=== PATIENT | male | born 1960 | race Caucasian/White ===

== ENCOUNTER 2017-02-27 08:25 | Emergency (ER) | payer BC ==
[2017-02-27 08:41] VITALS: BP 151/66
[2017-02-27] MEDS ORDERED: Sodium Chloride 0.9% 1,000 ML IV ONE (08:42)
--- NOTE | 2017-02-27 08:42 | EDM.PDOC ---
ED HPI GENERAL MEDICAL PROBLEM - General Chief Complaint: Neuro Symptoms/Deficits Stated Complaint: altered mental status Time Seen by Provider: 02/27/17 08:30 Source of Information: Reports: EMS, Family History Limitations: Reports: Altered Mental Status - History of Present Illness INITIAL COMMENTS - FREE TEXT/NARRATIVE: 56 yo wm PMH of IDDM who presents to ER by private car due to blood sugar of 60. Pt was able to assist from wheelchair to bed but currently refuses to respond to commands. Pt does verbalize to friends at bedside but appears altered. Pt blood sugar in ER was 80. Pt is currently hemodynamically stable and apparently has history of anxiety attacks but unclear if this behavior has occurred in the past. Onset: Sudden Duration: Hour(s): (1) Improves with: Reports: None Worsens with: Reports: None Associated Symptoms: Reports: No Other Symptoms. Denies: Confusion, Fever/ Chills, Seizure - Related Data Allergies Allergy/AdvReac Type Severity Reaction Status Date / Time No Known Drug Allergies Allergy Cannot Verified 02/27/17 08:58 Remember Home Meds: Home Meds Acetaminophen [Tylenol] 650 mg PO TID 02/27/17 [History] Aspirin [Ecotrin] 1 tab PO DAILY 02/27/17 [History] Calcium Carbonate/Vitamin D3 [Calcium 600 + Vit D 400 Softgl] 1 tab PO BIDMEALS 02/27/17 [History] Hydrochlorothiazide 1 tab PO DAILY 02/27/17 [History] Insulin Aspart [NovoLOG] 30 units SQ ACDINNER 02/27/17 [History] Insulin Aspart [NovoLOG] 35 units SQ ASDIRECTED 02/27/17 [History] Insulin Glarg,Human.Rec.Analog [Lantus] 30 units SQ ACBREAKFAST 02/27/17 [ History] Insulin Glarg,Human.Rec.Analog [Lantus] 45 units SQ BEDTIME 02/27/17 [History] Omeprazole 1 cap PO DAILY 02/27/17 [History] Polyethylene Glycol 3350 [MiraLAX] 1 pkt PO DAILY PRN 02/27/17 [History] Rosuvastatin [Crestor] 2.5 mg PO DAILY 02/27/17 [History] ED ROS GENERAL - Review of Systems Review Of Systems: See Below Constitutional: Reports: No Symptoms HEENT: Reports: No Symptoms Respiratory: Reports: No Symptoms Cardiovascular: Reports: No Symptoms Endocrine: Reports: No Symptoms GI/Abdominal: Reports: No Symptoms : Reports: No Symptoms Musculoskeletal: Reports: No Symptoms Skin: Reports: No Symptoms Neurological: Reports: No Symptoms Psychiatric: Reports: Anxiety Hematologic/Lymphatic: Reports: No Symptoms Immunologic: Reports: No Symptoms ED EXAM, GENERAL - Physical Exam Exam: See Below Exam Limited By: Altered Mental Status General Appearance: Alert, Anxious Eye Exam: Bilateral Eye: EOMI, PERRL Nose: Normal Inspection, Normal Mucosa, No Blood Throat/Mouth: Normal Inspection, Normal Lips, Normal Teeth, Normal Gums, Normal Oropharynx, Normal Voice, No Airway Compromise Head: Atraumatic, Normocephalic Neck: Normal Inspection, Supple, Non-Tender, Full Range of Motion Respiratory/Chest: No Respiratory Distress, Lungs Clear, Normal Breath Sounds, No Accessory Muscle Use, Chest Non-Tender Cardiovascular: Normal Peripheral Pulses, Regular Rate, Rhythm, No Edema, No Gallop, No JVD, No Murmur, No Rub GI/Abdominal: Normal Bowel Sounds, Soft, Non-Tender, No Organomegaly, No Distention, No Abnormal Bruit, No Mass Back Exam: Normal Inspection, Full Range of Motion, NT Extremities: Normal Inspection, Normal Range of Motion, Non-Tender, Normal Capillary Refill, No Pedal Edema Neurological: CN II-XII Intact, Slow to Respond. No: Unresponsive, Abnormal Reflexes, Sensory/Motor Deficit Psychiatric: Anxious, Depressed Mood Skin Exam: Warm, Dry, Intact, Normal Color, No Rash Lymphatic: No Adenopathy EKG INTERPRETATION EKG Date: 02/27/17 Time: 09:02 Rhythm: NSR Rate (beats/min): 85 [place]: normal P-wave: present QRS: normal ST-T: normal QT: normal Comparison: NA - no prior EKG Course - Vital Signs Last Recorded V/S: Last Vital Signs Temp 37.4 C 02/27/17 08:35 Pulse 88 02/27/17 08:35 Resp 20 02/27/17 08:35 BP 151/66 H 02/27/17 08:35 Pulse Ox 94 L 02/27/17 08:35 - Orders/Labs/Meds Orders: Active Orders 24 hr Category Date Time Status EKG Documentation Completion [RC] ASDIRECTED Care 02/27/17 08:43 Active Chest 1V Frontal [CR] Stat Exams 02/27/17 08:42 Taken Head wo Cont [CT] Stat Exams 02/27/17 08:42 Taken EKG 12 Lead [EK] Routine Ther 02/27/17 08:42 Ordered Labs: Laboratory Tests 02/27/17 02/27/17 Range/Units 08:59 08:59 WBC 11.1 H (5.0-10.0) 10^3/uL RBC 4.10 L (4.50-6.00) 10^6/uL Hgb 12.6 L (13.0-17.0) g/dL Hct 38.0 L (40.0-52.0) % MCV 92.7 H (82.0-92.0) fL MCH 30.8 (27.0-31.0) pg MCHC 33.2 (32.0-36.0) g/dL RDW 12.2 (11.5-14.5) % Plt Count 449 H (150-300) 10^3/uL MPV 8.4 (7.4-10.4) fL Neut % (Auto) 75.8 H (50.0-70.0) % Lymph % (Auto) 16.7 L (20.0-40.0) % [place] % (Auto) 5.5 (2.0-8.0) % Eos % (Auto) 2.0 (1.0-3.0) % Baso % (Auto) 0.0 (0.0-1.0) % Neut # (Auto) 8.4 H (2.5-7.0) 10^3/uL Lymph # (Auto) 1.9 (1.0-4.0) 10^3/uL [place] # (Auto) 0.6 (0.1-0.8) 10^3/uL Eos # (Auto) 0.2 (0.1-0.3) 10^3/uL Baso # (Auto) 0.0 (0.0-0.1) 10^3/uL Sodium 140 (136-145) mmol/L Potassium 3.9 (3.3-5.3) mmol/L Chloride 101 (98-115) mmol/L Carbon Dioxide 31.3 (21.0-32.0) mmol/L BUN 20 (6-25) mg/dL Creatinine 0.71 (0.51-1.17) mg/dL Est Cr Clr Drug Dosing 135.07 mL/min Estimated GFR (MDRD) > 60 mL/min Glucose 108 (70-110) mg/dL Calcium 8.9 (8.7-10.3) mg/dL Total Bilirubin 0.8 (0.2-1.0) mg/dL AST 34 (15-37) U/L ALT 27 (12-78) U/L Alkaline Phosphatase 97 (46-116) IU/L Creatine Kinase 234 (26-276) U/L CK-MB (CK-2) 4.40 H* (0.00-4.30) ng/mL Troponin I < 0.04 (0.00-0.070) ng/mL Total Protein 8.4 H (6.4-8.2) g/dL Albumin 3.46 (3.00-4.80) g/dL Meds: Medications Discontinued Medications Generic Name Dose Route Start Last Admin Trade Name Freq PRN Reason Stop Dose Admin Sodium Chloride 1,000 mls @ 999 mls/hr 02/27/17 08:42 02/27/17 09:25 Normal Saline IV 02/27/17 09:42 999 mls/hr .BOLUS ONE Administration - Radiology Interpretation Free Text/Narrative:: CT Brain- NAD CXR- NAD Departure - Departure Time of Disposition: 09:44 Disposition: Refer to Observation Condition: fair Clinical Impression: Anxiety and depression, Conversion disorder Altered mental state Qualifiers: Altered mental status type: unspecified Qualified Code(s): R41.82 - Altered mental status, unspecified - Discharge Information Referrals: PCP,Unobtain [Primary Care Provider] - Forms: ED Department Discharge - My Orders Last 24 Hours: My Active Orders 02/27/17 08:42 Chest 1V Frontal [CR] Stat Head wo Cont [CT] Stat EKG 12 Lead [EK] Routine 02/27/17 08:43 EKG Documentation Completion [RC] ASDIRECTED - Assessment/Plan Last 24 Hours: My Active Orders 02/27/17 08:42 Chest 1V Frontal [CR] Stat Head wo Cont [CT] Stat EKG 12 Lead [EK] Routine 02/27/17 08:43 EKG Documentation Completion [RC] ASDIRECTED Assessment:: 1. Altered mental Status 2. Anxiety disorder Plan: 1. [facility] to [facility] for [facility] and further management
[2017-02-27 09:33] LABS: CHLORIDE,CL 101 mmol/L (98-115); SODIUM,NA 140 mmol/L (136-145)
--- NOTE | 2017-02-27 14:02 | EDM.PDOC ---
ED HPI GENERAL MEDICAL PROBLEM - General Chief Complaint: Neuro Symptoms/Deficits Stated Complaint: UNRESPONSIVE Time Seen by Provider: 02/27/17 13:30 Source of Information: Reports: EMS, Family History Limitations: Reports: Altered Mental Status - History of Present Illness INITIAL COMMENTS - FREE TEXT/NARRATIVE: 56 yo wm PMH of IDDM who presents to ER by private car due to blood sugar of 60. Pt was able to assist from wheelchair to bed but currently refuses to respond to commands. Pt does verbalize to friends at bedside but appears altered. Pt blood sugar in ER was 80. Pt is currently hemodynamically stable and apparently has history of anxiety attacks but unclear if this behavior has occurred in the past. Onset: Sudden Duration: Hour(s): (1) Improves with: Reports: None Worsens with: Reports: None Associated Symptoms: Reports: No Other Symptoms. Denies: Confusion, Fever/ Chills, Seizure - Related Data Allergies Allergy/AdvReac Type Severity Reaction Status Date / Time No Known Drug Allergies Allergy Cannot Verified 02/27/17 08:58 Remember Home Meds: Home Meds Acetaminophen [Tylenol] 650 mg PO TID 02/27/17 [History] Aspirin [Ecotrin] 1 tab PO DAILY 02/27/17 [History] Calcium Carbonate/Vitamin D3 [Calcium 600 + Vit D 400 Softgl] 1 tab PO BIDMEALS 02/27/17 [History] Hydrochlorothiazide 1 tab PO DAILY 02/27/17 [History] Insulin Aspart [NovoLOG] 30 units SQ ACDINNER 02/27/17 [History] Insulin Aspart [NovoLOG] 35 units SQ ASDIRECTED 02/27/17 [History] Insulin Glarg,Human.Rec.Analog [Lantus] 30 units SQ ACBREAKFAST 02/27/17 [ History] Insulin Glarg,Human.Rec.Analog [Lantus] 45 units SQ BEDTIME 02/27/17 [History] Omeprazole 1 cap PO DAILY 02/27/17 [History] Polyethylene Glycol 3350 [MiraLAX] 1 pkt PO DAILY PRN 02/27/17 [History] Rosuvastatin [Crestor] 2.5 mg PO DAILY 02/27/17 [History] Past Medical History Cardiovascular History: Reports: High Cholesterol, Hypertension Gastrointestinal History: Reports: GERD Genitourinary History: Reports: Chronic Renal Insuffiency Musculoskeletal History: Reports: Neck Pain, Chronic Neurological History: Reports: Neuropathy, Diabetic Endocrine/Metabolic History: Reports: Diabetes, Type II, IDDM, Obesity/BMI 30+ - Infectious Disease History Infectious Disease History: Reports: MRSA - Past Surgical History GI Surgical History: Reports: Appendectomy, Cholecystectomy Musculoskeletal Surgical History: Reports: Arthroscopic Knee Social & Family History - Tobacco Use Smoking Status *Q: Never Smoker Second Hand Smoke Exposure: No - Caffeine Use Caffeine Use: Reports: None - Recreational Drug Use Recreational Drug Use: No ED ROS GENERAL - Review of Systems Review Of Systems: See Below Constitutional: Denies: Fever HEENT: Denies: Throat Pain, Vision Change Respiratory: Denies: Shortness of Breath Cardiovascular: Denies: Chest Pain GI/Abdominal: Denies: Abdominal Pain, Vomiting : Reports: No Symptoms Musculoskeletal: Reports: No Symptoms Skin: Reports: No Symptoms Neurological: Denies: Headache, Trouble Speaking Psychiatric: Reports: Anxiety ED EXAM, NEURO - Physical Exam Exam: See Below Exam Limited By: No Limitations General Appearance: Alert, WD/WN, Anxious Eye Exam: Bilateral Eye: EOMI, Normal Inspection, PERRL Ears: Normal External Exam, Hearing Grossly Normal Nose: Normal Inspection, No Blood. No: Nasal Drainage Throat/Mouth: Normal Lips, Normal Voice, No Airway Compromise Head Exam: Atraumatic, Normocephalic Neck: Normal Inspection, Supple, Non-Tender, Full Range of Motion Respiratory/Chest: No Respiratory Distress, Lungs Clear, Normal Breath Sounds, No Accessory Muscle Use Cardiovascular: Regular Rate, Rhythm, No Murmur GI/Abdominal: Soft, Non-Tender Neurological: Alert, CN II-XII Intact, No Motor/Sensory Deficits, Oriented x 3 Psychiatric: Anxious, Tearful, Other (Patient tells me he is getting overwhelmed with the responsibilities at work since a co-worker is out on maternity leave; and also that he is stressed about transportation to and from work since he can't drive.) Skin Exam: Warm, Dry, Intact, Normal Color, No Rash Course - Vital Signs Last Recorded V/S: Last Vital Signs Temp 99.3 F 02/27/17 08:35 Pulse 88 02/27/17 08:35 Resp 20 02/27/17 08:35 BP 151/66 H 02/27/17 08:35 Pulse Ox 94 L 02/27/17 08:35 - Orders/Labs/Meds Orders: Active Orders 24 hr Category Date Time Status EKG Documentation Completion [RC] ASDIRECTED Care 02/27/17 08:43 Active Chest 1V Frontal [CR] Stat Exams 02/27/17 08:42 Taken Head wo Cont [CT] Stat Exams 02/27/17 08:42 Taken EKG 12 Lead [EK] Routine Ther 02/27/17 08:42 Ordered Labs: Laboratory Tests 02/27/17 02/27/17 02/27/17 Range/Units 08:59 08:59 11:18 WBC 11.1 H (5.0-10.0) 10^3/uL RBC 4.10 L (4.50-6.00) 10^6/uL Hgb 12.6 L (13.0-17.0) g/dL Hct 38.0 L (40.0-52.0) % MCV 92.7 H (82.0-92.0) fL MCH 30.8 (27.0-31.0) pg MCHC 33.2 (32.0-36.0) g/dL RDW 12.2 (11.5-14.5) % Plt Count 449 H (150-300) 10^3/uL MPV 8.4 (7.4-10.4) fL Neut % (Auto) 75.8 H (50.0-70.0) % Lymph % (Auto) 16.7 L (20.0-40.0) % [place] % (Auto) 5.5 (2.0-8.0) % Eos % (Auto) 2.0 (1.0-3.0) % Baso % (Auto) 0.0 (0.0-1.0) % Neut # (Auto) 8.4 H (2.5-7.0) 10^3/uL Lymph # (Auto) 1.9 (1.0-4.0) 10^3/uL [place] # (Auto) 0.6 (0.1-0.8) 10^3/uL Eos # (Auto) 0.2 (0.1-0.3) 10^3/uL Baso # (Auto) 0.0 (0.0-0.1) 10^3/uL Sodium 140 (136-145) mmol/L Potassium 3.9 (3.3-5.3) mmol/L Chloride 101 (98-115) mmol/L Carbon Dioxide 31.3 (21.0-32.0) mmol/L BUN 20 (6-25) mg/dL Creatinine 0.71 (0.51-1.17) mg/dL Est Cr Clr Drug Dosing 135.07 mL/min Estimated GFR (MDRD) > 60 mL/min Glucose 108 (70-110) mg/dL POC Glucose 81 (74-106) mg/dl Calcium 8.9 (8.7-10.3) mg/dL Total Bilirubin 0.8 (0.2-1.0) mg/dL AST 34 (15-37) U/L ALT 27 (12-78) U/L Alkaline Phosphatase 97 (46-116) IU/L Creatine Kinase 234 (26-276) U/L CK-MB (CK-2) 4.40 H* (0.00-4.30) ng/mL Troponin I < 0.04 (0.00-0.070) ng/mL Total Protein 8.4 H (6.4-8.2) g/dL Albumin 3.46 (3.00-4.80) g/dL Urine Opiates Screen (NEGATIVE) Ur Oxycodone Screen (NEGATIVE) Urine Methadone Screen (NEGATIVE) Ur Propoxyphene Screen (NEGATIVE) Ur Barbiturates Screen (NEGATIVE) Ur Tricyclics Screen (NEGATIVE) Ur Phencyclidine Scrn (NEGATIVE) Ur Amphetamine Screen (NEGATIVE) U Methamphetamines Scrn (NEGATIVE) U Benzodiazepines Scrn (NEGATIVE) U Cocaine Metab Screen (NEGATIVE) U Marijuana (THC) Screen (NEGATIVE) 02/27/17 Range/Units 12:52 WBC (5.0-10.0) 10^3/uL RBC (4.50-6.00) 10^6/uL Hgb (13.0-17.0) g/dL Hct (40.0-52.0) % MCV (82.0-92.0) fL MCH (27.0-31.0) pg MCHC (32.0-36.0) g/dL RDW (11.5-14.5) % Plt Count (150-300) 10^3/uL MPV (7.4-10.4) fL Neut % (Auto) (50.0-70.0) % Lymph % (Auto) (20.0-40.0) % [place] % (Auto) (2.0-8.0) % Eos % (Auto) (1.0-3.0) % Baso % (Auto) (0.0-1.0) % Neut # (Auto) (2.5-7.0) 10^3/uL Lymph # (Auto) (1.0-4.0) 10^3/uL [place] # (Auto) (0.1-0.8) 10^3/uL Eos # (Auto) (0.1-0.3) 10^3/uL Baso # (Auto) (0.0-0.1) 10^3/uL Sodium (136-145) mmol/L Potassium (3.3-5.3) mmol/L Chloride (98-115) mmol/L Carbon Dioxide (21.0-32.0) mmol/L BUN (6-25) mg/dL Creatinine (0.51-1.17) mg/dL Est Cr Clr Drug Dosing mL/min Estimated GFR (MDRD) mL/min Glucose (70-110) mg/dL POC Glucose (74-106) mg/dl Calcium (8.7-10.3) mg/dL Total Bilirubin (0.2-1.0) mg/dL AST (15-37) U/L ALT (12-78) U/L Alkaline Phosphatase (46-116) IU/L Creatine Kinase (26-276) U/L CK-MB (CK-2) (0.00-4.30) ng/mL Troponin I (0.00-0.070) ng/mL Total Protein (6.4-8.2) g/dL Albumin (3.00-4.80) g/dL Urine Opiates Screen Negative (NEGATIVE) Ur Oxycodone Screen Negative (NEGATIVE) Urine Methadone Screen Negative (NEGATIVE) Ur Propoxyphene Screen Negative (NEGATIVE) Ur Barbiturates Screen Negative (NEGATIVE) Ur Tricyclics Screen Negative (NEGATIVE) Ur Phencyclidine Scrn Negative (NEGATIVE) Ur Amphetamine Screen Negative (NEGATIVE) U Methamphetamines Scrn Negative (NEGATIVE) U Benzodiazepines Scrn Negative (NEGATIVE) U Cocaine Metab Screen Negative (NEGATIVE) U Marijuana (THC) Screen Negative (NEGATIVE) Meds: Medications Discontinued Medications Generic Name Dose Route Start Last Admin Trade Name Pablo PRN Reason Stop Dose Admin Sodium Chloride 1,000 mls @ 999 mls/hr 02/27/17 08:42 02/27/17 09:25 Normal Saline IV 02/27/17 09:42 999 mls/hr .BOLUS ONE Administration - Re-Assessments/Exams Free Text/Narrative Re-Assessment/Exam: 02/27/17 14:07 Took over this patient who has been in observation for a few hours. Labs are okay and UDS is negative. When I walked into the room and addressed him and introduced myself he opened his eyes briefly and then rubbed his face and eyes and began conversing with me. He says he is stressed about his [id number] having to drive him the six miles from home to and from work everyday and that he is having difficulty with the workload also since his co-worker has been on maternity leave. He works in [employer] at [employer] and has worked there for 37 years. He feels like he is a burden to everybody. I asked if he has any help from psych social worker and he denies. I asked if moving to town where he could walk to work would be an option but he doesn't know. He lives with his 91 year old mother [place] farm. He feels okay right now and feels like he could go home. Jose Alfredo Chatman, psych social worker, was notified and will follow up with him. Patient discharged in stable condition. Departure - Departure Time of Disposition: 14:09 Disposition: Home, Self-Care 01 Condition: fair Clinical Impression: Anxiety and depression, Conversion disorder Altered mental state Qualifiers: Altered mental status type: unspecified Qualified Code(s): R41.82 - Altered mental status, unspecified - Discharge Information Referrals: PCP,Unobtain [Primary Care Provider] - Forms: ED Department Discharge Additional Instructions: 1. No work for two days. 2. financial services auditor will be in contact with you to see if they can help with any of the transportation and work challenges. 3. Follow up with your primary doctor in 1-3 days for recheck.
== END 2017-02-27 14:35 | disposition home or self-care (01) ==
LOC: KA.ED 08:25
DX: R41.82 Altered mental status, unspecified (principal); F41.9 Anxiety disorder, unspecified; F32.9 Major depressive disorder, single episode, unspecified; F44.9 Dissociative and conversion disorder, unspecified; I12.9 Hypertensive chronic kidney disease with stage 1 through stage 4 chronic kidney disease, or unspecified chronic kidney disease; E11.22 Type 2 diabetes mellitus with diabetic chronic kidney disease; N18.9 Chronic kidney disease, unspecified; E11.40 Type 2 diabetes mellitus with diabetic neuropathy, unspecified; E66.9 Obesity, unspecified; E78.00 Pure hypercholesterolemia, unspecified; Z68.30 Body mass index [BMI] 30.0-30.9, adult; Z90.49 Acquired absence of other specified parts of digestive tract; Z79.82 Long term (current) use of aspirin; Z79.4 Long term (current) use of insulin; Z79.899 Other long term (current) drug therapy; Z96.659 Presence of unspecified artificial knee joint
CPT/HCPCS: 70450; 71010; 80053; 80305; 82550; 82553; 82962; 84484; 85025; 93005; 96360; 96361; 99284; J7030

== ENCOUNTER 2017-03-14 11:00 | Emergency (ER) | payer BC ==
[2017-03-14 11:24] VITALS: BP 137/65
--- NOTE | 2017-03-14 11:45 | EDM.PDOC ---
ED HPI GENERAL MEDICAL PROBLEM - General Chief Complaint: Behavioral/Psych Stated Complaint: anxiety Time Seen by Provider: 03/14/17 11:27 Source of Information: Reports: Patient History Limitations: Reports: No Limitations - History of Present Illness INITIAL COMMENTS - FREE TEXT/NARRATIVE: PT STATES WHILE HE WAS WORKING THIS AM, HE DEVELOPED WEAKNESS. SAID TO HAVE POSSIBLE PANIC ATTACK BY STAFF AT FACILITY. QUESTIONABLE ACTIONS PER EMS TO WHETHER HE IS HAVING PANIC ATTACK AND IF LOSES CONSCIOUSNESS OR NOT. GENERAL SUPERINTENDENT, JAZLYN ELENA HAS INTERVENED PREVIOUSLY ON THE PT'S BEHALF AND IS AWARE OF THE DYNAMICS INVOLVED WITH CONDITION. PT DENIES CP, SOB, JEAN, ANY FALL OR TRAUMA , SUICIDAL OR HOMICIDAL IDEATION. 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 Onset: Today Onset Date: 03/14/17 Onset Time: 10:00 Severity: Mild Improves with: Reports: None Worsens with: Reports: None Associated Symptoms: Reports: Weakness - Related Data Allergies Allergy/AdvReac Type Severity Reaction Status Date / Time No Known Drug Allergies Allergy Cannot Verified 03/14/17 11:21 Remember Home Meds: Home Meds Acetaminophen [Tylenol] 650 mg PO TID 02/27/17 [History] Aspirin [Ecotrin] 1 tab PO DAILY 02/27/17 [History] Calcium Carbonate/Vitamin D3 [Calcium 600 + Vit D 400 Softgl] 1 tab PO BIDMEALS 02/27/17 [History] Hydrochlorothiazide 1 tab PO DAILY 02/27/17 [History] Insulin Aspart [NovoLOG] 30 units SQ ACDINNER 02/27/17 [History] Insulin Aspart [NovoLOG] 35 units SQ ASDIRECTED 02/27/17 [History] Insulin Glarg,Human.Rec.Analog [Lantus] 30 units SQ ACBREAKFAST 02/27/17 [ History] Insulin Glarg,Human.Rec.Analog [Lantus] 45 units SQ BEDTIME 02/27/17 [History] Omeprazole 1 cap PO DAILY 02/27/17 [History] Polyethylene Glycol 3350 [MiraLAX] 1 pkt PO DAILY PRN 02/27/17 [History] Rosuvastatin [Crestor] 2.5 mg PO DAILY 02/27/17 [History] Escitalopram [Lexapro] 10 mg PO DAILY 03/14/17 [History] Liraglutide [Victoza] 1.8 mg SUBCUT DAILY 03/14/17 [History] Sulfamethoxazole/Trimethoprim [Bactrim Ds Tablet] 1 each PO BID 03/14/17 [ History] metFORMIN [Glucophage] 1,000 mg PO BIDMEALS 03/14/17 [History] Past Medical History Cardiovascular History: Reports: High Cholesterol, Hypertension Gastrointestinal History: Reports: GERD Genitourinary History: Reports: Chronic Renal Insuffiency Musculoskeletal History: Reports: Neck Pain, Chronic Neurological History: Reports: Neuropathy, Diabetic Endocrine/Metabolic History: Reports: Diabetes, Type II, IDDM, Obesity/BMI 30+ - Infectious Disease History Infectious Disease History: Reports: MRSA - Past Surgical History GI Surgical History: Reports: Appendectomy, Cholecystectomy Musculoskeletal Surgical History: Reports: Arthroscopic Knee Social & Family History - Tobacco Use Smoking Status *Q: Never Smoker Second Hand Smoke Exposure: No - Caffeine Use Caffeine Use: Reports: None - Recreational Drug Use Recreational Drug Use: No ED ROS GENERAL - Review of Systems Review Of Systems: ROS reveals no pertinent complaints other than HPI. Constitutional: Reports: Weakness HEENT: Reports: No Symptoms Respiratory: Reports: No Symptoms Cardiovascular: Reports: No Symptoms Endocrine: Reports: No Symptoms GI/Abdominal: Reports: No Symptoms : Reports: No Symptoms Musculoskeletal: Reports: No Symptoms Skin: Reports: No Symptoms Neurological: Reports: Dizziness Psychiatric: Reports: Anxiety. Denies: Homicidal Ideation, Suicidal Ideation Hematologic/Lymphatic: Reports: No Symptoms Immunologic: Reports: No Symptoms ED EXAM, BEHAVIORAL HEALTH - Physical Exam Exam: See Below Exam Limited By: No Limitations General Appearance: Alert, WD/WN, No Apparent Distress Eye Exam: Bilateral Eye: Normal Inspection Nose: Normal Inspection, Normal Mucosa, No Blood Throat/Mouth: Normal Inspection, Normal Oropharynx, No Airway Compromise Head: Atraumatic, Normocephalic Neck: Normal Inspection, Supple, Non-Tender Respiratory/Chest: No Respiratory Distress, Lungs Clear, Normal Breath Sounds, No Accessory Muscle Use, Chest Non-Tender Cardiovascular: Regular Rate, Rhythm, No Murmur, No Rub GI/Abdominal: Normal Bowel Sounds, Soft, Non-Tender, No Organomegaly, No Distention, No Abnormal Bruit, No Mass Back Exam: Normal Inspection. No: CVA Tenderness (L), CVA Tenderness (R) Extremities: Normal Inspection, Normal Range of Motion, Non-Tender, No Pedal Edema Neurological: Alert, CN II-XII Intact, Normal Cognition, No Motor/Sensory Deficits Psychiatric: Alert, Normal Cognition, Oriented, Flat Affect Skin Exam: Warm, Dry, Intact, Normal color, No rash EKG INTERPRETATION EKG Date: 03/14/17 Time: 11:45 Rhythm: NSR Rate (beats/min): 72 [place]: normal P-wave: present QRS: normal ST-T: normal QT: normal Comparison: NA - no prior EKG COURSE, BEHAVIORAL HEALTH COMP - Course Vital Signs: Last Vital Signs Temp 98.8 F 03/14/17 11:17 Pulse 72 03/14/17 11:17 Resp 20 03/14/17 11:17 BP 137/65 03/14/17 11: Pulse Ox 96 03/14/17 11:17 Orders, Labs, Meds: Active Orders 24 hr Category Date Time Status EKG Documentation Completion [RC] ASDIRECTED Care 03/14/17 11:28 Ordered CBC WITH AUTO DIFF [HEME] Stat Lab 03/14/17 11:27 Ordered COMPREHENSIVE METABOLIC PN,CMP [CHEM] Stat Lab 03/14/17 11:27 Ordered UA W/MICROSCOPIC [URIN] Stat Lab 03/14/17 11:27 Uncollected EKG 12 Lead [EK] Routine Ther 03/14/17 11:28 Ordered Re-Assessment/Re-Exam: PT AFEBRILE, NONTOXIC APPEARING, VSS, ACTING APPROPRIATE. DENIES CP, SOB, JEAN, SUICIDAL IDEATION. SISTER IN LAW PICKING UP PT. Departure - Departure Time of Disposition: 12:49 Disposition: Home, Self-Care 01 Condition: good Clinical Impression: Anxiety, Anxiety and depression - Discharge Information Instructions: Panic Attacks, [id number] Forms: ED Department Discharge Additional Instructions: FOLLOW UP WITH PCP IN NEXT 2 DAYS. RETURN TO ER SOONER IF SYMPTOMS CONTINUE. TAKE MEDICATION DIRECTED - My Orders Last 24 Hours: My Active Orders 03/14/17 11:27 CBC WITH AUTO DIFF [HEME] Stat COMPREHENSIVE METABOLIC PN,CMP [CHEM] Stat UA W/MICROSCOPIC [URIN] Stat 03/14/17 11:28 EKG Documentation Completion [RC] ASDIRECTED EKG 12 Lead [EK] Routine - Assessment/Plan Last 24 Hours: My Active Orders 03/14/17 11:27 CBC WITH AUTO DIFF [HEME] Stat COMPREHENSIVE METABOLIC PN,CMP [CHEM] Stat UA W/MICROSCOPIC [URIN] Stat 03/14/17 11:28 EKG Documentation Completion [RC] ASDIRECTED EKG 12 Lead [EK] Routine Assessment:: ANXIETY Plan: F/U WITH PCP AND SOURCING CONSULTANT
[2017-03-14] MEDS ORDERED: Sodium Chloride 0.9% 1,000 ML IV ONE (12:19)
== END 2017-03-14 13:30 | disposition home or self-care (01) ==
LOC: KA.ED 11:00
DX: F32.9 Major depressive disorder, single episode, unspecified (principal); F41.9 Anxiety disorder, unspecified; E78.00 Pure hypercholesterolemia, unspecified; K21.9 Gastro-esophageal reflux disease without esophagitis; E11.40 Type 2 diabetes mellitus with diabetic neuropathy, unspecified; E66.9 Obesity, unspecified; Z79.82 Long term (current) use of aspirin; Z79.4 Long term (current) use of insulin; Z79.84 Long term (current) use of oral hypoglycemic drugs; Z90.49 Acquired absence of other specified parts of digestive tract; Z98.890 Other specified postprocedural states; Z68.37 Body mass index [BMI] 37.0-37.9, adult
CPT/HCPCS: 80053; 81001; 85025; 96360; 99284; J7030; 93005

== ENCOUNTER 2017-05-11 08:39 | Inpatient (IN) | payer BC ==
[2017-05-11] MEDS ORDERED: cefTRIAXone 2 GM Vial IV SCH (16:00)
[2017-05-11] MEDS ORDERED: Polyethylene Glycol 3350 Powder 17 GM Packet PO PRN (16:09)
[2017-05-11] MEDS: Insulin Regular, Human 100 Units/ML 10 ML Vial SUBCUT SCH ×2 (17:40→21:33)
[2017-05-11] MEDS: Calcium Citrate/Vitamin D3 315 MG-250 Unit Tab PO SCH (17:44)
[2017-05-11] MEDS: metFORMIN 500 MG Tab PO SCH (17:45)
[2017-05-11] MEDS: Losartan 50 MG Tab PO SCH (21:09)
[2017-05-11] MEDS: Insulin Detemir 100 Units/ML 3 ML Pen SUBCUT SCH (21:10)
[2017-05-11] MEDS: Potassium Chloride 10 MEQ Tab.ER PO SCH (21:10)
[2017-05-11] MEDS: metroNIDAZOLE 500 MG Tab PO SCH (21:10)
[2017-05-11] MEDS: Acetaminophen 325 MG Tab PO SCH (21:37)
[2017-05-12] MEDS: Insulin Regular, Human 100 Units/ML 10 ML Vial SUBCUT SCH ×4 (07:15→21:24)
[2017-05-12] MEDS: Calcium Citrate/Vitamin D3 315 MG-250 Unit Tab PO SCH ×2 (09:03→17:19)
[2017-05-12] MEDS: metFORMIN 500 MG Tab PO SCH ×2 (09:03→17:19)
[2017-05-12] MEDS: Aspirin 325 MG Tab.EC PO SCH (09:04)
[2017-05-12] MEDS: Omeprazole 20 MG Cap.CR PO SCH (09:04)
[2017-05-12] MEDS: Potassium Chloride 10 MEQ Tab.ER PO SCH ×2 (09:05→21:21)
[2017-05-12] MEDS: metroNIDAZOLE 500 MG Tab PO SCH ×3 (09:05→21:21)
[2017-05-12] MEDS: Hydrochlorothiazide 25 MG Tab PO SCH (09:05)
[2017-05-12] MEDS: Rosuvastatin 10 MG Tab PO SCH (09:06)
[2017-05-12] MEDS: Acetaminophen 325 MG Tab PO SCH ×3 (09:07→21:21)
[2017-05-12] MEDS: Escitalopram 10 MG Tab PO SCH (09:07)
[2017-05-12] MEDS: Losartan 50 MG Tab PO SCH ×2 (09:08→21:21)
[2017-05-12] MEDS: Insulin Detemir 100 Units/ML 3 ML Pen SUBCUT SCH ×2 (09:08→21:22)
[2017-05-12] MEDS: Liraglutide (rDNA Origin) 0.6 MG/0.1 ML 3 ML Pen SUBCUT SCH (09:09)
--- NOTE | 2017-05-12 09:53 | PCM.HP ---
H&P History of Present Illness - General Date of Service: 05/12/17 Source of Information: Patient, Old Records, RN History Limitations: Reports: No Limitations - History of Present Illness Initial Comments - Free Text/Narative: This 56-year-old gentleman with long-standing diabetes mellitus is in swing bed status for wound VAC therapy due to a left diabetic foot ulcer. Patient underwent left foot irrigation and debridement with excision of nonviable soft tissue and bone with wound VAC placement by Dr. Barrow in [facility]. He currently has a PICC line in. He is to continue with Rocephin for 6 weeks along with oral Flagyl for anaerobic coverage per ID recommendations. Culture demonstrated strep. Patient had Zosyn and vancomycin previously. Patient has had history of MRSA, however current cultures did not grow MRSA. Patient had normal AB index. He had previously been placed in offloading boot however wound continued to increase in size and depth. He had a negative MRI for osteomyelitis - Related Data Allergies/Adverse Reactions: Allergies Allergy/AdvReac Type Severity Reaction Status Date / Time No Known Drug Allergies Allergy Cannot Verified 05/11/17 16:15 Remember Home Medications: Home Meds Acetaminophen [Tylenol] 650 mg PO TID 02/27/17 [History] Aspirin [Ecotrin] 1 tab PO DAILY 02/27/17 [History] Calcium Carbonate/Vitamin D3 [Calcium 600 + Vit D 400 Softgl] 1 tab PO BIDMEALS 02/27/17 [History] Hydrochlorothiazide 1 tab PO DAILY 02/27/17 [History] Insulin Aspart [NovoLOG] 3 - 11 units SQ ASDIRECTED 02/27/17 [History] Insulin Aspart [NovoLOG] 25 units SQ TID 02/27/17 [History] Insulin Glarg,Human.Rec.Analog [Lantus] 33 units SQ BID 02/27/17 [History] Omeprazole 1 cap PO DAILY 02/27/17 [History] Polyethylene Glycol 3350 [MiraLAX] 1 pkt PO DAILY PRN 02/27/17 [History] Rosuvastatin [Crestor] 5 mg PO DAILY 02/27/17 [History] Liraglutide [Victoza] 1.8 mg SUBCUT DAILY 03/14/17 [History] metFORMIN [Glucophage] 1,000 mg PO BIDMEALS 03/14/17 [History] Acetaminophen with Codeine [Tylenol with Codeine #3 Tablet] 1 - 2 tab PO Q4H PRN 05/11/17 [History] Escitalopram [Lexapro] 10 mg PO DAILY 05/11/17 [History] Losartan [Cozaar] 50 mg PO BID 05/11/17 [History] Potassium Chloride 10 meq PO BID 05/11/17 [History] cefTRIAXone [Rocephin] 2 g IV Q24H 05/11/17 [History] metroNIDAZOLE [Flagyl] 500 mg PO TID 05/11/17 [History] Past Medical History HEENT History: Reports: Impaired Vision Cardiovascular History: Reports: High Cholesterol, Hypertension Gastrointestinal History: Reports: GERD Genitourinary History: Reports: Chronic Renal Insuffiency Musculoskeletal History: Reports: Neck Pain, Chronic Neurological History: Reports: Neuropathy, Diabetic Endocrine/Metabolic History: Reports: Diabetes, Type II, IDDM, Obesity/BMI 30+ - Infectious Disease History Infectious Disease History: Reports: MRSA - Past Surgical History HEENT Surgical History: Reports: None GI Surgical History: Reports: Appendectomy, Cholecystectomy Musculoskeletal Surgical History: Reports: Arthroscopic Knee Social & Family History - Family History HEENT: Reports: None Cardiac: Reports: None Respiratory: Reports: None GI: Reports: None : Reports: None OBGYN: Reports: None Musculoskeletal: Reports: None Neurological: Reports: None Psychiatric: Reports: None Endocrine/Metabolic: Reports: Diabetes, type II (Brother Low diabetes) Hematologic: Reports: None Immunologic: Reports: None Dermatologic: Reports: None Oncologic: Reports: Prostate (Father prostate cancer--) - Tobacco Use Smoking Status *Q: Never Smoker Second Hand Smoke Exposure: No - Caffeine Use Caffeine Use: Reports: Soda - Recreational Drug Use Recreational Drug Use: No H&P Review of Systems - Review of Systems: Review Of Systems: See Below General: Reports: No Symptoms HEENT: Reports: No Symptoms Pulmonary: Reports: No Symptoms Cardiovascular: Reports: No Symptoms Gastrointestinal: Reports: Diarrhea. Denies: Abdominal Pain, Black Stool, Bloody Stool, Decreased Appetite, Distension, Mucous in Stool, Nausea Genitourinary: Reports: No Symptoms Musculoskeletal: Reports: No Symptoms Skin: Reports: Wound (Diabetic foot ulcer-- left foot) Psychiatric: Reports: No Symptoms Neurological: Reports: No Symptoms Hematologic/Lymphatic: Reports: No Symptoms Immunologic: Reports: No Symptoms Exam - Exam Exam: See Below - Vital Signs Vital Signs: Last Vital Signs Temp 97.0 F 05/12/17 06:36 Pulse 68 05/12/17 06:36 Resp 18 05/12/17 06:36 BP 105/58 L 05/12/17 09:08 Pulse Ox 97 05/12/17 06:36 Weight: 286 lb 1.6 oz - Exam Quality Assessment: No: Supplemental Oxygen, Urinary Catheter, DVT Prophylaxis ( Will need to be placed on DVT prophylaxis) General: Alert, Oriented, Cooperative HEENT: Conjunctiva Clear, Hearing Intact, Mucosa Moist & [place], TMs Clear Neck: Supple, Trachea Midline, 2 Lungs: Clear to Auscultation, Normal Respiratory Effort Cardiovascular: Regular Rate, Regular Rhythm, Normal S1, Normal S2, Other ( Slight muffled heart tones) GI/Abdominal Exam: Normal Bowel Sounds, Soft, Non-Tender, No Organomegaly, No Distention, No Abnormal Bruit, Other (Large body habitus). No: Distended (Male) Exam: Deferred Rectal (Males) Exam: Deferred Back Exam: Normal Inspection Extremities: No Pedal Edema. No: Pedal Edema, Leg Pain, Redness Peripheral Pulses: 1+: Radial (R), 2+: Radial (L) Skin: Wound, Other (Diabetic foot ulcer-- left foot. Plantar wound VAC some drainage good distal pulses) Neurological: Cranial Nerves Intact, Reflexes Equal Bilateral Neuro Extensive - Mental Status: Alert, Oriented x3, Normal Mood/Affect, Normal Cognition Neuro Extensive - Motor, Sensory, Reflexes: CN II-XII Intact, Normal Gait, Normal Reflexes Psychiatric: Alert, Normal Affect, Normal Mood - Patient Data Lab Results Last 24 hrs: Laboratory Results - last 24 hr 05/11/17 05/11/17 05/12/17 Range/Units 17:36 21:00 06:51 POC Glucose 398 H 263 H 108 H (74-106) mg/dl *Q Meaningful Use (ADM) - VTE *Q VTE Criteria *Q: - Stroke *Q Stroke Criteria *Q: - AMI *Q AMI Criteria *Q: Problem List Initiated/Reviewed/Updated: Yes Orders Last 24hrs: Active Orders 24 hr Category Date Time Status Blood Glucose Check, Bedside [RC] QIDACANDBED Care 05/11/17 15:25 Active Communication Order [RC] DAILY Care 05/11/17 12:29 Active Communication Order [RC] DAILY Care 05/11/17 15:28 Active Communication Order [RC] WEEKLY Care 05/11/17 15:27 Active Wound Care [RC] Q3D Care 05/11/17 12:26 Active PT Evaluation and Treatment [CONS] Routine Cons 05/11/17 12:00 Active ADA Diabetic [[place] [employer] Diet] [DIET Diet 05/11/17 Dinner Active ] CRP [C-REACTIVE PROTEIN] [CHEM] Routine Lab 05/24/17 06:00 Ordered SEDIMENTATION RATE MANUAL [HEME] Routine Lab 05/24/17 06:00 Ordered Acetaminophen [Tylenol] Med 05/11/17 21:00 Active 650 mg PO TID Aspirin [Ecotrin] Med 05/12/17 09:00 Active 325 mg PO DAILY Calcium Citrate/Vitamin D3 [Calcium Citrate + D] Med 05/11/17 18:00 Active 2 tab PO BIDMEALS Escitalopram [Lexapro] Med 05/12/17 09:00 Active 10 mg PO DAILY Hydrochlorothiazide Med 05/12/17 09:00 Active 25 mg PO DAILY Insulin Detemir [Levemir] Med 05/11/17 21:00 Active 0 unit SUBCUT BID Insulin Regular, Human [NovoLIN R] Med 05/11/17 17:00 Active See Protocol SUBCUT QIDACANDBED Liraglutide [Victoza] Med 05/12/17 09:00 Active 0 mg SUBCUT DAILY Losartan [Cozaar] Med 05/11/17 21:00 Active 50 mg PO BID Omeprazole Med 05/12/17 09:00 Active 20 mg PO DAILY Polyethylene Glycol 3350 [MiraLAX] Med 05/11/17 16:09 Active 17 gm PO DAILY PRN Potassium Chloride [Klor-Con 10] Med 05/11/17 21:00 Active 10 meq PO BID Rosuvastatin [Crestor] Med 05/12/17 09:00 Active 5 mg PO DAILY Sodium Chloride 0.9% [Saline Flush] Med 05/12/17 11:00 Active 10 ml FLUSH DAILY cefTRIAXone [Rocephin] Med 05/12/17 11:00 Active 2 gm IV Q24H metFORMIN [Glucophage] Med 05/11/17 18:00 Active 1,000 mg PO BIDMEALS metroNIDAZOLE [Flagyl] Med 05/11/17 21:00 Active 500 mg PO TID Resuscitation Status Routine Resus Stat 05/11/17 17:26 Ordered Medication Orders Acetaminophen (Tylenol) 650 mg PO TID [facility] Last Admin: 05/12/17 09:07 Dose: 650 mg Admin: 05/11/17 21:37 Dose: 650 mg Aspirin (Ecotrin) 325 mg PO DAILY [facility] Last Admin: 05/12/17 09:04 Dose: 325 mg Calcium Citrate (Calcium Citrate + D) 2 tab PO BIDMEALS [facility] Last Admin: 05/12/17 09:03 Dose: 2 tab Admin: 05/11/17 17:44 Dose: 2 tab Ceftriaxone Sodium (Rocephin) 2 gm IV Q24H [facility] Escitalopram Oxalate (Lexapro) 10 mg PO DAILY [facility] Last Admin: 05/12/17 09:07 Dose: 10 mg Hydrochlorothiazide (Hydrochlorothiazide) 25 mg PO DAILY [facility] Last Admin: 05/12/17 09:05 Dose: 25 mg Insulin Detemir (Levemir) 0 unit SUBCUT BID [facility] Last Admin: 05/12/17 09:08 Dose: 33 units Admin: 05/11/17 21:10 Dose: 33 units Insulin Human Regular (Novolin R) 0 unit SUBCUT QIDACANDBED [facility] PRN Reason: Protocol Last Admin: 05/12/17 07:15 Dose: Admin: 05/11/17 21:33 Dose: 9 unit Admin: 05/11/17 17:40 Dose: 15 unit Liraglutide (Victoza) 0 mg SUBCUT DAILY [facility] Last Admin: 05/12/17 09:09 Dose: 1.8 mg Losartan Potassium (Cozaar) 50 mg PO BID [facility] Last Admin: 05/12/17 09:08 Dose: 50 mg Admin: 05/11/17 21:09 Dose: 50 mg Metformin HCl (Glucophage) 1,000 mg PO BIDMEALS [facility] Last Admin: 05/12/17 09:03 Dose: 1,000 mg Admin: 05/11/17 17:45 Dose: 1,000 mg Metronidazole (Flagyl) 500 mg PO TID [facility] Last Admin: 05/12/17 09:05 Dose: 500 mg Admin: 05/11/17 21:10 Dose: 500 mg Omeprazole (Omeprazole) 20 mg PO DAILY [facility] Last Admin: 05/12/17 09:04 Dose: 20 mg Polyethylene Glycol (Miralax) 17 gm PO DAILY PRN PRN Reason: Constipation Potassium Chloride (Klor-Con 10) 10 meq PO BID [facility] Last Admin: 05/12/17 09:05 Dose: 10 meq Admin: 05/11/17 21:10 Dose: 10 meq Rosuvastatin Calcium (Crestor) 5 mg PO DAILY [facility] Last Admin: 05/12/17 09:06 Dose: 5 mg Sodium Chloride (Saline Flush) 10 ml FLUSH DAILY [facility] Assessment/Plan Comment:: HISTORY OF PRESENT ILLNESS This 56-year-old gentleman with long-standing diabetes mellitus is in swing bed status for wound VAC therapy due to a left diabetic foot ulcer. Patient underwent left foot irrigation and debridement with excision of nonviable soft tissue and bone with wound VAC placement by Dr. Barrow in [facility]. He currently has a PICC line in. He is to continue with Rocephin for 6 weeks along with oral Flagyl for anaerobic coverage per ID recommendations. Culture demonstrated strep. Patient had Zosyn and vancomycin previously. Patient has had history of MRSA, however current cultures did not grow MRSA. Patient had normal AB index. He had previously been placed in offloading boot however wound continued to increase in size and depth. He had a negative MRI for osteomyelitis CODE STATUS, full code PRIMARY DIAGNOSIS S/P irrigation and debridement, left infected diabetic foot ulcer; wound vac change every M//--too run on continuous 125 mmHg daily. Continue with PICC line IV antibiotics. Reinforced to patient NWB to left limb--will need continual reinforcement by all staff daily. Patient likely will need wound closure in future date. Will monitor inflammatory markers Diarrhea, noninfectious, Imodium when necessary. Probiotics Anemia, normocytic, normochromic, no anisocytosis, likely ACD (with chronic foot infection/inflammatory state--CRP 156) with concomittent renal erythropoietin synthesis reduction due to hx of renal disease. Seems to be improving. We'll monitor. No need for workup at this time DVT prophylaxis; although on aspirin--Moderate to High risk; Place on Fondaparinux 2.5mg SC daily, SECONDARY DIAGNOSIS --Diabetes mellitus, type 2--Lantus recently increased to 35 units twice a day along with sliding scale insulin. Important for tighter coverage for hospital healing. On GLP1-A, maximal metformin, --Hypertension, primary, on ARB--creatinine good, also on thiazide diuretic with potassium supplementation. Monitor for gout --History of MRSA, current cultures negative. No need to cover for MRSA at this time --Esophageal reflux, PPI. --Dyslipidemia, on low-dose statin --Depression, controlled on Lexapro. Recent psychotic episode --Obesity, morbid. Although has had some recent weight loss he is still approximately 100 pounds over IBW--approximately 350,000 excessive kilocalories. 500 less kilocalories intake per day would take patient approximate 700 days to reach IDBW. Will place patient on reduce caloric intake.
[2017-05-12] MEDS ORDERED: Sodium Chloride 0.9% 50 ML SDV FLUSH SCH (11:00)
[2017-05-12] MEDS ORDERED: Sodium Chloride 0.9% 10 ML Syringe FLUSH SCH (11:00)
[2017-05-12] MEDS: Enoxaparin 40 MG/0.4 ML Syringe SUBCUT SCH (11:09)
[2017-05-12] MEDS: B.Bifidum/B.Longum/L.Acidophilus/L.Rhamnosus (Probiotic) Cap PO SCH (11:10)
[2017-05-12] MEDS: cefTRIAXone 2 GM Vial IV SCH (11:11)
[2017-05-12] MEDS: Sodium Chloride 0.9% 50 ML SDV FLUSH SCH ×2 (19:06→21:31)
[2017-05-13] MEDS: Sodium Chloride 0.9% 50 ML SDV FLUSH SCH (06:34)
[2017-05-13] MEDS: Insulin Regular, Human 100 Units/ML 10 ML Vial SUBCUT SCH ×4 (07:40→21:29)
[2017-05-13] MEDS: metFORMIN 500 MG Tab PO SCH ×2 (07:44→17:28)
[2017-05-13] MEDS: Calcium Citrate/Vitamin D3 315 MG-250 Unit Tab PO SCH ×2 (07:44→17:28)
[2017-05-13] MEDS: Losartan 50 MG Tab PO SCH ×2 (08:22→21:27)
[2017-05-13] MEDS: Aspirin 325 MG Tab.EC PO SCH (08:23)
[2017-05-13] MEDS: Rosuvastatin 10 MG Tab PO SCH (08:23)
[2017-05-13] MEDS: metroNIDAZOLE 500 MG Tab PO SCH ×3 (08:24→21:27)
[2017-05-13] MEDS: Hydrochlorothiazide 25 MG Tab PO SCH (08:24)
[2017-05-13] MEDS: Potassium Chloride 10 MEQ Tab.ER PO SCH ×2 (08:24→21:28)
[2017-05-13] MEDS: Escitalopram 10 MG Tab PO SCH (08:25)
[2017-05-13] MEDS: Omeprazole 20 MG Cap.CR PO SCH (08:25)
[2017-05-13] MEDS: Acetaminophen 325 MG Tab PO SCH ×3 (08:32→21:29)
[2017-05-13] MEDS: B.Bifidum/B.Longum/L.Acidophilus/L.Rhamnosus (Probiotic) Cap PO SCH (08:32)
[2017-05-13] MEDS: Insulin Detemir 100 Units/ML 3 ML Pen SUBCUT SCH ×2 (08:33→21:28)
[2017-05-13] MEDS: Liraglutide (rDNA Origin) 0.6 MG/0.1 ML 3 ML Pen SUBCUT SCH (08:34)
[2017-05-13] MEDS: cefTRIAXone 2 GM Vial IV SCH (10:40)
[2017-05-13] MEDS: Enoxaparin 40 MG/0.4 ML Syringe SUBCUT SCH (10:40)
[2017-05-13] MEDS: Sodium Chloride 0.9% 10 ML Syringe FLUSH SCH (10:41)
[2017-05-14] MEDS: Insulin Regular, Human 100 Units/ML 10 ML Vial SUBCUT SCH ×4 (08:24→20:34)
[2017-05-14] MEDS: metFORMIN 500 MG Tab PO SCH ×2 (08:25→18:08)
[2017-05-14] MEDS: Calcium Citrate/Vitamin D3 315 MG-250 Unit Tab PO SCH ×2 (08:25→18:08)
[2017-05-14] MEDS: Losartan 50 MG Tab PO SCH ×2 (08:25→20:31)
[2017-05-14] MEDS: Potassium Chloride 10 MEQ Tab.ER PO SCH ×2 (08:26→20:32)
[2017-05-14] MEDS: Aspirin 325 MG Tab.EC PO SCH (08:26)
[2017-05-14] MEDS: Rosuvastatin 10 MG Tab PO SCH (08:26)
[2017-05-14] MEDS: metroNIDAZOLE 500 MG Tab PO SCH ×3 (08:26→20:32)
[2017-05-14] MEDS: Hydrochlorothiazide 25 MG Tab PO SCH (08:26)
[2017-05-14] MEDS: Insulin Detemir 100 Units/ML 3 ML Pen SUBCUT SCH ×2 (08:27→20:32)
[2017-05-14] MEDS: Omeprazole 20 MG Cap.CR PO SCH (08:27)
[2017-05-14] MEDS: Escitalopram 10 MG Tab PO SCH (08:27)
[2017-05-14] MEDS: Liraglutide (rDNA Origin) 0.6 MG/0.1 ML 3 ML Pen SUBCUT SCH (08:28)
[2017-05-14] MEDS: B.Bifidum/B.Longum/L.Acidophilus/L.Rhamnosus (Probiotic) Cap PO SCH (08:30)
[2017-05-14] MEDS: Acetaminophen 325 MG Tab PO SCH ×3 (08:30→20:32)
[2017-05-14] MEDS: Sodium Chloride 0.9% 10 ML Syringe FLUSH SCH (09:00)
[2017-05-14] MEDS: Multivitamins with Minerals/Iron/Folic Acid/Lycopene Tab PO SCH (11:18)
[2017-05-14] MEDS: Zinc (Zinc Gluconate) 50 MG Tab PO SCH (11:18)
[2017-05-14] MEDS: cefTRIAXone 2 GM Vial IV SCH (11:18)
[2017-05-14] MEDS: Enoxaparin 40 MG/0.4 ML Syringe SUBCUT SCH (11:18)
[2017-05-15] MEDS: Insulin Regular, Human 100 Units/ML 10 ML Vial SUBCUT SCH ×4 (07:13→20:50)
[2017-05-15] MEDS: Acetaminophen 325 MG Tab PO SCH ×3 (08:01→20:56)
[2017-05-15] MEDS: B.Bifidum/B.Longum/L.Acidophilus/L.Rhamnosus (Probiotic) Cap PO SCH (08:02)
[2017-05-15] MEDS: Zinc (Zinc Gluconate) 50 MG Tab PO SCH (08:02)
[2017-05-15] MEDS: metFORMIN 500 MG Tab PO SCH ×2 (08:02→17:51)
[2017-05-15] MEDS: Calcium Citrate/Vitamin D3 315 MG-250 Unit Tab PO SCH ×2 (08:03→17:51)
[2017-05-15] MEDS: Escitalopram 10 MG Tab PO SCH (08:03)
[2017-05-15] MEDS: Potassium Chloride 10 MEQ Tab.ER PO SCH ×2 (08:03→20:53)
[2017-05-15] MEDS: Multivitamins with Minerals/Iron/Folic Acid/Lycopene Tab PO SCH (08:03)
[2017-05-15] MEDS: Rosuvastatin 10 MG Tab PO SCH (08:03)
[2017-05-15] MEDS: Aspirin 325 MG Tab.EC PO SCH (08:03)
[2017-05-15] MEDS: Omeprazole 20 MG Cap.CR PO SCH (08:03)
[2017-05-15] MEDS: metroNIDAZOLE 500 MG Tab PO SCH ×3 (08:06→20:54)
[2017-05-15] MEDS: Losartan 50 MG Tab PO SCH ×2 (08:06→20:53)
[2017-05-15] MEDS: Hydrochlorothiazide 25 MG Tab PO SCH (08:06)
[2017-05-15] MEDS: Insulin Detemir 100 Units/ML 3 ML Pen SUBCUT SCH ×2 (08:07→20:54)
[2017-05-15] MEDS: Liraglutide (rDNA Origin) 0.6 MG/0.1 ML 3 ML Pen SUBCUT SCH (08:09)
[2017-05-15] MEDS ORDERED: Sodium Chloride 0.9% 10 ML Syringe FLUSH SCH (11:00)
[2017-05-15] MEDS: Enoxaparin 40 MG/0.4 ML Syringe SUBCUT SCH (11:24)
[2017-05-15] MEDS: Sodium Chloride 0.9% 10 ML Syringe FLUSH SCH ×3 (12:16→23:21)
[2017-05-15] MEDS: Vancomycin 2 GM in Sodium Chloride 0.9% 500 ML IV SCH ×2 (12:17→23:21)
[2017-05-15] MEDS: Sodium Chloride 0.9% 250 ML IV SCH (12:21)
[2017-05-15] MEDS: cefTRIAXone 2 GM Vial IV SCH (13:29)
[2017-05-16] MEDS: Sodium Chloride 0.9% 10 ML Syringe FLUSH SCH ×3 (02:52→17:48)
[2017-05-16] MEDS: Insulin Regular, Human 100 Units/ML 10 ML Vial SUBCUT SCH ×4 (07:09→21:50)
[2017-05-16] MEDS: Calcium Citrate/Vitamin D3 315 MG-250 Unit Tab PO SCH ×2 (08:08→17:51)
[2017-05-16] MEDS: metFORMIN 500 MG Tab PO SCH ×2 (08:08→17:50)
[2017-05-16] MEDS: metroNIDAZOLE 500 MG Tab PO SCH ×3 (08:09→21:40)
[2017-05-16] MEDS: Multivitamins with Minerals/Iron/Folic Acid/Lycopene Tab PO SCH (08:09)
[2017-05-16] MEDS: Rosuvastatin 10 MG Tab PO SCH (08:09)
[2017-05-16] MEDS: Aspirin 325 MG Tab.EC PO SCH (08:09)
[2017-05-16] MEDS: B.Bifidum/B.Longum/L.Acidophilus/L.Rhamnosus (Probiotic) Cap PO SCH (08:10)
[2017-05-16] MEDS: Potassium Chloride 10 MEQ Tab.ER PO SCH ×2 (08:10→21:40)
[2017-05-16] MEDS: Acetaminophen 325 MG Tab PO SCH ×3 (08:10→21:40)
[2017-05-16] MEDS: Omeprazole 20 MG Cap.CR PO SCH (08:10)
[2017-05-16] MEDS: Hydrochlorothiazide 25 MG Tab PO SCH (08:11)
[2017-05-16] MEDS: Escitalopram 10 MG Tab PO SCH (08:11)
[2017-05-16] MEDS: Zinc (Zinc Gluconate) 50 MG Tab PO SCH (08:11)
[2017-05-16] MEDS: Losartan 50 MG Tab PO SCH ×2 (08:11→21:39)
[2017-05-16] MEDS: Insulin Detemir 100 Units/ML 3 ML Pen SUBCUT SCH ×2 (08:12→21:41)
[2017-05-16] MEDS: Liraglutide (rDNA Origin) 0.6 MG/0.1 ML 3 ML Pen SUBCUT SCH (08:13)
--- NOTE | 2017-05-16 09:11 | PCM.PN ---
- General Info Date of Service: 05/16/17 Functional Status: Reports: Pain Controlled, Tolerating Diet. Denies: Ambulating (Non-weightbearing to the affected limb) - Review of Systems General: Denies: Fever, Weakness, Fatigue HEENT: Reports: No Symptoms Pulmonary: Reports: No Symptoms Cardiovascular: Reports: No Symptoms Gastrointestinal: Reports: No Symptoms Genitourinary: Reports: No Symptoms Musculoskeletal: Reports: No Symptoms Skin: Reports: Other Neurological: Reports: Pre-Existing Deficit Psychiatric: Reports: No Symptoms - Patient Data Vitals - Most Recent: Last Vital Signs Temp 96.3 F 05/16/17 06:40 Pulse 93 05/16/17 06:40 Resp 18 05/16/17 06:40 BP 122/78 05/16/17 08:11 Pulse Ox 94 L 05/16/17 06:40 Weight - Most Recent: 285 lb 8 oz I&O - Last 24 Hours: Intake & Output 05/15/17 05/16/17 05/16/17 22:59 06:59 14:59 Intake Total 600 1330 Output Total 525 1850 Balance 75 -520 Lab Results Last 24 Hours: Laboratory Results - last 24 hr 05/15/17 05/15/17 05/15/17 Range/Units 11:22 17:26 20:49 POC Glucose 167 H 134 H 133 H (74-106) mg/dl [facility] Results Last 24 Hours: Microbiology 05/14/17 09:35 Wound Culture - Final Foot, Left NO GROWTH AFTER 2 DAYS Med Orders - Current: Current Medications Acetaminophen (Tylenol) 650 mg PO TID [facility] Last Admin: 05/16/17 08:10 Dose: 650 mg Aspirin (Ecotrin) 325 mg PO DAILY [facility] Last Admin: 05/16/17 08:09 Dose: 325 mg Calcium Citrate (Calcium Citrate + D) 2 tab PO BIDMEALS [facility] Last Admin: 05/16/17 08:08 Dose: 2 tab Enoxaparin Sodium (Lovenox) 40 mg SUBCUT 1100 [facility] Last Admin: 05/15/17 11:24 Dose: 40 mg Escitalopram Oxalate (Lexapro) 10 mg PO DAILY [facility] Last Admin: 05/16/17 08:11 Dose: 10 mg Hydrochlorothiazide (Hydrochlorothiazide) 25 mg PO DAILY [facility] Last Admin: 05/16/17 08:11 Dose: 25 mg Vancomycin HCl 2 gm/ Sodium (Chloride) 540 mls @ 170 mls/hr IV Q12H [facility] Last Admin: 05/15/17 23:21 Dose: 170 mls/hr Sodium Chloride (Normal Saline) 250 mls @ 20 mls/hr IV DAILY@1200 [facility] Last Admin: 05/15/17 12:21 Dose: 20 mls/hr Insulin Detemir (Levemir) 0 unit SUBCUT BID [facility] Last Admin: 05/16/17 08:12 Dose: 33 units Insulin Human Regular (Novolin R) 0 unit SUBCUT 0730,1200,1800,2100 [facility] PRN Reason: Protocol Last Admin: 05/16/17 07:09 Dose: Not Given Lactobacillus Acidophilus/Rhamnosus (Multi-Lina Plus) 1 cap PO DAILY [facility] Last Admin: 05/16/17 08:10 Dose: 1 cap Liraglutide (Victoza) 0 mg SUBCUT DAILY [facility] Last Admin: 05/16/17 08:13 Dose: 1.8 mg Loperamide HCl (Imodium) 2 mg PO Q6H PRN PRN Reason: Diarrhea Losartan Potassium (Cozaar) 50 mg PO BID [facility] Last Admin: 05/16/17 08:11 Dose: 50 mg Metformin HCl (Glucophage) 1,000 mg PO BIDMEALS [facility] Last Admin: 05/16/17 08:08 Dose: 1,000 mg Metronidazole (Flagyl) 500 mg PO TID [facility] Last Admin: 05/16/17 08:09 Dose: 500 mg Multivitamins/Minerals (Centrum) 1 tab PO DAILY [facility] Last Admin: 05/16/17 08:09 Dose: 1 tab Omeprazole (Omeprazole) 20 mg PO DAILY [facility] Last Admin: 05/16/17 08:10 Dose: 20 mg Polyethylene Glycol (Miralax) 17 gm PO DAILY PRN PRN Reason: Constipation Potassium Chloride (Klor-Con 10) 10 meq PO BID [facility] Last Admin: 05/16/17 08:10 Dose: 10 meq Rosuvastatin Calcium (Crestor) 5 mg PO DAILY [facility] Last Admin: 05/16/17 08:09 Dose: 5 mg Sodium Chloride (Saline Flush) 10 ml FLUSH 0000,0200,1200,1400 [facility] Last Admin: 05/16/17 02:52 Dose: 10 ml Vancomycin HCl (Pharmacy To Dose - Vancomycin) 1 dose .XX ASDIRECTED [facility] Zinc Gluconate (Zinc) 50 mg PO DAILY [facility] Last Admin: 05/16/17 08:11 Dose: 50 mg Discontinued Medications Ceftriaxone Sodium (Rocephin) 2 gm IV Q24H [facility] Last Admin: 05/11/17 16:59 Dose: Not Given Ceftriaxone Sodium (Rocephin) 2 gm IV Q24H [facility] Last Admin: 05/15/17 13:29 Dose: Not Given Enoxaparin Sodium (Lovenox) 40 mg SUBCUT Q24H [facility] Last Admin: 05/14/17 11:18 Dose: 40 mg Fondaparinux (Arixtra) 2.5 mg SUBCUT Q24H [facility] Last Admin: 05/12/17 10:53 Dose: Not Given Insulin Human Regular (Novolin R) 0 unit SUBCUT QIDACANDBED [facility] PRN Reason: Protocol Last Admin: 05/14/17 17:26 Dose: Not Given Sodium Chloride (Saline Flush) 10 ml FLUSH DAILY [facility] Last Admin: 05/12/17 11:23 Dose: 10 ml Sodium Chloride (Normal Saline) 10 ml FLUSH Q24H [facility] Last Admin: 05/12/17 11:10 Dose: 10 ml Sodium Chloride (Normal Saline) 10 ml FLUSH Q8HR [facility] Last Admin: 05/13/17 06:34 Dose: 10 ml Sodium Chloride (Saline Flush) 10 ml FLUSH DAILY [facility] Last Admin: 05/14/17 09:00 Dose: 10 ml Sodium Chloride (Saline Flush) 10 ml FLUSH 1100 [facility] Last Admin: 05/15/17 13:29 Dose: Not Given - Exam Quality Assessment: No: Supplemental Oxygen General: Alert, Oriented Neck: Supple Lungs: Clear to Auscultation, Normal Respiratory Effort Cardiovascular: Regular Rate, Regular Rhythm GI/Abdominal Exam: Normal Bowel Sounds, Soft, Non-Tender, No Organomegaly, No Distention, No Abnormal Bruit, No Mass, Pelvis Stable Back Exam: No: CVA Tenderness (L), CVA Tenderness (R) Extremities: No: No Pedal Edema, Leg Pain, Increased Warmth Skin: Other (Wound VAC--draining well--good seal--left foot-- plantar) Wound/Incisions: Drainage (Drainage through wound VAC). No: Erythema Psy/Mental Status: Alert, Normal Affect, Normal Mood - Problem List Review Problem List Initiated/Reviewed/Updated: Yes - My Orders Last 24 Hours: My Active Orders 05/15/17 11:15 Vancomycin Pharmacy to Dose [Pharmacy to Dose - Vancomycin] 1 dose .XX ASDIRECTED 05/15/17 11:59 Vancomycin 2 gm Sodium Chloride 0.9% [Normal Saline] 500 ml IV Q12H 05/15/17 13:42 Communication Order [RC] DAILY 05/15/17 14:13 Communication Order [RC] DAILY 05/18/17 06:00 ALANINE AMINOTRANSFERASE,ALT [CHEM] WEEKLY CBC WITH AUTO DIFF [HEME] WEEKLY 05/24/17 06:00 CRP [C-REACTIVE PROTEIN] [CHEM] Routine SEDIMENTATION RATE MANUAL [HEME] Routine 05/25/17 06:00 ALANINE AMINOTRANSFERASE,ALT [CHEM] WEEKLY CBC WITH AUTO DIFF [HEME] WEEKLY CREATININE W/GFR [CHEM] WEEKLY 06/01/17 06:00 ALANINE AMINOTRANSFERASE,ALT [CHEM] WEEKLY CBC WITH AUTO DIFF [HEME] WEEKLY CREATININE W/GFR [CHEM] WEEKLY 06/07/17 06:00 CRP [C-REACTIVE PROTEIN] [CHEM] Routine SEDIMENTATION RATE MANUAL [HEME] Routine 06/08/17 06:00 ALANINE AMINOTRANSFERASE,ALT [CHEM] WEEKLY CBC WITH AUTO DIFF [HEME] WEEKLY CREATININE W/GFR [CHEM] WEEKLY - Plan Plan:: HISTORY OF PRESENT ILLNESS This 56-year-old gentleman with long-standing diabetes mellitus is in swing bed status for wound VAC therapy due to a left diabetic foot ulcer. Patient underwent left foot irrigation and debridement with excision of nonviable soft tissue and bone with wound VAC placement by Dr. Barrow in [facility]. He currently has a PICC line in. He is to continue with Rocephin for 6 weeks along with oral Flagyl for anaerobic coverage per ID recommendations. Culture demonstrated strep. Patient had Zosyn and vancomycin previously. Patient has had history of MRSA, however current cultures did not grow MRSA. Patient had normal AB index. He had previously been placed in offloading boot however wound continued to increase in size and depth. He had a negative MRI for osteomyelitis CODE STATUS, full code update: Antibiotics changed to vancomycin. PRIMARY DIAGNOSIS S/P irrigation and debridement, left infected diabetic foot ulcer; wound vac change every M/W/--too run on continuous 125 mmHg daily. Continue with PICC line IV antibiotics. Reinforced to patient NWB to left limb--will need continual reinforcement by all staff daily. Patient likely will need wound closure in future date. Will monitor inflammatory markers. Add multivitamin and zinc Diarrhea, noninfectious, Imodium when necessary. Probiotics Anemia, normocytic, normochromic, no anisocytosis, likely ACD (with chronic foot infection/inflammatory state--CRP 156) with concomittent renal erythropoietin synthesis reduction due to hx of renal disease. Seems to be improving. We'll monitor. No need for workup at this time DVT prophylaxis; although on aspirin--Moderate to High risk; placed on LMWH SECONDARY DIAGNOSIS --Diabetes mellitus, type 2--Lantus recently increased to 35 units twice a day along with sliding scale insulin. Important for tighter coverage for hospital healing. On GLP1-A, maximal metformin, --Hypertension, primary, on ARB--creatinine good, also on thiazide diuretic with potassium supplementation. Monitor for gout --History of MRSA, current cultures negative. No need to cover for MRSA at this time --Esophageal reflux, PPI. --Dyslipidemia, on low-dose statin --Depression, controlled on Lexapro. Recent psychotic episode--stable --Obesity, morbid. Although has had some recent weight loss he is still approximately 100 pounds over IBW--approximately 350,000 excessive kilocalories. 500 less kilocalories intake per day would take patient approximate 700 days to reach IDBW. Will place patient on reduce caloric intake. Add multivitamin and zinc
[2017-05-16] MEDS: Enoxaparin 40 MG/0.4 ML Syringe SUBCUT SCH (11:51)
[2017-05-16] MEDS: Sodium Chloride 0.9% 250 ML IV SCH (11:52)
[2017-05-16] MEDS: Vancomycin 2 GM in Sodium Chloride 0.9% 500 ML IV SCH (11:52)
[2017-05-16] MEDS: Loperamide 2 MG Cap PO PRN (19:29)
[2017-05-17] MEDS: Sodium Chloride 0.9% 10 ML Syringe FLUSH SCH ×5 (00:30→23:13)
[2017-05-17] MEDS: Vancomycin 2 GM in Sodium Chloride 0.9% 500 ML IV SCH ×2 (01:21→12:53)
[2017-05-17] MEDS: Loperamide 2 MG Cap PO PRN (06:33)
[2017-05-17] MEDS: Insulin Regular, Human 100 Units/ML 10 ML Vial SUBCUT SCH ×4 (07:04→20:34)
[2017-05-17] MEDS: Calcium Citrate/Vitamin D3 315 MG-250 Unit Tab PO SCH ×2 (08:11→17:42)
[2017-05-17] MEDS: metFORMIN 500 MG Tab PO SCH ×2 (08:12→17:41)
[2017-05-17] MEDS: Multivitamins with Minerals/Iron/Folic Acid/Lycopene Tab PO SCH (08:12)
[2017-05-17] MEDS: Rosuvastatin 10 MG Tab PO SCH (08:12)
[2017-05-17] MEDS: Losartan 50 MG Tab PO SCH ×2 (08:12→20:39)
[2017-05-17] MEDS: B.Bifidum/B.Longum/L.Acidophilus/L.Rhamnosus (Probiotic) Cap PO SCH (08:13)
[2017-05-17] MEDS: Potassium Chloride 10 MEQ Tab.ER PO SCH ×2 (08:13→20:40)
[2017-05-17] MEDS: Hydrochlorothiazide 25 MG Tab PO SCH (08:13)
[2017-05-17] MEDS: Escitalopram 10 MG Tab PO SCH (08:13)
[2017-05-17] MEDS: Aspirin 325 MG Tab.EC PO SCH (08:13)
[2017-05-17] MEDS: metroNIDAZOLE 500 MG Tab PO SCH ×3 (08:13→20:39)
[2017-05-17] MEDS: Zinc (Zinc Gluconate) 50 MG Tab PO SCH (08:14)
[2017-05-17] MEDS: Omeprazole 20 MG Cap.CR PO SCH (08:14)
[2017-05-17] MEDS: Acetaminophen 325 MG Tab PO SCH ×3 (08:14→20:42)
[2017-05-17] MEDS: Insulin Detemir 100 Units/ML 3 ML Pen SUBCUT SCH ×2 (08:18→20:40)
[2017-05-17] MEDS: Liraglutide (rDNA Origin) 0.6 MG/0.1 ML 3 ML Pen SUBCUT SCH (08:23)
[2017-05-17] MEDS: Nystatin Topical Powder 15 GM Bottle TOP SCH ×2 (10:27→20:41)
[2017-05-17] MEDS: Enoxaparin 40 MG/0.4 ML Syringe SUBCUT SCH (10:28)
[2017-05-17] MEDS: Sodium Chloride 0.9% 250 ML IV SCH ×2 (12:54→18:33)
[2017-05-18] MEDS: Loperamide 2 MG Cap PO PRN (06:13)
[2017-05-18] MEDS: Sodium Chloride 0.9% 10 ML Syringe FLUSH SCH ×4 (06:14→21:43)
[2017-05-18] MEDS: Calcium Citrate/Vitamin D3 315 MG-250 Unit Tab PO SCH ×2 (08:21→18:21)
[2017-05-18] MEDS: metFORMIN 500 MG Tab PO SCH ×2 (08:21→18:21)
[2017-05-18] MEDS: Rosuvastatin 10 MG Tab PO SCH (08:22)
[2017-05-18] MEDS: Aspirin 325 MG Tab.EC PO SCH (08:22)
[2017-05-18] MEDS: Losartan 50 MG Tab PO SCH ×2 (08:22→20:41)
[2017-05-18] MEDS: metroNIDAZOLE 500 MG Tab PO SCH ×3 (08:22→20:41)
[2017-05-18] MEDS: Multivitamins with Minerals/Iron/Folic Acid/Lycopene Tab PO SCH (08:22)
[2017-05-18] MEDS: Escitalopram 10 MG Tab PO SCH (08:23)
[2017-05-18] MEDS: Omeprazole 20 MG Cap.CR PO SCH (08:23)
[2017-05-18] MEDS: B.Bifidum/B.Longum/L.Acidophilus/L.Rhamnosus (Probiotic) Cap PO SCH (08:23)
[2017-05-18] MEDS: Potassium Chloride 10 MEQ Tab.ER PO SCH ×2 (08:23→20:41)
[2017-05-18] MEDS: Zinc (Zinc Gluconate) 50 MG Tab PO SCH (08:23)
[2017-05-18] MEDS: Hydrochlorothiazide 25 MG Tab PO SCH (08:23)
[2017-05-18] MEDS: Acetaminophen 325 MG Tab PO SCH ×3 (08:25→20:44)
[2017-05-18] MEDS: Nystatin Topical Powder 15 GM Bottle TOP SCH ×2 (08:25→20:41)
[2017-05-18] MEDS: Liraglutide (rDNA Origin) 0.6 MG/0.1 ML 3 ML Pen SUBCUT SCH (08:25)
[2017-05-18] MEDS: Insulin Regular, Human 100 Units/ML 10 ML Vial SUBCUT SCH ×4 (08:25→20:43)
[2017-05-18] MEDS: Insulin Detemir 100 Units/ML 3 ML Pen SUBCUT SCH ×2 (08:26→20:42)
[2017-05-18] MEDS: Enoxaparin 40 MG/0.4 ML Syringe SUBCUT SCH (10:53)
[2017-05-18] MEDS: Sodium Chloride 0.9% 250 ML IV SCH (18:29)
[2017-05-19] MEDS: Insulin Regular, Human 100 Units/ML 10 ML Vial SUBCUT SCH ×4 (08:16→20:51)
[2017-05-19] MEDS: Sodium Chloride 0.9% 10 ML Syringe FLUSH SCH ×2 (08:16→09:38)
[2017-05-19] MEDS: Multivitamins with Minerals/Iron/Folic Acid/Lycopene Tab PO SCH (08:17)
[2017-05-19] MEDS: metFORMIN 500 MG Tab PO SCH ×2 (08:17→17:35)
[2017-05-19] MEDS: Calcium Citrate/Vitamin D3 315 MG-250 Unit Tab PO SCH ×2 (08:17→17:34)
[2017-05-19] MEDS: Losartan 50 MG Tab PO SCH ×2 (08:17→20:50)
[2017-05-19] MEDS: metroNIDAZOLE 500 MG Tab PO SCH ×3 (08:18→20:50)
[2017-05-19] MEDS: Rosuvastatin 10 MG Tab PO SCH (08:18)
[2017-05-19] MEDS: Hydrochlorothiazide 25 MG Tab PO SCH (08:18)
[2017-05-19] MEDS: Aspirin 325 MG Tab.EC PO SCH (08:18)
[2017-05-19] MEDS: Nystatin Topical Powder 15 GM Bottle TOP SCH ×2 (08:19→20:51)
[2017-05-19] MEDS: B.Bifidum/B.Longum/L.Acidophilus/L.Rhamnosus (Probiotic) Cap PO SCH (08:19)
[2017-05-19] MEDS: Escitalopram 10 MG Tab PO SCH (08:19)
[2017-05-19] MEDS: Insulin Detemir 100 Units/ML 3 ML Pen SUBCUT SCH ×2 (08:19→20:49)
[2017-05-19] MEDS: Potassium Chloride 10 MEQ Tab.ER PO SCH ×2 (08:19→20:50)
[2017-05-19] MEDS: Zinc (Zinc Gluconate) 50 MG Tab PO SCH (08:20)
[2017-05-19] MEDS: Omeprazole 20 MG Cap.CR PO SCH (08:20)
[2017-05-19] MEDS: Acetaminophen 325 MG Tab PO SCH ×3 (08:20→20:49)
[2017-05-19] MEDS: Liraglutide (rDNA Origin) 0.6 MG/0.1 ML 3 ML Pen SUBCUT SCH (08:20)
[2017-05-19] MEDS ORDERED: Famotidine 20 MG Tab PO ONE (08:58)
[2017-05-19] MEDS ORDERED: diphenhydrAMINE 25 MG Cap PO ONE ×2 (08:58→21:08)
--- NOTE | 2017-05-19 09:03 | PCM.SN ---
- Free Text/Narrative Note: S: Nursing staff reports patient has a rash to his torso and back that developed yesterday, but worsened today. Patient reports the rash is itchy, but he denies shortness of breath. Patient did have vancomycin added in the last couple days, however trough was high this morning so dose is being held. O: Diffuse macular rash noted to torso, back and buttocks. Respirations within normal limits. No respiratory distress noted. A: Rash, question drug-induced. P: Vancomycin on hold due to elevated trough. Will give pepcid 20 mg po and benadryl 25 mg po x 1 now. Will trial vancomycin again when due and see if rash reappears.
[2017-05-19] MEDS: Enoxaparin 40 MG/0.4 ML Syringe SUBCUT SCH ×2 (09:39→15:24)
[2017-05-19] MEDS ORDERED: Sodium Chloride 0.9% 250 ML IV SCH (18:15)
[2017-05-19] MEDS ORDERED: diphenhydrAMINE 12.5 MG/5 ML Liquid 120 ML Bottle PO ONE (21:02)
[2017-05-19] MEDS ORDERED: Sodium Chloride 0.9% 500 ML IV SCH (21:15)
[2017-05-20] MEDS: Insulin Regular, Human 100 Units/ML 10 ML Vial SUBCUT SCH ×4 (07:48→21:00)
[2017-05-20] MEDS: metFORMIN 500 MG Tab PO SCH ×2 (08:10→17:52)
[2017-05-20] MEDS: Losartan 50 MG Tab PO SCH ×2 (08:10→20:55)
[2017-05-20] MEDS: Multivitamins with Minerals/Iron/Folic Acid/Lycopene Tab PO SCH (08:10)
[2017-05-20] MEDS: Calcium Citrate/Vitamin D3 315 MG-250 Unit Tab PO SCH ×2 (08:10→17:51)
[2017-05-20] MEDS: metroNIDAZOLE 500 MG Tab PO SCH ×3 (08:11→20:55)
[2017-05-20] MEDS: Hydrochlorothiazide 25 MG Tab PO SCH (08:11)
[2017-05-20] MEDS: Rosuvastatin 10 MG Tab PO SCH (08:11)
[2017-05-20] MEDS: Aspirin 325 MG Tab.EC PO SCH (08:11)
[2017-05-20] MEDS: Potassium Chloride 10 MEQ Tab.ER PO SCH ×2 (08:11→20:55)
[2017-05-20] MEDS: Acetaminophen 325 MG Tab PO SCH ×3 (08:12→21:01)
[2017-05-20] MEDS: Insulin Detemir 100 Units/ML 3 ML Pen SUBCUT SCH ×2 (08:12→20:56)
[2017-05-20] MEDS: Escitalopram 10 MG Tab PO SCH (08:12)
[2017-05-20] MEDS: Nystatin Topical Powder 15 GM Bottle TOP SCH ×2 (08:12→21:01)
[2017-05-20] MEDS: Omeprazole 20 MG Cap.CR PO SCH (08:12)
[2017-05-20] MEDS: B.Bifidum/B.Longum/L.Acidophilus/L.Rhamnosus (Probiotic) Cap PO SCH (08:12)
[2017-05-20] MEDS: Zinc (Zinc Gluconate) 50 MG Tab PO SCH (08:12)
[2017-05-20] MEDS: Liraglutide (rDNA Origin) 0.6 MG/0.1 ML 3 ML Pen SUBCUT SCH (08:13)
[2017-05-20] MEDS ORDERED: predniSONE 20 MG Tab PO ONE (09:16)
--- NOTE | 2017-05-20 09:42 | PCM.PN ---
- General Info Date of Service: 05/20/17 Functional Status: Reports: Pain Controlled, Tolerating Diet, Ambulating, Urinating - Review of Systems General: Denies: Fever, Chills HEENT: Denies: Headaches, Sore Throat Pulmonary: Denies: Shortness of Breath Cardiovascular: Denies: Chest Pain Gastrointestinal: Denies: Difficulty Swallowing Skin: Reports: Rash (itchy) Systems Review Comment:: Nursing reports that the rash has worsened overnight. The patient's vancomycin was held yesterday due to an elevated trough. The rash is at the neck, back, buttocks, torso, groin, and axilla. There was no reported improvement with the pepcid, saline bolus, and benadryl given yesterday. Nursing reports the only other new agent besides the vancomycin is that he started wearing his own clothes a couple days ago which were washed in house instead of by [employer]. - Patient Data Vitals - Most Recent: Last Vital Signs Temp 98.1 F 05/20/17 05:05 Pulse 90 05/20/17 05:05 Resp 18 05/20/17 05:05 BP 112/71 05/20/17 08:10 Pulse Ox 93 L 05/20/17 05:05 Weight - Most Recent: 286 lb 9.6 oz I&O - Last 24 Hours: Intake & Output 05/19/17 05/20/17 05/20/17 22:59 06:59 14:59 Intake Total 980 150 Output Total 700 200 Balance 280 -50 Lab Results Last 24 Hours: Laboratory Results - last 24 hr 05/19/17 05/19/17 05/19/17 Range/Units 11:48 17:31 20:46 POC Glucose 168 H 109 H 163 H (74-106) mg/dl Vancomycin Trough (10-20) ug/mL 05/20/17 05/20/17 Range/Units 06:10 06:15 POC Glucose 78 (74-106) mg/dl Vancomycin Trough 10.0 (10-20) ug/mL Med Orders - Current: Current Medications Acetaminophen (Tylenol) 650 mg PO TID [facility] Last Admin: 05/20/17 08:12 Dose: 650 mg Aspirin (Ecotrin) 325 mg PO DAILY [facility] Last Admin: 05/20/17 08:11 Dose: 325 mg Calcium Citrate (Calcium Citrate + D) 2 tab PO BIDMEALS [facility] Last Admin: 05/20/17 08:10 Dose: 2 tab Cetirizine HCl (Zyrtec) 10 mg PO DAILY [facility] Enoxaparin Sodium (Lovenox) 40 mg SUBCUT 1100 [facility] Last Admin: 05/19/17 15:24 Dose: Not Given Escitalopram Oxalate (Lexapro) 10 mg PO DAILY [facility] Last Admin: 05/20/17 08:12 Dose: 10 mg Famotidine (Pepcid) 20 mg PO BID [facility] Hydrochlorothiazide (Hydrochlorothiazide) 25 mg PO DAILY [facility] Last Admin: 05/20/17 08:11 Dose: 25 mg Vancomycin HCl 1.75 gm/ Sodium (Chloride) 250 mls @ 100 mls/hr IV Q24H [facility] Sodium Chloride (Normal Saline) 250 mls @ 50 mls/hr IV 0700 [facility] Sodium Chloride (Normal Saline) 500 mls @ 999 mls/hr IV .BOLUS [facility] Last Admin: 05/19/17 21:21 Dose: 999 mls/hr Insulin Detemir (Levemir) 0 unit SUBCUT BID [facility] Last Admin: 05/20/17 08:12 Dose: 33 units Insulin Human Regular (Novolin R) 0 unit SUBCUT 0730,1200,1800,2100 [facility] PRN Reason: Protocol Last Admin: 05/20/17 07:48 Dose: Not Given Lactobacillus Acidophilus/Rhamnosus (Multi-Lina Plus) 1 cap PO DAILY [facility] Last Admin: 05/20/17 08:12 Dose: 1 cap Liraglutide (Victoza) 0 mg SUBCUT DAILY [facility] Last Admin: 05/20/17 08:13 Dose: 1.8 mg Loperamide HCl (Imodium) 2 mg PO Q6H PRN PRN Reason: Diarrhea Last Admin: 05/18/17 06:13 Dose: 2 mg Losartan Potassium (Cozaar) 50 mg PO BID [facility] Last Admin: 05/20/17 08:10 Dose: 50 mg Metformin HCl (Glucophage) 1,000 mg PO BIDMEALS [facility] Last Admin: 05/20/17 08:10 Dose: 1,000 mg Metronidazole (Flagyl) 500 mg PO TID [facility] Last Admin: 05/20/17 08:11 Dose: 500 mg Multivitamins/Minerals (Centrum) 1 tab PO DAILY [facility] Last Admin: 05/20/17 08:10 Dose: 1 tab Nystatin (Nystop) 0 gm TOP BID [facility] Last Admin: 05/20/17 08:12 Dose: 1 applic Omeprazole (Omeprazole) 20 mg PO DAILY [facility] Last Admin: 05/20/17 08:12 Dose: 20 mg Polyethylene Glycol (Miralax) 17 gm PO DAILY PRN PRN Reason: Constipation Potassium Chloride (Klor-Con 10) 10 meq PO BID [facility] Last Admin: 05/20/17 08:11 Dose: 10 meq Rosuvastatin Calcium (Crestor) 5 mg PO DAILY [facility] Last Admin: 05/20/17 08:11 Dose: 5 mg Sodium Chloride (Normal Saline) 10 ml FLUSH 0700,1000 [facility] Vancomycin HCl (Pharmacy To Dose - Vancomycin) 1 dose .XX ASDIRECTED [facility] Zinc Gluconate (Zinc) 50 mg PO DAILY [facility] Last Admin: 05/20/17 08:12 Dose: 50 mg Discontinued Medications Ceftriaxone Sodium (Rocephin) 2 gm IV Q24H [facility] Last Admin: 05/11/17 16:59 Dose: Not Given Ceftriaxone Sodium (Rocephin) 2 gm IV Q24H [facility] Last Admin: 05/15/17 13:29 Dose: Not Given Diphenhydramine HCl (Benadryl) 25 mg PO ONETIME ONE Stop: 05/19/17 08:59 Last Admin: 05/19/17 09:39 Dose: 25 mg Diphenhydramine HCl (Benadryl) 50 mg PO ONETIME ONE Stop: 05/19/17 21:09 Last Admin: 05/19/17 21:21 Dose: 50 mg Enoxaparin Sodium (Lovenox) 40 mg SUBCUT Q24H [facility] Last Admin: 05/14/17 11:18 Dose: 40 mg Famotidine (Pepcid) 20 mg PO ONETIME ONE Stop: 05/19/17 08:59 Last Admin: 05/19/17 09:38 Dose: 20 mg Fondaparinux (Arixtra) 2.5 mg SUBCUT Q24H [facility] Last Admin: 05/12/17 10:53 Dose: Not Given Vancomycin HCl 2 gm/ Sodium (Chloride) 540 mls @ 170 mls/hr IV Q12H [facility] Last Admin: 05/17/17 12:53 Dose: Not Given Sodium Chloride (Normal Saline) 250 mls @ 20 mls/hr IV DAILY@1200 [facility] Last Admin: 05/17/17 12:54 Dose: Not Given Vancomycin HCl 1.75 gm/ Sodium (Chloride) 285 mls @ 103 mls/hr IV Q12H [facility] Last Admin: 05/19/17 07:45 Dose: Not Given Sodium Chloride (Normal Saline) 250 mls @ 20 mls/hr IV DAILY@1900 [facility] Last Admin: 05/18/17 18:29 Dose: 20 mls/hr Insulin Human Regular (Novolin R) 0 unit SUBCUT QIDACANDBED [facility] PRN Reason: Protocol Last Admin: 05/14/17 17:26 Dose: Not Given Prednisone (Prednisone) 40 mg PO ONETIME ONE Stop: 05/20/17 09:17 Sodium Chloride (Saline Flush) 10 ml FLUSH DAILY [facility] Last Admin: 05/12/17 11:23 Dose: 10 ml Sodium Chloride (Normal Saline) 10 ml FLUSH Q24H [facility] Last Admin: 05/12/17 11:10 Dose: 10 ml Sodium Chloride (Normal Saline) 10 ml FLUSH Q8HR [facility] Last Admin: 05/13/17 06:34 Dose: 10 ml Sodium Chloride (Saline Flush) 10 ml FLUSH DAILY [facility] Last Admin: 05/14/17 09:00 Dose: 10 ml Sodium Chloride (Saline Flush) 10 ml FLUSH 1100 [facility] Last Admin: 05/15/17 13:29 Dose: Not Given Sodium Chloride (Saline Flush) 10 ml FLUSH 0000,0200,1200,1400 [facility] Last Admin: 05/17/17 12:55 Dose: Not Given Sodium Chloride (Saline Flush) 10 ml FLUSH 0700,1000,1900,2200 [facility] Last Admin: 05/19/17 09:38 Dose: Not Given - Exam Quality Assessment: DVT Prophylaxis (Lovenox). No: Supplemental Oxygen General: Alert, Oriented, Cooperative, No Acute Distress HEENT: Mucous Membr. Moist/[place] (no lesions) Lungs: Clear to Auscultation, Normal Respiratory Effort Cardiovascular: Regular Rhythm, Tachycardia (90s) Skin: Warm, Dry, Rash (diffuse macular rash noted to the nape of neck down to the buttocks, the torso, axilla folds, and groin; no blisters or open wounds; no sloughing with pressure) Neurological: Normal Speech Psy/Mental Status: Alert, Normal Affect, Normal Mood. No: Anxious - Problem List Review Problem List Initiated/Reviewed/Updated: Yes - My Orders Last 24 Hours: My Active Orders 05/19/17 21:15 Sodium Chloride 0.9% [Normal Saline] 500 ml IV .BOLUS 05/20/17 09:15 Cetirizine [ZyrTEC] 10 mg PO DAILY 05/20/17 09:30 Famotidine [Pepcid] 20 mg PO BID - Plan Plan:: PRIMARY ASSESSMENT/PLAN Rash, question drug-induced versus detergent. This does not appear to be a type 1 hypersensitivity. Will give patient dose of vancomycin and monitor closely. Start on zyrtec 10 mg daily, prednisone 40 mg x 1 now, and pepcid 20 mg po BID. He is to receive a cool shower/bath to get rid of irritants. Copy of [place] culture obtained and reviewed, which do show a couple other options for MRSA coverage if he is unable to tolerate the vanco. S/P irrigation and debridement, left infected diabetic foot ulcer. Continue wound vac change every //--running on continuos 125 mmHg daily. Continue with PICC line for IV antibiotics. Continue po flagyl. See plan above regarding vancomycin. Patient needs frequent reinforcement of NWB to left limb. Continue physical therapy. Continue multivitamin and zinc. Diarrhea, noninfectious. Imodium PRN. Probiotics daily. Anemia, normocytic, normochromic, no anisocytosis. Most likely ACD. Will continue to monitor. SECONDARY ASSESSMENT/PLAN Diabetes mellitus, type 2. Glucose 78 this AM. Continue lantus BID and sliding scale. Continue metformin and victoza. Patient needs tighter control to promote healing. Hypertension, stable. Continue losartan and HCTZ. He is on potassium supplementation. History of MRSA. In house cultures negative, however [place] cultures reveal rare staphylococcus aureus (MRSA). Esophageal reflux. Continue omeprazole. Depression. Continue lexapro. No current psychotic features. Obesity, morbid. Continue with reduced caloric intake. Continue multivitamin and zinc. DVT prophylaxis. Continue lovenox and full strength aspirin. Overall plan: Monitor rash and for signs of anaphylaxis today. Continue with wound vac. Continue with physical therapy.
[2017-05-20] MEDS: Cetirizine 10 MG Tab PO SCH (10:08)
[2017-05-20] MEDS: Famotidine 20 MG Tab PO SCH ×2 (10:08→21:02)
[2017-05-20] MEDS: Sodium Chloride 0.9% 50 ML SDV FLUSH SCH ×3 (10:11→11:31)
[2017-05-20] MEDS: Sodium Chloride 0.9% 250 ML IV SCH (10:12)
[2017-05-20] MEDS: Enoxaparin 40 MG/0.4 ML Syringe SUBCUT SCH (11:28)
[2017-05-20] MEDS ORDERED: hydrOXYzine HCl 25 MG Tab PO ONE (20:30)
[2017-05-21] MEDS: Sodium Chloride 0.9% 250 ML IV SCH (06:23)
[2017-05-21] MEDS: Sodium Chloride 0.9% 50 ML SDV FLUSH SCH ×3 (06:23→17:44)
[2017-05-21] MEDS: Insulin Regular, Human 100 Units/ML 10 ML Vial SUBCUT SCH ×4 (07:09→21:09)
[2017-05-21] MEDS: Calcium Citrate/Vitamin D3 315 MG-250 Unit Tab PO SCH ×2 (08:22→18:01)
[2017-05-21] MEDS: metFORMIN 500 MG Tab PO SCH ×2 (08:22→18:01)
[2017-05-21] MEDS: Losartan 50 MG Tab PO SCH ×2 (08:23→21:00)
[2017-05-21] MEDS: Rosuvastatin 10 MG Tab PO SCH (08:23)
[2017-05-21] MEDS: Multivitamins with Minerals/Iron/Folic Acid/Lycopene Tab PO SCH (08:23)
[2017-05-21] MEDS: metroNIDAZOLE 500 MG Tab PO SCH ×3 (08:24→21:00)
[2017-05-21] MEDS: Aspirin 325 MG Tab.EC PO SCH (08:24)
[2017-05-21] MEDS: Potassium Chloride 10 MEQ Tab.ER PO SCH ×2 (08:24→21:00)
[2017-05-21] MEDS: Hydrochlorothiazide 25 MG Tab PO SCH (08:24)
[2017-05-21] MEDS: Escitalopram 10 MG Tab PO SCH (08:25)
[2017-05-21] MEDS: Insulin Detemir 100 Units/ML 3 ML Pen SUBCUT SCH ×2 (08:25→21:02)
[2017-05-21] MEDS: B.Bifidum/B.Longum/L.Acidophilus/L.Rhamnosus (Probiotic) Cap PO SCH (08:26)
[2017-05-21] MEDS: Nystatin Topical Powder 15 GM Bottle TOP SCH ×2 (08:26→21:01)
[2017-05-21] MEDS: Omeprazole 20 MG Cap.CR PO SCH (08:26)
[2017-05-21] MEDS: Acetaminophen 325 MG Tab PO SCH ×3 (08:27→21:00)
[2017-05-21] MEDS: Zinc (Zinc Gluconate) 50 MG Tab PO SCH (08:28)
[2017-05-21] MEDS: Liraglutide (rDNA Origin) 0.6 MG/0.1 ML 3 ML Pen SUBCUT SCH (08:28)
[2017-05-21] MEDS: Famotidine 20 MG Tab PO SCH ×2 (08:29→21:00)
[2017-05-21] MEDS: Cetirizine 10 MG Tab PO SCH (08:31)
[2017-05-21] MEDS: Enoxaparin 40 MG/0.4 ML Syringe SUBCUT SCH (11:24)
[2017-05-21] MEDS ORDERED: hydrOXYzine HCl 25 MG Tab PO ONE (18:00)
[2017-05-21] MEDS ORDERED: predniSONE 10 MG Tab PO ONE (18:00)
[2017-05-22] MEDS: Sodium Chloride 0.9% 50 ML SDV FLUSH SCH (06:13)
[2017-05-22] MEDS: Omeprazole 20 MG Cap.CR PO SCH (06:14)
[2017-05-22] MEDS: Sodium Chloride 0.9% 250 ML IV SCH (06:14)
[2017-05-22] MEDS: Insulin Regular, Human 100 Units/ML 10 ML Vial SUBCUT SCH ×4 (07:44→20:21)
[2017-05-22] MEDS: Calcium Citrate/Vitamin D3 315 MG-250 Unit Tab PO SCH ×2 (08:54→17:44)
[2017-05-22] MEDS: Multivitamins with Minerals/Iron/Folic Acid/Lycopene Tab PO SCH (08:55)
[2017-05-22] MEDS: Losartan 50 MG Tab PO SCH ×2 (08:55→20:18)
[2017-05-22] MEDS: metFORMIN 500 MG Tab PO SCH ×2 (08:55→17:44)
[2017-05-22] MEDS: Rosuvastatin 10 MG Tab PO SCH (08:56)
[2017-05-22] MEDS: Aspirin 325 MG Tab.EC PO SCH (08:56)
[2017-05-22] MEDS: metroNIDAZOLE 500 MG Tab PO SCH ×3 (08:56→20:18)
[2017-05-22] MEDS: Insulin Detemir 100 Units/ML 3 ML Pen SUBCUT SCH ×2 (08:57→20:19)
[2017-05-22] MEDS: Hydrochlorothiazide 25 MG Tab PO SCH (08:57)
[2017-05-22] MEDS: Potassium Chloride 10 MEQ Tab.ER PO SCH ×2 (08:57→20:18)
[2017-05-22] MEDS: Famotidine 20 MG Tab PO SCH ×2 (08:58→20:19)
[2017-05-22] MEDS: B.Bifidum/B.Longum/L.Acidophilus/L.Rhamnosus (Probiotic) Cap PO SCH (08:58)
[2017-05-22] MEDS: Escitalopram 10 MG Tab PO SCH (08:58)
[2017-05-22] MEDS: Nystatin Topical Powder 15 GM Bottle TOP SCH ×2 (08:58→20:19)
[2017-05-22] MEDS: Acetaminophen 325 MG Tab PO SCH ×3 (09:00→20:19)
[2017-05-22] MEDS: Liraglutide (rDNA Origin) 0.6 MG/0.1 ML 3 ML Pen SUBCUT SCH (09:00)
[2017-05-22] MEDS: Cetirizine 10 MG Tab PO SCH (09:01)
[2017-05-22] MEDS: Zinc (Zinc Gluconate) 50 MG Tab PO SCH (09:01)
[2017-05-22] MEDS ORDERED: Sodium Chloride 0.9% 10 ML Syringe FLUSH SCH (10:00)
[2017-05-22] MEDS ORDERED: Sodium Chloride 0.9% 250 ML IV SCH (11:00)
[2017-05-22] MEDS: Enoxaparin 40 MG/0.4 ML Syringe SUBCUT SCH (11:34)
[2017-05-22] MEDS: DAPTOmycin 500 MG in Sodium Chloride 0.9% 50 ML IV SCH (11:34)
[2017-05-22] MEDS: Sodium Chloride 0.9% 10 ML Syringe FLUSH SCH ×2 (11:34→12:28)
[2017-05-22] MEDS ORDERED: predniSONE 10 MG Tab PO ONE (18:00)
[2017-05-23] MEDS: Omeprazole 20 MG Cap.CR PO SCH (06:13)
[2017-05-23] MEDS: Insulin Regular, Human 100 Units/ML 10 ML Vial SUBCUT SCH ×4 (07:14→20:38)
[2017-05-23] MEDS: Losartan 50 MG Tab PO SCH ×2 (09:34→20:39)
[2017-05-23] MEDS: Multivitamins with Minerals/Iron/Folic Acid/Lycopene Tab PO SCH (09:34)
[2017-05-23] MEDS: metFORMIN 500 MG Tab PO SCH ×2 (09:34→17:46)
[2017-05-23] MEDS: Calcium Citrate/Vitamin D3 315 MG-250 Unit Tab PO SCH ×2 (09:34→17:47)
[2017-05-23] MEDS: Aspirin 325 MG Tab.EC PO SCH (09:35)
[2017-05-23] MEDS: Hydrochlorothiazide 25 MG Tab PO SCH (09:35)
[2017-05-23] MEDS: metroNIDAZOLE 500 MG Tab PO SCH (09:35)
[2017-05-23] MEDS: Potassium Chloride 10 MEQ Tab.ER PO SCH ×2 (09:35→20:38)
[2017-05-23] MEDS: Insulin Detemir 100 Units/ML 3 ML Pen SUBCUT SCH ×2 (09:35→20:39)
[2017-05-23] MEDS: Liraglutide (rDNA Origin) 0.6 MG/0.1 ML 3 ML Pen SUBCUT SCH (09:36)
[2017-05-23] MEDS: Escitalopram 10 MG Tab PO SCH (09:36)
[2017-05-23] MEDS: Nystatin Topical Powder 15 GM Bottle TOP SCH ×2 (09:36→20:38)
[2017-05-23] MEDS: B.Bifidum/B.Longum/L.Acidophilus/L.Rhamnosus (Probiotic) Cap PO SCH (09:36)
[2017-05-23] MEDS: Acetaminophen 325 MG Tab PO SCH ×3 (09:36→20:38)
[2017-05-23] MEDS: Famotidine 20 MG Tab PO SCH ×2 (09:36→20:39)
[2017-05-23] MEDS: Cetirizine 10 MG Tab PO SCH (09:37)
[2017-05-23] MEDS: Zinc (Zinc Gluconate) 50 MG Tab PO SCH (09:37)
[2017-05-23] MEDS: Sodium Chloride 0.9% 100 ML IV SCH (11:35)
[2017-05-23] MEDS: Sodium Chloride 0.9% 10 ML Syringe FLUSH SCH ×2 (11:35→12:25)
[2017-05-23] MEDS: DAPTOmycin 500 MG in Sodium Chloride 0.9% 50 ML IV SCH (11:35)
[2017-05-23] MEDS: Enoxaparin 40 MG/0.4 ML Syringe SUBCUT SCH (11:44)
--- NOTE | 2017-05-23 13:07 | PCM.PN ---
- General Info Date of Service: 05/23/17 Functional Status: Reports: Pain Controlled, New Symptoms (rash generalized. ) - Review of Systems General: Denies: Fever, Fatigue, Malaise, Chills Pulmonary: Reports: No Symptoms Cardiovascular: Reports: No Symptoms Gastrointestinal: Reports: No Symptoms Neurological: Reports: No Symptoms - Patient Data Vitals - Most Recent: Last Vital Signs Temp 98.2 F 05/23/17 06:37 Pulse 87 05/23/17 06:37 Resp 16 05/23/17 06:37 BP 109/67 05/23/17 09:34 Pulse Ox 98 05/23/17 06:37 Weight - Most Recent: 286 lb 9.6 oz I&O - Last 24 Hours: Intake & Output 05/22/17 05/23/17 05/23/17 22:59 06:59 14:59 Intake Total 460 250 90 Balance 460 250 90 Lab Results Last 24 Hours: Laboratory Results - last 24 hr 05/22/17 05/22/17 05/23/17 Range/Units 17:32 20:14 06:11 POC Glucose 202 H 179 H 70 L (74-106) mg/dl 05/23/17 Range/Units 11:34 POC Glucose 176 H (74-106) mg/dl Med Orders - Current: Current Medications Acetaminophen (Tylenol) 650 mg PO TID [facility] Last Admin: 05/23/17 09:36 Dose: 650 mg Aspirin (Ecotrin) 325 mg PO DAILY [facility] Last Admin: 05/23/17 09:35 Dose: 325 mg Calcium Citrate (Calcium Citrate + D) 2 tab PO BIDMEALS [facility] Last Admin: 05/23/17 09:34 Dose: 2 tab Cetirizine HCl (Zyrtec) 10 mg PO DAILY [facility] Last Admin: 05/23/17 09:37 Dose: 10 mg Enoxaparin Sodium (Lovenox) 40 mg SUBCUT 1100 [facility] Last Admin: 05/23/17 11:44 Dose: 40 mg Escitalopram Oxalate (Lexapro) 10 mg PO DAILY [facility] Last Admin: 05/23/17 09:36 Dose: 10 mg Famotidine (Pepcid) 20 mg PO BID [facility] Last Admin: 05/23/17 09:36 Dose: 20 mg Hydrochlorothiazide (Hydrochlorothiazide) 25 mg PO DAILY [facility] Last Admin: 05/23/17 09:35 Dose: 25 mg Daptomycin 500 mg/ Sodium (Chloride) 50 mls @ 100 mls/hr IV Q24H [facility] Stop: 06/04/17 11:31 Last Admin: 05/23/17 11:35 Dose: 100 mls/hr Sodium Chloride (Normal Saline) 100 mls @ 50 mls/hr IV 1100 [facility] Last Admin: 05/23/17 11:35 Dose: 50 mls/hr Insulin Detemir (Levemir) 0 unit SUBCUT BID [facility] Last Admin: 05/23/17 09:35 Dose: 33 units Insulin Human Regular (Novolin R) 0 unit SUBCUT 0730,1200,1800,2100 [facility] PRN Reason: Protocol Last Admin: 05/23/17 11:45 Dose: 3 unit Lactobacillus Acidophilus/Rhamnosus (Multi-Lina Plus) 1 cap PO DAILY [facility] Last Admin: 05/23/17 09:36 Dose: 1 cap Liraglutide (Victoza) 0 mg SUBCUT DAILY [facility] Last Admin: 05/23/17 09:36 Dose: 1.8 mg Loperamide HCl (Imodium) 2 mg PO Q6H PRN PRN Reason: Diarrhea Last Admin: 05/18/17 06:13 Dose: 2 mg Losartan Potassium (Cozaar) 50 mg PO BID [facility] Last Admin: 05/23/17 09:34 Dose: 50 mg Metformin HCl (Glucophage) 1,000 mg PO BIDMEALS [facility] Last Admin: 05/23/17 09:34 Dose: 1,000 mg Metronidazole (Flagyl) 500 mg PO TID [facility] Last Admin: 05/23/17 09:35 Dose: 500 mg Multivitamins/Minerals (Centrum) 1 tab PO DAILY [facility] Last Admin: 05/23/17 09:34 Dose: 1 tab Nystatin (Nystop) 0 gm TOP BID [facility] Last Admin: 05/23/17 09:36 Dose: 1 applic Omeprazole (Omeprazole) 20 mg PO ACBREAKFAST [facility] Last Admin: 05/23/17 06:13 Dose: 20 mg Polyethylene Glycol (Miralax) 17 gm PO DAILY PRN PRN Reason: Constipation Potassium Chloride (Klor-Con 10) 10 meq PO BID [facility] Last Admin: 05/23/17 09:35 Dose: 10 meq Rosuvastatin Calcium (Crestor) 5 mg PO DAILY [facility] Last Admin: 05/22/17 08:56 Dose: 5 mg Sodium Chloride (Saline Flush) 10 ml FLUSH 1100,1200 [facility] Last Admin: 05/23/17 12:25 Dose: 10 ml Zinc Gluconate (Zinc) 50 mg PO DAILY [facility] Last Admin: 05/23/17 09:37 Dose: 50 mg Discontinued Medications Ceftriaxone Sodium (Rocephin) 2 gm IV Q24H [facility] Last Admin: 05/11/17 16:59 Dose: Not Given Ceftriaxone Sodium (Rocephin) 2 gm IV Q24H [facility] Last Admin: 05/15/17 13:29 Dose: Not Given Diphenhydramine HCl (Benadryl) 25 mg PO ONETIME ONE Stop: 05/19/17 08:59 Last Admin: 05/19/17 09:39 Dose: 25 mg Diphenhydramine HCl (Benadryl) 50 mg PO ONETIME ONE Stop: 05/19/17 21:09 Last Admin: 05/19/17 21:21 Dose: 50 mg Enoxaparin Sodium (Lovenox) 40 mg SUBCUT Q24H [facility] Last Admin: 05/14/17 11:18 Dose: 40 mg Famotidine (Pepcid) 20 mg PO ONETIME ONE Stop: 05/19/17 08:59 Last Admin: 05/19/17 09:38 Dose: 20 mg Fondaparinux (Arixtra) 2.5 mg SUBCUT Q24H [facility] Last Admin: 05/12/17 10:53 Dose: Not Given Hydroxyzine HCl (Atarax) 25 mg PO ONETIME ONE Stop: 05/20/17 20:31 Last Admin: 05/20/17 20:55 Dose: 25 mg Hydroxyzine HCl (Atarax) 25 mg PO ONETIME ONE Stop: 05/21/17 18:01 Last Admin: 05/21/17 18:01 Dose: 25 mg Vancomycin HCl 2 gm/ Sodium (Chloride) 540 mls @ 170 mls/hr IV Q12H [facility] Last Admin: 05/17/17 12:53 Dose: Not Given Sodium Chloride (Normal Saline) 250 mls @ 20 mls/hr IV DAILY@1200 [facility] Last Admin: 05/17/17 12:54 Dose: Not Given Vancomycin HCl 1.75 gm/ Sodium (Chloride) 285 mls @ 103 mls/hr IV Q12H [facility] Last Admin: 05/19/17 07:45 Dose: Not Given Sodium Chloride (Normal Saline) 250 mls @ 20 mls/hr IV DAILY@1900 [facility] Last Admin: 05/18/17 18:29 Dose: 20 mls/hr Vancomycin HCl 1.75 gm/ Sodium (Chloride) 250 mls @ 100 mls/hr IV Q24H [facility] Last Admin: 05/20/17 10:12 Dose: 100 mls/hr Sodium Chloride (Normal Saline) 250 mls @ 50 mls/hr IV 0700 [facility] Last Admin: 05/22/17 06:14 Dose: Not Given Sodium Chloride (Normal Saline) 500 mls @ 999 mls/hr IV .BOLUS [facility] Last Admin: 05/19/17 21:21 Dose: 999 mls/hr Vancomycin HCl 1.75 gm/ Sodium (Chloride) 250 mls @ 100 mls/hr IV Q18H [facility] Last Admin: 05/21/17 00:36 Dose: 100 mls/hr Sodium Chloride (Normal Saline) 250 mls @ 50 mls/hr IV 1100 [facility] Last Admin: 05/22/17 11:47 Dose: Not Given Insulin Human Regular (Novolin R) 0 unit SUBCUT QIDACANDBED [facility] PRN Reason: Protocol Last Admin: 05/14/17 17:26 Dose: Not Given Omeprazole (Omeprazole) 20 mg PO DAILY [facility] Last Admin: 05/21/17 08:26 Dose: 20 mg Prednisone (Prednisone) 40 mg PO ONETIME ONE Stop: 05/20/17 09:17 Last Admin: 05/20/17 10:08 Dose: 40 mg Prednisone (Prednisone) 40 mg PO ONETIME ONE Stop: 05/22/17 18:01 Prednisone (Prednisone) 40 mg PO ONETIME ONE Stop: 05/21/17 18:01 Last Admin: 05/21/17 18:02 Dose: 40 mg Sodium Chloride (Saline Flush) 10 ml FLUSH DAILY [facility] Last Admin: 05/12/17 11:23 Dose: 10 ml Sodium Chloride (Normal Saline) 10 ml FLUSH Q24H [facility] Last Admin: 05/12/17 11:10 Dose: 10 ml Sodium Chloride (Normal Saline) 10 ml FLUSH Q8HR [facility] Last Admin: 05/13/17 06:34 Dose: 10 ml Sodium Chloride (Saline Flush) 10 ml FLUSH DAILY [facility] Last Admin: 05/14/17 09:00 Dose: 10 ml Sodium Chloride (Saline Flush) 10 ml FLUSH 1100 [facility] Last Admin: 05/15/17 13:29 Dose: Not Given Sodium Chloride (Saline Flush) 10 ml FLUSH 0000,0200,1200,1400 [facility] Last Admin: 05/17/17 12:55 Dose: Not Given Sodium Chloride (Saline Flush) 10 ml FLUSH 0700,1000,1900,2200 [facility] Last Admin: 05/19/17 09:38 Dose: Not Given Sodium Chloride (Normal Saline) 10 ml FLUSH 0700,1000 [facility] Last Admin: 05/22/17 06:13 Dose: Not Given Sodium Chloride (Saline Flush) 10 ml FLUSH 0700,1000 [facility] Last Admin: 05/22/17 11:47 Dose: Not Given Vancomycin HCl (Pharmacy To Dose - Vancomycin) 1 dose .XX ASDIRECTED [facility] - Exam Quality Assessment: No: Supplemental Oxygen General: Alert, Oriented, Cooperative, No Acute Distress Lungs: Clear to Auscultation, Normal Respiratory Effort Cardiovascular: Regular Rate, Regular Rhythm Extremities: No Pedal Edema Skin: Rash, Other (Numerous erythematous macules and papules generalized now in dependent areas. ) - Problem List Review Problem List Initiated/Reviewed/Updated: Yes - My Orders Last 24 Hours: My Active Orders 05/24/17 06:00 CRP [C-REACTIVE PROTEIN] [CHEM] Routine SEDIMENTATION RATE MANUAL [HEME] Routine 05/25/17 06:00 ALANINE AMINOTRANSFERASE,ALT [CHEM] WEEKLY CBC WITH AUTO DIFF [HEME] WEEKLY CREATININE W/GFR [CHEM] WEEKLY 06/01/17 06:00 ALANINE AMINOTRANSFERASE,ALT [CHEM] WEEKLY CBC WITH AUTO DIFF [HEME] WEEKLY CREATININE W/GFR [CHEM] WEEKLY 06/07/17 06:00 CRP [C-REACTIVE PROTEIN] [CHEM] Routine SEDIMENTATION RATE MANUAL [HEME] Routine 06/08/17 06:00 ALANINE AMINOTRANSFERASE,ALT [CHEM] WEEKLY CBC WITH AUTO DIFF [HEME] WEEKLY CREATININE W/GFR [CHEM] WEEKLY - Plan Plan:: PRIMARY ASSESSMENT/PLAN Rash, Drug-induced exanthem with numerous erythematous macules and papules generalized now in dependent areas appears biliform in nature. No angioedema or Anaphylaxis much less pruritic. Stopped Vancomycin yesterday and started Daptomycin. Currently on zyrtec 10 mg daily, prednisone 40 mg x 1 now, and pepcid 20 mg po BID. He is to receive a cool shower/bath to get rid of irritants. Will remove Flaglyl. Will also discontine LMWH for now however less likely. Benadryl will add. S/P irrigation and debridement, left infected diabetic foot ulcer. Continue wound vac change every M//--running on continuos 125 mmHg daily. Continue with PICC line for IV antibiotics. Continue po flagyl. Patient needs frequent reinforcement of NWB to left limb. Continue physical therapy. Continue multivitamin and zinc. Anemia, normocytic, normochromic, no anisocytosis. Most likely ACD. Will continue to monitor. SECONDARY ASSESSMENT/PLAN Diabetes mellitus, type 2. continue lantus BID and sliding scale. Continue metformin and victoza. Patient needs tighter control to promote healing. Hypertension, stable. Continue losartan and HCTZ. He is on potassium supplementation. History of MRSA. In-house cultures negative, however [place] cultures reveal rare staphylococcus aureus (MRSA). Esophageal reflux. Continue omeprazole. Depression. Continue lexapro. No current psychotic features. Obesity, morbid. Continue with reduced caloric intake. Continue multivitamin and zinc. DVT prophylaxis. Continue lovenox and full strength aspirin. Overall plan: Monitor rash and for signs of anaphylaxis today. Continue with wound vac. Continue with physical therapy.
[2017-05-23] MEDS ORDERED: predniSONE 20 MG Tab PO ONE (13:20)
[2017-05-23] MEDS: diphenhydrAMINE 25 MG Cap PO SCH ×2 (14:08→20:38)
[2017-05-24] MEDS: diphenhydrAMINE 25 MG Cap PO SCH ×2 (05:57→14:18)
[2017-05-24] MEDS: Omeprazole 20 MG Cap.CR PO SCH ×2 (05:58→06:10)
[2017-05-24] MEDS: Insulin Regular, Human 100 Units/ML 10 ML Vial SUBCUT SCH ×4 (07:53→21:33)
[2017-05-24] MEDS: metFORMIN 500 MG Tab PO SCH ×2 (07:54→18:40)
[2017-05-24] MEDS: Calcium Citrate/Vitamin D3 315 MG-250 Unit Tab PO SCH ×2 (07:54→18:40)
[2017-05-24] MEDS: Aspirin 325 MG Tab.EC PO SCH (09:09)
[2017-05-24] MEDS: Famotidine 20 MG Tab PO SCH ×2 (09:09→21:34)
[2017-05-24] MEDS: Escitalopram 10 MG Tab PO SCH (09:09)
[2017-05-24] MEDS: Potassium Chloride 10 MEQ Tab.ER PO SCH ×2 (09:09→21:29)
[2017-05-24] MEDS: Acetaminophen 325 MG Tab PO SCH ×3 (09:09→21:36)
[2017-05-24] MEDS: B.Bifidum/B.Longum/L.Acidophilus/L.Rhamnosus (Probiotic) Cap PO SCH (09:09)
[2017-05-24] MEDS: Zinc (Zinc Gluconate) 50 MG Tab PO SCH (09:09)
[2017-05-24] MEDS: Losartan 50 MG Tab PO SCH ×2 (09:09→21:26)
[2017-05-24] MEDS: Multivitamins with Minerals/Iron/Folic Acid/Lycopene Tab PO SCH (09:09)
[2017-05-24] MEDS: Hydrochlorothiazide 25 MG Tab PO SCH (09:09)
[2017-05-24] MEDS: Nystatin Topical Powder 15 GM Bottle TOP SCH ×2 (09:12→21:34)
[2017-05-24] MEDS: Insulin Detemir 100 Units/ML 3 ML Pen SUBCUT SCH ×2 (09:13→21:30)
[2017-05-24] MEDS: Liraglutide (rDNA Origin) 0.6 MG/0.1 ML 3 ML Pen SUBCUT SCH (09:14)
[2017-05-24] MEDS: DAPTOmycin 500 MG in Sodium Chloride 0.9% 50 ML IV SCH (11:45)
[2017-05-24] MEDS: Sodium Chloride 0.9% 100 ML IV SCH (11:46)
[2017-05-24] MEDS: Sodium Chloride 0.9% 10 ML Syringe FLUSH SCH ×2 (11:50→14:17)
[2017-05-24] MEDS ORDERED: diphenhydrAMINE 25 MG Cap PO PRN (14:44)
[2017-05-24] MEDS ORDERED: Sodium Chloride 0.9% 10 ML Syringe FLUSH SCH (23:59)
[2017-05-25] MEDS: Omeprazole 20 MG Cap.CR PO SCH (06:34)
[2017-05-25] MEDS: Insulin Regular, Human 100 Units/ML 10 ML Vial SUBCUT SCH ×4 (08:21→20:36)
[2017-05-25] MEDS: Liraglutide (rDNA Origin) 0.6 MG/0.1 ML 3 ML Pen SUBCUT SCH (08:22)
[2017-05-25] MEDS: Insulin Detemir 100 Units/ML 3 ML Pen SUBCUT SCH ×2 (08:23→20:35)
[2017-05-25] MEDS: Acetaminophen 325 MG Tab PO SCH ×3 (08:24→20:34)
[2017-05-25] MEDS: Nystatin Topical Powder 15 GM Bottle TOP SCH ×2 (08:24→20:33)
[2017-05-25] MEDS: Hydrochlorothiazide 25 MG Tab PO SCH (08:25)
[2017-05-25] MEDS: metFORMIN 500 MG Tab PO SCH ×2 (08:25→17:40)
[2017-05-25] MEDS: Multivitamins with Minerals/Iron/Folic Acid/Lycopene Tab PO SCH (08:25)
[2017-05-25] MEDS: Calcium Citrate/Vitamin D3 315 MG-250 Unit Tab PO SCH ×2 (08:25→17:40)
[2017-05-25] MEDS: Escitalopram 10 MG Tab PO SCH (08:25)
[2017-05-25] MEDS: Losartan 50 MG Tab PO SCH ×2 (08:26→20:33)
[2017-05-25] MEDS: Famotidine 20 MG Tab PO SCH ×2 (08:26→20:34)
[2017-05-25] MEDS: Potassium Chloride 10 MEQ Tab.ER PO SCH ×2 (08:26→20:33)
[2017-05-25] MEDS: Zinc (Zinc Gluconate) 50 MG Tab PO SCH (08:27)
[2017-05-25] MEDS: Aspirin 325 MG Tab.EC PO SCH (08:30)
[2017-05-25] MEDS: DAPTOmycin 500 MG in Sodium Chloride 0.9% 50 ML IV SCH (11:50)
[2017-05-25] MEDS: Sodium Chloride 0.9% 100 ML IV SCH (11:51)
[2017-05-25] MEDS: Sodium Chloride 0.9% 10 ML Syringe FLUSH SCH ×2 (11:52→13:00)
[2017-05-25] MEDS: B.Bifidum/B.Longum/L.Acidophilus/L.Rhamnosus (Probiotic) Cap PO SCH (17:40)
[2017-05-26] MEDS: Omeprazole 20 MG Cap.CR PO SCH (06:37)
[2017-05-26] MEDS: Insulin Regular, Human 100 Units/ML 10 ML Vial SUBCUT SCH ×4 (08:01→20:13)
[2017-05-26] MEDS: Escitalopram 10 MG Tab PO SCH (08:57)
[2017-05-26] MEDS: Famotidine 20 MG Tab PO SCH ×2 (08:57→20:14)
[2017-05-26] MEDS: Calcium Citrate/Vitamin D3 315 MG-250 Unit Tab PO SCH ×2 (08:57→17:59)
[2017-05-26] MEDS: Acetaminophen 325 MG Tab PO SCH ×3 (08:57→20:14)
[2017-05-26] MEDS: Potassium Chloride 10 MEQ Tab.ER PO SCH ×2 (08:57→20:13)
[2017-05-26] MEDS: Zinc (Zinc Gluconate) 50 MG Tab PO SCH (08:57)
[2017-05-26] MEDS: Aspirin 325 MG Tab.EC PO SCH (08:57)
[2017-05-26] MEDS: Multivitamins with Minerals/Iron/Folic Acid/Lycopene Tab PO SCH (08:57)
[2017-05-26] MEDS: Losartan 50 MG Tab PO SCH ×2 (08:58→20:13)
[2017-05-26] MEDS: Hydrochlorothiazide 25 MG Tab PO SCH (09:00)
[2017-05-26] MEDS: metFORMIN 500 MG Tab PO SCH ×2 (09:00→17:59)
[2017-05-26] MEDS: Liraglutide (rDNA Origin) 0.6 MG/0.1 ML 3 ML Pen SUBCUT SCH (09:06)
[2017-05-26] MEDS: Insulin Detemir 100 Units/ML 3 ML Pen SUBCUT SCH ×2 (09:06→20:14)
[2017-05-26] MEDS: Nystatin Topical Powder 15 GM Bottle TOP SCH ×2 (09:06→20:13)
[2017-05-26] MEDS: Sodium Chloride 0.9% 100 ML IV SCH (10:52)
[2017-05-26] MEDS: DAPTOmycin 500 MG in Sodium Chloride 0.9% 50 ML IV SCH (10:52)
[2017-05-26] MEDS: Sodium Chloride 0.9% 10 ML Syringe FLUSH SCH ×2 (10:54→12:11)
[2017-05-26] MEDS: Enoxaparin 40 MG/0.4 ML Syringe SUBCUT SCH (10:59)
[2017-05-26] MEDS: Hydrocortisone 1% Crm 30 GM Tube TOP PRN (16:19)
[2017-05-26] MEDS: B.Bifidum/B.Longum/L.Acidophilus/L.Rhamnosus (Probiotic) Cap PO SCH (17:59)
[2017-05-27] MEDS: Omeprazole 20 MG Cap.CR PO SCH (06:39)
[2017-05-27] MEDS: Insulin Regular, Human 100 Units/ML 10 ML Vial SUBCUT SCH ×4 (08:13→20:18)
[2017-05-27] MEDS: Acetaminophen 325 MG Tab PO SCH ×3 (08:20→20:17)
[2017-05-27] MEDS: Famotidine 20 MG Tab PO SCH ×2 (08:21→20:17)
[2017-05-27] MEDS: Potassium Chloride 10 MEQ Tab.ER PO SCH ×2 (08:21→20:17)
[2017-05-27] MEDS: Hydrochlorothiazide 25 MG Tab PO SCH (08:21)
[2017-05-27] MEDS: Zinc (Zinc Gluconate) 50 MG Tab PO SCH (08:21)
[2017-05-27] MEDS: Escitalopram 10 MG Tab PO SCH (08:33)
[2017-05-27] MEDS: metFORMIN 500 MG Tab PO SCH ×2 (08:33→17:50)
[2017-05-27] MEDS: Calcium Citrate/Vitamin D3 315 MG-250 Unit Tab PO SCH ×2 (08:33→17:50)
[2017-05-27] MEDS: Aspirin 325 MG Tab.EC PO SCH (08:33)
[2017-05-27] MEDS: Multivitamins with Minerals/Iron/Folic Acid/Lycopene Tab PO SCH (08:33)
[2017-05-27] MEDS: Losartan 50 MG Tab PO SCH ×2 (08:34→20:17)
[2017-05-27] MEDS: Insulin Detemir 100 Units/ML 3 ML Pen SUBCUT SCH ×2 (08:37→20:20)
[2017-05-27] MEDS: Nystatin Topical Powder 15 GM Bottle TOP SCH ×2 (08:37→20:17)
[2017-05-27] MEDS: Liraglutide (rDNA Origin) 0.6 MG/0.1 ML 3 ML Pen SUBCUT SCH (08:39)
[2017-05-27] MEDS: DAPTOmycin 500 MG in Sodium Chloride 0.9% 50 ML IV SCH (11:36)
[2017-05-27] MEDS: Sodium Chloride 0.9% 10 ML Syringe FLUSH SCH ×2 (11:40→13:14)
[2017-05-27] MEDS: Enoxaparin 40 MG/0.4 ML Syringe SUBCUT SCH (11:41)
[2017-05-27] MEDS: Sodium Chloride 0.9% 100 ML IV SCH (11:41)
[2017-05-27] MEDS ORDERED: hydrOXYzine Pamoate 25 MG Cap PO SCH (12:00)
[2017-05-27] MEDS: hydrOXYzine Pamoate 25 MG Cap PO SCH ×2 (16:17→22:06)
[2017-05-27] MEDS: B.Bifidum/B.Longum/L.Acidophilus/L.Rhamnosus (Probiotic) Cap PO SCH (17:50)
[2017-05-28] MEDS: hydrOXYzine Pamoate 25 MG Cap PO SCH ×4 (05:54→22:09)
[2017-05-28] MEDS: Omeprazole 20 MG Cap.CR PO SCH (06:02)
[2017-05-28] MEDS: Calcium Citrate/Vitamin D3 315 MG-250 Unit Tab PO SCH ×3 (06:03→18:17)
[2017-05-28] MEDS: Multivitamins with Minerals/Iron/Folic Acid/Lycopene Tab PO SCH ×2 (06:04→18:12)
[2017-05-28] MEDS: metFORMIN 500 MG Tab PO SCH ×3 (06:04→18:19)
[2017-05-28] MEDS: Losartan 50 MG Tab PO SCH ×3 (06:05→20:48)
[2017-05-28] MEDS: Aspirin 325 MG Tab.EC PO SCH ×2 (06:05→18:12)
[2017-05-28] MEDS: Hydrochlorothiazide 25 MG Tab PO SCH ×2 (06:06→18:12)
[2017-05-28] MEDS: Potassium Chloride 10 MEQ Tab.ER PO SCH ×3 (06:06→20:48)
[2017-05-28] MEDS: Escitalopram 10 MG Tab PO SCH ×2 (06:06→18:13)
[2017-05-28] MEDS: Famotidine 20 MG Tab PO SCH ×3 (06:07→20:49)
[2017-05-28] MEDS: Nystatin Topical Powder 15 GM Bottle TOP SCH ×3 (06:07→20:49)
[2017-05-28] MEDS: Acetaminophen 325 MG Tab PO SCH ×4 (06:07→20:50)
[2017-05-28] MEDS: Zinc (Zinc Gluconate) 50 MG Tab PO SCH ×2 (06:07→18:14)
[2017-05-28] MEDS: Insulin Detemir 100 Units/ML 3 ML Pen SUBCUT SCH ×3 (06:08→20:50)
[2017-05-28] MEDS: Liraglutide (rDNA Origin) 0.6 MG/0.1 ML 3 ML Pen SUBCUT SCH ×2 (06:09→18:14)
[2017-05-28] MEDS: Insulin Regular, Human 100 Units/ML 10 ML Vial SUBCUT SCH ×4 (06:30→20:53)
[2017-05-28] MEDS ORDERED: DAPTOmycin 800 MG in Sodium Chloride 0.9% 50 ML IV SCH (14:00)
[2017-05-28] MEDS: Enoxaparin 40 MG/0.4 ML Syringe SUBCUT SCH (18:14)
[2017-05-28] MEDS: Sodium Chloride 0.9% 10 ML Syringe FLUSH SCH ×2 (18:15)
[2017-05-28] MEDS: Sodium Chloride 0.9% 100 ML IV SCH (18:15)
[2017-05-28] MEDS: Hydrocortisone 1% Crm 30 GM Tube TOP PRN (18:20)
[2017-05-28] MEDS: DAPTOmycin 800 MG in Sodium Chloride 0.9% 50 ML IV SCH (18:26)
[2017-05-28] MEDS: DAPTOmycin 500 MG in Sodium Chloride 0.9% 50 ML IV SCH (18:44)
[2017-05-28] MEDS: metroNIDAZOLE 500 MG Tab PO SCH (22:08)
[2017-05-29] MEDS: hydrOXYzine Pamoate 25 MG Cap PO SCH ×4 (05:50→22:06)
[2017-05-29] MEDS: Omeprazole 20 MG Cap.CR PO SCH (06:37)
[2017-05-29] MEDS: metroNIDAZOLE 500 MG Tab PO SCH ×3 (06:37→21:49)
[2017-05-29] MEDS: Insulin Regular, Human 100 Units/ML 10 ML Vial SUBCUT SCH ×4 (07:32→20:52)
[2017-05-29] MEDS: metFORMIN 500 MG Tab PO SCH ×2 (08:44→17:32)
[2017-05-29] MEDS: Calcium Citrate/Vitamin D3 315 MG-250 Unit Tab PO SCH ×2 (08:44→17:32)
[2017-05-29] MEDS: Multivitamins with Minerals/Iron/Folic Acid/Lycopene Tab PO SCH (08:45)
[2017-05-29] MEDS: Aspirin 325 MG Tab.EC PO SCH (08:45)
[2017-05-29] MEDS: Losartan 50 MG Tab PO SCH ×2 (08:45→20:45)
[2017-05-29] MEDS: Hydrochlorothiazide 25 MG Tab PO SCH (08:46)
[2017-05-29] MEDS: Potassium Chloride 10 MEQ Tab.ER PO SCH ×2 (08:46→20:45)
[2017-05-29] MEDS: Insulin Detemir 100 Units/ML 3 ML Pen SUBCUT SCH ×2 (08:46→20:51)
[2017-05-29] MEDS: Famotidine 20 MG Tab PO SCH ×2 (08:47→20:45)
[2017-05-29] MEDS: Nystatin Topical Powder 15 GM Bottle TOP SCH ×2 (08:47→20:44)
[2017-05-29] MEDS: B.Bifidum/B.Longum/L.Acidophilus/L.Rhamnosus (Probiotic) Cap PO SCH (08:47)
[2017-05-29] MEDS: Escitalopram 10 MG Tab PO SCH (08:47)
[2017-05-29] MEDS: Acetaminophen 325 MG Tab PO SCH ×3 (08:48→20:46)
[2017-05-29] MEDS: Zinc (Zinc Gluconate) 50 MG Tab PO SCH (08:48)
[2017-05-29] MEDS: Liraglutide (rDNA Origin) 0.6 MG/0.1 ML 3 ML Pen SUBCUT SCH (08:48)
[2017-05-29] MEDS: Sodium Chloride 0.9% 10 ML Syringe FLUSH SCH ×3 (11:12→18:21)
[2017-05-29] MEDS: Enoxaparin 40 MG/0.4 ML Syringe SUBCUT SCH (12:05)
[2017-05-29] MEDS: DAPTOmycin 800 MG in Sodium Chloride 0.9% 50 ML IV SCH (17:32)
[2017-05-29] MEDS: Sodium Chloride 0.9% 100 ML IV SCH (17:32)
[2017-05-30] MEDS: hydrOXYzine Pamoate 25 MG Cap PO SCH ×4 (06:11→22:03)
[2017-05-30] MEDS: metroNIDAZOLE 500 MG Tab PO SCH ×3 (06:12→22:03)
[2017-05-30] MEDS: Omeprazole 20 MG Cap.CR PO SCH (06:12)
[2017-05-30] MEDS: Insulin Regular, Human 100 Units/ML 10 ML Vial SUBCUT SCH ×4 (07:11→20:26)
[2017-05-30] MEDS: metFORMIN 500 MG Tab PO SCH ×2 (08:15→17:38)
[2017-05-30] MEDS: Calcium Citrate/Vitamin D3 315 MG-250 Unit Tab PO SCH ×2 (08:15→17:37)
[2017-05-30] MEDS: Escitalopram 10 MG Tab PO SCH (08:16)
[2017-05-30] MEDS: Multivitamins with Minerals/Iron/Folic Acid/Lycopene Tab PO SCH (08:16)
[2017-05-30] MEDS: Potassium Chloride 10 MEQ Tab.ER PO SCH ×2 (08:16→20:24)
[2017-05-30] MEDS: B.Bifidum/B.Longum/L.Acidophilus/L.Rhamnosus (Probiotic) Cap PO SCH (08:16)
[2017-05-30] MEDS: Aspirin 325 MG Tab.EC PO SCH (08:16)
[2017-05-30] MEDS: Hydrochlorothiazide 25 MG Tab PO SCH (08:16)
[2017-05-30] MEDS: Famotidine 20 MG Tab PO SCH ×2 (08:17→20:24)
[2017-05-30] MEDS: Zinc (Zinc Gluconate) 50 MG Tab PO SCH (08:17)
[2017-05-30] MEDS: Acetaminophen 325 MG Tab PO SCH ×3 (08:17→20:24)
[2017-05-30] MEDS: Insulin Detemir 100 Units/ML 3 ML Pen SUBCUT SCH ×2 (08:19→20:24)
[2017-05-30] MEDS: Liraglutide (rDNA Origin) 0.6 MG/0.1 ML 3 ML Pen SUBCUT SCH (08:20)
[2017-05-30] MEDS: Nystatin Topical Powder 15 GM Bottle TOP SCH ×2 (08:22→20:24)
[2017-05-30] MEDS: Losartan 50 MG Tab PO SCH ×2 (08:22→20:24)
[2017-05-30] MEDS: Enoxaparin 40 MG/0.4 ML Syringe SUBCUT SCH (11:59)
[2017-05-30] MEDS: Sodium Chloride 0.9% 100 ML IV SCH ×2 (13:25→17:38)
[2017-05-30] MEDS: Sodium Chloride 0.9% 10 ML Syringe FLUSH SCH ×2 (17:38→18:46)
[2017-05-30] MEDS: DAPTOmycin 800 MG in Sodium Chloride 0.9% 50 ML IV SCH (17:38)
[2017-05-31] MEDS: Omeprazole 20 MG Cap.CR PO SCH (06:04)
[2017-05-31] MEDS: metroNIDAZOLE 500 MG Tab PO SCH ×3 (06:04→21:26)
[2017-05-31] MEDS: hydrOXYzine Pamoate 25 MG Cap PO SCH ×2 (06:04→11:27)
[2017-05-31] MEDS: Insulin Regular, Human 100 Units/ML 10 ML Vial SUBCUT SCH ×4 (07:36→20:38)
[2017-05-31] MEDS: Multivitamins with Minerals/Iron/Folic Acid/Lycopene Tab PO SCH (08:07)
[2017-05-31] MEDS: metFORMIN 500 MG Tab PO SCH ×2 (08:07→18:11)
[2017-05-31] MEDS: Calcium Citrate/Vitamin D3 315 MG-250 Unit Tab PO SCH ×2 (08:07→18:10)
[2017-05-31] MEDS: Aspirin 325 MG Tab.EC PO SCH (08:08)
[2017-05-31] MEDS: B.Bifidum/B.Longum/L.Acidophilus/L.Rhamnosus (Probiotic) Cap PO SCH (08:09)
[2017-05-31] MEDS: Escitalopram 10 MG Tab PO SCH (08:09)
[2017-05-31] MEDS: Potassium Chloride 10 MEQ Tab.ER PO SCH ×2 (08:09→21:24)
[2017-05-31] MEDS: Hydrochlorothiazide 25 MG Tab PO SCH (08:09)
[2017-05-31] MEDS: Losartan 50 MG Tab PO SCH ×2 (08:10→21:23)
[2017-05-31] MEDS: Famotidine 20 MG Tab PO SCH ×2 (08:11→21:24)
[2017-05-31] MEDS: Acetaminophen 325 MG Tab PO SCH ×3 (08:12→21:23)
[2017-05-31] MEDS: Zinc (Zinc Gluconate) 50 MG Tab PO SCH (08:13)
[2017-05-31] MEDS: Liraglutide (rDNA Origin) 0.6 MG/0.1 ML 3 ML Pen SUBCUT SCH (08:14)
[2017-05-31] MEDS: Insulin Detemir 100 Units/ML 3 ML Pen SUBCUT SCH ×2 (08:14→21:19)
[2017-05-31] MEDS: Nystatin Topical Powder 15 GM Bottle TOP SCH ×2 (09:48→21:18)
--- NOTE | 2017-05-31 11:15 | PCM.PN ---
- General Info Date of Service: 05/31/17 Subjective Update: Mr. Huertas is doing well without complaints. He saw podiatry on Sunday and wound vac continues. Daptomycin was increased in dose and Flagyl restarted. Rash thought to be due to vancomycin has nearly resolved. No other concerns. Functional Status: Reports: Tolerating Diet, Ambulating (with boot on LLE), Urinating. Denies: New Symptoms - Review of Systems General: Denies: Fever, Fatigue Pulmonary: Denies: Shortness of Breath, Cough Cardiovascular: Denies: Chest Pain Gastrointestinal: Denies: Abdominal Pain, Decreased Appetite Genitourinary: Denies: Dysuria - Patient Data Vitals - Most Recent: Last Vital Signs Temp 35.6 C 05/31/17 06:46 Pulse 88 05/31/17 06:46 Resp 18 05/31/17 06:46 BP 113/65 05/31/17 08:10 Pulse Ox 96 05/31/17 06:46 Weight - Most Recent: 126.734 kg I&O - Last 24 Hours: Intake & Output 05/30/17 05/31/17 05/31/17 22:59 06:59 14:59 Intake Total 446 100 Output Total 750 Balance 446 -650 Lab Results Last 24 Hours: Laboratory Results - last 24 hr 05/30/17 05/30/17 05/30/17 Range/Units 11:58 17:32 20:20 POC Glucose 132 H 178 H 270 H (74-106) mg/dl 05/31/17 Range/Units 06:40 POC Glucose 143 H (74-106) mg/dl Med Orders - Current: Current Medications Acetaminophen (Tylenol) 650 mg PO TID [facility] Last Admin: 05/31/17 08:12 Dose: 650 mg Aspirin (Ecotrin) 325 mg PO DAILY [facility] Last Admin: 05/31/17 08:08 Dose: 325 mg Calcium Citrate (Calcium Citrate + D) 2 tab PO BIDMEALS [facility] Last Admin: 05/31/17 08:07 Dose: 2 tab Enoxaparin Sodium (Lovenox) 40 mg SUBCUT 1100 [facility] Last Admin: 05/30/17 11:59 Dose: 40 mg Escitalopram Oxalate (Lexapro) 10 mg PO DAILY [facility] Last Admin: 05/31/17 08:09 Dose: 10 mg Famotidine (Pepcid) 20 mg PO BID [facility] Last Admin: 05/31/17 08:11 Dose: 20 mg Hydrochlorothiazide (Hydrochlorothiazide) 25 mg PO DAILY [facility] Last Admin: 05/31/17 08:09 Dose: 25 mg Daptomycin 800 mg/ Sodium (Chloride) 66 mls @ 132 mls/hr IV Q24H [facility] Last Admin: 05/30/17 17:38 Dose: 132 mls/hr Sodium Chloride (Normal Saline) 100 mls @ 50 mls/hr IV 1800 [facility] Last Admin: 05/30/17 17:38 Dose: 50 mls/hr Insulin Detemir (Levemir) 0 unit SUBCUT BID [facility] Last Admin: 05/31/17 08:14 Dose: 33 units Insulin Human Regular (Novolin R) 0 unit SUBCUT 0730,1200,1800,2100 [facility] PRN Reason: Protocol Last Admin: 05/31/17 07:36 Dose: Not Given Lactobacillus Acidophilus/Rhamnosus (Multi-Lina Plus) 1 cap PO DAILY [facility] Last Admin: 05/31/17 08:09 Dose: 1 cap Liraglutide (Victoza) 0 mg SUBCUT DAILY [facility] Last Admin: 05/31/17 08:14 Dose: 1.8 mg Loperamide HCl (Imodium) 2 mg PO Q6H PRN PRN Reason: Diarrhea Last Admin: 05/18/17 06:13 Dose: 2 mg Losartan Potassium (Cozaar) 50 mg PO BID [facility] Last Admin: 05/31/17 08:10 Dose: 50 mg Metformin HCl (Glucophage) 1,000 mg PO BIDMEALS [facility] Last Admin: 05/31/17 08:07 Dose: 1,000 mg Metronidazole (Flagyl) 500 mg PO Q8HR [facility] Last Admin: 05/31/17 06:04 Dose: 500 mg Multivitamins/Minerals (Centrum) 1 tab PO DAILY [facility] Last Admin: 05/31/17 08:07 Dose: 1 tab Nystatin (Nystop) 0 gm TOP BID [facility] Last Admin: 05/31/17 09:48 Dose: 1 applic Omeprazole (Omeprazole) 20 mg PO ACBREAKFAST [facility] Last Admin: 05/31/17 06:04 Dose: 20 mg Polyethylene Glycol (Miralax) 17 gm PO DAILY PRN PRN Reason: Constipation Potassium Chloride (Klor-Con 10) 10 meq PO BID [facility] Last Admin: 05/31/17 08:09 Dose: 10 meq Rosuvastatin Calcium (Crestor) 5 mg PO DAILY [facility] Last Admin: 05/22/17 08:56 Dose: 5 mg Sodium Chloride (Saline Flush) 10 ml FLUSH 1800,1900 [facility] Last Admin: 05/30/17 18:46 Dose: 10 ml Zinc Gluconate (Zinc) 50 mg PO DAILY [facility] Last Admin: 05/31/17 08:13 Dose: 50 mg Discontinued Medications Ceftriaxone Sodium (Rocephin) 2 gm IV Q24H [facility] Last Admin: 05/11/17 16:59 Dose: Not Given Ceftriaxone Sodium (Rocephin) 2 gm IV Q24H [facility] Last Admin: 05/15/17 13:29 Dose: Not Given Cetirizine HCl (Zyrtec) 10 mg PO DAILY [facility] Last Admin: 05/23/17 09:37 Dose: 10 mg Diphenhydramine HCl (Benadryl) 25 mg PO ONETIME ONE Stop: 05/19/17 08:59 Last Admin: 05/19/17 09:39 Dose: 25 mg Diphenhydramine HCl (Benadryl) 50 mg PO ONETIME ONE Stop: 05/19/17 21:09 Last Admin: 05/19/17 21:21 Dose: 50 mg Diphenhydramine HCl (Benadryl) 25 mg PO Q8H [facility] Last Admin: 05/24/17 14:18 Dose: Not Given Diphenhydramine HCl (Benadryl) 25 mg PO Q8H PRN PRN Reason: itching and rash Last Admin: 05/27/17 08:34 Dose: 25 mg Enoxaparin Sodium (Lovenox) 40 mg SUBCUT Q24H [facility] Last Admin: 05/14/17 11:18 Dose: 40 mg Famotidine (Pepcid) 20 mg PO ONETIME ONE Stop: 05/19/17 08:59 Last Admin: 05/19/17 09:38 Dose: 20 mg Fondaparinux (Arixtra) 2.5 mg SUBCUT Q24H [facility] Last Admin: 05/12/17 10:53 Dose: Not Given Hydrocortisone (Hydrocortisone 1% Crm) 0 gm TOP BID PRN PRN Reason: itch Last Admin: 05/28/17 18:20 Dose: 1 applic Hydroxyzine HCl (Atarax) 25 mg PO ONETIME ONE Stop: 05/20/17 20:31 Last Admin: 05/20/17 20:55 Dose: 25 mg Hydroxyzine HCl (Atarax) 25 mg PO ONETIME ONE Stop: 05/21/17 18:01 Last Admin: 05/21/17 18:01 Dose: 25 mg Hydroxyzine Pamoate (Vistaril) 25 mg PO Q6H [facility] Last Admin: 05/27/17 19:32 Dose: Not Given Hydroxyzine Pamoate (Vistaril) 25 mg PO Q6H [facility] Last Admin: 05/31/17 06:04 Dose: 25 mg Vancomycin HCl 2 gm/ Sodium (Chloride) 540 mls @ 170 mls/hr IV Q12H [facility] Last Admin: 05/17/17 12:53 Dose: Not Given Sodium Chloride (Normal Saline) 250 mls @ 20 mls/hr IV DAILY@1200 [facility] Last Admin: 05/17/17 12:54 Dose: Not Given Vancomycin HCl 1.75 gm/ Sodium (Chloride) 285 mls @ 103 mls/hr IV Q12H [facility] Last Admin: 05/19/17 07:45 Dose: Not Given Sodium Chloride (Normal Saline) 250 mls @ 20 mls/hr IV DAILY@1900 [facility] Last Admin: 05/18/17 18:29 Dose: 20 mls/hr Vancomycin HCl 1.75 gm/ Sodium (Chloride) 250 mls @ 100 mls/hr IV Q24H [facility] Last Admin: 05/20/17 10:12 Dose: 100 mls/hr Sodium Chloride (Normal Saline) 250 mls @ 50 mls/hr IV 0700 [facility] Last Admin: 05/22/17 06:14 Dose: Not Given Sodium Chloride (Normal Saline) 500 mls @ 999 mls/hr IV .BOLUS [facility] Last Admin: 05/19/17 21:21 Dose: 999 mls/hr Vancomycin HCl 1.75 gm/ Sodium (Chloride) 250 mls @ 100 mls/hr IV Q18H [facility] Last Admin: 05/21/17 00:36 Dose: 100 mls/hr Daptomycin 500 mg/ Sodium (Chloride) 50 mls @ 100 mls/hr IV Q24H [facility] Stop: 06/04/17 11:31 Last Admin: 05/28/17 18:44 Dose: Not Given Sodium Chloride (Normal Saline) 250 mls @ 50 mls/hr IV 1100 [facility] Last Admin: 05/22/17 11:47 Dose: Not Given Sodium Chloride (Normal Saline) 100 mls @ 50 mls/hr IV 1100 [facility] Last Admin: 05/28/17 18:15 Dose: 50 mls/hr Daptomycin 800 mg/ Sodium (Chloride) 66 mls @ 132 mls/hr IV Q24H [facility] Last Admin: 05/28/17 18:44 Dose: Not Given Sodium Chloride (Normal Saline) 100 mls @ 50 mls/hr IV 1100 [facility] Last Admin: 05/30/17 13:25 Dose: Not Given Insulin Human Regular (Novolin R) 0 unit SUBCUT QIDACANDBED [facility] PRN Reason: Protocol Last Admin: 05/14/17 17:26 Dose: Not Given Lactobacillus Acidophilus/Rhamnosus (Multi-Lina Plus) 1 cap PO DAILY [facility] Last Admin: 05/24/17 09:09 Dose: 1 cap Lactobacillus Acidophilus/Rhamnosus (Multi-Lina Plus) 1 cap PO DAILY@1800 [facility] Last Admin: 05/27/17 17:50 Dose: 1 cap Metronidazole (Flagyl) 500 mg PO TID [facility] Last Admin: 05/23/17 09:35 Dose: 500 mg Omeprazole (Omeprazole) 20 mg PO DAILY [facility] Last Admin: 05/21/17 08:26 Dose: 20 mg Prednisone (Prednisone) 40 mg PO ONETIME ONE Stop: 05/20/17 09:17 Last Admin: 05/20/17 10:08 Dose: 40 mg Prednisone (Prednisone) 40 mg PO ONETIME ONE Stop: 05/22/17 18:01 Prednisone (Prednisone) 40 mg PO ONETIME ONE Stop: 05/21/17 18:01 Last Admin: 05/21/17 18:02 Dose: 40 mg Prednisone (Prednisone) 40 mg PO ONETIME ONE Stop: 05/23/17 13:21 Last Admin: 05/23/17 14:08 Dose: 40 mg Sodium Chloride (Saline Flush) 10 ml FLUSH DAILY [facility] Last Admin: 05/12/17 11:23 Dose: 10 ml Sodium Chloride (Normal Saline) 10 ml FLUSH Q24H [facility] Last Admin: 05/12/17 11:10 Dose: 10 ml Sodium Chloride (Normal Saline) 10 ml FLUSH Q8HR [facility] Last Admin: 05/13/17 06:34 Dose: 10 ml Sodium Chloride (Saline Flush) 10 ml FLUSH DAILY [facility] Last Admin: 05/14/17 09:00 Dose: 10 ml Sodium Chloride (Saline Flush) 10 ml FLUSH 1100 [facility] Last Admin: 05/15/17 13:29 Dose: Not Given Sodium Chloride (Saline Flush) 10 ml FLUSH 0000,0200,1200,1400 [facility] Last Admin: 05/17/17 12:55 Dose: Not Given Sodium Chloride (Saline Flush) 10 ml FLUSH 0700,1000,1900,2200 [facility] Last Admin: 05/19/17 09:38 Dose: Not Given Sodium Chloride (Normal Saline) 10 ml FLUSH 0700,1000 [facility] Last Admin: 05/22/17 06:13 Dose: Not Given Sodium Chloride (Saline Flush) 10 ml FLUSH 0700,1000 [facility] Last Admin: 05/22/17 11:47 Dose: Not Given Sodium Chloride (Saline Flush) 10 ml FLUSH 1100,1200 [facility] Last Admin: 05/29/17 11:12 Dose: Not Given Sodium Chloride (Saline Flush) 10 ml FLUSH DAILY@2359 [facility] Last Admin: 05/25/17 06:16 Dose: Not Given Vancomycin HCl (Pharmacy To Dose - Vancomycin) 1 dose .XX ASDIRECTED [facility] - Exam General: Alert, Oriented, Cooperative HEENT: Mucous Membr. Moist/[place] Lungs: Clear to Auscultation, Normal Respiratory Effort Cardiovascular: Regular Rate, Regular Rhythm, No Murmurs GI/Abdominal Exam: Normal Bowel Sounds, Soft, Non-Tender Extremities: Other (LLE with wound vac and overlying dressing in place) Peripheral Pulses: 2+: Posterior Tibial (L), Posterior Tibial (R), Dorsalis Pedis (L), Dorsalis Pedis (R) Skin: Warm, Dry, Intact, Rash (near resolution) Psy/Mental Status: Alert, Normal Affect, Normal Mood - Problem List Review Problem List Initiated/Reviewed/Updated: Yes - My Orders Last 24 Hours: My Active Orders 06/08/17 06:00 A1C [GLYCOSYLATED HEMOGLOBIN,HGBA1C] [CHEM] Routine - Plan Plan:: Mr. Huertas is a 56yoM admitted to swing bed status on 05/12/17 due to wound care of left infected diabetic foot ulcer. # Left diabetic foot ulcer: S/p irrigation and debridement. Continue wound vac change every M/W/F--running on continuous 125 mmHg daily. Continue with PICC line for IV antibiotics with daptomycin and Flagyl. Also continue lactobacillius due to skilled nursing antibiotic use. Pain controlled with Tylenol TID. Weekly CRP, ESR, CBC, and CMP due next on 06/08. # Limited mobility: Now improved with boot allowing partial weight bearing. Continue physical therapy. # Drug-induced exanthem: Likely secondary to vancomycin, which was changed to daptomycin. Near complete resolution. Continue monitoring. Chronic medical conditions: # HTN: Stable. Continue losartan and HCTZ in addition to KCl supplementation. # HLD: Stable. Continue rosuvastatin and ASA. # GERD: Stable. Continue omeprazole. # DMT2: Stable. Continue metformin, Victoza, Lantus BID and sliding scale with QID BG checks. A1c due and will be obtained with next labs on 06/08. # Obesity, morbid: Continue reduced caloric diet and activity per physical therapy. # Anemia of chronic disease: Stable. Recheck CBC with next labs on 06/08. # Depression: Stable. Continue Lexapro. # FEN: No IVF; IV antibiotics through PICC line, as above. Electrolytes normal last week; continue KCl supplementation, as above. Diabetic diet. # PPX: Enoxaparin and ambulation as tolerated for DVT ppx. # CODE: Full code. # Disposition: Continue on swing bed.
[2017-05-31] MEDS: Enoxaparin 40 MG/0.4 ML Syringe SUBCUT SCH (12:03)
[2017-05-31] MEDS: DAPTOmycin 800 MG in Sodium Chloride 0.9% 50 ML IV SCH (18:22)
[2017-05-31] MEDS: Sodium Chloride 0.9% 100 ML IV SCH (18:25)
[2017-05-31] MEDS: Sodium Chloride 0.9% 10 ML Syringe FLUSH SCH ×2 (18:34→18:35)
[2017-06-01] MEDS: metroNIDAZOLE 500 MG Tab PO SCH ×3 (05:46→21:42)
[2017-06-01] MEDS: Omeprazole 20 MG Cap.CR PO SCH (06:12)
[2017-06-01] MEDS: Insulin Regular, Human 100 Units/ML 10 ML Vial SUBCUT SCH ×4 (07:48→21:49)
[2017-06-01] MEDS: Calcium Citrate/Vitamin D3 315 MG-250 Unit Tab PO SCH ×2 (08:07→17:55)
[2017-06-01] MEDS: Potassium Chloride 10 MEQ Tab.ER PO SCH ×2 (08:08→21:42)
[2017-06-01] MEDS: Aspirin 325 MG Tab.EC PO SCH (08:08)
[2017-06-01] MEDS: Escitalopram 10 MG Tab PO SCH (08:08)
[2017-06-01] MEDS: B.Bifidum/B.Longum/L.Acidophilus/L.Rhamnosus (Probiotic) Cap PO SCH (08:08)
[2017-06-01] MEDS: metFORMIN 500 MG Tab PO SCH ×2 (08:09→17:55)
[2017-06-01] MEDS: Zinc (Zinc Gluconate) 50 MG Tab PO SCH (08:10)
[2017-06-01] MEDS: Famotidine 20 MG Tab PO SCH ×2 (08:10→21:42)
[2017-06-01] MEDS: Multivitamins with Minerals/Iron/Folic Acid/Lycopene Tab PO SCH (08:10)
[2017-06-01] MEDS: Losartan 50 MG Tab PO SCH ×2 (08:10→21:42)
[2017-06-01] MEDS: Nystatin Topical Powder 15 GM Bottle TOP SCH ×2 (08:11→21:42)
[2017-06-01] MEDS: Hydrochlorothiazide 25 MG Tab PO SCH (08:11)
[2017-06-01] MEDS: Acetaminophen 325 MG Tab PO SCH ×3 (08:12→21:45)
[2017-06-01] MEDS: Insulin Detemir 100 Units/ML 3 ML Pen SUBCUT SCH ×2 (08:13→21:50)
[2017-06-01] MEDS: Liraglutide (rDNA Origin) 0.6 MG/0.1 ML 3 ML Pen SUBCUT SCH (08:14)
[2017-06-01] MEDS: Enoxaparin 40 MG/0.4 ML Syringe SUBCUT SCH (12:00)
[2017-06-01] MEDS: Sodium Chloride 0.9% 10 ML Syringe FLUSH SCH ×2 (17:08→17:56)
[2017-06-01] MEDS: DAPTOmycin 800 MG in Sodium Chloride 0.9% 50 ML IV SCH (17:08)
[2017-06-01] MEDS: Sodium Chloride 0.9% 100 ML IV SCH (17:09)
[2017-06-02] MEDS: metroNIDAZOLE 500 MG Tab PO SCH ×3 (06:23→21:25)
[2017-06-02] MEDS: Omeprazole 20 MG Cap.CR PO SCH (06:23)
[2017-06-02] MEDS: Insulin Regular, Human 100 Units/ML 10 ML Vial SUBCUT SCH ×4 (07:43→21:30)
[2017-06-02] MEDS: Zinc (Zinc Gluconate) 50 MG Tab PO SCH (08:42)
[2017-06-02] MEDS: Liraglutide (rDNA Origin) 0.6 MG/0.1 ML 3 ML Pen SUBCUT SCH (08:42)
[2017-06-02] MEDS: Famotidine 20 MG Tab PO SCH ×2 (08:43→21:26)
[2017-06-02] MEDS: Nystatin Topical Powder 15 GM Bottle TOP SCH ×2 (08:44→21:26)
[2017-06-02] MEDS: Acetaminophen 325 MG Tab PO SCH ×3 (08:44→21:25)
[2017-06-02] MEDS: Insulin Detemir 100 Units/ML 3 ML Pen SUBCUT SCH ×2 (08:45→21:27)
[2017-06-02] MEDS: B.Bifidum/B.Longum/L.Acidophilus/L.Rhamnosus (Probiotic) Cap PO SCH (08:45)
[2017-06-02] MEDS: Escitalopram 10 MG Tab PO SCH (08:45)
[2017-06-02] MEDS: Potassium Chloride 10 MEQ Tab.ER PO SCH ×2 (08:46→21:27)
[2017-06-02] MEDS: Hydrochlorothiazide 25 MG Tab PO SCH (08:46)
[2017-06-02] MEDS: Aspirin 325 MG Tab.EC PO SCH (08:48)
[2017-06-02] MEDS: Multivitamins with Minerals/Iron/Folic Acid/Lycopene Tab PO SCH (08:48)
[2017-06-02] MEDS: Losartan 50 MG Tab PO SCH ×2 (08:48→21:26)
[2017-06-02] MEDS: metFORMIN 500 MG Tab PO SCH ×2 (08:49→18:10)
[2017-06-02] MEDS: Calcium Citrate/Vitamin D3 315 MG-250 Unit Tab PO SCH ×2 (08:49→18:10)
[2017-06-02] MEDS: Enoxaparin 40 MG/0.4 ML Syringe SUBCUT SCH (11:31)
[2017-06-02] MEDS: DAPTOmycin 800 MG in Sodium Chloride 0.9% 50 ML IV SCH (17:32)
[2017-06-02] MEDS: Sodium Chloride 0.9% 100 ML IV SCH (17:33)
[2017-06-02] MEDS: Sodium Chloride 0.9% 10 ML Syringe FLUSH SCH ×2 (17:33→18:11)
[2017-06-03] MEDS: metroNIDAZOLE 500 MG Tab PO SCH ×3 (06:35→21:38)
[2017-06-03] MEDS: Omeprazole 20 MG Cap.CR PO SCH (06:35)
[2017-06-03] MEDS: Insulin Regular, Human 100 Units/ML 10 ML Vial SUBCUT SCH ×4 (07:30→21:37)
[2017-06-03] MEDS: Zinc (Zinc Gluconate) 50 MG Tab PO SCH (08:47)
[2017-06-03] MEDS: Liraglutide (rDNA Origin) 0.6 MG/0.1 ML 3 ML Pen SUBCUT SCH (08:47)
[2017-06-03] MEDS: Famotidine 20 MG Tab PO SCH ×2 (08:48→21:37)
[2017-06-03] MEDS: Acetaminophen 325 MG Tab PO SCH ×3 (08:48→21:38)
[2017-06-03] MEDS: Insulin Detemir 100 Units/ML 3 ML Pen SUBCUT SCH ×2 (08:50→21:35)
[2017-06-03] MEDS: Nystatin Topical Powder 15 GM Bottle TOP SCH ×2 (08:50→21:45)
[2017-06-03] MEDS: Escitalopram 10 MG Tab PO SCH (08:50)
[2017-06-03] MEDS: B.Bifidum/B.Longum/L.Acidophilus/L.Rhamnosus (Probiotic) Cap PO SCH (08:50)
[2017-06-03] MEDS: Potassium Chloride 10 MEQ Tab.ER PO SCH ×2 (08:51→21:34)
[2017-06-03] MEDS: Hydrochlorothiazide 25 MG Tab PO SCH (08:51)
[2017-06-03] MEDS: Calcium Citrate/Vitamin D3 315 MG-250 Unit Tab PO SCH ×2 (08:52→17:27)
[2017-06-03] MEDS: metFORMIN 500 MG Tab PO SCH ×2 (08:52→17:27)
[2017-06-03] MEDS: Aspirin 325 MG Tab.EC PO SCH (08:52)
[2017-06-03] MEDS: Multivitamins with Minerals/Iron/Folic Acid/Lycopene Tab PO SCH (08:55)
[2017-06-03] MEDS: Losartan 50 MG Tab PO SCH ×2 (08:55→21:34)
[2017-06-03] MEDS: Enoxaparin 40 MG/0.4 ML Syringe SUBCUT SCH (12:02)
[2017-06-03] MEDS: DAPTOmycin 800 MG in Sodium Chloride 0.9% 50 ML IV SCH (16:39)
[2017-06-03] MEDS: Sodium Chloride 0.9% 100 ML IV SCH (16:39)
[2017-06-03] MEDS: Sodium Chloride 0.9% 10 ML Syringe FLUSH SCH ×2 (16:42→17:28)
[2017-06-04] MEDS: Omeprazole 20 MG Cap.CR PO SCH (06:13)
[2017-06-04] MEDS: metroNIDAZOLE 500 MG Tab PO SCH ×3 (06:13→21:09)
[2017-06-04] MEDS: Insulin Regular, Human 100 Units/ML 10 ML Vial SUBCUT SCH ×4 (07:38→21:10)
[2017-06-04] MEDS: Losartan 50 MG Tab PO SCH ×2 (08:11→21:08)
[2017-06-04] MEDS: Calcium Citrate/Vitamin D3 315 MG-250 Unit Tab PO SCH ×2 (08:11→17:31)
[2017-06-04] MEDS: metFORMIN 500 MG Tab PO SCH ×2 (08:11→17:31)
[2017-06-04] MEDS: Multivitamins with Minerals/Iron/Folic Acid/Lycopene Tab PO SCH (08:11)
[2017-06-04] MEDS: Aspirin 325 MG Tab.EC PO SCH (08:12)
[2017-06-04] MEDS: Potassium Chloride 10 MEQ Tab.ER PO SCH ×2 (08:12→21:08)
[2017-06-04] MEDS: Insulin Detemir 100 Units/ML 3 ML Pen SUBCUT SCH ×2 (08:12→21:09)
[2017-06-04] MEDS: Hydrochlorothiazide 25 MG Tab PO SCH (08:12)
[2017-06-04] MEDS: Famotidine 20 MG Tab PO SCH ×2 (08:13→21:09)
[2017-06-04] MEDS: Escitalopram 10 MG Tab PO SCH (08:13)
[2017-06-04] MEDS: Nystatin Topical Powder 15 GM Bottle TOP SCH ×2 (08:13→21:12)
[2017-06-04] MEDS: B.Bifidum/B.Longum/L.Acidophilus/L.Rhamnosus (Probiotic) Cap PO SCH (08:13)
[2017-06-04] MEDS: Zinc (Zinc Gluconate) 50 MG Tab PO SCH (08:14)
[2017-06-04] MEDS: Liraglutide (rDNA Origin) 0.6 MG/0.1 ML 3 ML Pen SUBCUT SCH (08:14)
[2017-06-04] MEDS: Acetaminophen 325 MG Tab PO SCH ×3 (08:16→21:09)
[2017-06-04] MEDS: Enoxaparin 40 MG/0.4 ML Syringe SUBCUT SCH (12:01)
[2017-06-04] MEDS: Sodium Chloride 0.9% 10 ML Syringe FLUSH SCH ×2 (17:30→18:20)
[2017-06-04] MEDS: DAPTOmycin 800 MG in Sodium Chloride 0.9% 50 ML IV SCH (17:30)
[2017-06-04] MEDS: Sodium Chloride 0.9% 100 ML IV SCH (17:30)
[2017-06-05] MEDS: Omeprazole 20 MG Cap.CR PO SCH (06:10)
[2017-06-05] MEDS: metroNIDAZOLE 500 MG Tab PO SCH ×3 (06:10→21:00)
[2017-06-05] MEDS: Insulin Regular, Human 100 Units/ML 10 ML Vial SUBCUT SCH ×4 (07:57→20:51)
[2017-06-05] MEDS: Liraglutide (rDNA Origin) 0.6 MG/0.1 ML 3 ML Pen SUBCUT SCH (08:22)
[2017-06-05] MEDS: Zinc (Zinc Gluconate) 50 MG Tab PO SCH (08:22)
[2017-06-05] MEDS: Acetaminophen 325 MG Tab PO SCH ×2 (08:23→14:49)
[2017-06-05] MEDS: Famotidine 20 MG Tab PO SCH ×2 (08:23→20:55)
[2017-06-05] MEDS: Insulin Detemir 100 Units/ML 3 ML Pen SUBCUT SCH ×2 (08:24→20:56)
[2017-06-05] MEDS: Escitalopram 10 MG Tab PO SCH (08:24)
[2017-06-05] MEDS: Nystatin Topical Powder 15 GM Bottle TOP SCH (08:24)
[2017-06-05] MEDS: Hydrochlorothiazide 25 MG Tab PO SCH (08:25)
[2017-06-05] MEDS: Aspirin 325 MG Tab.EC PO SCH (08:25)
[2017-06-05] MEDS: Multivitamins with Minerals/Iron/Folic Acid/Lycopene Tab PO SCH (08:25)
[2017-06-05] MEDS: Potassium Chloride 10 MEQ Tab.ER PO SCH ×2 (08:25→20:55)
[2017-06-05] MEDS: metFORMIN 500 MG Tab PO SCH ×2 (08:26→18:00)
[2017-06-05] MEDS: Calcium Citrate/Vitamin D3 315 MG-250 Unit Tab PO SCH ×2 (08:26→18:00)
[2017-06-05] MEDS: B.Bifidum/B.Longum/L.Acidophilus/L.Rhamnosus (Probiotic) Cap PO SCH (08:27)
[2017-06-05] MEDS: Losartan 50 MG Tab PO SCH ×2 (08:27→20:54)
[2017-06-05] MEDS: DAPTOmycin 800 MG in Sodium Chloride 0.9% 50 ML IV SCH (16:26)
[2017-06-05] MEDS: Sodium Chloride 0.9% 10 ML Syringe FLUSH SCH ×2 (16:27→18:30)
[2017-06-05] MEDS: Sodium Chloride 0.9% 100 ML IV SCH (16:34)
[2017-06-06] MEDS: Omeprazole 20 MG Cap.CR PO SCH (06:26)
[2017-06-06] MEDS: metroNIDAZOLE 500 MG Tab PO SCH ×3 (06:26→21:01)
[2017-06-06] MEDS: Insulin Regular, Human 100 Units/ML 10 ML Vial SUBCUT SCH ×4 (07:35→21:07)
[2017-06-06] MEDS: Multivitamins with Minerals/Iron/Folic Acid/Lycopene Tab PO SCH (08:02)
[2017-06-06] MEDS: Calcium Citrate/Vitamin D3 315 MG-250 Unit Tab PO SCH ×2 (08:02→17:27)
[2017-06-06] MEDS: Potassium Chloride 10 MEQ Tab.ER PO SCH ×2 (08:03→21:01)
[2017-06-06] MEDS: Escitalopram 10 MG Tab PO SCH (08:03)
[2017-06-06] MEDS: B.Bifidum/B.Longum/L.Acidophilus/L.Rhamnosus (Probiotic) Cap PO SCH (08:03)
[2017-06-06] MEDS: Famotidine 20 MG Tab PO SCH ×2 (08:03→21:01)
[2017-06-06] MEDS: metFORMIN 500 MG Tab PO SCH ×2 (08:03→17:27)
[2017-06-06] MEDS: Aspirin 325 MG Tab.EC PO SCH (08:04)
[2017-06-06] MEDS: Zinc (Zinc Gluconate) 50 MG Tab PO SCH (08:04)
[2017-06-06] MEDS: Rosuvastatin 10 MG Tab PO SCH (08:04)
[2017-06-06] MEDS: Hydrochlorothiazide 25 MG Tab PO SCH (08:06)
[2017-06-06] MEDS: Losartan 50 MG Tab PO SCH ×2 (08:07→21:01)
[2017-06-06] MEDS: Liraglutide (rDNA Origin) 0.6 MG/0.1 ML 3 ML Pen SUBCUT SCH (08:07)
[2017-06-06] MEDS: Insulin Detemir 100 Units/ML 3 ML Pen SUBCUT SCH ×2 (08:11→21:05)
[2017-06-06] MEDS: Sodium Chloride 0.9% 10 ML Syringe FLUSH SCH ×2 (16:56→17:44)
[2017-06-06] MEDS: DAPTOmycin 800 MG in Sodium Chloride 0.9% 50 ML IV SCH (16:56)
[2017-06-06] MEDS: Sodium Chloride 0.9% 100 ML IV SCH (16:56)
[2017-06-07] MEDS: metroNIDAZOLE 500 MG Tab PO SCH ×3 (06:00→21:27)
[2017-06-07] MEDS: Omeprazole 20 MG Cap.CR PO SCH (07:00)
[2017-06-07] MEDS: Insulin Regular, Human 100 Units/ML 10 ML Vial SUBCUT SCH ×4 (07:30→21:31)
[2017-06-07] MEDS: Aspirin 325 MG Tab.EC PO SCH (08:05)
[2017-06-07] MEDS: Multivitamins with Minerals/Iron/Folic Acid/Lycopene Tab PO SCH (08:05)
[2017-06-07] MEDS: Liraglutide (rDNA Origin) 0.6 MG/0.1 ML 3 ML Pen SUBCUT SCH (08:05)
[2017-06-07] MEDS: Rosuvastatin 10 MG Tab PO SCH (08:05)
[2017-06-07] MEDS: Zinc (Zinc Gluconate) 50 MG Tab PO SCH (08:05)
[2017-06-07] MEDS: Losartan 50 MG Tab PO SCH ×2 (08:05→21:23)
[2017-06-07] MEDS: Hydrochlorothiazide 25 MG Tab PO SCH (08:05)
[2017-06-07] MEDS: Calcium Citrate/Vitamin D3 315 MG-250 Unit Tab PO SCH ×2 (08:05→17:32)
[2017-06-07] MEDS: Potassium Chloride 10 MEQ Tab.ER PO SCH ×2 (08:05→21:27)
[2017-06-07] MEDS: B.Bifidum/B.Longum/L.Acidophilus/L.Rhamnosus (Probiotic) Cap PO SCH (08:05)
[2017-06-07] MEDS: Insulin Detemir 100 Units/ML 3 ML Pen SUBCUT SCH ×2 (08:05→21:29)
[2017-06-07] MEDS: Escitalopram 10 MG Tab PO SCH (08:05)
[2017-06-07] MEDS: Famotidine 20 MG Tab PO SCH ×2 (08:05→21:27)
[2017-06-07] MEDS: metFORMIN 500 MG Tab PO SCH ×2 (08:05→17:32)
--- NOTE | 2017-06-07 09:43 | PCM.PN ---
- General Info Date of Service: 06/07/17 Functional Status: Reports: Pain Controlled, Tolerating Diet (Patient was placed on reduce caloric intake upon admission has lost weight, reports early saity ) - Review of Systems General: Denies: Fever, Weakness, Fatigue, Appetite (early ite ) HEENT: Reports: No Symptoms Pulmonary: Reports: No Symptoms Cardiovascular: Reports: No Symptoms Gastrointestinal: Reports: No Symptoms Genitourinary: Reports: No Symptoms Musculoskeletal: Reports: No Symptoms Skin: Reports: Other (Peeling skin). Denies: Pruritis, Rash Neurological: Reports: No Symptoms Psychiatric: Reports: No Symptoms - Patient Data Vitals - Most Recent: Last Vital Signs Temp 96.7 F 06/07/17 07:00 Pulse 78 06/07/17 07:00 Resp 18 06/07/17 07:00 BP 104/63 06/07/17 08:05 Pulse Ox 96 06/07/17 07:00 Weight - Most Recent: 275 lb 12.8 oz I&O - Last 24 Hours: Intake & Output 06/06/17 06/07/17 06/07/17 22:59 06:59 14:59 Intake Total 981 50 Output Total 700 Balance 981 -650 Lab Results Last 24 Hours: Laboratory Results - last 24 hr 06/06/17 06/06/17 06/06/17 Range/Units 11:32 17:23 21:00 POC Glucose 183 H 158 H 163 H (74-106) mg/dl 06/07/17 Range/Units 06:49 POC Glucose 130 H (74-106) mg/dl Med Orders - Current: Current Medications Acetaminophen (Tylenol) 650 mg PO TID PRN PRN Reason: Pain Aspirin (Ecotrin) 325 mg PO DAILY [facility] Last Admin: 06/07/17 08:05 Dose: 325 mg Calcium Citrate (Calcium Citrate + D) 2 tab PO BIDMEALS [facility] Last Admin: 06/07/17 08:05 Dose: 2 tab Escitalopram Oxalate (Lexapro) 10 mg PO DAILY [facility] Last Admin: 06/07/17 08:05 Dose: 10 mg Famotidine (Pepcid) 20 mg PO BID [facility] Last Admin: 06/07/17 08:05 Dose: 20 mg Hydrochlorothiazide (Hydrochlorothiazide) 25 mg PO DAILY [facility] Last Admin: 06/07/17 08:05 Dose: 25 mg Daptomycin 800 mg/ Sodium (Chloride) 66 mls @ 132 mls/hr IV Q24H [facility] Last Admin: 06/06/17 16:56 Dose: 132 mls/hr Sodium Chloride (Normal Saline) 100 mls @ 50 mls/hr IV 1700 [facility] Last Admin: 06/06/17 16:56 Dose: 50 mls/hr Insulin Detemir (Levemir) 0 unit SUBCUT BID [facility] Last Admin: 06/07/17 08:05 Dose: 33 units Insulin Human Regular (Novolin R) 0 unit SUBCUT 0730,1130,1730,2100 [facility] PRN Reason: Protocol Last Admin: 06/07/17 07:30 Dose: Not Given Lactobacillus Acidophilus/Rhamnosus (Multi-Lina Plus) 1 cap PO DAILY [facility] Last Admin: 06/07/17 08:05 Dose: 1 cap Liraglutide (Victoza) 0 mg SUBCUT DAILY [facility] Last Admin: 06/07/17 08:05 Dose: 1.8 mg Loperamide HCl (Imodium) 2 mg PO Q6H PRN PRN Reason: Diarrhea Last Admin: 05/18/17 06:13 Dose: 2 mg Losartan Potassium (Cozaar) 50 mg PO BID [facility] Last Admin: 06/07/17 08:05 Dose: 50 mg Metformin HCl (Glucophage) 1,000 mg PO BIDMEALS [facility] Last Admin: 06/07/17 08:05 Dose: 1,000 mg Metronidazole (Flagyl) 500 mg PO Q8HR [facility] Last Admin: 06/07/17 06:00 Dose: 500 mg Multivitamins/Minerals (Centrum) 1 tab PO DAILY [facility] Last Admin: 06/07/17 08:05 Dose: 1 tab Omeprazole (Omeprazole) 20 mg PO ACBREAKFAST [facility] Last Admin: 06/07/17 07:00 Dose: 20 mg Potassium Chloride (Klor-Con 10) 10 meq PO BID [facility] Last Admin: 06/07/17 08:05 Dose: 10 meq Rosuvastatin Calcium (Crestor) 5 mg PO DAILY [facility] Last Admin: 06/07/17 08:05 Dose: 5 mg Sodium Chloride (Saline Flush) 10 ml FLUSH 1700,1800 [facility] Last Admin: 06/06/17 17:44 Dose: 10 ml Zinc Gluconate (Zinc) 50 mg PO DAILY [facility] Last Admin: 06/07/17 08:05 Dose: 50 mg Discontinued Medications Acetaminophen (Tylenol) 650 mg PO TID [facility] Last Admin: 06/05/17 14:49 Dose: 650 mg Ceftriaxone Sodium (Rocephin) 2 gm IV Q24H [facility] Last Admin: 05/11/17 16:59 Dose: Not Given Ceftriaxone Sodium (Rocephin) 2 gm IV Q24H [facility] Last Admin: 05/15/17 13:29 Dose: Not Given Cetirizine HCl (Zyrtec) 10 mg PO DAILY [facility] Last Admin: 05/23/17 09:37 Dose: 10 mg Diphenhydramine HCl (Benadryl) 25 mg PO ONETIME ONE Stop: 05/19/17 08:59 Last Admin: 05/19/17 09:39 Dose: 25 mg Diphenhydramine HCl (Benadryl) 50 mg PO ONETIME ONE Stop: 05/19/17 21:09 Last Admin: 05/19/17 21:21 Dose: 50 mg Diphenhydramine HCl (Benadryl) 25 mg PO Q8H [facility] Last Admin: 05/24/17 14:18 Dose: Not Given Diphenhydramine HCl (Benadryl) 25 mg PO Q8H PRN PRN Reason: itching and rash Last Admin: 05/27/17 08:34 Dose: 25 mg Enoxaparin Sodium (Lovenox) 40 mg SUBCUT Q24H [facility] Last Admin: 05/14/17 11:18 Dose: 40 mg Enoxaparin Sodium (Lovenox) 40 mg SUBCUT 1100 [facility] Last Admin: 06/04/17 12:01 Dose: 40 mg Famotidine (Pepcid) 20 mg PO ONETIME ONE Stop: 05/19/17 08:59 Last Admin: 05/19/17 09:38 Dose: 20 mg Fondaparinux (Arixtra) 2.5 mg SUBCUT Q24H [facility] Last Admin: 05/12/17 10:53 Dose: Not Given Hydrocortisone (Hydrocortisone 1% Crm) 0 gm TOP BID PRN PRN Reason: itch Last Admin: 05/28/17 18:20 Dose: 1 applic Hydroxyzine HCl (Atarax) 25 mg PO ONETIME ONE Stop: 05/20/17 20:31 Last Admin: 05/20/17 20:55 Dose: 25 mg Hydroxyzine HCl (Atarax) 25 mg PO ONETIME ONE Stop: 05/21/17 18:01 Last Admin: 05/21/17 18:01 Dose: 25 mg Hydroxyzine Pamoate (Vistaril) 25 mg PO Q6H [facility] Last Admin: 05/27/17 19:32 Dose: Not Given Hydroxyzine Pamoate (Vistaril) 25 mg PO Q6H [facility] Last Admin: 05/31/17 11:27 Dose: Not Given Vancomycin HCl 2 gm/ Sodium (Chloride) 540 mls @ 170 mls/hr IV Q12H [facility] Last Admin: 05/17/17 12:53 Dose: Not Given Sodium Chloride (Normal Saline) 250 mls @ 20 mls/hr IV DAILY@1200 [facility] Last Admin: 05/17/17 12:54 Dose: Not Given Vancomycin HCl 1.75 gm/ Sodium (Chloride) 285 mls @ 103 mls/hr IV Q12H [facility] Last Admin: 05/19/17 07:45 Dose: Not Given Sodium Chloride (Normal Saline) 250 mls @ 20 mls/hr IV DAILY@1900 [facility] Last Admin: 05/18/17 18:29 Dose: 20 mls/hr Vancomycin HCl 1.75 gm/ Sodium (Chloride) 250 mls @ 100 mls/hr IV Q24H [facility] Last Admin: 05/20/17 10:12 Dose: 100 mls/hr Sodium Chloride (Normal Saline) 250 mls @ 50 mls/hr IV 0700 [facility] Last Admin: 05/22/17 06:14 Dose: Not Given Sodium Chloride (Normal Saline) 500 mls @ 999 mls/hr IV .BOLUS [facility] Last Admin: 05/19/17 21:21 Dose: 999 mls/hr Vancomycin HCl 1.75 gm/ Sodium (Chloride) 250 mls @ 100 mls/hr IV Q18H [facility] Last Admin: 05/21/17 00:36 Dose: 100 mls/hr Daptomycin 500 mg/ Sodium (Chloride) 50 mls @ 100 mls/hr IV Q24H [facility] Stop: 06/04/17 11:31 Last Admin: 05/28/17 18:44 Dose: Not Given Sodium Chloride (Normal Saline) 250 mls @ 50 mls/hr IV 1100 [facility] Last Admin: 05/22/17 11:47 Dose: Not Given Sodium Chloride (Normal Saline) 100 mls @ 50 mls/hr IV 1100 [facility] Last Admin: 05/28/17 18:15 Dose: 50 mls/hr Daptomycin 800 mg/ Sodium (Chloride) 66 mls @ 132 mls/hr IV Q24H [facility] Last Admin: 05/28/17 18:44 Dose: Not Given Daptomycin 800 mg/ Sodium (Chloride) 66 mls @ 132 mls/hr IV Q24H [facility] Last Admin: 05/31/17 18:22 Dose: 132 mls/hr Sodium Chloride (Normal Saline) 100 mls @ 50 mls/hr IV 1100 [facility] Last Admin: 05/30/17 13:25 Dose: Not Given Sodium Chloride (Normal Saline) 100 mls @ 50 mls/hr IV 1800 [facility] Last Admin: 05/31/17 18:25 Dose: 50 mls/hr Insulin Human Regular (Novolin R) 0 unit SUBCUT QIDACANDBED [facility] PRN Reason: Protocol Last Admin: 05/14/17 17:26 Dose: Not Given Insulin Human Regular (Novolin R) 0 unit SUBCUT 0730,1200,1800,2100 [facility] PRN Reason: Protocol Last Admin: 06/05/17 07:57 Dose: 3 unit Lactobacillus Acidophilus/Rhamnosus (Multi-Lina Plus) 1 cap PO DAILY [facility] Last Admin: 05/24/17 09:09 Dose: 1 cap Lactobacillus Acidophilus/Rhamnosus (Multi-Lina Plus) 1 cap PO DAILY@1800 [facility] Last Admin: 05/27/17 17:50 Dose: 1 cap Metronidazole (Flagyl) 500 mg PO TID [facility] Last Admin: 05/23/17 09:35 Dose: 500 mg Nystatin (Nystop) 0 gm TOP BID [facility] Last Admin: 06/05/17 08:24 Dose: 1 applic Omeprazole (Omeprazole) 20 mg PO DAILY [facility] Last Admin: 05/21/17 08:26 Dose: 20 mg Polyethylene Glycol (Miralax) 17 gm PO DAILY PRN PRN Reason: Constipation Prednisone (Prednisone) 40 mg PO ONETIME ONE Stop: 05/20/17 09:17 Last Admin: 05/20/17 10:08 Dose: 40 mg Prednisone (Prednisone) 40 mg PO ONETIME ONE Stop: 05/22/17 18:01 Prednisone (Prednisone) 40 mg PO ONETIME ONE Stop: 05/21/17 18:01 Last Admin: 05/21/17 18:02 Dose: 40 mg Prednisone (Prednisone) 40 mg PO ONETIME ONE Stop: 05/23/17 13:21 Last Admin: 05/23/17 14:08 Dose: 40 mg Sodium Chloride (Saline Flush) 10 ml FLUSH DAILY [facility] Last Admin: 05/12/17 11:23 Dose: 10 ml Sodium Chloride (Normal Saline) 10 ml FLUSH Q24H [facility] Last Admin: 05/12/17 11:10 Dose: 10 ml Sodium Chloride (Normal Saline) 10 ml FLUSH Q8HR [facility] Last Admin: 05/13/17 06:34 Dose: 10 ml Sodium Chloride (Saline Flush) 10 ml FLUSH DAILY [facility] Last Admin: 05/14/17 09:00 Dose: 10 ml Sodium Chloride (Saline Flush) 10 ml FLUSH 1100 [facility] Last Admin: 05/15/17 13:29 Dose: Not Given Sodium Chloride (Saline Flush) 10 ml FLUSH 0000,0200,1200,1400 [facility] Last Admin: 05/17/17 12:55 Dose: Not Given Sodium Chloride (Saline Flush) 10 ml FLUSH 0700,1000,1900,2200 [facility] Last Admin: 05/19/17 09:38 Dose: Not Given Sodium Chloride (Normal Saline) 10 ml FLUSH 0700,1000 [facility] Last Admin: 05/22/17 06:13 Dose: Not Given Sodium Chloride (Saline Flush) 10 ml FLUSH 0700,1000 [facility] Last Admin: 05/22/17 11:47 Dose: Not Given Sodium Chloride (Saline Flush) 10 ml FLUSH 1100,1200 [facility] Last Admin: 05/29/17 11:12 Dose: Not Given Sodium Chloride (Saline Flush) 10 ml FLUSH DAILY@2359 [facility] Last Admin: 05/25/17 06:16 Dose: Not Given Sodium Chloride (Saline Flush) 10 ml FLUSH 1800,1900 [facility] Last Admin: 05/31/17 18:35 Dose: 10 ml Vancomycin HCl (Pharmacy To Dose - Vancomycin) 1 dose .XX ASDIRECTED [facility] - Exam Quality Assessment: No: Supplemental Oxygen General: Alert, Oriented, Cooperative Neck: Supple Lungs: Clear to Auscultation, Normal Respiratory Effort Cardiovascular: Regular Rate, Regular Rhythm GI/Abdominal Exam: Normal Bowel Sounds, Soft, Non-Tender, No Organomegaly, No Distention, No Abnormal Bruit, No Mass, Pelvis Stable Extremities: No Pedal Edema, Other Skin: Other (No rash, peeling skin, wound VAC left foot) Wound/Incisions: Other (Wound VAC left foot, reports healing well,) Neurological: No New Focal Deficit Psy/Mental Status: Alert, Normal Affect, Normal Mood - Problem List Review Problem List Initiated/Reviewed/Updated: Yes - My Orders Last 24 Hours: My Active Orders 06/08/17 06:00 ALANINE AMINOTRANSFERASE,ALT [CHEM] WEEKLY CBC WITH AUTO DIFF [HEME] WEEKLY CREATININE W/GFR [CHEM] WEEKLY CRP [C-REACTIVE PROTEIN] [CHEM] Routine SEDIMENTATION RATE MANUAL [HEME] Routine - Plan Plan:: BRIEF HISTORY 56-year-old gentleman with long-standing diabetes mellitus continues in swing bed status for wound VAC therapy due to a left diabetic foot ulcer. Patient underwent left foot irrigation and debridement with excision of nonviable soft tissue and bone with wound VAC placement by Dr. Barrow in [facility]. He is currently receiving IV Daptomycin antibiotics via PICC line due to MRSA. He had a negative MRI for osteomyelitis. Appears that patient had a significant multibiliform allergic reaction to vancomycin and I had switched him to daptomycin. He was subsequently seen in [place] and evaluated by livestock broker Dr. Dr. Barrow since and the Daptomycin dosage was increased. He remains on oral Flagyl. He continues with wound VAC therapy and is now back in his offloading [place] shoe. Full CODE STATUS Impression/plan S/P irrigation and debridement, left infected diabetic foot ulcer. Continue wound vac change every M//--running on continuous 125 mmHg daily. Likely will be sent home early next week for outpatient wound VAC dressing changes. Continue with PICC line for Daptomycin IV antibiotics--dosage recently increased. Continue PO flagyl. Must wear offloading [place] shoe to left foot/ limb. Continue physical therapy. Continue multivitamin and zinc. Surveillance labs ordered. Anemia, normocytic, normochromic, no anisocytosis. Most likely ACD. Will continue to monitor. SECONDARY ASSESSMENT/PLAN Diabetes mellitus, T2. continue lantus BID and SS. Continue metformin and victoza. Due for A1c, has had improved glycemic control. Hypertension, stable. Continue losartan and HCTZ. History of MRSA. In-house cultures negative, however [place] cultures reveal rare staphylococcus aureus (MRSA). Esophageal reflux. Appears on both H2 and PPI. We'll attempt to reduce a PPI on discharge. Hyperlipidemia, mixed, on statin therapy. No myalgias Depression. Stable, Continue lexapro. No current psychotic features--although this summer did have numerous breakdown Obesity, morbid. Continue with reduced caloric intake--has had some weight loss. Continue multivitamin and zinc. DVT prophylaxis. now more ambulatory, discontinued Lovenox. On aspirin therapy. Disposition, continue with physical therapy, wound VAC, appointment [facility] Sunday, surveillance labs pending, likely may be discharged early next week with plan on outpatient wound VAC therapy and PT. Ambulatory only with offloading [place]
[2017-06-07] MEDS: Sodium Chloride 0.9% 100 ML IV SCH (17:31)
[2017-06-07] MEDS: DAPTOmycin 800 MG in Sodium Chloride 0.9% 50 ML IV SCH (17:31)
[2017-06-07] MEDS: Sodium Chloride 0.9% 10 ML Syringe FLUSH SCH ×2 (17:31→18:19)
[2017-06-08] MEDS: metroNIDAZOLE 500 MG Tab PO SCH ×3 (06:11→21:21)
[2017-06-08] MEDS: Omeprazole 20 MG Cap.CR PO SCH (06:11)
[2017-06-08] MEDS: Insulin Regular, Human 100 Units/ML 10 ML Vial SUBCUT SCH ×4 (07:56→21:27)
[2017-06-08] MEDS: metFORMIN 500 MG Tab PO SCH ×2 (07:59→17:37)
[2017-06-08] MEDS: Calcium Citrate/Vitamin D3 315 MG-250 Unit Tab PO SCH ×2 (08:00→17:37)
[2017-06-08] MEDS: Multivitamins with Minerals/Iron/Folic Acid/Lycopene Tab PO SCH (08:18)
[2017-06-08] MEDS: Losartan 50 MG Tab PO SCH ×2 (08:18→21:21)
[2017-06-08] MEDS: Rosuvastatin 10 MG Tab PO SCH (08:19)
[2017-06-08] MEDS: Hydrochlorothiazide 25 MG Tab PO SCH (08:20)
[2017-06-08] MEDS: Aspirin 325 MG Tab.EC PO SCH (08:20)
[2017-06-08] MEDS: Potassium Chloride 10 MEQ Tab.ER PO SCH ×2 (08:20→21:20)
[2017-06-08] MEDS: Famotidine 20 MG Tab PO SCH ×2 (08:21→21:32)
[2017-06-08] MEDS: Zinc (Zinc Gluconate) 50 MG Tab PO SCH (08:21)
[2017-06-08] MEDS: Escitalopram 10 MG Tab PO SCH (08:21)
[2017-06-08] MEDS: B.Bifidum/B.Longum/L.Acidophilus/L.Rhamnosus (Probiotic) Cap PO SCH (08:21)
[2017-06-08] MEDS: Liraglutide (rDNA Origin) 0.6 MG/0.1 ML 3 ML Pen SUBCUT SCH (08:22)
[2017-06-08] MEDS: Insulin Detemir 100 Units/ML 3 ML Pen SUBCUT SCH ×2 (08:23→21:27)
[2017-06-08] MEDS: DAPTOmycin 800 MG in Sodium Chloride 0.9% 50 ML IV SCH (17:19)
[2017-06-08] MEDS: Sodium Chloride 0.9% 10 ML Syringe FLUSH SCH ×2 (17:20→18:10)
[2017-06-08] MEDS: Sodium Chloride 0.9% 100 ML IV SCH (17:25)
[2017-06-09] MEDS: metroNIDAZOLE 500 MG Tab PO SCH ×3 (06:12→21:10)
[2017-06-09] MEDS: Omeprazole 20 MG Cap.CR PO SCH (06:12)
[2017-06-09] MEDS: Insulin Regular, Human 100 Units/ML 10 ML Vial SUBCUT SCH ×4 (06:31→21:08)
[2017-06-09] MEDS: Calcium Citrate/Vitamin D3 315 MG-250 Unit Tab PO SCH ×2 (08:09→19:22)
[2017-06-09] MEDS: metFORMIN 500 MG Tab PO SCH ×2 (08:10→19:22)
[2017-06-09] MEDS: Rosuvastatin 10 MG Tab PO SCH (08:11)
[2017-06-09] MEDS: Losartan 50 MG Tab PO SCH ×2 (08:11→21:08)
[2017-06-09] MEDS: Multivitamins with Minerals/Iron/Folic Acid/Lycopene Tab PO SCH (08:11)
[2017-06-09] MEDS: Insulin Detemir 100 Units/ML 3 ML Pen SUBCUT SCH ×2 (08:12→21:33)
[2017-06-09] MEDS: Potassium Chloride 10 MEQ Tab.ER PO SCH ×2 (08:12→21:08)
[2017-06-09] MEDS: Aspirin 325 MG Tab.EC PO SCH (08:12)
[2017-06-09] MEDS: Hydrochlorothiazide 25 MG Tab PO SCH (08:12)
[2017-06-09] MEDS: Escitalopram 10 MG Tab PO SCH (08:13)
[2017-06-09] MEDS: Famotidine 20 MG Tab PO SCH ×2 (08:13→21:08)
[2017-06-09] MEDS: B.Bifidum/B.Longum/L.Acidophilus/L.Rhamnosus (Probiotic) Cap PO SCH (08:13)
[2017-06-09] MEDS: Liraglutide (rDNA Origin) 0.6 MG/0.1 ML 3 ML Pen SUBCUT SCH (08:14)
[2017-06-09] MEDS: Zinc (Zinc Gluconate) 50 MG Tab PO SCH (08:14)
[2017-06-09] MEDS: Acetaminophen 325 MG Tab PO PRN (17:00)
[2017-06-09] MEDS: DAPTOmycin 800 MG in Sodium Chloride 0.9% 50 ML IV SCH (17:01)
[2017-06-09] MEDS: Sodium Chloride 0.9% 10 ML Syringe FLUSH SCH ×2 (18:35→19:22)
[2017-06-09] MEDS: Sodium Chloride 0.9% 100 ML IV SCH (18:36)
[2017-06-09] MEDS ORDERED: Ondansetron 4 MG/2 ML SDV IVPUSH SCH (21:15)
[2017-06-09] MEDS: Ondansetron 4 MG/2 ML SDV IVPUSH PRN (21:30)
[2017-06-10] MEDS: Ondansetron 4 MG/2 ML SDV IVPUSH PRN (06:13)
[2017-06-10] MEDS: Acetaminophen 325 MG Tab PO PRN ×3 (06:17→18:39)
[2017-06-10] MEDS: Omeprazole 20 MG Cap.CR PO SCH (06:17)
[2017-06-10] MEDS: metroNIDAZOLE 500 MG Tab PO SCH ×3 (06:18→21:16)
[2017-06-10] MEDS: metFORMIN 500 MG Tab PO SCH ×2 (08:53→18:32)
[2017-06-10] MEDS ORDERED: Promethazine 25 MG/ML SDV IM PRN (10:41)
[2017-06-10] MEDS ORDERED: Sodium Chloride 0.9% 1,000 ML IV SCH (10:45)
--- NOTE | 2017-06-10 10:45 | PCM.PN ---
- General Info Date of Service: 06/10/17 Subjective Update: Last evening, Mr. Huertas developed some generalized abdominal pain associated with nausea and vomiting after eating dinner. Zofran was given with improvement , but he was fairly restless and uncomfortable during the night. 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 This morning, he did have about 3/4 of his breakfast, but continues to feel mildly ill. He had a formed stool this morning. No other concerns, including any fever, chills , cough, shortness of breath, localized abdominal pain, dysuria, or rash. - Patient Data Vitals - Most Recent: Last Vital Signs Temp 37.8 C 06/10/17 06:25 Pulse 110 H 06/10/17 06:25 Resp 20 06/10/17 06:25 BP 130/75 06/10/17 06:25 Pulse Ox 96 06/10/17 06:25 Weight - Most Recent: 125.101 kg I&O - Last 24 Hours: Intake & Output 06/09/17 06/10/17 06/10/17 22:59 06:59 14:59 Intake Total 186 300 Output Total 1000 400 Balance -814 -100 Lab Results Last 24 Hours: Laboratory Results - last 24 hr 06/09/17 06/09/17 06/09/17 Range/Units 11:49 17:52 21:28 POC Glucose 167 H 153 H 153 H (74-106) mg/dl 06/10/17 06/10/17 Range/Units 06:21 10:17 POC Glucose 172 H 309 H (74-106) mg/dl Med Orders - Current: Current Medications Acetaminophen (Tylenol) 650 mg PO TID PRN PRN Reason: Pain Last Admin: 06/10/17 06:17 Dose: 650 mg Aspirin (Ecotrin) 325 mg PO DAILY [facility] Last Admin: 06/09/17 08:12 Dose: 325 mg Calcium Citrate (Calcium Citrate + D) 2 tab PO BIDMEALS [facility] Last Admin: 06/09/17 19:22 Dose: 2 tab Escitalopram Oxalate (Lexapro) 10 mg PO DAILY [facility] Last Admin: 06/09/17 08:13 Dose: 10 mg Famotidine (Pepcid) 20 mg PO BID [facility] Last Admin: 06/09/17 21:08 Dose: Not Given Hydrochlorothiazide (Hydrochlorothiazide) 25 mg PO DAILY [facility] Last Admin: 06/09/17 08:12 Dose: 25 mg Daptomycin 800 mg/ Sodium (Chloride) 66 mls @ 132 mls/hr IV Q24H [facility] Last Admin: 06/09/17 17:01 Dose: 132 mls/hr Sodium Chloride (Normal Saline) 100 mls @ 50 mls/hr IV 1700 [facility] Last Admin: 06/09/17 18:36 Dose: 50 mls/hr Sodium Chloride (Normal Saline) 1,000 mls @ 250 mls/hr IV ASDIRECTED [facility] Insulin Detemir (Levemir) 0 unit SUBCUT BID [facility] Last Admin: 06/09/17 21:33 Dose: Not Given Insulin Human Regular (Novolin R) 0 unit SUBCUT 0730,1130,1730,2100 [facility] PRN Reason: Protocol Last Admin: 06/09/17 21:08 Dose: Not Given Lactobacillus Acidophilus/Rhamnosus (Multi-Lina Plus) 1 cap PO DAILY [facility] Last Admin: 06/09/17 08:13 Dose: 1 cap Liraglutide (Victoza) 0 mg SUBCUT DAILY [facility] Last Admin: 06/09/17 08:14 Dose: 1.8 mg Loperamide HCl (Imodium) 2 mg PO Q6H PRN PRN Reason: Diarrhea Last Admin: 05/18/17 06:13 Dose: 2 mg Losartan Potassium (Cozaar) 50 mg PO BID [facility] Last Admin: 06/09/17 21:08 Dose: Not Given Metformin HCl (Glucophage) 1,000 mg PO BIDMEALS [facility] Last Admin: 06/10/17 08:53 Dose: 1,000 mg Metronidazole (Flagyl) 500 mg PO Q8HR [facility] Last Admin: 06/10/17 06:18 Dose: Not Given Multivitamins/Minerals (Centrum) 1 tab PO DAILY [facility] Last Admin: 06/09/17 08:11 Dose: 1 tab Omeprazole (Omeprazole) 20 mg PO ACBREAKFAST [facility] Last Admin: 06/10/17 06:17 Dose: 20 mg Ondansetron HCl (Zofran) 4 mg IVPUSH Q8H PRN PRN Reason: Nausea/Vomiting Last Admin: 06/10/17 06:13 Dose: 4 mg Potassium Chloride (Klor-Con 10) 10 meq PO BID [facility] Last Admin: 06/09/17 21:08 Dose: Not Given Rosuvastatin Calcium (Crestor) 5 mg PO DAILY [facility] Last Admin: 06/09/17 08:11 Dose: 5 mg Sodium Chloride (Saline Flush) 10 ml FLUSH 1700,1800 [facility] Last Admin: 06/09/17 19:22 Dose: 10 ml Zinc Gluconate (Zinc) 50 mg PO DAILY [facility] Last Admin: 06/09/17 08:14 Dose: 50 mg Discontinued Medications Acetaminophen (Tylenol) 650 mg PO TID [facility] Last Admin: 06/05/17 14:49 Dose: 650 mg Ceftriaxone Sodium (Rocephin) 2 gm IV Q24H [facility] Last Admin: 05/11/17 16:59 Dose: Not Given Ceftriaxone Sodium (Rocephin) 2 gm IV Q24H [facility] Last Admin: 05/15/17 13:29 Dose: Not Given Cetirizine HCl (Zyrtec) 10 mg PO DAILY [facility] Last Admin: 05/23/17 09:37 Dose: 10 mg Diphenhydramine HCl (Benadryl) 25 mg PO ONETIME ONE Stop: 05/19/17 08:59 Last Admin: 05/19/17 09:39 Dose: 25 mg Diphenhydramine HCl (Benadryl) 50 mg PO ONETIME ONE Stop: 05/19/17 21:09 Last Admin: 05/19/17 21:21 Dose: 50 mg Diphenhydramine HCl (Benadryl) 25 mg PO Q8H [facility] Last Admin: 05/24/17 14:18 Dose: Not Given Diphenhydramine HCl (Benadryl) 25 mg PO Q8H PRN PRN Reason: itching and rash Last Admin: 05/27/17 08:34 Dose: 25 mg Enoxaparin Sodium (Lovenox) 40 mg SUBCUT Q24H [facility] Last Admin: 05/14/17 11:18 Dose: 40 mg Enoxaparin Sodium (Lovenox) 40 mg SUBCUT 1100 [facility] Last Admin: 06/04/17 12:01 Dose: 40 mg Famotidine (Pepcid) 20 mg PO ONETIME ONE Stop: 05/19/17 08:59 Last Admin: 05/19/17 09:38 Dose: 20 mg Fondaparinux (Arixtra) 2.5 mg SUBCUT Q24H [facility] Last Admin: 05/12/17 10:53 Dose: Not Given Hydrocortisone (Hydrocortisone 1% Crm) 0 gm TOP BID PRN PRN Reason: itch Last Admin: 05/28/17 18:20 Dose: 1 applic Hydroxyzine HCl (Atarax) 25 mg PO ONETIME ONE Stop: 05/20/17 20:31 Last Admin: 05/20/17 20:55 Dose: 25 mg Hydroxyzine HCl (Atarax) 25 mg PO ONETIME ONE Stop: 05/21/17 18:01 Last Admin: 05/21/17 18:01 Dose: 25 mg Hydroxyzine Pamoate (Vistaril) 25 mg PO Q6H [facility] Last Admin: 05/27/17 19:32 Dose: Not Given Hydroxyzine Pamoate (Vistaril) 25 mg PO Q6H [facility] Last Admin: 05/31/17 11:27 Dose: Not Given Vancomycin HCl 2 gm/ Sodium (Chloride) 540 mls @ 170 mls/hr IV Q12H [facility] Last Admin: 05/17/17 12:53 Dose: Not Given Sodium Chloride (Normal Saline) 250 mls @ 20 mls/hr IV DAILY@1200 [facility] Last Admin: 05/17/17 12:54 Dose: Not Given Vancomycin HCl 1.75 gm/ Sodium (Chloride) 285 mls @ 103 mls/hr IV Q12H [facility] Last Admin: 05/19/17 07:45 Dose: Not Given Sodium Chloride (Normal Saline) 250 mls @ 20 mls/hr IV DAILY@1900 [facility] Last Admin: 05/18/17 18:29 Dose: 20 mls/hr Vancomycin HCl 1.75 gm/ Sodium (Chloride) 250 mls @ 100 mls/hr IV Q24H [facility] Last Admin: 05/20/17 10:12 Dose: 100 mls/hr Sodium Chloride (Normal Saline) 250 mls @ 50 mls/hr IV 0700 [facility] Last Admin: 05/22/17 06:14 Dose: Not Given Sodium Chloride (Normal Saline) 500 mls @ 999 mls/hr IV .BOLUS [facility] Last Admin: 05/19/17 21:21 Dose: 999 mls/hr Vancomycin HCl 1.75 gm/ Sodium (Chloride) 250 mls @ 100 mls/hr IV Q18H [facility] Last Admin: 05/21/17 00:36 Dose: 100 mls/hr Daptomycin 500 mg/ Sodium (Chloride) 50 mls @ 100 mls/hr IV Q24H [facility] Stop: 06/04/17 11:31 Last Admin: 05/28/17 18:44 Dose: Not Given Sodium Chloride (Normal Saline) 250 mls @ 50 mls/hr IV 1100 [facility] Last Admin: 05/22/17 11:47 Dose: Not Given Sodium Chloride (Normal Saline) 100 mls @ 50 mls/hr IV 1100 [facility] Last Admin: 05/28/17 18:15 Dose: 50 mls/hr Daptomycin 800 mg/ Sodium (Chloride) 66 mls @ 132 mls/hr IV Q24H [facility] Last Admin: 05/28/17 18:44 Dose: Not Given Daptomycin 800 mg/ Sodium (Chloride) 66 mls @ 132 mls/hr IV Q24H [facility] Last Admin: 05/31/17 18:22 Dose: 132 mls/hr Sodium Chloride (Normal Saline) 100 mls @ 50 mls/hr IV 1100 [facility] Last Admin: 05/30/17 13:25 Dose: Not Given Sodium Chloride (Normal Saline) 100 mls @ 50 mls/hr IV 1800 [facility] Last Admin: 05/31/17 18:25 Dose: 50 mls/hr Insulin Human Regular (Novolin R) 0 unit SUBCUT QIDACANDBED [facility] PRN Reason: Protocol Last Admin: 05/14/17 17:26 Dose: Not Given Insulin Human Regular (Novolin R) 0 unit SUBCUT 0730,1200,1800,2100 [facility] PRN Reason: Protocol Last Admin: 06/05/17 07:57 Dose: 3 unit Lactobacillus Acidophilus/Rhamnosus (Multi-Lina Plus) 1 cap PO DAILY [facility] Last Admin: 05/24/17 09:09 Dose: 1 cap Lactobacillus Acidophilus/Rhamnosus (Multi-Lina Plus) 1 cap PO DAILY@1800 [facility] Last Admin: 05/27/17 17:50 Dose: 1 cap Metronidazole (Flagyl) 500 mg PO TID [facility] Last Admin: 05/23/17 09:35 Dose: 500 mg Nystatin (Nystop) 0 gm TOP BID [facility] Last Admin: 06/05/17 08:24 Dose: 1 applic Omeprazole (Omeprazole) 20 mg PO DAILY [facility] Last Admin: 05/21/17 08:26 Dose: 20 mg Ondansetron HCl (Zofran) 4 mg IVPUSH Q8H [facility] Polyethylene Glycol (Miralax) 17 gm PO DAILY PRN PRN Reason: Constipation Prednisone (Prednisone) 40 mg PO ONETIME ONE Stop: 05/20/17 09:17 Last Admin: 05/20/17 10:08 Dose: 40 mg Prednisone (Prednisone) 40 mg PO ONETIME ONE Stop: 05/22/17 18:01 Prednisone (Prednisone) 40 mg PO ONETIME ONE Stop: 05/21/17 18:01 Last Admin: 05/21/17 18:02 Dose: 40 mg Prednisone (Prednisone) 40 mg PO ONETIME ONE Stop: 05/23/17 13:21 Last Admin: 05/23/17 14:08 Dose: 40 mg Sodium Chloride (Saline Flush) 10 ml FLUSH DAILY [facility] Last Admin: 05/12/17 11:23 Dose: 10 ml Sodium Chloride (Normal Saline) 10 ml FLUSH Q24H [facility] Last Admin: 05/12/17 11:10 Dose: 10 ml Sodium Chloride (Normal Saline) 10 ml FLUSH Q8HR [facility] Last Admin: 05/13/17 06:34 Dose: 10 ml Sodium Chloride (Saline Flush) 10 ml FLUSH DAILY [facility] Last Admin: 05/14/17 09:00 Dose: 10 ml Sodium Chloride (Saline Flush) 10 ml FLUSH 1100 [facility] Last Admin: 05/15/17 13:29 Dose: Not Given Sodium Chloride (Saline Flush) 10 ml FLUSH 0000,0200,1200,1400 [facility] Last Admin: 05/17/17 12:55 Dose: Not Given Sodium Chloride (Saline Flush) 10 ml FLUSH 0700,1000,1900,2200 [facility] Last Admin: 05/19/17 09:38 Dose: Not Given Sodium Chloride (Normal Saline) 10 ml FLUSH 0700,1000 [facility] Last Admin: 05/22/17 06:13 Dose: Not Given Sodium Chloride (Saline Flush) 10 ml FLUSH 0700,1000 [facility] Last Admin: 05/22/17 11:47 Dose: Not Given Sodium Chloride (Saline Flush) 10 ml FLUSH 1100,1200 [facility] Last Admin: 05/29/17 11:12 Dose: Not Given Sodium Chloride (Saline Flush) 10 ml FLUSH DAILY@2359 [facility] Last Admin: 05/25/17 06:16 Dose: Not Given Sodium Chloride (Saline Flush) 10 ml FLUSH 1800,1900 [facility] Last Admin: 05/31/17 18:35 Dose: 10 ml Vancomycin HCl (Pharmacy To Dose - Vancomycin) 1 dose .XX ASDIRECTED [facility] - Exam General: Alert, Oriented, Cooperative, Other (mildly uncomfortable appearing) HEENT: Other (mucous membranes mildly dry) Neck: Supple Lungs: Clear to Auscultation, Normal Respiratory Effort Cardiovascular: Regular Rate, Regular Rhythm GI/Abdominal Exam: Normal Bowel Sounds, Soft, Non-Tender, Other (central obesity ) Skin: Warm, Dry Psy/Mental Status: Alert, Normal Affect, Normal Mood - Problem List Review Problem List Initiated/Reviewed/Updated: Yes - My Orders Last 24 Hours: My Active Orders 06/09/17 21:12 Ondansetron [Zofran] 4 mg IVPUSH Q8H PRN 06/10/17 10:41 Promethazine [Phenergan] 12.5 mg IM Q4H PRN 06/10/17 10:45 Sodium Chloride 0.9% [Normal Saline] 1,000 ml IV ASDIRECTED - Assessment Assessment:: Mr. Huertas is a 56yoM with history significant for DMT2 admitted to swing bed status on 05/12/17 due to wound care of left infected diabetic foot ulcer for which he had I&D performed and wound vac placed by Dr. Barrow on 05/07/17 and now continues on IV daptomycin via PICC line due to MRSA following reaction to vancomycin. # Left diabetic foot ulcer: S/p irrigation and debridement on 05/07/[address] Barrow, podiatry, in [place], with next appointment on . Continue wound vac change every //--running on continuous 125 mmHg daily. Continue with IV daptomycin and oral Flagyl. Also continue lactobacillius due to mcfp antibiotic use. Pain controlled with Tylenol TID. Weekly CRP, ESR, CBC, and CMP due next on 06/15/17. Possible discharge to home in the coming days with outpatient antibiotic therapy, wound vac dressing changes, and physical therapy. # Limited mobility: Ongoing improvement with Daco allowing partial weight bearing and physical therapy. # Nausea, emesis and generalized abdominal pain: Onset approximately 12 hours ago with interval improvement, though with mild dehydration on exam. No concerning abdominal findings. No diarrhea to suggest C. dificile, though he is certainly at risk given termination clerk antibiotic use. Will give 1L NS and provide antiemetics as needed in addition to following closely. Consider repeat labs tomorrow morning if not improved. If diarrhea develops, will obtain stool testing for C. difficile and culture. Chronic medical conditions related to hospital management: # HTN: Stable. Continue losartan and HCTZ in addition to KCl supplementation. # HLD: Stable. Continue rosuvastatin and ASA. # GERD: Stable. Continue omeprazole. # DMT2: Stable with improved A1c of 6.6%. Given likely upcoming change in environment with discharge to home and no hypoglycemic episodes, will continue current regimen with metformin, Victoza, Lantus BID and sliding scale with QID BG checks. # Obesity, morbid: Continue reduced caloric diet and activity per physical therapy. # Anemia of chronic disease: Stable. # Depression: Stable. Continue Lexapro. Hospitalization details: # FEN: 1L NS today at 250cc/hr. IV daptomycin through PICC line, as above. Electrolytes normal last week; continue KCl supplementation, as above. Diabetic diet. # PPX: Ambulation for DVT ppx. # CODE: FULL CODE. # Disposition: Continue on swing bed. Anticipate possible discharge as early as 06/12/17 for outpatient antibiotic therapy, wound vac dressing changes, and physical therapy following podiatry appointment on 06/11/17.
[2017-06-10] MEDS: Insulin Regular, Human 100 Units/ML 10 ML Vial SUBCUT SCH ×4 (10:52→21:16)
[2017-06-10] MEDS: Losartan 50 MG Tab PO SCH ×2 (10:56→21:15)
[2017-06-10] MEDS: Calcium Citrate/Vitamin D3 315 MG-250 Unit Tab PO SCH ×2 (10:56→18:11)
[2017-06-10] MEDS: Multivitamins with Minerals/Iron/Folic Acid/Lycopene Tab PO SCH (10:56)
[2017-06-10] MEDS: Rosuvastatin 10 MG Tab PO SCH (10:57)
[2017-06-10] MEDS: Aspirin 325 MG Tab.EC PO SCH (10:57)
[2017-06-10] MEDS: Hydrochlorothiazide 25 MG Tab PO SCH (10:57)
[2017-06-10] MEDS: B.Bifidum/B.Longum/L.Acidophilus/L.Rhamnosus (Probiotic) Cap PO SCH (10:57)
[2017-06-10] MEDS: Escitalopram 10 MG Tab PO SCH (10:57)
[2017-06-10] MEDS: Insulin Detemir 100 Units/ML 3 ML Pen SUBCUT SCH ×3 (10:57→21:16)
[2017-06-10] MEDS: Potassium Chloride 10 MEQ Tab.ER PO SCH ×2 (10:57→21:15)
[2017-06-10] MEDS: Liraglutide (rDNA Origin) 0.6 MG/0.1 ML 3 ML Pen SUBCUT SCH ×2 (10:58→11:00)
[2017-06-10] MEDS: Zinc (Zinc Gluconate) 50 MG Tab PO SCH (10:58)
[2017-06-10] MEDS: Famotidine 20 MG Tab PO SCH ×2 (10:58→21:16)
[2017-06-10] MEDS: DAPTOmycin 800 MG in Sodium Chloride 0.9% 50 ML IV SCH (16:25)
[2017-06-10] MEDS: Sodium Chloride 0.9% 10 ML Syringe FLUSH SCH ×2 (17:00→19:07)
[2017-06-10] MEDS: Sodium Chloride 0.9% 100 ML IV SCH (17:00)
[2017-06-11] MEDS: Acetaminophen 325 MG Tab PO PRN (03:33)
[2017-06-11] MEDS: metroNIDAZOLE 500 MG Tab PO SCH ×3 (05:24→21:23)
[2017-06-11] MEDS: Omeprazole 20 MG Cap.CR PO SCH ×3 (05:24→07:30)
[2017-06-11] MEDS: Calcium Citrate/Vitamin D3 315 MG-250 Unit Tab PO SCH ×3 (06:13→18:23)
[2017-06-11] MEDS: Multivitamins with Minerals/Iron/Folic Acid/Lycopene Tab PO SCH ×2 (06:14→11:20)
[2017-06-11] MEDS: metFORMIN 500 MG Tab PO SCH ×3 (06:14→18:23)
[2017-06-11] MEDS: Rosuvastatin 10 MG Tab PO SCH ×2 (06:16→11:23)
[2017-06-11] MEDS: Escitalopram 10 MG Tab PO SCH ×2 (06:17→11:22)
[2017-06-11] MEDS: Losartan 50 MG Tab PO SCH ×3 (06:17→21:23)
[2017-06-11] MEDS: Zinc (Zinc Gluconate) 50 MG Tab PO SCH ×2 (06:18→11:21)
[2017-06-11] MEDS: B.Bifidum/B.Longum/L.Acidophilus/L.Rhamnosus (Probiotic) Cap PO SCH ×2 (06:18→11:22)
[2017-06-11] MEDS: Famotidine 20 MG Tab PO SCH ×3 (06:18→21:23)
[2017-06-11] MEDS: Aspirin 325 MG Tab.EC PO SCH ×2 (06:19→11:23)
[2017-06-11] MEDS: Hydrochlorothiazide 25 MG Tab PO SCH ×2 (06:19→11:23)
[2017-06-11] MEDS: Potassium Chloride 10 MEQ Tab.ER PO SCH ×3 (06:20→21:23)
[2017-06-11] MEDS: Insulin Regular, Human 100 Units/ML 10 ML Vial SUBCUT SCH ×4 (11:19→21:25)
[2017-06-11] MEDS: Liraglutide (rDNA Origin) 0.6 MG/0.1 ML 3 ML Pen SUBCUT SCH (11:21)
[2017-06-11] MEDS: Insulin Detemir 100 Units/ML 3 ML Pen SUBCUT SCH ×2 (11:22→21:33)
[2017-06-11] MEDS: DAPTOmycin 800 MG in Sodium Chloride 0.9% 50 ML IV SCH (18:22)
[2017-06-11] MEDS: Sodium Chloride 0.9% 100 ML IV SCH (18:22)
[2017-06-11] MEDS: Sodium Chloride 0.9% 10 ML Syringe FLUSH SCH ×2 (18:23→19:19)
[2017-06-12 05:49] VITALS: BP 116/72
[2017-06-12] MEDS: metroNIDAZOLE 500 MG Tab PO SCH (05:58)
[2017-06-12] MEDS: Omeprazole 20 MG Cap.CR PO SCH ×5 (06:00→07:17)
[2017-06-12] MEDS: Insulin Regular, Human 100 Units/ML 10 ML Vial SUBCUT SCH ×3 (07:08→11:38)
[2017-06-12] MEDS: Hydrochlorothiazide 25 MG Tab PO SCH (08:04)
[2017-06-12] MEDS: Famotidine 20 MG Tab PO SCH (08:04)
[2017-06-12] MEDS: Escitalopram 10 MG Tab PO SCH (08:04)
[2017-06-12] MEDS: Rosuvastatin 10 MG Tab PO SCH (08:04)
[2017-06-12] MEDS: Calcium Citrate/Vitamin D3 315 MG-250 Unit Tab PO SCH (08:04)
[2017-06-12] MEDS: B.Bifidum/B.Longum/L.Acidophilus/L.Rhamnosus (Probiotic) Cap PO SCH (08:04)
[2017-06-12] MEDS: Zinc (Zinc Gluconate) 50 MG Tab PO SCH (08:05)
[2017-06-12] MEDS: Potassium Chloride 10 MEQ Tab.ER PO SCH (08:05)
[2017-06-12] MEDS: Aspirin 325 MG Tab.EC PO SCH (08:05)
[2017-06-12] MEDS: metFORMIN 500 MG Tab PO SCH (08:05)
[2017-06-12] MEDS: Multivitamins with Minerals/Iron/Folic Acid/Lycopene Tab PO SCH (08:05)
[2017-06-12] MEDS: Losartan 50 MG Tab PO SCH (08:07)
[2017-06-12] MEDS: Insulin Detemir 100 Units/ML 3 ML Pen SUBCUT SCH (08:08)
[2017-06-12] MEDS: Liraglutide (rDNA Origin) 0.6 MG/0.1 ML 3 ML Pen SUBCUT SCH (08:16)
[2017-06-12] MEDS: DAPTOmycin 800 MG in Sodium Chloride 0.9% 50 ML IV SCH (12:14)
--- NOTE | 2017-06-13 11:20 | DISCH ---
He was admitted into swing bed on 05/11/2017, discharged from swing bed today, 06/12/2017. FINAL DIAGNOSES: 1. Left foot infected ulcer. Cultures positive for Streptococcus G group along with Streptococcus viridans group, Prevotella along with methicillin- resistant Staphylococcus aureus. 2. Rash from vancomycin. 3. Poorly controlled diabetes mellitus. 4. History of methicillin-resistant Staphylococcus aureus. 5. Obesity, morbid. He is on reduced-calorie. 6. Anemia of chronic disease, which is stable. 7. Depression, stable. 8. Hypertension, stable. 9. Hyperlipidemia, stable on statin therapy and aspirin. 10.Diabetes mellitus, type 2. HISTORY: This gentleman who is 56, has been in [facility] for infected toe. He has been receiving wound VAC therapy. He underwent a left foot I and D with excision of all nonviable soft tissue and bone on 06/07/2017 and 06/10/2017, by Dr. Juarez, [facility] [place], along with wound VAC placement on 05/10/2017. He has completed about four weeks of antimicrobial for MRSA. Vancomycin was switched to daptomycin due to skin rash. He has been tolerating daptomycin with no GI side effects. He does have an ongoing PICC line. He has been followed closely by flume worker along with Infectious Disease and receiving physical therapy. He has ongoing significant improvement in his debridement of his toe. He is in a Darco boot, offloading device, and using a walker. Wound VAC has been at continuous 125 mmHg with drainage, healing well wound. Again, he has been followed by Dr. Juarez, which was last appointment was 06/11/2017, with instructions to continue with oral metronidazole, continue with IV daptomycin, might change to clindamycin orally in a couple of weeks. He will see ID in two weeks for his left diabetic foot ulcer, he has ongoing wound VAC therapy. He has been receiving CRP, ESR, CBCs, and comprehensive metabolic profile on a surveillance schedule. His next due on 06/15/2017. He does have limited mobility. He is to wear his Darco boot. He did have some nausea, emesis, and generalized abdominal pain this weekend, thought it was a mild GI as other patients in the hospital had some GI disturbance. He was given fluids 1 L saline along with antiemetics, this did improve. He did have some diarrhea early on in his swing bed stay that did improve. His blood pressure was stable. We continued losartan, hydrochlorothiazide along with potassium supplementation. He does have hyperlipidemia, however, it was controlled on statin and aspirin. Diabetes mellitus, he did have some high blood sugar at that time, however, his overall A1c did improve to 6.6, this is good. He had no hypoglycemic episodes, so he will continue with metformin, Victoza, Lantus b.i.d. He does have morbid obesity, however, he did lose some weight while in hospital. I did place him on a restricted reduced-calorie. His weight on discharge was 275 pounds, this is down from 292 pounds. At one point, he did have a significant rash, appeared maculopapular, multi-biliform, doubtful Uday-Danial syndrome. He was discontinued off many medications that was suspected likely it was due to vancomycin that was discontinued. He was placed on daptomycin. He was given H2 blockers along with steroids and antihistamines, this did slowly improve to where he did not have a rash on discharge. He is also given antipruritic medicine. VITAL SIGNS ON DISCHARGE: Heart rate 103, blood pressure 116/72, weight is 275. Temperature 97.2, O2 sats 94%, respiratory rate 18. OTHER SPECIAL INSTRUCTIONS: The patient will continue with outpatient physical therapy, outpatient wound VAC changes Mondays, Wednesdays, and Fridays. He is to continue with wound VAC at 125 mmHg with a white foam based. This will be rechecked in two weeks by Podiatry, nonweightbearing, other than Darco shoe off- loading. Continue with chloride restriction. He can return to work. He will continue to receive outpatient daptomycin once a day. He has followup appointments with Infectious Disease and Podiatry. Labs will be assessed on 06/15/2017. MEDICATIONS ADJUSTMENTS: He will continue with metronidazole 500 mg p.o. q.8 hours. Continue with daptomycin. He can continue on all his other home medications. DISPOSITION: The patient will be discharged from the hospital. He has followup appointment in two weeks with Dr. Barrow. Receive outpatient therapy. Wound VAC therapy Sunday, Sunday, and Sunday. I will follow up with him in about 10 days at the [facility]. He is to report any increase in pain, rash, any complications with wound VAC. MEDICAL DECISION MAKIN minutes was spent on discharge planning and process, care coordinations, pharmacy consultation, and social media analyst consultation. /[id number]/MODL MTDD
== END 2017-06-12 13:30 | disposition home or self-care (01) | DRG 420 ==
LOC: KA.MS 14:02
PROVIDERS: ADMIT Family Medicine; ATTEND Family Medicine
DX: E11.621 Type 2 diabetes mellitus with foot ulcer (principal); L03.116 Cellulitis of left lower limb; B95.4 Other streptococcus as the cause of diseases classified elsewhere; B95.62 Methicillin resistant Staphylococcus aureus infection as the cause of diseases classified elsewhere; K21.9 Gastro-esophageal reflux disease without esophagitis; I12.9 Hypertensive chronic kidney disease with stage 1 through stage 4 chronic kidney disease, or unspecified chronic kidney disease; E11.22 Type 2 diabetes mellitus with diabetic chronic kidney disease; N18.9 Chronic kidney disease, unspecified; E11.40 Type 2 diabetes mellitus with diabetic neuropathy, unspecified; E11.65 Type 2 diabetes mellitus with hyperglycemia; R19.7 Diarrhea, unspecified; D63.1 Anemia in chronic kidney disease; E78.5 Hyperlipidemia, unspecified; F32.9 Major depressive disorder, single episode, unspecified; E66.01 Morbid (severe) obesity due to excess calories; R10.9 Unspecified abdominal pain; R11.2 Nausea with vomiting, unspecified; E86.0 Dehydration; L27.1 Localized skin eruption due to drugs and medicaments taken internally; T36.8X5A Adverse effect of other systemic antibiotics, initial encounter; Y92.230 Patient room in hospital as the place of occurrence of the external cause; Z68.32 Body mass index [BMI] 32.0-32.9, adult; Z79.4 Long term (current) use of insulin; Z79.899 Other long term (current) drug therapy
CPT/HCPCS: 36415; 80202; 82565; 82962; 83036; 84460; 85025; 85651; 86140; 87070; 97110-GP; 97116-GP; 97162-GP; 97530-GP; 97597-GP; 97605; A9270-GY; J0696; J0878; J1650; J1815-GY; J1817-GY; J2405; J2550; J3370; J3490; J7030; J7040; J7050; Q0177

== ENCOUNTER 2017-08-29 09:55 | Inpatient (IN) | payer BC ==
[2017-08-29] MEDS ORDERED: Sodium Chloride 0.9% 5 ML Syringe FLUSH PRN ×2 (10:15→11:51)
[2017-08-29] MEDS ORDERED: Ondansetron 4 MG/2 ML SDV IVPUSH ONE (10:25)
[2017-08-29] MEDS ORDERED: Sodium Chloride 0.9% 1,000 ML IV ONE (10:25)
[2017-08-29] MEDS ORDERED: Meclizine 25 MG Tab PO ONE (10:25)
--- NOTE | 2017-08-29 10:25 | EDM.PDOC ---
ED HPI GENERAL MEDICAL PROBLEM - General Chief Complaint: General Stated Complaint: dizziness Time Seen by Provider: 08/29/17 10:15 Source of Information: Reports: Patient History Limitations: Reports: No Limitations - History of Present Illness INITIAL COMMENTS - FREE TEXT/NARRATIVE: 56 YO WM presents to ER complaining of sudden onset dizziness which started approx 1 hour ago. Pt reports he was taking a break at work when he felt dizzy "like to room was spinning". Pt reports associated nausea and mild ataxia. Pt reports he has had similar symptoms in the past but has not had a diagnosis or treatment. Pt states he continued to feel dizzy after sitting down. Pt reports he started augmentin 3 days ago for left lower extremity cellulitis on an chronicly infected left foot. Pt denies fever/chills. Pt reports 1 episode of vomiting yesterday without dizziness. Pt denies chest pain, shortness of breath , recent illness. Onset: Sudden Duration: Hour(s): (1) Location: Reports: Head Severity: Mild Improves with: Reports: None Worsens with: Reports: Movement Associated Symptoms: Reports: Nausea/Vomiting, Weakness. Denies: Confusion, Chest Pain, Cough, cough w sputum, Diaphoresis, Fever/Chills, Headaches, Loss of Appetite, Malaise, Rash, Seizure, Shortness of Breath, Syncope - Related Data Allergies Allergy/AdvReac Type Severity Reaction Status Date / Time vancomycin Allergy Intermediate Rash Verified 08/29/17 10:07 Home Meds: Home Meds Acetaminophen [Tylenol] 650 mg PO TID 02/27/17 [History] Aspirin [Ecotrin] 325 mg PO DAILY 02/27/17 [History] Calcium Carbonate/Vitamin D3 [Calcium 600 + Vit D 400 Softgl] 1 tab PO BIDMEALS 02/27/17 [History] Hydrochlorothiazide 25 mg PO DAILY 02/27/17 [History] Insulin Aspart [NovoLOG] 3 - 11 units SQ ASDIRECTED 02/27/17 [History] Insulin Aspart [NovoLOG] 25 units SQ TID 02/27/17 [History] Insulin Glarg,Human.Rec.Analog [Lantus] 33 units SQ BID 02/27/17 [History] Omeprazole 20 mg PO DAILY 02/27/17 [History] Polyethylene Glycol 3350 [MiraLAX] 17 gm PO DAILY PRN 02/27/17 [History] Rosuvastatin [Crestor] 5 mg PO DAILY 02/27/17 [History] Liraglutide [Victoza] 1.8 mg SUBCUT DAILY 03/14/17 [History] metFORMIN [Glucophage] 1,000 mg PO BIDMEALS 03/14/17 [History] Escitalopram [Lexapro] 10 mg PO DAILY 05/11/17 [History] Losartan [Cozaar] 50 mg PO BID 05/11/17 [History] Potassium Chloride 10 meq PO BID 05/11/17 [History] Amoxicillin/Potassium Clav [Amox-Clav 875-125 mg Tablet] 1 tab PO BID 08/29/17 [ History] Past Medical History HEENT History: Reports: Impaired Vision Cardiovascular History: Reports: High Cholesterol, Hypertension Gastrointestinal History: Reports: GERD Genitourinary History: Reports: Chronic Renal Insuffiency Musculoskeletal History: Reports: Neck Pain, Chronic Neurological History: Reports: Neuropathy, Diabetic Endocrine/Metabolic History: Reports: Diabetes, Type II, IDDM, Obesity/BMI 30+ - Infectious Disease History Infectious Disease History: Reports: MRSA - Past Surgical History HEENT Surgical History: Reports: None GI Surgical History: Reports: Appendectomy, Cholecystectomy Musculoskeletal Surgical History: Reports: Arthroscopic Knee Social & Family History - Family History Family Medical History: Noncontributory HEENT: Reports: None Cardiac: Reports: None Respiratory: Reports: None GI: Reports: None : Reports: None OBGYN: Reports: None Musculoskeletal: Reports: None Neurological: Reports: None Psychiatric: Reports: None Endocrine/Metabolic: Reports: Diabetes, type II Hematologic: Reports: None Immunologic: Reports: None Dermatologic: Reports: None Oncologic: Reports: Prostate - Tobacco Use Smoking Status *Q: Never Smoker Second Hand Smoke Exposure: No - Caffeine Use Caffeine Use: Reports: Soda - Recreational Drug Use Recreational Drug Use: No ED ROS GENERAL - Review of Systems Review Of Systems: See Below Constitutional: Reports: No Symptoms HEENT: Reports: No Symptoms Respiratory: Reports: No Symptoms Cardiovascular: Reports: No Symptoms Endocrine: Reports: Fatigue GI/Abdominal: Reports: Nausea : Reports: No Symptoms Musculoskeletal: Reports: No Symptoms Skin: Reports: No Symptoms Neurological: Reports: Dizziness Psychiatric: Reports: No Symptoms Hematologic/Lymphatic: Reports: No Symptoms Immunologic: Reports: No Symptoms ED EXAM, GENERAL - Physical Exam Exam: See Below Exam Limited By: No Limitations General Appearance: Alert, WD/WN, No Apparent Distress Eye Exam: Bilateral Eye: EOMI, PERRL Ears: Normal External Exam, Normal Canal, Hearing Grossly Normal, Normal TMs Nose: Normal Inspection, Normal Mucosa, No Blood Throat/Mouth: Normal Inspection, Normal Lips, Normal Teeth, Normal Gums, Normal Oropharynx, Normal Voice, No Airway Compromise Head: Atraumatic, Normocephalic Neck: Normal Inspection, Supple, Non-Tender, Full Range of Motion Respiratory/Chest: No Respiratory Distress, Lungs Clear, Normal Breath Sounds, No Accessory Muscle Use, Chest Non-Tender Cardiovascular: Normal Peripheral Pulses, Regular Rate, Rhythm, No Edema, No Gallop, No JVD, No Murmur, No Rub, Tachycardia GI/Abdominal: Normal Bowel Sounds, Soft, Non-Tender, No Organomegaly, No Distention, No Abnormal Bruit, No Mass Back Exam: Normal Inspection, Full Range of Motion, NT Extremities: Normal Inspection, Normal Range of Motion, No Pedal Edema, Normal Capillary Refill, Increased Warmth, Redness Neurological: Alert, Oriented, CN II-XII Intact, Normal Cognition, Normal Gait, Normal Reflexes, No Motor/Sensory Deficits Psychiatric: Normal Affect, Normal Mood Skin Exam: Wound/Incision Lymphatic: No Adenopathy EKG INTERPRETATION EKG Date: 08/29/17 Time: 11:24 Rhythm: NSR Rate (Beats/Min): 107 [place]: Normal P-Wave: Present QRS: Normal ST-T: Normal QT: Normal Comparison: NA - No Prior EKG Course - Vital Signs Last Recorded V/S: Last Vital Signs Temp 36.9 C 08/29/17 10:08 Pulse 106 H 08/29/17 10:08 Resp 14 08/29/17 10:08 BP 126/63 08/29/17 10:08 Pulse Ox 100 08/29/17 10:08 - Orders/Labs/Meds Orders: Active Orders 24 hr Category Date Time Status EKG Documentation Completion [RC] ASDIRECTED Care 08/29/17 10:13 Active Chest 2V [CR] Stat Exams 08/29/17 10:14 Ordered Foot Comp Min 3V Lt [CR] Stat Exams 08/29/17 10:31 Ordered Head wo Cont [CT] Stat Exams 08/29/17 10:13 Taken UA W/MICROSCOPIC [URIN] Stat Lab 08/29/17 10:18 Uncollected Sodium Chloride 0.9% [Syrex Flush] Med 08/29/17 10:15 Active 5 ml FLUSH Q8HR PRN Saline Lock Insert [OM.PC] Routine Oth 08/29/17 10:15 Ordered EKG 12 Lead [EK] Routine Ther 08/29/17 10:13 Ordered Medication Orders Sodium Chloride (Syrex Flush) 5 ml FLUSH Q8HR PRN PRN Reason: Keep Vein Open Labs: Laboratory Tests 08/29/17 08/29/17 Range/Units 10:30 10:30 WBC 11.2 H (5.0-10.0) 10^3/uL RBC 3.58 L (4.50-6.00) 10^6/uL Hgb 10.8 L (13.0-17.0) g/dL Hct 32.6 L (40.0-52.0) % MCV 91.1 (82.0-92.0) fL MCH 30.0 (27.0-31.0) pg MCHC 33.0 (32.0-36.0) g/dL RDW 12.9 (11.5-14.5) % Plt Count 430 H (150-300) 10^3/uL MPV 8.2 (7.4-10.4) fL Neut % (Auto) 80.1 H (50.0-70.0) % Lymph % (Auto) 12.4 L (20.0-40.0) % [place] % (Auto) 6.0 (2.0-8.0) % Eos % (Auto) 0.9 L (1.0-3.0) % Baso % (Auto) 0.6 (0.0-1.0) % Neut # (Auto) 8.9 H (2.5-7.0) 10^3/uL Lymph # (Auto) 1.4 (1.0-4.0) 10^3/uL [place] # (Auto) 0.7 (0.1-0.8) 10^3/uL Eos # (Auto) 0.1 (0.1-0.3) 10^3/uL Baso # (Auto) 0.1 (0.0-0.1) 10^3/uL Sodium 135 L (136-145) mmol/L Potassium 3.9 (3.3-5.3) mmol/L Chloride 97 L (98-115) mmol/L Carbon Dioxide 25.7 (21.0-32.0) mmol/L BUN 25 (6-25) mg/dL Creatinine 1.04 (0.51-1.17) mg/dL Est Cr Clr Drug Dosing 87.05 mL/min Estimated GFR (MDRD) > 60 mL/min Glucose 379 H (70-110) mg/dL Calcium 9.4 (8.7-10.3) mg/dL Total Bilirubin 0.8 (0.2-1.0) mg/dL AST 15 (15-37) U/L ALT 15 (12-78) U/L Alkaline Phosphatase 93 (46-116) IU/L Creatine Kinase 73 (26-276) U/L CK-MB (CK-2) 1.20 (0.00-4.30) ng/mL Troponin I 0.05 (0.00-0.070) ng/mL Total Protein 9.1 H (6.4-8.2) g/dL Albumin 3.03 (3.00-4.80) g/dL Meds: Medications Generic Name Dose Route Start Last Admin Trade Name Freq PRN Reason Stop Dose Admin Sodium Chloride 5 ml 08/29/17 10:15 Syrex Flush FLUSH Q8HR PRN Keep Vein Open Discontinued Medications Generic Name Dose Route Start Last Admin Trade Name Freq PRN Reason Stop Dose Admin Sodium Chloride 1,000 mls @ 999 mls/hr 08/29/17 10:25 Normal Saline IV 08/29/17 11:25 .BOLUS ONE Meclizine HCl 50 mg 08/29/17 10:25 08/29/17 10:43 Antivert PO 08/29/17 10:26 50 mg ONETIME ONE Administration Ondansetron HCl 4 mg 08/29/17 10:25 Zofran IVPUSH 08/29/17 10:26 ONETIME ONE - Radiology Interpretation Free Text/Narrative:: foot- NAD chest- NAD CT head- NAD Departure - Departure Time of Disposition: 11:46 Disposition: Admitted As Inpatient 66 Condition: Fair Clinical Impression: Hyperosmolality due to uncontrolled type 1 diabetes mellitus, Hyperglycemia due to type 1 diabetes mellitus, Orthostatic dizziness Cellulitis Qualifiers: Site of cellulitis: extremity Site of cellulitis of extremity: lower extremity Laterality: left Qualified Code(s): L03.116 - Cellulitis of left lower limb - Discharge Information Referrals: Mady Johns MD [Primary Care Provider] - Forms: ED Department Discharge - My Orders Last 24 Hours: My Active Orders 08/29/17 10:13 EKG Documentation Completion [RC] ASDIRECTED Head wo Cont [CT] Stat EKG 12 Lead [EK] Routine 08/29/17 10:14 Chest 2V [CR] Stat 08/29/17 10:15 Sodium Chloride 0.9% [Syrex Flush] 5 ml FLUSH Q8HR PRN Saline Lock Insert [OM.PC] Routine 08/29/17 10:18 UA W/MICROSCOPIC [URIN] Stat 08/29/17 10:31 Foot Comp Min 3V Lt [CR] Stat - Assessment/Plan Last 24 Hours: My Active Orders 08/29/17 10:13 EKG Documentation Completion [RC] ASDIRECTED Head wo Cont [CT] Stat EKG 12 Lead [EK] Routine 08/29/17 10:14 Chest 2V [CR] Stat 08/29/17 10:15 Sodium Chloride 0.9% [Syrex Flush] 5 ml FLUSH Q8HR PRN Saline Lock Insert [OM.PC] Routine 08/29/17 10:18 UA W/MICROSCOPIC [URIN] Stat 08/29/17 10:31 Foot Comp Min 3V Lt [CR] Stat Assessment:: 1. left foot cellulitis 2. orthostatic hypotension 3. hyperosmolar hyperglycemia 4, possible vertigo Plan: 1. admit to medicine- [facility] 2. IVF hydration 3. insulin sliding scale 4. zosyn 3.375g IV Q6 for left foot cellulitis 5. supportive care
[2017-08-29 11:17] LABS: CHLORIDE,CL 97 mmol/L (98-115); SODIUM,NA 135 mmol/L (136-145)
[2017-08-29] MEDS ORDERED: Ondansetron 4 MG/2 ML SDV IV PRN (11:51)
[2017-08-29] MEDS ORDERED: Piperacillin/Tazobactam/Dext 3.375 GM in Premix Bag 1 BAG IV SCH (12:00)
[2017-08-29] MEDS ORDERED: Lidocaine 2% 100 MG/5 ML Syringe IVPUSH PRN (13:45)
[2017-08-29] MEDS ORDERED: EPINEPHrine 1:10,000 1 MG/10 ML Syringe IVPUSH PRN (13:45)
[2017-08-29] MEDS ORDERED: Atropine 0.1 MG/ML 10 ML Syringe IVPUSH PRN (13:45)
[2017-08-29] MEDS ORDERED: Nitroglycerin 0.4 MG Tab.SL SL PRN (13:45)
[2017-08-29] MEDS: Piperacillin/Tazobactam/Dext 3.375 GM in Premix Bag 1 BAG IV SCH ×2 (14:15→20:10)
[2017-08-29] MEDS: Sodium Chloride 0.9% 1,000 ML IV SCH ×2 (14:15→23:22)
[2017-08-29] MEDS: Insulin Aspart 100 Units/ML 3 ML Pen SUBCUT SCH ×2 (18:08→18:09)
[2017-08-29] MEDS: Potassium Chloride 10 MEQ Tab.ER PO SCH (20:15)
[2017-08-29] MEDS: Acetaminophen 325 MG Tab PO SCH (20:15)
[2017-08-29] MEDS ORDERED: Insulin Detemir 100 Units/ML 3 ML Pen SUBCUT SCH (21:00)
[2017-08-30] MEDS: Piperacillin/Tazobactam/Dext 3.375 GM in Premix Bag 1 BAG IV SCH ×4 (02:16→19:50)
[2017-08-30] MEDS: Acetaminophen 325 MG Tab PO SCH ×4 (05:14→20:49)
[2017-08-30] MEDS: Insulin Aspart 100 Units/ML 3 ML Pen SUBCUT SCH ×6 (07:18→17:25)
[2017-08-30] MEDS: Omeprazole 20 MG Cap.CR PO SCH (07:52)
[2017-08-30] MEDS: Sodium Chloride 0.9% 1,000 ML IV SCH ×2 (07:54→17:05)
[2017-08-30] MEDS: Potassium Chloride 10 MEQ Tab.ER PO SCH ×2 (08:30→20:49)
[2017-08-30] MEDS: Aspirin 325 MG Tab.EC PO SCH (08:30)
[2017-08-30] MEDS: Liraglutide (rDNA Origin) 0.6 MG/0.1 ML 3 ML Pen SUBCUT SCH (08:31)
[2017-08-30] MEDS: Escitalopram 10 MG Tab PO SCH (08:31)
--- NOTE | 2017-08-30 08:43 | PCM.HP ---
H&P History of Present Illness - General Date of Service: 08/30/17 Source of Information: Patient, Old Records, Provider, RN History Limitations: Reports: No Limitations Left Feet Pain Score (Numeric/FACES): 2 - Related Data Allergies/Adverse Reactions: Allergies Allergy/AdvReac Type Severity Reaction Status Date / Time vancomycin Allergy Intermediate Rash Verified 08/29/17 10:07 Home Medications: Home Meds Acetaminophen [Tylenol] 650 mg PO TID 02/27/17 [History] Aspirin [Ecotrin] 325 mg PO DAILY 02/27/17 [History] Calcium Carbonate/Vitamin D3 [Calcium 600 + Vit D 400 Softgl] 1 tab PO BID 02/27 [History] Insulin Aspart [NovoLOG] 3 - 11 units SQ TIDMEALS 02/27/17 [History] Insulin Aspart [NovoLOG] 25 units SQ TIDMEALS 02/27/17 [History] Insulin Glarg,Human.Rec.Analog [Lantus] 30 units SQ DAILY 02/27/17 [History] Omeprazole 20 mg PO DAILY 02/27/17 [History] Polyethylene Glycol 3350 [MiraLAX] 17 gm PO DAILY PRN 02/27/17 [History] Rosuvastatin [Crestor] 5 mg PO DAILY 02/27/17 [History] Liraglutide [Victoza] 1.8 mg SUBCUT DAILY 03/14/17 [History] metFORMIN [Glucophage] 1,000 mg PO BIDMEALS 03/14/17 [History] Escitalopram [Lexapro] 10 mg PO DAILY 05/11/17 [History] Potassium Chloride 10 meq PO BID 05/11/17 [History] Acetaminophen/Codeine [Tylenol with Codeine No.3 300MG/30MG] 1 - 2 tab PO Q4H PRN 08/29/17 [History] Amoxicillin/Potassium Clav [Amox-Clav 875-125 mg Tablet] 1 tab PO BID 08/29/17 [ History] Hydrochlorothiazide [Hydrochlorothiazide] 25 mg PO DAILY 08/29/17 [History] Idosorb* 1 applic TOP DAILY PRN 08/29/17 [History] Insulin Glarg,Human.Rec.Analog [LantUS Solostar] 40 units SQ BEDTIME 08/29/17 [ History] Losartan Potassium 25 mg PO DAILY 08/29/17 [History] Polyethylene Glycol 3350 [MiraLAX] 17 gm PO DAILY PRN 08/29/17 [History] Silver Sulfadiazine [Silvadene 1% Cream 20 GM] 1 applic TOP BID 08/29/17 [ History] Past Medical History HEENT History: Reports: Impaired Vision Cardiovascular History: Reports: High Cholesterol, Hypertension Respiratory History: Reports: None Gastrointestinal History: Reports: GERD Genitourinary History: Reports: Chronic Renal Insuffiency Musculoskeletal History: Reports: None Neurological History: Reports: Neuropathy, Diabetic Psychiatric History: Reports: Anxiety, Depression, Panic Attack Endocrine/Metabolic History: Reports: Diabetes, Type II, IDDM, Obesity/BMI 30+ Dermatologic History: Reports: Cellulitis - Infectious Disease History Infectious Disease History: Reports: Chicken Pox, Measles, MRSA - Past Surgical History HEENT Surgical History: Reports: None Cardiovascular Surgical History: Reports: None Respiratory Surgical History: Reports: None GI Surgical History: Reports: Appendectomy, Cholecystectomy, Colonoscopy Male Surgical History: Reports: None Endocrine Surgical History: Reports: None Neurological Surgical History: Reports: None Musculoskeletal Surgical History: Reports: Arthroscopic Knee Dermatological Surgical History: Reports: None Social & Family History - Family History Family Medical History: Noncontributory HEENT: Reports: None Cardiac: Reports: None Respiratory: Reports: None GI: Reports: None : Reports: None OBGYN: Reports: None Musculoskeletal: Reports: None Neurological: Reports: None Psychiatric: Reports: None Endocrine/Metabolic: Reports: Diabetes, type II Hematologic: Reports: None Immunologic: Reports: None Dermatologic: Reports: None Oncologic: Reports: Prostate - Tobacco Use Smoking Status *Q: Never Smoker Second Hand Smoke Exposure: No - Caffeine Use Caffeine Use: Reports: Soda - Recreational Drug Use Recreational Drug Use: No H&P Review of Systems - Review of Systems: Review Of Systems: See Below General: Reports: Weight Loss. Denies: Fever, Chills, Night Sweats, Decreased Appetite Pulmonary: Reports: No Symptoms Cardiovascular: Reports: Lightheadedness (mild on standing) Gastrointestinal: Denies: Abdominal Pain, Anorexia, Constipation, Diarrhea, Decreased Appetite, Difficulty Swallowing, Melena Genitourinary: Reports: No Symptoms Skin: Reports: Rash, Wound, Change in Color Psychiatric: Reports: No Symptoms Hematologic/Lymphatic: Reports: No Symptoms Immunologic: Reports: No Symptoms Exam - Exam Exam: See Below - Vital Signs Vital Signs: Last Vital Signs Temp 98.4 F 08/30/17 07:00 Pulse 75 08/30/17 07:00 Resp 20 08/30/17 07:00 BP 141/76 H 08/30/17 07:00 Pulse Ox 98 08/30/17 07:32 Weight: 257 lb 11.2 oz - Exam Quality Assessment: No: Supplemental Oxygen General: Alert, Oriented, 4 HEENT: PERRLA, Hearing Intact, Mucosa Moist & [place], Nares Patent, Normal Nasal Septum, Posterior Pharynx Clear, Conjunctiva Clear, EOMI, EACs Clear, TMs Clear Neck: Supple, Trachea Midline, 2 Lungs: Clear to Auscultation, Normal Respiratory Effort Cardiovascular: Regular Rate, Regular Rhythm GI/Abdominal Exam: Normal Bowel Sounds, Soft, Non-Tender, No Organomegaly, No Distention, No Abnormal Bruit, No Mass, Pelvis Stable (Male) Exam: Deferred Rectal (Males) Exam: Deferred Back Exam: No: CVA Tenderness (L), CVA Tenderness (R) Skin: Wound, Other (Redness receding, sanguinous fluid drainage foot, no odor, tenderness first metatarsal with 1-2+ edema and mild redness) Neurological: Cranial Nerves Intact, Reflexes Equal Bilateral Neuro Extensive - Mental Status: Alert, Oriented x3, Normal Mood/Affect, Normal Cognition Neuro Extensive - Motor, Sensory, Reflexes: CN II-XII Intact, Normal Gait, Normal Reflexes Psychiatric: Alert, Normal Affect, Normal Mood - Patient Data Lab Results Last 24 hrs: Laboratory Results - last 24 hr 08/29/17 08/29/17 08/29/17 Range/Units 13:40 16:11 17:20 WBC (5.0-10.0) 10^3/uL RBC (4.50-6.00) 10^6/uL Hgb (13.0-17.0) g/dL Hct (40.0-52.0) % MCV (82.0-92.0) fL MCH (27.0-31.0) pg MCHC (32.0-36.0) g/dL RDW (11.5-14.5) % Plt Count (150-300) 10^3/uL MPV (7.4-10.4) fL Neut % (Auto) (50.0-70.0) % Lymph % (Auto) (20.0-40.0) % [place] % (Auto) (2.0-8.0) % Eos % (Auto) (1.0-3.0) % Baso % (Auto) (0.0-1.0) % Neut # (Auto) (2.5-7.0) 10^3/uL Lymph # (Auto) (1.0-4.0) 10^3/uL [place] # (Auto) (0.1-0.8) 10^3/uL Eos # (Auto) (0.1-0.3) 10^3/uL Baso # (Auto) (0.0-0.1) 10^3/uL POC Glucose 293 H 263 H (74-106) mg/dl Specimen Type Urinvoid Urine Color Yellow (YELLOW) Urine Appearance Clear (CLEAR) Urine pH 5.5 (5.0-9.0) Ur Specific [place] 1.010 (1.005-1.030) Urine Protein Trace H (NEGATIVE) mg/dL Urine Glucose (UA) 500 H (NEGATIVE) mg/dL Urine Ketones Negative (NEGATIVE) mg/dL Urine Occult Blood Negative (NEGATIVE) Urine Nitrite Negative (NEGATIVE) Urine Bilirubin Negative (NEGATIVE) Urine Urobilinogen 0.2 (0.2-1.0) E.U./dL Ur Leukocyte Esterase Negative (NEGATIVE) Urine RBC 0-5 /HPF Urine WBC 0-5 /HPF Ur Epithelial Cells Few /LPF Urine Bacteria Few (NONE TO FEW) /HPF Hyaline Casts Few H (NEGATIVE) /LPF 08/30/17 08/30/17 Range/Units 07:05 07:30 WBC 7.3 (5.0-10.0) 10^3/uL RBC 3.14 L (4.50-6.00) 10^6/uL Hgb 9.5 L (13.0-17.0) g/dL Hct 29.2 L (40.0-52.0) % MCV 93.0 H (82.0-92.0) fL MCH 30.1 (27.0-31.0) pg MCHC 32.4 (32.0-36.0) g/dL RDW 12.9 (11.5-14.5) % Plt Count 420 H (150-300) 10^3/uL MPV 7.7 (7.4-10.4) fL Neut % (Auto) 63.3 (50.0-70.0) % Lymph % (Auto) 25.6 (20.0-40.0) % [place] % (Auto) 6.6 (2.0-8.0) % Eos % (Auto) 3.9 H (1.0-3.0) % Baso % (Auto) 0.6 (0.0-1.0) % Neut # (Auto) 4.6 (2.5-7.0) 10^3/uL Lymph # (Auto) 1.9 (1.0-4.0) 10^3/uL [place] # (Auto) 0.5 (0.1-0.8) 10^3/uL Eos # (Auto) 0.3 (0.1-0.3) 10^3/uL Baso # (Auto) 0.0 (0.0-0.1) 10^3/uL POC Glucose 142 H (74-106) mg/dl Specimen Type Urine Color (YELLOW) Urine Appearance (CLEAR) Urine pH (5.0-9.0) Ur Specific [place] (1.005-1.030) Urine Protein (NEGATIVE) mg/dL Urine Glucose (UA) (NEGATIVE) mg/dL Urine Ketones (NEGATIVE) mg/dL Urine Occult Blood (NEGATIVE) Urine Nitrite (NEGATIVE) Urine Bilirubin (NEGATIVE) Urine Urobilinogen (0.2-1.0) E.U./dL Ur Leukocyte Esterase (NEGATIVE) Urine RBC /HPF Urine WBC /HPF Ur Epithelial Cells /LPF Urine Bacteria (NONE TO FEW) /HPF Hyaline Casts (NEGATIVE) /LPF Result Diagrams: 08/30/17 07:30 08/30/17 07:30 *Q Meaningful Use (ADM) - VTE *Q VTE Criteria *Q: - Stroke *Q Stroke Criteria *Q: - AMI *Q AMI Criteria *Q: Problem List Initiated/Reviewed/Updated: Yes Orders Last 24hrs: Active Orders 24 hr Category Date Time Status CULTURE WOUND [RM] Routine Lab 08/29/17 14:30 Received ESR [SEDIMENTATION RATE MANUAL] [HEME] AM Lab 08/30/17 07:30 Results Acetaminophen [Tylenol] Med 08/29/17 21:00 Active 650 mg PO TID Aspirin [Ecotrin] Med 08/30/17 09:00 Active 325 mg PO DAILY Atropine [Atropine 0.1 MG/ML] Med 08/29/17 13:45 Active 0 mg IVPUSH ASDIRECTED PRN EPINEPHrine [EPINEPHrine 1:10,000] Med 08/29/17 13:45 Active 1 mg IVPUSH ASDIRECTED PRN Escitalopram [Lexapro] Med 08/30/17 09:00 Active 10 mg PO DAILY Insulin Aspart [NovoLOG] Med 08/29/17 18:00 Active 25 unit SUBCUT TIDMEALS Insulin Aspart [NovoLOG] Med 08/29/17 18:00 Active See Protocol SUBCUT TIDMEALS Insulin Detemir [Levemir] Med 08/30/17 09:00 Active 30 unit SUBCUT DAILY Insulin Detemir [Levemir] Med 08/29/17 21:00 Active 40 unit SUBCUT BEDTIME Lidocaine 2% [Xylocaine 2%] Med 08/29/17 13:45 Active 0 mg IVPUSH ASDIRECTED PRN Liraglutide [Victoza] Med 08/30/17 09:00 Active 1.8 mg SUBCUT DAILY Nitroglycerin [Nitrostat] Med 08/29/17 13:45 Active 0.4 mg SL ASDIRECTED PRN Omeprazole Med 08/30/17 07:30 Active 20 mg PO ACBREAKFAST Piperacillin/Tazobactam/Dext [Zosyn in Dextrose Iso- Med 08/29/17 14:00 Active Osmotic 3.375 GM] 3.375 gm Premix Bag 1 bag IV Q6H Potassium Chloride [Klor-Con 10] Med 08/29/17 21:00 Active 10 meq PO BID Rosuvastatin [Crestor] Med 08/30/17 09:00 Active 5 mg PO DAILY Medication Orders Acetaminophen (Tylenol) 650 mg PO TID [facility] Last Admin: 08/30/17 08:34 Dose: Not Given Admin: 08/30/17 05:14 Dose: 650 mg Admin: 08/29/17 20:15 Dose: 650 mg Aspirin (Ecotrin) 325 mg PO DAILY [facility] Last Admin: 08/30/17 08:30 Dose: 325 mg Atropine Sulfate (Atropine 0.1 Mg/Ml) 0 mg IVPUSH ASDIRECTED PRN PRN Reason: Heart Epinephrine HCl (Epinephrine 1:10,000) 1 mg IVPUSH ASDIRECTED PRN PRN Reason: Heart Escitalopram Oxalate (Lexapro) 10 mg PO DAILY [facility] Last Admin: 08/30/17 08:31 Dose: 10 mg Sodium Chloride (Normal Saline) 1,000 mls @ 125 mls/hr IV ASDIRECTED [facility] Last Admin: 08/30/17 07:54 Dose: 125 mls/hr Infusion: 08/30/17 07:22 Dose: 125 mls/hr Admin: 08/29/17 23:22 Dose: 125 mls/hr Infusion: 08/29/17 22:15 Dose: 125 mls/hr Admin: 08/29/17 14:15 Dose: 125 mls/hr Piperacillin/Tazobactam/ (Dextrose 3.375 gm/ Premix) 50 mls @ 100 mls/hr IV Q6H [facility] Last Admin: 08/30/17 08:30 Dose: 100 mls/hr Infusion: 08/30/17 02:46 Dose: 100 mls/hr Admin: 08/30/17 02:16 Dose: 100 mls/hr Infusion: 08/29/17 20:40 Dose: 100 mls/hr Admin: 08/29/17 20:10 Dose: 100 mls/hr Infusion: 08/29/17 14:45 Dose: 100 mls/hr Admin: 08/29/17 14:15 Dose: 100 mls/hr Insulin Aspart (Novolog) 25 unit SUBCUT TIDMEALS [facility] Last Admin: 08/30/17 07:53 Dose: 25 unit Admin: 08/29/17 18:08 Dose: 25 unit Insulin Aspart (Novolog) 0 unit SUBCUT TIDMEALS [facility] PRN Reason: Protocol Last Admin: 08/30/17 07:18 Dose: Admin: 08/29/17 18:09 Dose: 9 unit Insulin Detemir (Levemir) 40 unit SUBCUT BEDTIME [facility] Last Admin: 08/29/17 20:18 Dose: 40 units Insulin Detemir (Levemir) 30 unit SUBCUT DAILY [facility] Last Admin: 08/30/17 08:30 Dose: 30 units Lidocaine HCl (Xylocaine 2%) 0 mg IVPUSH ASDIRECTED PRN PRN Reason: Heart Liraglutide (Victoza) 1.8 mg SUBCUT DAILY [facility] Last Admin: 08/30/17 08:31 Dose: 1.8 mg Nitroglycerin (Nitrostat) 0.4 mg SL ASDIRECTED PRN PRN Reason: Heart Omeprazole (Omeprazole) 20 mg PO ACBREAKFAST [facility] Last Admin: 08/30/17 07:52 Dose: 20 mg Ondansetron HCl (Zofran) 4 mg IV Q6H PRN PRN Reason: Nausea/Vomiting Potassium Chloride (Klor-Con 10) 10 meq PO BID [facility] Last Admin: 08/30/17 08:30 Dose: 10 meq Admin: 08/29/17 20:15 Dose: 10 meq Rosuvastatin Calcium (Crestor) 5 mg PO DAILY [facility] Sodium Chloride (Syrex Flush) 5 ml FLUSH Q8HR PRN PRN Reason: Keep Vein Open Assessment/Plan Comment:: This 56-year-old patient with long-standing diabetes was admitted through the emergency department due to weakness and dizziness. The patient was brought into the [facility] yesterday however he was not able to be physically brought in so he was sent to the ED he was admitted due to elevated blood sugars and weakness and dizziness and dehydration along with worsening cellulitis left lower extremity. He stated he had 2 episodes of vomiting the day prior otherwise felt good. He woke up assessed his blood sugar and said it was 123 got ready to go to work after eating breakfast soon started experiencing some lightheadedness and weakness and dizziness. Approximately 3 days prior he was placed on Augmentin due to left lower extremity cellulitis in which he does have a chronic wound in which he recently had removal of wound VAC to his left foot. He has been being followed closely by podiatry Dr. Barrow in [place] in due to increased drainage from his wound he was switched to Iodosorb gel, next appointment next week. 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 Significant ED workup Positive orthostatics, fluids given Head CT, no acute process EKG, sinus tachycardia Left foot x-ray, no osseous destruction, soft tissue swelling Broad spectrum Antibiotics started Elevated white count/neutrophilia Primary impression Cellulitis, left lower extremity/foot, continue with IV Zosyn, elevation, shower with Hibiclens, clinically improving, very limited weightbearing Diabetic ulceration, left foot, full-thickness diabetic ulceration. Increase serous drainage, granular base measuring 2.3 x 1.2 cm. No malodor. Mild pain to the first metatarsal. We'll forego x-rays at this time, follow ESR and CBC. May need amputation in future as this appears chronic. Bart will need offloading cast Hyperosmolar hyperglycemia, improving, becoming more euvolemic, continue IV fluids however we will decrease tonight, insulin regimen GPL1, basal with SS adjustments. Much improved, reinforced sick day regimen. T2DM; see above, holding metformin Leukocytosis, now resolved, continue broad-spectrum IV Thrombocytosis, reactive Orthostatic hypotension, improving, reduce IV fluids tonight now that he is taking good orals, orthostatics tonight and in a.m. repeat Other chronic problems HLD; Crestor HTN; ARB, creatinine normal Obesity, discussion regarding weight management, he has lost weight. NAME ALERT Overall plan, adjust insulin, continue with fluids however decrease tonight, limited weightbearing, elevation left lower extremity, Hibiclens scrub, IV antibiotics, adjust insulin sliding scale education on sick day regimen, discontinue telemetry. Monitor ESR and CBC, MRI today.
[2017-08-30 08:48] LABS: CHLORIDE,CL 104 mmol/L (98-115); SODIUM,NA 139 mmol/L (136-145)
[2017-08-30] MEDS ORDERED: Insulin Detemir 100 Units/ML 3 ML Pen SUBCUT SCH (09:00)
[2017-08-30] MEDS ORDERED: Rosuvastatin 10 MG Tab PO SCH (09:00)
[2017-08-30] MEDS: Rosuvastatin 10 MG Tab PO SCH (10:22)
[2017-08-30] MEDS ORDERED: Sodium Chloride 0.9% 1,000 ML IV SCH (20:00)
[2017-08-31] MEDS: Piperacillin/Tazobactam/Dext 3.375 GM in Premix Bag 1 BAG IV SCH ×4 (01:45→20:14)
[2017-08-31] MEDS: Omeprazole 20 MG Cap.CR PO SCH (08:00)
[2017-08-31] MEDS: Rosuvastatin 10 MG Tab PO SCH (08:01)
[2017-08-31] MEDS: Potassium Chloride 10 MEQ Tab.ER PO SCH ×2 (08:02→20:15)
[2017-08-31] MEDS: Aspirin 325 MG Tab.EC PO SCH (08:02)
[2017-08-31] MEDS: Escitalopram 10 MG Tab PO SCH (08:03)
[2017-08-31] MEDS: Acetaminophen 325 MG Tab PO SCH ×3 (08:05→20:15)
[2017-08-31] MEDS: Insulin Aspart 100 Units/ML 3 ML Pen SUBCUT SCH ×5 (08:08→18:20)
[2017-08-31] MEDS: Insulin Detemir 100 Units/ML 3 ML Pen SUBCUT SCH (08:12)
[2017-08-31] MEDS: Liraglutide (rDNA Origin) 0.6 MG/0.1 ML 3 ML Pen SUBCUT SCH (08:17)
--- NOTE | 2017-08-31 11:27 | PCM.PN ---
- General Info Date of Service: 08/31/17 Functional Status: Reports: Pain Controlled, Tolerating Diet, Ambulating ( Weightbearing only in room--), New Symptoms (Hypoglycemic episode 29 blood sugar , Lantus adjusted and sliding-scale reduced), Incentive Spirometry - Review of Systems General: Denies: Fever HEENT: Reports: No Symptoms Pulmonary: Reports: No Symptoms Cardiovascular: Reports: No Symptoms Neurological: Denies: Confusion, Dizziness, Numbness, Seizure, Syncope Psychiatric: Reports: No Symptoms - Patient Data Vitals - Most Recent: Last Vital Signs Temp 98.3 F 08/31/17 07:00 Pulse 77 08/31/17 07:00 Resp 16 08/31/17 07:00 BP 143/83 H 08/31/17 07:00 Pulse Ox 96 08/31/17 08:04 Orthostatic Blood Pressure [ 100/58 Standing] Orthostatic Blood Pressure [ 124/69 Sitting] Orthostatic Blood Pressure [ 126/73 Supine] Weight - Most Recent: 257 lb 11.2 oz I&O - Last 24 Hours: Intake & Output 08/30/17 08/31/17 08/31/17 22:59 06:59 14:59 Intake Total 1535 678 Output Total 1200 1000 Balance 335 -322 Lab Results Last 24 Hours: Laboratory Results - last 24 hr 08/30/17 08/30/17 08/30/17 Range/Units 11:53 17:09 17:39 ESR (0-15) mm/hr POC Glucose 144 H 29 L* 74 (74-106) mg/dl 08/30/17 08/31/17 08/31/17 Range/Units 20:47 06:51 07:50 ESR 129 H (0-15) mm/hr POC Glucose 208 H 163 H (74-106) mg/dl [facility] Results Last 24 Hours: Microbiology 08/29/17 14:30 Wound Culture - Preliminary Foot, Left NO GROWTH AFTER 1 DAY Med Orders - Current: Current Medications Acetaminophen (Tylenol) 650 mg PO TID [facility] Last Admin: 08/31/17 08:05 Dose: 650 mg Aspirin (Ecotrin) 325 mg PO DAILY [facility] Last Admin: 08/31/17 08:02 Dose: 325 mg Atropine Sulfate (Atropine 0.1 Mg/Ml) 0 mg IVPUSH ASDIRECTED PRN PRN Reason: Heart Epinephrine HCl (Epinephrine 1:10,000) 1 mg IVPUSH ASDIRECTED PRN PRN Reason: Heart Escitalopram Oxalate (Lexapro) 10 mg PO DAILY [facility] Last Admin: 08/31/17 08:03 Dose: 10 mg Piperacillin/Tazobactam/ (Dextrose 3.375 gm/ Premix) 50 mls @ 100 mls/hr IV Q6H [facility] Last Admin: 08/31/17 08:21 Dose: 100 mls/hr Sodium Chloride (Normal Saline) 1,000 mls @ 90 mls/hr IV ASDIRECTED [facility] Last Admin: 08/31/17 04:25 Dose: 90 mls/hr Insulin Aspart (Novolog) 25 unit SUBCUT TIDMEALS [facility] Last Admin: 08/31/17 08:08 Dose: 25 unit Insulin Aspart (Novolog) 0 unit SUBCUT TIDMEALS [facility] PRN Reason: Protocol Last Admin: 08/31/17 08:11 Dose: 1 unit Insulin Detemir (Levemir) 50 unit SUBCUT DAILY [facility] Last Admin: 08/31/17 08:12 Dose: 50 units Lidocaine HCl (Xylocaine 2%) 0 mg IVPUSH ASDIRECTED PRN PRN Reason: Heart Liraglutide (Victoza) 1.8 mg SUBCUT DAILY [facility] Last Admin: 08/31/17 08:17 Dose: 1.8 mg Nitroglycerin (Nitrostat) 0.4 mg SL ASDIRECTED PRN PRN Reason: Heart Omeprazole (Omeprazole) 20 mg PO ACBREAKFAST [facility] Last Admin: 08/31/17 08:00 Dose: 20 mg Ondansetron HCl (Zofran) 4 mg IV Q6H PRN PRN Reason: Nausea/Vomiting Potassium Chloride (Klor-Con 10) 10 meq PO BID [facility] Last Admin: 08/31/17 08:02 Dose: 10 meq Rosuvastatin Calcium (Crestor) 2.5 mg PO DAILY [facility] Last Admin: 08/31/17 08:01 Dose: 2.5 mg Sodium Chloride (Syrex Flush) 5 ml FLUSH Q8HR PRN PRN Reason: Keep Vein Open Discontinued Medications Sodium Chloride (Normal Saline) 1,000 mls @ 999 mls/hr IV .BOLUS ONE Stop: 08/29/17 11:25 Last Admin: 08/29/17 12:20 Dose: 999 mls/hr Piperacillin/Tazobactam/ (Dextrose 3.375 gm/ Premix) 50 mls @ 100 mls/hr IV Q6H [facility] Last Admin: 08/29/17 14:17 Dose: Not Given Sodium Chloride (Normal Saline) 1,000 mls @ 125 mls/hr IV ASDIRECTED [facility] Stop: 08/30/17 20:00 Last Admin: 08/30/17 17:05 Dose: 125 mls/hr Insulin Detemir (Levemir) 40 unit SUBCUT BEDTIME [facility] Last Admin: 08/29/17 20:18 Dose: 40 units Insulin Detemir (Levemir) 30 unit SUBCUT DAILY [facility] Last Admin: 08/30/17 08:30 Dose: 30 units Meclizine HCl (Antivert) 50 mg PO ONETIME ONE Stop: 08/29/17 10:26 Last Admin: 08/29/17 10:43 Dose: 50 mg Ondansetron HCl (Zofran) 4 mg IVPUSH ONETIME ONE Stop: 08/29/17 10:26 Last Admin: 08/29/17 12:20 Dose: 4 mg Rosuvastatin Calcium (Crestor) 5 mg PO DAILY [facility] Last Admin: 08/30/17 10:04 Dose: Not Given Sodium Chloride (Syrex Flush) 5 ml FLUSH Q8HR PRN PRN Reason: Keep Vein Open - Exam Quality Assessment: No: Supplemental Oxygen General: Alert, Oriented Lungs: Clear to Auscultation Cardiovascular: Regular Rate, Regular Rhythm Extremities: No Pedal Edema Skin: Other (Improving erythremia left foot, see separate note for sharp debridement) Wound/Incisions: Drainage (Serosanguineous drainage significant), Erythema. No : Dressing Dry and Intact Psy/Mental Status: Alert, Normal Affect, Normal Mood - Problem List Review Problem List Initiated/Reviewed/Updated: Yes - My Orders Last 24 Hours: My Active Orders 08/30/17 10:37 Orthostatic Vital Signs [RC] 2000,0800 08/30/17 20:00 Sodium Chloride 0.9% [Normal Saline] 1,000 ml IV ASDIRECTED 08/31/17 09:00 Insulin Detemir [Levemir] 50 unit SUBCUT DAILY - Plan Plan:: This 56-year-old patient with long-standing diabetes was admitted through the emergency department due to weakness and dizziness. The patient was brought into the [facility] yesterday however he was not able to be physically brought in so he was sent to the ED he was admitted due to elevated blood sugars and weakness and dizziness and dehydration along with worsening cellulitis left lower extremity. He stated he had 2 episodes of vomiting the day prior otherwise felt good. He woke up assessed his blood sugar and said it was 123 got ready to go to work after eating breakfast soon started experiencing some lightheadedness and weakness and dizziness. Approximately 3 days prior he was placed on Augmentin due to left lower extremity cellulitis in which he does have a chronic wound in which he recently had removal of wound VAC to his left foot. He has been being followed closely by podiatry Dr. Barrow in [place] in due to increased drainage from his wound he was switched to Iodosorb gel, next appointment next week. 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 Significant ED workup Positive orthostatics, fluids given Head CT, no acute process EKG, sinus tachycardia Left foot x-ray, no osseous destruction, soft tissue swelling Broad spectrum Antibiotics started Elevated white count/neutrophilia Primary impression NAME ALERT Cellulitis, with risk of osteomyelitis, concerning elevated laboratory marker ESR, however improving in his erythremia, continue with IV Zosyn, elevation, shower with Hibiclens, very limited weightbearing, high risk for amputation, sharp debridement this morning see separate note, must keep elevation, offloading device stressed to patient. Diabetic ulceration, left foot, full-thickness diabetic ulceration, sharp debridement this morning. Culture surveillance negative, Increase serous drainage, granular base noted after debridement measuring 2.1 x 1.2 cm. No malodor. Mild pain to the first metatarsal. X-rays demonstrate soft tissue swelling however no osseous destruction, MRI availability at [facility] was not available and broke down, not available until next week. Concerning despite x- rays, (he can get this in [place] next week early) surveillance ESR/CRP and CBC. May need amputation in future as this appears chronic. Must use Darco but likely will need offloading cast. Hyperosmolar hyperglycemia, much improved however with episode of hypoglycemia, change Lantus to daily and reduced to 50 units. insulin regimen GPL1, basal with SS adjustments. Much improved, reinforced sick day regimen. T2DM; see above, no metformin in acute status. Leukocytosis, now resolved, continue broad-spectrum IV Thrombocytosis, reactive Orthostatic hypotension, improved, will decrease IV status. taking good orals, Other chronic problems HLD; Crestor HTN; ARB, creatinine normal Obesity, discussion regarding weight management, he has lost weight. NAME ALERT Overall plan, induced Lantus to daily and reduced dosage. Debrided this morning , see separate note, his IV fluids, twice a day dressing changed, was elevate further, must offloading device Darco limited weightbearing, Hibiclens scrub, IV antibiotics, Monitor CRP and CBC, MRI likely next week. Dr. Barrow appointment next week. Continue educating patient regarding status and offloading is important.
[2017-08-31] MEDS ORDERED: Insulin Aspart 100 Units/ML 3 ML Pen SUBCUT SCH (12:00)
[2017-08-31] MEDS ORDERED: Sodium Chloride 0.9% 1,000 ML IV SCH (12:00)
--- NOTE | 2017-08-31 12:03 | PCM.PRNOTE ---
- Free Text/Narrative Note: Debrided left foot diabetic ulcer done under sterile technique today. 1 mL lidocaine with epinephrine (non-digital) used. 15 blade was used was sharp debrided, removed all slough--beefy red granulating bed appearing now, good bleeding, no exposed tendon, patient tolerated procedure well. Dressing applied. Timeout provided. Consent signed.
[2017-09-01] MEDS: Piperacillin/Tazobactam/Dext 3.375 GM in Premix Bag 1 BAG IV SCH ×4 (02:03→20:48)
[2017-09-01 08:12] LABS: CHLORIDE,CL 103 mmol/L (98-115); SODIUM,NA 140 mmol/L (136-145)
[2017-09-01] MEDS: Rosuvastatin 10 MG Tab PO SCH (09:08)
[2017-09-01] MEDS: Escitalopram 10 MG Tab PO SCH (09:09)
[2017-09-01] MEDS: Aspirin 325 MG Tab.EC PO SCH (09:09)
[2017-09-01] MEDS: Potassium Chloride 10 MEQ Tab.ER PO SCH ×2 (09:09→20:49)
[2017-09-01] MEDS: Omeprazole 20 MG Cap.CR PO SCH (09:09)
[2017-09-01] MEDS: Insulin Aspart 100 Units/ML 3 ML Pen SUBCUT SCH ×6 (09:11→18:08)
[2017-09-01] MEDS: Liraglutide (rDNA Origin) 0.6 MG/0.1 ML 3 ML Pen SUBCUT SCH (09:15)
[2017-09-01] MEDS: Acetaminophen 325 MG Tab PO SCH ×4 (09:17→20:49)
[2017-09-01] MEDS: Insulin Detemir 100 Units/ML 3 ML Pen SUBCUT SCH (09:18)
--- NOTE | 2017-09-01 10:59 | PCM.PN ---
- General Info Date of Service: 09/01/17 Functional Status: Denies: Pain Controlled, Tolerating Diet, Ambulating, Other ( experienced hypoglycemia. Insulin adjusted last evening.) - Review of Systems General: Denies: Fever HEENT: Denies: No Symptoms Pulmonary: Denies: No Symptoms Cardiovascular: Denies: No Symptoms Gastrointestinal: Denies: No Symptoms Musculoskeletal: Reports: Other (left foot ulcer) Skin: Reports: Other (ulceration of the left foot) Neurological: Denies: Dizziness, Headache, Numbness, Tingling - Patient Data Vitals - Most Recent: Last Vital Signs Temp 97.9 F 09/01/17 06:33 Pulse 82 09/01/17 06:33 Resp 18 09/01/17 06:33 BP 142/86 H 09/01/17 06:33 Pulse Ox 98 09/01/17 06:33 Orthostatic Blood Pressure [ 100/58 Standing] Orthostatic Blood Pressure [ 124/69 Sitting] Orthostatic Blood Pressure [ 126/73 Supine] Weight - Most Recent: 257 lb 11.2 oz I&O - Last 24 Hours: Intake & Output 08/31/17 09/01/17 09/01/17 22:59 06:59 14:59 Intake Total 1738 820 Output Total 2600 300 Balance -862 520 Lab Results Last 24 Hours: Laboratory Results - last 24 hr 08/31/17 08/31/17 08/31/17 Range/Units 11:57 15:35 16:11 WBC (5.0-10.0) 10^3/uL RBC (4.50-6.00) 10^6/uL Hgb (13.0-17.0) g/dL Hct (40.0-52.0) % MCV (82.0-92.0) fL MCH (27.0-31.0) pg MCHC (32.0-36.0) g/dL RDW (11.5-14.5) % Plt Count (150-300) 10^3/uL MPV (7.4-10.4) fL Neut % (Auto) (50.0-70.0) % Lymph % (Auto) (20.0-40.0) % Bethel % (Auto) (2.0-8.0) % Eos % (Auto) (1.0-3.0) % Baso % (Auto) (0.0-1.0) % Neut # (Auto) (2.5-7.0) 10^3/uL Lymph # (Auto) (1.0-4.0) 10^3/uL Bethel # (Auto) (0.1-0.8) 10^3/uL Eos # (Auto) (0.1-0.3) 10^3/uL Baso # (Auto) (0.0-0.1) 10^3/uL Sodium (136-145) mmol/L Potassium (3.3-5.3) mmol/L Chloride (98-115) mmol/L Carbon Dioxide (21.0-32.0) mmol/L BUN (6-25) mg/dL Creatinine (0.51-1.17) mg/dL Est Cr Clr Drug Dosing mL/min Estimated GFR (MDRD) mL/min Glucose (70-110) mg/dL POC Glucose 190 H 66 L 83 (74-106) mg/dl Calcium (8.7-10.3) mg/dL C-Reactive Protein (0.0-0.9) mg/dL 08/31/17 08/31/17 09/01/17 Range/Units 17:56 20:17 07:35 WBC (5.0-10.0) 10^3/uL RBC (4.50-6.00) 10^6/uL Hgb (13.0-17.0) g/dL Hct (40.0-52.0) % MCV (82.0-92.0) fL MCH (27.0-31.0) pg MCHC (32.0-36.0) g/dL RDW (11.5-14.5) % Plt Count (150-300) 10^3/uL MPV (7.4-10.4) fL Neut % (Auto) (50.0-70.0) % Lymph % (Auto) (20.0-40.0) % Bethel % (Auto) (2.0-8.0) % Eos % (Auto) (1.0-3.0) % Baso % (Auto) (0.0-1.0) % Neut # (Auto) (2.5-7.0) 10^3/uL Lymph # (Auto) (1.0-4.0) 10^3/uL Bethel # (Auto) (0.1-0.8) 10^3/uL Eos # (Auto) (0.1-0.3) 10^3/uL Baso # (Auto) (0.0-0.1) 10^3/uL Sodium 140 (136-145) mmol/L Potassium 4.9 (3.3-5.3) mmol/L Chloride 103 (98-115) mmol/L Carbon Dioxide 28.8 (21.0-32.0) mmol/L BUN 10 (6-25) mg/dL Creatinine 0.81 (0.51-1.17) mg/dL Est Cr Clr Drug Dosing 115.08 mL/min Estimated GFR (MDRD) > 60 mL/min Glucose 160 H (70-110) mg/dL POC Glucose 70 L 142 H (74-106) mg/dl Calcium 9.0 (8.7-10.3) mg/dL C-Reactive Protein 3.5 H (0.0-0.9) mg/dL 11/18/17 Range/Units 07:35 WBC 8.5 (5.0-10.0) 10^3/uL RBC 3.55 L (4.50-6.00) 10^6/uL Hgb 10.4 L (13.0-17.0) g/dL Hct 33.4 L (40.0-52.0) % MCV 94.1 H (82.0-92.0) fL MCH 29.2 (27.0-31.0) pg MCHC 31.0 L (32.0-36.0) g/dL RDW 13.2 (11.5-14.5) % Plt Count 503 H (150-300) 10^3/uL MPV 7.8 (7.4-10.4) fL Neut % (Auto) 67.5 (50.0-70.0) % Lymph % (Auto) 23.3 (20.0-40.0) % Bethel % (Auto) 4.7 (2.0-8.0) % Eos % (Auto) 3.8 H (1.0-3.0) % Baso % (Auto) 0.7 (0.0-1.0) % Neut # (Auto) 5.7 (2.5-7.0) 10^3/uL Lymph # (Auto) 2.0 (1.0-4.0) 10^3/uL Bethel # (Auto) 0.4 (0.1-0.8) 10^3/uL Eos # (Auto) 0.3 (0.1-0.3) 10^3/uL Baso # (Auto) 0.1 (0.0-0.1) 10^3/uL Sodium (136-145) mmol/L Potassium (3.3-5.3) mmol/L Chloride (98-115) mmol/L Carbon Dioxide (21.0-32.0) mmol/L BUN (6-25) mg/dL Creatinine (0.51-1.17) mg/dL Est Cr Clr Drug Dosing mL/min Estimated GFR (MDRD) mL/min Glucose (70-110) mg/dL POC Glucose (74-106) mg/dl Calcium (8.7-10.3) mg/dL C-Reactive Protein (0.0-0.9) mg/dL Farzad Results Last 24 Hours: Microbiology 08/29/17 14:30 Wound Culture - Final Foot, Left Staphylococcus Coagulase Neg Med Orders - Current: Current Medications Acetaminophen (Tylenol) 650 mg PO TID [facility] Last Admin: 09/01/17 09:17 Dose: 650 mg Aspirin (Ecotrin) 325 mg PO DAILY [facility] Last Admin: 09/01/17 09:09 Dose: 325 mg Atropine Sulfate (Atropine 0.1 Mg/Ml) 0 mg IVPUSH ASDIRECTED PRN PRN Reason: Heart Epinephrine HCl (Epinephrine 1:10,000) 1 mg IVPUSH ASDIRECTED PRN PRN Reason: Heart Escitalopram Oxalate (Lexapro) 10 mg PO DAILY [facility] Last Admin: 09/01/17 09:09 Dose: 10 mg Piperacillin/Tazobactam/ (Dextrose 3.375 gm/ Premix) 50 mls @ 100 mls/hr IV Q6H [facility] Last Admin: 09/01/17 09:22 Dose: 100 mls/hr Sodium Chloride (Normal Saline) 1,000 mls @ 75 mls/hr IV ASDIRECTED [facility] Last Admin: 08/31/17 17:09 Dose: 75 mls/hr Insulin Aspart (Novolog) 0 unit SUBCUT TIDMEALS [facility] PRN Reason: Protocol Last Admin: 09/01/17 09:11 Dose: Not Given Insulin Aspart (Novolog) 15 unit SUBCUT TIDMEALS [facility] Last Admin: 09/01/17 09:12 Dose: 15 units Insulin Detemir (Levemir) 50 unit SUBCUT DAILY [facility] Last Admin: 09/01/17 09:18 Dose: 50 units Lidocaine HCl (Xylocaine 2%) 0 mg IVPUSH ASDIRECTED PRN PRN Reason: Heart Liraglutide (Victoza) 1.8 mg SUBCUT DAILY [facility] Last Admin: 09/01/17 09:15 Dose: 1.8 mg Nitroglycerin (Nitrostat) 0.4 mg SL ASDIRECTED PRN PRN Reason: Heart Omeprazole (Omeprazole) 20 mg PO ACBREAKFAST [facility] Last Admin: 09/01/17 09:09 Dose: 20 mg Ondansetron HCl (Zofran) 4 mg IV Q6H PRN PRN Reason: Nausea/Vomiting Potassium Chloride (Klor-Con 10) 10 meq PO BID [facility] Last Admin: 09/01/17 09:09 Dose: 10 meq Rosuvastatin Calcium (Crestor) 2.5 mg PO DAILY [facility] Last Admin: 09/01/17 09:08 Dose: 2.5 mg Sodium Chloride (Syrex Flush) 5 ml FLUSH Q8HR PRN PRN Reason: Keep Vein Open Discontinued Medications Sodium Chloride (Normal Saline) 1,000 mls @ 999 mls/hr IV .BOLUS ONE Stop: 08/29/17 11:25 Last Admin: 08/29/17 12:20 Dose: 999 mls/hr Piperacillin/Tazobactam/ (Dextrose 3.375 gm/ Premix) 50 mls @ 100 mls/hr IV Q6H [facility] Last Admin: 08/29/17 14:17 Dose: Not Given Sodium Chloride (Normal Saline) 1,000 mls @ 125 mls/hr IV ASDIRECTED [facility] Stop: 08/30/17 20:00 Last Admin: 08/30/17 17:05 Dose: 125 mls/hr Sodium Chloride (Normal Saline) 1,000 mls @ 90 mls/hr IV ASDIRECTED [facility] Last Admin: 08/31/17 04:25 Dose: 90 mls/hr Insulin Aspart (Novolog) 25 unit SUBCUT TIDMEALS [facility] Last Admin: 08/31/17 08:08 Dose: 25 unit Insulin Aspart (Novolog) 20 unit SUBCUT TIDMEALS [facility] Last Admin: 08/31/17 12:32 Dose: 20 units Insulin Detemir (Levemir) 40 unit SUBCUT BEDTIME [facility] Last Admin: 08/29/17 20:18 Dose: 40 units Insulin Detemir (Levemir) 30 unit SUBCUT DAILY [facility] Last Admin: 08/30/17 08:30 Dose: 30 units Meclizine HCl (Antivert) 50 mg PO ONETIME ONE Stop: 08/29/17 10:26 Last Admin: 08/29/17 10:43 Dose: 50 mg Ondansetron HCl (Zofran) 4 mg IVPUSH ONETIME ONE Stop: 08/29/17 10:26 Last Admin: 08/29/17 12:20 Dose: 4 mg Rosuvastatin Calcium (Crestor) 5 mg PO DAILY [facility] Last Admin: 08/30/17 10:04 Dose: Not Given Sodium Chloride (Syrex Flush) 5 ml FLUSH Q8HR PRN PRN Reason: Keep Vein Open - Exam General: No: Alert, Oriented, Cooperative, No Acute Distress Lungs: No: Clear to Auscultation, Normal Respiratory Effort Cardiovascular: No: Regular Rate, Regular Rhythm GI/Abdominal Exam: No: Normal Bowel Sounds, Soft, Non-Tender Extremities: No: No Pedal Edema Skin: No: Warm, Dry Wound/Incisions: Other (ulceration observed on the volar surface of the left foot, annular, tissue pink in coloration, moderate serosanguineeous drainage, dressing removed for assessement, reapplied per nursing.) Psy/Mental Status: No: Alert, Normal Affect, Normal Mood - Problem List Review Problem List Initiated/Reviewed/Updated: Yes - Plan Plan:: This 56-year-old patient with long-standing diabetes was admitted through the emergency department due to weakness and dizziness. The patient was brought into the [facility] yesterday however he was not able to be physically brought in so he was sent to the ED he was admitted due to elevated blood sugars and weakness and dizziness and dehydration along with worsening cellulitis left lower extremity. He stated he had 2 episodes of vomiting the day prior otherwise felt good. He woke up assessed his blood sugar and said it was 123 got ready to go to work after eating breakfast soon started experiencing some lightheadedness and weakness and dizziness. Approximately 3 days prior he was placed on Augmentin due to left lower extremity cellulitis in which he does have a chronic wound in which he recently had removal of wound VAC to his left foot. He has been being followed closely by podiatry Dr. Barrow in [place] in due to increased drainage from his wound he was switched to Iodosorb gel, next appointment next week. 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 Significant ED workup Positive orthostatics, fluids given Head CT, no acute process EKG, sinus tachycardia Left foot x-ray, no osseous destruction, soft tissue swelling Broad spectrum Antibiotics started Elevated white count/neutrophilia Primary impression Cellulitis, left lower extremity/foot, continue with IV Zosyn, elevation, shower with Hibiclens, clinically improving, very limited weightbearing Diabetic ulceration, left foot, full-thickness diabetic ulceration. serous drainage, granular base measuring 2.3 x 1.2 cm. No malodor. Mild pain to the first metatarsal. We'll forego x-rays at this time, follow CRP and CBC on Sunday. Hyperosmolar hyperglycemia, improving, IV fluids DC'd. insulin regimen GPL1, basal with SS adjustments. Much improved, reinforced sick day regimen. T2DM; see above, holding metformin Leukocytosis, now resolved, continue broad-spectrum IV Thrombocytosis, reactive Orthostatic hypotension, improving, he is taking good orals, Other chronic problems HLD; Crestor HTN; ARB, creatinine normal Obesity, discussion regarding weight management, he has lost weight. NAME ALERT Overall plan, insulin has been adjusted last evening. limited weightbearing, elevation left lower extremity, Hibiclens scrub, IV antibiotics, adjust insulin sliding scale education on sick day regimen, Monitor CRP and CBC, Discussed case with Dr. Toth.
[2017-09-02] MEDS: Piperacillin/Tazobactam/Dext 3.375 GM in Premix Bag 1 BAG IV SCH ×4 (01:57→20:12)
[2017-09-02] MEDS: Insulin Aspart 100 Units/ML 3 ML Pen SUBCUT SCH ×6 (08:03→17:44)
[2017-09-02] MEDS: Omeprazole 20 MG Cap.CR PO SCH (08:06)
[2017-09-02] MEDS: Rosuvastatin 10 MG Tab PO SCH (08:06)
[2017-09-02] MEDS: Acetaminophen 325 MG Tab PO SCH ×3 (08:06→20:14)
[2017-09-02] MEDS: Aspirin 325 MG Tab.EC PO SCH (08:07)
[2017-09-02] MEDS: Potassium Chloride 10 MEQ Tab.ER PO SCH ×2 (08:07→20:13)
[2017-09-02] MEDS: Escitalopram 10 MG Tab PO SCH (08:07)
[2017-09-02] MEDS: Insulin Detemir 100 Units/ML 3 ML Pen SUBCUT SCH (08:08)
[2017-09-02] MEDS: Liraglutide (rDNA Origin) 0.6 MG/0.1 ML 3 ML Pen SUBCUT SCH (08:09)
--- NOTE | 2017-09-02 11:29 | PCM.PN ---
- General Info Date of Service: 09/02/17 Functional Status: Reports: Other (recent insulin adjustment. Blood sugar 128mg %.). Denies: Pain Controlled, Tolerating Diet, Ambulating - Review of Systems General: Denies: Fever HEENT: Denies: No Symptoms Pulmonary: Denies: No Symptoms Cardiovascular: Denies: Chest Pain, Palpitations Gastrointestinal: Denies: Abdominal Pain, Constipation Musculoskeletal: Denies: Other (left foot ulcer/cellulitis) Skin: Reports: Other (improving cellulitis) Psychiatric: Denies: Confusion, Anxiety - Patient Data Vitals - Most Recent: Last Vital Signs Temp 98.0 F 09/02/17 06:23 Pulse 82 09/02/17 06:23 Resp 18 09/02/17 06:23 BP 122/75 09/02/17 06:23 Pulse Ox 98 09/02/17 06:23 Orthostatic Blood Pressure [ 100/58 Standing] Orthostatic Blood Pressure [ 124/69 Sitting] Orthostatic Blood Pressure [ 126/73 Supine] Weight - Most Recent: 257 lb 11.2 oz I&O - Last 24 Hours: Intake & Output 09/01/17 09/02/17 09/02/17 22:59 06:59 14:59 Intake Total 490 410 65 Output Total 900 1000 Balance -410 -590 65 Lab Results Last 24 Hours: Laboratory Results - last 24 hr 09/01/17 09/01/17 09/01/17 Range/Units 11:41 18:05 20:43 POC Glucose 203 H 119 H 79 (74-106) mg/dl 09/02/17 Range/Units 06:38 POC Glucose 128 H (74-106) mg/dl Farzad Results Last 24 Hours: Microbiology 08/29/17 14:30 Wound Culture - Final Foot, Left Staphylococcus Coagulase Neg Med Orders - Current: Current Medications Acetaminophen (Tylenol) 650 mg PO TID [facility] Last Admin: 09/02/17 08:06 Dose: 650 mg Aspirin (Ecotrin) 325 mg PO DAILY [facility] Last Admin: 09/02/17 08:07 Dose: 325 mg Atropine Sulfate (Atropine 0.1 Mg/Ml) 0 mg IVPUSH ASDIRECTED PRN PRN Reason: Heart Epinephrine HCl (Epinephrine 1:10,000) 1 mg IVPUSH ASDIRECTED PRN PRN Reason: Heart Escitalopram Oxalate (Lexapro) 10 mg PO DAILY [facility] Last Admin: 09/02/17 08:07 Dose: 10 mg Piperacillin/Tazobactam/ (Dextrose 3.375 gm/ Premix) 50 mls @ 100 mls/hr IV Q6H [facility] Last Admin: 09/02/17 07:56 Dose: 100 mls/hr Insulin Aspart (Novolog) 0 unit SUBCUT TIDMEALS [facility] PRN Reason: Protocol Last Admin: 09/02/17 08:05 Dose: Not Given Insulin Aspart (Novolog) 15 unit SUBCUT TIDMEALS [facility] Last Admin: 09/02/17 08:03 Dose: 15 units Insulin Detemir (Levemir) 50 unit SUBCUT DAILY [facility] Last Admin: 09/02/17 08:08 Dose: 50 units Lidocaine HCl (Xylocaine 2%) 0 mg IVPUSH ASDIRECTED PRN PRN Reason: Heart Liraglutide (Victoza) 1.8 mg SUBCUT DAILY [facility] Last Admin: 09/02/17 08:09 Dose: 1.8 mg Nitroglycerin (Nitrostat) 0.4 mg SL ASDIRECTED PRN PRN Reason: Heart Omeprazole (Omeprazole) 20 mg PO ACBREAKFAST [facility] Last Admin: 09/02/17 08:06 Dose: 20 mg Ondansetron HCl (Zofran) 4 mg IV Q6H PRN PRN Reason: Nausea/Vomiting Potassium Chloride (Klor-Con 10) 10 meq PO BID [facility] Last Admin: 09/02/17 08:07 Dose: 10 meq Rosuvastatin Calcium (Crestor) 2.5 mg PO DAILY [facility] Last Admin: 09/02/17 08:06 Dose: 2.5 mg Sodium Chloride (Syrex Flush) 5 ml FLUSH Q8HR PRN PRN Reason: Keep Vein Open Discontinued Medications Sodium Chloride (Normal Saline) 1,000 mls @ 999 mls/hr IV .BOLUS ONE Stop: 08/29/17 11:25 Last Admin: 08/29/17 12:20 Dose: 999 mls/hr Piperacillin/Tazobactam/ (Dextrose 3.375 gm/ Premix) 50 mls @ 100 mls/hr IV Q6H [facility] Last Admin: 08/29/17 14:17 Dose: Not Given Sodium Chloride (Normal Saline) 1,000 mls @ 125 mls/hr IV ASDIRECTED [facility] Stop: 08/30/17 20:00 Last Admin: 08/30/17 17:05 Dose: 125 mls/hr Sodium Chloride (Normal Saline) 1,000 mls @ 90 mls/hr IV ASDIRECTED [facility] Last Admin: 08/31/17 04:25 Dose: 90 mls/hr Sodium Chloride (Normal Saline) 1,000 mls @ 75 mls/hr IV ASDIRECTED [facility] Last Admin: 08/31/17 17:09 Dose: 75 mls/hr Insulin Aspart (Novolog) 25 unit SUBCUT TIDMEALS [facility] Last Admin: 08/31/17 08:08 Dose: 25 unit Insulin Aspart (Novolog) 20 unit SUBCUT TIDMEALS [facility] Last Admin: 08/31/17 12:32 Dose: 20 units Insulin Detemir (Levemir) 40 unit SUBCUT BEDTIME [facility] Last Admin: 08/29/17 20:18 Dose: 40 units Insulin Detemir (Levemir) 30 unit SUBCUT DAILY [facility] Last Admin: 08/30/17 08:30 Dose: 30 units Meclizine HCl (Antivert) 50 mg PO ONETIME ONE Stop: 08/29/17 10:26 Last Admin: 08/29/17 10:43 Dose: 50 mg Ondansetron HCl (Zofran) 4 mg IVPUSH ONETIME ONE Stop: 08/29/17 10:26 Last Admin: 08/29/17 12:20 Dose: 4 mg Rosuvastatin Calcium (Crestor) 5 mg PO DAILY [facility] Last Admin: 08/30/17 10:04 Dose: Not Given Sodium Chloride (Syrex Flush) 5 ml FLUSH Q8HR PRN PRN Reason: Keep Vein Open - Exam General: No: Alert, Oriented, Cooperative, No Acute Distress Neck: No: Supple Lungs: No: Clear to Auscultation, Normal Respiratory Effort Cardiovascular: No: Regular Rate, Regular Rhythm GI/Abdominal Exam: No: Normal Bowel Sounds, Soft, Non-Tender Extremities: No: No Pedal Edema Skin: No: Warm, Dry Wound/Incisions: Other (ulceration of the volar surface of the left foot at the base of the great toe. measurement 1.5 x 2.0 cm. tissue pink. redness extends from surrounding tissue to the great toe area. site is tender to touch/ light palpation.). No: Erythema Improving Psy/Mental Status: No: Alert, Normal Affect, Normal Mood - Problem List Review Problem List Initiated/Reviewed/Updated: Yes - My Orders Last 24 Hours: My Active Orders 09/03/17 05:11 CBC WITH AUTO DIFF [HEME] Routine CRP [C-REACTIVE PROTEIN] [CHEM] Routine - Plan Plan:: This 56-year-old patient with long-standing diabetes was admitted through the emergency department due to weakness and dizziness. The patient was brought into the [facility] yesterday however he was not able to be physically brought in so he was sent to the ED he was admitted due to elevated blood sugars and weakness and dizziness and dehydration along with worsening cellulitis left lower extremity. He stated he had 2 episodes of vomiting the day prior otherwise felt good. He woke up assessed his blood sugar and said it was 123 got ready to go to work after eating breakfast soon started experiencing some lightheadedness and weakness and dizziness. Approximately 3 days prior he was placed on Augmentin due to left lower extremity cellulitis in which he does have a chronic wound in which he recently had removal of wound VAC to his left foot. He has been being followed closely by podiatry Dr. Barrow in [place] in due to increased drainage from his wound he was switched to Iodosorb gel, next appointment next week. 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 Significant ED workup Positive orthostatics, fluids given Head CT, no acute process EKG, sinus tachycardia Left foot x-ray, no osseous destruction, soft tissue swelling Broad spectrum Antibiotics started Elevated white count/neutrophilia Primary impression Cellulitis, left lower extremity/foot, continue with IV Zosyn, elevation, shower with Hibiclens, clinically improving, very limited weightbearing Diabetic ulceration, left foot, full-thickness diabetic ulceration. serous drainage, granular base measuring 1.5 x 2.0 cm. No malodor. Mild pain to the first metatarsal. We'll forego x-rays at this time, follow CRP and CBC on Sunday. Patient does have a follow up appointment scheduled with Dr. Juarez, podiatry on Sunday. Hyperosmolar hyperglycemia, improving, IV fluids DC'd yesterday. Patient taking oral fluids well. insulin regimen GPL1, basal with SS adjustments. Much improved. T2DM; see above, holding metformin Leukocytosis, now resolved, continue broad-spectrum IV Thrombocytosis, reactive Orthostatic hypotension, improving, he is taking good orals, Other chronic problems HLD; Crestor HTN; ARB, creatinine normal Obesity, discussion regarding weight management, he has lost weight. NAME ALERT Overall plan, insulin has been adjusted. Blood sugar 128mg %. limited weightbearing, elevation left lower extremity, Hibiclens scrub, IV antibiotics, adjust insulin sliding scale education on sick day regimen, Monitor CRP and CBC , Discussed case with Dr. Toth.
[2017-09-03] MEDS: Piperacillin/Tazobactam/Dext 3.375 GM in Premix Bag 1 BAG IV SCH ×2 (02:00→08:29)
[2017-09-03 06:35] VITALS: BP 117/79
[2017-09-03] MEDS: Rosuvastatin 10 MG Tab PO SCH (08:05)
[2017-09-03] MEDS: Omeprazole 20 MG Cap.CR PO SCH (08:05)
[2017-09-03] MEDS: Aspirin 325 MG Tab.EC PO SCH (08:05)
[2017-09-03] MEDS: Potassium Chloride 10 MEQ Tab.ER PO SCH (08:05)
[2017-09-03] MEDS: Liraglutide (rDNA Origin) 0.6 MG/0.1 ML 3 ML Pen SUBCUT SCH (08:06)
[2017-09-03] MEDS: Acetaminophen 325 MG Tab PO SCH (08:06)
[2017-09-03] MEDS: Escitalopram 10 MG Tab PO SCH (08:06)
[2017-09-03] MEDS: Insulin Aspart 100 Units/ML 3 ML Pen SUBCUT SCH ×2 (08:07)
[2017-09-03] MEDS: Insulin Detemir 100 Units/ML 3 ML Pen SUBCUT SCH (08:08)
--- NOTE | 2017-09-04 09:50 | DISCH ---
Bernardo Huertas came in the hospital inpatient on 08/29/2017, discharged from inpatient on 09/03/2017. FINAL DIAGNOSES: 1. Cellulitis, left lower extremity, left foot, resolved. 2. Diabetic ulceration, full-thickness diabetic ulceration, serous drainage, much improved after debridement. 3. Hyperosmolar hyperglycemia, improved. 4. Hypoglycemia episodes, insulin recently reduced. 5. Diabetes type 2. 6. Leukocytosis, now resolved. 7. Thrombocytosis, reactive. 8. Orthostatic hypotension, resolved. 9. Hyperlipidemia, on Crestor. 10.Hypertension, on ARB. 11.Obesity. HISTORY: This 56-year-old gentleman with longstanding diabetes, was admitted through the emergency department due to weakness and dizziness. It was difficult for him to be getting out of the vehicle. He was definitively dehydrated. He did have a high blood glucose at almost 400. He was admitted for worsening cellulitis and hypotension and weakness. HOSPITAL COURSE: Hospital course went fairly well. He did have some positive orthostatics on admission. Fluids were given. They were slowly titrated down and discontinued on discharge. He did have increased oral intake. Head CT on admission showed no acute process. EKG on admission shows sinus tachycardia, likely due to dehydration. X-rays of left foot were taken, it showed no osseous destruction, however, did show soft tissue edema. He was started on broad- spectrum antibiotics. He had elevated white count and neutrophilia on admission, those were normal on discharge. For his left lower extremity, we did elevate the foot. I did perform a sharp debridement, three days prior to him being discharged, this did show some improvement. Cultures were taken of his foot showed Staphylococcus coagulase negative, however, he did not have any central lines, so we felt this was not infectious worth noting, however, we did continue him on broad-spectrum antibiotics. He is allergic to vancomycin. We continued on his Crestor for hyperlipidemia. He did have some mild complications regarding hypoglycemic episodes, one time it was as low as 29, carbohydrates were given, held his metformin on admission. I adjusted his Lantus, reduced it to 50 units a day, plus made daily, this was a change from 30 and 40, also decreased his mealtime insulin from 25 units at mealtime to 15 units at mealtime, also had him on a sliding scale, which I adjusted that. He had significant improvement. PHYSICAL EXAMINATION: GENERAL: On discharge, the patient alert and oriented. LUNGS: Clear to auscultation. CV: Regular rate and rhythm. He had no edema. EXTREMITIES: Left foot shows some clear serous drainage. No malodor. Dressing was slightly moist, did show some signs of healing. No erythema to the top of his foot. LABORATORY DATA: White count on discharge 9.7, 11.6 hemoglobin, 34.5 hematocrit. C-reactive protein 1.4, glucose on discharge 164. MEDICATIONS: The patient to continue on outpatient Augmentin, mealtime insulin aspart to 15 units mealtime (reduced from 25), Lantus 50 units daily reduced from 70. DISPOSITION: The patient will be discharged from the hospital. He does have a podiatry appointment tomorrow at [facility]. He is to monitor for any fevers, increased pain, or swelling, any more redness, any nausea or vomiting, or any dizziness. Stay well hydrated. Check his blood sugars more frequently. He can adjust his insulin up or down by 2 units per meal depending on the blood glucose level. He is to notify me if it below 90, he may need further adjustments. However, I do anticipate his diet will consist of higher glycemic index foods, so he most likely will need increased insulin. /[id number]
== END 2017-09-03 11:30 | disposition home or self-care (01) | DRG 380 ==
LOC: KA.ED 09:55 → KA.MS 12:30 → UNDODISIN 09-03 11:30
PROVIDERS: ADMIT Physician Assistant Medical; ATTEND Family Medicine
PROC: 0JBR0ZZ Excision of Left Foot Subcutaneous Tissue and Fascia, Open Approach (ICD-10-PCS; principal; 2017-08-31)
DX: E11.628 Type 2 diabetes mellitus with other skin complications (principal); L03.116 Cellulitis of left lower limb; B95.7 Other staphylococcus as the cause of diseases classified elsewhere; E11.65 Type 2 diabetes mellitus with hyperglycemia; E11.621 Type 2 diabetes mellitus with foot ulcer; E11.649 Type 2 diabetes mellitus with hypoglycemia without coma; L97.529 Non-pressure chronic ulcer of other part of left foot with unspecified severity; E86.0 Dehydration; D72.829 Elevated white blood cell count, unspecified; D47.3 Essential (hemorrhagic) thrombocythemia; I95.1 Orthostatic hypotension; E78.5 Hyperlipidemia, unspecified; I10 Essential (primary) hypertension; E66.9 Obesity, unspecified; Z79.4 Long term (current) use of insulin; Z79.899 Other long term (current) drug therapy
CPT/HCPCS: 36415; 70450; 71020; 73630-LT; 80048; 80053; 81001; 82550; 82553; 82962; 84484; 85025; 85651; 86140; 87070; 87077; 93005; 99285; A9270-GY; J1815-GY; J2405; J2543; J3490; J7030

== ENCOUNTER 2017-09-10 14:21 | Inpatient (IN) | payer BC ==
[2017-09-10] MEDS ORDERED: Polyethylene Glycol 3350 Powder 17 GM Packet PO PRN (20:58)
[2017-09-10] MEDS ORDERED: [UNRECOGNIZED DRUG - OTHER] TOP PRN (20:58)
[2017-09-10] MEDS: Insulin Aspart 100 Units/ML 3 ML Pen SUBCUT SCH ×2 (21:51→21:52)
[2017-09-10] MEDS: Rosuvastatin 10 MG Tab PO SCH (21:52)
[2017-09-10] MEDS: Potassium Chloride 10 MEQ Tab.ER PO SCH (21:52)
[2017-09-10] MEDS: Acetaminophen 325 MG Tab PO SCH (21:53)
[2017-09-10] MEDS ORDERED: Sodium Chloride 0.9% 10 ML Syringe FLUSH PRN (22:34)
[2017-09-11] MEDS: diphenhydrAMINE 25 MG Cap PO SCH (06:56)
[2017-09-11] MEDS: Omeprazole 20 MG Cap.CR PO SCH (07:29)
[2017-09-11] MEDS ORDERED: SOD CHLORIDE IV SCH (07:30)
[2017-09-11] MEDS ORDERED: VANCOMYCIN IV SCH (07:30)
[2017-09-11] MEDS ORDERED: [UNRECOGNIZED DRUG - OTHER] IV SCH (07:30)
[2017-09-11] MEDS: Aspirin 325 MG Tab.EC PO SCH (08:00)
[2017-09-11] MEDS: Losartan 25 MG Tab PO SCH (08:00)
[2017-09-11] MEDS ORDERED: Calcium Citrate/Vitamin D3 315 MG-250 Unit Tab PO SCH (08:00)
[2017-09-11] MEDS: metFORMIN 500 MG Tab PO SCH ×2 (08:00→18:02)
[2017-09-11] MEDS: Acetaminophen 325 MG Tab PO SCH ×3 (08:00→20:31)
[2017-09-11] MEDS: Potassium Chloride 10 MEQ Tab.ER PO SCH ×2 (08:01→20:31)
[2017-09-11] MEDS: Insulin Aspart 100 Units/ML 3 ML Pen SUBCUT SCH ×7 (08:01→21:14)
[2017-09-11] MEDS: Insulin Detemir 100 Units/ML 3 ML Pen SUBCUT SCH (08:01)
[2017-09-11] MEDS: Escitalopram 10 MG Tab PO SCH (08:01)
[2017-09-11] MEDS: Liraglutide (rDNA Origin) 0.6 MG/0.1 ML 3 ML Pen SUBCUT SCH (09:00)
--- NOTE | 2017-09-11 09:50 | PCM.HP ---
H&P History of Present Illness - General Date of Service: 09/11/17 Admit Problem/Dx: Admission Diagnosis/Problem Admission Diagnosis/Problem Osteomyelitis of toe of left foot - History of Present Illness Initial Comments - Free Text/Narative: 56-year-old T2 DM patient was transferred up here from [facility] after undergoing amputation left great toe due to chronic osteomyelitis with draining sinuses. Patient was admitted here at [facility] acutely for cellulitis and concern for osteomyelitis although initial x-rays were negative for also myelitis. MRI was scheduled however MRI truck broke down so patient was eventually discharged to follow-up with podiatry [facility] where he was exquisitely underwent first ray amputation of his left great toe. He was placed in swing bed with IV antibiotics vancomycin via PICC line long with rehabilitation and physical therapy for at least 1 week. - Related Data Allergies/Adverse Reactions: Allergies Allergy/AdvReac Type Severity Reaction Status Date / Time vancomycin Allergy Intermediate Rash Verified 09/10/17 16:24 Sulfa (Sulfonamide Allergy Shortness Verified 09/10/17 17:56 Antibiotics) of Breath Home Medications: Home Meds Acetaminophen [Tylenol] 650 mg PO TID 02/27/17 [History] Aspirin [Ecotrin] 325 mg PO DAILY 02/27/17 [History] Calcium Carbonate/Vitamin D3 [Calcium 600 + Vit D 400 Softgl] 1 tab PO BIDMEALS 02/27/17 [History] Insulin Aspart [NovoLOG] 4 - 15 units SQ WITHMEALSANDBED 02/27/17 [History] Omeprazole 20 mg PO ACBREAKFAST 02/27/17 [History] Polyethylene Glycol 3350 [MiraLAX] 17 gm PO DAILY PRN 02/27/17 [History] Rosuvastatin [Crestor] 5 mg PO BEDTIME 02/27/17 [History] Liraglutide [Victoza] 1.8 mg SUBCUT DAILY 03/14/17 [History] metFORMIN [Glucophage] 1,000 mg PO BIDMEALS 03/14/17 [History] Escitalopram [Lexapro] 10 mg PO DAILY 05/11/17 [History] Potassium Chloride 10 meq PO BID 05/11/17 [History] Idosorb* 1 applic TOP DAILY PRN 08/29/17 [History] Losartan Potassium 25 mg PO DAILY 08/29/17 [History] Insulin Aspart [NovoLOG] 15 units SQ TIDMEALS 09/10/17 [History] Insulin Glarg,Human.Rec.Analog [LantUS Solostar] 30 units SQ DAILY 09/10/17 [ History] Vancomycin/0.9 % Sod Chloride [Vanco 1.5 gm/250 ml-0.9% NaCl] 1.5 gm IV Q18H [History] diphenhydrAMINE [Benadryl] 25 mg PO Q18H 09/10/17 [History] Past Medical History HEENT History: Reports: Impaired Vision Cardiovascular History: Reports: High Cholesterol, Hypertension Respiratory History: Reports: None Gastrointestinal History: Reports: GERD Genitourinary History: Reports: Chronic Renal Insuffiency Musculoskeletal History: Reports: Amputation Other Musculoskeletal History: L great toe amputation 09/06/17 Neurological History: Reports: Neuropathy, Diabetic Psychiatric History: Reports: Anxiety, Depression, Panic Attack Endocrine/Metabolic History: Reports: Diabetes, Type II, IDDM, Obesity/BMI 30+ Dermatologic History: Reports: Cellulitis - Infectious Disease History Infectious Disease History: Reports: MRSA - Past Surgical History HEENT Surgical History: Reports: None Cardiovascular Surgical History: Reports: None Respiratory Surgical History: Reports: None GI Surgical History: Reports: Appendectomy, Cholecystectomy, Colonoscopy Male Surgical History: Reports: None Endocrine Surgical History: Reports: None Neurological Surgical History: Reports: None Musculoskeletal Surgical History: Reports: Amputation, Arthroscopic Knee Dermatological Surgical History: Reports: None Social & Family History - Family History Family Medical History: Noncontributory HEENT: Reports: None Cardiac: Reports: None Respiratory: Reports: None GI: Reports: None : Reports: None OBGYN: Reports: None Musculoskeletal: Reports: None Neurological: Reports: None Psychiatric: Reports: None Endocrine/Metabolic: Reports: Diabetes, type II Hematologic: Reports: None Immunologic: Reports: None Dermatologic: Reports: None Oncologic: Reports: Prostate - Tobacco Use Smoking Status *Q: Never Smoker Second Hand Smoke Exposure: No - Caffeine Use Caffeine Use: Reports: Soda - Recreational Drug Use Recreational Drug Use: No H&P Review of Systems - Review of Systems: Review Of Systems: See Below General: Reports: No Symptoms HEENT: Reports: No Symptoms Pulmonary: Reports: No Symptoms Cardiovascular: Reports: No Symptoms Gastrointestinal: Reports: No Symptoms Genitourinary: Reports: No Symptoms Musculoskeletal: Denies: Foot Pain Skin: Reports: Bruising, Wound (Left great toe sutures intact, no wound dehiscence,, right great toe present on admission drainage, skin avulsion ). Denies: Dryness, Pruritis, Rash Psychiatric: Reports: No Symptoms Neurological: Reports: Gait Disturbance. Denies: Paresthesia, Weakness Hematologic/Lymphatic: Reports: No Symptoms Immunologic: Reports: No Symptoms Exam - Exam Exam: See Below - Vital Signs Vital Signs: Last Vital Signs Temp 97.4 F 09/11/17 07:00 Pulse 77 09/11/17 07:00 Resp 16 09/11/17 07:00 BP 111/78 09/11/17 08:00 Pulse Ox 96 09/11/17 07:00 Weight: 262 lb 9.6 oz - Exam Quality Assessment: No: Supplemental Oxygen General: Alert, Oriented, 4 HEENT: PERRLA, Hearing Intact, Mucosa Moist & [place] De [place], Nares Patent, Normal Nasal Septum, Posterior Pharynx Clear, Conjunctiva Clear, EOMI, EACs Clear, TMs Clear Neck: Supple, Trachea Midline, 2 Lungs: Clear to Auscultation, Normal Respiratory Effort Cardiovascular: Regular Rate, Regular Rhythm GI/Abdominal Exam: Normal Bowel Sounds, Soft, Non-Tender, No Organomegaly, No Distention, No Abnormal Bruit, No Mass, Pelvis Stable Rectal (Males) Exam: Deferred Back Exam: No: CVA Tenderness (L), CVA Tenderness (R) Extremities: No Pedal Edema Peripheral Pulses: 1+: Popliteal (L), Popliteal (R), 2+: Radial (L), Radial (R) Skin: Wound, Incision (Stubbed right great toe, skin evulsion, draining, left great toe,'s will monitor for any further dehisced area, no erythema, no signs of infection) - Patient Data Lab Results Last 24 hrs: Laboratory Results - last 24 hr 09/10/17 09/11/17 Range/Units 21:51 06:53 POC Glucose 118 H 108 H (74-106) mg/dl *Q Meaningful Use (ADM) - VTE *Q VTE Criteria *Q: - Stroke *Q Stroke Criteria *Q: - AMI *Q AMI Criteria *Q: Problem List Initiated/Reviewed/Updated: Yes Orders Last 24hrs: Active Orders 24 hr Category Date Time Status Admission Status [Patient Status] [ADT] Routine ADT 09/10/17 20:00 Ordered Blood Glucose Check, Bedside [RC] QIDACANDBED Care 09/10/17 16:26 Active Communication Order [RC] DAILY Care 09/10/17 16:20 Active Communication Order [RC] DAILY Care 09/10/17 16:22 Active Communication Order [RC] DAILY Care 09/10/17 17:32 Active Communication Order [RC] DAILY Care 09/11/17 10:00 Active Communication Order [RC] WEEKLY Care 09/11/17 10:00 Active RT Incentive Spirometry [RC] QID Care 09/11/17 00:04 Active Consult to Physical Therapy [PT Evaluation and Cons 09/10/17 17:24 Active Treatment] [CONS] Routine ADA Diabetic [[place] [employer] Diet] [DIET Diet 09/11/17 Breakfast Active ] BLOOD UREA NITROGEN,BUN [CHEM] Lab 10/17/17 06:00 Uncollected BLOOD UREA NITROGEN,BUN [CHEM] Lab 09/12/17 06:00 Uncollected BLOOD UREA NITROGEN,BUN [CHEM] Lab 09/19/17 06:00 Uncollected BLOOD UREA NITROGEN,BUN [CHEM] Lab 09/26/17 06:00 Uncollected BLOOD UREA NITROGEN,BUN [CHEM] Lab 10/03/17 06:00 Uncollected BLOOD UREA NITROGEN,BUN [CHEM] Lab 10/10/17 06:00 Uncollected C-REACTIVE PROTEIN [CHEM] Routine Lab 09/19/17 06:00 Ordered CBC WITH AUTO DIFF [HEME] Lab 10/17/17 18:23 Uncollected CBC WITH AUTO DIFF [HEME] Lab 09/12/17 18:23 Uncollected CBC WITH AUTO DIFF [HEME] Lab 09/19/17 18:23 Uncollected CBC WITH AUTO DIFF [HEME] Lab 09/26/17 18:23 Uncollected CBC WITH AUTO DIFF [HEME] Lab 10/03/17 18:23 Uncollected CBC WITH AUTO DIFF [HEME] Lab 10/10/17 18:23 Uncollected CREATININE W/GFR [CHEM] WEEKLY Lab 10/17/17 06:00 Ordered CREATININE W/GFR [CHEM] WEEKLY Lab 09/12/17 06:00 Ordered CREATININE W/GFR [CHEM] WEEKLY Lab 09/19/17 06:00 Ordered CREATININE W/GFR [CHEM] WEEKLY Lab 09/26/17 06:00 Ordered CREATININE W/GFR [CHEM] WEEKLY Lab 10/03/17 06:00 Ordered CREATININE W/GFR [CHEM] WEEKLY Lab 10/10/17 06:00 Ordered SEDIMENTATION RATE MANUAL [HEME] Routine Lab 09/19/17 06:00 Ordered VANCOMYCIN TROUGH [CHEM] Routine Lab 09/12/17 19:00 Ordered Acetaminophen [Tylenol] Med 09/10/17 21:00 Active 650 mg PO TID Aspirin [Ecotrin] Med 09/11/17 09:00 Active 325 mg PO DAILY Bacitracin/Neomycin/Polymyxin [Triple Antibiotic Oint] Med 09/11/17 09:45 Active 0 gm TOP DAILY Calcium Citrate/Vitamin D3 [Calcium Citrate + D] Med 09/11/17 08:00 Active 1 tab PO BIDMEALS Escitalopram [Lexapro] Med 09/11/17 09:00 Active 10 mg PO DAILY Idosorb* Med 09/10/17 20:58 Pending 1 applic TOP DAILY PRN Insulin Aspart [NovoLOG] Med 09/11/17 08:00 Active 15 unit SUBCUT TIDMEALS Insulin Aspart [NovoLOG] Med 09/10/17 21:00 Active See Protocol SUBCUT WITHMEALSANDBED Insulin Detemir [Levemir] Med 09/11/17 09:00 Active 30 unit SUBCUT DAILY Liraglutide [Victoza] Med 09/11/17 09:00 Active 1.8 mg SUBCUT DAILY Losartan [Cozaar] Med 09/11/17 09:00 Active 25 mg PO DAILY Omeprazole Med 09/11/17 07:30 Active 20 mg PO ACBREAKFAST Polyethylene Glycol 3350 [MiraLAX] Med 09/10/17 20:58 Active 17 gm PO DAILY PRN Potassium Chloride [Klor-Con 10] Med 09/10/17 21:00 Active 10 meq PO BID Rosuvastatin [Crestor] Med 09/10/17 21:00 Active 5 mg PO BEDTIME Sodium Chloride 0.9% [Saline Flush] Med 09/10/17 22:34 Active 10 ml FLUSH Q8H PRN Vancomycin 1.5 gm Med 09/11/17 07:30 Active Sodium Chloride 0.9% [Normal Saline] 250 ml IV Q18H diphenhydrAMINE [Benadryl] Med 09/11/17 07:00 Active 25 mg PO Q18H metFORMIN [Glucophage] Med 09/11/17 08:00 Active 1,000 mg PO BIDMEALS Resuscitation Status Routine Resus Stat 09/10/17 16:26 Ordered Medication Orders Acetaminophen (Tylenol) 650 mg PO TID [facility] Last Admin: 09/11/17 08:00 Dose: 650 mg Admin: 09/10/17 21:53 Dose: 650 mg Aspirin (Ecotrin) 325 mg PO DAILY [facility] Last Admin: 09/11/17 08:00 Dose: 325 mg Calcium Citrate (Calcium Citrate + D) 1 tab PO BIDMEALS [facility] Last Admin: 09/11/17 08:00 Dose: 1 tab Diphenhydramine HCl (Benadryl) 25 mg PO Q18H [facility] Last Admin: 09/11/17 06:56 Dose: 25 mg Escitalopram Oxalate (Lexapro) 10 mg PO DAILY [facility] Last Admin: 09/11/17 08:01 Dose: 10 mg Vancomycin HCl 1.5 gm/ Sodium (Chloride) 250 mls @ 166.667 mls/hr IV Q18H [facility] Last Admin: 09/11/17 07:29 Dose: 166.667 mls/hr Insulin Aspart (Novolog) 15 unit SUBCUT TIDMEALS [facility] Last Admin: 09/11/17 08:01 Dose: 15 units Insulin Aspart (Novolog) 0 unit SUBCUT WITHMEALSANDBED [facility] PRN Reason: Protocol Last Admin: 09/11/17 08:02 Dose: Admin: 09/10/17 21:52 Dose: Not Given Admin: 09/10/17 21:51 Dose: Not Given Insulin Detemir (Levemir) 30 unit SUBCUT DAILY [facility] Last Admin: 09/11/17 08:01 Dose: 30 units Liraglutide (Victoza) 1.8 mg SUBCUT DAILY [facility] Last Admin: 09/11/17 09:00 Dose: 1.8 mg Losartan Potassium (Cozaar) 25 mg PO DAILY [facility] Last Admin: 09/11/17 08:00 Dose: 25 mg Metformin HCl (Glucophage) 1,000 mg PO BIDMEALS [facility] Last Admin: 09/11/17 08:00 Dose: 1,000 mg Neomycin/Polymyxin/Bacitracin (Triple Antibiotic Oint) 0 gm TOP DAILY [facility] Idosorb* 1 Applic 1 applic TOP DAILY PRN PRN Reason: affected areas Omeprazole (Omeprazole) 20 mg PO ACBREAKFAST [facility] Last Admin: 09/11/17 07:29 Dose: 20 mg Polyethylene Glycol (Miralax) 17 gm PO DAILY PRN PRN Reason: Constipation Potassium Chloride (Klor-Con 10) 10 meq PO BID [facility] Last Admin: 09/11/17 08:01 Dose: 10 meq Admin: 09/10/17 21:52 Dose: 10 meq Rosuvastatin Calcium (Crestor) 5 mg PO BEDTIME [facility] Last Admin: 09/10/17 21:52 Dose: 5 mg Sodium Chloride (Saline Flush) 10 ml FLUSH Q8H PRN PRN Reason: IV Use Assessment/Plan Comment:: HISTORY OF PRESENT ILLNESS 56-year-old T2 DM patient was transferred up here from [facility] after undergoing amputation left great toe due to chronic osteomyelitis with draining sinuses. Patient was admitted here at [facility] acutely for cellulitis and concern for osteomyelitis although initial x-rays were negative for also myelitis. MRI was scheduled however MRI truck broke down so patient was eventually discharged to follow-up with podiatry [facility] where he was exquisitely underwent first ray amputation of his left great toe. He was placed in swing bed with IV antibiotics vancomycin via PICC line long with rehabilitation and physical therapy for at least 1 week. Hospital course [facility] Patient was taken to OR on HD#2 and underwent 1st ray amputation with removal of all nonviable tissue. Patient was returned to floor for continued IV antibiotics and dressing changes. Patient was seen by HSB throughout and had no events. Patient was seen by ID via [facility] and discharge to [facility] for physical therapy and rehabilitation and dressing change and IV antibiotics. Principal Problem: Status post 1st ray amputation left great toe, vancomycin PICC line, pharmacy trough, Wound care, Continue daily by nursing staff q24 hours. Betadine soaked gauze, kerlix, coban dressing, strict NWB left LE. Use a wheelchair for exercise Active Problems: Esophageal reflux Diabetic polyneuropathy associated with diabetes mellitus due to underlying condition HLD; Crestor HTN; ARB, creatinine normal T2DM, previously reduced Lantus/mealtime insulin coverage. We'll monitor for ongoing adjustment needs. Obesity with body mass index of 30.0-39.9. 1800 ADA calorie reduction MRSA (methicillin resistant Staphylococcus aureus) infection Activity Strict NWB left LE. Use a wheelchair for exercise Full CODE STATUS Future appointments/Consultations Scheduled for Telemedicine at [facility] on SundaySeptember 26 at 1145am.
[2017-09-11] MEDS: Bacitracin/Neomycin/Polymyxin B Oint 28.4 GM Tube TOP SCH (10:17)
[2017-09-11] MEDS: Calcium Citrate/Vitamin D3 315 MG-250 Unit Tab PO SCH (18:03)
[2017-09-11] MEDS: Rosuvastatin 10 MG Tab PO SCH (20:30)
[2017-09-11] MEDS: Enoxaparin 40 MG/0.4 ML Syringe SUBCUT SCH (20:31)
[2017-09-12] MEDS: diphenhydrAMINE 25 MG Cap PO SCH ×2 (01:06→19:58)
[2017-09-12] MEDS: Omeprazole 20 MG Cap.CR PO SCH (07:36)
[2017-09-12] MEDS: Insulin Aspart 100 Units/ML 3 ML Pen SUBCUT SCH ×6 (07:41→22:56)
[2017-09-12] MEDS: metFORMIN 500 MG Tab PO SCH ×2 (08:00→18:01)
[2017-09-12] MEDS: Escitalopram 10 MG Tab PO SCH (08:00)
[2017-09-12] MEDS: Losartan 25 MG Tab PO SCH (08:00)
[2017-09-12] MEDS: Potassium Chloride 10 MEQ Tab.ER PO SCH ×2 (08:00→20:49)
[2017-09-12] MEDS ORDERED: Insulin Aspart 100 Units/ML 3 ML Pen SUBCUT SCH ×2 (08:00→09:30)
[2017-09-12] MEDS: Aspirin 325 MG Tab.EC PO SCH (08:00)
[2017-09-12] MEDS: Calcium Citrate/Vitamin D3 315 MG-250 Unit Tab PO SCH ×2 (08:00→18:01)
[2017-09-12] MEDS: Acetaminophen 325 MG Tab PO SCH ×3 (08:01→20:49)
[2017-09-12] MEDS: Liraglutide (rDNA Origin) 0.6 MG/0.1 ML 3 ML Pen SUBCUT SCH (09:46)
[2017-09-12] MEDS: Insulin Detemir 100 Units/ML 3 ML Pen SUBCUT SCH (09:47)
[2017-09-12] MEDS: Bacitracin/Neomycin/Polymyxin B Oint 28.4 GM Tube TOP SCH (09:47)
[2017-09-12] MEDS: Sodium Chloride 0.9% 10 ML Syringe FLUSH PRN (20:40)
[2017-09-12] MEDS: Rosuvastatin 10 MG Tab PO SCH (20:49)
[2017-09-12] MEDS: Enoxaparin 40 MG/0.4 ML Syringe SUBCUT SCH (20:50)
[2017-09-13] MEDS: Omeprazole 20 MG Cap.CR PO SCH (08:01)
[2017-09-13] MEDS: metFORMIN 500 MG Tab PO SCH ×2 (08:02→17:59)
[2017-09-13] MEDS: Insulin Aspart 100 Units/ML 3 ML Pen SUBCUT SCH ×7 (08:02→21:04)
[2017-09-13] MEDS: Calcium Citrate/Vitamin D3 315 MG-250 Unit Tab PO SCH ×2 (08:02→17:59)
[2017-09-13] MEDS: Losartan 25 MG Tab PO SCH (08:03)
[2017-09-13] MEDS: Aspirin 325 MG Tab.EC PO SCH (08:04)
[2017-09-13] MEDS: Potassium Chloride 10 MEQ Tab.ER PO SCH ×2 (08:04→20:26)
[2017-09-13] MEDS: Escitalopram 10 MG Tab PO SCH (08:05)
[2017-09-13] MEDS: Acetaminophen 325 MG Tab PO SCH ×3 (08:05→20:26)
[2017-09-13] MEDS: Insulin Detemir 100 Units/ML 3 ML Pen SUBCUT SCH (08:05)
[2017-09-13] MEDS: Liraglutide (rDNA Origin) 0.6 MG/0.1 ML 3 ML Pen SUBCUT SCH (08:06)
[2017-09-13] MEDS: Bacitracin/Neomycin/Polymyxin B Oint 28.4 GM Tube TOP SCH (09:00)
--- NOTE | 2017-09-13 09:52 | PCM.PN ---
- General Info Date of Service: 09/13/17 Functional Status: Reports: Pain Controlled, Tolerating Diet, Ambulating ( Ambulating however no weightbearing LLE--uses special walker), New Symptoms ( Continues to have low to borderline low blood sugars, continue adjusting and reducing insulin) - Review of Systems General: Denies: Fever, Weakness, Fatigue, Malaise, Chills, Night Sweats HEENT: Reports: No Symptoms Pulmonary: Reports: No Symptoms Cardiovascular: Reports: No Symptoms Gastrointestinal: Reports: No Symptoms Genitourinary: Reports: No Symptoms Musculoskeletal: Denies: Back Pain, Leg Pain, Foot Pain Skin: Reports: Other (Healing wound left lower great toe) Neurological: Reports: Difficulty Walking, Gait Disturbance (NWB; LLE). Denies : Confusion Psychiatric: Reports: No Symptoms - Patient Data Vitals - Most Recent: Last Vital Signs Temp 98.2 F 09/13/17 06:18 Pulse 76 09/13/17 08:30 Resp 16 09/13/17 06:18 BP 123/69 09/13/17 08:03 Pulse Ox 96 09/13/17 06:18 Weight - Most Recent: 262 lb 9.6 oz I&O - Last 24 Hours: Intake & Output 09/12/17 09/13/17 09/13/17 22:59 06:59 14:59 Intake Total 900 300 Output Total 775 550 Balance 125 -250 Lab Results Last 24 Hours: Laboratory Results - last 24 hr 09/12/17 09/12/17 09/12/17 Range/Units 11:40 15:37 17:32 POC Glucose 135 H 93 94 (74-106) mg/dl Vancomycin Trough (10-20) ug/mL 09/12/17 09/12/17 09/13/17 Range/Units 19:15 20:48 06:52 POC Glucose 87 123 H (74-106) mg/dl Vancomycin Trough 16.8 (10-20) ug/mL [facility] Results Last 24 Hours: Microbiology 09/11/17 09:50 Gram Stain - Final Toe, Right - Right Big Wound Culture - Final 09/11/17 09:50 Gram Stain - Final Foot, Left Wound Culture - Final Med Orders - Current: Current Medications Acetaminophen (Tylenol) 650 mg PO TID [facility] Last Admin: 09/13/17 08:05 Dose: 650 mg Aspirin (Ecotrin) 325 mg PO DAILY [facility] Last Admin: 09/13/17 08:04 Dose: 325 mg Calcium Citrate (Calcium Citrate + D) 2 tab PO BIDMEALS [facility] Last Admin: 09/13/17 08:02 Dose: 2 tab Diphenhydramine HCl (Benadryl) 25 mg PO Q18H [facility] Last Admin: 09/12/17 19:58 Dose: 25 mg Enoxaparin Sodium (Lovenox) 40 mg SUBCUT BEDTIME [facility] Last Admin: 09/12/17 20:50 Dose: 40 mg Escitalopram Oxalate (Lexapro) 10 mg PO DAILY [facility] Last Admin: 09/13/17 08:05 Dose: 10 mg Vancomycin HCl 1.5 gm/ Sodium (Chloride) 250 mls @ 166.667 mls/hr IV Q18H [facility] Last Admin: 09/12/17 20:42 Dose: 166.667 mls/hr Insulin Aspart (Novolog) 0 unit SUBCUT WITHMEALSANDBED [facility] PRN Reason: Protocol Last Admin: 09/13/17 08:03 Dose: Not Given Insulin Aspart (Novolog) 8 unit SUBCUT 0800,1800 [facility] Last Admin: 09/13/17 08:02 Dose: 8 units Insulin Aspart (Novolog) 5 unit SUBCUT 1200 [facility] Last Admin: 09/12/17 12:02 Dose: 5 units Insulin Detemir (Levemir) 30 unit SUBCUT DAILY [facility] Last Admin: 09/13/17 08:05 Dose: 30 units Liraglutide (Victoza) 1.8 mg SUBCUT DAILY [facility] Last Admin: 09/13/17 08:06 Dose: 1.8 mg Losartan Potassium (Cozaar) 25 mg PO DAILY [facility] Last Admin: 09/13/17 08:03 Dose: 25 mg Metformin HCl (Glucophage) 1,000 mg PO BIDMEALS [facility] Last Admin: 09/13/17 08:02 Dose: 1,000 mg Neomycin/Polymyxin/Bacitracin (Triple Antibiotic Oint) 0 gm TOP DAILY [facility] Last Admin: 09/12/17 09:47 Dose: 1 applic Omeprazole (Omeprazole) 20 mg PO ACBREAKFAST [facility] Last Admin: 09/13/17 08:01 Dose: 20 mg Polyethylene Glycol (Miralax) 17 gm PO DAILY PRN PRN Reason: Constipation Potassium Chloride (Klor-Con 10) 10 meq PO BID [facility] Last Admin: 09/13/17 08:04 Dose: 10 meq Rosuvastatin Calcium (Crestor) 5 mg PO BEDTIME [facility] Last Admin: 09/12/17 20:49 Dose: 5 mg Sodium Chloride (Saline Flush) 10 ml FLUSH ASDIRECTED PRN PRN Reason: IV Use Last Admin: 09/12/17 20:40 Dose: 10 ml Vancomycin HCl (Pharmacy To Dose - Vancomycin) 0 dose .XX ASDIRECTED [facility] Discontinued Medications Calcium Citrate (Calcium Citrate + D) 1 tab PO BIDMEALS [facility] Last Admin: 09/11/17 08:00 Dose: 1 tab Insulin Aspart (Novolog) 15 unit SUBCUT TIDMEALS [facility] Last Admin: 09/11/17 12:01 Dose: 15 units Insulin Aspart (Novolog) 12 unit SUBCUT TIDMEALS [facility] Last Admin: 09/12/17 09:50 Dose: Not Given Insulin Aspart (Novolog) 8 unit SUBCUT BID [facility] Last Admin: 09/12/17 09:47 Dose: 8 units Insulin Aspart (Novolog) 5 unit SUBCUT DAILY [facility] Non-Formulary Medication (Vancomycin/0.9 % Sod Chloride [Vanco 1.5 Gm/250 Ml-0.9 % Nacl]) 1.5 gm IV Q18H [facility] Sodium Chloride (Saline Flush) 10 ml FLUSH Q8H PRN PRN Reason: IV Use - Exam Quality Assessment: Central Line/PICC (No signs of infection, dual-lumen), DVT Prophylaxis. No: Supplemental Oxygen, Skin Breakdown General: Alert, Oriented Neck: Supple Lungs: Clear to Auscultation, Normal Respiratory Effort Cardiovascular: Regular Rate, Regular Rhythm GI/Abdominal Exam: Normal Bowel Sounds, Soft, Non-Tender, No Organomegaly, No Distention, No Abnormal Bruit, No Mass, Pelvis Stable (Male) Exam: Deferred Back Exam: No: CVA Tenderness (L), CVA Tenderness (R) Extremities: No Pedal Edema Wound/Incisions: Healing Well, No Drainage, Other (Wound assessment left foot, no dehiscent, sutures intact, no pain, no signs of infection) Neurological: Other (Decrease sensation bilateral lower extremities present on admission diabetic neuropathy) Psy/Mental Status: Alert, Normal Affect, Normal Mood - Problem List Review Problem List Initiated/Reviewed/Updated: Yes - My Orders Last 24 Hours: My Active Orders 09/12/17 12:00 Insulin Aspart [NovoLOG] 5 unit SUBCUT 1200 09/12/17 18:00 Insulin Aspart [NovoLOG] 8 unit SUBCUT 0800,1800 - Plan Plan:: HISTORY OF PRESENT ILLNESS 56-year-old T2 DM patient was transferred up here from [facility] after undergoing amputation left great toe due to chronic osteomyelitis with draining sinuses. Patient was admitted here at [facility] acutely for cellulitis and concern for osteomyelitis although initial x-rays were negative for also myelitis. MRI was scheduled however MRI truck broke down so patient was eventually discharged to follow-up with podiatry [facility] where he was exquisitely underwent first ray amputation of his left great toe. He was placed in swing bed with IV antibiotics vancomycin via PICC line long with rehabilitation and physical therapy for at least 1 week. Hospital course [facility] Patient was taken to OR on HD#2 and underwent 1st ray amputation with removal of all nonviable tissue. Patient was returned to floor for continued IV antibiotics and dressing changes. Patient was seen by HSB throughout and had no events. Patient was seen by ID via [facility] and discharge to [facility] for physical therapy and rehabilitation and dressing change and IV antibiotics. Update today, continues to require exogenous insulin reduction due to hypoglycemia. This was also the case while admitted to [facility]. Likely different glycemic index foods and patient noncompliance with diet at home. Principal Problem: Status post 1st ray amputation left great toe, vancomycin PICC line, pharmacy trough, suture removal proximally 18 September Wound care, Continue daily by nursing staff q24 hours. Betadine soaked gauze, kerlix, coban dressing, strict NWB left LE. Use a wheelchair for exercise Active Problems: Esophageal reflux Diabetic polyneuropathy associated with diabetes mellitus due to underlying condition HLD; Crestor HTN; ARB, creatinine normal T2DM, previously reduced Lantus/mealtime insulin coverage. Further reduction mealtime insulin at noon. Continue with GPL1 and metformin. Obesity with body mass index of 30.0-39.9. 1800 ADA calorie reduction MRSA (methicillin resistant Staphylococcus aureus) infection--definitive therapy with sensitive vancomycin Activity Strict NWB left LE. Use a wheelchair for exercise--its was stressed to him again today. Full CODE STATUS Future appointments/Consultations Scheduled for Telemedicine at [facility] on SundaySeptember 26 at 1145am.
[2017-09-13] MEDS ORDERED: Insulin Aspart 100 Units/ML 3 ML Pen SUBCUT SCH (12:00)
[2017-09-13] MEDS: diphenhydrAMINE 25 MG Cap PO SCH (13:05)
[2017-09-13] MEDS: Sodium Chloride 0.9% 10 ML Syringe FLUSH PRN ×2 (13:39→16:44)
[2017-09-13] MEDS: Enoxaparin 40 MG/0.4 ML Syringe SUBCUT SCH (20:26)
[2017-09-13] MEDS: Rosuvastatin 10 MG Tab PO SCH (20:26)
[2017-09-14] MEDS: diphenhydrAMINE 25 MG Cap PO SCH (06:48)
[2017-09-14] MEDS: Omeprazole 20 MG Cap.CR PO SCH (07:40)
[2017-09-14] MEDS: Liraglutide (rDNA Origin) 0.6 MG/0.1 ML 3 ML Pen SUBCUT SCH (08:05)
[2017-09-14] MEDS: Acetaminophen 325 MG Tab PO SCH ×3 (08:06→21:09)
[2017-09-14] MEDS: Bacitracin/Neomycin/Polymyxin B Oint 28.4 GM Tube TOP SCH (08:07)
[2017-09-14] MEDS: Escitalopram 10 MG Tab PO SCH (08:08)
[2017-09-14] MEDS: Insulin Detemir 100 Units/ML 3 ML Pen SUBCUT SCH (08:09)
[2017-09-14] MEDS: Potassium Chloride 10 MEQ Tab.ER PO SCH ×2 (08:11→21:10)
[2017-09-14] MEDS: Aspirin 325 MG Tab.EC PO SCH (08:12)
[2017-09-14] MEDS: Losartan 25 MG Tab PO SCH (08:14)
[2017-09-14] MEDS: Insulin Aspart 100 Units/ML 3 ML Pen SUBCUT SCH ×7 (08:15→21:11)
[2017-09-14] MEDS: metFORMIN 500 MG Tab PO SCH ×2 (08:17→18:03)
[2017-09-14] MEDS: Calcium Citrate/Vitamin D3 315 MG-250 Unit Tab PO SCH ×2 (08:18→18:03)
[2017-09-14] MEDS: Rosuvastatin 10 MG Tab PO SCH (21:10)
[2017-09-14] MEDS: Enoxaparin 40 MG/0.4 ML Syringe SUBCUT SCH (21:11)
[2017-09-15] MEDS: diphenhydrAMINE 25 MG Cap PO SCH ×2 (01:06→19:06)
[2017-09-15] MEDS: Sodium Chloride 0.9% 100 ML IV SCH ×2 (01:32→19:55)
[2017-09-15] MEDS: Sodium Chloride 0.9% 10 ML Syringe FLUSH PRN ×4 (01:35→23:03)
[2017-09-15] MEDS: Acetaminophen 325 MG Tab PO PRN (01:41)
[2017-09-15] MEDS: Omeprazole 20 MG Cap.CR PO SCH (07:47)
[2017-09-15] MEDS: Acetaminophen 325 MG Tab PO SCH ×3 (08:12→21:15)
[2017-09-15] MEDS: Insulin Detemir 100 Units/ML 3 ML Pen SUBCUT SCH (08:14)
[2017-09-15] MEDS: Escitalopram 10 MG Tab PO SCH (08:14)
[2017-09-15] MEDS: Liraglutide (rDNA Origin) 0.6 MG/0.1 ML 3 ML Pen SUBCUT SCH (08:16)
[2017-09-15] MEDS: Potassium Chloride 10 MEQ Tab.ER PO SCH ×2 (08:17→21:15)
[2017-09-15] MEDS: Bacitracin/Neomycin/Polymyxin B Oint 28.4 GM Tube TOP SCH (08:17)
[2017-09-15] MEDS: Aspirin 325 MG Tab.EC PO SCH (08:17)
[2017-09-15] MEDS: Losartan 25 MG Tab PO SCH (08:18)
[2017-09-15] MEDS: Insulin Aspart 100 Units/ML 3 ML Pen SUBCUT SCH ×7 (08:18→21:17)
[2017-09-15] MEDS: Calcium Citrate/Vitamin D3 315 MG-250 Unit Tab PO SCH ×2 (08:20→18:20)
[2017-09-15] MEDS: metFORMIN 500 MG Tab PO SCH ×2 (08:20→18:20)
[2017-09-15] MEDS: Rosuvastatin 10 MG Tab PO SCH (21:14)
[2017-09-15] MEDS: Enoxaparin 40 MG/0.4 ML Syringe SUBCUT SCH (21:16)
[2017-09-16] MEDS: Omeprazole 20 MG Cap.CR PO SCH (07:45)
[2017-09-16] MEDS: Insulin Aspart 100 Units/ML 3 ML Pen SUBCUT SCH ×7 (07:46→21:57)
[2017-09-16] MEDS: Escitalopram 10 MG Tab PO SCH (08:22)
[2017-09-16] MEDS: metFORMIN 500 MG Tab PO SCH ×2 (08:22→17:58)
[2017-09-16] MEDS: Potassium Chloride 10 MEQ Tab.ER PO SCH ×2 (08:22→21:54)
[2017-09-16] MEDS: Aspirin 325 MG Tab.EC PO SCH (08:23)
[2017-09-16] MEDS: Losartan 25 MG Tab PO SCH (08:23)
[2017-09-16] MEDS: Acetaminophen 325 MG Tab PO SCH ×3 (08:23→21:55)
[2017-09-16] MEDS: Calcium Citrate/Vitamin D3 315 MG-250 Unit Tab PO SCH ×2 (08:23→17:59)
[2017-09-16] MEDS: Insulin Detemir 100 Units/ML 3 ML Pen SUBCUT SCH (08:25)
[2017-09-16] MEDS: Liraglutide (rDNA Origin) 0.6 MG/0.1 ML 3 ML Pen SUBCUT SCH (08:26)
[2017-09-16] MEDS: Bacitracin/Neomycin/Polymyxin B Oint 28.4 GM Tube TOP SCH (10:00)
[2017-09-16] MEDS: diphenhydrAMINE 25 MG Cap PO SCH (13:40)
[2017-09-16] MEDS: Sodium Chloride 0.9% 100 ML IV SCH (13:40)
[2017-09-16] MEDS: Rosuvastatin 10 MG Tab PO SCH (21:54)
[2017-09-16] MEDS: Enoxaparin 40 MG/0.4 ML Syringe SUBCUT SCH (21:55)
[2017-09-17] MEDS: Acetaminophen 325 MG Tab PO PRN (02:25)
[2017-09-17] MEDS: diphenhydrAMINE 25 MG Cap PO SCH (06:54)
[2017-09-17] MEDS: Sodium Chloride 0.9% 100 ML IV SCH (07:35)
[2017-09-17] MEDS: Sodium Chloride 0.9% 10 ML Syringe FLUSH PRN (07:37)
[2017-09-17] MEDS: metFORMIN 500 MG Tab PO SCH ×2 (07:41→18:24)
[2017-09-17] MEDS: Omeprazole 20 MG Cap.CR PO SCH (07:41)
[2017-09-17] MEDS: Calcium Citrate/Vitamin D3 315 MG-250 Unit Tab PO SCH ×2 (07:41→18:24)
[2017-09-17] MEDS: Insulin Aspart 100 Units/ML 3 ML Pen SUBCUT SCH ×7 (07:46→21:29)
[2017-09-17] MEDS: Losartan 25 MG Tab PO SCH (08:41)
[2017-09-17] MEDS: Aspirin 325 MG Tab.EC PO SCH (08:41)
[2017-09-17] MEDS: Potassium Chloride 10 MEQ Tab.ER PO SCH ×2 (08:41→20:37)
[2017-09-17] MEDS: Escitalopram 10 MG Tab PO SCH (08:42)
[2017-09-17] MEDS: Bacitracin/Neomycin/Polymyxin B Oint 28.4 GM Tube TOP SCH (08:42)
[2017-09-17] MEDS: Acetaminophen 325 MG Tab PO SCH ×3 (08:42→20:37)
[2017-09-17] MEDS: Liraglutide (rDNA Origin) 0.6 MG/0.1 ML 3 ML Pen SUBCUT SCH (08:42)
[2017-09-17] MEDS: Insulin Detemir 100 Units/ML 3 ML Pen SUBCUT SCH (08:45)
[2017-09-17] MEDS: Rosuvastatin 10 MG Tab PO SCH (20:37)
[2017-09-17] MEDS: Enoxaparin 40 MG/0.4 ML Syringe SUBCUT SCH (20:37)
[2017-09-18] MEDS: diphenhydrAMINE 25 MG Cap PO SCH ×2 (01:02→19:36)
[2017-09-18] MEDS: Sodium Chloride 0.9% 100 ML IV SCH ×2 (01:05→19:53)
[2017-09-18] MEDS: Calcium Citrate/Vitamin D3 315 MG-250 Unit Tab PO SCH ×2 (08:20→17:57)
[2017-09-18] MEDS: Losartan 25 MG Tab PO SCH (08:20)
[2017-09-18] MEDS: metFORMIN 500 MG Tab PO SCH ×2 (08:20→17:57)
[2017-09-18] MEDS: Omeprazole 20 MG Cap.CR PO SCH (08:20)
[2017-09-18] MEDS: Aspirin 325 MG Tab.EC PO SCH (08:20)
[2017-09-18] MEDS: Potassium Chloride 10 MEQ Tab.ER PO SCH ×2 (08:21→20:00)
[2017-09-18] MEDS: Acetaminophen 325 MG Tab PO SCH ×3 (08:21→20:00)
[2017-09-18] MEDS: Bacitracin/Neomycin/Polymyxin B Oint 28.4 GM Tube TOP SCH (08:21)
[2017-09-18] MEDS: Escitalopram 10 MG Tab PO SCH (08:21)
[2017-09-18] MEDS: Insulin Aspart 100 Units/ML 3 ML Pen SUBCUT SCH ×7 (08:22→21:12)
[2017-09-18] MEDS: Insulin Detemir 100 Units/ML 3 ML Pen SUBCUT SCH (08:22)
[2017-09-18] MEDS: Liraglutide (rDNA Origin) 0.6 MG/0.1 ML 3 ML Pen SUBCUT SCH (08:23)
[2017-09-18] MEDS: Rosuvastatin 10 MG Tab PO SCH (20:00)
[2017-09-18] MEDS: Enoxaparin 40 MG/0.4 ML Syringe SUBCUT SCH (20:00)
[2017-09-19] MEDS: Omeprazole 20 MG Cap.CR PO SCH (08:21)
[2017-09-19] MEDS: Potassium Chloride 10 MEQ Tab.ER PO SCH ×2 (08:22→21:01)
[2017-09-19] MEDS: metFORMIN 500 MG Tab PO SCH ×2 (08:22→17:53)
[2017-09-19] MEDS: Calcium Citrate/Vitamin D3 315 MG-250 Unit Tab PO SCH ×2 (08:22→17:54)
[2017-09-19] MEDS: Losartan 25 MG Tab PO SCH (08:23)
[2017-09-19] MEDS: Insulin Aspart 100 Units/ML 3 ML Pen SUBCUT SCH ×7 (08:23→21:11)
[2017-09-19] MEDS: Aspirin 325 MG Tab.EC PO SCH (08:24)
[2017-09-19] MEDS: Escitalopram 10 MG Tab PO SCH (08:24)
[2017-09-19] MEDS: Bacitracin/Neomycin/Polymyxin B Oint 28.4 GM Tube TOP SCH (08:24)
[2017-09-19] MEDS: Insulin Detemir 100 Units/ML 3 ML Pen SUBCUT SCH (08:26)
[2017-09-19] MEDS: Liraglutide (rDNA Origin) 0.6 MG/0.1 ML 3 ML Pen SUBCUT SCH (08:29)
[2017-09-19] MEDS: Acetaminophen 325 MG Tab PO SCH ×3 (08:32→21:00)
--- NOTE | 2017-09-19 09:52 | PCM.PN ---
- General Info Date of Service: 09/19/17 Functional Status: Reports: Pain Controlled, Tolerating Diet. Denies: Ambulating (Continues with nonweightbearing left foot) - Review of Systems General: Denies: Fever, Weakness, Fatigue, Malaise, Chills HEENT: Reports: No Symptoms Pulmonary: Reports: No Symptoms Cardiovascular: Reports: No Symptoms Gastrointestinal: Reports: No Symptoms Genitourinary: Reports: No Symptoms Musculoskeletal: Reports: No Symptoms Skin: Reports: Bruising, Other (Present on admission right great toe trauma skin erosion after he stubbed it) Neurological: Reports: Pre-Existing Deficit, Difficulty Walking. Denies: Numbness, Syncope, Tingling Psychiatric: Reports: No Symptoms - Patient Data Vitals - Most Recent: Last Vital Signs Temp 99.9 F 09/19/17 06:26 Pulse 72 09/19/17 09:06 Resp 20 09/19/17 06:26 BP 110/50 L 09/19/17 08:23 Pulse Ox 96 09/19/17 06:26 Weight - Most Recent: 258 lb I&O - Last 24 Hours: Intake & Output 09/18/17 09/19/17 09/19/17 22:59 06:59 14:59 Intake Total 855 50 Output Total 400 1000 Balance 455 -950 Lab Results Last 24 Hours: Laboratory Results - last 24 hr 09/18/17 09/18/17 09/18/17 Range/Units 11:24 17:51 19:00 WBC (5.0-10.0) 10^3/uL RBC (4.50-6.00) 10^6/uL Hgb (13.0-17.0) g/dL Hct (40.0-52.0) % MCV (82.0-92.0) fL MCH (27.0-31.0) pg MCHC (32.0-36.0) g/dL RDW (11.5-14.5) % Plt Count (150-300) 10^3/uL MPV (7.4-10.4) fL Neut % (Auto) (50.0-70.0) % Lymph % (Auto) (20.0-40.0) % [place] % (Auto) (2.0-8.0) % Eos % (Auto) (1.0-3.0) % Baso % (Auto) (0.0-1.0) % Neut # (Auto) (2.5-7.0) 10^3/uL Lymph # (Auto) (1.0-4.0) 10^3/uL [place] # (Auto) (0.1-0.8) 10^3/uL Eos # (Auto) (0.1-0.3) 10^3/uL Baso # (Auto) (0.0-0.1) 10^3/uL ESR (0-15) mm/hr BUN (6-25) mg/dL Creatinine (0.51-1.17) mg/dL Est Cr Clr Drug Dosing mL/min Estimated GFR (MDRD) mL/min POC Glucose 135 H 98 (74-106) mg/dl C-Reactive Protein (0.0-0.9) mg/dL Vancomycin Trough 16.0 (10-20) ug/mL 09/18/17 09/19/17 09/19/17 Range/Units 21:09 06:39 07:15 WBC (5.0-10.0) 10^3/uL RBC (4.50-6.00) 10^6/uL Hgb (13.0-17.0) g/dL Hct (40.0-52.0) % MCV (82.0-92.0) fL MCH (27.0-31.0) pg MCHC (32.0-36.0) g/dL RDW (11.5-14.5) % Plt Count (150-300) 10^3/uL MPV (7.4-10.4) fL Neut % (Auto) (50.0-70.0) % Lymph % (Auto) (20.0-40.0) % [place] % (Auto) (2.0-8.0) % Eos % (Auto) (1.0-3.0) % Baso % (Auto) (0.0-1.0) % Neut # (Auto) (2.5-7.0) 10^3/uL Lymph # (Auto) (1.0-4.0) 10^3/uL [place] # (Auto) (0.1-0.8) 10^3/uL Eos # (Auto) (0.1-0.3) 10^3/uL Baso # (Auto) (0.0-0.1) 10^3/uL ESR (0-15) mm/hr BUN (6-25) mg/dL Creatinine 0.93 (0.51-1.17) mg/dL Est Cr Clr Drug Dosing 100.23 mL/min Estimated GFR (MDRD) > 60 mL/min POC Glucose 157 H 113 H (74-106) mg/dl C-Reactive Protein 0.9 (0.0-0.9) mg/dL Vancomycin Trough (10-20) ug/mL 09/19/17 09/19/17 09/19/17 Range/Units 07:15 07:15 07:15 WBC 8.6 (5.0-10.0) 10^3/uL RBC 3.55 L (4.50-6.00) 10^6/uL Hgb 10.6 L (13.0-17.0) g/dL Hct 33.4 L (40.0-52.0) % MCV 94.2 H (82.0-92.0) fL MCH 29.9 (27.0-31.0) pg MCHC 31.7 L (32.0-36.0) g/dL RDW 12.8 (11.5-14.5) % Plt Count 436 H (150-300) 10^3/uL MPV 7.8 (7.4-10.4) fL Neut % (Auto) 64.9 (50.0-70.0) % Lymph % (Auto) 23.0 (20.0-40.0) % [place] % (Auto) 6.6 (2.0-8.0) % Eos % (Auto) 4.2 H (1.0-3.0) % Baso % (Auto) 1.3 H (0.0-1.0) % Neut # (Auto) 5.5 (2.5-7.0) 10^3/uL Lymph # (Auto) 2.0 (1.0-4.0) 10^3/uL [place] # (Auto) 0.6 (0.1-0.8) 10^3/uL Eos # (Auto) 0.4 H (0.1-0.3) 10^3/uL Baso # (Auto) 0.1 (0.0-0.1) 10^3/uL ESR 91 H (0-15) mm/hr BUN 19 (6-25) mg/dL Creatinine (0.51-1.17) mg/dL Est Cr Clr Drug Dosing mL/min Estimated GFR (MDRD) mL/min POC Glucose (74-106) mg/dl C-Reactive Protein (0.0-0.9) mg/dL Vancomycin Trough (10-20) ug/mL Med Orders - Current: Current Medications Acetaminophen (Tylenol) 650 mg PO TID [facility] Last Admin: 09/19/17 08:32 Dose: 650 mg Acetaminophen (Tylenol) 650 mg PO Q4H PRN PRN Reason: Pain Last Admin: 09/17/17 02:25 Dose: 650 mg Aspirin (Ecotrin) 325 mg PO DAILY [facility] Last Admin: 09/19/17 08:24 Dose: 325 mg Calcium Citrate (Calcium Citrate + D) 2 tab PO BIDMEALS [facility] Last Admin: 09/19/17 08:22 Dose: 2 tab Diphenhydramine HCl (Benadryl) 25 mg PO Q18H [facility] Last Admin: 09/18/17 19:36 Dose: 25 mg Enoxaparin Sodium (Lovenox) 40 mg SUBCUT BEDTIME [facility] Last Admin: 09/18/17 20:00 Dose: 40 mg Escitalopram Oxalate (Lexapro) 10 mg PO DAILY [facility] Last Admin: 09/19/17 08:24 Dose: 10 mg Vancomycin HCl 1.5 gm/ Sodium (Chloride) 280 mls @ 112 mls/hr IV Q18H [facility] Last Admin: 09/18/17 19:53 Dose: 112 mls/hr Sodium Chloride (Normal Saline) 100 mls @ 20 mls/hr IV Q18H [facility] Last Admin: 09/18/17 19:53 Dose: 20 mls/hr Insulin Aspart (Novolog) 0 unit SUBCUT WITHMEALSANDBED [facility] PRN Reason: Protocol Last Admin: 09/19/17 08:23 Dose: Not Given Insulin Aspart (Novolog) 8 unit SUBCUT 0800,1800 [facility] Last Admin: 09/19/17 08:27 Dose: 8 units Insulin Aspart (Novolog) 5 unit SUBCUT 1200 [facility] Last Admin: 09/18/17 11:58 Dose: 5 units Insulin Detemir (Levemir) 30 unit SUBCUT DAILY [facility] Last Admin: 09/19/17 08:26 Dose: 30 units Liraglutide (Victoza) 1.8 mg SUBCUT DAILY [facility] Last Admin: 09/19/17 08:29 Dose: 1.8 mg Losartan Potassium (Cozaar) 25 mg PO DAILY [facility] Last Admin: 09/19/17 08:23 Dose: 25 mg Metformin HCl (Glucophage) 1,000 mg PO BIDMEALS [facility] Last Admin: 09/19/17 08:22 Dose: 1,000 mg Neomycin/Polymyxin/Bacitracin (Triple Antibiotic Oint) 0 gm TOP DAILY [facility] Last Admin: 09/19/17 08:24 Dose: 1 applic Omeprazole (Omeprazole) 20 mg PO ACBREAKFAST [facility] Last Admin: 09/19/17 08:21 Dose: 20 mg Polyethylene Glycol (Miralax) 17 gm PO DAILY PRN PRN Reason: Constipation Potassium Chloride (Klor-Con 10) 10 meq PO BID [facility] Last Admin: 09/19/17 08:22 Dose: 10 meq Rosuvastatin Calcium (Crestor) 5 mg PO BEDTIME [facility] Last Admin: 09/18/17 20:00 Dose: 5 mg Sodium Chloride (Saline Flush) 10 ml FLUSH ASDIRECTED PRN PRN Reason: IV Use Last Admin: 09/17/17 07:37 Dose: 10 ml Vancomycin HCl (Pharmacy To Dose - Vancomycin) 0 dose .XX ASDIRECTED [facility] Discontinued Medications Calcium Citrate (Calcium Citrate + D) 1 tab PO BIDMEALS [facility] Last Admin: 09/11/17 08:00 Dose: 1 tab Vancomycin HCl 1.5 gm/ Sodium (Chloride) 250 mls @ 166.667 mls/hr IV Q18H [facility] Last Admin: 09/12/17 20:42 Dose: 166.667 mls/hr Insulin Aspart (Novolog) 15 unit SUBCUT TIDMEALS [facility] Last Admin: 09/11/17 12:01 Dose: 15 units Insulin Aspart (Novolog) 12 unit SUBCUT TIDMEALS [facility] Last Admin: 09/12/17 09:50 Dose: Not Given Insulin Aspart (Novolog) 8 unit SUBCUT BID [facility] Last Admin: 09/12/17 09:47 Dose: 8 units Insulin Aspart (Novolog) 5 unit SUBCUT DAILY [facility] Non-Formulary Medication (Vancomycin/0.9 % Sod Chloride [Vanco 1.5 Gm/250 Ml-0.9 % Nacl]) 1.5 gm IV Q18H [facility] Sodium Chloride (Saline Flush) 10 ml FLUSH Q8H PRN PRN Reason: IV Use - Exam Quality Assessment: No: Supplemental Oxygen General: Alert, Oriented Neck: Supple Lungs: Clear to Auscultation, Normal Respiratory Effort Cardiovascular: Regular Rate, Regular Rhythm GI/Abdominal Exam: No Distention (Male) Exam: No: Rash Extremities: No Pedal Edema. No: Leg Pain, Increased Warmth Skin: Other (Left foot, sutures intact, no dehiscent, no signs of infection, no drainage. Right great toe healing from previous stubbed prior to admission, no signs of infection, although cultures demonstrate MRSA, on vancomycin sensitivity) Neurological: No New Focal Deficit Psy/Mental Status: Alert, Normal Affect, Normal Mood - Problem List Review Problem List Initiated/Reviewed/Updated: Yes - Plan Plan:: HISTORY OF PRESENT ILLNESS 56-year-old T2 DM patient was transferred up here from [facility] after undergoing amputation left great toe due to chronic osteomyelitis with draining sinuses. Patient was admitted here at acutely for cellulitis and concern for osteomyelitis although initial x-rays were negative for also myelitis. MRI was scheduled however MRI truck broke down so patient was eventually discharged to follow-up with podiatry [facility] where he was exquisitely underwent first ray amputation of his left great toe. He was placed in swing bed with IV antibiotics vancomycin via PICC line long with rehabilitation and physical therapy for at least 1 week. Hospital course [facility] Patient was taken to OR on HD#2 and underwent 1st ray amputation with removal of all nonviable tissue. Patient was returned to floor for continued IV antibiotics and dressing changes. Patient was seen by HSB throughout and had no events. Patient was seen by ID via [facility] and discharge to for physical therapy and rehabilitation and dressing change and IV antibiotics. Update today, blood sugars much more improved, continues nonweightbearing left leg, MRSA demonstrated on both right great toe and drainage from left foot from last week, on definitive therapy vancomycin. No wound dehiscent. Principal Problem: Status post 1st ray amputation left great toe, vancomycin PICC line, pharmacy trough, suture removal by Dr. Barrow tomorrow Wound care, Continue daily by nursing staff q24 hours. Betadine soaked gauze, kerlix, coban dressing, strict NWB left LE. Use a wheelchair for exercise Reactive thrombocytosis Active Problems: Esophageal reflux Diabetic polyneuropathy associated with diabetes mellitus due to underlying condition HLD; Crestor HTN; ARB, creatinine normal T2DM, previously reduced Lantus/mealtime insulin coverage. Last week I Further reduction mealtime insulin at noon. Reduce long-acting insulin by 2 units--consider switching to Tresiba. Continue with GPL1 and metformin. Obesity with body mass index of 30.0-39.9. 1800 ADA calorie reduction MRSA (methicillin resistant Staphylococcus aureus) infection--definitive therapy with sensitive vancomycin Activity Strict NWB left LE. Use a wheelchair for exercise--its was stressed to him again today. Nonweightbearing with special walker Full CODE STATUS Future appointments/Consultations Likely will continue vancomycin, via PICC. He will be sent for follow-[facility] appointment [facility] Scheduled for Tele[facility]icine at [facility] on SundaySeptember 26 at 1145am.
[2017-09-19] MEDS: diphenhydrAMINE 25 MG Cap PO SCH (13:01)
[2017-09-19] MEDS: Sodium Chloride 0.9% 100 ML IV SCH (13:53)
[2017-09-19] MEDS: Sodium Chloride 0.9% 10 ML Syringe FLUSH PRN ×2 (13:55→16:38)
[2017-09-19] MEDS: Enoxaparin 40 MG/0.4 ML Syringe SUBCUT SCH (21:00)
[2017-09-19] MEDS: Rosuvastatin 10 MG Tab PO SCH (21:01)
[2017-09-20] MEDS: diphenhydrAMINE 25 MG Cap PO SCH ×2 (05:06→06:14)
[2017-09-20] MEDS: Sodium Chloride 0.9% 100 ML IV SCH ×2 (05:38→06:31)
[2017-09-20] MEDS: Omeprazole 20 MG Cap.CR PO SCH (07:55)
[2017-09-20] MEDS: metFORMIN 500 MG Tab PO SCH ×2 (07:55→17:54)
[2017-09-20] MEDS: Calcium Citrate/Vitamin D3 315 MG-250 Unit Tab PO SCH ×2 (07:55→17:53)
[2017-09-20] MEDS: Insulin Aspart 100 Units/ML 3 ML Pen SUBCUT SCH ×7 (07:56→21:42)
[2017-09-20] MEDS: Aspirin 325 MG Tab.EC PO SCH (08:00)
[2017-09-20] MEDS: Potassium Chloride 10 MEQ Tab.ER PO SCH ×2 (08:00→21:42)
[2017-09-20] MEDS: Losartan 25 MG Tab PO SCH (08:00)
[2017-09-20] MEDS: Insulin Detemir 100 Units/ML 3 ML Pen SUBCUT SCH (08:01)
[2017-09-20] MEDS: Escitalopram 10 MG Tab PO SCH (08:01)
[2017-09-20] MEDS: Bacitracin/Neomycin/Polymyxin B Oint 28.4 GM Tube TOP SCH (08:01)
[2017-09-20] MEDS: Acetaminophen 325 MG Tab PO SCH ×3 (08:01→21:42)
[2017-09-20] MEDS: Liraglutide (rDNA Origin) 0.6 MG/0.1 ML 3 ML Pen SUBCUT SCH (08:02)
[2017-09-20] MEDS: Rosuvastatin 10 MG Tab PO SCH (21:41)
[2017-09-20] MEDS: Enoxaparin 40 MG/0.4 ML Syringe SUBCUT SCH (21:42)
[2017-09-21] MEDS: diphenhydrAMINE 25 MG Cap PO SCH ×2 (01:05→19:34)
[2017-09-21] MEDS: Sodium Chloride 0.9% 10 ML Syringe FLUSH PRN ×2 (01:32→04:34)
[2017-09-21] MEDS: Sodium Chloride 0.9% 100 ML IV SCH ×2 (01:34→20:16)
[2017-09-21] MEDS: Omeprazole 20 MG Cap.CR PO SCH (07:30)
[2017-09-21] MEDS: Calcium Citrate/Vitamin D3 315 MG-250 Unit Tab PO SCH ×2 (08:11→17:32)
[2017-09-21] MEDS: metFORMIN 500 MG Tab PO SCH ×2 (08:12→17:32)
[2017-09-21] MEDS: Insulin Aspart 100 Units/ML 3 ML Pen SUBCUT SCH ×7 (08:13→21:35)
[2017-09-21] MEDS: Losartan 25 MG Tab PO SCH (08:17)
[2017-09-21] MEDS: Aspirin 325 MG Tab.EC PO SCH (08:17)
[2017-09-21] MEDS: Potassium Chloride 10 MEQ Tab.ER PO SCH ×2 (08:17→20:26)
[2017-09-21] MEDS: Escitalopram 10 MG Tab PO SCH (08:18)
[2017-09-21] MEDS: Acetaminophen 325 MG Tab PO SCH ×3 (08:19→20:27)
[2017-09-21] MEDS: Liraglutide (rDNA Origin) 0.6 MG/0.1 ML 3 ML Pen SUBCUT SCH (08:35)
[2017-09-21] MEDS: Bacitracin/Neomycin/Polymyxin B Oint 28.4 GM Tube TOP SCH (09:10)
--- NOTE | 2017-09-21 10:26 | PCM.PN ---
- General Info Date of Service: 09/21/17 Functional Status: Reports: Pain Controlled, Ambulating (ambulating with special walker, adhering to strict nonweightbearing left lower extremity/foot). Denies: New Symptoms - Review of Systems General: Denies: Fever, Weakness, Fatigue, Malaise, Chills HEENT: Reports: No Symptoms Pulmonary: Reports: No Symptoms Cardiovascular: Reports: No Symptoms Gastrointestinal: Reports: No Symptoms Genitourinary: Reports: No Symptoms Musculoskeletal: Reports: No Symptoms Skin: Denies: Rash Neurological: Reports: No Symptoms, Gait Disturbance Psychiatric: Reports: No Symptoms - Patient Data Vitals - Most Recent: Last Vital Signs Temp 98.1 F 09/21/17 07:00 Pulse 76 09/21/17 07:45 Resp 16 09/21/17 07:00 BP 110/73 09/21/17 07:00 Pulse Ox 100 09/21/17 07:45 Weight - Most Recent: 258 lb I&O - Last 24 Hours: Intake & Output 09/20/17 09/21/17 09/21/17 22:59 06:59 14:59 Intake Total 1095 620 Output Total 425 Balance 1095 195 Lab Results Last 24 Hours: Laboratory Results - last 24 hr 09/20/17 09/20/17 09/21/17 Range/Units 17:30 21:40 06:52 POC Glucose 155 H 115 H 119 H (74-106) mg/dl Med Orders - Current: Current Medications Acetaminophen (Tylenol) 650 mg PO TID [facility] Last Admin: 09/21/17 08:19 Dose: 650 mg Acetaminophen (Tylenol) 650 mg PO Q4H PRN PRN Reason: Pain Last Admin: 09/17/17 02:25 Dose: 650 mg Aspirin (Ecotrin) 325 mg PO DAILY [facility] Last Admin: 09/21/17 08:17 Dose: 325 mg Calcium Citrate (Calcium Citrate + D) 2 tab PO BIDMEALS [facility] Last Admin: 09/21/17 08:11 Dose: 2 tab Diphenhydramine HCl (Benadryl) 25 mg PO Q18H [facility] Last Admin: 09/21/17 01:05 Dose: 25 mg Enoxaparin Sodium (Lovenox) 40 mg SUBCUT BEDTIME [facility] Last Admin: 09/20/17 21:42 Dose: 40 mg Escitalopram Oxalate (Lexapro) 10 mg PO DAILY [facility] Last Admin: 09/21/17 08:18 Dose: 10 mg Vancomycin HCl 1.5 gm/ Sodium (Chloride) 280 mls @ 112 mls/hr IV Q18H [facility] Last Admin: 09/21/17 01:32 Dose: 112 mls/hr Sodium Chloride (Normal Saline) 100 mls @ 20 mls/hr IV Q18H [facility] Last Admin: 09/21/17 01:34 Dose: 20 mls/hr Insulin Aspart (Novolog) 0 unit SUBCUT WITHMEALSANDBED [facility] PRN Reason: Protocol Last Admin: 09/20/17 21:42 Dose: Not Given Insulin Aspart (Novolog) 8 unit SUBCUT 0800,1800 [facility] Last Admin: 09/21/17 08:13 Dose: 8 units Insulin Aspart (Novolog) 5 unit SUBCUT 1200 [facility] Last Admin: 09/20/17 12:16 Dose: Not Given Insulin Detemir (Levemir) 28 unit SUBCUT DAILY [facility] Last Admin: 09/20/17 08:01 Dose: 28 unit Liraglutide (Victoza) 1.8 mg SUBCUT DAILY [facility] Last Admin: 09/21/17 08:35 Dose: 1.8 mg Losartan Potassium (Cozaar) 25 mg PO DAILY [facility] Last Admin: 09/21/17 08:17 Dose: 25 mg Metformin HCl (Glucophage) 1,000 mg PO BIDMEALS [facility] Last Admin: 09/21/17 08:12 Dose: 1,000 mg Neomycin/Polymyxin/Bacitracin (Triple Antibiotic Oint) 0 gm TOP DAILY [facility] Last Admin: 09/21/17 09:10 Dose: 1 applic Omeprazole (Omeprazole) 20 mg PO ACBREAKFAST [facility] Last Admin: 09/21/17 07:30 Dose: 20 mg Polyethylene Glycol (Miralax) 17 gm PO DAILY PRN PRN Reason: Constipation Potassium Chloride (Klor-Con 10) 10 meq PO BID [facility] Last Admin: 09/21/17 08:17 Dose: 10 meq Rosuvastatin Calcium (Crestor) 5 mg PO BEDTIME [facility] Last Admin: 09/20/17 21:41 Dose: 5 mg Sodium Chloride (Saline Flush) 10 ml FLUSH ASDIRECTED PRN PRN Reason: IV Use Last Admin: 09/21/17 04:34 Dose: 10 ml Vancomycin HCl (Pharmacy To Dose - Vancomycin) 0 dose .XX ASDIRECTED [facility] Discontinued Medications Calcium Citrate (Calcium Citrate + D) 1 tab PO BIDMEALS [facility] Last Admin: 09/11/17 08:00 Dose: 1 tab Vancomycin HCl 1.5 gm/ Sodium (Chloride) 250 mls @ 166.667 mls/hr IV Q18H [facility] Last Admin: 09/12/17 20:42 Dose: 166.667 mls/hr Insulin Aspart (Novolog) 15 unit SUBCUT TIDMEALS [facility] Last Admin: 09/11/17 12:01 Dose: 15 units Insulin Aspart (Novolog) 12 unit SUBCUT TIDMEALS [facility] Last Admin: 09/12/17 09:50 Dose: Not Given Insulin Aspart (Novolog) 8 unit SUBCUT BID [facility] Last Admin: 09/12/17 09:47 Dose: 8 units Insulin Aspart (Novolog) 5 unit SUBCUT DAILY [facility] Insulin Detemir (Levemir) 30 unit SUBCUT DAILY [facility] Last Admin: 09/19/17 08:26 Dose: 30 units Non-Formulary Medication (Vancomycin/0.9 % Sod Chloride [Vanco 1.5 Gm/250 Ml-0.9 % Nacl]) 1.5 gm IV Q18H [facility] Sodium Chloride (Saline Flush) 10 ml FLUSH Q8H PRN PRN Reason: IV Use - Exam Quality Assessment: No: Supplemental Oxygen, DVT Prophylaxis, Skin Breakdown Neck: Supple Lungs: Clear to Auscultation, Normal Respiratory Effort Cardiovascular: Regular Rate, Regular Rhythm GI/Abdominal Exam: Normal Bowel Sounds, Soft, No Distention Back Exam: No: CVA Tenderness (L), CVA Tenderness (R) Extremities: No: Amber's Sign, Leg Pain, Increased Warmth Peripheral Pulses: 1+: Dorsalis Pedis (L), Dorsalis Pedis (R) Skin: Warm, Dry, Intact, Other Wound/Incisions: Healing Well, No Drainage Psy/Mental Status: Alert, Normal Affect, Normal Mood - Problem List Review Problem List Initiated/Reviewed/Updated: Yes - Plan Plan:: HISTORY OF PRESENT ILLNESS 56-year-old T2 DM patient was transferred up here from [facility] after undergoing amputation left great toe due to chronic osteomyelitis with draining sinuses. Patient was admitted here at [facility] acutely for cellulitis and concern for osteomyelitis although initial x-rays were negative for also myelitis. MRI was scheduled however MRI truck broke down so patient was eventually discharged to follow-up with podiatry [facility] where he was exquisitely underwent first ray amputation of his left great toe. He was placed in swing bed with IV antibiotics vancomycin via PICC line long with rehabilitation and physical therapy for at least 1 week. Hospital course [facility] Patient was taken to OR on HD#2 and underwent 1st ray amputation with removal of all nonviable tissue. Patient was returned to floor for continued IV antibiotics and dressing changes. Patient was seen by HSB throughout and had no events. Patient was seen by ID via [facility] and discharge to [facility] for physical therapy and rehabilitation and dressing change and IV antibiotics. Update today, patient was evaluated with her diet is Dr. Barrow [facility] September 19. for surgical follow-up.currently 2/6 weeks of IV vancomycin per ID. Patient has been heel NWBAT in post operative dressing. Most sutures removed on September 19. every-other remain, steri-strips applied. Dressing applied. To be continued daily. Principal Problem: Status post Amputation great toe of left foot, vancomycin PICC line every 12 hours. pharmacy trough. Wound care, Continue daily by nursing staff q24 hours. Betadine soaked gauze, kerlix, coban dressing, strict NWB left LE. Use a wheelchair for exercise Reactive thrombocytosis Active Problems: Esophageal reflux Diabetic polyneuropathy associated with diabetes mellitus due to underlying condition HLD; Crestor HTN; ARB, creatinine normal T2DM, previously reduced Lantus/mealtime insulin coverage. must prevent hypoglycemia, slightly reduction in prandial to 6 units breakfast/supper. Considering changing to Tresiba. Continue with GPL1-a and metformin. Obesity with body mass index of 30.0-39.9. 1800 ADA calorie reduction, continues to lose modest weight MRSA (methicillin resistant Staphylococcus aureus) infection--definitive therapy with sensitive vancomycin Activity was advanced to heel WBAT LE, in accommodative shoe gear. Full CODE STATUS Overall plan advanced toheel WBAT in accommodative shoe gear. Continue IV antibiotics Vancomycin q 12 hours for 6 weeks per ID. Follow up with Dr. Danial Alegria next week (will TeleMed ID at that time Discharge planning in my opinion patient would greatly benefit from ongoing swing bed therapy due to patient high risk for re-hospitalization related to history of poor self- management at home, ongoing dressing changes and wound assessment, reduce cognitive ability to manage/assess ongoing wound care and assessment, and PICC line management. Patient continual needing of close monitoring with ongoing insulin adjustments.
[2017-09-21] MEDS: Insulin Detemir 100 Units/ML 3 ML Pen SUBCUT SCH (12:03)
[2017-09-21] MEDS: Rosuvastatin 10 MG Tab PO SCH (20:26)
[2017-09-21] MEDS: Enoxaparin 40 MG/0.4 ML Syringe SUBCUT SCH (20:28)
[2017-09-22] MEDS: Insulin Aspart 100 Units/ML 3 ML Pen SUBCUT SCH ×7 (07:52→21:08)
[2017-09-22] MEDS: metFORMIN 500 MG Tab PO SCH ×2 (07:55→18:32)
[2017-09-22] MEDS: Calcium Citrate/Vitamin D3 315 MG-250 Unit Tab PO SCH ×2 (07:55→18:32)
[2017-09-22] MEDS: Omeprazole 20 MG Cap.CR PO SCH (07:55)
[2017-09-22] MEDS: Aspirin 325 MG Tab.EC PO SCH (08:07)
[2017-09-22] MEDS: Potassium Chloride 10 MEQ Tab.ER PO SCH ×2 (08:07→21:04)
[2017-09-22] MEDS: Escitalopram 10 MG Tab PO SCH (08:08)
[2017-09-22] MEDS: Insulin Detemir 100 Units/ML 3 ML Pen SUBCUT SCH (08:09)
[2017-09-22] MEDS: Acetaminophen 325 MG Tab PO SCH ×3 (08:09→21:04)
[2017-09-22] MEDS: Liraglutide (rDNA Origin) 0.6 MG/0.1 ML 3 ML Pen SUBCUT SCH (08:11)
[2017-09-22] MEDS: Bacitracin/Neomycin/Polymyxin B Oint 28.4 GM Tube TOP SCH (09:18)
[2017-09-22] MEDS: Losartan 25 MG Tab PO SCH (09:27)
[2017-09-22] MEDS: diphenhydrAMINE 25 MG Cap PO SCH (14:07)
[2017-09-22] MEDS: Sodium Chloride 0.9% 100 ML IV SCH (14:34)
[2017-09-22] MEDS: Rosuvastatin 10 MG Tab PO SCH (21:05)
[2017-09-22] MEDS: Enoxaparin 40 MG/0.4 ML Syringe SUBCUT SCH (21:06)
[2017-09-23] MEDS: diphenhydrAMINE 25 MG Cap PO SCH (06:54)
[2017-09-23] MEDS: Sodium Chloride 0.9% 100 ML IV SCH (07:43)
[2017-09-23] MEDS: Insulin Aspart 100 Units/ML 3 ML Pen SUBCUT SCH ×7 (07:58→22:12)
[2017-09-23] MEDS: Insulin Detemir 100 Units/ML 3 ML Pen SUBCUT SCH (07:59)
[2017-09-23] MEDS: Liraglutide (rDNA Origin) 0.6 MG/0.1 ML 3 ML Pen SUBCUT SCH (08:00)
[2017-09-23] MEDS: metFORMIN 500 MG Tab PO SCH ×2 (08:04→17:28)
[2017-09-23] MEDS: Acetaminophen 325 MG Tab PO SCH ×3 (08:04→20:05)
[2017-09-23] MEDS: Escitalopram 10 MG Tab PO SCH (08:05)
[2017-09-23] MEDS: Potassium Chloride 10 MEQ Tab.ER PO SCH ×2 (08:05→20:04)
[2017-09-23] MEDS: Calcium Citrate/Vitamin D3 315 MG-250 Unit Tab PO SCH ×2 (08:05→17:28)
[2017-09-23] MEDS: Losartan 25 MG Tab PO SCH (08:05)
[2017-09-23] MEDS: Omeprazole 20 MG Cap.CR PO SCH (08:05)
[2017-09-23] MEDS: Aspirin 325 MG Tab.EC PO SCH (08:05)
[2017-09-23] MEDS: Bacitracin/Neomycin/Polymyxin B Oint 28.4 GM Tube TOP SCH (09:23)
[2017-09-23] MEDS: Rosuvastatin 10 MG Tab PO SCH (20:04)
[2017-09-23] MEDS: Enoxaparin 40 MG/0.4 ML Syringe SUBCUT SCH (20:05)
[2017-09-24] MEDS: diphenhydrAMINE 25 MG Cap PO SCH ×2 (01:01→18:06)
[2017-09-24] MEDS: Sodium Chloride 0.9% 100 ML IV SCH ×2 (01:02→18:49)
[2017-09-24] MEDS: Calcium Citrate/Vitamin D3 315 MG-250 Unit Tab PO SCH ×2 (08:16→18:05)
[2017-09-24] MEDS: Omeprazole 20 MG Cap.CR PO SCH (08:16)
[2017-09-24] MEDS: metFORMIN 500 MG Tab PO SCH ×2 (08:17→18:05)
[2017-09-24] MEDS: Losartan 25 MG Tab PO SCH (08:18)
[2017-09-24] MEDS: Insulin Aspart 100 Units/ML 3 ML Pen SUBCUT SCH ×7 (08:18→21:21)
[2017-09-24] MEDS: Potassium Chloride 10 MEQ Tab.ER PO SCH ×2 (08:19→20:21)
[2017-09-24] MEDS: Aspirin 325 MG Tab.EC PO SCH (08:19)
[2017-09-24] MEDS: Escitalopram 10 MG Tab PO SCH (08:19)
[2017-09-24] MEDS: Insulin Detemir 100 Units/ML 3 ML Pen SUBCUT SCH (08:21)
[2017-09-24] MEDS: Liraglutide (rDNA Origin) 0.6 MG/0.1 ML 3 ML Pen SUBCUT SCH (08:22)
[2017-09-24] MEDS: Acetaminophen 325 MG Tab PO SCH ×3 (08:54→20:21)
[2017-09-24] MEDS: Bacitracin/Neomycin/Polymyxin B Oint 28.4 GM Tube TOP SCH (08:55)
[2017-09-24] MEDS: Nystatin Topical Powder 15 GM Bottle TOP PRN (13:40)
[2017-09-24] MEDS: Sodium Chloride 0.9% 10 ML Syringe FLUSH PRN (18:49)
[2017-09-24] MEDS: Rosuvastatin 10 MG Tab PO SCH (20:21)
[2017-09-24] MEDS: Enoxaparin 40 MG/0.4 ML Syringe SUBCUT SCH (20:22)
[2017-09-25] MEDS: Omeprazole 20 MG Cap.CR PO SCH (06:48)
[2017-09-25] MEDS: Insulin Aspart 100 Units/ML 3 ML Pen SUBCUT SCH ×7 (07:46→21:20)
[2017-09-25] MEDS: Calcium Citrate/Vitamin D3 315 MG-250 Unit Tab PO SCH ×2 (08:10→18:02)
[2017-09-25] MEDS: Escitalopram 10 MG Tab PO SCH (08:11)
[2017-09-25] MEDS: Potassium Chloride 10 MEQ Tab.ER PO SCH ×2 (08:11→20:20)
[2017-09-25] MEDS: Aspirin 325 MG Tab.EC PO SCH (08:11)
[2017-09-25] MEDS: metFORMIN 500 MG Tab PO SCH ×2 (08:11→18:03)
[2017-09-25] MEDS: Acetaminophen 325 MG Tab PO SCH ×3 (08:12→20:20)
[2017-09-25] MEDS: Losartan 25 MG Tab PO SCH (08:12)
[2017-09-25] MEDS: Insulin Detemir 100 Units/ML 3 ML Pen SUBCUT SCH (08:14)
[2017-09-25] MEDS: Liraglutide (rDNA Origin) 0.6 MG/0.1 ML 3 ML Pen SUBCUT SCH (08:16)
[2017-09-25] MEDS: Bacitracin/Neomycin/Polymyxin B Oint 28.4 GM Tube TOP SCH (08:17)
[2017-09-25] MEDS: diphenhydrAMINE 25 MG Cap PO SCH (13:50)
[2017-09-25] MEDS: Sodium Chloride 0.9% 10 ML Syringe FLUSH PRN ×2 (14:15→17:17)
[2017-09-25] MEDS: Sodium Chloride 0.9% 100 ML IV SCH (14:15)
[2017-09-25] MEDS: Enoxaparin 40 MG/0.4 ML Syringe SUBCUT SCH (20:20)
[2017-09-25] MEDS: Rosuvastatin 10 MG Tab PO SCH (20:20)
[2017-09-26] MEDS: Omeprazole 20 MG Cap.CR PO SCH (06:34)
[2017-09-26] MEDS: diphenhydrAMINE 25 MG Cap PO SCH (06:34)
[2017-09-26] MEDS: Sodium Chloride 0.9% 100 ML IV SCH (06:38)
[2017-09-26] MEDS: Insulin Detemir 100 Units/ML 3 ML Pen SUBCUT SCH (08:05)
[2017-09-26] MEDS: Liraglutide (rDNA Origin) 0.6 MG/0.1 ML 3 ML Pen SUBCUT SCH (08:06)
[2017-09-26] MEDS: Insulin Aspart 100 Units/ML 3 ML Pen SUBCUT SCH ×7 (08:07→21:00)
[2017-09-26] MEDS: Bacitracin/Neomycin/Polymyxin B Oint 28.4 GM Tube TOP SCH (08:10)
[2017-09-26] MEDS: Acetaminophen 325 MG Tab PO SCH ×3 (08:10→20:59)
[2017-09-26] MEDS: Calcium Citrate/Vitamin D3 315 MG-250 Unit Tab PO SCH ×2 (08:11→18:08)
[2017-09-26] MEDS: metFORMIN 500 MG Tab PO SCH ×2 (08:11→18:08)
[2017-09-26] MEDS: Escitalopram 10 MG Tab PO SCH (08:12)
[2017-09-26] MEDS: Aspirin 325 MG Tab.EC PO SCH (08:12)
[2017-09-26] MEDS: Potassium Chloride 10 MEQ Tab.ER PO SCH ×2 (08:12→20:59)
[2017-09-26] MEDS: Losartan 25 MG Tab PO SCH (08:13)
[2017-09-26] MEDS: Sodium Chloride 0.9% 10 ML Syringe FLUSH PRN (09:56)
[2017-09-26] MEDS: Nystatin Topical Powder 15 GM Bottle TOP PRN (10:59)
[2017-09-26] MEDS: Rosuvastatin 10 MG Tab PO SCH (20:58)
[2017-09-26] MEDS: Enoxaparin 40 MG/0.4 ML Syringe SUBCUT SCH (20:59)
[2017-09-27] MEDS: diphenhydrAMINE 25 MG Cap PO SCH ×2 (01:04→18:31)
[2017-09-27] MEDS: Sodium Chloride 0.9% 100 ML IV SCH ×2 (01:04→20:15)
[2017-09-27] MEDS: Omeprazole 20 MG Cap.CR PO SCH ×2 (05:44→06:44)
[2017-09-27] MEDS: metFORMIN 500 MG Tab PO SCH ×3 (06:06→18:00)
[2017-09-27] MEDS: Calcium Citrate/Vitamin D3 315 MG-250 Unit Tab PO SCH ×3 (06:06→18:00)
[2017-09-27] MEDS: Insulin Aspart 100 Units/ML 3 ML Pen SUBCUT SCH ×8 (06:07→21:05)
[2017-09-27] MEDS: Losartan 25 MG Tab PO SCH ×2 (06:08→08:06)
[2017-09-27] MEDS: Potassium Chloride 10 MEQ Tab.ER PO SCH ×3 (06:09→21:02)
[2017-09-27] MEDS: Aspirin 325 MG Tab.EC PO SCH ×2 (06:09→08:06)
[2017-09-27] MEDS: Insulin Detemir 100 Units/ML 3 ML Pen SUBCUT SCH ×2 (06:10→08:06)
[2017-09-27] MEDS: Escitalopram 10 MG Tab PO SCH ×2 (06:11→08:06)
[2017-09-27] MEDS: Acetaminophen 325 MG Tab PO SCH ×4 (06:12→21:02)
[2017-09-27] MEDS: Liraglutide (rDNA Origin) 0.6 MG/0.1 ML 3 ML Pen SUBCUT SCH ×2 (06:12→08:07)
[2017-09-27] MEDS: Bacitracin/Neomycin/Polymyxin B Oint 28.4 GM Tube TOP SCH (08:07)
[2017-09-27] MEDS: Rosuvastatin 10 MG Tab PO SCH (21:01)
[2017-09-27] MEDS: Enoxaparin 40 MG/0.4 ML Syringe SUBCUT SCH (21:02)
[2017-09-28] MEDS: metFORMIN 500 MG Tab PO SCH ×2 (08:16→17:52)
[2017-09-28] MEDS: Losartan 25 MG Tab PO SCH (08:16)
[2017-09-28] MEDS: Aspirin 325 MG Tab.EC PO SCH (08:16)
[2017-09-28] MEDS: Calcium Citrate/Vitamin D3 315 MG-250 Unit Tab PO SCH ×2 (08:16→17:51)
[2017-09-28] MEDS: Omeprazole 20 MG Cap.CR PO SCH (08:16)
[2017-09-28] MEDS: Potassium Chloride 10 MEQ Tab.ER PO SCH ×2 (08:16→21:35)
[2017-09-28] MEDS: Acetaminophen 325 MG Tab PO SCH ×3 (08:17→21:35)
[2017-09-28] MEDS: Escitalopram 10 MG Tab PO SCH (08:17)
[2017-09-28] MEDS: Liraglutide (rDNA Origin) 0.6 MG/0.1 ML 3 ML Pen SUBCUT SCH (08:18)
[2017-09-28] MEDS: Insulin Detemir 100 Units/ML 3 ML Pen SUBCUT SCH (08:19)
[2017-09-28] MEDS: Insulin Aspart 100 Units/ML 3 ML Pen SUBCUT SCH ×4 (08:19→17:52)
[2017-09-28] MEDS: Bacitracin/Neomycin/Polymyxin B Oint 28.4 GM Tube TOP SCH (09:12)
[2017-09-28] MEDS: Nystatin Topical Powder 15 GM Bottle TOP PRN (09:13)
--- NOTE | 2017-09-28 10:03 | PCM.PN ---
- General Info Date of Service: 09/28/17 Admission Dx/Problem (Free Text): Admission Diagnosis/Problem Admission Diagnosis/Problem Osteomyelitis of toe of left foot Subjective Update: Mr. Huertas reports feeling well this morning. Had appointments with podiatry and infectious disease yesterday in [place] in which the remaining sutures from his left foot were removed and he was placed in a walking boot and an ingrown toenail of the right foot was removed. He is planning to discharge home on 10/02 with subsequent daily outpatient antibiotics and outpatient physical therapy. He has no concerns this morning. Nursing reports no concerns. Functional Status: Reports: Pain Controlled, Tolerating Diet, Ambulating - Patient Data Vitals - Most Recent: Last Vital Signs Temp 35.9 C 09/28/17 06:09 Pulse 83 09/28/17 06:09 Resp 18 09/28/17 06:09 BP 100/66 09/28/17 08:16 Pulse Ox 96 09/28/17 06:09 Weight - Most Recent: 115.212 kg I&O - Last 24 Hours: Intake & Output 09/27/17 09/28/17 09/28/17 22:59 06:59 14:59 Intake Total 1455 150 Output Total 650 950 Balance 805 -800 Lab Results Last 24 Hours: Laboratory Results - last 24 hr 09/27/17 09/27/17 09/28/17 Range/Units 17:47 20:59 05:58 POC Glucose 225 H 179 H 120 H (74-106) mg/dl Med Orders - Current: Current Medications Acetaminophen (Tylenol) 650 mg PO TID [facility] Last Admin: 09/28/17 08:17 Dose: 650 mg Acetaminophen (Tylenol) 650 mg PO Q4H PRN PRN Reason: Pain Last Admin: 09/17/17 02:25 Dose: 650 mg Aspirin (Ecotrin) 325 mg PO DAILY [facility] Last Admin: 09/28/17 08:16 Dose: 325 mg Calcium Citrate (Calcium Citrate + D) 2 tab PO BIDMEALS [facility] Last Admin: 09/28/17 08:16 Dose: 2 tab Diphenhydramine HCl (Benadryl) 25 mg PO Q18H [facility] Last Admin: 09/27/17 18:31 Dose: 25 mg Enoxaparin Sodium (Lovenox) 40 mg SUBCUT BEDTIME [facility] Last Admin: 09/27/17 21:02 Dose: 40 mg Escitalopram Oxalate (Lexapro) 10 mg PO DAILY [facility] Last Admin: 09/28/17 08:17 Dose: 10 mg Vancomycin HCl 1.5 gm/ Sodium (Chloride) 280 mls @ 112 mls/hr IV Q18H [facility] Last Admin: 09/27/17 20:15 Dose: 112 mls/hr Sodium Chloride (Normal Saline) 100 mls @ 20 mls/hr IV Q18H [facility] Last Admin: 09/27/17 20:15 Dose: 20 mls/hr Insulin Aspart (Novolog) 6 unit SUBCUT 0800,1800 [facility] Last Admin: 09/28/17 08:19 Dose: 6 units Insulin Aspart (Novolog) 6 unit SUBCUT 1200 [facility] Insulin Detemir (Levemir) 28 unit SUBCUT DAILY [facility] Last Admin: 09/28/17 08:19 Dose: 28 unit Liraglutide (Victoza) 1.8 mg SUBCUT DAILY [facility] Last Admin: 09/28/17 08:18 Dose: 1.8 mg Losartan Potassium (Cozaar) 25 mg PO DAILY [facility] Last Admin: 09/28/17 08:16 Dose: 25 mg Metformin HCl (Glucophage) 1,000 mg PO BIDMEALS [facility] Last Admin: 09/28/17 08:16 Dose: 1,000 mg Neomycin/Polymyxin/Bacitracin (Triple Antibiotic Oint) 0 gm TOP DAILY [facility] Last Admin: 09/28/17 09:12 Dose: 1 applic Nystatin (Nystop) 0 gm TOP QID PRN PRN Reason: Skin irritation Last Admin: 09/28/17 09:13 Dose: 1 applic Omeprazole (Omeprazole) 20 mg PO ACBREAKFAST [facility] Last Admin: 09/28/17 08:16 Dose: 20 mg Polyethylene Glycol (Miralax) 17 gm PO DAILY PRN PRN Reason: Constipation Potassium Chloride (Klor-Con 10) 10 meq PO BID [facility] Last Admin: 09/28/17 08:16 Dose: 10 meq Rosuvastatin Calcium (Crestor) 5 mg PO BEDTIME [facility] Last Admin: 09/27/17 21:01 Dose: 5 mg Sodium Chloride (Saline Flush) 10 ml FLUSH ASDIRECTED PRN PRN Reason: IV Use Last Admin: 09/26/17 09:56 Dose: 10 ml Vancomycin HCl (Pharmacy To Dose - Vancomycin) 0 dose .XX ASDIRECTED [facility] Discontinued Medications Calcium Citrate (Calcium Citrate + D) 1 tab PO BIDMEALS [facility] Last Admin: 09/11/17 08:00 Dose: 1 tab Vancomycin HCl 1.5 gm/ Sodium (Chloride) 250 mls @ 166.667 mls/hr IV Q18H [facility] Last Admin: 09/12/17 20:42 Dose: 166.667 mls/hr Insulin Aspart (Novolog) 15 unit SUBCUT TIDMEALS [facility] Last Admin: 09/11/17 12:01 Dose: 15 units Insulin Aspart (Novolog) 0 unit SUBCUT WITHMEALSANDBED [facility] PRN Reason: Protocol Last Admin: 09/28/17 08:20 Dose: Not Given Insulin Aspart (Novolog) 12 unit SUBCUT TIDMEALS [facility] Last Admin: 09/12/17 09:50 Dose: Not Given Insulin Aspart (Novolog) 8 unit SUBCUT BID [facility] Last Admin: 09/12/17 09:47 Dose: 8 units Insulin Aspart (Novolog) 5 unit SUBCUT DAILY [facility] Insulin Aspart (Novolog) 8 unit SUBCUT 0800,1800 [facility] Last Admin: 09/21/17 08:13 Dose: 8 units Insulin Aspart (Novolog) 5 unit SUBCUT 1200 [facility] Last Admin: 09/27/17 11:13 Dose: Not Given Insulin Detemir (Levemir) 30 unit SUBCUT DAILY [facility] Last Admin: 09/19/17 08:26 Dose: 30 units Non-Formulary Medication (Vancomycin/0.9 % Sod Chloride [Vanco 1.5 Gm/250 Ml-0.9 % Nacl]) 1.5 gm IV Q18H [facility] Sodium Chloride (Saline Flush) 10 ml FLUSH Q8H PRN PRN Reason: IV Use - Exam General: Alert, Cooperative, No Acute Distress HEENT: Mucous Membr. Moist/Blaine Lungs: Normal Respiratory Effort Cardiovascular: Regular Rate GI/Abdominal Exam: Soft, Non-Tender Extremities: Other (Walking boot in place on L foot.) Skin: Warm, Dry Psy/Mental Status: Alert - Problem List Review Problem List Initiated/Reviewed/Updated: Yes - My Orders Last 24 Hours: My Active Orders 10/17/17 05:11 CBC WITH AUTO DIFF [HEME] Q7D 10/17/17 06:00 CREATININE W/GFR [CHEM] WEEKLY 09/28/17 12:00 Insulin Aspart [NovoLOG] 6 unit SUBCUT 1200 09/29/17 07:00 VANCOMYCIN TROUGH [CHEM] Routine 10/03/17 05:11 CBC WITH AUTO DIFF [HEME] Q7D 10/03/17 06:00 CREATININE W/GFR [CHEM] WEEKLY 10/03/17 06:23 BLOOD UREA NITROGEN,BUN [CHEM] WEEKLY 10/10/17 05:11 CBC WITH AUTO DIFF [HEME] Q7D 10/10/17 06:00 CREATININE W/GFR [CHEM] WEEKLY 10/10/17 06:23 BLOOD UREA NITROGEN,BUN [CHEM] WEEKLY - Plan Plan:: OVERVIEW HISTORY 56yoM with history of DMT2 admitted to [facility] in swing bed status for rehabilitation, physical therapy, IV antibiotics, and dressing changes on transferred from [facility] after undergoing amputation left great toe due to chronic osteomyelitis with draining sinuses. Patient was admitted to [facility] prior to this for cellulitis and concern for osteomyelitis although initial x-rays were negative. MRI was scheduled however MRI truck broke down so patient was eventually discharged to follow-up with podiatry [facility] where he was admitted and underwent first ray amputation of his left great toe and was started on IV antibiotics per ID. INTERVAL HISTORY Improving course. He was seen by podiatry and ID on 09/27/17 with the remaining sutures from his left foot were removed and he was placed in a walking boot and an ingrown toenail of the right foot was removed. He is planned to continue vancomycin (with diphenhydramine pretreatment), now day #24/42 of antimicrobial therapy and will be switched to once daily daptomycin starting 10/03/17. Next follow-up appointments with podiatry and ID are on 10/09/17. 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 Continue IV antibiotic plan per ID with vancomycin every 18hrs via PICC line with plan to transition to daptomycin daily via PICC line on 10/03/17 to complete 6 week course. Continue with daily dressing changes and wound monitoring. Continue Tylenol scheduled. Secondary Problems: # HTN: Controlled. Continue losartan. # Esophageal reflux: Stable. Continue omeprazole. # DMT2 with polyneuropathy: Initially with significant hypoglycemia early in hospitalization, but now controlled. 3 units sliding scale insulin used in the last week. Continue metformin 1000mg daily, Victoza 1.8mg daily, and Levemir 28 units daily. Will simplify NovoLog regimen to 6 units TID with meals and no sliding scale. # HLD: Stable. Continue rosuvastatin and ASA. # Obesity with body mass index of 30.0-39.9. 1800 ADA calorie reduction, continues to lose modest weight # Reactive thrombocytosis: Improving. # Depression: Stable. Continue escitalopram. Hospitalization details: # FEN: No IVF. Electrolytes normal; continue KCl. Diabetic diet. # PPX: Enoxaparin for DVT ppx. # Code status: FULL. # Emergency contact: Mother. # Disposition: Continue on swing bed status for above management. Plan for discharge to home on 10/03/17 with planned daily outpatient antibiotics and outpatient physical therapy. He continues to be at high risk of readmission due to history of poor self-management of acute and chronic medical conditions at home, ongoing need for dressing changes and wound monitoring, and PICC line management.
[2017-09-28] MEDS: diphenhydrAMINE 25 MG Cap PO SCH (13:42)
[2017-09-28] MEDS: Sodium Chloride 0.9% 10 ML Syringe FLUSH PRN ×2 (13:59→17:00)
[2017-09-28] MEDS: Sodium Chloride 0.9% 100 ML IV SCH (13:59)
[2017-09-28] MEDS: Rosuvastatin 10 MG Tab PO SCH (21:35)
[2017-09-28] MEDS: Enoxaparin 40 MG/0.4 ML Syringe SUBCUT SCH (21:36)
[2017-09-29] MEDS: diphenhydrAMINE 25 MG Cap PO SCH (08:30)
[2017-09-29] MEDS: Insulin Detemir 100 Units/ML 3 ML Pen SUBCUT SCH (08:37)
[2017-09-29] MEDS: Liraglutide (rDNA Origin) 0.6 MG/0.1 ML 3 ML Pen SUBCUT SCH (08:38)
[2017-09-29] MEDS: Insulin Aspart 100 Units/ML 3 ML Pen SUBCUT SCH ×3 (08:38→18:05)
[2017-09-29] MEDS: Omeprazole 20 MG Cap.CR PO SCH (08:41)
[2017-09-29] MEDS: Calcium Citrate/Vitamin D3 315 MG-250 Unit Tab PO SCH ×2 (08:41→18:06)
[2017-09-29] MEDS: metFORMIN 500 MG Tab PO SCH ×2 (08:41→18:06)
[2017-09-29] MEDS: Losartan 25 MG Tab PO SCH (08:41)
[2017-09-29] MEDS: Potassium Chloride 10 MEQ Tab.ER PO SCH ×2 (08:42→20:44)
[2017-09-29] MEDS: Aspirin 325 MG Tab.EC PO SCH (08:42)
[2017-09-29] MEDS: Acetaminophen 325 MG Tab PO SCH ×3 (08:42→20:44)
[2017-09-29] MEDS: Escitalopram 10 MG Tab PO SCH (08:42)
[2017-09-29] MEDS: Bacitracin/Neomycin/Polymyxin B Oint 28.4 GM Tube TOP SCH (08:43)
[2017-09-29] MEDS: Sodium Chloride 0.9% 10 ML Syringe FLUSH PRN (08:45)
[2017-09-29] MEDS: Sodium Chloride 0.9% 100 ML IV SCH (08:45)
[2017-09-29] MEDS: Rosuvastatin 10 MG Tab PO SCH (20:45)
[2017-09-29] MEDS: Enoxaparin 40 MG/0.4 ML Syringe SUBCUT SCH (20:46)
[2017-09-29] MEDS ORDERED: Ondansetron 4 MG Tab.DIS PO PRN (21:59)
[2017-09-30] MEDS: diphenhydrAMINE 25 MG Cap PO SCH ×2 (01:02→18:59)
[2017-09-30] MEDS: Sodium Chloride 0.9% 10 ML Syringe FLUSH PRN ×2 (01:33→04:45)
[2017-09-30] MEDS: Sodium Chloride 0.9% 100 ML IV SCH ×2 (01:38→19:40)
[2017-09-30] MEDS: Insulin Aspart 100 Units/ML 3 ML Pen SUBCUT SCH ×3 (08:10→17:45)
[2017-09-30] MEDS: Liraglutide (rDNA Origin) 0.6 MG/0.1 ML 3 ML Pen SUBCUT SCH (08:11)
[2017-09-30] MEDS: Insulin Detemir 100 Units/ML 3 ML Pen SUBCUT SCH (08:11)
[2017-09-30] MEDS: Omeprazole 20 MG Cap.CR PO SCH (08:12)
[2017-09-30] MEDS: metFORMIN 500 MG Tab PO SCH ×2 (08:12→17:43)
[2017-09-30] MEDS: Calcium Citrate/Vitamin D3 315 MG-250 Unit Tab PO SCH ×2 (08:12→17:43)
[2017-09-30] MEDS: Losartan 25 MG Tab PO SCH (08:13)
[2017-09-30] MEDS: Bacitracin/Neomycin/Polymyxin B Oint 28.4 GM Tube TOP SCH (08:13)
[2017-09-30] MEDS: Aspirin 325 MG Tab.EC PO SCH (08:13)
[2017-09-30] MEDS: Escitalopram 10 MG Tab PO SCH (08:13)
[2017-09-30] MEDS: Potassium Chloride 10 MEQ Tab.ER PO SCH ×2 (08:13→20:45)
[2017-09-30] MEDS: Acetaminophen 325 MG Tab PO SCH ×3 (08:14→20:45)
--- NOTE | 2017-09-30 10:30 | PCM.PN ---
- General Info Date of Service: 09/30/17 Functional Status: Reports: Pain Controlled, Tolerating Diet, Ambulating - Review of Systems General: Reports: Other (had some nausea last night--Zofran resolved. ). Denies : Fever, Weakness, Fatigue, Malaise, Chills HEENT: Reports: No Symptoms Pulmonary: Reports: No Symptoms Cardiovascular: Reports: No Symptoms Gastrointestinal: Reports: No Symptoms Genitourinary: Reports: No Symptoms Musculoskeletal: Reports: No Symptoms Skin: Reports: Bruising Neurological: Reports: No Symptoms Psychiatric: Reports: No Symptoms - Patient Data Vitals - Most Recent: Last Vital Signs Temp 98.8 F 09/30/17 06:54 Pulse 88 09/30/17 06:54 Resp 20 09/30/17 06:54 BP 115/74 09/30/17 08:13 Pulse Ox 94 L 09/30/17 06:54 Weight - Most Recent: 254 lb I&O - Last 24 Hours: Intake & Output 09/29/17 09/30/17 09/30/17 22:59 06:59 14:59 Intake Total 200 560 Output Total 600 450 Balance -400 110 Lab Results Last 24 Hours: Laboratory Results - last 24 hr 09/29/17 09/29/17 09/29/17 Range/Units 11:51 18:03 20:41 POC Glucose 159 H 99 126 H (74-106) mg/dl 09/30/17 Range/Units 06:47 POC Glucose 94 (74-106) mg/dl Med Orders - Current: Current Medications Acetaminophen (Tylenol) 650 mg PO TID [facility] Last Admin: 09/30/17 08:14 Dose: 650 mg Acetaminophen (Tylenol) 650 mg PO Q4H PRN PRN Reason: Pain Last Admin: 09/17/17 02:25 Dose: 650 mg Aspirin (Ecotrin) 325 mg PO DAILY [facility] Last Admin: 09/30/17 08:13 Dose: 325 mg Calcium Citrate (Calcium Citrate + D) 2 tab PO BIDMEALS [facility] Last Admin: 09/30/17 08:12 Dose: 2 tab Diphenhydramine HCl (Benadryl) 25 mg PO Q18H [facility] Last Admin: 09/30/17 01:02 Dose: 25 mg Enoxaparin Sodium (Lovenox) 40 mg SUBCUT BEDTIME [facility] Last Admin: 09/29/17 20:46 Dose: 40 mg Escitalopram Oxalate (Lexapro) 10 mg PO DAILY [facility] Last Admin: 09/30/17 08:13 Dose: 10 mg Vancomycin HCl 1.5 gm/ Sodium (Chloride) 280 mls @ 112 mls/hr IV Q18H [facility] Last Admin: 09/30/17 01:35 Dose: 112 mls/hr Sodium Chloride (Normal Saline) 100 mls @ 20 mls/hr IV Q18H [facility] Last Admin: 09/30/17 01:38 Dose: 20 mls/hr Insulin Aspart (Novolog) 6 unit SUBCUT 0800,1800 [facility] Last Admin: 09/30/17 08:10 Dose: 6 units Insulin Aspart (Novolog) 6 unit SUBCUT DAILY@1200 [facility] Last Admin: 09/29/17 11:54 Dose: 6 unit Insulin Detemir (Levemir) 28 unit SUBCUT DAILY [facility] Last Admin: 09/30/17 08:11 Dose: 28 unit Liraglutide (Victoza) 1.8 mg SUBCUT DAILY [facility] Last Admin: 09/30/17 08:11 Dose: 1.8 mg Losartan Potassium (Cozaar) 25 mg PO DAILY [facility] Last Admin: 09/30/17 08:13 Dose: 25 mg Metformin HCl (Glucophage) 1,000 mg PO BIDMEALS [facility] Last Admin: 09/30/17 08:12 Dose: 1,000 mg Neomycin/Polymyxin/Bacitracin (Triple Antibiotic Oint) 0 gm TOP DAILY [facility] Last Admin: 09/30/17 08:13 Dose: 1 applic Nystatin (Nystop) 0 gm TOP QID PRN PRN Reason: Skin irritation Last Admin: 09/28/17 09:13 Dose: 1 applic Omeprazole (Omeprazole) 20 mg PO ACBREAKFAST [facility] Last Admin: 09/30/17 08:12 Dose: 20 mg Ondansetron HCl (Zofran Odt) 4 mg PO Q4H PRN PRN Reason: Nausea/Vomiting Last Admin: 09/29/17 22:12 Dose: 4 mg Polyethylene Glycol (Miralax) 17 gm PO DAILY PRN PRN Reason: Constipation Potassium Chloride (Klor-Con 10) 10 meq PO BID [facility] Last Admin: 09/30/17 08:13 Dose: 10 meq Rosuvastatin Calcium (Crestor) 5 mg PO BEDTIME [facility] Last Admin: 09/29/17 20:45 Dose: 5 mg Sodium Chloride (Saline Flush) 10 ml FLUSH ASDIRECTED PRN PRN Reason: IV Use Last Admin: 09/30/17 04:45 Dose: 10 ml Vancomycin HCl (Pharmacy To Dose - Vancomycin) 0 dose .XX ASDIRECTED [facility] Discontinued Medications Calcium Citrate (Calcium Citrate + D) 1 tab PO BIDMEALS [facility] Last Admin: 09/11/17 08:00 Dose: 1 tab Vancomycin HCl 1.5 gm/ Sodium (Chloride) 250 mls @ 166.667 mls/hr IV Q18H [facility] Last Admin: 09/12/17 20:42 Dose: 166.667 mls/hr Insulin Aspart (Novolog) 15 unit SUBCUT TIDMEALS [facility] Last Admin: 09/11/17 12:01 Dose: 15 units Insulin Aspart (Novolog) 0 unit SUBCUT WITHMEALSANDBED [facility] PRN Reason: Protocol Last Admin: 09/28/17 08:20 Dose: Not Given Insulin Aspart (Novolog) 12 unit SUBCUT TIDMEALS [facility] Last Admin: 09/12/17 09:50 Dose: Not Given Insulin Aspart (Novolog) 8 unit SUBCUT BID [facility] Last Admin: 09/12/17 09:47 Dose: 8 units Insulin Aspart (Novolog) 5 unit SUBCUT DAILY [facility] Insulin Aspart (Novolog) 8 unit SUBCUT 0800,1800 [facility] Last Admin: 09/21/17 08:13 Dose: 8 units Insulin Aspart (Novolog) 5 unit SUBCUT 1200 [facility] Last Admin: 09/27/17 11:13 Dose: Not Given Insulin Detemir (Levemir) 30 unit SUBCUT DAILY [facility] Last Admin: 09/19/17 08:26 Dose: 30 units Non-Formulary Medication (Vancomycin/0.9 % Sod Chloride [Vanco 1.5 Gm/250 Ml-0.9 % Nacl]) 1.5 gm IV Q18H [facility] Sodium Chloride (Saline Flush) 10 ml FLUSH Q8H PRN PRN Reason: IV Use - Exam Quality Assessment: No: Supplemental Oxygen General: Alert, Oriented Neck: Supple Lungs: Clear to Auscultation, Normal Respiratory Effort Cardiovascular: Regular Rate, Regular Rhythm GI/Abdominal Exam: Normal Bowel Sounds Back Exam: No: CVA Tenderness (L), CVA Tenderness (R) Extremities: No Pedal Edema Skin: Other (Left great toe, Steri-Strips, surgical wound intact) Wound/Incisions: Dressing Dry and Intact, No Drainage Psy/Mental Status: Alert, Normal Affect, Normal Mood - Problem List Review Problem List Initiated/Reviewed/Updated: Yes - My Orders Last 24 Hours: My Active Orders 09/29/17 21:59 Ondansetron [Zofran ODT] 4 mg PO Q4H PRN - Plan Plan:: OVERVIEW HISTORY 56yoM with history of DMT2 admitted to in swing bed status for rehabilitation, physical therapy, IV antibiotics, and dressing changes on transferred from [facility] after undergoing amputation left great toe due to chronic osteomyelitis with draining sinuses. Patient was admitted to prior to this for cellulitis and concern for osteomyelitis although initial x-rays were negative. MRI was scheduled however MRI truck broke down so patient was eventually discharged to follow-up with podiatry [facility] where he was admitted and underwent first ray amputation of his left great toe and was started on IV antibiotics per ID. INTERVAL HISTORY Improving course. He was seen by podiatry and ID on 09/27/17 with the remaining sutures from his left foot were removed and he was placed in a walking boot and an ingrown toenail of the right foot was removed. He is planned to continue vancomycin (with diphenhydramine pretreatment), will be switched to once daily daptomycin starting 10/03/17. Next follow-up appointments with podiatry and ID are on 10/09/17. 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 Continue IV antibiotic plan per ID with vancomycin every 18hrs via PICC line with plan to transition to daptomycin daily via PICC line on 10/03/17 to complete 6 week course. Continue with daily dressing changes and wound monitoring. Continue Tylenol scheduled. PPX: Enoxaparin for DVT ppx. Secondary Problems: HTN: Controlled. Continue losartan. Esophageal reflux: Stable. Continue omeprazole. DMT2 with polyneuropathy: Initially with significant hypoglycemia early in hospitalization, but now controlled. 3 units sliding scale insulin used in the last week. Continue metformin 1000mg daily, Victoza 1.8mg daily, and Levemir 28 units daily. Will simplify NovoLog regimen to 6 units TID with meals and no sliding scale. HLD: Stable. Continue rosuvastatin and ASA. Obesity with body mass index of 30.0-39.9. 1800 ADA calorie reduction, continues to lose modest weight Reactive thrombocytosis: Improving. Depression: Stable. Continue escitalopram. Disposition: Continue on swing bed status for above management. Plan for discharge to home on 10/03/17 with planned daily outpatient antibiotics and outpatient physical therapy. He continues to be at high risk of readmission due to history of poor self-management of acute and chronic medical conditions at home, ongoing need for dressing changes and wound monitoring, and PICC line management. Overall plan and disposition, continue vancomycin changed to once daily daptomycin starting 10/03/17 upon discharge with outpatient antibiotics and PT. Follow-up with podiatry and ID on 10/09/17.
[2017-09-30] MEDS: Rosuvastatin 10 MG Tab PO SCH (20:45)
[2017-09-30] MEDS: Enoxaparin 40 MG/0.4 ML Syringe SUBCUT SCH (20:45)
[2017-10-01] MEDS: Omeprazole 20 MG Cap.CR PO SCH (08:04)
[2017-10-01] MEDS: Calcium Citrate/Vitamin D3 315 MG-250 Unit Tab PO SCH ×2 (08:05→17:59)
[2017-10-01] MEDS: Insulin Aspart 100 Units/ML 3 ML Pen SUBCUT SCH ×3 (08:05→17:59)
[2017-10-01] MEDS: metFORMIN 500 MG Tab PO SCH ×2 (08:05→18:00)
[2017-10-01] MEDS: Potassium Chloride 10 MEQ Tab.ER PO SCH ×2 (08:07→20:25)
[2017-10-01] MEDS: Aspirin 325 MG Tab.EC PO SCH (08:07)
[2017-10-01] MEDS: Losartan 25 MG Tab PO SCH (08:07)
[2017-10-01] MEDS: Liraglutide (rDNA Origin) 0.6 MG/0.1 ML 3 ML Pen SUBCUT SCH (08:08)
[2017-10-01] MEDS: Escitalopram 10 MG Tab PO SCH (08:08)
[2017-10-01] MEDS: Acetaminophen 325 MG Tab PO SCH ×3 (08:08→20:25)
[2017-10-01] MEDS: Insulin Detemir 100 Units/ML 3 ML Pen SUBCUT SCH (08:10)
[2017-10-01] MEDS: Bacitracin/Neomycin/Polymyxin B Oint 28.4 GM Tube TOP SCH (09:28)
[2017-10-01] MEDS: diphenhydrAMINE 25 MG Cap PO SCH (13:09)
[2017-10-01] MEDS: Sodium Chloride 0.9% 100 ML IV SCH (14:08)
[2017-10-01] MEDS: Sodium Chloride 0.9% 10 ML Syringe FLUSH PRN (14:11)
[2017-10-01] MEDS: Enoxaparin 40 MG/0.4 ML Syringe SUBCUT SCH (20:25)
[2017-10-01] MEDS: Rosuvastatin 10 MG Tab PO SCH (20:25)
[2017-10-02] MEDS: Potassium Chloride 10 MEQ Tab.ER PO SCH (08:00)
[2017-10-02] MEDS: Insulin Detemir 100 Units/ML 3 ML Pen SUBCUT SCH (08:00)
[2017-10-02] MEDS: Sodium Chloride 0.9% 100 ML IV SCH (08:00)
[2017-10-02] MEDS: metFORMIN 500 MG Tab PO SCH (08:00)
[2017-10-02] MEDS: diphenhydrAMINE 25 MG Cap PO SCH (08:00)
[2017-10-02] MEDS: Calcium Citrate/Vitamin D3 315 MG-250 Unit Tab PO SCH (08:00)
[2017-10-02] MEDS: Liraglutide (rDNA Origin) 0.6 MG/0.1 ML 3 ML Pen SUBCUT SCH (08:00)
[2017-10-02] MEDS: Losartan 25 MG Tab PO SCH (08:00)
[2017-10-02] MEDS: Escitalopram 10 MG Tab PO SCH (08:00)
[2017-10-02] MEDS: Acetaminophen 325 MG Tab PO SCH (08:00)
[2017-10-02] MEDS: Bacitracin/Neomycin/Polymyxin B Oint 28.4 GM Tube TOP SCH (08:00)
[2017-10-02] MEDS: Aspirin 325 MG Tab.EC PO SCH (08:00)
[2017-10-02] MEDS: Omeprazole 20 MG Cap.CR PO SCH (08:00)
[2017-10-02] MEDS: Insulin Aspart 100 Units/ML 3 ML Pen SUBCUT SCH ×2 (08:00→12:00)
[2017-10-02 13:01] VITALS: BP 110/60
--- NOTE | 2017-10-04 10:19 | PCM.DCSUM1 ---
Discharge Summary - Hospital Course HPI Initial Comments: 56-year-old T2 DM patient was transferred up here from [facility] after undergoing amputation left great toe due to chronic osteomyelitis with draining sinuses. Patient was admitted here at [facility] acutely for cellulitis and concern for osteomyelitis although initial x-rays were negative for also myelitis. MRI was scheduled however MRI truck broke down so patient was eventually discharged to follow-up with podiatry [facility] where he was subsequently underwent first ray amputation of his left great toe. He was placed in swing bed with IV antibiotics vancomycin via PICC line long with rehabilitation and physical therapy for at least 1 week. - Discharge Data Discharge Date: 10/02/17 Discharge Disposition: Home, Self-Care 01 Condition: Good - Patient Summary/Data Complications: Patient did not have much complications other than some mild hypoglycemia which required insulin adjustments and decrease in his doses. Consults: Consultations 09/10/17 17:24 Consult to Physical Therapy [PT Evaluation and Treatment] [CONS] Routine Hospital Course: Patient's hospital course went well, he did follow-up with podiatry and infectious disease in [place] and had his remaining sutures removed of his left foot and patient was placed in a walking boot. He did have ingrown toenail of his right foot which was removed. He continue with IV vancomycin through a PICC line. His pain was well-controlled, he was tolerating his diet, and he was ambulating accordingly. At one point he did become nauseated without any concern however Zofran was given and it resolved. He did have some decrease in his insulin requirements and was taken off prandial coverage. Pharmacy was monitoring vancomycin levels. He had no complications with receiving vancomycin. - Discharge Plan Home Medications: Home Meds Acetaminophen [Tylenol] 650 mg PO TID 02/27/17 [History] Aspirin [Ecotrin] 325 mg PO DAILY 02/27/17 [History] Calcium Carbonate/Vitamin D3 [Calcium 600 + Vit D 400 Softgl] 1 tab PO BIDMEALS 02/27/17 [History] Insulin Aspart [NovoLOG] 4 - 15 units SQ WITHMEALSANDBED 02/27/17 [History] Omeprazole 20 mg PO ACBREAKFAST 02/27/17 [History] Polyethylene Glycol 3350 [MiraLAX] 17 gm PO DAILY PRN 02/27/17 [History] Rosuvastatin [Crestor] 5 mg PO BEDTIME 02/27/17 [History] Liraglutide [Victoza] 1.8 mg SUBCUT DAILY 03/14/17 [History] metFORMIN [Glucophage] 1,000 mg PO BIDMEALS 03/14/17 [History] Escitalopram [Lexapro] 10 mg PO DAILY 05/11/17 [History] Potassium Chloride 10 meq PO BID 05/11/17 [History] Idosorb* 1 applic TOP DAILY PRN 08/29/17 [History] Losartan Potassium 25 mg PO DAILY 08/29/17 [History] Insulin Glarg,Human.Rec.Analog [LantUS Solostar] 30 units SQ DAILY 09/10/17 [ History] Vancomycin/0.9 % Sod Chloride [Vanco 1.5 gm/250 ml-0.9% NaCl] 1.5 gm IV Q18H [History] diphenhydrAMINE [Benadryl] 25 mg PO Q18H 09/10/17 [History] - Discharge Summary/Plan Comment DC Time >30 min.: Yes Discharge Summary/Plan Comment: Patient was discharged to home status with outpatient physical therapy and outpatient PICC line antibiotics. Final diagnosis Debilitation, much improved Status post amputation of great toe of left foot Hypertension Diabetes mellitus Hyperlipidemia Obesity - Patient Data Vitals - Most Recent: Last Vital Signs Temp 97.3 F 10/02/17 07:00 Pulse 77 10/02/17 07:00 Resp 18 10/02/17 07:00 BP 110/60 10/02/17 07:00 Pulse Ox 96 10/02/17 07:00 Weight - Most Recent: 255 lb Med Orders - Current: Current Medications Discontinued Medications Acetaminophen (Tylenol) 650 mg PO TID [facility] Last Admin: 10/02/17 08:00 Dose: 650 mg Acetaminophen (Tylenol) 650 mg PO Q4H PRN PRN Reason: Pain Last Admin: 09/17/17 02:25 Dose: 650 mg Aspirin (Ecotrin) 325 mg PO DAILY [facility] Last Admin: 10/02/17 08:00 Dose: 325 mg Calcium Citrate (Calcium Citrate + D) 1 tab PO BIDMEALS [facility] Last Admin: 09/11/17 08:00 Dose: 1 tab Calcium Citrate (Calcium Citrate + D) 2 tab PO BIDMEALS [facility] Last Admin: 10/02/17 08:00 Dose: 2 tab Diphenhydramine HCl (Benadryl) 25 mg PO Q18H [facility] Last Admin: 10/02/17 08:00 Dose: 25 mg Enoxaparin Sodium (Lovenox) 40 mg SUBCUT BEDTIME [facility] Last Admin: 10/01/17 20:25 Dose: 40 mg Escitalopram Oxalate (Lexapro) 10 mg PO DAILY [facility] Last Admin: 10/02/17 08:00 Dose: 10 mg Vancomycin HCl 1.5 gm/ Sodium (Chloride) 250 mls @ 166.667 mls/hr IV Q18H [facility] Last Admin: 09/12/17 20:42 Dose: 166.667 mls/hr Vancomycin HCl 1.5 gm/ Sodium (Chloride) 280 mls @ 112 mls/hr IV Q18H [facility] Last Admin: 10/02/17 10:30 Dose: 112 mls/hr Sodium Chloride (Normal Saline) 100 mls @ 20 mls/hr IV Q18H [facility] Last Admin: 10/02/17 08:00 Dose: 20 mls/hr Insulin Aspart (Novolog) 15 unit SUBCUT TIDMEALS [facility] Last Admin: 09/11/17 12:01 Dose: 15 units Insulin Aspart (Novolog) 0 unit SUBCUT WITHMEALSANDBED [facility] PRN Reason: Protocol Last Admin: 09/28/17 08:20 Dose: Not Given Insulin Aspart (Novolog) 12 unit SUBCUT TIDMEALS [facility] Last Admin: 09/12/17 09:50 Dose: Not Given Insulin Aspart (Novolog) 8 unit SUBCUT BID [facility] Last Admin: 09/12/17 09:47 Dose: 8 units Insulin Aspart (Novolog) 5 unit SUBCUT DAILY [facility] Insulin Aspart (Novolog) 8 unit SUBCUT 0800,1800 [facility] Last Admin: 09/21/17 08:13 Dose: 8 units Insulin Aspart (Novolog) 5 unit SUBCUT 1200 [facility] Last Admin: 09/27/17 11:13 Dose: Not Given Insulin Aspart (Novolog) 6 unit SUBCUT 0800,1800 [facility] Last Admin: 10/02/17 08:00 Dose: 6 units Insulin Aspart (Novolog) 6 unit SUBCUT DAILY@1200 [facility] Last Admin: 10/02/17 12:00 Dose: 6 unit Insulin Detemir (Levemir) 30 unit SUBCUT DAILY [facility] Last Admin: 09/19/17 08:26 Dose: 30 units Insulin Detemir (Levemir) 28 unit SUBCUT DAILY [facility] Last Admin: 10/02/17 08:00 Dose: 28 unit Liraglutide (Victoza) 1.8 mg SUBCUT DAILY [facility] Last Admin: 10/02/17 08:00 Dose: 1.8 mg Losartan Potassium (Cozaar) 25 mg PO DAILY [facility] Last Admin: 10/02/17 08:00 Dose: 25 mg Metformin HCl (Glucophage) 1,000 mg PO BIDMEALS [facility] Last Admin: 10/02/17 08:00 Dose: 1,000 mg Neomycin/Polymyxin/Bacitracin (Triple Antibiotic Oint) 0 gm TOP DAILY [facility] Last Admin: 10/02/17 08:00 Dose: 1 applic Non-Formulary Medication (Vancomycin/0.9 % Sod Chloride [Vanco 1.5 Gm/250 Ml-0.9 % Nacl]) 1.5 gm IV Q18H [facility] Nystatin (Nystop) 0 gm TOP QID PRN PRN Reason: Skin irritation Last Admin: 09/28/17 09:13 Dose: 1 applic Omeprazole (Omeprazole) 20 mg PO ACBREAKFAST [facility] Last Admin: 10/02/17 08:00 Dose: 20 mg Ondansetron HCl (Zofran Odt) 4 mg PO Q4H PRN PRN Reason: Nausea/Vomiting Last Admin: 09/29/17 22:12 Dose: 4 mg Polyethylene Glycol (Miralax) 17 gm PO DAILY PRN PRN Reason: Constipation Potassium Chloride (Klor-Con 10) 10 meq PO BID [facility] Last Admin: 10/02/17 08:00 Dose: 10 meq Rosuvastatin Calcium (Crestor) 5 mg PO BEDTIME [facility] Last Admin: 10/01/17 20:25 Dose: 5 mg Sodium Chloride (Saline Flush) 10 ml FLUSH Q8H PRN PRN Reason: IV Use Sodium Chloride (Saline Flush) 10 ml FLUSH ASDIRECTED PRN PRN Reason: IV Use Last Admin: 10/01/17 14:11 Dose: 10 ml Vancomycin HCl (Pharmacy To Dose - Vancomycin) 0 dose .XX ASDIRECTED [facility] *Q Meaningful Use (DIS) - VTE *Q VTE Criteria *Q: - Stroke *Q Stroke Criteria *Q: - AMI *Q AMI Criteria *Q:
== END 2017-10-02 13:55 | disposition home or self-care (01) | DRG 862 ==
LOC: KA.MS 20:00
PROVIDERS: ADMIT Family Medicine; ATTEND Family Medicine
DX: Z47.81 Encounter for orthopedic aftercare following surgical amputation (principal); K21.9 Gastro-esophageal reflux disease without esophagitis; E11.42 Type 2 diabetes mellitus with diabetic polyneuropathy; E78.5 Hyperlipidemia, unspecified; I10 Essential (primary) hypertension; E66.9 Obesity, unspecified; F41.8 Other specified anxiety disorders; D47.3 Essential (hemorrhagic) thrombocythemia; Z79.899 Other long term (current) drug therapy; Z68.32 Body mass index [BMI] 32.0-32.9, adult; Z88.8 Allergy status to other drugs, medicaments and biological substances; Z79.4 Long term (current) use of insulin
CPT/HCPCS: 36415; 80202; 82565; 82962; 84520; 85025; 85651; 86140; 87070; 87077; 87186; 87205; 97110-GP; 97116-GP; 97161-GP; A9270-GY; J1650; J1815-GY; J3370; J3490; J7050

== ENCOUNTER 2018-01-22 12:17 | Inpatient (IN) | payer BC, MEDICAID ==
[2018-01-22] MEDS ORDERED: Polyethylene Glycol 3350 Powder 17 GM Packet PO PRN (16:04)
[2018-01-22] MEDS ORDERED: Magnesium Hydroxide 400 MG/5 ML Susp 30 ML Cup PO PRN (16:04)
[2018-01-22] MEDS ORDERED: SOD CHLORIDE IV SCH (16:15)
[2018-01-22] MEDS ORDERED: VANCOMYCIN IV SCH (16:15)
[2018-01-22] MEDS ORDERED: Insulin Aspart 100 Units/ML 3 ML Pen SUBCUT SCH (16:15)
[2018-01-22] MEDS ORDERED: [UNRECOGNIZED DRUG - OTHER] IV SCH (16:15)
[2018-01-22] MEDS: Calcium Citrate/Vitamin D3 315 MG-250 Unit Tab PO SCH (18:07)
[2018-01-22] MEDS: diphenhydrAMINE 25 MG Cap PO SCH (18:08)
[2018-01-22] MEDS: metFORMIN 500 MG Tab PO SCH (18:08)
[2018-01-22] MEDS: Insulin Aspart 100 Units/ML 3 ML Pen SUBCUT SCH (18:12)
[2018-01-22] MEDS ORDERED: Sodium Chloride 0.9% 100 ML ONE (19:25)
[2018-01-22] MEDS: Vancomycin 2 GM in Sodium Chloride 0.9% 500 ML IV SCH (19:54)
[2018-01-22] MEDS: Sodium Chloride 0.9% 10 ML Syringe FLUSH SCH (19:58)
[2018-01-22] MEDS: Potassium Chloride 10 MEQ Tab.ER PO SCH (21:21)
[2018-01-22] MEDS: Acetaminophen 325 MG Tab PO SCH (21:23)
[2018-01-23] MEDS ORDERED: Insulin Aspart 100 Units/ML 3 ML Pen SUBCUT SCH (08:00)
[2018-01-23] MEDS: Omeprazole 20 MG Cap.CR PO SCH (09:09)
[2018-01-23] MEDS: Calcium Citrate/Vitamin D3 315 MG-250 Unit Tab PO SCH ×2 (09:10→17:45)
[2018-01-23] MEDS: metFORMIN 500 MG Tab PO SCH ×2 (09:10→17:45)
[2018-01-23] MEDS: Insulin Aspart 100 Units/ML 3 ML Pen SUBCUT SCH ×3 (09:11→17:43)
[2018-01-23] MEDS: Multivitamins with Minerals/Iron/Folic Acid/Lycopene Tab PO SCH (09:12)
[2018-01-23] MEDS: Rosuvastatin 10 MG Tab PO SCH (09:13)
[2018-01-23] MEDS: Aspirin 325 MG Tab.EC PO SCH (09:15)
[2018-01-23] MEDS: Hydrochlorothiazide 25 MG Tab PO SCH (09:15)
[2018-01-23] MEDS: Losartan 25 MG Tab PO SCH (09:15)
[2018-01-23] MEDS: Liraglutide (rDNA Origin) 0.6 MG/0.1 ML 3 ML Pen SUBCUT SCH (09:16)
[2018-01-23] MEDS: Potassium Chloride 10 MEQ Tab.ER PO SCH ×2 (09:16→20:18)
[2018-01-23] MEDS: Escitalopram 10 MG Tab PO SCH (09:19)
[2018-01-23] MEDS: Acetaminophen 325 MG Tab PO SCH ×3 (09:19→20:18)
[2018-01-23] MEDS: Insulin Detemir 100 Units/ML 3 ML Pen SUBCUT SCH (09:22)
--- NOTE | 2018-01-23 10:15 | PCM.HP ---
H&P History of Present Illness - General Date of Service: 01/23/18 Admit Problem/Dx: Admission Diagnosis/Problem Admission Diagnosis/Problem Amputation of toe Source of Information: Patient, Old Records, RN History Limitations: Reports: No Limitations - History of Present Illness Initial Comments - Free Text/Narative: 57-year-old gentleman with long-standing diabetes mellitus was admitted into prison care here at [facility] after status post left foot infection from diabetic ulcer with osteomyelitis. He will receive PT/OT, continued antibiotics and wound care. Had great toe amputation last fall. Bernardo has a 20 year history of diabetes mellitus with previous left great toe amputation fall 2016. In the past he had been treated extensively with daptomycin for MRSA osteomyelitis with subsequently complete healing of his left foot wound. However the top of the left foot became red and he developed new drainage on the bottom of the foot from a "pus pocket". His sister opened the plantar lesion was evaluated at the podiatry clinic on January [address] Juarez noted full thickness ulceration with purulent drainage. Culture grew MRSA. He was admitted and started on vancomycin and beta-lactam antibiotics. He underwent left foot TMA on 01/18/18. He arrived in [facility] swing bed with a PICC placed. Left Foot Pain Score (Numeric/FACES): 2 - Related Data Allergies/Adverse Reactions: Allergies Allergy/AdvReac Type Severity Reaction Status Date / Time vancomycin Allergy Intermediate Rash Verified 01/22/18 20:46 Sulfa (Sulfonamide Allergy Shortness Verified 01/22/18 20:46 Antibiotics) of Breath Home Medications: Home Meds Acetaminophen [Tylenol] 650 mg PO TID 02/27/17 [History] Aspirin [Ecotrin] 325 mg PO DAILY 02/27/17 [History] Calcium Carbonate/Vitamin D3 [Calcium 600 + Vit D 400 Softgl] 1 tab PO BIDMEALS 02/27/17 [History] Omeprazole 20 mg PO ACBREAKFAST 02/27/17 [History] Polyethylene Glycol 3350 [MiraLAX] 17 gm PO DAILY PRN 02/27/17 [History] Liraglutide [Victoza] 1.8 mg SUBCUT DAILY 03/14/17 [History] metFORMIN [Glucophage] 1,000 mg PO BIDMEALS 03/14/17 [History] Escitalopram [Lexapro] 10 mg PO DAILY 05/11/17 [History] Losartan Potassium 25 mg PO DAILY 08/29/17 [History] Insulin Glarg,Human.Rec.Analog [LantUS Solostar] 22 units SQ DAILY 09/10/17 [ History] diphenhydrAMINE [Benadryl] 25 mg PO Q12H 09/10/17 [History] Hydrochlorothiazide 25 mg PO DAILY 01/22/18 [History] Insulin Aspart [NovoLOG] 7 unit SQ TIDMEALS 01/22/18 [History] Magnesium Hydroxide [Milk of Magnesia] 30 ml PO DAILY PRN 01/22/18 [History] Multivitamin with Minerals [Multivitamins with Minerals] 1 each PO DAILY [History] Potassium Chloride 10 meq PO BID 01/22/18 [History] Rosuvastatin [Crestor] 2.5 mg PO DAILY 01/22/18 [History] Vancomycin/0.9 % Sod Chloride [Vanco 2 Gram/500 ml-0.9% NaCl] 2 gm IV Q12H 01/22 [History] traMADol [Ultram] 50 - 100 mg PO Q6H PRN 01/22/18 [History] Past Medical History HEENT History: Reports: Impaired Vision Cardiovascular History: Reports: High Cholesterol, Hypertension Respiratory History: Reports: None Gastrointestinal History: Reports: GERD Genitourinary History: Reports: Chronic Renal Insuffiency Musculoskeletal History: Reports: Amputation Other Musculoskeletal History: 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 Neurological History: Reports: Neuropathy, Diabetic Psychiatric History: Reports: Anxiety, Depression, Panic Attack Endocrine/Metabolic History: Reports: Diabetes, Type II, IDDM, Obesity/BMI 30+ Dermatologic History: Reports: Cellulitis - Infectious Disease History Infectious Disease History: Reports: MRSA - Past Surgical History HEENT Surgical History: Reports: None Cardiovascular Surgical History: Reports: None Respiratory Surgical History: Reports: None GI Surgical History: Reports: Appendectomy, Cholecystectomy, Colonoscopy Male Surgical History: Reports: None Endocrine Surgical History: Reports: None Neurological Surgical History: Reports: None Musculoskeletal Surgical History: Reports: Amputation, Arthroscopic Knee Dermatological Surgical History: Reports: None Social & Family History - Family History HEENT: Reports: None Cardiac: Reports: None Respiratory: Reports: None GI: Reports: None : Reports: None OBGYN: Reports: None Musculoskeletal: Reports: None Neurological: Reports: None Psychiatric: Reports: None Endocrine/Metabolic: Reports: Diabetes, type II Hematologic: Reports: None Immunologic: Reports: None Dermatologic: Reports: None Oncologic: Reports: Prostate - Tobacco Use Smoking Status *Q: Never Smoker Second Hand Smoke Exposure: No - Caffeine Use Caffeine Use: Reports: Soda - Recreational Drug Use Recreational Drug Use: No H&P Review of Systems - Review of Systems: Review Of Systems: See Below General: Reports: No Symptoms. Denies: Fever HEENT: Reports: No Symptoms Pulmonary: Reports: No Symptoms Cardiovascular: Reports: No Symptoms Gastrointestinal: Reports: Other (Slightly loose stools) Genitourinary: Reports: No Symptoms Musculoskeletal: Reports: Foot Pain (5/10 left foot pain) Skin: Reports: Wound (Coccyx breakdown present on admission) Psychiatric: Reports: No Symptoms Neurological: Reports: Pre-Existing Deficit, Difficulty Walking Hematologic/Lymphatic: Reports: No Symptoms Immunologic: Reports: No Symptoms Exam - Exam Exam: See Below - Vital Signs Vital Signs: Last Vital Signs Temp 98.2 F 01/23/18 07:00 Pulse 76 01/23/18 07:45 Resp 16 01/23/18 07:00 BP 122/70 01/23/18 09:15 Pulse Ox 97 01/23/18 07:45 Weight: 273 lb 6.4 oz - Exam Quality Assessment: No: Supplemental Oxygen General: Alert, Oriented, 4 HEENT: Conjunctiva Clear Neck: Supple, Trachea Midline, 2 Lungs: Clear to Auscultation, Normal Respiratory Effort Cardiovascular: Regular Rate, Regular Rhythm GI/Abdominal Exam: Soft. No: Distended Back Exam: No: CVA Tenderness (L), CVA Tenderness (R) Extremities: No Pedal Edema Skin: Warm, Dry, Intact, Wound, Incision (Bulky dressing left foot, no drainage) Neurological: Cranial Nerves Intact Neuro Extensive - Mental Status: Alert, Oriented x3, Normal Mood/Affect, Normal Cognition Neuro Extensive - Motor, Sensory, Reflexes: CN II-XII Intact, Normal Gait, Normal Reflexes Psychiatric: Alert, Normal Affect, Normal Mood - Patient Data Lab Results Last 24 hrs: Laboratory Results - last 24 hr 01/22/18 01/22/18 01/23/18 Range/Units 18:04 21:20 06:30 Creatinine 0.82 (0.51-1.17) mg/dL Est Cr Clr Drug Dosing 112.33 mL/min Estimated GFR (MDRD) > 60 mL/min POC Glucose 312 H 230 H (74-106) mg/dl Vancomycin Trough 24.5 H* (10-20) ug/mL 01/23/18 Range/Units 09:07 Creatinine (0.51-1.17) mg/dL Est Cr Clr Drug Dosing mL/min Estimated GFR (MDRD) mL/min POC Glucose 245 H (74-106) mg/dl Vancomycin Trough (10-20) ug/mL Result Diagrams: 01/23/18 06:30 Problem List Initiated/Reviewed/Updated: Yes Orders Last 24hrs: Active Orders 24 hr Category Date Time Status Patient Status [ADT] Routine ADT 01/22/18 14:20 Ordered Blood Glucose Check, Bedside [RC] QIDACANDBED Care 01/22/18 14:20 Active Communication Order [RC] DAILY Care 01/22/18 14:46 Active Communication Order [RC] DAILY Care 01/22/18 14:50 Active Communication Order [RC] PER UNIT ROUTINE Care 01/22/18 15:07 Active Communication Order [RC] WEEKLY Care 01/22/18 15:04 Active Dressing Change [Wound Care] [RC] DAILY Care 01/22/18 15:09 Active Intake and Output [RC] 1400,2200,0600 Care 01/22/18 14:20 Active Up With Assistance [RC] ASDIRECTED Care 01/22/18 14:20 Active VTE/DVT Education [RC] PER UNIT ROUTINE Care 01/22/18 14:20 Active Vital Signs [RC] 0700,1700 Care 01/22/18 14:20 Active Consult to Clean Out Driller [CONS] Routine Cons 01/22/18 14:20 Active Consult to Organic Chemistry Teacher [CONS] Routine Cons 01/22/18 14:20 Active PT Evaluation and Treatment [CONS] Routine Cons 01/22/18 14:20 Active [employer] Diet [DIET] Diet 01/22/18 Dinner Active CBC WITH AUTO DIFF [HEME] Routine Lab 01/29/18 06:00 Ordered CBC WITH AUTO DIFF [HEME] Routine Lab 02/05/18 06:00 Ordered CULTURE WOUND [RM] Routine Lab 01/23/18 10:00 Ordered VANCOMYCIN TROUGH [CHEM] Routine Lab 01/25/18 07:30 Ordered Acetaminophen [Tylenol] Med 01/22/18 21:00 Active 650 mg PO TID Aspirin [Ecotrin] Med 01/23/18 09:00 Active 325 mg PO DAILY Calcium Citrate/Vitamin D3 [Calcium Citrate + D] Med 01/22/18 18:00 Active 2 tab PO BIDMEALS Escitalopram [Lexapro] Med 01/23/18 09:00 Active 10 mg PO DAILY FA/Lycopene/Lut/MV,Ca,Iron,Min [Centrum] Med 01/23/18 09:00 Active 1 tab PO DAILY Hydrochlorothiazide Med 01/23/18 09:00 Active 25 mg PO DAILY Insulin Aspart [NovoLOG] Med 01/22/18 18:00 Active 7 unit SUBCUT TIDMEALS Insulin Detemir [Levemir] Med 01/23/18 09:00 Active 13 unit SUBCUT DAILY Liraglutide [Victoza] Med 01/23/18 09:00 Active 1.8 mg SUBCUT DAILY Losartan [Cozaar] Med 01/23/18 09:00 Active 25 mg PO DAILY Magnesium Hydroxide [Milk of Magnesia] Med 01/22/18 16:04 Active 30 ml PO DAILY PRN Omeprazole Med 01/23/18 07:30 Active 20 mg PO ACBREAKFAST Polyethylene Glycol 3350 [MiraLAX] Med 01/22/18 16:04 Active 17 gm PO DAILY PRN Potassium Chloride [Klor-Con 10] Med 01/22/18 21:00 Active 10 meq PO BID Rosuvastatin [Crestor] Med 01/23/18 09:00 Active 2.5 mg PO DAILY Sodium Chloride 0.9% [Saline Flush] Med 01/22/18 18:30 Active 10 ml FLUSH BID@0630,1830 Vancomycin 1.5 gm Med 01/23/18 20:00 Active Sodium Chloride 0.9% [Normal Saline] 250 ml IV Q12H Vancomycin Pharmacy to Dose [Pharmacy to Dose - Med 01/22/18 16:45 Pending Vancomycin] 0 dose .XX ASDIRECTED diphenhydrAMINE [Benadryl] Med 01/22/18 18:00 Active 25 mg PO Q12H metFORMIN [Glucophage] Med 01/22/18 18:00 Active 1,000 mg PO BIDMEALS traMADol [Ultram] Med 04/10/18 16:04 Active 50 - 100 mg PO Q6H PRN Central Line PICC Insertion [Central Venous Line Oth 01/22/18 14:37 Ordered Insertion] [OM.PC] Routine Resuscitation Status Routine Resus Stat 01/22/18 14:20 Ordered Medication Orders Acetaminophen (Tylenol) 650 mg PO TID [facility] Last Admin: 01/23/18 09:19 Dose: 650 mg Admin: 01/22/18 21:23 Dose: 650 mg Aspirin (Ecotrin) 325 mg PO DAILY [facility] Last Admin: 01/23/18 09:15 Dose: 325 mg Calcium Citrate (Calcium Citrate + D) 2 tab PO BIDMEALS [facility] Last Admin: 01/23/18 09:10 Dose: 2 tab Admin: 01/22/18 18:07 Dose: 2 tab Diphenhydramine HCl (Benadryl) 25 mg PO Q12H [facility] Last Admin: 01/22/18 18:08 Dose: 25 mg Escitalopram Oxalate (Lexapro) 10 mg PO DAILY [facility] Last Admin: 01/23/18 09:19 Dose: 10 mg Hydrochlorothiazide (Hydrochlorothiazide) 25 mg PO DAILY [facility] Last Admin: 01/23/18 09:15 Dose: 25 mg Vancomycin HCl 1.5 gm/ Sodium (Chloride) 250 mls @ 100 mls/hr IV Q12H [facility] Insulin Aspart (Novolog) 7 unit SUBCUT TIDMEALS [facility] Last Admin: 01/23/18 09:11 Dose: 7 units Admin: 01/22/18 18:12 Dose: 7 units Insulin Detemir (Levemir) 13 unit SUBCUT DAILY [facility] Last Admin: 01/23/18 09:22 Dose: 13 units Liraglutide (Victoza) 1.8 mg SUBCUT DAILY [facility] Last Admin: 01/23/18 09:16 Dose: 1.8 mg Losartan Potassium (Cozaar) 25 mg PO DAILY [facility] Last Admin: 01/23/18 09:15 Dose: 25 mg Magnesium Hydroxide (Milk Of Magnesia) 30 ml PO DAILY PRN PRN Reason: Constipation Metformin HCl (Glucophage) 1,000 mg PO BIDMEALS [facility] Last Admin: 01/23/18 09:10 Dose: 1,000 mg Admin: 01/22/18 18:08 Dose: 1,000 mg Multivitamins/Minerals (Centrum) 1 tab PO DAILY [facility] Last Admin: 01/23/18 09:12 Dose: 1 tab Omeprazole (Omeprazole) 20 mg PO ACBREAKFAST [facility] Last Admin: 01/23/18 09:09 Dose: 20 mg Polyethylene Glycol (Miralax) 17 gm PO DAILY PRN PRN Reason: Constipation Potassium Chloride (Klor-Con 10) 10 meq PO BID [facility] Last Admin: 01/23/18 09:16 Dose: 10 meq Admin: 01/22/18 21:21 Dose: 10 meq Rosuvastatin Calcium (Crestor) 2.5 mg PO DAILY [facility] Last Admin: 01/23/18 09:13 Dose: 2.5 mg Sodium Chloride (Saline Flush) 10 ml FLUSH BID@0630,1830 [facility] Last Admin: 01/22/18 19:58 Dose: 10 ml Tramadol HCl (Ultram) 50 - 100 mg PO Q6H PRN PRN Reason: Pain Vancomycin HCl (Pharmacy To Dose - Vancomycin) 0 dose .XX ASDIRECTED [facility] Assessment/Plan Comment:: HISTORY OF PRESENT ILLNESS 57-year-old gentleman with long-standing diabetes mellitus was admitted into prison care here at [facility] after status post left foot infection from diabetic ulcer with osteomyelitis. He will receive PT/OT, continued antibiotics and wound care. Had great toe amputation last fall. Bernardo has a 20 year history of diabetes mellitus with previous left great toe amputation fall 2016. In the past he had been treated extensively with daptomycin for MRSA osteomyelitis with subsequently complete healing of his left foot wound. However the top of the left foot became red and he developed new drainage on the bottom of the foot from a "pus pocket". His sister opened the plantar lesion was evaluated at the podiatry clinic on January [address] Juarez noted full thickness ulceration with purulent drainage. Culture grew MRSA. He was admitted and started on vancomycin and beta-lactam antibiotics. He underwent left foot TMA on 01/18/18. He arrived in [facility] swing bed with a PICC placed. Hospital course Whitaker Raji Patient was taken to OR for Left TMA following clinical diagnosis of osteomyelits with foot infection. He received IV antibiotics of the floor and had PICC line placement. Patient was seen by ID during stay and was given ongoing antibiotic orders. Primary problem Status post left foot transmetatarsal amputation (TMA) DOS January 17, [address] [facility], doing well from a clinical standpoint. PT OT, vancomycin via PICC, careful monitoring of trough. Tylenol for pain. Betadine dressing changes as directed. Chronic ongoing problems Esophageal reflux, PPI therapy Diabetic polyneuropathy associated with diabetes mellitus due to underlying condition HLD; Crestor HTN; ARB, Losartan, HCTZ T2DM, continue [place], Novolog, metformin, Victoza, previous admission required decreased dosages, monitor for ongoing adjustment needs. Anxiety - stable, continue Lexapro (SSRI) Obesity with BMI 30.0-39.9. 1800 ADA calorie MRSA (methicillin resistant Staphylococcus aureus) Full CODE STATUS Future appointments/Consultations January 28, 2018 follow-up podiatry Mendez Alegria
[2018-01-23] MEDS: Sodium Chloride 0.9% 10 ML Syringe FLUSH SCH ×5 (11:43→23:50)
[2018-01-23] MEDS: Vancomycin 2 GM in Sodium Chloride 0.9% 500 ML IV SCH (11:43)
[2018-01-23] MEDS: diphenhydrAMINE 25 MG Cap PO SCH ×2 (11:44→19:37)
[2018-01-24] MEDS: Omeprazole 20 MG Cap.CR PO SCH (07:11)
[2018-01-24] MEDS: diphenhydrAMINE 25 MG Cap PO SCH ×2 (07:11→19:41)
[2018-01-24] MEDS: Insulin Detemir 100 Units/ML 3 ML Pen SUBCUT SCH (08:21)
[2018-01-24] MEDS: Insulin Aspart 100 Units/ML 3 ML Pen SUBCUT SCH ×3 (08:23→18:01)
[2018-01-24] MEDS: Liraglutide (rDNA Origin) 0.6 MG/0.1 ML 3 ML Pen SUBCUT SCH (08:24)
[2018-01-24] MEDS: Calcium Citrate/Vitamin D3 315 MG-250 Unit Tab PO SCH ×2 (08:27→18:03)
[2018-01-24] MEDS: Multivitamins with Minerals/Iron/Folic Acid/Lycopene Tab PO SCH (08:28)
[2018-01-24] MEDS: metFORMIN 500 MG Tab PO SCH ×2 (08:28→18:03)
[2018-01-24] MEDS: Potassium Chloride 10 MEQ Tab.ER PO SCH ×2 (08:29→21:10)
[2018-01-24] MEDS: Escitalopram 10 MG Tab PO SCH (08:29)
[2018-01-24] MEDS: Aspirin 325 MG Tab.EC PO SCH (08:29)
[2018-01-24] MEDS: Losartan 25 MG Tab PO SCH (08:31)
[2018-01-24] MEDS: Rosuvastatin 10 MG Tab PO SCH (08:31)
[2018-01-24] MEDS: Acetaminophen 325 MG Tab PO SCH ×3 (08:33→21:10)
[2018-01-24] MEDS: Hydrochlorothiazide 25 MG Tab PO SCH (08:33)
[2018-01-24] MEDS: Sodium Chloride 0.9% 10 ML Syringe FLUSH SCH ×4 (08:48→23:39)
[2018-01-24] MEDS: traMADol 50 MG Tab PO PRN (11:42)
[2018-01-24] MEDS ORDERED: Alteplase 2 MG Vial IVPUSH ONE (14:10)
[2018-01-25] MEDS: Omeprazole 20 MG Cap.CR PO SCH (06:41)
[2018-01-25] MEDS: diphenhydrAMINE 25 MG Cap PO SCH ×3 (06:41→14:33)
[2018-01-25] MEDS: Insulin Aspart 100 Units/ML 3 ML Pen SUBCUT SCH ×3 (08:26→18:15)
[2018-01-25] MEDS: Insulin Detemir 100 Units/ML 3 ML Pen SUBCUT SCH (08:28)
[2018-01-25] MEDS: Liraglutide (rDNA Origin) 0.6 MG/0.1 ML 3 ML Pen SUBCUT SCH (08:30)
[2018-01-25] MEDS: Calcium Citrate/Vitamin D3 315 MG-250 Unit Tab PO SCH ×2 (08:33→18:18)
[2018-01-25] MEDS: metFORMIN 500 MG Tab PO SCH ×2 (08:34→18:18)
[2018-01-25] MEDS: Multivitamins with Minerals/Iron/Folic Acid/Lycopene Tab PO SCH (08:34)
[2018-01-25] MEDS: Losartan 25 MG Tab PO SCH (08:35)
[2018-01-25] MEDS: Rosuvastatin 5 MG Tab PO SCH (08:35)
[2018-01-25] MEDS: Hydrochlorothiazide 25 MG Tab PO SCH (08:37)
[2018-01-25] MEDS: Aspirin 325 MG Tab.EC PO SCH (08:37)
[2018-01-25] MEDS: Acetaminophen 325 MG Tab PO SCH ×3 (08:38→20:47)
[2018-01-25] MEDS: Escitalopram 10 MG Tab PO SCH (08:38)
[2018-01-25] MEDS: Potassium Chloride 10 MEQ Tab.ER PO SCH ×2 (08:38→20:47)
[2018-01-25] MEDS: Sodium Chloride 0.9% 10 ML Syringe FLUSH SCH ×3 (08:48→14:27)
[2018-01-25] MEDS: traMADol 50 MG Tab PO PRN ×2 (10:17→14:03)
[2018-01-25] MEDS: Sodium Chloride 0.9% 10 ML Syringe IV SCH (18:16)
[2018-01-26] MEDS: traMADol 50 MG Tab PO PRN (05:20)
[2018-01-26] MEDS: diphenhydrAMINE 25 MG Cap PO SCH (07:46)
[2018-01-26] MEDS: Omeprazole 20 MG Cap.CR PO SCH (07:47)
[2018-01-26] MEDS: metFORMIN 500 MG Tab PO SCH ×2 (08:06→17:57)
[2018-01-26] MEDS: Hydrochlorothiazide 25 MG Tab PO SCH (08:07)
[2018-01-26] MEDS: Aspirin 325 MG Tab.EC PO SCH (08:07)
[2018-01-26] MEDS: Calcium Citrate/Vitamin D3 315 MG-250 Unit Tab PO SCH ×2 (08:07→17:57)
[2018-01-26] MEDS: Losartan 25 MG Tab PO SCH (08:07)
[2018-01-26] MEDS: Acetaminophen 325 MG Tab PO SCH ×3 (08:07→20:43)
[2018-01-26] MEDS: Escitalopram 10 MG Tab PO SCH (08:07)
[2018-01-26] MEDS: Multivitamins with Minerals/Iron/Folic Acid/Lycopene Tab PO SCH (08:07)
[2018-01-26] MEDS: Potassium Chloride 10 MEQ Tab.ER PO SCH ×2 (08:07→20:43)
[2018-01-26] MEDS: Insulin Aspart 100 Units/ML 3 ML Pen SUBCUT SCH ×3 (08:08→17:57)
[2018-01-26] MEDS: Insulin Detemir 100 Units/ML 3 ML Pen SUBCUT SCH (08:08)
[2018-01-26] MEDS: Liraglutide (rDNA Origin) 0.6 MG/0.1 ML 3 ML Pen SUBCUT SCH (08:09)
[2018-01-26] MEDS: Rosuvastatin 5 MG Tab PO SCH (08:15)
[2018-01-26] MEDS: Sodium Chloride 0.9% 10 ML Syringe FLUSH SCH (08:40)
[2018-01-26] MEDS: Sodium Chloride 0.9% 10 ML Syringe IV SCH (11:33)
--- NOTE | 2018-01-26 12:00 | PCM.PN ---
- General Info Date of Service: 01/26/18 Subjective Update: Mr. Huertas reports feeling well this morning. Admits to some loose stools stable from the past several days. Tolerating diet without difficulty. Voiding without difficulty. No new concerns. Nursing notes that yesterday incision had moderate discharge with dressing change. - Patient Data Vitals - Most Recent: Last Vital Signs Temp 37.3 C 01/26/18 06:12 Pulse 69 01/26/18 06:12 Resp 18 01/26/18 06:12 BP 110/65 01/26/18 08:07 Pulse Ox 92 L 01/26/18 06:12 Weight - Most Recent: 124.012 kg I&O - Last 24 Hours: Intake & Output 01/25/18 01/26/18 01/26/18 22:59 06:59 14:59 Intake Total 815 100 Output Total 300 800 Balance 515 -700 Lab Results Last 24 Hours: Laboratory Results - last 24 hr 01/25/18 01/25/18 01/26/18 Range/Units 17:40 20:45 07:58 POC Glucose 142 H 124 H 159 H (74-106) mg/dl [facility] Results Last 24 Hours: Microbiology 01/23/18 13:15 Miscellaneous Reference Culture - Preliminary Wound - Foot, Left Staphylococcus Coagulase Neg Gram Stain - Final Med Orders - Current: Current Medications Acetaminophen (Tylenol) 650 mg PO TID [facility] Last Admin: 01/26/18 08:07 Dose: 650 mg Aspirin (Ecotrin) 325 mg PO DAILY [facility] Last Admin: 01/26/18 08:07 Dose: 325 mg Calcium Citrate (Calcium Citrate + D) 2 tab PO BIDMEALS [facility] Last Admin: 01/26/18 08:07 Dose: 2 tab Diphenhydramine HCl (Benadryl) 25 mg PO Q18H [facility] Last Admin: 01/26/18 07:46 Dose: 25 mg Enoxaparin Sodium (Lovenox) 40 mg SUBCUT Q24H [facility] Escitalopram Oxalate (Lexapro) 10 mg PO DAILY [facility] Last Admin: 01/26/18 08:07 Dose: 10 mg Hydrochlorothiazide (Hydrochlorothiazide) 25 mg PO DAILY [facility] Last Admin: 01/26/18 08:07 Dose: 25 mg Vancomycin HCl 1.5 gm/ Sodium (Chloride) 280 mls @ 112 mls/hr IV Q18H [facility] Last Admin: 01/26/18 08:41 Dose: 112 mls/hr Insulin Aspart (Novolog) 7 unit SUBCUT TIDMEALS [facility] Last Admin: 01/26/18 08:08 Dose: 7 units Insulin Detemir (Levemir) 13 unit SUBCUT DAILY [facility] Last Admin: 01/26/18 08:08 Dose: 13 units Lactobacillus Acidophilus/Rhamnosus (Multi-Lina Plus) 1 cap PO DAILY [facility] Liraglutide (Victoza) 1.8 mg SUBCUT DAILY [facility] Last Admin: 01/26/18 08:09 Dose: 1.8 mg Losartan Potassium (Cozaar) 25 mg PO DAILY [facility] Last Admin: 01/26/18 08:07 Dose: 25 mg Magnesium Hydroxide (Milk Of Magnesia) 30 ml PO DAILY PRN PRN Reason: Constipation Metformin HCl (Glucophage) 1,000 mg PO BIDMEALS [facility] Last Admin: 01/26/18 08:06 Dose: 1,000 mg Multivitamins/Minerals (Centrum) 1 tab PO DAILY [facility] Last Admin: 01/26/18 08:07 Dose: 1 tab Omeprazole (Omeprazole) 20 mg PO ACBREAKFAST [facility] Last Admin: 01/26/18 07:47 Dose: 20 mg Polyethylene Glycol (Miralax) 17 gm PO DAILY PRN PRN Reason: Constipation Potassium Chloride (Klor-Con 10) 10 meq PO BID [facility] Last Admin: 01/26/18 08:07 Dose: 10 meq Rosuvastatin Calcium (Crestor) 2.5 mg PO DAILY [facility] Last Admin: 01/26/18 08:15 Dose: 2.5 mg Sodium Chloride (Saline Flush) 10 ml FLUSH Q18H [facility] Last Admin: 01/26/18 08:40 Dose: 10 ml Sodium Chloride (Saline Flush) 10 ml IV Q18H [facility] Last Admin: 01/26/18 11:33 Dose: 10 ml Tramadol HCl (Ultram) 50 - 100 mg PO Q6H PRN PRN Reason: Pain Last Admin: 01/26/18 05:20 Dose: 50 mg Vancomycin HCl (Pharmacy To Dose - Vancomycin) 0 dose .XX ASDIRECTED [facility] Discontinued Medications Alteplase, Recombinant (Cathflo Activase) 2 mg IVPUSH ONETIME ONE Stop: 01/24/18 14:11 Last Admin: 01/24/18 14:18 Dose: 2 mg Diphenhydramine HCl (Benadryl) 25 mg PO Q12H [facility] Last Admin: 01/23/18 11:44 Dose: Not Given Diphenhydramine HCl (Benadryl) 25 mg PO 0730,1930 [facility] Last Admin: 01/25/18 13:59 Dose: 25 mg Vancomycin HCl 2 gm/ Sodium (Chloride) 540 mls @ 166 mls/hr IV Q12H [facility] Last Admin: 01/23/18 11:43 Dose: Not Given Sodium Chloride (Normal Saline) Confirm Administered Dose 100 mls @ as directed .ROUTE .[facility] ONE Stop: 01/22/18 19:26 Last Admin: 01/22/18 19:55 Dose: 25 mls/hr Vancomycin HCl 1.5 gm/ Sodium (Chloride) 250 mls @ 100 mls/hr IV Q12H [facility] Vancomycin HCl 1.5 gm/ Sodium (Chloride) 280 mls @ 112 mls/hr IV Q12H [facility] Last Admin: 01/25/18 07:52 Dose: Not Given Rosuvastatin Calcium (Crestor) 2.5 mg PO DAILY [facility] Last Admin: 01/24/18 08:31 Dose: 2.5 mg Sodium Chloride (Saline Flush) 10 ml FLUSH BID@0630,1830 [facility] Last Admin: 01/23/18 11:43 Dose: Not Given Sodium Chloride (Saline Flush) 10 ml FLUSH 0800,1030,2000,2230 [facility] Last Admin: 01/25/18 10:20 Dose: Not Given - Exam Physical Findings Comments:: GENERAL: Well-appearing obese adult male sitting in bedside chair in no acute distress. HEENT: Normocephalic, atraumatic. Conjunctiva clear. Nares patent without discharge. Mucous membranes moist. NECK: Supple, no masses. CV: Regular rate. 2+ pedal pulses. PULMONARY: Normal effort. ABDOMEN: Soft, nontender, nondistended. EXTREMITIES: LLE with amputation incision clean with sutures in place and minimal discharge from lateral aspect without warmth or significant edema. MUSCULOSKELETAL: Moves all extremities well. NEUROLOGICAL: No obvious deficits. DERMATOLOGIC: No rashes or suspicious lesions in exposed areas. PSYCHIATRIC: Alert, interactive, appropriate affect. - Problem List Review Problem List Initiated/Reviewed/Updated: Yes - My Orders Last 24 Hours: My Active Orders 01/25/18 13:30 diphenhydrAMINE [Benadryl] 25 mg PO Q18H 01/25/18 14:00 Sodium Chloride 0.9% [Saline Flush] 10 ml FLUSH Q18H Vancomycin 1.5 gm Sodium Chloride 0.9% [Normal Saline] 250 ml IV Q18H 01/25/18 16:30 Sodium Chloride 0.9% [Saline Flush] 10 ml IV Q18H 01/26/18 11:45 B.Bif/B.Long/L.Acidoph/L.Rhamn [Multi-Lina Plus] 1 cap PO DAILY 01/26/18 12:00 Enoxaparin [Lovenox] 40 mg SUBCUT Q24H 01/28/18 13:30 VANCOMYCIN TROUGH [CHEM] Routine 01/29/18 06:00 CBC WITH AUTO DIFF [HEME] Routine 02/05/18 06:00 CBC WITH AUTO DIFF [HEME] Routine - Plan Plan:: HPI Summary: 57yoM with long-standing diabetes mellitus admitted on 01/22/18 into swing bed status for PT, IV antibiotics, and wound care following left foot TMA on 01/18/[address] Barrow at [facility]. In fall 2016, he underwent L great toe amputation and long treatment course for osteomyelitis with daptomycin resulting in complete healing of his left foot wound. However the top of the left foot became red and he developed new drainage on the bottom of the foot from a "pus pocket". His sister opened the plantar lesion and he was later evaluated at Dr. Barrow with podiatry on 01/17/18 and noted full thickness ulceration with purulent drainage for with the culture grew MRSA. He was admitted and started on vancomycin and beta-lactam antibiotics. He underwent left foot TMA on 01/18/18. He had a PICC placed. He was seen by ID during stay and was given ongoing antibiotic orders. Primary problems: # Status post left foot transmetatarsal amputation (TMA) # MRSA cellulitis # Debility Wound improving. Continue betadine dressing changes as directed. Follow-up with Dr. Barrow as planned on 01/28/18. Continue vancomycin via PICC with careful monitoring of trough. Start probiotic. Continue Tylenol for pain. Continue PT. Given limited ambulation and high risk for DVT, start ppx with enoxaparin. Chronic medical conditions: # HTN: Losartan, HCTZ. # GERD: PPI. # DMT2 with diabetic polyneuropathy: Levemir, Novolog, metformin, Victoza. # HLD: Crestor. # Obesity with BMI 30.0-39.9: 1800 ADA calorie # Anxiety: Lexapro. Hospitalization issues: # Code status: FULL. # Emergency contact: Sister. # Disposition: Continue on swing bed status. Anticipate eventual discharge to home following improved mobility and following IV antibiotic therapy.
[2018-01-26] MEDS: B.Bifidum/B.Longum/L.Acidophilus/L.Rhamnosus (Probiotic) Cap PO SCH (12:18)
[2018-01-26] MEDS: Enoxaparin 40 MG/0.4 ML Syringe SUBCUT SCH (13:38)
[2018-01-27] MEDS: diphenhydrAMINE 25 MG Cap PO SCH ×2 (01:45→19:55)
[2018-01-27] MEDS: Sodium Chloride 0.9% 10 ML Syringe FLUSH SCH ×2 (02:14→20:51)
[2018-01-27] MEDS: Sodium Chloride 0.9% 10 ML Syringe IV SCH (05:15)
[2018-01-27] MEDS: Insulin Aspart 100 Units/ML 3 ML Pen SUBCUT SCH ×3 (08:00→17:48)
[2018-01-27] MEDS: Insulin Detemir 100 Units/ML 3 ML Pen SUBCUT SCH (08:00)
[2018-01-27] MEDS: Liraglutide (rDNA Origin) 0.6 MG/0.1 ML 3 ML Pen SUBCUT SCH (08:01)
[2018-01-27] MEDS: Losartan 25 MG Tab PO SCH (08:02)
[2018-01-27] MEDS: Calcium Citrate/Vitamin D3 315 MG-250 Unit Tab PO SCH ×2 (08:02→17:49)
[2018-01-27] MEDS: Omeprazole 20 MG Cap.CR PO SCH (08:02)
[2018-01-27] MEDS: Multivitamins with Minerals/Iron/Folic Acid/Lycopene Tab PO SCH (08:03)
[2018-01-27] MEDS: metFORMIN 500 MG Tab PO SCH ×2 (08:03→17:49)
[2018-01-27] MEDS: Aspirin 325 MG Tab.EC PO SCH (08:03)
[2018-01-27] MEDS: B.Bifidum/B.Longum/L.Acidophilus/L.Rhamnosus (Probiotic) Cap PO SCH (08:04)
[2018-01-27] MEDS: Acetaminophen 325 MG Tab PO SCH ×3 (08:04→20:57)
[2018-01-27] MEDS: Escitalopram 10 MG Tab PO SCH (08:04)
[2018-01-27] MEDS: Rosuvastatin 5 MG Tab PO SCH (08:04)
[2018-01-27] MEDS: Hydrochlorothiazide 25 MG Tab PO SCH (08:04)
[2018-01-27] MEDS: Potassium Chloride 10 MEQ Tab.ER PO SCH ×2 (08:04→20:58)
[2018-01-27] MEDS: Enoxaparin 40 MG/0.4 ML Syringe SUBCUT SCH (11:59)
[2018-01-27] MEDS: traMADol 50 MG Tab PO PRN (20:57)
[2018-01-28] MEDS: Sodium Chloride 0.9% 10 ML Syringe IV SCH ×2 (00:05→21:26)
[2018-01-28] MEDS: Omeprazole 20 MG Cap.CR PO SCH (07:39)
[2018-01-28] MEDS: Liraglutide (rDNA Origin) 0.6 MG/0.1 ML 3 ML Pen SUBCUT SCH (08:10)
[2018-01-28] MEDS: Escitalopram 10 MG Tab PO SCH (08:12)
[2018-01-28] MEDS: Acetaminophen 325 MG Tab PO SCH ×3 (08:12→20:43)
[2018-01-28] MEDS: Insulin Detemir 100 Units/ML 3 ML Pen SUBCUT SCH (08:13)
[2018-01-28] MEDS: Potassium Chloride 10 MEQ Tab.ER PO SCH ×2 (08:14→20:43)
[2018-01-28] MEDS: Aspirin 325 MG Tab.EC PO SCH (08:14)
[2018-01-28] MEDS: Insulin Aspart 100 Units/ML 3 ML Pen SUBCUT SCH ×3 (08:15→17:53)
[2018-01-28] MEDS: Rosuvastatin 5 MG Tab PO SCH (08:15)
[2018-01-28] MEDS: Multivitamins with Minerals/Iron/Folic Acid/Lycopene Tab PO SCH (08:15)
[2018-01-28] MEDS: metFORMIN 500 MG Tab PO SCH ×2 (08:16→17:52)
[2018-01-28] MEDS: Calcium Citrate/Vitamin D3 315 MG-250 Unit Tab PO SCH ×2 (08:16→17:53)
[2018-01-28] MEDS: Hydrochlorothiazide 25 MG Tab PO SCH (08:17)
[2018-01-28] MEDS: Losartan 25 MG Tab PO SCH (08:17)
[2018-01-28] MEDS: B.Bifidum/B.Longum/L.Acidophilus/L.Rhamnosus (Probiotic) Cap PO SCH (08:31)
[2018-01-28] MEDS: Enoxaparin 40 MG/0.4 ML Syringe SUBCUT SCH (17:10)
[2018-01-28] MEDS: diphenhydrAMINE 25 MG Cap PO SCH (17:52)
[2018-01-28] MEDS: Sodium Chloride 0.9% 10 ML Syringe FLUSH SCH (18:30)
[2018-01-29] MEDS: Omeprazole 20 MG Cap.CR PO SCH (08:05)
[2018-01-29] MEDS: Aspirin 325 MG Tab.EC PO SCH (08:05)
[2018-01-29] MEDS: Rosuvastatin 5 MG Tab PO SCH (08:05)
[2018-01-29] MEDS: Multivitamins with Minerals/Iron/Folic Acid/Lycopene Tab PO SCH (08:05)
[2018-01-29] MEDS: Calcium Citrate/Vitamin D3 315 MG-250 Unit Tab PO SCH ×2 (08:06→18:01)
[2018-01-29] MEDS: Losartan 25 MG Tab PO SCH (08:06)
[2018-01-29] MEDS: Hydrochlorothiazide 25 MG Tab PO SCH (08:06)
[2018-01-29] MEDS: metFORMIN 500 MG Tab PO SCH ×2 (08:07→18:01)
[2018-01-29] MEDS: Potassium Chloride 10 MEQ Tab.ER PO SCH ×2 (08:07→20:05)
[2018-01-29] MEDS: Escitalopram 10 MG Tab PO SCH (08:08)
[2018-01-29] MEDS: Acetaminophen 325 MG Tab PO SCH ×3 (08:08→20:06)
[2018-01-29] MEDS: Insulin Aspart 100 Units/ML 3 ML Pen SUBCUT SCH ×3 (08:09→18:01)
[2018-01-29] MEDS: Insulin Detemir 100 Units/ML 3 ML Pen SUBCUT SCH (08:10)
[2018-01-29] MEDS: Liraglutide (rDNA Origin) 0.6 MG/0.1 ML 3 ML Pen SUBCUT SCH (08:12)
[2018-01-29] MEDS: B.Bifidum/B.Longum/L.Acidophilus/L.Rhamnosus (Probiotic) Cap PO SCH (08:13)
[2018-01-29] MEDS: Sodium Chloride 0.9% 10 ML Syringe FLUSH SCH ×2 (08:48→11:28)
[2018-01-29] MEDS: diphenhydrAMINE 25 MG Cap PO SCH ×2 (08:48→11:00)
[2018-01-29] MEDS: Enoxaparin 40 MG/0.4 ML Syringe SUBCUT SCH (11:27)
[2018-01-29] MEDS: traMADol 50 MG Tab PO PRN (11:34)
[2018-01-29] MEDS: Nystatin Topical Powder 15 GM Bottle TOP SCH ×2 (11:53→20:05)
[2018-01-29] MEDS: Sodium Chloride 0.9% 10 ML Syringe IV SCH (14:09)
[2018-01-30] MEDS: diphenhydrAMINE 25 MG Cap PO SCH ×2 (05:27→23:30)
[2018-01-30] MEDS: Sodium Chloride 0.9% 10 ML Syringe FLUSH SCH ×2 (06:10→06:14)
[2018-01-30] MEDS ORDERED: Sodium Chloride 0.9% 50 ML ONE (07:32)
[2018-01-30] MEDS: Omeprazole 20 MG Cap.CR PO SCH (07:37)
[2018-01-30] MEDS: Sodium Chloride 0.9% 10 ML Syringe IV SCH (08:30)
[2018-01-30] MEDS: Calcium Citrate/Vitamin D3 315 MG-250 Unit Tab PO SCH ×2 (09:02→18:12)
[2018-01-30] MEDS: metFORMIN 500 MG Tab PO SCH ×2 (09:03→18:12)
[2018-01-30] MEDS: Insulin Aspart 100 Units/ML 3 ML Pen SUBCUT SCH ×3 (09:04→18:13)
[2018-01-30] MEDS: B.Bifidum/B.Longum/L.Acidophilus/L.Rhamnosus (Probiotic) Cap PO SCH (09:06)
[2018-01-30] MEDS: Potassium Chloride 10 MEQ Tab.ER PO SCH ×2 (09:07→20:34)
[2018-01-30] MEDS: Hydrochlorothiazide 25 MG Tab PO SCH (09:07)
[2018-01-30] MEDS: Escitalopram 10 MG Tab PO SCH (09:07)
[2018-01-30] MEDS: Losartan 25 MG Tab PO SCH (09:08)
[2018-01-30] MEDS: Multivitamins with Minerals/Iron/Folic Acid/Lycopene Tab PO SCH (09:08)
[2018-01-30] MEDS: Aspirin 325 MG Tab.EC PO SCH (09:09)
[2018-01-30] MEDS: Rosuvastatin 5 MG Tab PO SCH (09:09)
[2018-01-30] MEDS: Nystatin Topical Powder 15 GM Bottle TOP SCH ×2 (09:10→20:33)
[2018-01-30] MEDS: Acetaminophen 325 MG Tab PO SCH ×3 (09:11→20:34)
[2018-01-30] MEDS: Insulin Detemir 100 Units/ML 3 ML Pen SUBCUT SCH (09:13)
[2018-01-30] MEDS: Liraglutide (rDNA Origin) 0.6 MG/0.1 ML 3 ML Pen SUBCUT SCH (09:14)
[2018-01-30] MEDS: Enoxaparin 40 MG/0.4 ML Syringe SUBCUT SCH (12:50)
[2018-01-31] MEDS ORDERED: Sodium Chloride 0.9% 100 ML ONE (00:07)
[2018-01-31] MEDS: Sodium Chloride 0.9% 100 ML IV SCH ×2 (00:08→13:06)
[2018-01-31] MEDS: Sodium Chloride 0.9% 10 ML Syringe FLUSH SCH ×7 (00:10→22:27)
[2018-01-31] MEDS: Sodium Chloride 0.9% 10 ML Syringe IV SCH (03:43)
[2018-01-31] MEDS: Omeprazole 20 MG Cap.CR PO SCH (07:43)
[2018-01-31] MEDS: Insulin Aspart 100 Units/ML 3 ML Pen SUBCUT SCH ×3 (08:08→18:15)
[2018-01-31] MEDS: Calcium Citrate/Vitamin D3 315 MG-250 Unit Tab PO SCH ×2 (08:10→18:12)
[2018-01-31] MEDS: metFORMIN 500 MG Tab PO SCH ×2 (08:11→18:14)
[2018-01-31] MEDS: Rosuvastatin 5 MG Tab PO SCH (08:46)
[2018-01-31] MEDS: Losartan 25 MG Tab PO SCH (08:47)
[2018-01-31] MEDS: Hydrochlorothiazide 25 MG Tab PO SCH (08:47)
[2018-01-31] MEDS: Multivitamins with Minerals/Iron/Folic Acid/Lycopene Tab PO SCH (08:47)
[2018-01-31] MEDS: B.Bifidum/B.Longum/L.Acidophilus/L.Rhamnosus (Probiotic) Cap PO SCH (08:48)
[2018-01-31] MEDS: Potassium Chloride 10 MEQ Tab.ER PO SCH ×2 (08:48→20:00)
[2018-01-31] MEDS: Escitalopram 10 MG Tab PO SCH (08:49)
[2018-01-31] MEDS: Insulin Detemir 100 Units/ML 3 ML Pen SUBCUT SCH (08:49)
[2018-01-31] MEDS: Aspirin 325 MG Tab.EC PO SCH (08:50)
[2018-01-31] MEDS: Acetaminophen 325 MG Tab PO SCH ×3 (08:50→20:00)
[2018-01-31] MEDS: Liraglutide (rDNA Origin) 0.6 MG/0.1 ML 3 ML Pen SUBCUT SCH (08:51)
[2018-01-31] MEDS ORDERED: Sodium Chloride 0.9% 50 ML IV SCH (09:00)
[2018-01-31] MEDS ORDERED: Alteplase 2 MG Vial IVPUSH ONE (09:30)
[2018-01-31] MEDS: Nystatin Topical Powder 15 GM Bottle TOP SCH ×2 (12:38→20:01)
[2018-01-31] MEDS: Enoxaparin 40 MG/0.4 ML Syringe SUBCUT SCH (12:40)
[2018-01-31] MEDS ORDERED: Alteplase 2 MG Vial IV ONE (13:45)
[2018-01-31] MEDS ORDERED: Sodium Chloride 0.9% 10 ML Syringe FLUSH SCH (14:17)
[2018-01-31] MEDS: diphenhydrAMINE 25 MG Cap PO SCH (18:14)
[2018-01-31] MEDS ORDERED: Sodium Chloride 0.9% 0 ML ONE (19:14)
[2018-01-31] MEDS: traMADol 50 MG Tab PO PRN (21:51)
[2018-02-01] MEDS: Omeprazole 20 MG Cap.CR PO SCH (07:47)
[2018-02-01] MEDS: Insulin Aspart 100 Units/ML 3 ML Pen SUBCUT SCH ×3 (08:02→17:36)
[2018-02-01] MEDS: Calcium Citrate/Vitamin D3 315 MG-250 Unit Tab PO SCH ×2 (08:04→17:35)
[2018-02-01] MEDS: Insulin Detemir 100 Units/ML 3 ML Pen SUBCUT SCH (08:05)
[2018-02-01] MEDS: metFORMIN 500 MG Tab PO SCH ×2 (08:05→17:35)
[2018-02-01] MEDS: Multivitamins with Minerals/Iron/Folic Acid/Lycopene Tab PO SCH (08:08)
[2018-02-01] MEDS: Losartan 25 MG Tab PO SCH (08:08)
[2018-02-01] MEDS: Rosuvastatin 5 MG Tab PO SCH (08:09)
[2018-02-01] MEDS: Aspirin 325 MG Tab.EC PO SCH (08:10)
[2018-02-01] MEDS: Hydrochlorothiazide 25 MG Tab PO SCH (08:10)
[2018-02-01] MEDS: Potassium Chloride 10 MEQ Tab.ER PO SCH ×2 (08:11→20:22)
[2018-02-01] MEDS: B.Bifidum/B.Longum/L.Acidophilus/L.Rhamnosus (Probiotic) Cap PO SCH (08:11)
[2018-02-01] MEDS: Escitalopram 10 MG Tab PO SCH (08:11)
[2018-02-01] MEDS: Liraglutide (rDNA Origin) 0.6 MG/0.1 ML 3 ML Pen SUBCUT SCH ×2 (08:18→08:24)
[2018-02-01] MEDS: Acetaminophen 325 MG Tab PO SCH ×3 (08:20→21:17)
[2018-02-01] MEDS: Nystatin Topical Powder 15 GM Bottle TOP SCH ×2 (08:21→20:23)
--- NOTE | 2018-02-01 09:51 | PCM.PN ---
- General Info Date of Service: 02/01/18 Subjective Update: Mr. Huertas reports feeling well this morning. Saw Dr. Juarez, podiatry, on and has next appointment on 02/04/18. Tolerating diet without difficulty. Loose stools resolved. Voiding without difficulty. No new concerns. No nursing concerns. - Patient Data Vitals - Most Recent: Last Vital Signs Temp 36.6 C 02/01/18 06:18 Pulse 84 02/01/18 08:50 Resp 16 02/01/18 06:18 BP 132/75 02/01/18 06:18 Pulse Ox 96 02/01/18 08:50 Weight - Most Recent: 121.648 kg I&O - Last 24 Hours: Intake & Output 01/31/18 02/01/18 02/01/18 22:59 06:59 14:59 Intake Total 420 150 Output Total 1450 Balance 420 -1300 Lab Results Last 24 Hours: Laboratory Results - last 24 hr 01/31/18 01/31/18 01/31/18 Range/Units 12:07 17:30 17:35 Creatinine 1.09 (0.51-1.17) mg/dL Est Cr Clr Drug Dosing 84.50 mL/min Estimated GFR (MDRD) > 60 mL/min POC Glucose 175 H 150 H (74-106) mg/dl Vancomycin Trough 16.9 (10-20) ug/mL 01/31/18 01/31/18 02/01/18 Range/Units 18:10 20:57 07:59 Creatinine (0.51-1.17) mg/dL Est Cr Clr Drug Dosing mL/min Estimated GFR (MDRD) mL/min POC Glucose 140 H 131 H 139 H (74-106) mg/dl Vancomycin Trough (10-20) ug/mL Med Orders - Current: Current Medications Acetaminophen (Tylenol) 650 mg PO TID [facility] Last Admin: 02/01/18 08:20 Dose: 650 mg Aspirin (Ecotrin) 325 mg PO DAILY [facility] Last Admin: 02/01/18 08:10 Dose: 325 mg Calcium Citrate (Calcium Citrate + D) 2 tab PO BIDMEALS [facility] Last Admin: 02/01/18 08:04 Dose: 2 tab Diphenhydramine HCl (Benadryl) 25 mg PO Q18H [facility] Last Admin: 01/31/18 18:14 Dose: 25 mg Enoxaparin Sodium (Lovenox) 40 mg SUBCUT Q24H [facility] Last Admin: 01/31/18 12:40 Dose: 40 mg Escitalopram Oxalate (Lexapro) 10 mg PO DAILY [facility] Last Admin: 02/01/18 08:11 Dose: 10 mg Hydrochlorothiazide (Hydrochlorothiazide) 25 mg PO DAILY [facility] Last Admin: 02/01/18 08:10 Dose: 25 mg Vancomycin HCl 1.5 gm/ Sodium (Chloride) 280 mls @ 112 mls/hr IV Q18H [facility] Last Admin: 01/31/18 19:28 Dose: 112 mls/hr Sodium Chloride (Normal Saline) 100 mls @ 25 mls/hr IV DAILY [facility] Last Admin: 01/31/18 13:06 Dose: Not Given Insulin Aspart (Novolog) 7 unit SUBCUT TIDMEALS [facility] Last Admin: 02/01/18 08:02 Dose: 7 units Insulin Detemir (Levemir) 13 unit SUBCUT DAILY [facility] Last Admin: 02/01/18 08:05 Dose: 13 units Lactobacillus Acidophilus/Rhamnosus (Multi-Lina Plus) 1 cap PO DAILY [facility] Last Admin: 02/01/18 08:11 Dose: 1 cap Liraglutide (Victoza) 1.8 mg SUBCUT DAILY [facility] Last Admin: 02/01/18 08:24 Dose: 1.2 mg Losartan Potassium (Cozaar) 25 mg PO DAILY [facility] Last Admin: 02/01/18 08:08 Dose: 25 mg Magnesium Hydroxide (Milk Of Magnesia) 30 ml PO DAILY PRN PRN Reason: Constipation Metformin HCl (Glucophage) 1,000 mg PO BIDMEALS [facility] Last Admin: 02/01/18 08:05 Dose: 1,000 mg Multivitamins/Minerals (Centrum) 1 tab PO DAILY [facility] Last Admin: 02/01/18 08:08 Dose: 1 tab Nystatin (Nystop) 1 gm TOP BID [facility] Last Admin: 02/01/18 08:21 Dose: 1 applic Omeprazole (Omeprazole) 20 mg PO ACBREAKFAST [facility] Last Admin: 02/01/18 07:47 Dose: 20 mg Polyethylene Glycol (Miralax) 17 gm PO DAILY PRN PRN Reason: Constipation Potassium Chloride (Klor-Con 10) 10 meq PO BID [facility] Last Admin: 02/01/18 08:11 Dose: 10 meq Rosuvastatin Calcium (Crestor) 2.5 mg PO DAILY [facility] Last Admin: 02/01/18 08:09 Dose: 2.5 mg Sodium Chloride (Saline Flush) 10 ml FLUSH Q18H [facility] Last Admin: 01/31/18 22:25 Dose: 10 ml Sodium Chloride (Saline Flush) 10 ml FLUSH Q18H [facility] Last Admin: 01/31/18 22:27 Dose: Not Given Tramadol HCl (Ultram) 50 - 100 mg PO Q6H PRN PRN Reason: Pain Last Admin: 01/31/18 21:51 Dose: 50 mg Vancomycin HCl (Pharmacy To Dose - Vancomycin) 0 dose .XX ASDIRECTED [facility] Discontinued Medications Alteplase, Recombinant (Cathflo Activase) 2 mg IVPUSH ONETIME ONE Stop: 01/24/18 14:11 Last Admin: 01/24/18 14:18 Dose: 2 mg Alteplase, Recombinant (Cathflo Activase) 2 mg IVPUSH ONETIME ONE Stop: 01/31/18 09:31 Last Admin: 01/31/18 13:11 Dose: 2 mg Alteplase, Recombinant (Cathflo Activase) 2 mg IV ONETIME ONE Stop: 01/31/18 13:46 Last Admin: 01/31/18 13:11 Dose: 2 mg Diphenhydramine HCl (Benadryl) 25 mg PO Q12H [facility] Last Admin: 01/23/18 11:44 Dose: Not Given Diphenhydramine HCl (Benadryl) 25 mg PO 0730,1930 [facility] Last Admin: 01/25/18 13:59 Dose: 25 mg Diphenhydramine HCl (Benadryl) 25 mg PO Q18H [facility] Last Admin: 01/29/18 08:48 Dose: Not Given Vancomycin HCl 2 gm/ Sodium (Chloride) 540 mls @ 166 mls/hr IV Q12H [facility] Last Admin: 01/23/18 11:43 Dose: Not Given Sodium Chloride (Normal Saline) Confirm Administered Dose 100 mls @ as directed .ROUTE .[facility] ONE Stop: 01/22/18 19:26 Last Admin: 01/22/18 19:55 Dose: 25 mls/hr Vancomycin HCl 1.5 gm/ Sodium (Chloride) 250 mls @ 100 mls/hr IV Q12H [facility] Vancomycin HCl 1.5 gm/ Sodium (Chloride) 280 mls @ 112 mls/hr IV Q12H [facility] Last Admin: 01/25/18 07:52 Dose: Not Given Vancomycin HCl 1.5 gm/ Sodium (Chloride) 280 mls @ 112 mls/hr IV Q18H [facility] Last Admin: 01/28/18 18:35 Dose: Not Given Sodium Chloride (Normal Saline) 50 mls @ 25 mls/hr IV DAILY [facility] Sodium Chloride (Normal Saline) Confirm Administered Dose 50 mls @ as directed .ROUTE .[facility] ONE Stop: 01/30/18 07:33 Last Admin: 01/30/18 09:01 Dose: 30 mls/hr Sodium Chloride (Normal Saline) Confirm Administered Dose 100 mls @ as directed .ROUTE .[facility] ONE Stop: 01/31/18 00:08 Last Admin: 01/31/18 01:15 Dose: Not Given Sodium Chloride (Normal Saline) Confirm Administered Dose 50 mls @ as directed .ROUTE .[facility] ONE Stop: 01/31/18 19:15 Last Admin: 01/31/18 19:32 Dose: Not Given Rosuvastatin Calcium (Crestor) 2.5 mg PO DAILY [facility] Last Admin: 01/24/18 08:31 Dose: 2.5 mg Sodium Chloride (Saline Flush) 10 ml FLUSH BID@0630,1830 [facility] Last Admin: 01/23/18 11:43 Dose: Not Given Sodium Chloride (Saline Flush) 10 ml FLUSH 0800,1030,2000,2230 [facility] Last Admin: 01/25/18 10:20 Dose: Not Given Sodium Chloride (Saline Flush) 10 ml FLUSH Q18H [facility] Last Admin: 01/29/18 08:48 Dose: Not Given Sodium Chloride (Saline Flush) 10 ml IV Q18H [facility] Last Admin: 01/28/18 21:26 Dose: 10 ml Sodium Chloride (Saline Flush) 10 ml FLUSH Q18H [facility] Last Admin: 01/31/18 03:25 Dose: 10 ml Sodium Chloride (Saline Flush) 10 ml IV Q18H [facility] Last Admin: 01/31/18 03:43 Dose: Not Given Sodium Chloride (Saline Flush) 10 ml FLUSH Q18H [facility] Last Admin: 01/31/18 17:18 Dose: Not Given - Exam Physical Findings Comments:: GENERAL: Well-appearing obese adult male sitting in bedside chair in no acute distress. HEENT: Normocephalic, atraumatic. Conjunctiva clear. Nares patent without discharge. Mucous membranes moist. NECK: Supple, no masses. CV: Regular rate and rhythm, no murmur. 2+ pedal pulses. PULMONARY: Normal effort, clear to auscultation bilaterally. ABDOMEN: Soft, nontender, nondistended. EXTREMITIES: Distal LLE with dressing in place. MUSCULOSKELETAL: Moves all extremities well. NEUROLOGICAL: No obvious deficits. DERMATOLOGIC: No rashes or suspicious lesions in exposed areas. PSYCHIATRIC: Alert, interactive, appropriate affect. - Problem List Review Problem List Initiated/Reviewed/Updated: Yes - My Orders Last 24 Hours: My Active Orders 01/31/18 18:00 Sodium Chloride 0.9% [Saline Flush] 10 ml FLUSH Q18H 01/31/18 20:30 Sodium Chloride 0.9% [Saline Flush] 10 ml FLUSH Q18H 02/05/18 05:30 CREATININE W/GFR [CHEM] Routine VANCOMYCIN TROUGH [CHEM] Routine 02/05/18 06:00 CBC WITH AUTO DIFF [HEME] Routine - Plan Plan:: HPI Summary: 57yoM with long-standing diabetes mellitus admitted on 01/22/18 into swing bed status for PT, IV antibiotics, and wound care following left foot TMA on 01/18/[address] Barrow at [facility]. In fall 2016, he underwent L great toe amputation and long treatment course for osteomyelitis with daptomycin resulting in complete healing of his left foot wound. However the top of the left foot became red and he developed new drainage on the bottom of the foot from a "pus pocket". His sister opened the plantar lesion and he was later evaluated at Dr. Juarez with podiatry on 01/17/18 and noted full thickness ulceration with purulent drainage for with the culture grew MRSA. He was admitted and started on vancomycin and beta-lactam antibiotics. He underwent left foot TMA on 01/18/18. He had a PICC placed. He was seen by ID during stay and was given ongoing antibiotic orders. Primary problems: # Status post left foot transmetatarsal amputation (TMA) # MRSA cellulitis # Antibiotic associated diarrhea # Debility Wound improving. Tolerating IV antibiotic without difficulty and loose stools improved with probiotic. Progressing with PT. - Follow-up with Dr. Juarez as planned on 02/04/18 and 02/11/18 as well as ID on 02/13/18 - Continue dressing changes as directed - Continue vancomycin via PICC with careful monitoring of trough - Continue diphenhydramine with vancomycin infusions - Continue probiotic - Continue Tylenol and tramadol for pain - Continue PT - Continue enoxaparin for DVT ppx Chronic, stable medical conditions: # HTN: Losartan, HCTZ. # GERD: PPI. # DMT2 with diabetic polyneuropathy: Levemir, Novolog, metformin, Victoza. # HLD: Crestor and ASA. # Electrolyte and vitamin deficiencies: Continue KCl, Ca/D, and MV. # Obesity with BMI 30.0-39.9: 1800 ADA calorie diet # Anxiety: Lexapro. Hospitalization issues: # Code status: FULL. # Emergency contact: Sister. # Disposition: Continue on swing bed status. Anticipate eventual discharge to home following improved mobility and following IV antibiotic therapy.
[2018-02-01] MEDS: traMADol 50 MG Tab PO PRN ×2 (10:29→20:27)
[2018-02-01] MEDS: diphenhydrAMINE 25 MG Cap PO SCH (11:52)
[2018-02-01] MEDS: Sodium Chloride 0.9% 100 ML IV SCH (12:51)
[2018-02-01] MEDS: Sodium Chloride 0.9% 10 ML Syringe FLUSH SCH ×2 (12:52→15:48)
[2018-02-01] MEDS: Enoxaparin 40 MG/0.4 ML Syringe SUBCUT SCH (12:52)
[2018-02-02] MEDS: diphenhydrAMINE 25 MG Cap PO SCH ×2 (05:33→23:33)
[2018-02-02] MEDS: Sodium Chloride 0.9% 10 ML Syringe FLUSH SCH ×2 (05:34→09:21)
[2018-02-02] MEDS: Omeprazole 20 MG Cap.CR PO SCH (07:50)
[2018-02-02] MEDS: Calcium Citrate/Vitamin D3 315 MG-250 Unit Tab PO SCH ×2 (07:50→18:09)
[2018-02-02] MEDS: metFORMIN 500 MG Tab PO SCH ×2 (08:07→18:11)
[2018-02-02] MEDS: Insulin Aspart 100 Units/ML 3 ML Pen SUBCUT SCH ×3 (08:08→18:11)
[2018-02-02] MEDS: Losartan 25 MG Tab PO SCH (09:13)
[2018-02-02] MEDS: Potassium Chloride 10 MEQ Tab.ER PO SCH ×2 (09:13→21:03)
[2018-02-02] MEDS: B.Bifidum/B.Longum/L.Acidophilus/L.Rhamnosus (Probiotic) Cap PO SCH (09:13)
[2018-02-02] MEDS: Multivitamins with Minerals/Iron/Folic Acid/Lycopene Tab PO SCH (09:18)
[2018-02-02] MEDS: Aspirin 325 MG Tab.EC PO SCH (09:18)
[2018-02-02] MEDS: Hydrochlorothiazide 25 MG Tab PO SCH (09:19)
[2018-02-02] MEDS: Acetaminophen 325 MG Tab PO SCH ×3 (09:19→21:01)
[2018-02-02] MEDS: Escitalopram 10 MG Tab PO SCH (09:20)
[2018-02-02] MEDS: Nystatin Topical Powder 15 GM Bottle TOP SCH ×2 (09:20→21:00)
[2018-02-02] MEDS: Insulin Detemir 100 Units/ML 3 ML Pen SUBCUT SCH (09:24)
[2018-02-02] MEDS: Liraglutide (rDNA Origin) 0.6 MG/0.1 ML 3 ML Pen SUBCUT SCH (09:31)
[2018-02-02] MEDS: Sodium Chloride 0.9% 50 ML IV SCH (09:34)
[2018-02-02] MEDS: Rosuvastatin 5 MG Tab PO SCH (09:49)
[2018-02-02] MEDS: Enoxaparin 40 MG/0.4 ML Syringe SUBCUT SCH (11:59)
[2018-02-03] MEDS: Sodium Chloride 0.9% 10 ML Syringe FLUSH SCH ×4 (00:02→21:00)
[2018-02-03] MEDS: Sodium Chloride 0.9% 50 ML IV SCH ×2 (00:05→08:14)
[2018-02-03] MEDS: Omeprazole 20 MG Cap.CR PO SCH (07:32)
[2018-02-03] MEDS: Calcium Citrate/Vitamin D3 315 MG-250 Unit Tab PO SCH ×2 (08:02→18:01)
[2018-02-03] MEDS: Insulin Aspart 100 Units/ML 3 ML Pen SUBCUT SCH ×3 (08:02→17:59)
[2018-02-03] MEDS: metFORMIN 500 MG Tab PO SCH ×2 (08:02→17:58)
[2018-02-03] MEDS: Acetaminophen 325 MG Tab PO SCH ×3 (08:56→21:02)
[2018-02-03] MEDS: Hydrochlorothiazide 25 MG Tab PO SCH (08:56)
[2018-02-03] MEDS: Aspirin 325 MG Tab.EC PO SCH (08:56)
[2018-02-03] MEDS: Potassium Chloride 10 MEQ Tab.ER PO SCH ×2 (08:56→21:02)
[2018-02-03] MEDS: Multivitamins with Minerals/Iron/Folic Acid/Lycopene Tab PO SCH (08:56)
[2018-02-03] MEDS: Nystatin Topical Powder 15 GM Bottle TOP SCH ×2 (08:56→21:02)
[2018-02-03] MEDS: Rosuvastatin 5 MG Tab PO SCH (08:57)
[2018-02-03] MEDS: Escitalopram 10 MG Tab PO SCH (08:57)
[2018-02-03] MEDS: B.Bifidum/B.Longum/L.Acidophilus/L.Rhamnosus (Probiotic) Cap PO SCH (08:57)
[2018-02-03] MEDS: Losartan 25 MG Tab PO SCH (08:57)
[2018-02-03] MEDS: Liraglutide (rDNA Origin) 0.6 MG/0.1 ML 3 ML Pen SUBCUT SCH (09:00)
[2018-02-03] MEDS: Insulin Detemir 100 Units/ML 3 ML Pen SUBCUT SCH (09:00)
[2018-02-03] MEDS: Enoxaparin 40 MG/0.4 ML Syringe SUBCUT SCH (11:54)
[2018-02-03] MEDS: diphenhydrAMINE 25 MG Cap PO SCH (17:27)
[2018-02-04] MEDS: Omeprazole 20 MG Cap.CR PO SCH (07:11)
[2018-02-04] MEDS: Insulin Aspart 100 Units/ML 3 ML Pen SUBCUT SCH ×3 (08:01→18:28)
[2018-02-04] MEDS: Multivitamins with Minerals/Iron/Folic Acid/Lycopene Tab PO SCH (08:02)
[2018-02-04] MEDS: B.Bifidum/B.Longum/L.Acidophilus/L.Rhamnosus (Probiotic) Cap PO SCH (08:02)
[2018-02-04] MEDS: Calcium Citrate/Vitamin D3 315 MG-250 Unit Tab PO SCH ×2 (08:02→18:27)
[2018-02-04] MEDS: Aspirin 325 MG Tab.EC PO SCH (08:02)
[2018-02-04] MEDS: metFORMIN 500 MG Tab PO SCH ×2 (08:02→18:27)
[2018-02-04] MEDS: Acetaminophen 325 MG Tab PO SCH ×3 (08:03→21:18)
[2018-02-04] MEDS: Rosuvastatin 5 MG Tab PO SCH (08:03)
[2018-02-04] MEDS: Nystatin Topical Powder 15 GM Bottle TOP SCH ×2 (08:03→22:03)
[2018-02-04] MEDS: Hydrochlorothiazide 25 MG Tab PO SCH (08:03)
[2018-02-04] MEDS: Potassium Chloride 10 MEQ Tab.ER PO SCH ×2 (08:03→21:18)
[2018-02-04] MEDS: Escitalopram 10 MG Tab PO SCH (08:03)
[2018-02-04] MEDS: Sodium Chloride 0.9% 50 ML IV SCH ×2 (08:04→18:58)
[2018-02-04] MEDS: Liraglutide (rDNA Origin) 0.6 MG/0.1 ML 3 ML Pen SUBCUT SCH (08:33)
[2018-02-04] MEDS: Insulin Detemir 100 Units/ML 3 ML Pen SUBCUT SCH (08:34)
[2018-02-04] MEDS: Losartan 25 MG Tab PO SCH (08:35)
[2018-02-04] MEDS: Enoxaparin 40 MG/0.4 ML Syringe SUBCUT SCH ×2 (08:46→12:36)
[2018-02-04] MEDS: diphenhydrAMINE 25 MG Cap PO SCH (18:27)
[2018-02-04] MEDS: Sodium Chloride 0.9% 10 ML Syringe FLUSH SCH ×3 (18:55→21:53)
[2018-02-04] MEDS: traMADol 50 MG Tab PO PRN (21:20)
[2018-02-05] MEDS: Omeprazole 20 MG Cap.CR PO SCH (07:41)
[2018-02-05] MEDS: diphenhydrAMINE 25 MG Cap PO SCH ×2 (07:41→23:44)
[2018-02-05] MEDS: Sodium Chloride 0.9% 10 ML Syringe FLUSH SCH ×2 (08:04→13:35)
[2018-02-05] MEDS: Insulin Aspart 100 Units/ML 3 ML Pen SUBCUT SCH ×3 (08:11→18:03)
[2018-02-05] MEDS: Insulin Detemir 100 Units/ML 3 ML Pen SUBCUT SCH (08:12)
[2018-02-05] MEDS: Liraglutide (rDNA Origin) 0.6 MG/0.1 ML 3 ML Pen SUBCUT SCH (08:13)
[2018-02-05] MEDS: metFORMIN 500 MG Tab PO SCH ×2 (08:18→18:03)
[2018-02-05] MEDS: Calcium Citrate/Vitamin D3 315 MG-250 Unit Tab PO SCH ×2 (08:18→18:02)
[2018-02-05] MEDS: Aspirin 325 MG Tab.EC PO SCH (08:19)
[2018-02-05] MEDS: Hydrochlorothiazide 25 MG Tab PO SCH (08:19)
[2018-02-05] MEDS: Rosuvastatin 5 MG Tab PO SCH (08:19)
[2018-02-05] MEDS: Losartan 25 MG Tab PO SCH (08:19)
[2018-02-05] MEDS: Potassium Chloride 10 MEQ Tab.ER PO SCH ×2 (08:21→21:22)
[2018-02-05] MEDS: Escitalopram 10 MG Tab PO SCH (08:21)
[2018-02-05] MEDS: B.Bifidum/B.Longum/L.Acidophilus/L.Rhamnosus (Probiotic) Cap PO SCH (08:21)
[2018-02-05] MEDS: Multivitamins with Minerals/Iron/Folic Acid/Lycopene Tab PO SCH (08:21)
[2018-02-05] MEDS: Acetaminophen 325 MG Tab PO SCH ×3 (08:24→21:23)
[2018-02-05] MEDS: traMADol 50 MG Tab PO PRN (09:10)
--- NOTE | 2018-02-05 09:52 | PCM.PN ---
- General Info Date of Service: 02/05/18 Functional Status: Reports: Pain Controlled, Tolerating Diet, Ambulating, Urinating, Incentive Spirometry. Denies: New Symptoms - Review of Systems General: Denies: Fever, Weakness, Fatigue, Malaise, Chills HEENT: Reports: No Symptoms Pulmonary: Reports: No Symptoms Cardiovascular: Reports: No Symptoms Gastrointestinal: Reports: No Symptoms Genitourinary: Reports: No Symptoms Musculoskeletal: Denies: Foot Pain Skin: Reports: No Symptoms Neurological: Reports: Difficulty Walking, Gait Disturbance. Denies: Numbness, Trouble Speaking Psychiatric: Reports: No Symptoms - Patient Data Vitals - Most Recent: Last Vital Signs Temp 97.9 F 02/05/18 06:27 Pulse 88 02/05/18 06:27 Resp 18 02/05/18 06:27 BP 129/68 02/05/18 06:27 Pulse Ox 96 02/05/18 06:27 Weight - Most Recent: 263 lb 9 oz I&O - Last 24 Hours: Intake & Output 02/04/18 02/05/18 02/05/18 22:59 06:59 14:59 Intake Total 805 100 Output Total 875 1400 Balance -70 -1300 Lab Results Last 24 Hours: Laboratory Results - last 24 hr 02/04/18 02/04/18 02/05/18 Range/Units 18:26 21:12 07:15 WBC (5.0-10.0) 10^3/uL RBC (4.50-6.00) 10^6/uL Hgb (13.0-17.0) g/dL Hct (40.0-52.0) % MCV (82.0-92.0) fL MCH (27.0-31.0) pg MCHC (32.0-36.0) g/dL RDW (11.5-14.5) % Plt Count (150-300) 10^3/uL MPV (7.4-10.4) fL Neut % (Auto) (50.0-70.0) % Lymph % (Auto) (20.0-40.0) % [place] % (Auto) (2.0-8.0) % Eos % (Auto) (1.0-3.0) % Baso % (Auto) (0.0-1.0) % Neut # (Auto) (2.5-7.0) 10^3/uL Lymph # (Auto) (1.0-4.0) 10^3/uL [place] # (Auto) (0.1-0.8) 10^3/uL Eos # (Auto) (0.1-0.3) 10^3/uL Baso # (Auto) (0.0-0.1) 10^3/uL POC Glucose 151 H 137 H 117 H (74-106) mg/dl 02/05/18 Range/Units 07:30 WBC 8.4 (5.0-10.0) 10^3/uL RBC 3.42 L (4.50-6.00) 10^6/uL Hgb 10.4 L (13.0-17.0) g/dL Hct 32.0 L (40.0-52.0) % MCV 93.6 H (82.0-92.0) fL MCH 30.4 (27.0-31.0) pg MCHC 32.5 (32.0-36.0) g/dL RDW 12.7 (11.5-14.5) % Plt Count 524 H (150-300) 10^3/uL MPV 8.0 (7.4-10.4) fL Neut % (Auto) 64.5 (50.0-70.0) % Lymph % (Auto) 22.6 (20.0-40.0) % [place] % (Auto) 6.9 (2.0-8.0) % Eos % (Auto) 5.4 H (1.0-3.0) % Baso % (Auto) 0.6 (0.0-1.0) % Neut # (Auto) 5.3 (2.5-7.0) 10^3/uL Lymph # (Auto) 1.9 (1.0-4.0) 10^3/uL [place] # (Auto) 0.6 (0.1-0.8) 10^3/uL Eos # (Auto) 0.5 H (0.1-0.3) 10^3/uL Baso # (Auto) 0.1 (0.0-0.1) 10^3/uL POC Glucose (74-106) mg/dl Med Orders - Current: Current Medications Acetaminophen (Tylenol) 650 mg PO TID [facility] Last Admin: 02/05/18 08:24 Dose: 650 mg Aspirin (Ecotrin) 325 mg PO DAILY [facility] Last Admin: 02/05/18 08:19 Dose: 325 mg Calcium Citrate (Calcium Citrate + D) 2 tab PO BIDMEALS [facility] Last Admin: 02/05/18 08:18 Dose: 2 tab Diphenhydramine HCl (Benadryl) 25 mg PO Q18H [facility] Last Admin: 02/05/18 07:41 Dose: 25 mg Enoxaparin Sodium (Lovenox) 40 mg SUBCUT Q24H [facility] Last Admin: 02/04/18 12:36 Dose: Not Given Escitalopram Oxalate (Lexapro) 10 mg PO DAILY [facility] Last Admin: 02/05/18 08:21 Dose: 10 mg Hydrochlorothiazide (Hydrochlorothiazide) 25 mg PO DAILY [facility] Last Admin: 02/05/18 08:19 Dose: 25 mg Vancomycin HCl 1.5 gm/ Sodium (Chloride) 280 mls @ 112 mls/hr IV Q18H [facility] Last Admin: 02/05/18 08:05 Dose: 112 mls/hr Sodium Chloride (Normal Saline) 50 mls @ 12.5 mls/hr IV DAILY [facility] Last Admin: 02/04/18 18:58 Dose: 12.5 mls/hr Insulin Aspart (Novolog) 7 unit SUBCUT TIDMEALS [facility] Last Admin: 02/05/18 08:11 Dose: 7 units Insulin Detemir (Levemir) 13 unit SUBCUT DAILY [facility] Last Admin: 02/05/18 08:12 Dose: 13 units Lactobacillus Acidophilus/Rhamnosus (Multi-Lina Plus) 1 cap PO DAILY [facility] Last Admin: 02/05/18 08:21 Dose: 1 cap Liraglutide (Victoza) 1.8 mg SUBCUT DAILY [facility] Last Admin: 02/05/18 08:13 Dose: 1.8 mg Losartan Potassium (Cozaar) 25 mg PO DAILY [facility] Last Admin: 02/05/18 08:19 Dose: 25 mg Magnesium Hydroxide (Milk Of Magnesia) 30 ml PO DAILY PRN PRN Reason: Constipation Metformin HCl (Glucophage) 1,000 mg PO BIDMEALS [facility] Last Admin: 02/05/18 08:18 Dose: 1,000 mg Multivitamins/Minerals (Centrum) 1 tab PO DAILY [facility] Last Admin: 02/05/18 08:21 Dose: 1 tab Nystatin (Nystop) 1 gm TOP BID [facility] Last Admin: 02/04/18 22:03 Dose: 1 applic Omeprazole (Omeprazole) 20 mg PO ACBREAKFAST [facility] Last Admin: 02/05/18 07:41 Dose: 20 mg Polyethylene Glycol (Miralax) 17 gm PO DAILY PRN PRN Reason: Constipation Potassium Chloride (Klor-Con 10) 10 meq PO BID [facility] Last Admin: 02/05/18 08:21 Dose: 10 meq Rosuvastatin Calcium (Crestor) 2.5 mg PO DAILY [facility] Last Admin: 02/05/18 08:19 Dose: 2.5 mg Sodium Chloride (Saline Flush) 10 ml FLUSH Q18H [facility] Last Admin: 02/05/18 08:04 Dose: 10 ml Sodium Chloride (Saline Flush) 10 ml FLUSH Q18H [facility] Last Admin: 02/04/18 21:53 Dose: 10 ml Tramadol HCl (Ultram) 50 - 100 mg PO Q6H PRN PRN Reason: Pain Last Admin: 02/05/18 09:10 Dose: 50 mg Vancomycin HCl (Pharmacy To Dose - Vancomycin) 0 dose .XX ASDIRECTED [facility] Discontinued Medications Alteplase, Recombinant (Cathflo Activase) 2 mg IVPUSH ONETIME ONE Stop: 01/24/18 14:11 Last Admin: 01/24/18 14:18 Dose: 2 mg Alteplase, Recombinant (Cathflo Activase) 2 mg IVPUSH ONETIME ONE Stop: 01/31/18 09:31 Last Admin: 01/31/18 13:11 Dose: 2 mg Alteplase, Recombinant (Cathflo Activase) 2 mg IV ONETIME ONE Stop: 01/31/18 13:46 Last Admin: 01/31/18 13:11 Dose: 2 mg Diphenhydramine HCl (Benadryl) 25 mg PO Q12H [facility] Last Admin: 01/23/18 11:44 Dose: Not Given Diphenhydramine HCl (Benadryl) 25 mg PO 0730,1930 [facility] Last Admin: 01/25/18 13:59 Dose: 25 mg Diphenhydramine HCl (Benadryl) 25 mg PO Q18H [facility] Last Admin: 01/29/18 08:48 Dose: Not Given Vancomycin HCl 2 gm/ Sodium (Chloride) 540 mls @ 166 mls/hr IV Q12H [facility] Last Admin: 01/23/18 11:43 Dose: Not Given Sodium Chloride (Normal Saline) Confirm Administered Dose 100 mls @ as directed .ROUTE .[facility] ONE Stop: 01/22/18 19:26 Last Admin: 01/22/18 19:55 Dose: 25 mls/hr Vancomycin HCl 1.5 gm/ Sodium (Chloride) 250 mls @ 100 mls/hr IV Q12H [facility] Vancomycin HCl 1.5 gm/ Sodium (Chloride) 280 mls @ 112 mls/hr IV Q12H [facility] Last Admin: 01/25/18 07:52 Dose: Not Given Vancomycin HCl 1.5 gm/ Sodium (Chloride) 280 mls @ 112 mls/hr IV Q18H [facility] Last Admin: 01/28/18 18:35 Dose: Not Given Sodium Chloride (Normal Saline) 50 mls @ 25 mls/hr IV DAILY [facility] Sodium Chloride (Normal Saline) Confirm Administered Dose 50 mls @ as directed .ROUTE .[facility] ONE Stop: 01/30/18 07:33 Last Admin: 01/30/18 09:01 Dose: 30 mls/hr Sodium Chloride (Normal Saline) 100 mls @ 25 mls/hr IV DAILY [facility] Last Admin: 02/01/18 12:51 Dose: 25 mls/hr Sodium Chloride (Normal Saline) Confirm Administered Dose 100 mls @ as directed .ROUTE .[facility] ONE Stop: 01/31/18 00:08 Last Admin: 01/31/18 01:15 Dose: Not Given Sodium Chloride (Normal Saline) Confirm Administered Dose 50 mls @ as directed .ROUTE .[facility] ONE Stop: 01/31/18 19:15 Last Admin: 01/31/18 19:32 Dose: Not Given Rosuvastatin Calcium (Crestor) 2.5 mg PO DAILY [facility] Last Admin: 01/24/18 08:31 Dose: 2.5 mg Sodium Chloride (Saline Flush) 10 ml FLUSH BID@0630,1830 [facility] Last Admin: 01/23/18 11:43 Dose: Not Given Sodium Chloride (Saline Flush) 10 ml FLUSH 0800,1030,2000,2230 [facility] Last Admin: 01/25/18 10:20 Dose: Not Given Sodium Chloride (Saline Flush) 10 ml FLUSH Q18H [facility] Last Admin: 01/29/18 08:48 Dose: Not Given Sodium Chloride (Saline Flush) 10 ml IV Q18H [facility] Last Admin: 01/28/18 21:26 Dose: 10 ml Sodium Chloride (Saline Flush) 10 ml FLUSH Q18H [facility] Last Admin: 01/31/18 03:25 Dose: 10 ml Sodium Chloride (Saline Flush) 10 ml IV Q18H [facility] Last Admin: 01/31/18 03:43 Dose: Not Given Sodium Chloride (Saline Flush) 10 ml FLUSH Q18H [facility] Last Admin: 01/31/18 17:18 Dose: Not Given - Exam Quality Assessment: No: Supplemental Oxygen General: Alert, Oriented Neck: Supple Lungs: Clear to Auscultation, Normal Respiratory Effort Cardiovascular: Regular Rate, Regular Rhythm GI/Abdominal Exam: Soft (Male) Exam: Deferred Extremities: No Pedal Edema Skin: Warm, Dry, Other (Dry dressing left foot) Neurological: Normal Speech. No: Normal Gait (Weightbearing as tolerated now sutures are removed) Psy/Mental Status: Alert, Normal Affect, Normal Mood - Problem List Review Problem List Initiated/Reviewed/Updated: Yes - Plan Plan:: HPI Summary: 57yoM with long-standing diabetes mellitus admitted on 01/22/18 into swing bed status for PT, IV antibiotics, and wound care following left foot TMA on 01/18/[address] Barrow at [facility]. In fall 2016, he underwent L great toe amputation and long treatment course for osteomyelitis with daptomycin resulting in complete healing of his left foot wound. However the top of the left foot became red and he developed new drainage on the bottom of the foot from a "pus pocket". His sister opened the plantar lesion and he was later evaluated at Dr. Juarez with podiatry on 01/17/18 and noted full thickness ulceration with purulent drainage for with the culture grew MRSA. He was admitted and started on vancomycin and beta-lactam antibiotics. He underwent left foot TMA on 01/18/18. He had a PICC placed. He was seen by ID during stay and was given ongoing antibiotic orders. Primary problems: # Status post left foot transmetatarsal amputation (TMA) # MRSA cellulitis # Debility Sutures removed, wound clean dry and intact. Tolerating IV antibiotic without difficulty--premedicated with diphenhydramine HCl. Progressing with PT. - Was seen by Dr. Barrow February 04 sutures removed, return visit 02/11/18 as well as ID on 02/13/18 - Continue dressing changes as directed - Continue vancomycin via PICC with careful monitoring of trough - Continue diphenhydramine with vancomycin infusions - Continue probiotic - Continue Tylenol and tramadol for pain - Continue PT - Continue enoxaparin for DVT ppx Chronic, stable medical conditions: # HTN: Losartan, HCTZ. # GERD: PPI. # DMT2 with diabetic polyneuropathy: Levemir, Novolog, metformin, Victoza. # HLD: Crestor and ASA. # Electrolyte and vitamin deficiencies: Continue KCl, Ca/D, and MV. # Obesity with BMI 30.0-39.9: 1800 ADA calorie diet # Anxiety: Lexapro. Hospitalization issues: # Code status: FULL. # Emergency contact: Sister. # Disposition: Continue on swing bed status. Anticipate eventual discharge to home following improved mobility and following IV antibiotic therapy.
[2018-02-05] MEDS: Nystatin Topical Powder 15 GM Bottle TOP SCH ×2 (12:06→21:23)
[2018-02-05] MEDS: Enoxaparin 40 MG/0.4 ML Syringe SUBCUT SCH (12:07)
[2018-02-05] MEDS: Sodium Chloride 0.9% 50 ML IV SCH (13:32)
[2018-02-06] MEDS: Sodium Chloride 0.9% 10 ML Syringe FLUSH SCH ×4 (00:24→22:18)
[2018-02-06] MEDS: Sodium Chloride 0.9% 50 ML IV SCH ×2 (00:32→19:28)
[2018-02-06] MEDS: Omeprazole 20 MG Cap.CR PO SCH (07:17)
[2018-02-06] MEDS: Insulin Aspart 100 Units/ML 3 ML Pen SUBCUT SCH ×3 (08:04→18:09)
[2018-02-06] MEDS: metFORMIN 500 MG Tab PO SCH ×2 (08:08→18:11)
[2018-02-06] MEDS: Calcium Citrate/Vitamin D3 315 MG-250 Unit Tab PO SCH ×2 (08:08→18:11)
[2018-02-06] MEDS: Multivitamins with Minerals/Iron/Folic Acid/Lycopene Tab PO SCH (08:26)
[2018-02-06] MEDS: Potassium Chloride 10 MEQ Tab.ER PO SCH ×2 (08:26→21:31)
[2018-02-06] MEDS: Hydrochlorothiazide 25 MG Tab PO SCH (08:26)
[2018-02-06] MEDS: Aspirin 325 MG Tab.EC PO SCH (08:27)
[2018-02-06] MEDS: Losartan 25 MG Tab PO SCH (08:27)
[2018-02-06] MEDS: Escitalopram 10 MG Tab PO SCH (08:27)
[2018-02-06] MEDS: B.Bifidum/B.Longum/L.Acidophilus/L.Rhamnosus (Probiotic) Cap PO SCH (08:27)
[2018-02-06] MEDS: Rosuvastatin 5 MG Tab PO SCH (08:28)
[2018-02-06] MEDS: Insulin Detemir 100 Units/ML 3 ML Pen SUBCUT SCH (08:31)
[2018-02-06] MEDS: Liraglutide (rDNA Origin) 0.6 MG/0.1 ML 3 ML Pen SUBCUT SCH (08:33)
[2018-02-06] MEDS: Acetaminophen 325 MG Tab PO SCH ×3 (08:36→21:31)
[2018-02-06] MEDS: traMADol 50 MG Tab PO PRN (08:43)
[2018-02-06] MEDS: Nystatin Topical Powder 15 GM Bottle TOP SCH ×2 (14:49→22:07)
[2018-02-06] MEDS: Enoxaparin 40 MG/0.4 ML Syringe SUBCUT SCH (14:49)
[2018-02-06] MEDS: diphenhydrAMINE 25 MG Cap PO SCH (18:09)
[2018-02-07] MEDS: Omeprazole 20 MG Cap.CR PO SCH (07:51)
[2018-02-07] MEDS: Insulin Aspart 100 Units/ML 3 ML Pen SUBCUT SCH ×3 (08:07→18:11)
[2018-02-07] MEDS: metFORMIN 500 MG Tab PO SCH ×2 (08:09→18:11)
[2018-02-07] MEDS: Hydrochlorothiazide 25 MG Tab PO SCH (08:10)
[2018-02-07] MEDS: Calcium Citrate/Vitamin D3 315 MG-250 Unit Tab PO SCH ×2 (08:10→18:11)
[2018-02-07] MEDS: Rosuvastatin 5 MG Tab PO SCH (08:11)
[2018-02-07] MEDS: B.Bifidum/B.Longum/L.Acidophilus/L.Rhamnosus (Probiotic) Cap PO SCH (08:11)
[2018-02-07] MEDS: Escitalopram 10 MG Tab PO SCH (08:12)
[2018-02-07] MEDS: Aspirin 325 MG Tab.EC PO SCH (08:12)
[2018-02-07] MEDS: Multivitamins with Minerals/Iron/Folic Acid/Lycopene Tab PO SCH (08:12)
[2018-02-07] MEDS: Acetaminophen 325 MG Tab PO SCH ×3 (08:13→21:26)
[2018-02-07] MEDS: Losartan 25 MG Tab PO SCH (08:13)
[2018-02-07] MEDS: Liraglutide (rDNA Origin) 0.6 MG/0.1 ML 3 ML Pen SUBCUT SCH (08:25)
[2018-02-07] MEDS: Insulin Detemir 100 Units/ML 3 ML Pen SUBCUT SCH (08:27)
[2018-02-07] MEDS: Potassium Chloride 10 MEQ Tab.ER PO SCH ×2 (11:50→21:26)
[2018-02-07] MEDS: diphenhydrAMINE 25 MG Cap PO SCH (11:50)
[2018-02-07] MEDS: Nystatin Topical Powder 15 GM Bottle TOP SCH ×2 (11:50→21:26)
[2018-02-07] MEDS: Enoxaparin 40 MG/0.4 ML Syringe SUBCUT SCH (11:51)
[2018-02-07] MEDS: Sodium Chloride 0.9% 50 ML IV SCH (12:29)
[2018-02-07] MEDS: Sodium Chloride 0.9% 10 ML Syringe FLUSH SCH ×2 (12:30→15:10)
[2018-02-08] MEDS: Sodium Chloride 0.9% 10 ML Syringe FLUSH SCH ×2 (05:34→08:56)
[2018-02-08] MEDS: diphenhydrAMINE 25 MG Cap PO SCH (05:34)
[2018-02-08] MEDS: Sodium Chloride 0.9% 50 ML IV SCH ×2 (05:39→10:13)
[2018-02-08] MEDS: Calcium Citrate/Vitamin D3 315 MG-250 Unit Tab PO SCH ×2 (07:59→17:21)
[2018-02-08] MEDS: metFORMIN 500 MG Tab PO SCH ×2 (07:59→17:20)
[2018-02-08] MEDS: Omeprazole 20 MG Cap.CR PO SCH (08:00)
[2018-02-08] MEDS: Insulin Aspart 100 Units/ML 3 ML Pen SUBCUT SCH ×3 (08:00→17:57)
[2018-02-08] MEDS: Multivitamins with Minerals/Iron/Folic Acid/Lycopene Tab PO SCH (08:01)
[2018-02-08] MEDS: Losartan 25 MG Tab PO SCH (08:02)
[2018-02-08] MEDS: Aspirin 325 MG Tab.EC PO SCH (08:03)
[2018-02-08] MEDS: Hydrochlorothiazide 25 MG Tab PO SCH (08:03)
[2018-02-08] MEDS: Rosuvastatin 5 MG Tab PO SCH (08:03)
[2018-02-08] MEDS: Escitalopram 10 MG Tab PO SCH (08:04)
[2018-02-08] MEDS: Potassium Chloride 10 MEQ Tab.ER PO SCH ×2 (08:04→21:42)
[2018-02-08] MEDS: Insulin Detemir 100 Units/ML 3 ML Pen SUBCUT SCH (08:05)
[2018-02-08] MEDS: B.Bifidum/B.Longum/L.Acidophilus/L.Rhamnosus (Probiotic) Cap PO SCH (08:05)
[2018-02-08] MEDS: Liraglutide (rDNA Origin) 0.6 MG/0.1 ML 3 ML Pen SUBCUT SCH (08:06)
[2018-02-08] MEDS: Nystatin Topical Powder 15 GM Bottle TOP SCH ×2 (08:06→21:41)
[2018-02-08] MEDS: Acetaminophen 325 MG Tab PO SCH ×3 (08:09→21:43)
[2018-02-08] MEDS: traMADol 50 MG Tab PO PRN (11:31)
[2018-02-08] MEDS: Enoxaparin 40 MG/0.4 ML Syringe SUBCUT SCH (11:32)
[2018-02-09] MEDS: diphenhydrAMINE 25 MG Cap PO SCH ×2 (00:22→17:19)
[2018-02-09] MEDS: Sodium Chloride 0.9% 10 ML Syringe FLUSH SCH ×4 (01:04→20:45)
[2018-02-09] MEDS: Insulin Aspart 100 Units/ML 3 ML Pen SUBCUT SCH ×3 (07:52→17:57)
[2018-02-09] MEDS: Omeprazole 20 MG Cap.CR PO SCH (07:52)
[2018-02-09] MEDS: metFORMIN 500 MG Tab PO SCH ×2 (07:52→17:57)
[2018-02-09] MEDS: Calcium Citrate/Vitamin D3 315 MG-250 Unit Tab PO SCH ×2 (07:54→17:57)
[2018-02-09] MEDS: Escitalopram 10 MG Tab PO SCH (08:22)
[2018-02-09] MEDS: B.Bifidum/B.Longum/L.Acidophilus/L.Rhamnosus (Probiotic) Cap PO SCH (08:22)
[2018-02-09] MEDS: Sodium Chloride 0.9% 50 ML IV SCH ×2 (08:22→17:56)
[2018-02-09] MEDS: Hydrochlorothiazide 25 MG Tab PO SCH (08:22)
[2018-02-09] MEDS: Aspirin 325 MG Tab.EC PO SCH (08:22)
[2018-02-09] MEDS: Acetaminophen 325 MG Tab PO SCH ×3 (08:22→21:47)
[2018-02-09] MEDS: Rosuvastatin 5 MG Tab PO SCH (08:22)
[2018-02-09] MEDS: Potassium Chloride 10 MEQ Tab.ER PO SCH ×2 (08:22→21:48)
[2018-02-09] MEDS: Losartan 25 MG Tab PO SCH (08:22)
[2018-02-09] MEDS: Multivitamins with Minerals/Iron/Folic Acid/Lycopene Tab PO SCH (08:22)
[2018-02-09] MEDS: Insulin Detemir 100 Units/ML 3 ML Pen SUBCUT SCH (08:23)
[2018-02-09] MEDS: Nystatin Topical Powder 15 GM Bottle TOP SCH ×2 (08:23→21:46)
[2018-02-09] MEDS: Liraglutide (rDNA Origin) 0.6 MG/0.1 ML 3 ML Pen SUBCUT SCH (08:24)
[2018-02-09] MEDS: Enoxaparin 40 MG/0.4 ML Syringe SUBCUT SCH (12:10)
[2018-02-10] MEDS: Omeprazole 20 MG Cap.CR PO SCH (07:31)
[2018-02-10] MEDS: metFORMIN 500 MG Tab PO SCH ×2 (08:00→17:59)
[2018-02-10] MEDS: Calcium Citrate/Vitamin D3 315 MG-250 Unit Tab PO SCH ×2 (08:00→17:59)
[2018-02-10] MEDS: Insulin Aspart 100 Units/ML 3 ML Pen SUBCUT SCH ×3 (08:00→17:59)
[2018-02-10] MEDS: Multivitamins with Minerals/Iron/Folic Acid/Lycopene Tab PO SCH (08:37)
[2018-02-10] MEDS: Aspirin 325 MG Tab.EC PO SCH (08:37)
[2018-02-10] MEDS: Losartan 25 MG Tab PO SCH (08:37)
[2018-02-10] MEDS: Hydrochlorothiazide 25 MG Tab PO SCH (08:37)
[2018-02-10] MEDS: Acetaminophen 325 MG Tab PO SCH ×3 (08:38→20:41)
[2018-02-10] MEDS: B.Bifidum/B.Longum/L.Acidophilus/L.Rhamnosus (Probiotic) Cap PO SCH (08:38)
[2018-02-10] MEDS: Nystatin Topical Powder 15 GM Bottle TOP SCH ×2 (08:38→20:39)
[2018-02-10] MEDS: Rosuvastatin 5 MG Tab PO SCH (08:38)
[2018-02-10] MEDS: Potassium Chloride 10 MEQ Tab.ER PO SCH ×2 (08:38→20:40)
[2018-02-10] MEDS: Escitalopram 10 MG Tab PO SCH (08:38)
[2018-02-10] MEDS: Sodium Chloride 0.9% 50 ML IV SCH (08:38)
[2018-02-10] MEDS: Insulin Detemir 100 Units/ML 3 ML Pen SUBCUT SCH (08:40)
[2018-02-10] MEDS: Liraglutide (rDNA Origin) 0.6 MG/0.1 ML 3 ML Pen SUBCUT SCH (08:41)
--- NOTE | 2018-02-10 10:38 | PCM.HP ---
H&P History of Present Illness - General Date of Service: 02/10/18 Admit Problem/Dx: Admission Diagnosis/Problem Admission Diagnosis/Problem Amputation of toe Source of Information: Patient, RN Left Foot Pain Score (Numeric/FACES): 0 - Related Data Allergies/Adverse Reactions: Allergies Allergy/AdvReac Type Severity Reaction Status Date / Time vancomycin Allergy Intermediate Rash Verified 01/22/18 20:46 Sulfa (Sulfonamide Allergy Shortness Verified 01/22/18 20:46 Antibiotics) of Breath Home Medications: Home Meds Acetaminophen [Tylenol] 650 mg PO TID 02/27/17 [History] Aspirin [Ecotrin] 325 mg PO DAILY 02/27/17 [History] Calcium Carbonate/Vitamin D3 [Calcium 600 + Vit D 400 Softgl] 1 tab PO BIDMEALS 02/27/17 [History] Omeprazole 20 mg PO ACBREAKFAST 02/27/17 [History] Polyethylene Glycol 3350 [MiraLAX] 17 gm PO DAILY PRN 02/27/17 [History] Liraglutide [Victoza] 1.8 mg SUBCUT DAILY 03/14/17 [History] metFORMIN [Glucophage] 1,000 mg PO BIDMEALS 03/14/17 [History] Escitalopram [Lexapro] 10 mg PO DAILY 05/11/17 [History] Losartan Potassium 25 mg PO DAILY 08/29/17 [History] Insulin Glarg,Human.Rec.Analog [LantUS Solostar] 22 units SQ DAILY 09/10/17 [ History] diphenhydrAMINE [Benadryl] 25 mg PO Q12H 09/10/17 [History] Hydrochlorothiazide 25 mg PO DAILY 01/22/18 [History] Insulin Aspart [NovoLOG] 7 unit SQ TIDMEALS 01/22/18 [History] Magnesium Hydroxide [Milk of Magnesia] 30 ml PO DAILY PRN 01/22/18 [History] Multivitamin with Minerals [Multivitamins with Minerals] 1 each PO DAILY [History] Potassium Chloride 10 meq PO BID 01/22/18 [History] Rosuvastatin [Crestor] 2.5 mg PO DAILY 01/22/18 [History] Vancomycin/0.9 % Sod Chloride [Vanco 2 Gram/500 ml-0.9% NaCl] 2 gm IV Q12H 01/22 [History] traMADol [Ultram] 50 - 100 mg PO Q6H PRN 01/22/18 [History] Past Medical History HEENT History: Reports: Impaired Vision Cardiovascular History: Reports: High Cholesterol, Hypertension Respiratory History: Reports: None Gastrointestinal History: Reports: GERD Genitourinary History: Reports: Chronic Renal Insuffiency Musculoskeletal History: Reports: Amputation Other Musculoskeletal History: 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 Neurological History: Reports: Neuropathy, Diabetic Psychiatric History: Reports: Anxiety, Depression, Panic Attack Endocrine/Metabolic History: Reports: Diabetes, Type II, IDDM, Obesity/BMI 30+ Dermatologic History: Reports: Cellulitis - Infectious Disease History Infectious Disease History: Reports: MRSA - Past Surgical History HEENT Surgical History: Reports: None Cardiovascular Surgical History: Reports: None Respiratory Surgical History: Reports: None GI Surgical History: Reports: Appendectomy, Cholecystectomy, Colonoscopy Male Surgical History: Reports: None Endocrine Surgical History: Reports: None Neurological Surgical History: Reports: None Musculoskeletal Surgical History: Reports: Amputation, Arthroscopic Knee Dermatological Surgical History: Reports: None Social & Family History - Family History Family Medical History: Noncontributory HEENT: Reports: None Cardiac: Reports: None Respiratory: Reports: None GI: Reports: None : Reports: None OBGYN: Reports: None Musculoskeletal: Reports: None Neurological: Reports: None Psychiatric: Reports: None Endocrine/Metabolic: Reports: Diabetes, type II Hematologic: Reports: None Immunologic: Reports: None Dermatologic: Reports: None Oncologic: Reports: Prostate - Tobacco Use Smoking Status *Q: Never Smoker Second Hand Smoke Exposure: No - Caffeine Use Caffeine Use: Reports: Soda - Recreational Drug Use Recreational Drug Use: No H&P Review of Systems - Review of Systems: Review Of Systems: See Below General: Reports: No Symptoms HEENT: Reports: No Symptoms Pulmonary: Reports: No Symptoms Cardiovascular: Reports: No Symptoms Gastrointestinal: Reports: No Symptoms Genitourinary: Reports: No Symptoms Musculoskeletal: Reports: Foot Pain Skin: Reports: Wound (Wound left foot) Psychiatric: Reports: No Symptoms Neurological: Reports: No Symptoms Exam - Exam Exam: See Below - Vital Signs Vital Signs: Last Vital Signs Temp 98.7 F 02/10/18 06:29 Pulse 73 02/10/18 06:29 Resp 12 02/10/18 06:29 BP 131/66 02/10/18 08:37 Pulse Ox 94 L 02/10/18 06:29 Weight: 263 lb 9 oz - Exam General: Alert, Oriented, 4 HEENT: Mucosa Moist & [place] Extremities: No Pedal Edema Skin: Wound (Wound clean year left foot without signs of infection, partially self closing), Incision Neuro Extensive - Mental Status: Alert, Oriented x3, Normal Mood/Affect, Normal Cognition - Patient Data Lab Results Last 24 hrs: Laboratory Results - last 24 hr 02/09/18 02/09/18 02/09/18 Range/Units 11:53 17:43 21:46 POC Glucose 129 H 202 H 86 (74-106) mg/dl 02/10/18 Range/Units 06:13 POC Glucose 126 H (74-106) mg/dl Result Diagrams: 02/05/18 07:30 02/06/18 18:00 Problem List Initiated/Reviewed/Updated: Yes Orders Last 24hrs: Active Orders 24 hr Category Date Time Status CREATININE W/GFR [CHEM] Routine Lab 02/12/18 17:30 Ordered VANCOMYCIN TROUGH [CHEM] Routine Lab 02/12/18 17:30 Ordered Medication Orders Acetaminophen (Tylenol) 650 mg PO TID [facility] Last Admin: 02/10/18 08:38 Dose: 650 mg Admin: 02/09/18 21:47 Dose: 650 mg Admin: 02/09/18 14:15 Dose: 650 mg Admin: 02/09/18 08:22 Dose: 650 mg Admin: 02/08/18 21:43 Dose: 650 mg Admin: 02/08/18 13:19 Dose: 650 mg Admin: 02/08/18 08:09 Dose: 650 mg Admin: 02/07/18 21:26 Dose: 650 mg Admin: 02/07/18 15:10 Dose: 650 mg Admin: 02/07/18 08:13 Dose: 650 mg Admin: 02/06/18 21:31 Dose: 650 mg Admin: 02/06/18 14:39 Dose: 650 mg Admin: 02/06/18 08:36 Dose: 650 mg Admin: 02/05/18 21:23 Dose: 650 mg Admin: 02/05/18 15:31 Dose: 650 mg Admin: 02/05/18 08:24 Dose: 650 mg Admin: 02/04/18 21:18 Dose: 650 mg Admin: 02/04/18 15:01 Dose: Admin: 02/04/18 08:03 Dose: 650 mg Admin: 02/03/18 21:02 Dose: 650 mg Admin: 02/03/18 13:56 Dose: 650 mg Admin: 02/03/18 08:56 Dose: 650 mg Admin: 02/02/18 21:01 Dose: 650 mg Admin: 02/02/18 13:50 Dose: 650 mg Admin: 02/02/18 09:19 Dose: 650 mg Admin: 02/01/18 21:17 Dose: 650 mg Admin: 02/01/18 15:11 Dose: 650 mg Admin: 02/01/18 08:20 Dose: 650 mg Admin: 01/31/18 20:00 Dose: 650 mg Admin: 01/31/18 13:53 Dose: 650 mg Admin: 01/31/18 08:50 Dose: 650 mg Admin: 01/30/18 20:34 Dose: 650 mg Admin: 01/30/18 15:00 Dose: 650 mg Admin: 01/30/18 09:11 Dose: 650 mg Admin: 01/29/18 20:06 Dose: 650 mg Admin: 01/29/18 14:08 Dose: 650 mg Admin: 01/29/18 08:08 Dose: 650 mg Admin: 01/28/18 20:43 Dose: 650 mg Admin: 01/28/18 17:10 Dose: Not Given Admin: 01/28/18 08:12 Dose: 650 mg Admin: 01/27/18 20:57 Dose: 650 mg Admin: 01/27/18 14:21 Dose: 650 mg Admin: 01/27/18 08:04 Dose: 650 mg Admin: 01/26/18 20:43 Dose: 650 mg Admin: 01/26/18 14:41 Dose: 650 mg Admin: 01/26/18 08:07 Dose: 650 mg Admin: 01/25/18 20:47 Dose: 650 mg Admin: 01/25/18 13:59 Dose: 650 mg Admin: 01/25/18 08:38 Dose: 650 mg Admin: 01/24/18 21:10 Dose: 650 mg Admin: 01/24/18 14:19 Dose: 650 mg Admin: 01/24/18 08:33 Dose: 650 mg Admin: 01/23/18 20:18 Dose: 650 mg Admin: 01/23/18 13:25 Dose: 650 mg Admin: 01/23/18 09:19 Dose: 650 mg Admin: 01/22/18 21:23 Dose: 650 mg Aspirin (Ecotrin) 325 mg PO DAILY [facility] Last Admin: 02/10/18 08:37 Dose: 325 mg Admin: 02/09/18 08:22 Dose: 325 mg Admin: 02/08/18 08:03 Dose: 325 mg Admin: 02/07/18 08:12 Dose: 325 mg Admin: 02/06/18 08:27 Dose: 325 mg Admin: 02/05/18 08:19 Dose: 325 mg Admin: 02/04/18 08:02 Dose: 325 mg Admin: 02/03/18 08:56 Dose: 325 mg Admin: 02/02/18 09:18 Dose: 325 mg Admin: 02/01/18 08:10 Dose: 325 mg Admin: 01/31/18 08:50 Dose: 325 mg Admin: 01/30/18 09:09 Dose: 325 mg Admin: 01/29/18 08:05 Dose: 325 mg Admin: 01/28/18 08:14 Dose: 325 mg Admin: 01/27/18 08:03 Dose: 325 mg Admin: 01/26/18 08:07 Dose: 325 mg Admin: 01/25/18 08:37 Dose: 325 mg Admin: 01/24/18 08:29 Dose: 325 mg Admin: 01/23/18 09:15 Dose: 325 mg Calcium Citrate (Calcium Citrate + D) 2 tab PO BIDMEALS [facility] Last Admin: 02/10/18 08:00 Dose: 2 tab Admin: 02/09/18 17:57 Dose: 2 tab Admin: 02/09/18 07:54 Dose: 2 tab Admin: 02/08/18 17:21 Dose: 2 tab Admin: 02/08/18 07:59 Dose: 2 tab Admin: 02/07/18 18:11 Dose: 2 tab Admin: 02/07/18 08:10 Dose: 2 tab Admin: 02/06/18 18:11 Dose: 2 tab Admin: 02/06/18 08:08 Dose: 2 tab Admin: 02/05/18 18:02 Dose: 2 tab Admin: 02/05/18 08:18 Dose: 2 tab Admin: 02/04/18 18:27 Dose: 2 tab Admin: 02/04/18 08:02 Dose: 2 tab Admin: 02/03/18 18:01 Dose: 2 tab Admin: 02/03/18 08:02 Dose: 2 tab Admin: 02/02/18 18:09 Dose: 2 tab Admin: 02/02/18 07:50 Dose: 2 tab Admin: 02/01/18 17:35 Dose: 2 tab Admin: 02/01/18 08:04 Dose: 2 tab Admin: 01/31/18 18:12 Dose: 2 tab Admin: 01/31/18 08:10 Dose: 2 tab Admin: 01/30/18 18:12 Dose: 2 tab Admin: 01/30/18 09:02 Dose: 2 tab Admin: 01/29/18 18:01 Dose: 2 tab Admin: 01/29/18 08:06 Dose: 2 tab Admin: 01/28/18 17:53 Dose: 2 tab Admin: 01/28/18 08:16 Dose: 2 tab Admin: 01/27/18 17:49 Dose: 2 tab Admin: 01/27/18 08:02 Dose: 2 tab Admin: 01/26/18 17:57 Dose: 2 tab Admin: 01/26/18 08:07 Dose: 2 tab Admin: 01/25/18 18:18 Dose: 2 tab Admin: 01/25/18 08:33 Dose: 2 tab Admin: 01/24/18 18:03 Dose: 2 tab Admin: 01/24/18 08:27 Dose: 2 tab Admin: 01/23/18 17:45 Dose: 2 tab Admin: 01/23/18 09:10 Dose: 2 tab Admin: 01/22/18 18:07 Dose: 2 tab Diphenhydramine HCl (Benadryl) 25 mg PO Q18H [facility] Last Admin: 02/09/18 17:19 Dose: 25 mg Admin: 02/09/18 00:22 Dose: 25 mg Admin: 02/08/18 05:34 Dose: 25 mg Admin: 02/07/18 11:50 Dose: 25 mg Admin: 02/06/18 18:09 Dose: 25 mg Admin: 02/05/18 23:44 Dose: 25 mg Admin: 02/05/18 07:41 Dose: 25 mg Admin: 02/04/18 18:27 Dose: 25 mg Admin: 02/03/18 17:27 Dose: 25 mg Admin: 02/02/18 23:33 Dose: 25 mg Admin: 02/02/18 05:33 Dose: 25 mg Admin: 02/01/18 11:52 Dose: 25 mg Admin: 01/31/18 18:14 Dose: 25 mg Admin: 01/30/18 23:30 Dose: 25 mg Admin: 01/30/18 05:27 Dose: 25 mg Admin: 01/29/18 11:00 Dose: 25 mg Enoxaparin Sodium (Lovenox) 40 mg SUBCUT Q24H [facility] Last Admin: 02/09/18 12:10 Dose: 40 mg Admin: 02/08/18 11:32 Dose: 40 mg Admin: 02/07/18 11:51 Dose: 40 mg Admin: 02/06/18 14:49 Dose: 40 mg Admin: 02/05/18 12:07 Dose: 40 mg Admin: 02/04/18 12:36 Dose: Not Given Admin: 02/04/18 08:46 Dose: 40 mg Admin: 02/03/18 11:54 Dose: 40 mg Admin: 02/02/18 11:59 Dose: 40 mg Admin: 02/01/18 12:52 Dose: 40 mg Admin: 01/31/18 12:40 Dose: 40 mg Admin: 01/30/18 12:50 Dose: 40 mg Admin: 01/29/18 11:27 Dose: 40 mg Admin: 01/28/18 17:10 Dose: 40 mg Admin: 01/27/18 11:59 Dose: 40 mg Admin: 01/26/18 13:38 Dose: 40 mg Escitalopram Oxalate (Lexapro) 10 mg PO DAILY [facility] Last Admin: 02/10/18 08:38 Dose: 10 mg Admin: 02/09/18 08:22 Dose: 10 mg Admin: 02/08/18 08:04 Dose: 10 mg Admin: 02/07/18 08:12 Dose: 10 mg Admin: 02/06/18 08:27 Dose: 10 mg Admin: 02/05/18 08:21 Dose: 10 mg Admin: 02/04/18 08:03 Dose: 10 mg Admin: 02/03/18 08:57 Dose: 10 mg Admin: 02/02/18 09:20 Dose: 10 mg Admin: 02/01/18 08:11 Dose: 10 mg Admin: 01/31/18 08:49 Dose: 10 mg Admin: 01/30/18 09:07 Dose: 10 mg Admin: 01/29/18 08:08 Dose: 10 mg Admin: 01/28/18 08:12 Dose: 10 mg Admin: 01/27/18 08:04 Dose: 10 mg Admin: 01/26/18 08:07 Dose: 10 mg Admin: 01/25/18 08:38 Dose: 10 mg Admin: 01/24/18 08:29 Dose: 10 mg Admin: 01/23/18 09:19 Dose: 10 mg Hydrochlorothiazide (Hydrochlorothiazide) 25 mg PO DAILY [facility] Last Admin: 02/10/18 08:37 Dose: 25 mg Admin: 02/09/18 08:22 Dose: 25 mg Admin: 02/08/18 08:03 Dose: 25 mg Admin: 02/07/18 08:10 Dose: 25 mg Admin: 02/06/18 08:26 Dose: 25 mg Admin: 02/05/18 08:19 Dose: 25 mg Admin: 02/04/18 08:03 Dose: 25 mg Admin: 02/03/18 08:56 Dose: 25 mg Admin: 02/02/18 09:19 Dose: 25 mg Admin: 02/01/18 08:10 Dose: 25 mg Admin: 01/31/18 08:47 Dose: 25 mg Admin: 01/30/18 09:07 Dose: 25 mg Admin: 01/29/18 08:06 Dose: 25 mg Admin: 01/28/18 08:17 Dose: 25 mg Admin: 01/27/18 08:04 Dose: 25 mg Admin: 01/26/18 08:07 Dose: 25 mg Admin: 01/25/18 08:37 Dose: 25 mg Admin: 01/24/18 08:33 Dose: 25 mg Admin: 01/23/18 09:15 Dose: 25 mg Vancomycin HCl 1.5 gm/ Sodium (Chloride) 280 mls @ 112 mls/hr IV Q18H [facility] Last Admin: 02/09/18 17:56 Dose: 112 mls/hr Admin: 02/09/18 01:05 Dose: 112 mls/hr Admin: 02/08/18 06:03 Dose: 112 mls/hr Admin: 02/07/18 12:29 Dose: 112 mls/hr Admin: 02/06/18 19:18 Dose: 112 mls/hr Admin: 02/06/18 00:31 Dose: 112 mls/hr Admin: 02/05/18 08:05 Dose: 112 mls/hr Admin: 02/04/18 18:58 Dose: 112 mls/hr Admin: 02/03/18 18:09 Dose: 112 mls/hr Admin: 02/03/18 00:05 Dose: 112 mls/hr Admin: 02/02/18 06:00 Dose: 112 mls/hr Admin: 02/01/18 12:51 Dose: 112 mls/hr Admin: 01/31/18 19:28 Dose: 112 mls/hr Admin: 01/31/18 00:02 Dose: 112 mls/hr Admin: 01/30/18 06:14 Dose: 112 mls/hr Admin: 01/29/18 11:31 Dose: 112 mls/hr Admin: 01/28/18 18:33 Dose: 112 mls/hr Sodium Chloride (Normal Saline) 50 mls @ 12.5 mls/hr IV DAILY [facility] Last Admin: 02/10/18 08:38 Dose: Not Given Admin: 02/09/18 17:56 Dose: 12.5 mls/hr Admin: 02/09/18 08:22 Dose: Not Given Admin: 02/08/18 10:13 Dose: 12.5 mls/hr Admin: 02/08/18 05:39 Dose: 12.5 mls/hr Admin: 02/07/18 12:29 Dose: 12.5 mls/hr Admin: 02/06/18 19:28 Dose: 12.5 mls/hr Admin: 02/06/18 00:32 Dose: 12.5 mls/hr Admin: 02/05/18 13:32 Dose: Not Given Admin: 02/04/18 18:58 Dose: 12.5 mls/hr Admin: 02/04/18 08:04 Dose: Not Given Admin: 02/03/18 08:14 Dose: Not Given Admin: 02/03/18 00:05 Dose: 12.5 mls/hr Admin: 02/02/18 09:34 Dose: 12.5 mls/hr Insulin Aspart (Novolog) 7 unit SUBCUT TIDMEALS [facility] Last Admin: 02/10/18 08:00 Dose: 7 units Admin: 02/09/18 17:57 Dose: 7 units Admin: 02/09/18 12:08 Dose: 7 units Admin: 02/09/18 07:52 Dose: 7 units Admin: 02/08/18 17:57 Dose: 7 units Admin: 02/08/18 11:33 Dose: 7 units Admin: 02/08/18 08:00 Dose: 7 units Admin: 02/07/18 18:11 Dose: 7 units Admin: 02/07/18 11:53 Dose: 7 units Admin: 02/07/18 08:07 Dose: 7 units Admin: 02/06/18 18:09 Dose: 7 units Admin: 02/06/18 14:50 Dose: Admin: 02/06/18 08:04 Dose: 7 units Admin: 02/05/18 18:03 Dose: 7 units Admin: 02/05/18 12:05 Dose: 7 units Admin: 02/05/18 08:11 Dose: 7 units Admin: 02/04/18 18:28 Dose: 7 units Admin: 02/04/18 12:38 Dose: Admin: 02/04/18 08:01 Dose: 7 units Admin: 02/03/18 17:59 Dose: 7 units Admin: 02/03/18 11:54 Dose: 7 units Admin: 02/03/18 08:02 Dose: 7 units Admin: 02/02/18 18:11 Dose: 7 units Admin: 02/02/18 11:54 Dose: 7 units Admin: 02/02/18 08:08 Dose: 7 units Admin: 02/01/18 17:36 Dose: 7 units Admin: 02/01/18 12:06 Dose: 97 units Admin: 02/01/18 08:02 Dose: 7 units Admin: 01/31/18 18:15 Dose: 7 units Admin: 01/31/18 12:39 Dose: 7 units Admin: 01/31/18 08:08 Dose: 7 units Admin: 01/30/18 18:13 Dose: 7 units Admin: 01/30/18 12:50 Dose: 7 units Admin: 01/30/18 09:04 Dose: 7 units Admin: 01/29/18 18:01 Dose: 7 units Admin: 01/29/18 11:54 Dose: 7 units Admin: 01/29/18 08:09 Dose: 7 units Admin: 01/28/18 17:53 Dose: 7 units Admin: 01/28/18 17:10 Dose: Admin: 01/28/18 08:15 Dose: 7 units Admin: 01/27/18 17:48 Dose: 7 units Admin: 01/27/18 11:59 Dose: 7 units Admin: 01/27/18 08:00 Dose: 7 units Admin: 01/26/18 17:57 Dose: 7 units Admin: 01/26/18 12:17 Dose: 7 units Admin: 01/26/18 08:08 Dose: 7 units Admin: 01/25/18 18:15 Dose: 7 units Admin: 01/25/18 12:21 Dose: 7 units Admin: 01/25/18 08:26 Dose: 7 units Admin: 01/24/18 18:01 Dose: 7 units Admin: 01/24/18 12:02 Dose: 7 units Admin: 01/24/18 08:23 Dose: 7 units Admin: 01/23/18 17:43 Dose: 7 units Admin: 01/23/18 11:50 Dose: 7 units Admin: 01/23/18 09:11 Dose: 7 units Admin: 01/22/18 18:12 Dose: 7 units Insulin Detemir (Levemir) 13 unit SUBCUT DAILY [facility] Last Admin: 02/10/18 08:40 Dose: 13 units Admin: 02/09/18 08:23 Dose: 13 units Admin: 02/08/18 08:05 Dose: 13 units Admin: 02/07/18 08:27 Dose: 13 units Admin: 02/06/18 08:31 Dose: 13 units Admin: 02/05/18 08:12 Dose: 13 units Admin: 02/04/18 08:34 Dose: 13 units Admin: 02/03/18 09:00 Dose: 13 units Admin: 02/02/18 09:24 Dose: 13 units Admin: 02/01/18 08:05 Dose: 13 units Admin: 01/31/18 08:49 Dose: 13 units Admin: 01/30/18 09:13 Dose: 13 units Admin: 01/29/18 08:10 Dose: 13 units Admin: 01/28/18 08:13 Dose: 13 units Admin: 01/27/18 08:00 Dose: 13 units Admin: 01/26/18 08:08 Dose: 13 units Admin: 01/25/18 08:28 Dose: 13 units Admin: 01/24/18 08:21 Dose: 13 units Admin: 01/23/18 09:22 Dose: 13 units Lactobacillus Acidophilus/Rhamnosus (Multi-Lina Plus) 1 cap PO DAILY [facility] Last Admin: 02/10/18 08:38 Dose: 1 cap Admin: 02/09/18 08:22 Dose: 1 cap Admin: 02/08/18 08:05 Dose: 1 cap Admin: 02/07/18 08:11 Dose: 1 cap Admin: 02/06/18 08:27 Dose: 1 cap Admin: 02/05/18 08:21 Dose: 1 cap Admin: 02/04/18 08:02 Dose: 1 cap Admin: 02/03/18 08:57 Dose: 1 cap Admin: 02/02/18 09:13 Dose: 1 cap Admin: 02/01/18 08:11 Dose: 1 cap Admin: 01/31/18 08:48 Dose: 1 cap Admin: 01/30/18 09:06 Dose: 1 cap Admin: 01/29/18 08:13 Dose: 1 cap Admin: 01/28/18 08:31 Dose: 1 cap Admin: 01/27/18 08:04 Dose: 1 cap Admin: 01/26/18 12:18 Dose: 1 cap Liraglutide (Victoza) 1.8 mg SUBCUT DAILY [facility] Last Admin: 02/10/18 08:41 Dose: 1.8 mg Admin: 02/09/18 08:24 Dose: 1.8 mg Admin: 02/08/18 08:06 Dose: 1.8 mg Admin: 02/07/18 08:25 Dose: 1.8 mg Admin: 02/06/18 08:33 Dose: 1.8 mg Admin: 02/05/18 08:13 Dose: 1.8 mg Admin: 02/04/18 08:33 Dose: 1.8 mg Admin: 02/03/18 09:00 Dose: 1.8 mg Admin: 02/02/18 09:31 Dose: 1.8 mg Admin: 02/01/18 08:24 Dose: 1.2 mg Admin: 02/01/18 08:18 Dose: 0.6 mg Admin: 01/31/18 08:51 Dose: 1.8 mg Admin: 01/30/18 09:14 Dose: 1.8 mg Admin: 01/29/18 08:12 Dose: 1.8 mg Admin: 01/28/18 08:10 Dose: 1.8 mg Admin: 01/27/18 08:01 Dose: 1.8 mg Admin: 01/26/18 08:09 Dose: 1.8 mg Admin: 01/25/18 08:30 Dose: 1.8 mg Admin: 01/24/18 08:24 Dose: 1.8 mg Admin: 01/23/18 09:16 Dose: 1.8 mg Losartan Potassium (Cozaar) 25 mg PO DAILY [facility] Last Admin: 02/10/18 08:37 Dose: 25 mg Admin: 02/09/18 08:22 Dose: 25 mg Admin: 02/08/18 08:02 Dose: 25 mg Admin: 02/07/18 08:13 Dose: 25 mg Admin: 02/06/18 08:27 Dose: 25 mg Admin: 02/05/18 08:19 Dose: 25 mg Admin: 02/04/18 08:35 Dose: 25 mg Admin: 02/03/18 08:57 Dose: 25 mg Admin: 02/02/18 09:13 Dose: 25 mg Admin: 02/01/18 08:08 Dose: 25 mg Admin: 01/31/18 08:47 Dose: 25 mg Admin: 01/30/18 09:08 Dose: 25 mg Admin: 01/29/18 08:06 Dose: 25 mg Admin: 01/28/18 08:17 Dose: 25 mg Admin: 01/27/18 08:02 Dose: 25 mg Admin: 01/26/18 08:07 Dose: 25 mg Admin: 01/25/18 08:35 Dose: 25 mg Admin: 01/24/18 08:31 Dose: 25 mg Admin: 01/23/18 09:15 Dose: 25 mg Magnesium Hydroxide (Milk Of Magnesia) 30 ml PO DAILY PRN PRN Reason: Constipation Metformin HCl (Glucophage) 1,000 mg PO BIDMEALS [facility] Last Admin: 02/10/18 08:00 Dose: 1,000 mg Admin: 02/09/18 17:57 Dose: 1,000 mg Admin: 02/09/18 07:52 Dose: 1,000 mg Admin: 02/08/18 17:20 Dose: 1,000 mg Admin: 02/08/18 07:59 Dose: 1,000 mg Admin: 02/07/18 18:11 Dose: 1,000 mg Admin: 02/07/18 08:09 Dose: 1,000 mg Admin: 02/06/18 18:11 Dose: 1,000 mg Admin: 02/06/18 08:08 Dose: 1,000 mg Admin: 02/05/18 18:03 Dose: 1,000 mg Admin: 02/05/18 08:18 Dose: 1,000 mg Admin: 02/04/18 18:27 Dose: 1,000 mg Admin: 02/04/18 08:02 Dose: 1,000 mg Admin: 02/03/18 17:58 Dose: 1,000 mg Admin: 02/03/18 08:02 Dose: 1,000 mg Admin: 02/02/18 18:11 Dose: 1,000 mg Admin: 02/02/18 08:07 Dose: 1,000 mg Admin: 02/01/18 17:35 Dose: 1,000 mg Admin: 02/01/18 08:05 Dose: 1,000 mg Admin: 01/31/18 18:14 Dose: 1,000 mg Admin: 01/31/18 08:11 Dose: 1,000 mg Admin: 01/30/18 18:12 Dose: 1,000 mg Admin: 01/30/18 09:03 Dose: 1,000 mg Admin: 01/29/18 18:01 Dose: 1,000 mg Admin: 01/29/18 08:07 Dose: 1,000 mg Admin: 01/28/18 17:52 Dose: 1,000 mg Admin: 01/28/18 08:16 Dose: 1,000 mg Admin: 01/27/18 17:49 Dose: 1,000 mg Admin: 01/27/18 08:03 Dose: 1,000 mg Admin: 01/26/18 17:57 Dose: 1,000 mg Admin: 01/26/18 08:06 Dose: 1,000 mg Admin: 01/25/18 18:18 Dose: 1,000 mg Admin: 01/25/18 08:34 Dose: 1,000 mg Admin: 01/24/18 18:03 Dose: 1,000 mg Admin: 01/24/18 08:28 Dose: 1,000 mg Admin: 01/23/18 17:45 Dose: 1,000 mg Admin: 01/23/18 09:10 Dose: 1,000 mg Admin: 01/22/18 18:08 Dose: 1,000 mg Multivitamins/Minerals (Centrum) 1 tab PO DAILY [facility] Last Admin: 02/10/18 08:37 Dose: 1 tab Admin: 02/09/18 08:22 Dose: 1 tab Admin: 02/08/18 08:01 Dose: 1 tab Admin: 02/07/18 08:12 Dose: 1 tab Admin: 02/06/18 08:26 Dose: 1 tab Admin: 02/05/18 08:21 Dose: 1 tab Admin: 02/04/18 08:02 Dose: 1 tab Admin: 02/03/18 08:56 Dose: 1 tab Admin: 02/02/18 09:18 Dose: 1 tab Admin: 02/01/18 08:08 Dose: 1 tab Admin: 01/31/18 08:47 Dose: 1 tab Admin: 01/30/18 09:08 Dose: 1 tab Admin: 01/29/18 08:05 Dose: 1 tab Admin: 01/28/18 08:15 Dose: 1 tab Admin: 01/27/18 08:03 Dose: 1 tab Admin: 01/26/18 08:07 Dose: 1 tab Admin: 01/25/18 08:34 Dose: 1 tab Admin: 01/24/18 08:28 Dose: 1 tab Admin: 01/23/18 09:12 Dose: 1 tab Nystatin (Nystop) 1 gm TOP BID [facility] Last Admin: 02/10/18 08:38 Dose: 1 applic Admin: 02/09/18 21:46 Dose: 1 applic Admin: 02/09/18 08:23 Dose: 1 applic Admin: 02/08/18 21:41 Dose: 1 applic Admin: 02/08/18 08:06 Dose: 1 applic Admin: 02/07/18 21:26 Dose: 1 applic Admin: 02/07/18 11:50 Dose: Not Given Admin: 02/06/18 22:07 Dose: 1 applic Admin: 02/06/18 14:49 Dose: Not Given Admin: 02/05/18 21:23 Dose: 1 applic Admin: 02/05/18 12:06 Dose: 1 applic Admin: 02/04/18 22:03 Dose: 1 applic Admin: 02/04/18 08:03 Dose: 1 applic Admin: 02/03/18 21:02 Dose: 1 applic Admin: 02/03/18 08:56 Dose: 1 applic Admin: 02/02/18 21:00 Dose: 1 applic Admin: 02/02/18 09:20 Dose: 1 applic Admin: 02/01/18 20:23 Dose: 1 applic Admin: 02/01/18 08:21 Dose: 1 applic Admin: 01/31/18 20:01 Dose: 1 applic Admin: 01/31/18 12:38 Dose: 1 applic Admin: 01/30/18 20:33 Dose: 1 applic Admin: 01/30/18 09:10 Dose: 1 applic Admin: 01/29/18 20:05 Dose: 1 applic Admin: 01/29/18 11:53 Dose: 1 applic Omeprazole (Omeprazole) 20 mg PO [facility] Last Admin: 02/10/18 07:31 Dose: 20 mg Admin: 02/09/18 07:52 Dose: 20 mg Admin: 02/08/18 08:00 Dose: 20 mg Admin: 02/07/18 07:51 Dose: 20 mg Admin: 02/06/18 07:17 Dose: 20 mg Admin: 02/05/18 07:41 Dose: 20 mg Admin: 02/04/18 07:11 Dose: 20 mg Admin: 02/03/18 07:32 Dose: 20 mg Admin: 02/02/18 07:50 Dose: 20 mg Admin: 02/01/18 07:47 Dose: 20 mg Admin: 01/31/18 07:43 Dose: 20 mg Admin: 01/30/18 07:37 Dose: 20 mg Admin: 01/29/18 08:05 Dose: 20 mg Admin: 01/28/18 07:39 Dose: 20 mg Admin: 01/27/18 08:02 Dose: 20 mg Admin: 01/26/18 07:47 Dose: 20 mg Admin: 01/25/18 06:41 Dose: 20 mg Admin: 01/24/18 07:11 Dose: 20 mg Admin: 01/23/18 09:09 Dose: 20 mg Polyethylene Glycol (Miralax) 17 gm PO DAILY PRN PRN Reason: Constipation Potassium Chloride (Klor-Con 10) 10 meq PO BID [facility] Last Admin: 02/10/18 08:38 Dose: 10 meq Admin: 02/09/18 21:48 Dose: 10 meq Admin: 02/09/18 08:22 Dose: 10 meq Admin: 02/08/18 21:42 Dose: 10 meq Admin: 02/08/18 08:04 Dose: 10 meq Admin: 02/07/18 21:26 Dose: 10 meq Admin: 02/07/18 11:50 Dose: 10 meq Admin: 02/06/18 21:31 Dose: 10 meq Admin: 02/06/18 08:26 Dose: 10 meq Admin: 02/05/18 21:22 Dose: 10 meq Admin: 02/05/18 08:21 Dose: 10 meq Admin: 02/04/18 21:18 Dose: 10 meq Admin: 02/04/18 08:03 Dose: 10 meq Admin: 02/03/18 21:02 Dose: 10 meq Admin: 02/03/18 08:56 Dose: 10 meq Admin: 02/02/18 21:03 Dose: 10 meq Admin: 02/02/18 09:13 Dose: 10 meq Admin: 02/01/18 20:22 Dose: 10 meq Admin: 02/01/18 08:11 Dose: 10 meq Admin: 01/31/18 20:00 Dose: 10 meq Admin: 01/31/18 08:48 Dose: 10 meq Admin: 01/30/18 20:34 Dose: 10 meq Admin: 01/30/18 09:07 Dose: 10 meq Admin: 01/29/18 20:05 Dose: 10 meq Admin: 01/29/18 08:07 Dose: 10 meq Admin: 01/28/18 20:43 Dose: 10 meq Admin: 01/28/18 08:14 Dose: 10 meq Admin: 01/27/18 20:58 Dose: 10 meq Admin: 01/27/18 08:04 Dose: 10 meq Admin: 01/26/18 20:43 Dose: 10 meq Admin: 01/26/18 08:07 Dose: 10 meq Admin: 01/25/18 20:47 Dose: 10 meq Admin: 01/25/18 08:38 Dose: 10 meq Admin: 01/24/18 21:10 Dose: 10 meq Admin: 01/24/18 08:29 Dose: 10 meq Admin: 01/23/18 20:18 Dose: 10 meq Admin: 01/23/18 09:16 Dose: 10 meq Admin: 01/22/18 21:21 Dose: 10 meq Rosuvastatin Calcium (Crestor) 2.5 mg PO DAILY [facility] Last Admin: 02/10/18 08:38 Dose: 2.5 mg Admin: 02/09/18 08:22 Dose: 2.5 mg Admin: 02/08/18 08:03 Dose: 2.5 mg Admin: 02/07/18 08:11 Dose: 2.5 mg Admin: 02/06/18 08:28 Dose: 2.5 mg Admin: 02/05/18 08:19 Dose: 2.5 mg Admin: 02/04/18 08:03 Dose: 2.5 mg Admin: 02/03/18 08:57 Dose: 2.5 mg Admin: 02/02/18 09:49 Dose: 2.5 mg Admin: 02/01/18 08:09 Dose: 2.5 mg Admin: 01/31/18 08:46 Dose: 2.5 mg Admin: 01/30/18 09:09 Dose: 2.5 mg Admin: 01/29/18 08:05 Dose: 2.5 mg Admin: 01/28/18 08:15 Dose: 2.5 mg Admin: 01/27/18 08:04 Dose: 2.5 mg Admin: 01/26/18 08:15 Dose: 2.5 mg Admin: 01/25/18 08:35 Dose: 2.5 mg Sodium Chloride (Saline Flush) 10 ml FLUSH Q18H [facility] Last Admin: 02/09/18 17:51 Dose: 10 ml Admin: 02/09/18 01:04 Dose: 10 ml Admin: 02/08/18 05:34 Dose: 10 ml Admin: 02/07/18 12:30 Dose: 10 ml Admin: 02/06/18 19:22 Dose: 10 ml Admin: 02/06/18 00:24 Dose: 10 ml Admin: 02/05/18 08:04 Dose: 10 ml Admin: 02/04/18 18:55 Dose: 10 ml Admin: 02/03/18 18:08 Dose: 10 ml Admin: 02/03/18 00:02 Dose: 10 ml Admin: 02/02/18 05:34 Dose: 10 ml Admin: 02/01/18 12:52 Dose: 10 ml Admin: 01/31/18 22:25 Dose: 10 ml Admin: 01/31/18 19:30 Dose: 10 ml Sodium Chloride (Saline Flush) 10 ml FLUSH Q18H [facility] Last Admin: 02/09/18 20:45 Dose: 10 ml Admin: 02/09/18 05:52 Dose: 10 ml Admin: 02/08/18 08:56 Dose: 10 ml Tramadol HCl (Ultram) 50 - 100 mg PO Q6H PRN PRN Reason: Pain Last Admin: 02/08/18 11:31 Dose: 50 mg Admin: 02/06/18 08:43 Dose: 50 mg Admin: 02/05/18 09:10 Dose: 50 mg Admin: 02/04/18 21:20 Dose: 50 mg Admin: 02/01/18 20:27 Dose: 50 mg Admin: 02/01/18 10:29 Dose: 50 mg Admin: 01/31/18 21:51 Dose: 50 mg Admin: 01/29/18 11:34 Dose: 50 mg Admin: 01/27/18 20:57 Dose: 50 mg Admin: 01/26/18 05:20 Dose: 50 mg Admin: 01/25/18 14:03 Dose: 50 mg Admin: 01/25/18 10:17 Dose: 50 mg Admin: 01/24/18 11:42 Dose: 100 mg Vancomycin HCl (Pharmacy To Dose - Vancomycin) 0 dose .XX ASDIRECTED [facility] Assessment/Plan Comment:: HPI Summary: 57yoM with long-standing diabetes mellitus admitted on 01/22/18 into swing bed status for PT, IV antibiotics, and wound care following left foot TMA on 01/18/[address] Barrow at [facility]. In fall 2016, he underwent L great toe amputation and long treatment course for osteomyelitis with daptomycin resulting in complete healing of his left foot wound. However the top of the left foot became red and he developed new drainage on the bottom of the foot from a "pus pocket". His sister opened the plantar lesion and he was later evaluated at Dr. Juarez with podiatry on 01/17/18 and noted full thickness ulceration with purulent drainage for with the culture grew MRSA. He was admitted and started on vancomycin and beta-lactam antibiotics. He underwent left foot TMA on 01/18/18. He had a PICC placed. He was seen by ID during stay and was given ongoing antibiotic orders. Update today. Patient had wound dehiscence upon ambulation while in the hospital last week was subsequently sent to Dr. Barrow's office/automation qa lead in [facility] for evaluation initially. He was returned to us with wound VAC however wound VAC malfunctioned and now off with Betadine dressing changes expected and patient will return to Danial's office tomorrow February 11 for reevaluation for possible reapplication of wound VAC to left foot. Continue nonweightbearing for now. Primary problems: # Status post left foot transmetatarsal amputation (TMA)--quit wound dehiscence/ open wound # MRSA cellulitis # Debility Tolerating IV antibiotic without difficulty--premedicated with diphenhydramine HCl. With open wound nonweightbearing now - Was seen by Dr. Barrow February 04 sutures removed, however wound dehiscence, was placed on wound VAC however malfunctioned, RV 02/11/18 as well as ID on . - Continue dressing changes as directed - Continue vancomycin via PICC with careful monitoring of trough - Continue diphenhydramine with vancomycin infusions - Continue probiotic - Continue Tylenol and tramadol for pain - Continue PT - Continue enoxaparin for DVT ppx Chronic, stable medical conditions: # HTN: Losartan, HCTZ. # GERD: PPI. # DMT2 with diabetic polyneuropathy: Levemir, Novolog, metformin, Victoza. # HLD: Crestor and ASA. # Electrolyte and vitamin deficiencies: Continue KCl, Ca/D, and MV. # Obesity with BMI 30.0-39.9: 1800 ADA calorie diet # Anxiety: Lexapro. Hospitalization issues: # Code status: FULL. # Emergency contact: Sister. # Disposition: Continue on swing bed status. Anticipate eventual discharge to home following improved mobility and following IV antibiotic therapy, long with successful closure with wound VAC therapy.
[2018-02-10] MEDS: diphenhydrAMINE 25 MG Cap PO SCH (11:23)
[2018-02-10] MEDS: Enoxaparin 40 MG/0.4 ML Syringe SUBCUT SCH (11:54)
[2018-02-10] MEDS: Sodium Chloride 0.9% 10 ML Syringe FLUSH SCH ×2 (11:55→14:54)
[2018-02-11] MEDS: diphenhydrAMINE 25 MG Cap PO SCH ×2 (05:10→23:21)
[2018-02-11] MEDS: Sodium Chloride 0.9% 10 ML Syringe FLUSH SCH ×2 (05:44→08:32)
[2018-02-11] MEDS: Omeprazole 20 MG Cap.CR PO SCH (07:40)
[2018-02-11] MEDS: Calcium Citrate/Vitamin D3 315 MG-250 Unit Tab PO SCH ×2 (08:00→18:08)
[2018-02-11] MEDS: metFORMIN 500 MG Tab PO SCH ×2 (08:00→18:08)
[2018-02-11] MEDS: Insulin Aspart 100 Units/ML 3 ML Pen SUBCUT SCH ×3 (08:00→18:14)
[2018-02-11] MEDS: Escitalopram 10 MG Tab PO SCH (08:20)
[2018-02-11] MEDS: Acetaminophen 325 MG Tab PO SCH ×3 (08:20→21:25)
[2018-02-11] MEDS: Aspirin 325 MG Tab.EC PO SCH (08:20)
[2018-02-11] MEDS: Multivitamins with Minerals/Iron/Folic Acid/Lycopene Tab PO SCH (08:20)
[2018-02-11] MEDS: Potassium Chloride 10 MEQ Tab.ER PO SCH ×2 (08:20→21:24)
[2018-02-11] MEDS: Hydrochlorothiazide 25 MG Tab PO SCH (08:21)
[2018-02-11] MEDS: Rosuvastatin 5 MG Tab PO SCH (08:22)
[2018-02-11] MEDS: B.Bifidum/B.Longum/L.Acidophilus/L.Rhamnosus (Probiotic) Cap PO SCH (08:23)
[2018-02-11] MEDS: Losartan 25 MG Tab PO SCH (08:27)
[2018-02-11] MEDS: Insulin Detemir 100 Units/ML 3 ML Pen SUBCUT SCH (08:30)
[2018-02-11] MEDS: Liraglutide (rDNA Origin) 0.6 MG/0.1 ML 3 ML Pen SUBCUT SCH (08:30)
[2018-02-11] MEDS: Nystatin Topical Powder 15 GM Bottle TOP SCH ×2 (08:31→21:24)
[2018-02-11] MEDS: Enoxaparin 40 MG/0.4 ML Syringe SUBCUT SCH (08:45)
[2018-02-11] MEDS: Sodium Chloride 0.9% 50 ML IV SCH (11:38)
[2018-02-11] MEDS: traMADol 50 MG Tab PO PRN (16:04)
[2018-02-12] MEDS: Sodium Chloride 0.9% 10 ML Syringe FLUSH SCH ×4 (02:45→20:53)
[2018-02-12] MEDS: Omeprazole 20 MG Cap.CR PO SCH (07:44)
[2018-02-12] MEDS: Insulin Aspart 100 Units/ML 3 ML Pen SUBCUT SCH ×3 (08:19→18:16)
[2018-02-12] MEDS: Insulin Detemir 100 Units/ML 3 ML Pen SUBCUT SCH (08:22)
[2018-02-12] MEDS: Liraglutide (rDNA Origin) 0.6 MG/0.1 ML 3 ML Pen SUBCUT SCH (08:24)
[2018-02-12] MEDS: Acetaminophen 325 MG Tab PO SCH ×3 (08:26→20:50)
[2018-02-12] MEDS: Escitalopram 10 MG Tab PO SCH (08:27)
[2018-02-12] MEDS: Hydrochlorothiazide 25 MG Tab PO SCH (08:27)
[2018-02-12] MEDS: Aspirin 325 MG Tab.EC PO SCH (08:27)
[2018-02-12] MEDS: metFORMIN 500 MG Tab PO SCH ×2 (08:27→18:14)
[2018-02-12] MEDS: Calcium Citrate/Vitamin D3 315 MG-250 Unit Tab PO SCH ×2 (08:27→18:14)
[2018-02-12] MEDS: Potassium Chloride 10 MEQ Tab.ER PO SCH ×2 (08:28→20:49)
[2018-02-12] MEDS: Losartan 25 MG Tab PO SCH (08:28)
[2018-02-12] MEDS: Rosuvastatin 5 MG Tab PO SCH (08:28)
[2018-02-12] MEDS: B.Bifidum/B.Longum/L.Acidophilus/L.Rhamnosus (Probiotic) Cap PO SCH (08:28)
[2018-02-12] MEDS: Multivitamins with Minerals/Iron/Folic Acid/Lycopene Tab PO SCH (08:29)
[2018-02-12] MEDS: traMADol 50 MG Tab PO PRN (09:54)
[2018-02-12] MEDS: Enoxaparin 40 MG/0.4 ML Syringe SUBCUT SCH (11:52)
[2018-02-12] MEDS: Nystatin Topical Powder 15 GM Bottle TOP SCH ×2 (14:41→20:49)
[2018-02-12] MEDS: Sodium Chloride 0.9% 50 ML IV SCH (17:46)
[2018-02-12] MEDS: diphenhydrAMINE 25 MG Cap PO SCH (17:46)
[2018-02-13] MEDS: Omeprazole 20 MG Cap.CR PO SCH (07:19)
[2018-02-13] MEDS: metFORMIN 500 MG Tab PO SCH ×2 (08:18→18:09)
[2018-02-13] MEDS: Calcium Citrate/Vitamin D3 315 MG-250 Unit Tab PO SCH ×2 (08:18→18:07)
[2018-02-13] MEDS: Insulin Aspart 100 Units/ML 3 ML Pen SUBCUT SCH ×3 (08:19→18:09)
[2018-02-13] MEDS: Nystatin Topical Powder 15 GM Bottle TOP SCH ×2 (09:24→20:14)
[2018-02-13] MEDS: Rosuvastatin 5 MG Tab PO SCH (09:25)
[2018-02-13] MEDS: B.Bifidum/B.Longum/L.Acidophilus/L.Rhamnosus (Probiotic) Cap PO SCH (09:26)
[2018-02-13] MEDS: diphenhydrAMINE 25 MG Cap PO SCH ×2 (09:26→12:19)
[2018-02-13] MEDS: Aspirin 325 MG Tab.EC PO SCH (09:26)
[2018-02-13] MEDS: Escitalopram 10 MG Tab PO SCH (09:26)
[2018-02-13] MEDS: Losartan 25 MG Tab PO SCH (09:27)
[2018-02-13] MEDS: Hydrochlorothiazide 25 MG Tab PO SCH (09:28)
[2018-02-13] MEDS: Potassium Chloride 10 MEQ Tab.ER PO SCH ×2 (09:28→20:13)
[2018-02-13] MEDS: Multivitamins with Minerals/Iron/Folic Acid/Lycopene Tab PO SCH (09:28)
[2018-02-13] MEDS: Insulin Detemir 100 Units/ML 3 ML Pen SUBCUT SCH (09:29)
[2018-02-13] MEDS: Liraglutide (rDNA Origin) 0.6 MG/0.1 ML 3 ML Pen SUBCUT SCH (09:30)
[2018-02-13] MEDS: Acetaminophen 325 MG Tab PO SCH ×3 (09:31→20:13)
[2018-02-13] MEDS: traMADol 50 MG Tab PO PRN (11:12)
[2018-02-13] MEDS: Sodium Chloride 0.9% 50 ML IV SCH (11:13)
[2018-02-13] MEDS: Enoxaparin 40 MG/0.4 ML Syringe SUBCUT SCH (12:27)
[2018-02-13] MEDS: Sodium Chloride 0.9% 10 ML Syringe FLUSH SCH ×3 (12:35→20:11)
[2018-02-14] MEDS: diphenhydrAMINE 25 MG Cap PO SCH ×2 (06:23→23:32)
[2018-02-14] MEDS: Sodium Chloride 0.9% 10 ML Syringe FLUSH SCH ×3 (06:53→23:57)
[2018-02-14] MEDS: Omeprazole 20 MG Cap.CR PO SCH (07:26)
[2018-02-14] MEDS: metFORMIN 500 MG Tab PO SCH ×2 (08:34→18:20)
[2018-02-14] MEDS: Calcium Citrate/Vitamin D3 315 MG-250 Unit Tab PO SCH ×2 (08:34→18:19)
[2018-02-14] MEDS: Insulin Aspart 100 Units/ML 3 ML Pen SUBCUT SCH ×3 (08:35→18:20)
--- NOTE | 2018-02-14 09:07 | PCM.PN ---
- General Info Date of Service: 02/14/18 Functional Status: Reports: Pain Controlled, Tolerating Diet. Denies: Ambulating (Medina states he is pivoting on his left heel--activity order needs to be verified) - Review of Systems General: Denies: Fever, Weakness HEENT: Reports: No Symptoms Pulmonary: Reports: No Symptoms Cardiovascular: Reports: No Symptoms Gastrointestinal: Reports: Constipation Genitourinary: Reports: No Symptoms Musculoskeletal: Denies: Foot Pain Skin: Reports: Mottled, Other (Wound left foot) Neurological: Reports: Difficulty Walking, Gait Disturbance. Denies: Weakness Psychiatric: Reports: No Symptoms - Patient Data Vitals - Most Recent: Last Vital Signs Temp 97.0 F 02/14/18 06:53 Pulse 89 02/14/18 06:53 Resp 20 02/14/18 06:53 BP 119/76 02/14/18 06:53 Pulse Ox 99 02/14/18 06:53 Weight - Most Recent: 264 lb 3 oz I&O - Last 24 Hours: Intake & Output 02/13/18 02/14/18 02/14/18 22:59 06:59 14:59 Intake Total 805 300 Output Total 400 1900 Balance 405 -1600 Lab Results Last 24 Hours: Laboratory Results - last 24 hr 02/13/18 02/13/18 02/13/18 Range/Units 11:10 18:03 20:13 POC Glucose 152 H 276 H 160 H (74-106) mg/dl 02/14/18 Range/Units 07:00 POC Glucose 146 H (74-106) mg/dl Med Orders - Current: Current Medications Acetaminophen (Tylenol) 650 mg PO TID [facility] Last Admin: 02/13/18 20:13 Dose: 650 mg Aspirin (Ecotrin) 325 mg PO DAILY [facility] Last Admin: 02/13/18 09:26 Dose: 325 mg Calcium Citrate (Calcium Citrate + D) 2 tab PO BIDMEALS [facility] Last Admin: 02/14/18 08:34 Dose: 2 tab Diphenhydramine HCl (Benadryl) 25 mg PO Q18H [facility] Last Admin: 02/14/18 06:23 Dose: 25 mg Enoxaparin Sodium (Lovenox) 40 mg SUBCUT Q24H [facility] Last Admin: 02/13/18 12:27 Dose: 40 mg Escitalopram Oxalate (Lexapro) 10 mg PO DAILY [facility] Last Admin: 02/13/18 09:26 Dose: 10 mg Hydrochlorothiazide (Hydrochlorothiazide) 25 mg PO DAILY [facility] Last Admin: 02/13/18 09:28 Dose: 25 mg Vancomycin HCl 1.5 gm/ Sodium (Chloride) 280 mls @ 112 mls/hr IV Q18H [facility] Last Admin: 02/14/18 06:56 Dose: 112 mls/hr Sodium Chloride (Normal Saline) 50 mls @ 12.5 mls/hr IV DAILY [facility] Last Admin: 02/13/18 11:13 Dose: 12.5 mls/hr Insulin Aspart (Novolog) 7 unit SUBCUT TIDMEALS [facility] Last Admin: 02/14/18 08:35 Dose: 7 units Insulin Detemir (Levemir) 13 unit SUBCUT DAILY [facility] Last Admin: 02/13/18 09:29 Dose: 13 units Lactobacillus Acidophilus/Rhamnosus (Multi-Lina Plus) 1 cap PO DAILY [facility] Last Admin: 02/13/18 09:26 Dose: 1 cap Liraglutide (Victoza) 1.8 mg SUBCUT DAILY [facility] Last Admin: 02/13/18 09:30 Dose: 1.8 mg Losartan Potassium (Cozaar) 25 mg PO DAILY [facility] Last Admin: 02/13/18 09:27 Dose: 25 mg Magnesium Hydroxide (Milk Of Magnesia) 30 ml PO DAILY PRN PRN Reason: Constipation Metformin HCl (Glucophage) 1,000 mg PO BIDMEALS [facility] Last Admin: 02/14/18 08:34 Dose: 1,000 mg Multivitamins/Minerals (Centrum) 1 tab PO DAILY [facility] Last Admin: 02/13/18 09:28 Dose: 1 tab Nystatin (Nystop) 1 gm TOP BID [facility] Last Admin: 02/13/18 20:14 Dose: 1 applic Omeprazole (Omeprazole) 20 mg PO ACBREAKFAST [facility] Last Admin: 02/14/18 07:26 Dose: 20 mg Polyethylene Glycol (Miralax) 17 gm PO DAILY PRN PRN Reason: Constipation Potassium Chloride (Klor-Con 10) 10 meq PO BID [facility] Last Admin: 02/13/18 20:13 Dose: 10 meq Rosuvastatin Calcium (Crestor) 2.5 mg PO DAILY [facility] Last Admin: 02/13/18 09:25 Dose: 2.5 mg Sodium Chloride (Saline Flush) 10 ml FLUSH Q18H [facility] Last Admin: 02/14/18 06:53 Dose: 10 ml Sodium Chloride (Saline Flush) 10 ml FLUSH Q18H [facility] Last Admin: 02/13/18 20:11 Dose: 10 ml Tramadol HCl (Ultram) 50 - 100 mg PO Q6H PRN PRN Reason: Pain Last Admin: 02/13/18 11:12 Dose: 100 mg Vancomycin HCl (Pharmacy To Dose - Vancomycin) 0 dose .XX ASDIRECTED [facility] Discontinued Medications Alteplase, Recombinant (Cathflo Activase) 2 mg IVPUSH ONETIME ONE Stop: 01/24/18 14:11 Last Admin: 01/24/18 14:18 Dose: 2 mg Alteplase, Recombinant (Cathflo Activase) 2 mg IVPUSH ONETIME ONE Stop: 01/31/18 09:31 Last Admin: 01/31/18 13:11 Dose: 2 mg Alteplase, Recombinant (Cathflo Activase) 2 mg IV ONETIME ONE Stop: 01/31/18 13:46 Last Admin: 01/31/18 13:11 Dose: 2 mg Diphenhydramine HCl (Benadryl) 25 mg PO Q12H [facility] Last Admin: 01/23/18 11:44 Dose: Not Given Diphenhydramine HCl (Benadryl) 25 mg PO 0730,1930 [facility] Last Admin: 01/25/18 13:59 Dose: 25 mg Diphenhydramine HCl (Benadryl) 25 mg PO Q18H [facility] Last Admin: 01/29/18 08:48 Dose: Not Given Vancomycin HCl 2 gm/ Sodium (Chloride) 540 mls @ 166 mls/hr IV Q12H [facility] Last Admin: 01/23/18 11:43 Dose: Not Given Sodium Chloride (Normal Saline) Confirm Administered Dose 100 mls @ as directed .ROUTE .STK-MED ONE Stop: 01/22/18 19:26 Last Admin: 01/22/18 19:55 Dose: 25 mls/hr Vancomycin HCl 1.5 gm/ Sodium (Chloride) 250 mls @ 100 mls/hr IV Q12H [facility] Vancomycin HCl 1.5 gm/ Sodium (Chloride) 280 mls @ 112 mls/hr IV Q12H [facility] Last Admin: 01/25/18 07:52 Dose: Not Given Vancomycin HCl 1.5 gm/ Sodium (Chloride) 280 mls @ 112 mls/hr IV Q18H [facility] Last Admin: 01/28/18 18:35 Dose: Not Given Sodium Chloride (Normal Saline) 50 mls @ 25 mls/hr IV DAILY [facility] Sodium Chloride (Normal Saline) Confirm Administered Dose 50 mls @ as directed .ROUTE .[facility] ONE Stop: 01/30/18 07:33 Last Admin: 01/30/18 09:01 Dose: 30 mls/hr Sodium Chloride (Normal Saline) 100 mls @ 25 mls/hr IV DAILY [facility] Last Admin: 02/01/18 12:51 Dose: 25 mls/hr Sodium Chloride (Normal Saline) Confirm Administered Dose 100 mls @ as directed .ROUTE .[facility] ONE Stop: 01/31/18 00:08 Last Admin: 01/31/18 01:15 Dose: Not Given Sodium Chloride (Normal Saline) Confirm Administered Dose 50 mls @ as directed .ROUTE .[facility] ONE Stop: 01/31/18 19:15 Last Admin: 01/31/18 19:32 Dose: Not Given Rosuvastatin Calcium (Crestor) 2.5 mg PO DAILY [facility] Last Admin: 01/24/18 08:31 Dose: 2.5 mg Sodium Chloride (Saline Flush) 10 ml FLUSH BID@0630,1830 [facility] Last Admin: 01/23/18 11:43 Dose: Not Given Sodium Chloride (Saline Flush) 10 ml FLUSH 0800,1030,2000,2230 [facility] Last Admin: 01/25/18 10:20 Dose: Not Given Sodium Chloride (Saline Flush) 10 ml FLUSH Q18H [facility] Last Admin: 01/29/18 08:48 Dose: Not Given Sodium Chloride (Saline Flush) 10 ml IV Q18H [facility] Last Admin: 01/28/18 21:26 Dose: 10 ml Sodium Chloride (Saline Flush) 10 ml FLUSH Q18H [facility] Last Admin: 01/31/18 03:25 Dose: 10 ml Sodium Chloride (Saline Flush) 10 ml IV Q18H [facility] Last Admin: 01/31/18 03:43 Dose: Not Given Sodium Chloride (Saline Flush) 10 ml FLUSH Q18H [facility] Last Admin: 01/31/18 17:18 Dose: Not Given Sodium Chloride (Saline Flush) 10 ml FLUSH Q18H [facility] Last Admin: 02/07/18 15:10 Dose: 10 ml - Exam Quality Assessment: No: Supplemental Oxygen General: Alert, Oriented Lungs: Clear to Auscultation, Normal Respiratory Effort Cardiovascular: Regular Rate, Regular Rhythm GI/Abdominal Exam: No: No Distention (Male) Exam: No: Rash Extremities: No Pedal Edema Wound/Incisions: Dressing Dry and Intact, Other (3-4 cm open wound left foot, previous dehiscence, no signs of infection, healing well) Psy/Mental Status: Alert, Normal Affect, Normal Mood - Problem List Review Problem List Initiated/Reviewed/Updated: Yes - Plan Plan:: HPI Summary: 57yoM with long-standing diabetes mellitus admitted on 01/22/18 into swing bed status for PT, IV antibiotics, and wound care following left foot TMA on 01/18/[address] Barrow at [facility]. In fall 2016, he underwent L great toe amputation and long treatment course for osteomyelitis with daptomycin resulting in complete healing of his left foot wound. However the top of the left foot became red and he developed new drainage on the bottom of the foot from a "pus pocket". His sister opened the plantar lesion and he was later evaluated at Dr. Juarez with podiatry on 01/17/18 and noted full thickness ulceration with purulent drainage for with the culture grew MRSA. He was admitted and started on vancomycin and beta-lactam antibiotics. He underwent left foot TMA on 01/18/18. He had a PICC placed. He was seen by ID during stay and was given ongoing antibiotic orders. Update. Remove the dressing inspected wound, 3-4 cm wound dehiscence left foot , healing well previous dehiscence. No signs of infection. Warm with strong pulses pedal. No longer has wound VAC. Need to verify activity level. He was returned to us with wound VAC however wound VAC malfunctioned and now off with Betadine dressing changes expected and patient will return to Danial's office tomorrow February 11 for reevaluation for possible reapplication of wound VAC to left foot. Verify activity level Primary problems: # Status post left foot transmetatarsal amputation (TMA)--wound dehiscence/open wound # MRSA cellulitis # Debility #Constipation, MiraLAX Tolerating IV antibiotic without difficulty--premedicated with diphenhydramine HCl. - Was seen by Dr. Barrow February 04 sutures removed, however wound dehiscence, was placed on wound VAC however malfunctioned, RV 02/11/18 as well as ID on . - Continue dressing changes as directed - Continue vancomycin via PICC with careful monitoring of trough - Continue diphenhydramine with vancomycin infusions - Continue probiotic - Continue Tylenol and tramadol for pain - Continue PT - Continue enoxaparin for DVT ppx Chronic, stable medical conditions: # HTN: Losartan, HCTZ. # GERD: PPI. # DMT2 with diabetic polyneuropathy: Levemir, Novolog, metformin, Victoza. # HLD: Crestor and ASA. # Electrolyte and vitamin deficiencies: Continue KCl, Ca/D, and MV. # Obesity with BMI 30.0-39.9: 1800 ADA calorie diet # Anxiety: Lexapro. Hospitalization issues: # Code status: FULL. # Emergency contact: Sister. # Disposition: Continue on swing bed status. Vancomycin via PICC line, vancomycin trough therapeutic, verify activity order through Dr. Barrow's office, anticipate 2 more weeks of IV antibiotics. Dressing changes.
[2018-02-14] MEDS: Hydrochlorothiazide 25 MG Tab PO SCH (09:28)
[2018-02-14] MEDS: Losartan 25 MG Tab PO SCH (09:28)
[2018-02-14] MEDS: Rosuvastatin 5 MG Tab PO SCH (09:28)
[2018-02-14] MEDS: Multivitamins with Minerals/Iron/Folic Acid/Lycopene Tab PO SCH (09:29)
[2018-02-14] MEDS: B.Bifidum/B.Longum/L.Acidophilus/L.Rhamnosus (Probiotic) Cap PO SCH (09:29)
[2018-02-14] MEDS: Potassium Chloride 10 MEQ Tab.ER PO SCH ×2 (09:29→20:52)
[2018-02-14] MEDS: Aspirin 325 MG Tab.EC PO SCH (09:30)
[2018-02-14] MEDS: Insulin Detemir 100 Units/ML 3 ML Pen SUBCUT SCH (09:30)
[2018-02-14] MEDS: Escitalopram 10 MG Tab PO SCH (09:30)
[2018-02-14] MEDS: Nystatin Topical Powder 15 GM Bottle TOP SCH ×2 (09:31→20:55)
[2018-02-14] MEDS: Liraglutide (rDNA Origin) 0.6 MG/0.1 ML 3 ML Pen SUBCUT SCH (09:31)
[2018-02-14] MEDS: Acetaminophen 325 MG Tab PO SCH ×3 (09:32→20:53)
[2018-02-14] MEDS: Enoxaparin 40 MG/0.4 ML Syringe SUBCUT SCH (12:51)
[2018-02-14] MEDS: Sodium Chloride 0.9% 50 ML IV SCH (12:52)
[2018-02-14] MEDS: traMADol 50 MG Tab PO PRN (17:05)
[2018-02-15] MEDS: Sodium Chloride 0.9% 10 ML Syringe FLUSH SCH ×3 (02:52→21:19)
[2018-02-15] MEDS: Calcium Citrate/Vitamin D3 315 MG-250 Unit Tab PO SCH ×2 (07:58→17:56)
[2018-02-15] MEDS: metFORMIN 500 MG Tab PO SCH ×2 (07:59→17:56)
[2018-02-15] MEDS: Insulin Aspart 100 Units/ML 3 ML Pen SUBCUT SCH ×3 (07:59→17:57)
[2018-02-15] MEDS: Omeprazole 20 MG Cap.CR PO SCH (08:00)
[2018-02-15] MEDS: Aspirin 325 MG Tab.EC PO SCH (08:01)
[2018-02-15] MEDS: Multivitamins with Minerals/Iron/Folic Acid/Lycopene Tab PO SCH (08:01)
[2018-02-15] MEDS: Losartan 25 MG Tab PO SCH (08:01)
[2018-02-15] MEDS: Hydrochlorothiazide 25 MG Tab PO SCH (08:01)
[2018-02-15] MEDS: Rosuvastatin 5 MG Tab PO SCH (08:02)
[2018-02-15] MEDS: Insulin Detemir 100 Units/ML 3 ML Pen SUBCUT SCH (08:03)
[2018-02-15] MEDS: Liraglutide (rDNA Origin) 0.6 MG/0.1 ML 3 ML Pen SUBCUT SCH (08:03)
[2018-02-15] MEDS: B.Bifidum/B.Longum/L.Acidophilus/L.Rhamnosus (Probiotic) Cap PO SCH (08:04)
[2018-02-15] MEDS: Escitalopram 10 MG Tab PO SCH (08:04)
[2018-02-15] MEDS: Nystatin Topical Powder 15 GM Bottle TOP SCH ×2 (08:04→21:19)
[2018-02-15] MEDS: Potassium Chloride 10 MEQ Tab.ER PO SCH ×2 (08:05→21:19)
[2018-02-15] MEDS: Acetaminophen 325 MG Tab PO SCH ×3 (08:06→21:20)
[2018-02-15] MEDS: Enoxaparin 40 MG/0.4 ML Syringe SUBCUT SCH (12:02)
[2018-02-15] MEDS: diphenhydrAMINE 25 MG Cap PO SCH (17:55)
[2018-02-15] MEDS: Sodium Chloride 0.9% 50 ML IV SCH (18:25)
[2018-02-16] MEDS: Insulin Aspart 100 Units/ML 3 ML Pen SUBCUT SCH ×3 (08:10→18:05)
[2018-02-16] MEDS: Liraglutide (rDNA Origin) 0.6 MG/0.1 ML 3 ML Pen SUBCUT SCH (08:11)
[2018-02-16] MEDS: Insulin Detemir 100 Units/ML 3 ML Pen SUBCUT SCH (08:12)
[2018-02-16] MEDS: Nystatin Topical Powder 15 GM Bottle TOP SCH ×2 (08:14→20:37)
[2018-02-16] MEDS: Escitalopram 10 MG Tab PO SCH (08:15)
[2018-02-16] MEDS: metFORMIN 500 MG Tab PO SCH ×2 (08:16→18:05)
[2018-02-16] MEDS: Rosuvastatin 5 MG Tab PO SCH (08:16)
[2018-02-16] MEDS: Calcium Citrate/Vitamin D3 315 MG-250 Unit Tab PO SCH ×2 (08:16→18:05)
[2018-02-16] MEDS: Multivitamins with Minerals/Iron/Folic Acid/Lycopene Tab PO SCH (08:17)
[2018-02-16] MEDS: Omeprazole 20 MG Cap.CR PO SCH (08:17)
[2018-02-16] MEDS: Losartan 25 MG Tab PO SCH (08:18)
[2018-02-16] MEDS: Potassium Chloride 10 MEQ Tab.ER PO SCH ×2 (08:18→20:38)
[2018-02-16] MEDS: B.Bifidum/B.Longum/L.Acidophilus/L.Rhamnosus (Probiotic) Cap PO SCH (08:18)
[2018-02-16] MEDS: Aspirin 325 MG Tab.EC PO SCH (08:18)
[2018-02-16] MEDS: Hydrochlorothiazide 25 MG Tab PO SCH (08:19)
[2018-02-16] MEDS: Acetaminophen 325 MG Tab PO SCH ×3 (08:20→20:38)
[2018-02-16] MEDS: diphenhydrAMINE 25 MG Cap PO SCH (11:22)
[2018-02-16] MEDS: Sodium Chloride 0.9% 10 ML Syringe FLUSH SCH ×3 (11:44→15:45)
[2018-02-16] MEDS: Enoxaparin 40 MG/0.4 ML Syringe SUBCUT SCH (11:48)
[2018-02-16] MEDS: Sodium Chloride 0.9% 50 ML IV SCH (14:30)
[2018-02-17] MEDS: diphenhydrAMINE 25 MG Cap PO SCH ×2 (05:29→23:17)
[2018-02-17] MEDS: Sodium Chloride 0.9% 10 ML Syringe FLUSH SCH ×3 (06:04→23:50)
[2018-02-17] MEDS: Sodium Chloride 0.9% 50 ML IV SCH ×2 (06:04→10:56)
[2018-02-17] MEDS: Nystatin Topical Powder 15 GM Bottle TOP SCH ×2 (08:30→21:16)
[2018-02-17] MEDS: Calcium Citrate/Vitamin D3 315 MG-250 Unit Tab PO SCH ×2 (08:31→17:35)
[2018-02-17] MEDS: Multivitamins with Minerals/Iron/Folic Acid/Lycopene Tab PO SCH (08:31)
[2018-02-17] MEDS: B.Bifidum/B.Longum/L.Acidophilus/L.Rhamnosus (Probiotic) Cap PO SCH (08:32)
[2018-02-17] MEDS: Omeprazole 20 MG Cap.CR PO SCH (08:32)
[2018-02-17] MEDS: Potassium Chloride 10 MEQ Tab.ER PO SCH ×2 (08:32→21:15)
[2018-02-17] MEDS: Rosuvastatin 5 MG Tab PO SCH (08:32)
[2018-02-17] MEDS: Hydrochlorothiazide 25 MG Tab PO SCH (08:32)
[2018-02-17] MEDS: Insulin Aspart 100 Units/ML 3 ML Pen SUBCUT SCH ×3 (08:33→17:33)
[2018-02-17] MEDS: Escitalopram 10 MG Tab PO SCH (08:33)
[2018-02-17] MEDS: metFORMIN 500 MG Tab PO SCH ×2 (08:33→17:35)
[2018-02-17] MEDS: Aspirin 325 MG Tab.EC PO SCH (08:33)
[2018-02-17] MEDS: Acetaminophen 325 MG Tab PO SCH ×3 (08:36→21:15)
[2018-02-17] MEDS: Liraglutide (rDNA Origin) 0.6 MG/0.1 ML 3 ML Pen SUBCUT SCH (08:41)
[2018-02-17] MEDS: Losartan 25 MG Tab PO SCH (08:43)
[2018-02-17] MEDS: Insulin Detemir 100 Units/ML 3 ML Pen SUBCUT SCH (08:43)
[2018-02-17] MEDS: Enoxaparin 40 MG/0.4 ML Syringe SUBCUT SCH (12:43)
[2018-02-17] MEDS: traMADol 50 MG Tab PO PRN (20:06)
[2018-02-18] MEDS: Sodium Chloride 0.9% 10 ML Syringe FLUSH SCH ×3 (02:43→21:00)
[2018-02-18] MEDS: Omeprazole 20 MG Cap.CR PO SCH (07:15)
[2018-02-18] MEDS: metFORMIN 500 MG Tab PO SCH ×2 (07:59→18:00)
[2018-02-18] MEDS: Calcium Citrate/Vitamin D3 315 MG-250 Unit Tab PO SCH ×2 (07:59→18:00)
[2018-02-18] MEDS: Escitalopram 10 MG Tab PO SCH (08:00)
[2018-02-18] MEDS: B.Bifidum/B.Longum/L.Acidophilus/L.Rhamnosus (Probiotic) Cap PO SCH (08:00)
[2018-02-18] MEDS: Rosuvastatin 5 MG Tab PO SCH (08:00)
[2018-02-18] MEDS: Aspirin 325 MG Tab.EC PO SCH (08:01)
[2018-02-18] MEDS: Multivitamins with Minerals/Iron/Folic Acid/Lycopene Tab PO SCH (08:01)
[2018-02-18] MEDS: Potassium Chloride 10 MEQ Tab.ER PO SCH ×2 (08:01→21:00)
[2018-02-18] MEDS: Hydrochlorothiazide 25 MG Tab PO SCH (08:01)
[2018-02-18] MEDS: Losartan 25 MG Tab PO SCH (08:03)
[2018-02-18] MEDS: Insulin Aspart 100 Units/ML 3 ML Pen SUBCUT SCH ×3 (08:03→18:00)
[2018-02-18] MEDS: Insulin Detemir 100 Units/ML 3 ML Pen SUBCUT SCH (08:05)
[2018-02-18] MEDS: Nystatin Topical Powder 15 GM Bottle TOP SCH (08:06)
[2018-02-18] MEDS: Liraglutide (rDNA Origin) 0.6 MG/0.1 ML 3 ML Pen SUBCUT SCH (08:07)
[2018-02-18] MEDS: Sodium Chloride 0.9% 50 ML IV SCH ×2 (08:08→17:30)
[2018-02-18] MEDS: Acetaminophen 325 MG Tab PO SCH ×3 (08:09→21:00)
--- NOTE | 2018-02-18 09:37 | PCM.PN ---
- General Info Date of Service: 02/18/18 Subjective Update: Patient voices no concerns today. He states he will see orthopedics on 02/21/18 to be fitted for a boot and he will see ID on 02/25/18. Functional Status: Reports: Pain Controlled, Tolerating Diet, Ambulating (Non- weight bearing to left foot), Urinating. Denies: New Symptoms - Review of Systems General: Reports: No Symptoms HEENT: Denies: Headaches Pulmonary: Denies: Shortness of Breath Cardiovascular: Denies: Chest Pain, Edema Gastrointestinal: Denies: Abdominal Pain, Constipation, Decreased Appetite, Diarrhea Genitourinary: Reports: No Symptoms Musculoskeletal: Denies: Foot Pain Skin: Reports: Other (wound to left foot) Neurological: Denies: Headache Psychiatric: Reports: No Symptoms - Patient Data Vitals - Most Recent: Last Vital Signs Temp 98.7 F 02/18/18 06:58 Pulse 82 02/18/18 06:58 Resp 18 02/18/18 06:58 BP 123/73 02/18/18 08:03 Pulse Ox 98 02/18/18 06:58 Weight - Most Recent: 264 lb 3 oz I&O - Last 24 Hours: Intake & Output 02/17/18 02/18/18 02/18/18 22:59 06:59 14:59 Intake Total 600 650 Output Total 325 800 Balance 275 -150 Lab Results Last 24 Hours: Laboratory Results - last 24 hr 02/17/18 02/17/18 02/17/18 Range/Units 12:10 17:29 21:11 POC Glucose 120 H 171 H 120 H (74-106) mg/dl 02/18/18 Range/Units 07:07 POC Glucose 130 H (74-106) mg/dl Med Orders - Current: Current Medications Acetaminophen (Tylenol) 650 mg PO TID COUNTS INCLUDE 234 BEDS AT [facility] Last Admin: 02/18/18 08:09 Dose: 650 mg Aspirin (Ecotrin) 325 mg PO DAILY COUNTS INCLUDE 234 BEDS AT [facility] Last Admin: 02/18/18 08:01 Dose: 325 mg Calcium Citrate (Calcium Citrate + D) 2 tab PO BIDMEALS COUNTS INCLUDE 234 BEDS AT [facility] Last Admin: 02/18/18 07:59 Dose: 2 tab Diphenhydramine HCl (Benadryl) 25 mg PO Q18H COUNTS INCLUDE 234 BEDS AT [facility] Last Admin: 02/17/18 23:17 Dose: 25 mg Enoxaparin Sodium (Lovenox) 40 mg SUBCUT Q24H COUNTS INCLUDE 234 BEDS AT [facility] Last Admin: 02/17/18 12:43 Dose: 40 mg Escitalopram Oxalate (Lexapro) 10 mg PO DAILY COUNTS INCLUDE 234 BEDS AT [facility] Last Admin: 02/18/18 08:00 Dose: 10 mg Hydrochlorothiazide (Hydrochlorothiazide) 25 mg PO DAILY COUNTS INCLUDE 234 BEDS AT [facility] Last Admin: 02/18/18 08:01 Dose: 25 mg Vancomycin HCl 1.5 gm/ Sodium (Chloride) 280 mls @ 112 mls/hr IV Q18H COUNTS INCLUDE 234 BEDS AT THE [facility] Last Admin: 02/17/18 23:50 Dose: 112 mls/hr Sodium Chloride (Normal Saline) 50 mls @ 12.5 mls/hr IV DAILY COUNTS INCLUDE 234 BEDS AT [facility] Last Admin: 02/18/18 08:08 Dose: Not Given Insulin Aspart (Novolog) 7 unit SUBCUT TIDMEALS COUNTS INCLUDE 234 BEDS AT [facility] Last Admin: 02/18/18 08:03 Dose: 7 units Insulin Detemir (Levemir) 13 unit SUBCUT DAILY COUNTS INCLUDE 234 BEDS AT [facility] Last Admin: 02/18/18 08:05 Dose: 13 units Lactobacillus Acidophilus/Rhamnosus (Multi-Lina Plus) 1 cap PO DAILY COUNTS INCLUDE 234 BEDS AT [facility] Last Admin: 02/18/18 08:00 Dose: 1 cap Liraglutide (Victoza) 1.8 mg SUBCUT DAILY COUNTS INCLUDE 234 BEDS AT [facility] Last Admin: 02/18/18 08:07 Dose: 1.8 mg Losartan Potassium (Cozaar) 25 mg PO DAILY COUNTS INCLUDE 234 BEDS AT [facility] Last Admin: 02/18/18 08:03 Dose: 25 mg Magnesium Hydroxide (Milk Of Magnesia) 30 ml PO DAILY PRN PRN Reason: Constipation Metformin HCl (Glucophage) 1,000 mg PO BIDMEALS COUNTS INCLUDE 234 BEDS AT [facility] Last Admin: 02/18/18 07:59 Dose: 1,000 mg Multivitamins/Minerals (Centrum) 1 tab PO DAILY COUNTS INCLUDE 234 BEDS AT [facility] Last Admin: 02/18/18 08:01 Dose: 1 tab Nystatin (Nystop) 1 gm TOP BID COUNTS INCLUDE 234 BEDS AT [facility] Last Admin: 02/18/18 08:06 Dose: 1 applic Omeprazole (Omeprazole) 20 mg PO ACBREAKFAST COUNTS INCLUDE 234 BEDS AT [facility] Last Admin: 02/18/18 07:15 Dose: 20 mg Polyethylene Glycol (Miralax) 17 gm PO DAILY PRN PRN Reason: Constipation Potassium Chloride (Klor-Con 10) 10 meq PO BID COUNTS INCLUDE 234 BEDS AT [facility] Last Admin: 02/18/18 08:01 Dose: 10 meq Rosuvastatin Calcium (Crestor) 2.5 mg PO DAILY COUNTS INCLUDE 234 BEDS AT [facility] Last Admin: 02/18/18 08:00 Dose: 2.5 mg Sodium Chloride (Saline Flush) 10 ml FLUSH Q18H COUNTS INCLUDE 234 BEDS AT [facility] Last Admin: 02/17/18 23:50 Dose: 10 ml Sodium Chloride (Saline Flush) 10 ml FLUSH Q18H COUNTS INCLUDE 234 BEDS AT [facility] Last Admin: 02/18/18 02:43 Dose: 10 ml Tramadol HCl (Ultram) 50 - 100 mg PO Q6H PRN PRN Reason: Pain Last Admin: 02/17/18 20:06 Dose: 50 mg Vancomycin HCl (Pharmacy To Dose - Vancomycin) 0 dose .XX ASDIRECTED COUNTS INCLUDE 234 BEDS AT THE [facility] Discontinued Medications Alteplase, Recombinant (Cathflo Activase) 2 mg IVPUSH ONETIME ONE Stop: 01/24/18 14:11 Last Admin: 01/24/18 14:18 Dose: 2 mg Alteplase, Recombinant (Cathflo Activase) 2 mg IVPUSH ONETIME ONE Stop: 01/31/18 09:31 Last Admin: 01/31/18 13:11 Dose: 2 mg Alteplase, Recombinant (Cathflo Activase) 2 mg IV ONETIME ONE Stop: 01/31/18 13:46 Last Admin: 01/31/18 13:11 Dose: 2 mg Diphenhydramine HCl (Benadryl) 25 mg PO Q12H COUNTS INCLUDE 234 BEDS AT [facility] Last Admin: 01/23/18 11:44 Dose: Not Given Diphenhydramine HCl (Benadryl) 25 mg PO 0730,1930 COUNTS INCLUDE 234 BEDS AT [facility] Last Admin: 01/25/18 13:59 Dose: 25 mg Diphenhydramine HCl (Benadryl) 25 mg PO Q18H COUNTS INCLUDE 234 BEDS AT [facility] Last Admin: 01/29/18 08:48 Dose: Not Given Vancomycin HCl 2 gm/ Sodium (Chloride) 540 mls @ 166 mls/hr IV Q12H COUNTS INCLUDE 234 BEDS AT [facility] Last Admin: 01/23/18 11:43 Dose: Not Given Sodium Chloride (Normal Saline) Confirm Administered Dose 100 mls @ as directed .ROUTE .STK-MED ONE Stop: 01/22/18 19:26 Last Admin: 01/22/18 19:55 Dose: 25 mls/hr Vancomycin HCl 1.5 gm/ Sodium (Chloride) 250 mls @ 100 mls/hr IV Q12H COUNTS INCLUDE 234 BEDS AT THE [facility] Vancomycin HCl 1.5 gm/ Sodium (Chloride) 280 mls @ 112 mls/hr IV Q12H COUNTS INCLUDE 234 BEDS AT THE [facility] Last Admin: 01/25/18 07:52 Dose: Not Given Vancomycin HCl 1.5 gm/ Sodium (Chloride) 280 mls @ 112 mls/hr IV Q18H COUNTS INCLUDE 234 BEDS AT [facility] Last Admin: 01/28/18 18:35 Dose: Not Given Sodium Chloride (Normal Saline) 50 mls @ 25 mls/hr IV DAILY COUNTS INCLUDE 234 BEDS AT [facility] Sodium Chloride (Normal Saline) Confirm Administered Dose 50 mls @ as directed .ROUTE .[facility] ONE Stop: 01/30/18 07:33 Last Admin: 01/30/18 09:01 Dose: 30 mls/hr Sodium Chloride (Normal Saline) 100 mls @ 25 mls/hr IV DAILY COUNTS INCLUDE 234 BEDS AT [facility] Last Admin: 02/01/18 12:51 Dose: 25 mls/hr Sodium Chloride (Normal Saline) Confirm Administered Dose 100 mls @ as directed .ROUTE [email or web address] ONE Stop: 01/31/18 00:08 Last Admin: 01/31/18 01:15 Dose: Not Given Sodium Chloride (Normal Saline) Confirm Administered Dose 50 mls @ as directed .ROUTE [email or web address] ONE Stop: 01/31/18 19:15 Last Admin: 01/31/18 19:32 Dose: Not Given Rosuvastatin Calcium (Crestor) 2.5 mg PO DAILY COUNTS INCLUDE 234 BEDS AT [facility] Last Admin: 01/24/18 08:31 Dose: 2.5 mg Sodium Chloride (Saline Flush) 10 ml FLUSH BID@0630,1830 COUNTS INCLUDE 234 BEDS AT [facility] Last Admin: 01/23/18 11:43 Dose: Not Given Sodium Chloride (Saline Flush) 10 ml FLUSH 0800,1030,2000,2230 COUNTS INCLUDE 234 BEDS AT [facility] Last Admin: 01/25/18 10:20 Dose: Not Given Sodium Chloride (Saline Flush) 10 ml FLUSH Q18H COUNTS INCLUDE 234 BEDS AT [facility] Last Admin: 01/29/18 08:48 Dose: Not Given Sodium Chloride (Saline Flush) 10 ml IV Q18H COUNTS INCLUDE 234 BEDS AT [facility] Last Admin: 01/28/18 21:26 Dose: 10 ml Sodium Chloride (Saline Flush) 10 ml FLUSH Q18H COUNTS INCLUDE 234 BEDS AT [facility] Last Admin: 01/31/18 03:25 Dose: 10 ml Sodium Chloride (Saline Flush) 10 ml IV Q18H COUNTS INCLUDE 234 BEDS AT [facility] Last Admin: 01/31/18 03:43 Dose: Not Given Sodium Chloride (Saline Flush) 10 ml FLUSH Q18H COUNTS INCLUDE 234 BEDS AT [facility] Last Admin: 01/31/18 17:18 Dose: Not Given Sodium Chloride (Saline Flush) 10 ml FLUSH Q18H COUNTS INCLUDE 234 BEDS AT [facility] Last Admin: 02/07/18 15:10 Dose: 10 ml - Exam Quality Assessment: DVT Prophylaxis (Lovenox). No: Supplemental Oxygen General: Alert, Oriented, Cooperative, No Acute Distress Lungs: Clear to Auscultation, Normal Respiratory Effort Cardiovascular: Regular Rate, Regular Rhythm, No Murmurs GI/Abdominal Exam: Normal Bowel Sounds, Soft, Non-Tender Extremities: No Pedal Edema Skin: Warm, Dry Wound/Incisions: Other (Left foot incision: lateral aspect approximate 3 cm opening with good granulation tissue present, pink in color with scant serous drainage; edges approximated throughout rest of incision without erythema or drainage. ) Neurological: Normal Speech Psy/Mental Status: Alert, Normal Affect, Normal Mood - Problem List Review Problem List Initiated/Reviewed/Updated: Yes - My Orders Last 24 Hours: My Active Orders 02/19/18 11:00 BASIC METABOLIC PANEL,BMP [CHEM] Routine CBC W/O DIFF,HEMOGRAM [HEME] Timed - Plan Plan:: HPI: This is a 57 year old male who is status post left TMA on 01/18/[address] Juarez at [facility]. He was admitted here for physical therapy, IV antibiotics, and wound care. He has a PICC line in place. He continues to follow with infectious disease and podiatry in [place] and via telemedicine. Primary Assessment: -Status post left foot transmetatarsal amputation (TMA) with wound dehiscence/ open wound -MRSA positive -Debility Plan: -Continue IV vancomycin for approximately 2 more weeks with careful trough monitoring -Continue daily betadine dressing changes -Continue with physical therapy and heel weight bearing (noted in podiatry note from 02/06/18) -Continue diphenhydramine prior to vancomycin infusions -Continue tylenol and tramadol PRN -Continue probiotic -Continue lovenox for DVT prophylaxis -CBC without diff with labs on 02/19/18. Chronic, stable problems: -Hypertension. Continue current medication regimen. -GERD. Continue omeprazole. -Type 2 diabetes mellitus with diabetic polyneuropathy. Recent glucose levels of 120 and 130. Continue current oral and insulin regimen. -Hyperlipidemia. Continue crestor and ASA. -Electrolyte and vitamin deficiencies. Continue potassium and Ca/D. BMP with labs on 02/19/18. -Obesity with BMI 30.0-39.9. 1800 calorie ADA diet. -Anxiety. Continue lexapro. -Constipation. Continue miralax. Hospitalization details: -Code Status: Full Code -Emergency Contact: Sister -Disposition: Continue in swing bed status with physical therapy and heel weight bearing on left. Continue IV vancomycin and daily dressing changes. He will be seen on 02/25/[address] Juarez for re-evaluation.
[2018-02-18] MEDS: Enoxaparin 40 MG/0.4 ML Syringe SUBCUT SCH (12:08)
[2018-02-18] MEDS: traMADol 50 MG Tab PO PRN (14:14)
[2018-02-18] MEDS: diphenhydrAMINE 25 MG Cap PO SCH (17:00)
[2018-02-19] MEDS ORDERED: Nystatin Topical Powder 15 GM Bottle TOP PRN (05:20)
[2018-02-19] MEDS: Omeprazole 20 MG Cap.CR PO SCH (07:26)
[2018-02-19] MEDS: Calcium Citrate/Vitamin D3 315 MG-250 Unit Tab PO SCH ×2 (08:35→18:15)
[2018-02-19] MEDS: Insulin Aspart 100 Units/ML 3 ML Pen SUBCUT SCH ×3 (08:36→18:16)
[2018-02-19] MEDS: metFORMIN 500 MG Tab PO SCH ×2 (08:36→18:16)
[2018-02-19] MEDS: Multivitamins with Minerals/Iron/Folic Acid/Lycopene Tab PO SCH (09:24)
[2018-02-19] MEDS: Aspirin 325 MG Tab.EC PO SCH (09:25)
[2018-02-19] MEDS: Rosuvastatin 5 MG Tab PO SCH (09:25)
[2018-02-19] MEDS: B.Bifidum/B.Longum/L.Acidophilus/L.Rhamnosus (Probiotic) Cap PO SCH (09:26)
[2018-02-19] MEDS: Losartan 25 MG Tab PO SCH (09:26)
[2018-02-19] MEDS: Hydrochlorothiazide 25 MG Tab PO SCH (09:26)
[2018-02-19] MEDS: Potassium Chloride 10 MEQ Tab.ER PO SCH ×2 (09:27→20:54)
[2018-02-19] MEDS: Escitalopram 10 MG Tab PO SCH (09:27)
[2018-02-19] MEDS: Acetaminophen 325 MG Tab PO SCH ×3 (09:28→20:54)
[2018-02-19] MEDS: Insulin Detemir 100 Units/ML 3 ML Pen SUBCUT SCH (09:29)
[2018-02-19] MEDS: Liraglutide (rDNA Origin) 0.6 MG/0.1 ML 3 ML Pen SUBCUT SCH (09:29)
[2018-02-19 12:27] LABS: CHLORIDE,CL 100 mmol/L (98-115); SODIUM,NA 134 mmol/L (136-145)
[2018-02-19] MEDS: diphenhydrAMINE 25 MG Cap PO SCH (14:38)
[2018-02-19] MEDS: traMADol 50 MG Tab PO PRN (15:28)
[2018-02-19] MEDS: Sodium Chloride 0.9% 10 ML Syringe FLUSH SCH ×2 (15:30→19:30)
[2018-02-19] MEDS: Nystatin Topical Powder 15 GM Bottle TOP SCH (16:40)
[2018-02-20] MEDS: diphenhydrAMINE 25 MG Cap PO SCH ×2 (06:26→23:36)
[2018-02-20] MEDS: Sodium Chloride 0.9% 10 ML Syringe FLUSH SCH ×3 (06:59→10:45)
[2018-02-20] MEDS: Omeprazole 20 MG Cap.CR PO SCH (07:56)
[2018-02-20] MEDS: Insulin Aspart 100 Units/ML 3 ML Pen SUBCUT SCH ×3 (07:56→18:32)
[2018-02-20] MEDS: metFORMIN 500 MG Tab PO SCH ×2 (07:56→18:07)
[2018-02-20] MEDS: Calcium Citrate/Vitamin D3 315 MG-250 Unit Tab PO SCH ×2 (07:56→18:07)
[2018-02-20] MEDS: Insulin Detemir 100 Units/ML 3 ML Pen SUBCUT SCH (08:00)
[2018-02-20] MEDS: B.Bifidum/B.Longum/L.Acidophilus/L.Rhamnosus (Probiotic) Cap PO SCH (08:01)
[2018-02-20] MEDS: Liraglutide (rDNA Origin) 0.6 MG/0.1 ML 3 ML Pen SUBCUT SCH (08:01)
[2018-02-20] MEDS: Losartan 25 MG Tab PO SCH (08:01)
[2018-02-20] MEDS: Hydrochlorothiazide 25 MG Tab PO SCH (08:02)
[2018-02-20] MEDS: Multivitamins with Minerals/Iron/Folic Acid/Lycopene Tab PO SCH (08:02)
[2018-02-20] MEDS: Aspirin 325 MG Tab.EC PO SCH (08:02)
[2018-02-20] MEDS: Potassium Chloride 10 MEQ Tab.ER PO SCH ×2 (08:02→20:33)
[2018-02-20] MEDS: Escitalopram 10 MG Tab PO SCH (08:02)
[2018-02-20] MEDS: Rosuvastatin 5 MG Tab PO SCH (08:03)
[2018-02-20] MEDS: Acetaminophen 325 MG Tab PO SCH ×3 (08:04→20:33)
[2018-02-20] MEDS: Sodium Chloride 0.9% 50 ML IV SCH (10:44)
[2018-02-20] MEDS: traMADol 50 MG Tab PO PRN ×2 (12:04→18:13)
[2018-02-20] MEDS ORDERED: CAPSAICIN 0.025% TOP PRN (16:26)
[2018-02-20] MEDS ORDERED: Ketorolac 60 MG/2 ML SDV IM ONE (17:11)
[2018-02-20] MEDS: Ondansetron 4 MG Tab.DIS PO PRN (19:07)
[2018-02-20] MEDS: Acetaminophen/HYDROcodone 325-5 MG Tab PO PRN (19:07)
[2018-02-20] MEDS ORDERED: Ketorolac 30 MG/ML SDV ONE (20:28)
[2018-02-20] MEDS: Ketorolac 30 MG/ML SDV IVPUSH PRN (20:35)
[2018-02-21] MEDS: Sodium Chloride 0.9% 10 ML Syringe FLUSH SCH ×4 (00:10→21:07)
[2018-02-21] MEDS: Sodium Chloride 0.9% 50 ML IV SCH ×2 (00:15→09:23)
[2018-02-21] MEDS: Acetaminophen/HYDROcodone 325-5 MG Tab PO PRN ×2 (00:18→07:16)
[2018-02-21] MEDS: traMADol 50 MG Tab PO PRN (06:08)
[2018-02-21] MEDS: Omeprazole 20 MG Cap.CR PO SCH (07:17)
[2018-02-21] MEDS: metFORMIN 500 MG Tab PO SCH ×2 (08:05→18:12)
[2018-02-21] MEDS: Calcium Citrate/Vitamin D3 315 MG-250 Unit Tab PO SCH ×2 (08:05→18:12)
[2018-02-21] MEDS: Insulin Aspart 100 Units/ML 3 ML Pen SUBCUT SCH ×3 (08:06→18:12)
[2018-02-21] MEDS: Potassium Chloride 10 MEQ Tab.ER PO SCH ×2 (08:52→20:30)
[2018-02-21] MEDS: Rosuvastatin 5 MG Tab PO SCH (08:52)
[2018-02-21] MEDS: B.Bifidum/B.Longum/L.Acidophilus/L.Rhamnosus (Probiotic) Cap PO SCH (08:57)
[2018-02-21] MEDS: Losartan 25 MG Tab PO SCH (09:06)
[2018-02-21] MEDS: Multivitamins with Minerals/Iron/Folic Acid/Lycopene Tab PO SCH (09:06)
[2018-02-21] MEDS: Aspirin 325 MG Tab.EC PO SCH (09:07)
[2018-02-21] MEDS: Hydrochlorothiazide 25 MG Tab PO SCH (09:07)
[2018-02-21] MEDS: Escitalopram 10 MG Tab PO SCH (09:07)
[2018-02-21] MEDS: Acetaminophen 325 MG Tab PO SCH ×3 (09:08→20:30)
[2018-02-21] MEDS: Insulin Detemir 100 Units/ML 3 ML Pen SUBCUT SCH (09:08)
[2018-02-21] MEDS: Liraglutide (rDNA Origin) 0.6 MG/0.1 ML 3 ML Pen SUBCUT SCH (09:11)
[2018-02-21] MEDS ORDERED: Capsaicin 0.025% Crm 60 GM Tube TOP PRN (09:45)
--- NOTE | 2018-02-21 09:57 | PCM.PN ---
- General Info Date of Service: 02/21/18 Functional Status: Reports: Tolerating Diet, New Symptoms (Right knee pain). Denies: Pain Controlled, Ambulating - Review of Systems General: Denies: Fever HEENT: Reports: No Symptoms Pulmonary: Reports: No Symptoms Cardiovascular: Reports: No Symptoms Gastrointestinal: Reports: No Symptoms Genitourinary: Reports: No Symptoms Musculoskeletal: Reports: Joint Swelling (Right knee swelling and pain) Neurological: Reports: Difficulty Walking, Gait Disturbance. Denies: Confusion - Patient Data Vitals - Most Recent: Last Vital Signs Temp 98.0 F 02/21/18 06:11 Pulse 86 02/21/18 06:11 Resp 18 02/21/18 06:11 BP 123/82 02/21/18 09:06 Pulse Ox 97 02/21/18 06:11 Weight - Most Recent: 264 lb 5 oz I&O - Last 24 Hours: Intake & Output 02/20/18 02/21/18 02/21/18 22:59 06:59 14:59 Intake Total 600 455 Output Total 400 0 Balance 200 455 Lab Results Last 24 Hours: Laboratory Results - last 24 hr 02/20/18 02/20/18 02/20/18 Range/Units 11:45 17:34 20:41 POC Glucose 152 H 131 H 127 H (74-106) mg/dl 02/21/18 Range/Units 07:07 POC Glucose 115 H (74-106) mg/dl Med Orders - Current: Current Medications Acetaminophen (Tylenol) 650 mg PO TID [facility] Last Admin: 02/21/18 09:08 Dose: Not Given Hydrocodone Bitart/Acetaminophen ([place] 325-5 Mg) 1 - 2 tab PO Q4H PRN PRN Reason: Pain Last Admin: 02/21/18 07:16 Dose: 2 tab Aspirin (Ecotrin) 325 mg PO DAILY [facility] Last Admin: 02/21/18 09:07 Dose: 325 mg Calcium Citrate (Calcium Citrate + D) 2 tab PO BIDMEALS [facility] Last Admin: 02/21/18 08:05 Dose: 2 tab Capsaicin (Zostrix 0.025% Crm) 1 gm TOP QID PRN PRN Reason: Pain Diphenhydramine HCl (Benadryl) 25 mg PO Q18H [facility] Last Admin: 02/20/18 23:36 Dose: 25 mg Escitalopram Oxalate (Lexapro) 10 mg PO DAILY [facility] Last Admin: 02/21/18 09:07 Dose: 10 mg Hydrochlorothiazide (Hydrochlorothiazide) 25 mg PO DAILY [facility] Last Admin: 02/21/18 09:07 Dose: 25 mg Vancomycin HCl 1.5 gm/ Sodium (Chloride) 280 mls @ 112 mls/hr IV Q18H [facility] Last Admin: 02/21/18 00:13 Dose: 112 mls/hr Sodium Chloride (Normal Saline) 50 mls @ 12.5 mls/hr IV DAILY [facility] Last Admin: 02/21/18 09:23 Dose: Not Given Insulin Aspart (Novolog) 7 unit SUBCUT TIDMEALS [facility] Last Admin: 02/21/18 08:06 Dose: 7 units Insulin Detemir (Levemir) 13 unit SUBCUT DAILY [facility] Last Admin: 02/21/18 09:08 Dose: 13 units Ketorolac Tromethamine (Toradol) 15 mg IVPUSH Q6H PRN PRN Reason: Pain Stop: 02/25/18 23:01 Lactobacillus Acidophilus/Rhamnosus (Multi-Lina Plus) 1 cap PO DAILY [facility] Last Admin: 02/21/18 08:57 Dose: 1 cap Liraglutide (Victoza) 1.8 mg SUBCUT DAILY [facility] Last Admin: 02/21/18 09:11 Dose: 1.8 mg Losartan Potassium (Cozaar) 25 mg PO DAILY [facility] Last Admin: 02/21/18 09:06 Dose: 25 mg Magnesium Hydroxide (Milk Of Magnesia) 30 ml PO DAILY PRN PRN Reason: Constipation Metformin HCl (Glucophage) 1,000 mg PO BIDMEALS [facility] Last Admin: 02/21/18 08:05 Dose: 1,000 mg Multivitamins/Minerals (Centrum) 1 tab PO DAILY [facility] Last Admin: 02/21/18 09:06 Dose: 1 tab Nystatin (Nystop) 0 gm TOP BID PRN PRN Reason: Rash Omeprazole (Omeprazole) 20 mg PO ACBREAKFAST [facility] Last Admin: 02/21/18 07:17 Dose: 20 mg Ondansetron HCl (Zofran Odt) 4 mg PO Q6H PRN PRN Reason: Nausea/Vomiting Last Admin: 02/20/18 19:07 Dose: 4 mg Polyethylene Glycol (Miralax) 17 gm PO DAILY PRN PRN Reason: Constipation Potassium Chloride (Klor-Con 10) 10 meq PO BID [facility] Last Admin: 02/21/18 08:52 Dose: 10 meq Rosuvastatin Calcium (Crestor) 2.5 mg PO DAILY [facility] Last Admin: 02/21/18 08:52 Dose: 2.5 mg Sodium Chloride (Saline Flush) 10 ml FLUSH Q18H [facility] Last Admin: 02/21/18 00:10 Dose: 10 ml Sodium Chloride (Saline Flush) 10 ml FLUSH Q18H [facility] Last Admin: 02/21/18 03:08 Dose: 10 ml Tramadol HCl (Ultram) 50 - 100 mg PO Q6H PRN PRN Reason: Pain Last Admin: 02/21/18 06:08 Dose: 100 mg Vancomycin HCl (Pharmacy To Dose - Vancomycin) 0 dose .XX ASDIRECTED [facility] Discontinued Medications Alteplase, Recombinant (Cathflo Activase) 2 mg IVPUSH ONETIME ONE Stop: 01/24/18 14:11 Last Admin: 01/24/18 14:18 Dose: 2 mg Alteplase, Recombinant (Cathflo Activase) 2 mg IVPUSH ONETIME ONE Stop: 01/31/18 09:31 Last Admin: 01/31/18 13:11 Dose: 2 mg Alteplase, Recombinant (Cathflo Activase) 2 mg IV ONETIME ONE Stop: 01/31/18 13:46 Last Admin: 01/31/18 13:11 Dose: 2 mg Diphenhydramine HCl (Benadryl) 25 mg PO Q12H [facility] Last Admin: 01/23/18 11:44 Dose: Not Given Diphenhydramine HCl (Benadryl) 25 mg PO 0730,1930 [facility] Last Admin: 01/25/18 13:59 Dose: 25 mg Diphenhydramine HCl (Benadryl) 25 mg PO Q18H [facility] Last Admin: 01/29/18 08:48 Dose: Not Given Enoxaparin Sodium (Lovenox) 40 mg SUBCUT Q24H [facility] Last Admin: 02/18/18 12:08 Dose: 40 mg Vancomycin HCl 2 gm/ Sodium (Chloride) 540 mls @ 166 mls/hr IV Q12H [facility] Last Admin: 01/23/18 11:43 Dose: Not Given Sodium Chloride (Normal Saline) Confirm Administered Dose 100 mls @ as directed .ROUTE .STK-MED ONE Stop: 01/22/18 19:26 Last Admin: 01/22/18 19:55 Dose: 25 mls/hr Vancomycin HCl 1.5 gm/ Sodium (Chloride) 250 mls @ 100 mls/hr IV Q12H [facility] Vancomycin HCl 1.5 gm/ Sodium (Chloride) 280 mls @ 112 mls/hr IV Q12H [facility] Last Admin: 01/25/18 07:52 Dose: Not Given Vancomycin HCl 1.5 gm/ Sodium (Chloride) 280 mls @ 112 mls/hr IV Q18H [facility] Last Admin: 01/28/18 18:35 Dose: Not Given Sodium Chloride (Normal Saline) 50 mls @ 25 mls/hr IV DAILY [facility] Sodium Chloride (Normal Saline) Confirm Administered Dose 50 mls @ as directed .ROUTE .STK-MED ONE Stop: 01/30/18 07:33 Last Admin: 01/30/18 09:01 Dose: 30 mls/hr Sodium Chloride (Normal Saline) 100 mls @ 25 mls/hr IV DAILY [facility] Last Admin: 02/01/18 12:51 Dose: 25 mls/hr Sodium Chloride (Normal Saline) Confirm Administered Dose 100 mls @ as directed .ROUTE .STK-MED ONE Stop: 01/31/18 00:08 Last Admin: 01/31/18 01:15 Dose: Not Given Sodium Chloride (Normal Saline) Confirm Administered Dose 50 mls @ as directed .ROUTE .STK-MED ONE Stop: 01/31/18 19:15 Last Admin: 01/31/18 19:32 Dose: Not Given Ketorolac Tromethamine (Toradol) 60 mg IM ONETIME ONE Stop: 02/20/18 17:12 Last Admin: 02/20/18 17:29 Dose: 60 mg Ketorolac Tromethamine (Toradol) Confirm Administered Dose 30 mg .ROUTE .STK- MED ONE Stop: 02/20/18 20:29 Last Admin: 02/20/18 20:37 Dose: 30 mg NfCapsaicin (Cream 0.025% Cream) 1 each TOP QID PRN PRN Reason: Pain Last Admin: 02/20/18 16:30 Dose: 1 each Nystatin (Nystop) 1 gm TOP BID [facility] Last Admin: 02/19/18 16:40 Dose: Not Given Rosuvastatin Calcium (Crestor) 2.5 mg PO DAILY [facility] Last Admin: 01/24/18 08:31 Dose: 2.5 mg Sodium Chloride (Saline Flush) 10 ml FLUSH BID@0630,1830 [facility] Last Admin: 01/23/18 11:43 Dose: Not Given Sodium Chloride (Saline Flush) 10 ml FLUSH 0800,1030,2000,2230 [facility] Last Admin: 01/25/18 10:20 Dose: Not Given Sodium Chloride (Saline Flush) 10 ml FLUSH Q18H [facility] Last Admin: 01/29/18 08:48 Dose: Not Given Sodium Chloride (Saline Flush) 10 ml IV Q18H [facility] Last Admin: 01/28/18 21:26 Dose: 10 ml Sodium Chloride (Saline Flush) 10 ml FLUSH Q18H [facility] Last Admin: 01/31/18 03:25 Dose: 10 ml Sodium Chloride (Saline Flush) 10 ml IV Q18H [facility] Last Admin: 01/31/18 03:43 Dose: Not Given Sodium Chloride (Saline Flush) 10 ml FLUSH Q18H [facility] Last Admin: 01/31/18 17:18 Dose: Not Given Sodium Chloride (Saline Flush) 10 ml FLUSH Q18H [facility] Last Admin: 02/07/18 15:10 Dose: 10 ml Comments:: I was notified yesterday that the patient sustained a knee injury while performing physical therapy. Patient was on PT exercise equipment and upon squatting and flexing his knees he suddenly heard and felt a pop right knee medially with significant pain 10/10 medial aspect. Was not able to bear weight without pain. Ice, no weightbearing was ordered, Toradol and eventually hydrocodone and NSAID creams were applied until further evaluation. X-ray was taken immediately which demonstrates no acute process however does have degenerative changes in the lateral patellofemoral compartments. - Exam Quality Assessment: No: Supplemental Oxygen General: Alert, Oriented, Mild Distress Extremities: Other (Right knee, significant tenderness medial patella, no laxity , generalized effusion surrounding medial patellar, negative anterior posterior drawers, slight tenderness on varus stress, no crepitus, no ballottement). No: Pedal Edema, Increased Warmth, Redness Peripheral Pulses: 2+: Popliteal (R) Wound/Incisions: Dressing Dry and Intact (Dressing left foot) Neurological: Normal Speech Psy/Mental Status: Anxious - Problem List Review Problem List Initiated/Reviewed/Updated: Yes - My Orders Last 24 Hours: My Active Orders 02/20/18 18:38 Acetaminophen/HYDROcodone [[place] 325-5 MG] 1 - 2 tab PO Q4H PRN 02/20/18 18:41 Ondansetron [Zofran ODT] 4 mg PO Q6H PRN 02/20/18 18:42 LUAN Bandage [Elastic Wrap] [OM.PC] Routine 02/20/18 18:44 Weight bearing status [OM.PC] Routine 02/20/18 23:00 Ketorolac [Toradol] 15 mg IVPUSH Q6H PRN 02/21/18 09:45 Capsaicin [Zostrix 0.025% Crm] 1 gm TOP QID PRN 02/21/18 16:30 Knee wo Cont Rt [MR] Routine - Plan Plan:: HPI: This is a 57 year old male who is status post left TMA on 01/18/[address] Juarez at [facility]. He was admitted here for physical therapy, IV antibiotics, and wound care. He has a PICC line in place. He continues to follow with infectious disease and podiatry in [place] and via telemedicine. New problem, I was notified by nurses on February 20, that the patient sustained a knee injury while performing physical therapy. Patient was on PT exercise equipment and upon squatting and flexing his knees he suddenly heard and felt a pop right knee medially with significant pain 10/10 medial aspect and some swelling. Was not able to bear weight without pain. Ice, no weightbearing was ordered, Toradol and eventually hydrocodone and NSAID creams were applied until further evaluation. X-ray was taken immediately which demonstrates no acute process however does have degenerative changes in the lateral patellofemoral compartments. On examination this morning of Right knee, tenderness medial patella, no laxity , generalized effusion surrounding medial patellar, negative anterior/posterior drawers, slight tenderness on varus stress, no crepitus, no ballottement, no palpable posterior cyst, popliteal pulses palpable, able to move against gravity but with pain. Primary Assessment: -Rule out deranged knee, possible MCL or meniscus injury, MRI today, pain control measures, ice -Status post left foot transmetatarsal amputation (TMA) with wound dehiscence/ open wound -MRSA positive -Debility Plan: -Continue IV vancomycin for approximately 2 more weeks with careful trough monitoring -Continue daily betadine dressing changes -Continue with physical therapy and heel weight bearing (noted in podiatry note from 02/06/18) -Continue diphenhydramine prior to vancomycin infusions -Continue tylenol and tramadol PRN -Continue probiotic -Continue lovenox for DVT prophylaxis -CBC without diff with labs on 02/19/18. Chronic, stable problems: -Hypertension. Continue current medication regimen. -GERD. Continue omeprazole. -Type 2 diabetes mellitus with diabetic polyneuropathy. Recent glucose levels of 120 and 130. Continue current oral and insulin regimen. -Hyperlipidemia. Continue crestor and ASA. -Electrolyte and vitamin deficiencies. Continue potassium and Ca/D. BMP with labs on 02/19/18. -Obesity with BMI 30.0-39.9. 1800 calorie ADA diet. -Anxiety. Continue lexapro. -Constipation. Continue miralax. Hospitalization details: -Code Status: Full Code -Emergency Contact: Sister -Disposition: MRI right knee today, ice, pain control measures. No weightbearing for now. Hold off on PT today until further evaluation of right knee. Continue IV vancomycin and daily dressing changes. He will be seen on 02/[address] Juarez for re-evaluation.
[2018-02-21] MEDS: Ketorolac 30 MG/ML SDV IVPUSH PRN (14:45)
[2018-02-21] MEDS: diphenhydrAMINE 25 MG Cap PO SCH (17:19)
[2018-02-22] MEDS: Omeprazole 20 MG Cap.CR PO SCH (07:40)
[2018-02-22] MEDS: Acetaminophen 325 MG Tab PO SCH ×4 (07:40→20:51)
[2018-02-22] MEDS: Calcium Citrate/Vitamin D3 315 MG-250 Unit Tab PO SCH ×2 (08:35→18:04)
[2018-02-22] MEDS: metFORMIN 500 MG Tab PO SCH ×2 (08:37→18:04)
[2018-02-22] MEDS: Potassium Chloride 10 MEQ Tab.ER PO SCH ×2 (08:38→20:51)
[2018-02-22] MEDS: Insulin Aspart 100 Units/ML 3 ML Pen SUBCUT SCH ×3 (08:38→18:05)
[2018-02-22] MEDS: Rosuvastatin 5 MG Tab PO SCH (08:40)
[2018-02-22] MEDS: Losartan 25 MG Tab PO SCH (08:41)
[2018-02-22] MEDS: Escitalopram 10 MG Tab PO SCH (08:42)
[2018-02-22] MEDS: Aspirin 325 MG Tab.EC PO SCH (08:42)
[2018-02-22] MEDS: Hydrochlorothiazide 25 MG Tab PO SCH (08:43)
[2018-02-22] MEDS: Multivitamins with Minerals/Iron/Folic Acid/Lycopene Tab PO SCH (08:43)
[2018-02-22] MEDS: B.Bifidum/B.Longum/L.Acidophilus/L.Rhamnosus (Probiotic) Cap PO SCH (08:43)
[2018-02-22] MEDS: Sodium Chloride 0.9% 50 ML IV SCH ×2 (08:44→11:44)
[2018-02-22] MEDS: Insulin Detemir 100 Units/ML 3 ML Pen SUBCUT SCH (08:46)
[2018-02-22] MEDS: Liraglutide (rDNA Origin) 0.6 MG/0.1 ML 3 ML Pen SUBCUT SCH (08:47)
[2018-02-22] MEDS: diphenhydrAMINE 25 MG Cap PO SCH (11:00)
[2018-02-22] MEDS: Acetaminophen/HYDROcodone 325-5 MG Tab PO PRN (11:42)
[2018-02-22] MEDS: Sodium Chloride 0.9% 10 ML Syringe FLUSH SCH ×2 (11:44→14:36)
[2018-02-22] MEDS: Capsaicin 0.025% Crm 60 GM Tube TOP SCH ×2 (14:29→20:52)
[2018-02-23] MEDS: diphenhydrAMINE 25 MG Cap PO SCH ×2 (05:36→23:31)
[2018-02-23] MEDS: Sodium Chloride 0.9% 10 ML Syringe FLUSH SCH ×2 (05:38→09:26)
[2018-02-23] MEDS: Calcium Citrate/Vitamin D3 315 MG-250 Unit Tab PO SCH ×2 (07:38→17:46)
[2018-02-23] MEDS: Omeprazole 20 MG Cap.CR PO SCH (07:38)
[2018-02-23] MEDS: metFORMIN 500 MG Tab PO SCH ×2 (07:38→17:46)
[2018-02-23] MEDS: Insulin Aspart 100 Units/ML 3 ML Pen SUBCUT SCH ×3 (08:00→17:45)
[2018-02-23] MEDS: Insulin Detemir 100 Units/ML 3 ML Pen SUBCUT SCH (08:00)
[2018-02-23] MEDS: Liraglutide (rDNA Origin) 0.6 MG/0.1 ML 3 ML Pen SUBCUT SCH (08:00)
[2018-02-23] MEDS: Escitalopram 10 MG Tab PO SCH (08:01)
[2018-02-23] MEDS: Acetaminophen 325 MG Tab PO SCH ×3 (08:01→20:47)
[2018-02-23] MEDS: B.Bifidum/B.Longum/L.Acidophilus/L.Rhamnosus (Probiotic) Cap PO SCH (08:01)
[2018-02-23] MEDS: Potassium Chloride 10 MEQ Tab.ER PO SCH ×2 (08:01→20:47)
[2018-02-23] MEDS: Hydrochlorothiazide 25 MG Tab PO SCH (08:01)
[2018-02-23] MEDS: Aspirin 325 MG Tab.EC PO SCH (08:01)
[2018-02-23] MEDS: Multivitamins with Minerals/Iron/Folic Acid/Lycopene Tab PO SCH (08:02)
[2018-02-23] MEDS: Rosuvastatin 5 MG Tab PO SCH (08:02)
[2018-02-23] MEDS: Losartan 25 MG Tab PO SCH (08:04)
[2018-02-23] MEDS: Capsaicin 0.025% Crm 60 GM Tube TOP SCH ×3 (08:09→20:48)
[2018-02-23] MEDS: Sodium Chloride 0.9% 50 ML IV SCH (09:25)
[2018-02-24] MEDS: Sodium Chloride 0.9% 10 ML Syringe FLUSH SCH ×4 (00:03→21:45)
[2018-02-24] MEDS: Sodium Chloride 0.9% 50 ML IV SCH ×2 (00:04→08:55)
[2018-02-24] MEDS: Omeprazole 20 MG Cap.CR PO SCH (07:36)
[2018-02-24] MEDS: metFORMIN 500 MG Tab PO SCH ×2 (07:36→17:45)
[2018-02-24] MEDS: Calcium Citrate/Vitamin D3 315 MG-250 Unit Tab PO SCH ×2 (07:36→17:45)
[2018-02-24] MEDS: Aspirin 325 MG Tab.EC PO SCH (08:06)
[2018-02-24] MEDS: Acetaminophen 325 MG Tab PO SCH ×3 (08:06→21:53)
[2018-02-24] MEDS: Escitalopram 10 MG Tab PO SCH (08:06)
[2018-02-24] MEDS: B.Bifidum/B.Longum/L.Acidophilus/L.Rhamnosus (Probiotic) Cap PO SCH (08:06)
[2018-02-24] MEDS: Multivitamins with Minerals/Iron/Folic Acid/Lycopene Tab PO SCH (08:06)
[2018-02-24] MEDS: Losartan 25 MG Tab PO SCH (08:07)
[2018-02-24] MEDS: Potassium Chloride 10 MEQ Tab.ER PO SCH ×2 (08:07→21:52)
[2018-02-24] MEDS: Rosuvastatin 5 MG Tab PO SCH (08:07)
[2018-02-24] MEDS: Hydrochlorothiazide 25 MG Tab PO SCH (08:07)
[2018-02-24] MEDS: Liraglutide (rDNA Origin) 0.6 MG/0.1 ML 3 ML Pen SUBCUT SCH (08:08)
[2018-02-24] MEDS: Insulin Detemir 100 Units/ML 3 ML Pen SUBCUT SCH (08:08)
[2018-02-24] MEDS: Capsaicin 0.025% Crm 60 GM Tube TOP SCH ×3 (08:09→21:53)
[2018-02-24] MEDS: Insulin Aspart 100 Units/ML 3 ML Pen SUBCUT SCH ×3 (08:09→17:46)
[2018-02-24] MEDS: diphenhydrAMINE 25 MG Cap PO SCH (17:33)
[2018-02-25] MEDS: Sodium Chloride 0.9% 10 ML Syringe FLUSH SCH ×4 (06:00→15:10)
[2018-02-25] MEDS: diphenhydrAMINE 25 MG Cap PO SCH ×2 (06:12→12:51)
[2018-02-25] MEDS: Omeprazole 20 MG Cap.CR PO SCH (07:36)
[2018-02-25] MEDS: metFORMIN 500 MG Tab PO SCH ×2 (08:06→18:09)
[2018-02-25] MEDS: Rosuvastatin 5 MG Tab PO SCH (08:06)
[2018-02-25] MEDS: Aspirin 325 MG Tab.EC PO SCH (08:07)
[2018-02-25] MEDS: Calcium Citrate/Vitamin D3 315 MG-250 Unit Tab PO SCH ×2 (08:07→18:09)
[2018-02-25] MEDS: Escitalopram 10 MG Tab PO SCH (08:08)
[2018-02-25] MEDS: B.Bifidum/B.Longum/L.Acidophilus/L.Rhamnosus (Probiotic) Cap PO SCH (08:08)
[2018-02-25] MEDS: Acetaminophen 325 MG Tab PO SCH ×3 (08:09→21:41)
[2018-02-25] MEDS: Multivitamins with Minerals/Iron/Folic Acid/Lycopene Tab PO SCH (08:09)
[2018-02-25] MEDS: Hydrochlorothiazide 25 MG Tab PO SCH (08:09)
[2018-02-25] MEDS: Losartan 25 MG Tab PO SCH (08:10)
[2018-02-25] MEDS: Potassium Chloride 10 MEQ Tab.ER PO SCH ×2 (08:10→21:40)
[2018-02-25] MEDS: Insulin Aspart 100 Units/ML 3 ML Pen SUBCUT SCH ×3 (08:13→18:10)
[2018-02-25] MEDS: Insulin Detemir 100 Units/ML 3 ML Pen SUBCUT SCH (08:14)
[2018-02-25] MEDS: Liraglutide (rDNA Origin) 0.6 MG/0.1 ML 3 ML Pen SUBCUT SCH (08:15)
[2018-02-25] MEDS: Capsaicin 0.025% Crm 60 GM Tube TOP SCH ×3 (08:18→21:42)
[2018-02-25] MEDS: Sodium Chloride 0.9% 50 ML IV SCH (09:59)
[2018-02-26] MEDS: diphenhydrAMINE 25 MG Cap PO SCH ×2 (05:20→23:30)
[2018-02-26] MEDS: Sodium Chloride 0.9% 50 ML IV SCH ×2 (05:40→09:48)
[2018-02-26] MEDS: Sodium Chloride 0.9% 10 ML Syringe FLUSH SCH ×2 (05:43→08:17)
[2018-02-26] MEDS: Acetaminophen 325 MG Tab PO SCH ×3 (08:01→20:40)
[2018-02-26] MEDS: B.Bifidum/B.Longum/L.Acidophilus/L.Rhamnosus (Probiotic) Cap PO SCH (08:01)
[2018-02-26] MEDS: Omeprazole 20 MG Cap.CR PO SCH (08:01)
[2018-02-26] MEDS: Calcium Citrate/Vitamin D3 315 MG-250 Unit Tab PO SCH ×2 (08:02→17:42)
[2018-02-26] MEDS: Rosuvastatin 5 MG Tab PO SCH (08:02)
[2018-02-26] MEDS: metFORMIN 500 MG Tab PO SCH ×2 (08:02→17:41)
[2018-02-26] MEDS: Insulin Aspart 100 Units/ML 3 ML Pen SUBCUT SCH ×3 (08:03→17:43)
[2018-02-26] MEDS: Losartan 25 MG Tab PO SCH (08:07)
[2018-02-26] MEDS: Escitalopram 10 MG Tab PO SCH (08:08)
[2018-02-26] MEDS: Multivitamins with Minerals/Iron/Folic Acid/Lycopene Tab PO SCH (08:08)
[2018-02-26] MEDS: Aspirin 325 MG Tab.EC PO SCH (08:09)
[2018-02-26] MEDS: Potassium Chloride 10 MEQ Tab.ER PO SCH ×2 (08:09→20:46)
[2018-02-26] MEDS: Hydrochlorothiazide 25 MG Tab PO SCH (08:09)
[2018-02-26] MEDS: Insulin Detemir 100 Units/ML 3 ML Pen SUBCUT SCH (08:10)
[2018-02-26] MEDS: Liraglutide (rDNA Origin) 0.6 MG/0.1 ML 3 ML Pen SUBCUT SCH (08:11)
[2018-02-26] MEDS: Capsaicin 0.025% Crm 60 GM Tube TOP SCH ×3 (09:48→20:46)
[2018-02-27] MEDS: Sodium Chloride 0.9% 10 ML Syringe FLUSH SCH ×3 (00:01→18:48)
[2018-02-27] MEDS: Omeprazole 20 MG Cap.CR PO SCH (06:37)
[2018-02-27] MEDS: metFORMIN 500 MG Tab PO SCH ×2 (08:16→18:08)
[2018-02-27] MEDS: Hydrochlorothiazide 25 MG Tab PO SCH (08:17)
[2018-02-27] MEDS: Rosuvastatin 5 MG Tab PO SCH (08:17)
[2018-02-27] MEDS: Aspirin 325 MG Tab.EC PO SCH (08:17)
[2018-02-27] MEDS: Escitalopram 10 MG Tab PO SCH (08:17)
[2018-02-27] MEDS: Potassium Chloride 10 MEQ Tab.ER PO SCH ×2 (08:17→20:53)
[2018-02-27] MEDS: Multivitamins with Minerals/Iron/Folic Acid/Lycopene Tab PO SCH (08:17)
[2018-02-27] MEDS: Calcium Citrate/Vitamin D3 315 MG-250 Unit Tab PO SCH ×2 (08:17→18:09)
[2018-02-27] MEDS: B.Bifidum/B.Longum/L.Acidophilus/L.Rhamnosus (Probiotic) Cap PO SCH (08:18)
[2018-02-27] MEDS: Insulin Detemir 100 Units/ML 3 ML Pen SUBCUT SCH (08:21)
[2018-02-27] MEDS: Insulin Aspart 100 Units/ML 3 ML Pen SUBCUT SCH ×3 (08:21→18:10)
[2018-02-27] MEDS: Liraglutide (rDNA Origin) 0.6 MG/0.1 ML 3 ML Pen SUBCUT SCH (08:22)
[2018-02-27] MEDS: Losartan 25 MG Tab PO SCH (08:24)
[2018-02-27] MEDS: Acetaminophen 325 MG Tab PO SCH ×3 (08:25→20:54)
[2018-02-27] MEDS: Capsaicin 0.025% Crm 60 GM Tube TOP SCH ×3 (08:26→20:55)
--- NOTE | 2018-02-27 10:14 | PCM.PN ---
- General Info Date of Service: 02/27/18 Functional Status: Reports: Pain Controlled, Tolerating Diet, Ambulating, Incentive Spirometry. Denies: New Symptoms - Review of Systems General: Reports: No Symptoms Pulmonary: Reports: No Symptoms Cardiovascular: Reports: No Symptoms Gastrointestinal: Reports: No Symptoms Genitourinary: Reports: No Symptoms Musculoskeletal: Reports: No Symptoms Neurological: Reports: No Symptoms Psychiatric: Reports: No Symptoms - Patient Data Vitals - Most Recent: Last Vital Signs Temp 98.5 F 02/27/18 06:15 Pulse 71 02/27/18 06:15 Resp 18 02/27/18 06:15 BP 115/71 02/27/18 08:24 Pulse Ox 98 02/27/18 06:15 Weight - Most Recent: 263 lb 7 oz I&O - Last 24 Hours: Intake & Output 02/26/18 02/27/18 02/27/18 22:59 06:59 14:59 Intake Total 530 475 Output Total 300 900 Balance 230 -425 Lab Results Last 24 Hours: Laboratory Results - last 24 hr 02/26/18 02/26/18 02/26/18 Range/Units 11:54 17:40 20:45 POC Glucose 156 H 149 H 115 H (74-106) mg/dl 02/27/18 Range/Units 07:34 POC Glucose 131 H (74-106) mg/dl Med Orders - Current: Current Medications Acetaminophen (Tylenol) 650 mg PO TID [facility] Last Admin: 02/27/18 08:25 Dose: 650 mg Hydrocodone Bitart/Acetaminophen ([place] 325-5 Mg) 1 - 2 tab PO Q4H PRN PRN Reason: Pain Last Admin: 02/22/18 11:42 Dose: 1 tab Aspirin (Ecotrin) 325 mg PO DAILY [facility] Last Admin: 02/27/18 08:17 Dose: 325 mg Calcium Citrate (Calcium Citrate + D) 2 tab PO BIDMEALS [facility] Last Admin: 02/27/18 08:17 Dose: 2 tab Capsaicin (Zostrix 0.025% Crm) 0 gm TOP TID [facility] Last Admin: 02/27/18 08:26 Dose: 1 applic Diphenhydramine HCl (Benadryl) 25 mg PO Q18H [facility] Last Admin: 02/26/18 23:30 Dose: 25 mg Escitalopram Oxalate (Lexapro) 10 mg PO DAILY [facility] Last Admin: 02/27/18 08:17 Dose: 10 mg Hydrochlorothiazide (Hydrochlorothiazide) 25 mg PO DAILY [facility] Last Admin: 02/27/18 08:17 Dose: 25 mg Vancomycin HCl 1.5 gm/ Sodium (Chloride) 280 mls @ 112 mls/hr IV Q18H [facility] Last Admin: 02/27/18 00:02 Dose: 112 mls/hr Sodium Chloride (Normal Saline) 50 mls @ 12.5 mls/hr IV DAILY [facility] Last Admin: 02/26/18 09:48 Dose: 12.5 mls/hr Insulin Aspart (Novolog) 7 unit SUBCUT TIDMEALS [facility] Last Admin: 02/27/18 08:21 Dose: 7 units Insulin Detemir (Levemir) 13 unit SUBCUT DAILY [facility] Last Admin: 02/27/18 08:21 Dose: 13 units Lactobacillus Acidophilus/Rhamnosus (Multi-Lina Plus) 1 cap PO DAILY [facility] Last Admin: 02/27/18 08:18 Dose: 1 cap Liraglutide (Victoza) 1.8 mg SUBCUT DAILY [facility] Last Admin: 02/27/18 08:22 Dose: 1.8 mg Losartan Potassium (Cozaar) 25 mg PO DAILY [facility] Last Admin: 02/27/18 08:24 Dose: 25 mg Magnesium Hydroxide (Milk Of Magnesia) 30 ml PO DAILY PRN PRN Reason: Constipation Metformin HCl (Glucophage) 1,000 mg PO BIDMEALS [facility] Last Admin: 02/27/18 08:16 Dose: 1,000 mg Multivitamins/Minerals (Centrum) 1 tab PO DAILY [facility] Last Admin: 02/27/18 08:17 Dose: 1 tab Nystatin (Nystop) 0 gm TOP BID PRN PRN Reason: Rash Last Admin: 02/25/18 21:44 Dose: 1 applic Omeprazole (Omeprazole) 20 mg PO ACBREAKFAST [facility] Last Admin: 02/27/18 06:37 Dose: 20 mg Ondansetron HCl (Zofran Odt) 4 mg PO Q6H PRN PRN Reason: Nausea/Vomiting Last Admin: 02/20/18 19:07 Dose: 4 mg Polyethylene Glycol (Miralax) 17 gm PO DAILY PRN PRN Reason: Constipation Potassium Chloride (Klor-Con 10) 10 meq PO BID [facility] Last Admin: 02/27/18 08:17 Dose: 10 meq Rosuvastatin Calcium (Crestor) 2.5 mg PO DAILY [facility] Last Admin: 02/27/18 08:17 Dose: 2.5 mg Senna/Docusate Sodium (Senna Plus) 1 tab PO DAILY [facility] Last Admin: 02/27/18 08:17 Dose: 1 tab Sodium Chloride (Saline Flush) 10 ml FLUSH Q18H [facility] Last Admin: 02/27/18 00:01 Dose: 10 ml Sodium Chloride (Saline Flush) 10 ml FLUSH Q18H [facility] Last Admin: 02/27/18 02:30 Dose: 10 ml Tramadol HCl (Ultram) 50 - 100 mg PO Q6H PRN PRN Reason: Pain Last Admin: 02/21/18 06:08 Dose: 100 mg Vancomycin HCl (Pharmacy To Dose - Vancomycin) 0 dose .XX ASDIRECTED [facility] Discontinued Medications Alteplase, Recombinant (Cathflo Activase) 2 mg IVPUSH ONETIME ONE Stop: 01/24/18 14:11 Last Admin: 01/24/18 14:18 Dose: 2 mg Alteplase, Recombinant (Cathflo Activase) 2 mg IVPUSH ONETIME ONE Stop: 01/31/18 09:31 Last Admin: 01/31/18 13:11 Dose: 2 mg Alteplase, Recombinant (Cathflo Activase) 2 mg IV ONETIME ONE Stop: 01/31/18 13:46 Last Admin: 01/31/18 13:11 Dose: 2 mg Capsaicin (Zostrix 0.025% Crm) 0 gm TOP QID PRN PRN Reason: Pain Last Admin: 02/22/18 08:49 Dose: 1 applic Diphenhydramine HCl (Benadryl) 25 mg PO Q12H [facility] Last Admin: 01/23/18 11:44 Dose: Not Given Diphenhydramine HCl (Benadryl) 25 mg PO 0730,1930 [facility] Last Admin: 01/25/18 13:59 Dose: 25 mg Diphenhydramine HCl (Benadryl) 25 mg PO Q18H [facility] Last Admin: 01/29/18 08:48 Dose: Not Given Enoxaparin Sodium (Lovenox) 40 mg SUBCUT Q24H [facility] Last Admin: 02/18/18 12:08 Dose: 40 mg Vancomycin HCl 2 gm/ Sodium (Chloride) 540 mls @ 166 mls/hr IV Q12H [facility] Last Admin: 01/23/18 11:43 Dose: Not Given Sodium Chloride (Normal Saline) Confirm Administered Dose 100 mls @ as directed .ROUTE .STK-MED ONE Stop: 01/22/18 19:26 Last Admin: 01/22/18 19:55 Dose: 25 mls/hr Vancomycin HCl 1.5 gm/ Sodium (Chloride) 250 mls @ 100 mls/hr IV Q12H [facility] Vancomycin HCl 1.5 gm/ Sodium (Chloride) 280 mls @ 112 mls/hr IV Q12H [facility] Last Admin: 01/25/18 07:52 Dose: Not Given Vancomycin HCl 1.5 gm/ Sodium (Chloride) 280 mls @ 112 mls/hr IV Q18H [facility] Last Admin: 01/28/18 18:35 Dose: Not Given Sodium Chloride (Normal Saline) 50 mls @ 25 mls/hr IV DAILY [facility] Sodium Chloride (Normal Saline) Confirm Administered Dose 50 mls @ as directed .ROUTE .STK-MED ONE Stop: 01/30/18 07:33 Last Admin: 01/30/18 09:01 Dose: 30 mls/hr Sodium Chloride (Normal Saline) 100 mls @ 25 mls/hr IV DAILY [facility] Last Admin: 02/01/18 12:51 Dose: 25 mls/hr Sodium Chloride (Normal Saline) Confirm Administered Dose 100 mls @ as directed .ROUTE .STK-MED ONE Stop: 01/31/18 00:08 Last Admin: 01/31/18 01:15 Dose: Not Given Sodium Chloride (Normal Saline) Confirm Administered Dose 50 mls @ as directed .ROUTE .STK-MED ONE Stop: 01/31/18 19:15 Last Admin: 01/31/18 19:32 Dose: Not Given Ketorolac Tromethamine (Toradol) 60 mg IM ONETIME ONE Stop: 02/20/18 17:12 Last Admin: 02/20/18 17:29 Dose: 60 mg Ketorolac Tromethamine (Toradol) 15 mg IVPUSH Q6H PRN PRN Reason: Pain Stop: 02/25/18 23:01 Last Admin: 02/21/18 14:45 Dose: 15 mg Ketorolac Tromethamine (Toradol) Confirm Administered Dose 30 mg .ROUTE .STK- MED ONE Stop: 02/20/18 20:29 Last Admin: 02/20/18 20:37 Dose: 30 mg NfCapsaicin (Cream 0.025% Cream) 1 each TOP QID PRN PRN Reason: Pain Last Admin: 02/20/18 16:30 Dose: 1 each Nystatin (Nystop) 1 gm TOP BID [facility] Last Admin: 02/19/18 16:40 Dose: Not Given Rosuvastatin Calcium (Crestor) 2.5 mg PO DAILY [facility] Last Admin: 01/24/18 08:31 Dose: 2.5 mg Sodium Chloride (Saline Flush) 10 ml FLUSH BID@0630,1830 [facility] Last Admin: 01/23/18 11:43 Dose: Not Given Sodium Chloride (Saline Flush) 10 ml FLUSH 0800,1030,2000,2230 [facility] Last Admin: 01/25/18 10:20 Dose: Not Given Sodium Chloride (Saline Flush) 10 ml FLUSH Q18H [facility] Last Admin: 01/29/18 08:48 Dose: Not Given Sodium Chloride (Saline Flush) 10 ml IV Q18H [facility] Last Admin: 01/28/18 21:26 Dose: 10 ml Sodium Chloride (Saline Flush) 10 ml FLUSH Q18H [facility] Last Admin: 01/31/18 03:25 Dose: 10 ml Sodium Chloride (Saline Flush) 10 ml IV Q18H [facility] Last Admin: 01/31/18 03:43 Dose: Not Given Sodium Chloride (Saline Flush) 10 ml FLUSH Q18H [facility] Last Admin: 01/31/18 17:18 Dose: Not Given Sodium Chloride (Saline Flush) 10 ml FLUSH Q18H [facility] Last Admin: 02/07/18 15:10 Dose: 10 ml - Exam Quality Assessment: No: Supplemental Oxygen General: Alert, Oriented Neck: Supple Lungs: Clear to Auscultation, Normal Respiratory Effort Cardiovascular: Regular Rate, Regular Rhythm GI/Abdominal Exam: No Distention Extremities: Non-Tender, Other (Left foot in offloading shoe) Skin: Dry, Intact Wound/Incisions: Dressing Dry and Intact Psy/Mental Status: Alert, Normal Affect, Normal Mood - Problem List Review Problem List Initiated/Reviewed/Updated: Yes - Plan Plan:: HPI: This is a 57 year old male who is status post left TMA on 01/18/[address] Juarez at [facility]. He was admitted here for physical therapy, IV antibiotics, and wound care. He has a PICC line in place. He continues to follow with infectious disease and podiatry in [place] and via telemedicine. Primary Assessment: -Status post left foot transmetatarsal amputation (TMA) with wound dehiscence/ open wound -MRSA positive -Debility Plan: -Continue IV vancomycin for approximately 2 more weeks with careful trough monitoring -Continue daily betadine dressing changes -Continue with physical therapy offloading boot -Continue diphenhydramine prior to vancomycin infusions -Continue tylenol and tramadol PRN -Continue probiotic -No longer needing DVT prophylaxis. Chronic, stable problems: -Hypertension. Continue current medication regimen. -GERD. Continue omeprazole. -Type 2 diabetes mellitus with diabetic polyneuropathy. Recent glucose levels of 120 and 130. Continue current oral and insulin regimen. -Hyperlipidemia. Continue crestor and ASA. -Electrolyte and vitamin deficiencies. Continue potassium and Ca/D. BMP with labs on 02/19/18. -Obesity with BMI 30.0-39.9. 1800 calorie ADA diet. -Anxiety. Continue lexapro. -Constipation. Continue miralax. Hospitalization details: -Code Status: Full Code -Emergency Contact: Sister
[2018-02-27] MEDS: Ondansetron 4 MG Tab.DIS PO PRN (14:21)
[2018-02-27 15:37] LABS: CHLORIDE,CL 99 mmol/L (98-115); SODIUM,NA 133 mmol/L (136-145)
--- NOTE | 2018-02-27 16:58 | PCM.SN ---
- Free Text/Narrative Note: S: Call received from nursing that patient had dizzy episode when coming back from physical therapy (see nursing note for full details). Shortly after getting the patient back to bed he went unresponsive and was not responding to painful stimuli (sternal rub). Dr. Ginger Song (in-house) was called to the bedside. Patient became more coherent and was answering questions appropriately. He was complaining of chest pain and left arm pain. EKG and labs were ordered. Patient has been resting in his room now with the lights off and a fan on. Upon entering the room, patient not responding right away but eventually waking up. He reports headache and dizziness with opening his eyes. He also notes photophobia and nausea. Denies ear pain, chest pain, shortness of breath, or weakness. Denies a history of migraines. O: Patient required sternal rub several times and saying his name before he would open his eyes at the beginning of the exam. Alert and oriented x 3, somewhat lethargic. CN II-XII grossly intact. PERRLA. TMs wnl. Oropharynx pink and moist. Heart rate & rhythm regular. Lung sounds clear throughout. BS active x 4 with tenderness to LUQ & LLQ. No edema. Strength equal and 5/5 to all extremities. A: Acute altered mental status Near syncopal episode. Question underlying vertigo. Rule out NM. P: Initial EKG revealed normal sinus rhythm at [address] segment changes. CBC and CMP unremarkable. Troponin <0.04. Head CT without contrast now. Repeat troponin in 6 hours to ensure no elevation. Orthostatic BPs. Neurochecks every 2 hours. Zofran as needed previously ordered and can continue. Meclizine 50 mg po TID PRN for dizziness.
[2018-02-27] MEDS ORDERED: Meclizine 25 MG Tab PO PRN (17:07)
[2018-02-27] MEDS: diphenhydrAMINE 25 MG Cap PO SCH (18:09)
[2018-02-27] MEDS: Sodium Chloride 0.9% 50 ML IV SCH (18:48)
[2018-02-28] MEDS: Omeprazole 20 MG Cap.CR PO SCH (07:43)
[2018-02-28] MEDS: Liraglutide (rDNA Origin) 0.6 MG/0.1 ML 3 ML Pen SUBCUT SCH (08:43)
[2018-02-28] MEDS: Capsaicin 0.025% Crm 60 GM Tube TOP SCH ×3 (08:43→21:07)
[2018-02-28] MEDS: Potassium Chloride 10 MEQ Tab.ER PO SCH ×2 (08:45→21:06)
[2018-02-28] MEDS: Rosuvastatin 5 MG Tab PO SCH (08:45)
[2018-02-28] MEDS: Escitalopram 10 MG Tab PO SCH (08:45)
[2018-02-28] MEDS: Aspirin 325 MG Tab.EC PO SCH (08:45)
[2018-02-28] MEDS: B.Bifidum/B.Longum/L.Acidophilus/L.Rhamnosus (Probiotic) Cap PO SCH (08:45)
[2018-02-28] MEDS: Insulin Aspart 100 Units/ML 3 ML Pen SUBCUT SCH ×3 (08:46→17:46)
[2018-02-28] MEDS: metFORMIN 500 MG Tab PO SCH ×2 (08:47→17:46)
[2018-02-28] MEDS: Calcium Citrate/Vitamin D3 315 MG-250 Unit Tab PO SCH ×2 (08:47→17:49)
[2018-02-28] MEDS: Acetaminophen 325 MG Tab PO SCH ×3 (08:48→21:05)
[2018-02-28] MEDS: Multivitamins with Minerals/Iron/Folic Acid/Lycopene Tab PO SCH (08:51)
[2018-02-28] MEDS: Insulin Detemir 100 Units/ML 3 ML Pen SUBCUT SCH (08:51)
[2018-02-28] MEDS: diphenhydrAMINE 25 MG Cap PO SCH (11:52)
[2018-02-28] MEDS: Sodium Chloride 0.9% 50 ML IV SCH (12:18)
[2018-02-28] MEDS: Sodium Chloride 0.9% 10 ML Syringe FLUSH SCH ×2 (12:21→16:01)
[2018-03-01] MEDS: diphenhydrAMINE 25 MG Cap PO SCH ×2 (05:26→23:30)
[2018-03-01] MEDS: Sodium Chloride 0.9% 10 ML Syringe FLUSH SCH ×3 (06:07→09:13)
[2018-03-01] MEDS: Omeprazole 20 MG Cap.CR PO SCH (07:18)
[2018-03-01] MEDS: Calcium Citrate/Vitamin D3 315 MG-250 Unit Tab PO SCH ×2 (08:03→17:52)
[2018-03-01] MEDS: metFORMIN 500 MG Tab PO SCH ×2 (08:05→17:53)
[2018-03-01] MEDS: Insulin Aspart 100 Units/ML 3 ML Pen SUBCUT SCH ×3 (08:06→17:53)
--- NOTE | 2018-03-01 08:55 | PCM.PN ---
- General Info Date of Service: 02/28/18 Functional Status: Reports: Pain Controlled, Tolerating Diet, Ambulating - Review of Systems General: Reports: No Symptoms HEENT: Reports: No Symptoms Pulmonary: Reports: No Symptoms Cardiovascular: Reports: No Symptoms Gastrointestinal: Reports: No Symptoms Genitourinary: Reports: No Symptoms Musculoskeletal: Reports: No Symptoms Skin: Reports: No Symptoms Neurological: Reports: No Symptoms Psychiatric: Denies: Confusion, Anxiety - Patient Data Vitals - Most Recent: Last Vital Signs Temp 98.1 F 03/01/18 06:51 Pulse 76 03/01/18 06:51 Resp 16 03/01/18 06:51 BP 128/76 03/01/18 06:51 Pulse Ox 96 03/01/18 06:51 Orthostatic Blood Pressure [ 113/66 Standing] Orthostatic Blood Pressure [ 122/69 Sitting] Orthostatic Blood Pressure [ 133/75 Supine] Weight - Most Recent: 263 lb 7 oz I&O - Last 24 Hours: Intake & Output 02/28/18 03/01/18 03/01/18 22:59 06:59 14:59 Intake Total 905 200 Output Total 1300 Balance 905 -1100 Lab Results Last 24 Hours: Laboratory Results - last 24 hr 02/28/18 02/28/18 02/28/18 Range/Units 11:29 17:41 21:01 POC Glucose 191 H 149 H 123 H (74-106) mg/dl 03/01/18 Range/Units 06:37 POC Glucose 147 H (74-106) mg/dl Med Orders - Current: Current Medications Acetaminophen (Tylenol) 650 mg PO TID [facility] Last Admin: 02/28/18 21:05 Dose: 650 mg Hydrocodone Bitart/Acetaminophen ([place] 325-5 Mg) 1 - 2 tab PO Q4H PRN PRN Reason: Pain Last Admin: 02/22/18 11:42 Dose: 1 tab Aspirin (Ecotrin) 325 mg PO DAILY [facility] Last Admin: 02/28/18 08:45 Dose: 325 mg Calcium Citrate (Calcium Citrate + D) 2 tab PO BIDMEALS [facility] Last Admin: 03/01/18 08:03 Dose: 2 tab Capsaicin (Zostrix 0.025% Crm) 0 gm TOP TID [facility] Last Admin: 02/28/18 21:07 Dose: 1 applic Diphenhydramine HCl (Benadryl) 25 mg PO Q18H [facility] Last Admin: 03/01/18 05:26 Dose: 25 mg Escitalopram Oxalate (Lexapro) 10 mg PO DAILY [facility] Last Admin: 02/28/18 08:45 Dose: 10 mg Hydrochlorothiazide (Hydrochlorothiazide) 25 mg PO DAILY [facility] Last Admin: 02/27/18 08:17 Dose: 25 mg Vancomycin HCl 1.5 gm/ Sodium (Chloride) 280 mls @ 112 mls/hr IV Q18H [facility] Last Admin: 03/01/18 06:07 Dose: 112 mls/hr Sodium Chloride (Normal Saline) 50 mls @ 12.5 mls/hr IV DAILY [facility] Last Admin: 02/28/18 12:18 Dose: 12.5 mls/hr Insulin Aspart (Novolog) 7 unit SUBCUT TIDMEALS [facility] Last Admin: 03/01/18 08:06 Dose: 7 units Insulin Detemir (Levemir) 13 unit SUBCUT DAILY [facility] Last Admin: 02/28/18 08:51 Dose: 13 units Lactobacillus Acidophilus/Rhamnosus (Multi-Lina Plus) 1 cap PO DAILY [facility] Last Admin: 02/28/18 08:45 Dose: 1 cap Liraglutide (Victoza) 1.8 mg SUBCUT DAILY [facility] Last Admin: 02/28/18 08:43 Dose: 1.8 mg Losartan Potassium (Cozaar) 25 mg PO DAILY [facility] Last Admin: 02/27/18 08:24 Dose: 25 mg Magnesium Hydroxide (Milk Of Magnesia) 30 ml PO DAILY PRN PRN Reason: Constipation Meclizine HCl (Antivert) 50 mg PO TID PRN PRN Reason: Dizziness Last Admin: 02/27/18 17:27 Dose: 50 mg Metformin HCl (Glucophage) 1,000 mg PO BIDMEALS [facility] Last Admin: 03/01/18 08:05 Dose: 1,000 mg Multivitamins/Minerals (Centrum) 1 tab PO DAILY [facility] Last Admin: 02/28/18 08:51 Dose: 1 tab Nystatin (Nystop) 0 gm TOP BID PRN PRN Reason: Rash Last Admin: 02/25/18 21:44 Dose: 1 applic Omeprazole (Omeprazole) 20 mg PO ACBREAKFAST [facility] Last Admin: 03/01/18 07:18 Dose: 20 mg Ondansetron HCl (Zofran Odt) 4 mg PO Q6H PRN PRN Reason: Nausea/Vomiting Last Admin: 02/27/18 14:21 Dose: 4 mg Polyethylene Glycol (Miralax) 17 gm PO DAILY PRN PRN Reason: Constipation Potassium Chloride (Klor-Con 10) 10 meq PO BID [facility] Last Admin: 02/28/18 21:06 Dose: 10 meq Rosuvastatin Calcium (Crestor) 2.5 mg PO DAILY [facility] Last Admin: 02/28/18 08:45 Dose: 2.5 mg Senna/Docusate Sodium (Senna Plus) 1 tab PO DAILY [facility] Last Admin: 02/28/18 08:44 Dose: 1 tab Sodium Chloride (Saline Flush) 10 ml FLUSH Q18H [facility] Last Admin: 03/01/18 06:07 Dose: 10 ml Sodium Chloride (Saline Flush) 10 ml FLUSH Q18H [facility] Last Admin: 03/01/18 06:40 Dose: Not Given Tramadol HCl (Ultram) 50 - 100 mg PO Q6H PRN PRN Reason: Pain Last Admin: 02/21/18 06:08 Dose: 100 mg Vancomycin HCl (Pharmacy To Dose - Vancomycin) 0 dose .XX ASDIRECTED [facility] Discontinued Medications Alteplase, Recombinant (Cathflo Activase) 2 mg IVPUSH ONETIME ONE Stop: 01/24/18 14:11 Last Admin: 01/24/18 14:18 Dose: 2 mg Alteplase, Recombinant (Cathflo Activase) 2 mg IVPUSH ONETIME ONE Stop: 01/31/18 09:31 Last Admin: 01/31/18 13:11 Dose: 2 mg Alteplase, Recombinant (Cathflo Activase) 2 mg IV ONETIME ONE Stop: 01/31/18 13:46 Last Admin: 01/31/18 13:11 Dose: 2 mg Capsaicin (Zostrix 0.025% Crm) 0 gm TOP QID PRN PRN Reason: Pain Last Admin: 02/22/18 08:49 Dose: 1 applic Diphenhydramine HCl (Benadryl) 25 mg PO Q12H [facility] Last Admin: 01/23/18 11:44 Dose: Not Given Diphenhydramine HCl (Benadryl) 25 mg PO 0730,1930 [facility] Last Admin: 01/25/18 13:59 Dose: 25 mg Diphenhydramine HCl (Benadryl) 25 mg PO Q18H [facility] Last Admin: 01/29/18 08:48 Dose: Not Given Enoxaparin Sodium (Lovenox) 40 mg SUBCUT Q24H [facility] Last Admin: 02/18/18 12:08 Dose: 40 mg Vancomycin HCl 2 gm/ Sodium (Chloride) 540 mls @ 166 mls/hr IV Q12H [facility] Last Admin: 01/23/18 11:43 Dose: Not Given Sodium Chloride (Normal Saline) Confirm Administered Dose 100 mls @ as directed .ROUTE .STK-MED ONE Stop: 01/22/18 19:26 Last Admin: 01/22/18 19:55 Dose: 25 mls/hr Vancomycin HCl 1.5 gm/ Sodium (Chloride) 250 mls @ 100 mls/hr IV Q12H [facility] Vancomycin HCl 1.5 gm/ Sodium (Chloride) 280 mls @ 112 mls/hr IV Q12H [facility] Last Admin: 01/25/18 07:52 Dose: Not Given Vancomycin HCl 1.5 gm/ Sodium (Chloride) 280 mls @ 112 mls/hr IV Q18H [facility] Last Admin: 01/28/18 18:35 Dose: Not Given Sodium Chloride (Normal Saline) 50 mls @ 25 mls/hr IV DAILY [facility] Sodium Chloride (Normal Saline) Confirm Administered Dose 50 mls @ as directed .ROUTE .STK-MED ONE Stop: 01/30/18 07:33 Last Admin: 01/30/18 09:01 Dose: 30 mls/hr Sodium Chloride (Normal Saline) 100 mls @ 25 mls/hr IV DAILY [facility] Last Admin: 02/01/18 12:51 Dose: 25 mls/hr Sodium Chloride (Normal Saline) Confirm Administered Dose 100 mls @ as directed .ROUTE .STK-MED ONE Stop: 01/31/18 00:08 Last Admin: 01/31/18 01:15 Dose: Not Given Sodium Chloride (Normal Saline) Confirm Administered Dose 50 mls @ as directed .ROUTE .STK-MED ONE Stop: 01/31/18 19:15 Last Admin: 01/31/18 19:32 Dose: Not Given Ketorolac Tromethamine (Toradol) 60 mg IM ONETIME ONE Stop: 02/20/18 17:12 Last Admin: 02/20/18 17:29 Dose: 60 mg Ketorolac Tromethamine (Toradol) 15 mg IVPUSH Q6H PRN PRN Reason: Pain Stop: 02/25/18 23:01 Last Admin: 02/21/18 14:45 Dose: 15 mg Ketorolac Tromethamine (Toradol) Confirm Administered Dose 30 mg .ROUTE .STK- MED ONE Stop: 02/20/18 20:29 Last Admin: 02/20/18 20:37 Dose: 30 mg NfCapsaicin (Cream 0.025% Cream) 1 each TOP QID PRN PRN Reason: Pain Last Admin: 02/20/18 16:30 Dose: 1 each Nystatin (Nystop) 1 gm TOP BID [facility] Last Admin: 02/19/18 16:40 Dose: Not Given Rosuvastatin Calcium (Crestor) 2.5 mg PO DAILY [facility] Last Admin: 01/24/18 08:31 Dose: 2.5 mg Sodium Chloride (Saline Flush) 10 ml FLUSH BID@0630,1830 [facility] Last Admin: 01/23/18 11:43 Dose: Not Given Sodium Chloride (Saline Flush) 10 ml FLUSH 0800,1030,2000,2230 [facility] Last Admin: 01/25/18 10:20 Dose: Not Given Sodium Chloride (Saline Flush) 10 ml FLUSH Q18H [facility] Last Admin: 01/29/18 08:48 Dose: Not Given Sodium Chloride (Saline Flush) 10 ml IV Q18H [facility] Last Admin: 01/28/18 21:26 Dose: 10 ml Sodium Chloride (Saline Flush) 10 ml FLUSH Q18H [facility] Last Admin: 01/31/18 03:25 Dose: 10 ml Sodium Chloride (Saline Flush) 10 ml IV Q18H [facility] Last Admin: 01/31/18 03:43 Dose: Not Given Sodium Chloride (Saline Flush) 10 ml FLUSH Q18H [facility] Last Admin: 01/31/18 17:18 Dose: Not Given Sodium Chloride (Saline Flush) 10 ml FLUSH Q18H [facility] Last Admin: 02/07/18 15:10 Dose: 10 ml - Exam Quality Assessment: No: Supplemental Oxygen General: Alert, Oriented, Cooperative HEENT: Pupils Equal, Pupils Reactive, EOMI, Mucous Membr. Moist/[place] Neck: Supple Lungs: Clear to Auscultation, Normal Respiratory Effort Cardiovascular: Regular Rate, Regular Rhythm Back Exam: No: CVA Tenderness (L), CVA Tenderness (R) Extremities: No Pedal Edema Wound/Incisions: Dressing Dry and Intact Neurological: No New Focal Deficit Psy/Mental Status: Alert, Normal Affect, Normal Mood - Problem List Review Problem List Initiated/Reviewed/Updated: Yes - Plan Plan:: HPI: This is a 57 year old male who is status post left TMA on 01/18/[address] Juarez at [facility]. He was admitted here for physical therapy, IV antibiotics, and wound care. He has a PICC line in place. He continues to follow with infectious disease and podiatry in [place] and via telemedicine. Last night on-call provider was notified that the patient had an episode of diaphoresis unresponsive's and dizziness chest pain radiating down his left upper extremity. after performing physical therapy. Nurses stated patient went unresponsive even to painful stimuli. In-house provider notified of patient's status and assess patient at bedside in which she started becoming more alert and then was answering questions. Provider upon assessment noted patient stated headache dizziness nausea along with photophobia--however will spontaneously open his eyes. Stat ECG demonstrated NSR heart rate [address] segment pathology troponins were normal head CT normal, neurovascular grossly intact with equal and full strength to all extremities. Her's is performed neurovascular checks every 2 hours throughout the night without any abnormality. He wa given anti- emetics along with meclizine. Update the following morning, neurovascular assessment completed completely normal, lungs are clear auscultation no carotid bruits, no diaphoresis slept well throughout the night, reviewed reports and labs, Long discussion with patient--somewhat vague on details. Denies anxiety however does have history of panic attack in the past however denies anxiety denies depression. Patient stated the room was spinning yesterday during the episode Primary Assessment: -Near-syncope goal episode, resolved, likely dehydration due to physical therapy , rule out carotid disease ultrasound ordered -Status post left foot transmetatarsal amputation (TMA) with wound dehiscence/ open wound -MRSA positive -Debility Plan: -Continue IV vancomycin for approximately 2 more weeks with careful trough monitoring -Continue daily betadine dressing changes -Continue with physical therapy offloading boot -Continue diphenhydramine prior to vancomycin infusions -Continue tylenol and tramadol PRN -Continue probiotic -No longer needing DVT prophylaxis. Chronic, stable problems: -Hypertension. Continue current medication regimen. -GERD. Continue omeprazole. -Type 2 diabetes mellitus with diabetic polyneuropathy. Recent glucose levels of 120 and 130. Continue current oral and insulin regimen. -Hyperlipidemia. Continue crestor and ASA. -Electrolyte and vitamin deficiencies. Continue potassium and Ca/D. BMP with labs on 02/19/18. -Obesity with BMI 30.0-39.9. 1800 calorie ADA diet. -Anxiety. Continue lexapro. -Constipation. Continue miralax. Hospitalization details: -Code Status: Full Code -Emergency Contact:
[2018-03-01] MEDS: Multivitamins with Minerals/Iron/Folic Acid/Lycopene Tab PO SCH (09:13)
[2018-03-01] MEDS: Losartan 25 MG Tab PO SCH (09:14)
[2018-03-01] MEDS: Rosuvastatin 5 MG Tab PO SCH (09:14)
[2018-03-01] MEDS: B.Bifidum/B.Longum/L.Acidophilus/L.Rhamnosus (Probiotic) Cap PO SCH (09:14)
[2018-03-01] MEDS: Escitalopram 10 MG Tab PO SCH (09:15)
[2018-03-01] MEDS: Potassium Chloride 10 MEQ Tab.ER PO SCH ×2 (09:16→20:18)
[2018-03-01] MEDS: Aspirin 325 MG Tab.EC PO SCH (09:16)
[2018-03-01] MEDS: Insulin Detemir 100 Units/ML 3 ML Pen SUBCUT SCH (09:16)
[2018-03-01] MEDS: Sodium Chloride 0.9% 50 ML IV SCH (09:17)
[2018-03-01] MEDS: Acetaminophen 325 MG Tab PO SCH ×3 (09:18→20:18)
[2018-03-01] MEDS: Liraglutide (rDNA Origin) 0.6 MG/0.1 ML 3 ML Pen SUBCUT SCH (09:19)
[2018-03-01] MEDS: Capsaicin 0.025% Crm 60 GM Tube TOP SCH ×3 (09:20→20:18)
[2018-03-02] MEDS: Sodium Chloride 0.9% 10 ML Syringe FLUSH SCH ×4 (00:01→23:20)
[2018-03-02] MEDS: Omeprazole 20 MG Cap.CR PO SCH (07:34)
[2018-03-02] MEDS: Calcium Citrate/Vitamin D3 315 MG-250 Unit Tab PO SCH ×2 (07:57→18:34)
[2018-03-02] MEDS: metFORMIN 500 MG Tab PO SCH ×2 (07:58→18:15)
[2018-03-02] MEDS: Insulin Aspart 100 Units/ML 3 ML Pen SUBCUT SCH ×3 (07:58→18:15)
[2018-03-02] MEDS: Potassium Chloride 10 MEQ Tab.ER PO SCH ×2 (08:04→20:15)
[2018-03-02] MEDS: Hydrochlorothiazide 25 MG Tab PO SCH (08:05)
[2018-03-02] MEDS: Rosuvastatin 5 MG Tab PO SCH (08:05)
[2018-03-02] MEDS: Aspirin 325 MG Tab.EC PO SCH (08:05)
[2018-03-02] MEDS: Escitalopram 10 MG Tab PO SCH (08:05)
[2018-03-02] MEDS: Insulin Detemir 100 Units/ML 3 ML Pen SUBCUT SCH (08:06)
[2018-03-02] MEDS: Multivitamins with Minerals/Iron/Folic Acid/Lycopene Tab PO SCH (08:06)
[2018-03-02] MEDS: B.Bifidum/B.Longum/L.Acidophilus/L.Rhamnosus (Probiotic) Cap PO SCH (08:06)
[2018-03-02] MEDS: Losartan 25 MG Tab PO SCH (08:06)
[2018-03-02] MEDS: Acetaminophen 325 MG Tab PO SCH ×3 (08:08→20:16)
[2018-03-02] MEDS: Liraglutide (rDNA Origin) 0.6 MG/0.1 ML 3 ML Pen SUBCUT SCH (08:10)
[2018-03-02] MEDS: Capsaicin 0.025% Crm 60 GM Tube TOP SCH ×3 (08:14→20:18)
[2018-03-02] MEDS: Sodium Chloride 0.9% 50 ML IV SCH (11:03)
[2018-03-02] MEDS: diphenhydrAMINE 25 MG Cap PO SCH (20:12)
[2018-03-03] MEDS: Calcium Citrate/Vitamin D3 315 MG-250 Unit Tab PO SCH ×2 (07:52→17:54)
[2018-03-03] MEDS: Omeprazole 20 MG Cap.CR PO SCH (07:52)
[2018-03-03] MEDS: metFORMIN 500 MG Tab PO SCH ×2 (07:53→17:56)
[2018-03-03] MEDS: Insulin Aspart 100 Units/ML 3 ML Pen SUBCUT SCH ×3 (07:53→17:54)
[2018-03-03] MEDS: Rosuvastatin 5 MG Tab PO SCH (08:00)
[2018-03-03] MEDS: Insulin Detemir 100 Units/ML 3 ML Pen SUBCUT SCH (08:01)
[2018-03-03] MEDS: Escitalopram 10 MG Tab PO SCH (08:01)
[2018-03-03] MEDS: Liraglutide (rDNA Origin) 0.6 MG/0.1 ML 3 ML Pen SUBCUT SCH (08:01)
[2018-03-03] MEDS: Aspirin 325 MG Tab.EC PO SCH (08:01)
[2018-03-03] MEDS: Acetaminophen 325 MG Tab PO SCH ×2 (08:02→13:48)
[2018-03-03] MEDS: Multivitamins with Minerals/Iron/Folic Acid/Lycopene Tab PO SCH (08:02)
[2018-03-03] MEDS: Potassium Chloride 10 MEQ Tab.ER PO SCH ×2 (08:02→20:57)
[2018-03-03] MEDS: B.Bifidum/B.Longum/L.Acidophilus/L.Rhamnosus (Probiotic) Cap PO SCH (08:02)
[2018-03-03] MEDS: Hydrochlorothiazide 25 MG Tab PO SCH (08:04)
[2018-03-03] MEDS: Losartan 25 MG Tab PO SCH (08:04)
[2018-03-03] MEDS: Capsaicin 0.025% Crm 60 GM Tube TOP SCH ×3 (08:06→20:57)
[2018-03-03] MEDS: diphenhydrAMINE 25 MG Cap PO SCH (11:39)
[2018-03-03] MEDS: Sodium Chloride 0.9% 50 ML IV SCH (12:00)
[2018-03-03] MEDS: Sodium Chloride 0.9% 10 ML Syringe FLUSH SCH ×3 (12:00→16:05)
[2018-03-03] MEDS ORDERED: Acetaminophen 325 MG Tab PO PRN (17:16)
[2018-03-04] MEDS: diphenhydrAMINE 25 MG Cap PO SCH (05:04)
[2018-03-04] MEDS: Sodium Chloride 0.9% 10 ML Syringe FLUSH SCH ×2 (05:05→09:46)
[2018-03-04 05:37] VITALS: BP 111/73
[2018-03-04] MEDS: Insulin Aspart 100 Units/ML 3 ML Pen SUBCUT SCH ×2 (07:40→11:52)
[2018-03-04] MEDS: Insulin Detemir 100 Units/ML 3 ML Pen SUBCUT SCH ×2 (07:41→09:48)
[2018-03-04] MEDS: Liraglutide (rDNA Origin) 0.6 MG/0.1 ML 3 ML Pen SUBCUT SCH ×2 (07:41→09:51)
[2018-03-04] MEDS: Hydrochlorothiazide 25 MG Tab PO SCH ×2 (07:45→09:48)
[2018-03-04] MEDS: Capsaicin 0.025% Crm 60 GM Tube TOP SCH ×3 (07:45→14:42)
[2018-03-04] MEDS: Aspirin 325 MG Tab.EC PO SCH ×2 (07:45→09:48)
[2018-03-04] MEDS: B.Bifidum/B.Longum/L.Acidophilus/L.Rhamnosus (Probiotic) Cap PO SCH ×2 (07:46→09:49)
[2018-03-04] MEDS: Rosuvastatin 5 MG Tab PO SCH ×2 (07:46→09:48)
[2018-03-04] MEDS: Multivitamins with Minerals/Iron/Folic Acid/Lycopene Tab PO SCH ×2 (07:46→09:47)
[2018-03-04] MEDS: metFORMIN 500 MG Tab PO SCH (07:47)
[2018-03-04] MEDS: Potassium Chloride 10 MEQ Tab.ER PO SCH ×2 (07:48→09:48)
[2018-03-04] MEDS: Escitalopram 10 MG Tab PO SCH ×2 (07:49→09:49)
[2018-03-04] MEDS: Omeprazole 20 MG Cap.CR PO SCH (07:49)
[2018-03-04] MEDS: Calcium Citrate/Vitamin D3 315 MG-250 Unit Tab PO SCH (07:49)
[2018-03-04] MEDS: Losartan 25 MG Tab PO SCH ×2 (07:50→09:48)
[2018-03-04] MEDS: Sodium Chloride 0.9% 50 ML IV SCH (09:47)
--- NOTE | 2018-03-04 16:49 | PCM.DCSUM1 ---
Discharge Summary - Hospital Course Free Text/Narrative:: Date of admission: 01/22/18 Date of discharge: 03/04/18 Admission diagnoses: -Debility -Status post left foot transmetatarsal amputation (TMA) -MRSA cellulitis -Hypertension -GERD -Type 2 diabetes mellitus with diabetic polyneuropathy -Hyperlipidemia -Electrolyte and vitamin deficiencies -Obesity with BMI 30.0-39.9 -Generalized anxiety disorder Discharge diagnoses: -Debility -Status post left foot transmetatarsal amputation (TMA) with wound dehiscence/ open wound -MRSA cellulitis -R knee sprain -R knee ostearthritis -Near-syncope episode, resolved -Hypertension -GERD -Type 2 diabetes mellitus with diabetic polyneuropathy -Hyperlipidemia -Electrolyte and vitamin deficiencies -Obesity with BMI 30.0-39.9 -Generalized anxiety disorder Consultations: Physical therapy Dietary director of home health services Procedures: None Hospital course: 57yoM status post left TMA on 01/18/[address] Juarez at [facility] who was admitted to swing bed for physical therapy, IV antibiotics with vancomycin through PICC line, and wound care. He received physical therapy, dietary, and rn social services consultations throughout his stay. He was also followed by podiatry and infectious disease in [place] at several appointments during his stay, including on the last day of his hospitalization when infectious disease discontinued vancomycin and he was subsequently deemed ready for discharge from fdc care. Notable events that occurred during his hospitalization include: - 02/14/18 Dehiscence of TMA wound, which was addressed by podiatry at subsequent visit and had improvement throughout remainder of stay - 02/20/18 R knee injury during physical therapy for which XR and MRI obtained showing severe tricompartmental osteoarthritis and was treated with topical and oral analgesics with improvement throughout remainder of stay - 02/27/18 Episode of diaphoresis, dizziness, and chest pain after physical therapy for which work-up, including EKG, serial troponins, CT head, and serial neurological exams were normal; After further discussion and evaluation, it was throught that the episode was secondary to dehydration and possible component of anxiety or panic; Carotid ultrasound is pending He was continued on other medications for chronic medical conditions throughout his stay and was discharged on the same he was receiving during the day of discharge. Follow-up with PCP in 5-7 days. - Discharge Data Discharge Date: 03/04/18 Discharge Disposition: Home, Self-Care 01 Condition: Good - Patient Summary/Data Consults: Consultations 01/22/18 14:20 Consult to Holistic Pulser [CONS] Routine Consult to Applications System Analyst [CONS] Routine PT Evaluation and Treatment [CONS] Routine - Patient Instructions Diet: Usual Diet as Tolerated Activity, Other: Per podiatry Showering/Bathing: May Shower Wound/Incision Care: Keep Operative Site/Wound Site Clean and Dry Notify Provider of: Fever, Increased Pain, Swelling and Redness, Drainage - Discharge Plan Prescriptions/Med Rec: Capsaicin [Zostrix 0.025% Crm] 0 gm TOP TID PRN #1 tube PRN Reason: Pain Home Medications: Home Meds Aspirin [Ecotrin] 325 mg PO DAILY 02/27/17 [History] Calcium Carbonate/Vitamin D3 [Calcium 600 + Vit D 400 Softgl] 1 tab PO BIDMEALS 02/27/17 [History] Omeprazole 20 mg PO ACBREAKFAST 02/27/17 [History] Polyethylene Glycol 3350 [MiraLAX] 17 gm PO DAILY PRN 02/27/17 [History] Liraglutide [Victoza] 1.8 mg SUBCUT DAILY 03/14/17 [History] metFORMIN [Glucophage] 1,000 mg PO BIDMEALS 03/14/17 [History] Escitalopram [Lexapro] 10 mg PO DAILY 05/11/17 [History] Losartan Potassium 25 mg PO DAILY 08/29/17 [History] Insulin Glarg,Human.Rec.Analog [LantUS Solostar] 22 units SQ DAILY 09/10/17 [ History] Hydrochlorothiazide 25 mg PO DAILY 01/22/18 [History] Insulin Aspart [NovoLOG] 7 unit SQ TIDMEALS 01/22/18 [History] Magnesium Hydroxide [Milk of Magnesia] 30 ml PO DAILY PRN 01/22/18 [History] Multivitamin with Minerals [Multivitamins with Minerals] 1 each PO DAILY [History] Potassium Chloride 10 meq PO BID 01/22/18 [History] Rosuvastatin [Crestor] 2.5 mg PO DAILY 01/22/18 [History] traMADol [Ultram] 50 - 100 mg PO Q6H PRN 01/22/18 [History] Acetaminophen [Tylenol] 650 mg PO Q6H PRN tablet 03/04/18 [Rx] Capsaicin [Zostrix 0.025% Crm] 0 gm TOP TID PRN #1 tube 03/04/18 [Rx] Referrals: Mendez Hawley RN CLINICAL REVIEW [Nurse Practitioner] - 03/13/18 2:00 pm (Or other clinic provider, in 7-10 days f/u appointment on March 13 @ 2pm) - Discharge Summary/Plan Comment DC Time >30 min.: No - Patient Data Vitals - Most Recent: Last Vital Signs Temp 37.1 C 03/04/18 05:35 Pulse 73 03/04/18 05:35 Resp 18 03/04/18 05:35 BP 111/73 03/04/18 07:50 Pulse Ox 94 L 03/04/18 05:35 Orthostatic Blood Pressure [ 113/66 Standing] Orthostatic Blood Pressure [ 122/69 Sitting] Orthostatic Blood Pressure [ 133/75 Supine] Weight - Most Recent: 119.493 kg I&O - Last 24 hours: Intake & Output 03/04/18 03/04/18 03/04/18 06:59 14:59 22:59 Intake Total 405 919 Output Total 1150 750 Balance -745 169 Lab Results - Last 24 hrs: Laboratory Results - last 24 hr 03/03/18 03/03/18 03/04/18 Range/Units 17:28 20:55 06:53 POC Glucose 147 H 156 H 182 H (74-106) mg/dl Med Orders - Current: Current Medications Acetaminophen (Tylenol) 650 mg PO Q6H PRN PRN Reason: Pain Aspirin (Ecotrin) 325 mg PO DAILY [facility] Last Admin: 03/04/18 09:48 Dose: Not Given Calcium Citrate (Calcium Citrate + D) 2 tab PO BIDMEALS [facility] Last Admin: 03/04/18 07:49 Dose: 2 tab Capsaicin (Zostrix 0.025% Crm) 0 gm TOP TID [facility] Last Admin: 03/04/18 14:42 Dose: Not Given Diphenhydramine HCl (Benadryl) 25 mg PO Q18H [facility] Last Admin: 03/04/18 05:04 Dose: 25 mg Escitalopram Oxalate (Lexapro) 10 mg PO DAILY [facility] Last Admin: 03/04/18 09:49 Dose: Not Given Hydrochlorothiazide (Hydrochlorothiazide) 25 mg PO DAILY [facility] Last Admin: 03/04/18 09:48 Dose: Not Given Insulin Aspart (Novolog) 7 unit SUBCUT TIDMEALS [facility] Last Admin: 03/04/18 11:52 Dose: Not Given Insulin Detemir (Levemir) 13 unit SUBCUT DAILY [facility] Last Admin: 03/04/18 09:48 Dose: Not Given Lactobacillus Acidophilus/Rhamnosus (Multi-Lina Plus) 1 cap PO DAILY [facility] Last Admin: 03/04/18 09:49 Dose: Not Given Liraglutide (Victoza) 1.8 mg SUBCUT DAILY [facility] Last Admin: 03/04/18 09:51 Dose: Not Given Losartan Potassium (Cozaar) 25 mg PO DAILY [facility] Last Admin: 03/04/18 09:48 Dose: Not Given Magnesium Hydroxide (Milk Of Magnesia) 30 ml PO DAILY PRN PRN Reason: Constipation Meclizine HCl (Antivert) 50 mg PO TID PRN PRN Reason: Dizziness Last Admin: 02/27/18 17:27 Dose: 50 mg Metformin HCl (Glucophage) 1,000 mg PO BIDMEALS [facility] Last Admin: 03/04/18 07:47 Dose: 1,000 mg Multivitamins/Minerals (Centrum) 1 tab PO DAILY [facility] Last Admin: 03/04/18 09:47 Dose: Not Given Nystatin (Nystop) 0 gm TOP BID PRN PRN Reason: Rash Last Admin: 02/25/18 21:44 Dose: 1 applic Omeprazole (Omeprazole) 20 mg PO ACBREAKFAST [facility] Last Admin: 03/04/18 07:49 Dose: 20 mg Ondansetron HCl (Zofran Odt) 4 mg PO Q6H PRN PRN Reason: Nausea/Vomiting Last Admin: 02/27/18 14:21 Dose: 4 mg Polyethylene Glycol (Miralax) 17 gm PO DAILY PRN PRN Reason: Constipation Potassium Chloride (Klor-Con 10) 10 meq PO BID [facility] Last Admin: 03/04/18 09:48 Dose: Not Given Rosuvastatin Calcium (Crestor) 2.5 mg PO DAILY [facility] Last Admin: 03/04/18 09:48 Dose: Not Given Senna/Docusate Sodium (Senna Plus) 1 tab PO DAILY [facility] Last Admin: 03/04/18 09:49 Dose: Not Given Tramadol HCl (Ultram) 50 - 100 mg PO Q6H PRN PRN Reason: Pain Last Admin: 02/21/18 06:08 Dose: 100 mg Vancomycin HCl (Pharmacy To Dose - Vancomycin) 0 dose .XX ASDIRECTED [facility] Discontinued Medications Acetaminophen (Tylenol) 650 mg PO TID [facility] Last Admin: 03/03/18 13:48 Dose: 650 mg Hydrocodone Bitart/Acetaminophen ([place] 325-5 Mg) 1 - 2 tab PO Q4H PRN PRN Reason: Pain Last Admin: 02/22/18 11:42 Dose: 1 tab Alteplase, Recombinant (Cathflo Activase) 2 mg IVPUSH ONETIME ONE Stop: 01/24/18 14:11 Last Admin: 01/24/18 14:18 Dose: 2 mg Alteplase, Recombinant (Cathflo Activase) 2 mg IVPUSH ONETIME ONE Stop: 01/31/18 09:31 Last Admin: 01/31/18 13:11 Dose: 2 mg Alteplase, Recombinant (Cathflo Activase) 2 mg IV ONETIME ONE Stop: 01/31/18 13:46 Last Admin: 01/31/18 13:11 Dose: 2 mg Capsaicin (Zostrix 0.025% Crm) 0 gm TOP QID PRN PRN Reason: Pain Last Admin: 02/22/18 08:49 Dose: 1 applic Diphenhydramine HCl (Benadryl) 25 mg PO Q12H [facility] Last Admin: 01/23/18 11:44 Dose: Not Given Diphenhydramine HCl (Benadryl) 25 mg PO 0730,1930 [facility] Last Admin: 01/25/18 13:59 Dose: 25 mg Diphenhydramine HCl (Benadryl) 25 mg PO Q18H [facility] Last Admin: 01/29/18 08:48 Dose: Not Given Enoxaparin Sodium (Lovenox) 40 mg SUBCUT Q24H [facility] Last Admin: 02/18/18 12:08 Dose: 40 mg Vancomycin HCl 2 gm/ Sodium (Chloride) 540 mls @ 166 mls/hr IV Q12H [facility] Last Admin: 01/23/18 11:43 Dose: Not Given Sodium Chloride (Normal Saline) Confirm Administered Dose 100 mls @ as directed .ROUTE .STK-MED ONE Stop: 04/10/18 19:26 Last Admin: 01/22/18 19:55 Dose: 25 mls/hr Vancomycin HCl 1.5 gm/ Sodium (Chloride) 250 mls @ 100 mls/hr IV Q12H [facility] Vancomycin HCl 1.5 gm/ Sodium (Chloride) 280 mls @ 112 mls/hr IV Q12H [facility] Last Admin: 01/25/18 07:52 Dose: Not Given Vancomycin HCl 1.5 gm/ Sodium (Chloride) 280 mls @ 112 mls/hr IV Q18H [facility] Last Admin: 01/28/18 18:35 Dose: Not Given Vancomycin HCl 1.5 gm/ Sodium (Chloride) 280 mls @ 112 mls/hr IV Q18H [facility] Last Admin: 03/04/18 05:23 Dose: 112 mls/hr Sodium Chloride (Normal Saline) 50 mls @ 25 mls/hr IV DAILY [facility] Sodium Chloride (Normal Saline) Confirm Administered Dose 50 mls @ as directed .ROUTE .STK-MED ONE Stop: 01/30/18 07:33 Last Admin: 01/30/18 09:01 Dose: 30 mls/hr Sodium Chloride (Normal Saline) 100 mls @ 25 mls/hr IV DAILY [facility] Last Admin: 02/01/18 12:51 Dose: 25 mls/hr Sodium Chloride (Normal Saline) Confirm Administered Dose 100 mls @ as directed .ROUTE .STK-MED ONE Stop: 01/31/18 00:08 Last Admin: 01/31/18 01:15 Dose: Not Given Sodium Chloride (Normal Saline) Confirm Administered Dose 50 mls @ as directed .ROUTE .STK-MED ONE Stop: 01/31/18 19:15 Last Admin: 01/31/18 19:32 Dose: Not Given Sodium Chloride (Normal Saline) 50 mls @ 12.5 mls/hr IV DAILY [facility] Last Admin: 03/04/18 09:47 Dose: Not Given Ketorolac Tromethamine (Toradol) 60 mg IM ONETIME ONE Stop: 02/20/18 17:12 Last Admin: 02/20/18 17:29 Dose: 60 mg Ketorolac Tromethamine (Toradol) 15 mg IVPUSH Q6H PRN PRN Reason: Pain Stop: 02/25/18 23:01 Last Admin: 02/21/18 14:45 Dose: 15 mg Ketorolac Tromethamine (Toradol) Confirm Administered Dose 30 mg .ROUTE .STK- MED ONE Stop: 02/20/18 20:29 Last Admin: 02/20/18 20:37 Dose: 30 mg NfCapsaicin (Cream 0.025% Cream) 1 each TOP QID PRN PRN Reason: Pain Last Admin: 02/20/18 16:30 Dose: 1 each Nystatin (Nystop) 1 gm TOP BID [facility] Last Admin: 02/19/18 16:40 Dose: Not Given Rosuvastatin Calcium (Crestor) 2.5 mg PO DAILY [facility] Last Admin: 01/24/18 08:31 Dose: 2.5 mg Sodium Chloride (Saline Flush) 10 ml FLUSH BID@0630,1830 [facility] Last Admin: 01/23/18 11:43 Dose: Not Given Sodium Chloride (Saline Flush) 10 ml FLUSH 0800,1030,2000,2230 [facility] Last Admin: 01/25/18 10:20 Dose: Not Given Sodium Chloride (Saline Flush) 10 ml FLUSH Q18H [facility] Last Admin: 01/29/18 08:48 Dose: Not Given Sodium Chloride (Saline Flush) 10 ml IV Q18H [facility] Last Admin: 01/28/18 21:26 Dose: 10 ml Sodium Chloride (Saline Flush) 10 ml FLUSH Q18H [facility] Last Admin: 01/31/18 03:25 Dose: 10 ml Sodium Chloride (Saline Flush) 10 ml IV Q18H [facility] Last Admin: 01/31/18 03:43 Dose: Not Given Sodium Chloride (Saline Flush) 10 ml FLUSH Q18H [facility] Last Admin: 01/31/18 17:18 Dose: Not Given Sodium Chloride (Saline Flush) 10 ml FLUSH Q18H [facility] Last Admin: 03/04/18 05:05 Dose: 10 ml Sodium Chloride (Saline Flush) 10 ml FLUSH Q18H [facility] Last Admin: 02/07/18 15:10 Dose: 10 ml Sodium Chloride (Saline Flush) 10 ml FLUSH Q18H [facility] Last Admin: 03/04/18 09:46 Dose: Not Given
== END 2018-03-04 17:10 | disposition home or self-care (01) | DRG 862 ==
LOC: KA.MS 13:50
PROVIDERS: ADMIT Family Medicine; ATTEND Family Medicine
DX: Z47.81 Encounter for orthopedic aftercare following surgical amputation (principal); R53.81 Other malaise; E78.00 Pure hypercholesterolemia, unspecified; K21.9 Gastro-esophageal reflux disease without esophagitis; I12.9 Hypertensive chronic kidney disease with stage 1 through stage 4 chronic kidney disease, or unspecified chronic kidney disease; E11.22 Type 2 diabetes mellitus with diabetic chronic kidney disease; E11.40 Type 2 diabetes mellitus with diabetic neuropathy, unspecified; N18.9 Chronic kidney disease, unspecified; T87.81 Dehiscence of amputation stump; M17.11 Unilateral primary osteoarthritis, right knee; R61 Generalized hyperhidrosis; R42 Dizziness and giddiness; R07.9 Chest pain, unspecified; E86.0 Dehydration; F41.0 Panic disorder [episodic paroxysmal anxiety]; Z88.2 Allergy status to sulfonamides; Z88.8 Allergy status to other drugs, medicaments and biological substances; Z79.899 Other long term (current) drug therapy; Z79.4 Long term (current) use of insulin
CPT/HCPCS: 36415; 70450; 73560-RT; 73721-RT; 80048; 80053; 80061; 80202; 82565; 82962; 84484; 85025; 85027; 87070; 87147; 87205; 93005; 97035-GP; 97110-GP; 97112-GP; 97161-GP; 97537-GP; A9270-GY; J1650; J1815-GY; J1885; J2997; J3370; J3490; J7040; J7050

== ENCOUNTER 2018-06-28 12:18 | Observation (INO) | payer BC, MEDICAID ==
[2018-06-28] MEDS ORDERED: Insulin Aspart 100 Units/ML 3 ML Pen ONE (12:51)
[2018-06-28] MEDS ORDERED: Sodium Chloride 0.9% 1,000 ML ONE ×2 (12:51→14:48)
[2018-06-28] MEDS ORDERED: Sodium Chloride 0.9% 1,000 ML IV ONE (13:00)
[2018-06-28] MEDS ORDERED: Insulin Aspart 100 Units/ML 3 ML Pen SUBCUT ONE (13:00)
[2018-06-28] MEDS ORDERED: Acetaminophen 325 MG Tab PO PRN (15:55)
[2018-06-28] MEDS ORDERED: Magnesium Hydroxide 400 MG/5 ML Susp 30 ML Cup PO PRN (15:57)
[2018-06-28] MEDS ORDERED: Polyethylene Glycol 3350 Powder 17 GM Packet PO PRN (15:57)
[2018-06-28] MEDS ORDERED: Capsaicin 0.025% Crm 60 GM Tube TOP PRN (15:57)
[2018-06-28] MEDS ORDERED: traMADol 50 MG Tab PO PRN (15:57)
[2018-06-28] MEDS ORDERED: Sodium Chloride 0.9% 100 ML IV SCH (16:00)
[2018-06-28] MEDS ORDERED: Sodium Chloride 0.9% 500 ML IV ONE (16:42)
[2018-06-28] MEDS ORDERED: metFORMIN 500 MG Tab PO SCH (18:00)
[2018-06-28] MEDS: Insulin Aspart 100 Units/ML 3 ML Pen SUBCUT SCH (18:55)
[2018-06-28] MEDS: Calcium Citrate/Vitamin D3 315 MG-250 Unit Tab PO SCH (18:58)
--- NOTE | 2018-06-28 20:21 | PCM.HP ---
H&P History of Present Illness - General Date of Service: 06/28/18 Admit Problem/Dx: Admission Diagnosis/Problem Admission Diagnosis/Problem Dehydration Source of Information: Patient, Old Records, Provider, RN History Limitations: Reports: No Limitations - Related Data Allergies/Adverse Reactions: Allergies Allergy/AdvReac Type Severity Reaction Status Date / Time vancomycin Allergy Intermediate Rash Verified 01/22/18 20:46 Sulfa (Sulfonamide Allergy Shortness Verified 01/22/18 20:46 Antibiotics) of Breath Home Medications: Home Meds Aspirin [Ecotrin] 325 mg PO DAILY 02/27/17 [History] Calcium Carbonate/Vitamin D3 [Calcium 600 + Vit D 400 Softgl] 1 tab PO BIDMEALS 02/27/17 [History] Omeprazole 20 mg PO ACBREAKFAST 02/27/17 [History] Polyethylene Glycol 3350 [MiraLAX] 17 gm PO DAILY PRN 02/27/17 [History] Liraglutide [Victoza] 1.8 mg SUBCUT DAILY 03/14/17 [History] metFORMIN [Glucophage] 1,000 mg PO BIDMEALS 03/14/17 [History] Escitalopram [Lexapro] 10 mg PO DAILY 05/11/17 [History] Losartan Potassium 25 mg PO DAILY 08/29/17 [History] Insulin Glarg,Human.Rec.Analog [LantUS Solostar] 13 units SQ DAILY 09/10/17 [ History] Insulin Aspart [NovoLOG] 7 unit SQ TIDMEALS 01/22/18 [History] Multivitamin with Minerals [Multivitamins with Minerals] 1 each PO DAILY [History] Potassium Chloride 10 meq PO BID 01/22/18 [History] Rosuvastatin [Crestor] 2.5 mg PO DAILY 01/22/18 [History] hydroCHLOROthiazide [Hydrochlorothiazide] 25 mg PO DAILY 01/22/18 [History] Acetaminophen [Tylenol] 650 mg PO Q6H PRN tablet 03/04/18 [Rx] Acetaminophen [Tylenol] 650 mg PO TID 06/28/18 [History] Phentermine HCl 37.5 mg PO DAILY 06/28/18 [History] Past Medical History HEENT History: Reports: Impaired Vision Cardiovascular History: Reports: High Cholesterol, Hypertension Respiratory History: Reports: None Gastrointestinal History: Reports: GERD Genitourinary History: Reports: Chronic Renal Insuffiency Musculoskeletal History: Reports: Amputation Other Musculoskeletal History: 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 Neurological History: Reports: Neuropathy, Diabetic Psychiatric History: Reports: Anxiety, Depression, Panic Attack Endocrine/Metabolic History: Reports: Diabetes, Type II, IDDM, Obesity/BMI 30+ Dermatologic History: Reports: Cellulitis - Infectious Disease History Infectious Disease History: Reports: MRSA - Past Surgical History HEENT Surgical History: Reports: None Cardiovascular Surgical History: Reports: None Respiratory Surgical History: Reports: None GI Surgical History: Reports: Appendectomy, Cholecystectomy, Colonoscopy Male Surgical History: Reports: None Endocrine Surgical History: Reports: None Neurological Surgical History: Reports: None Musculoskeletal Surgical History: Reports: Amputation, Arthroscopic Knee Dermatological Surgical History: Reports: None Social & Family History - Family History HEENT: Reports: None Cardiac: Reports: None Respiratory: Reports: None GI: Reports: None : Reports: None OBGYN: Reports: None Musculoskeletal: Reports: None Neurological: Reports: None Psychiatric: Reports: None Endocrine/Metabolic: Reports: Diabetes, type II (Brother) Hematologic: Reports: None Immunologic: Reports: None Dermatologic: Reports: None Oncologic: Reports: Prostate - Tobacco Use Smoking Status *Q: Never Smoker Second Hand Smoke Exposure: No - Caffeine Use Caffeine Use: Reports: Soda - Recreational Drug Use Recreational Drug Use: No H&P Review of Systems - Review of Systems: Review Of Systems: See Below General: Reports: Malaise, Weakness, Fatigue. Denies: Fever, Chills, Decreased Appetite HEENT: Reports: Glasses. Denies: Ear Pain, Headaches, Sinus Congestion, Sore Throat Pulmonary: Denies: Shortness of Breath, Cough Cardiovascular: Reports: Lightheadedness. Denies: Chest Pain, Palpitations, Edema Gastrointestinal: Reports: Diarrhea (2 loose stools today, no blood). Denies: Abdominal Pain, Constipation, Nausea, Vomiting Genitourinary: Reports: No Symptoms Neurological: Reports: Dizziness. Denies: Headache Exam - Exam Exam: See Below - Vital Signs Vital Signs: Last Vital Signs Temp 98.9 F 06/28/18 15:20 Pulse 92 06/28/18 15:20 Resp 18 06/28/18 15:20 BP 104/66 06/28/18 15:20 Pulse Ox 97 06/28/18 15:20 - Exam Quality Assessment: DVT Prophylaxis (score of 2. Sarah stockings.). No: Supplemental Oxygen General: Alert, Oriented, Cooperative, Other (No distress) HEENT: Conjunctiva Clear, Hearing Intact, Mucosa Moist & [place], Posterior Pharynx Clear, TMs Clear, Glasses Neck: Supple, Trachea Midline Lungs: Clear to Auscultation, Normal Respiratory Effort Cardiovascular: Regular Rate, Regular Rhythm, Normal S1, Normal S2 GI/Abdominal Exam: Normal Bowel Sounds, Soft, Non-Tender Extremities: No Pedal Edema Skin: Warm, Dry, Intact Neuro Extensive - Mental Status: Alert, Oriented x3, Normal Mood/Affect, Normal Cognition, Memory Intact Psychiatric: Alert, Normal Affect, Normal Mood - Patient Data Lab Results Last 24 hrs: Laboratory Results - last 24 hr 06/28/18 06/28/18 Range/Units 12:32 15:22 POC Glucose 385 H 294 H (74-106) mg/dl Result Diagrams: 06/29/18 07:35 06/29/18 07:35 Problem List Initiated/Reviewed/Updated: Yes Orders Last 24hrs: Active Orders 24 hr Category Date Time Status Patient Status [ADT] Routine ADT 06/28/18 15:55 Ordered Blood Glucose Check, Bedside [RC] QIDACANDBED Care 06/28/18 16:23 Active Up With Assistance [RC] ASDIRECTED Care 06/28/18 15:55 Active Vital Signs [RC] 0700,1500,2300 Care 06/28/18 15:55 Active [employer] Diet [DIET] Diet 06/28/18 Dinner Active CBC WITH AUTO DIFF [HEME] AM Lab 06/29/18 05:11 Ordered CMP [COMPREHENSIVE METABOLIC PN,CMP] [CHEM] Routine Lab 06/29/18 07:00 Ordered Acetaminophen [Tylenol] Med 06/28/18 15:55 Active 650 mg PO Q6H PRN Acetaminophen [Tylenol] Med 06/28/18 21:00 Active 650 mg PO TID Aspirin [Ecotrin] Med 06/29/18 09:00 Active 325 mg PO DAILY Calcium Citrate/Vitamin D3 [Calcium Citrate + D] Med 06/28/18 18:00 Active 2 tab PO BIDMEALS Escitalopram [Lexapro] Med 06/29/18 09:00 Active 10 mg PO DAILY FA/Lycopene/Lut/MV,Ca,Iron,Min [Centrum] Med 06/29/18 09:00 Active 1 tab PO DAILY Insulin Aspart [NovoLOG] Med 06/28/18 18:00 Active See Protocol SUBCUT TIDMEALS Insulin Detemir [Levemir] Med 06/29/18 09:00 Active 13 unit SUBCUT DAILY Liraglutide [Victoza] Med 06/29/18 09:00 Active 1.8 mg SUBCUT DAILY Omeprazole Med 06/29/18 07:30 Active 20 mg PO ACBREAKFAST Polyethylene Glycol 3350 [MiraLAX] Med 06/28/18 15:57 Active 17 gm PO DAILY PRN Potassium Chloride [Klor-Con 10] Med 06/28/18 21:00 Active 10 meq PO BID Rosuvastatin [Crestor] Med 06/29/18 09:00 Active 2.5 mg PO DAILY Sodium Chloride 0.9% @ 100 MLS/HR(1,000ml) Med 06/28/18 20:30 Ordered Sodium Chloride 0.9% [Normal Saline] 1,000 ml IV ASDIRECTED metFORMIN [Glucophage] Med 06/28/18 18:00 Hold 1,000 mg PO BIDMEALS Resuscitation Status Routine Resus Stat 06/28/18 16:55 Ordered Medication Orders Acetaminophen (Tylenol) 650 mg PO Q6H PRN PRN Reason: analgesia/fever Acetaminophen (Tylenol) 650 mg PO TID [facility] Aspirin (Ecotrin) 325 mg PO DAILY [facility] Calcium Citrate (Calcium Citrate + D) 2 tab PO BIDMEALS [facility] Last Admin: 06/28/18 18:58 Dose: 2 tab Escitalopram Oxalate (Lexapro) 10 mg PO DAILY [facility] Insulin Aspart (Novolog) 0 unit SUBCUT TIDMEALS [facility]; Protocol Last Admin: 06/28/18 18:55 Dose: 4 units Insulin Detemir (Levemir) 13 unit SUBCUT DAILY [facility] Liraglutide (Victoza) 1.8 mg SUBCUT DAILY [facility] Metformin HCl (Glucophage) 1,000 mg PO BIDMEALS [facility] Multivitamins/Minerals (Centrum) 1 tab PO DAILY [facility] Omeprazole (Omeprazole) 20 mg PO ACBREAKFAST [facility] Polyethylene Glycol (Miralax) 17 gm PO DAILY PRN PRN Reason: Constipation Potassium Chloride (Klor-Con 10) 10 meq PO BID [facility] Rosuvastatin Calcium (Crestor) 2.5 mg PO DAILY [facility] Assessment/Plan Comment:: HPI: This is a 57 year old male who presented to the [facility] on 06[facility]18 with concerns of chest pain and a high blood sugar. He states he just hasn't been feeling quite right the last few days. The patient had lab work-up in the clinic that showed a glucose of 424 and an elevated creatinine of 1.85. WBC 10.0 without a left shift, ESR 38, troponin <0.10. He had a chest x-ray that has been verbally reported as negative. The EKG showed NSR at 92 bpm. The patient was sent to the [facility] for outpatient fluids and insulin. He received 1.5 liters of normal saline and 11 units of insulin, which brought his blood sugar down to 385. The patient stood up to use the restroom and became very dizzy and diaphoretic. The patient was subsequently admitted for further hemodynamic monitoring, insulin, and fluids. Primary Impression/Plan: Acute kidney injury. Creatinine 1.85 (baseline 1.04), GFR 38. Hold metformin. Dehydration. Na 127. Continue NS at 100 mL/hr. He may continue to drink as able. Hyperglycemia in type 2 diabetic patient. Glucose improved to 385 after initial insulin dose. Continue accuchecks QID. Will correct elevated sugars with medium dose sliding scale. Continue home dose of lantus at 13 units and victoza 1.8 units daily. Holding metformin. Dizziness, question relation to dehydration or orthostatic hypotension. Will continue to monitor and check orthostatic BPs in AM. Secondary Impression/Plan: Hypertension. Hold losartan & HCTZ. Dyslipidemia. Continue crestor. Obesity. Patient had been placed on phentermine about 6 weeks ago for weight loss. Will hold this. GERD. Continue daily omeprazole. History of MRSA. Diabetic polyneuropathy. Depression. Continue lexapro. Constipation. Continue miralax PRN. DVT prophylaxis. Score of 2. Will apply sarah stockings. Overall plan: Continue with IV fluids and hemodynamic monitoring. Repeat labs in the AM. Continue accuchecks BID and correct with sliding scale insulin.
[2018-06-28] MEDS ORDERED: Sodium Chloride 0.9% 1,000 ML IV SCH (20:30)
[2018-06-28] MEDS: Potassium Chloride 10 MEQ Tab.ER PO SCH (22:55)
[2018-06-28] MEDS: Acetaminophen 325 MG Tab PO SCH (22:56)
[2018-06-29] MEDS ORDERED: Aluminum Hydroxide/Magnesium Hydroxide Susp 30 ML Cup PO PRN (02:17)
[2018-06-29] MEDS: Omeprazole 20 MG Cap.CR PO SCH (06:38)
[2018-06-29 08:09] LABS: ANION GAP 14.1 mmol/L (5-15)
[2018-06-29] MEDS: Escitalopram 10 MG Tab PO SCH (08:09)
[2018-06-29] MEDS: Aspirin 325 MG Tab.EC PO SCH (08:09)
[2018-06-29] MEDS: Calcium Citrate/Vitamin D3 315 MG-250 Unit Tab PO SCH ×2 (08:09→17:56)
[2018-06-29] MEDS: Rosuvastatin 5 MG Tab PO SCH (08:09)
[2018-06-29] MEDS: Multivitamins with Minerals/Iron/Folic Acid/Lycopene Tab PO SCH (08:09)
[2018-06-29] MEDS: Potassium Chloride 10 MEQ Tab.ER PO SCH ×2 (08:09→20:40)
[2018-06-29] MEDS: Acetaminophen 325 MG Tab PO SCH ×3 (08:10→20:40)
[2018-06-29] MEDS: Insulin Detemir 100 Units/ML 3 ML Pen SUBCUT SCH (08:12)
[2018-06-29] MEDS: Liraglutide (rDNA Origin) 0.6 MG/0.1 ML 3 ML Pen SUBCUT SCH (08:14)
[2018-06-29] MEDS: Insulin Aspart 100 Units/ML 3 ML Pen SUBCUT SCH ×3 (08:15→17:56)
--- NOTE | 2018-06-29 09:59 | PCM.PN ---
- General Info Date of Service: 06/29/18 Functional Status: Reports: Pain Controlled, Tolerating Diet, Ambulating, Urinating. Denies: New Symptoms - Review of Systems General: Reports: Weakness. Denies: Fever, Chills HEENT: Reports: Glasses. Denies: Headaches Pulmonary: Denies: Shortness of Breath Cardiovascular: Reports: Lightheadedness. Denies: Chest Pain Gastrointestinal: Reports: Diarrhea (loose stool this AM). Denies: Abdominal Pain, Decreased Appetite, Nausea, Vomiting Genitourinary: Reports: No Symptoms Neurological: Reports: Dizziness. Denies: Headache Psychiatric: Reports: No Symptoms - Patient Data Vitals - Most Recent: Last Vital Signs Temp 98.1 F 06/29/18 07:00 Pulse 80 06/29/18 07:00 Resp 16 06/29/18 07:00 BP 121/67 06/29/18 07:00 Pulse Ox 94 L 06/29/18 07:00 Orthostatic Blood Pressure [ 84/48 Standing] Orthostatic Blood Pressure [ 105/56 Sitting] Orthostatic Blood Pressure [ 109/62 Supine] Weight - Most Recent: 268 lb 7 oz I&O - Last 24 Hours: Intake & Output 06/28/18 06/29/18 06/29/18 22:59 06:59 14:59 Intake Total 715 439 Output Total 600 1700 Balance 115 -1261 Lab Results Last 24 Hours: Laboratory Results - last 24 hr 06/28/18 06/28/18 06/28/18 Range/Units 12:32 15:22 17:47 WBC (5.00-10.00) 10^3/uL RBC (4.50-6.00) 10^6/uL Hgb (13.0-17.0) g/dL Hct (40.0-52.0) % MCV (82.0-92.0) fL MCH (27.0-31.0) pg MCHC (32.0-36.0) g/dL RDW (11.5-14.5) % Plt Count (150-400) 10^3/uL MPV (7.4-10.4) fL Immature Gran % (Auto) (0.0-5.0) % Neut % (Auto) (50.0-70.0) % Lymph % (Auto) (20.0-40.0) % [place] % (Auto) (2.0-8.0) % Eos % (Auto) (1.0-3.0) % Baso % (Auto) (0.0-1.0) % Immature Gran # (Auto) (0.00-0.50) 10^3/uL Neut # (Auto) (2.50-7.00) 10^3/uL Lymph # (Auto) (1.00-4.00) 10^3/uL [place] # (Auto) (0.10-0.80) 10^3/uL Eos # (Auto) (0.10-0.30) 10^3/uL Baso # (Auto) (0.00-0.10) 10^3/uL Sodium (136-145) mmol/L Potassium (3.3-5.3) mmol/L Chloride (98-115) mmol/L Carbon Dioxide (21.0-32.0) mmol/L Anion Gap (5-15) mmol/L BUN (6-25) mg/dL Creatinine (0.51-1.17) mg/dL Est Cr Clr Drug Dosing mL/min Estimated GFR (MDRD) mL/min Glucose mg/dL POC Glucose 385 H 294 H 200 H (74-106) mg/dl Calcium (8.7-10.3) mg/dL Total Bilirubin (0.2-1.0) mg/dL AST (15-37) U/L ALT (12-78) U/L Alkaline Phosphatase (46-116) IU/L Total Protein (6.4-8.2) g/dL Albumin (3.00-4.80) g/dL 06/28/18 06/29/18 06/29/18 Range/Units 22:53 07:35 07:35 WBC 8.04 (5.00-10.00) 10^3/uL RBC 3.61 L (4.50-6.00) 10^6/uL Hgb 11.6 L (13.0-17.0) g/dL Hct 32.8 L (40.0-52.0) % MCV 90.9 (82.0-92.0) fL MCH 32.1 H (27.0-31.0) pg MCHC 35.4 (32.0-36.0) g/dL RDW 12.5 (11.5-14.5) % Plt Count 317 (150-400) 10^3/uL MPV 10.7 H (7.4-10.4) fL Immature Gran % (Auto) 0.2 (0.0-5.0) % Neut % (Auto) 69.6 (50.0-70.0) % Lymph % (Auto) 22.1 (20.0-40.0) % [place] % (Auto) 6.5 (2.0-8.0) % Eos % (Auto) 1.4 (1.0-3.0) % Baso % (Auto) 0.2 (0.0-1.0) % Immature Gran # (Auto) 0.02 (0.00-0.50) 10^3/uL Neut # (Auto) 5.59 (2.50-7.00) 10^3/uL Lymph # (Auto) 1.78 (1.00-4.00) 10^3/uL [place] # (Auto) 0.52 (0.10-0.80) 10^3/uL Eos # (Auto) 0.11 (0.10-0.30) 10^3/uL Baso # (Auto) 0.02 (0.00-0.10) 10^3/uL Sodium 133 L (136-145) mmol/L Potassium 3.7 (3.3-5.3) mmol/L Chloride 97 L (98-115) mmol/L Carbon Dioxide 25.6 (21.0-32.0) mmol/L Anion Gap 14.1 (5-15) mmol/L BUN 38 H (6-25) mg/dL Creatinine 1.46 H (0.51-1.17) mg/dL Est Cr Clr Drug Dosing 61.27 mL/min Estimated GFR (MDRD) 50 mL/min Glucose 287 mg/dL POC Glucose 261 H (74-106) mg/dl Calcium 8.4 L (8.7-10.3) mg/dL Total Bilirubin 1.5 H (0.2-1.0) mg/dL AST 18 (15-37) U/L ALT 26 (12-78) U/L Alkaline Phosphatase 97 (46-116) IU/L Total Protein 7.2 (6.4-8.2) g/dL Albumin 3.33 (3.00-4.80) g/dL 06/29/18 Range/Units 07:57 WBC (5.00-10.00) 10^3/uL RBC (4.50-6.00) 10^6/uL Hgb (13.0-17.0) g/dL Hct (40.0-52.0) % MCV (82.0-92.0) fL MCH (27.0-31.0) pg MCHC (32.0-36.0) g/dL RDW (11.5-14.5) % Plt Count (150-400) 10^3/uL MPV (7.4-10.4) fL Immature Gran % (Auto) (0.0-5.0) % Neut % (Auto) (50.0-70.0) % Lymph % (Auto) (20.0-40.0) % [place] % (Auto) (2.0-8.0) % Eos % (Auto) (1.0-3.0) % Baso % (Auto) (0.0-1.0) % Immature Gran # (Auto) (0.00-0.50) 10^3/uL Neut # (Auto) (2.50-7.00) 10^3/uL Lymph # (Auto) (1.00-4.00) 10^3/uL [place] # (Auto) (0.10-0.80) 10^3/uL Eos # (Auto) (0.10-0.30) 10^3/uL Baso # (Auto) (0.00-0.10) 10^3/uL Sodium (136-145) mmol/L Potassium (3.3-5.3) mmol/L Chloride (98-115) mmol/L Carbon Dioxide (21.0-32.0) mmol/L Anion Gap (5-15) mmol/L BUN (6-25) mg/dL Creatinine (0.51-1.17) mg/dL Est Cr Clr Drug Dosing mL/min Estimated GFR (MDRD) mL/min Glucose mg/dL POC Glucose 295 H (74-106) mg/dl Calcium (8.7-10.3) mg/dL Total Bilirubin (0.2-1.0) mg/dL AST (15-37) U/L ALT (12-78) U/L Alkaline Phosphatase (46-116) IU/L Total Protein (6.4-8.2) g/dL Albumin (3.00-4.80) g/dL Med Orders - Current: Current Medications Acetaminophen (Tylenol) 650 mg PO Q6H PRN PRN Reason: analgesia/fever Acetaminophen (Tylenol) 650 mg PO TID [facility] Last Admin: 06/29/18 08:10 Dose: 650 mg Al Hydroxide/Mg Hydroxide (Mag-Al Susp) 30 ml PO Q6H PRN PRN Reason: Dyspepsia Last Admin: 06/29/18 02:30 Dose: 30 ml Aspirin (Ecotrin) 325 mg PO DAILY [facility] Last Admin: 06/29/18 08:09 Dose: 325 mg Calcium Citrate (Calcium Citrate + D) 2 tab PO BIDMEALS [facility] Last Admin: 06/29/18 08:09 Dose: 2 tab Escitalopram Oxalate (Lexapro) 10 mg PO DAILY [facility] Last Admin: 06/29/18 08:09 Dose: 10 mg Sodium Chloride (Normal Saline) 1,000 mls @ 100 mls/hr IV ASDIRECTED [facility] Last Admin: 06/28/18 22:59 Dose: 100 mls/hr Insulin Aspart (Novolog) 0 unit SUBCUT TIDMEALS [facility]; Protocol Last Admin: 06/29/18 08:15 Dose: 6 units Insulin Detemir (Levemir) 13 unit SUBCUT DAILY [facility] Last Admin: 06/29/18 08:12 Dose: 13 unit Liraglutide (Victoza) 1.8 mg SUBCUT DAILY [facility] Last Admin: 06/29/18 08:14 Dose: 1.8 mg Metformin HCl (Glucophage) 1,000 mg PO BIDMEALS [facility] Multivitamins/Minerals (Centrum) 1 tab PO DAILY [facility] Last Admin: 06/29/18 08:09 Dose: 1 tab Omeprazole (Omeprazole) 20 mg PO ACBREAKFAST [facility] Last Admin: 06/29/18 06:38 Dose: 20 mg Polyethylene Glycol (Miralax) 17 gm PO DAILY PRN PRN Reason: Constipation Potassium Chloride (Klor-Con 10) 10 meq PO BID [facility] Last Admin: 06/29/18 08:09 Dose: 10 meq Rosuvastatin Calcium (Crestor) 2.5 mg PO DAILY [facility] Last Admin: 06/29/18 08:09 Dose: 2.5 mg Discontinued Medications Sodium Chloride (Normal Saline) Confirm Administered Dose 1,000 mls @ as directed .ROUTE .STK-MED ONE Stop: 06/28/18 12:52 Last Admin: 06/28/18 16:38 Dose: Not Given Sodium Chloride (Normal Saline) Confirm Administered Dose 1,000 mls @ as directed .ROUTE .STK-MED ONE Stop: 06/28/18 14:49 Last Admin: 06/28/18 16:39 Dose: Not Given Sodium Chloride (Normal Saline) 1,000 mls @ 999 mls/hr IV .BOLUS ONE Stop: 06/28/18 14:00 Last Admin: 06/28/18 13:45 Dose: 999 mls/hr Sodium Chloride (Normal Saline) 500 mls @ 999 mls/hr IV .BOLUS ONE Stop: 06/28/18 17:12 Last Admin: 06/28/18 14:45 Dose: 999 mls/hr Insulin Aspart (Novolog) Confirm Administered Dose 300 unit .ROUTE .STK-MED ONE Stop: 06/28/18 12:52 Last Admin: 06/28/18 16:38 Dose: Not Given Insulin Aspart (Novolog) 10 unit SUBCUT ONETIME ONE Stop: 06/28/18 13:01 Last Admin: 06/28/18 13:05 Dose: 10 unit - Exam Quality Assessment: DVT Prophylaxis (Arnav stockings). No: Supplemental Oxygen General: Alert, Oriented, Cooperative, No Acute Distress Lungs: Clear to Auscultation, Normal Respiratory Effort Cardiovascular: Regular Rate, Regular Rhythm, No Murmurs GI/Abdominal Exam: Normal Bowel Sounds, Soft, Non-Tender, No Distention Skin: Warm, Dry Neurological: Normal Speech Psy/Mental Status: Alert, Normal Affect, Normal Mood - Problem List Review Problem List Initiated/Reviewed/Updated: Yes - My Orders Last 24 Hours: My Active Orders 06/28/18 16:23 Blood Glucose Check, Bedside [RC] QIDACANDBED 06/28/18 20:30 Sodium Chloride 0.9% [Normal Saline] 1,000 ml IV ASDIRECTED 06/28/18 21:00 Acetaminophen [Tylenol] 650 mg PO TID 06/28/18 Dinner [employer] Diet [DIET] 06/29/18 02:17 Alum Hydroxide/Mag Hydroxide [Mag-Al Susp] 30 ml PO Q6H PRN 06/29/18 08:26 Orthostatic Vital Signs [RC] ASDIRECTED 06/29/18 09:42 ARNAV Hose [Antiembolic Hose] [OM.PC] Routine - Plan Plan:: HPI: This is a 57 year old male who presented to the [facility] on 06/28/18 with concerns of chest pain and a high blood sugar. He states he just hasn't been feeling quite right the last few days. The patient had lab work-up in the clinic that showed a glucose of 424 and an elevated creatinine of 1.85. WBC 10.0 without a left shift, ESR 38, troponin <0.10. He had a chest x-ray that has been verbally reported as negative. The EKG showed NSR at 92 bpm. The patient was sent to the [facility] for outpatient fluids and insulin. He received 1.5 liters of normal saline and 11 units of insulin, which brought his blood sugar down to 385. The patient stood up to use the restroom and became very dizzy and diaphoretic. The patient was subsequently admitted for further hemodynamic monitoring, insulin, and fluids. Primary Impression/Plan: Acute kidney injury, improving. Creatinine improved to 1.46 (baseline 1.04) with GFR of 50. Continue holding metformin. Dehydration, improving. Na 133. Decrease IVF to 75 mL/hr. He is tolerating oral food and fluids well. No nausea/vomiting. Hyperglycemia in type 2 diabetic patient, improving. Glucose improved to 295 this morning. He notes that he typically runs around 180 at home. Continue accuchecks QID and correction with medium dose sliding scale novolog. Continue lantus and victoza. Metformin on hold. Orthostatic hypotension. Orthostatic blood pressures positive. Lying 109/62 and standing 84/48. This could be related to dehydration. Patient asymptomatic at this time with position changes. Secondary Impression/Plan: Hypertension. Hold losartan & HCTZ. Dyslipidemia. Continue crestor. Obesity. Patient had been placed on phentermine about 6 weeks ago for weight loss. Will continue to hold this. GERD. Continue daily omeprazole. History of MRSA. Diabetic polyneuropathy. Depression. Continue lexapro. Constipation. Continue miralax PRN. DVT prophylaxis. Score of 2. Arnav stockings. Overall plan: Will continue to give the patient gentle IV fluid replacement. Continue to correct elevated sugars. Repeat labs in AM.
[2018-06-29] MEDS ORDERED: Sodium Chloride 0.9% 500 ML IV SCH (10:00)
[2018-06-29] MEDS: Sodium Chloride 0.9% 1,000 ML IV SCH ×2 (10:05→21:46)
[2018-06-30 07:22] VITALS: BP 130/69
[2018-06-30] MEDS: Omeprazole 20 MG Cap.CR PO SCH (07:32)
[2018-06-30] MEDS: Aspirin 325 MG Tab.EC PO SCH (08:02)
[2018-06-30] MEDS: Multivitamins with Minerals/Iron/Folic Acid/Lycopene Tab PO SCH (08:02)
[2018-06-30] MEDS: Calcium Citrate/Vitamin D3 315 MG-250 Unit Tab PO SCH (08:02)
[2018-06-30] MEDS: Acetaminophen 325 MG Tab PO SCH (08:02)
[2018-06-30] MEDS: Escitalopram 10 MG Tab PO SCH (08:02)
[2018-06-30] MEDS: Insulin Aspart 100 Units/ML 3 ML Pen SUBCUT SCH (08:03)
[2018-06-30] MEDS: Rosuvastatin 5 MG Tab PO SCH (08:03)
[2018-06-30 08:06] LABS: ANION GAP 13.8 mmol/L (5-15); CHLORIDE,CL 100 mmol/L (98-115); SODIUM,NA 138 mmol/L (136-145)
[2018-06-30] MEDS: Insulin Detemir 100 Units/ML 3 ML Pen SUBCUT SCH (08:59)
[2018-06-30] MEDS: Potassium Chloride 10 MEQ Tab.ER PO SCH (08:59)
[2018-06-30] MEDS: Liraglutide (rDNA Origin) 0.6 MG/0.1 ML 3 ML Pen SUBCUT SCH (08:59)
--- NOTE | 2018-06-30 10:59 | PCM.DCSUM1 ---
Discharge Summary - Hospital Course Brief History: This is a 57 year old male who had presented to the [facility] on 06/28/18 with concerns of chest pain and an elevated blood sugar. Lab work up revealed a glucose of 424 and an elevated creatinine of 1.83. Troponin and chest x-ray negative. EKG revealed NSR at 92 bpm. The patient was initially sent to the hospital for outpatient fluids and insulin, however when this was completed the patient went to stand up and became quite dizzy. He was subsequently admitted for further monitoring and fluids. Diagnosis: Stroke: No - Discharge Data Discharge Date: 06/30/18 Discharge Disposition: Home, Self-Care 01 Condition: Good - Patient Summary/Data Complications: None. Consults: None. Labs Pending at D/C: None. Recommended Follow-up Testing/Procedures: Repeat renal function to ensure stability. - Patient Instructions Diet: Diabetic Diet Activity: As Tolerated, Rest and Relax Today Driving: Do Not Drive Showering/Bathing: May Shower Notify Provider of: Fever, Increased Pain, Nausea and/or Vomiting (Elevated blood sugars >350) Other/Special Instructions: Monitor your blood sugars at least 3 times a day and bring a list with to the clinic for your appointment with Mendez Hawley NP. Remember to change positions slowly. - Discharge Plan *PRESCRIPTION DRUG MONITORING PROGRAM REVIEWED*: No *COPY OF PRESCRIPTION DRUG MONITORING REPORT IN PATIENT SUDARSHAN: No Home Medications: Home Meds Aspirin [Ecotrin] 325 mg PO DAILY 02/27/17 [History] Calcium Carbonate/Vitamin D3 [Calcium 600 + Vit D 400 Softgl] 1 tab PO BIDMEALS 02/27/17 [History] Omeprazole 20 mg PO ACBREAKFAST 02/27/17 [History] Polyethylene Glycol 3350 [MiraLAX] 17 gm PO DAILY PRN 02/27/17 [History] Liraglutide [Victoza] 1.8 mg SUBCUT DAILY 03/14/17 [History] metFORMIN [Glucophage] 1,000 mg PO BIDMEALS 03/14/17 [History] Escitalopram [Lexapro] 10 mg PO DAILY 05/11/17 [History] Losartan Potassium 25 mg PO DAILY 08/29/17 [History] Insulin Glarg,Human.Rec.Analog [LantUS Solostar] 13 units SQ DAILY 09/10/17 [ History] Insulin Aspart [NovoLOG] 7 unit SQ TIDMEALS 01/22/18 [History] Multivitamin with Minerals [Multivitamins with Minerals] 1 each PO DAILY [History] Potassium Chloride 10 meq PO BID 01/22/18 [History] Rosuvastatin [Crestor] 2.5 mg PO DAILY 01/22/18 [History] Acetaminophen [Tylenol] 650 mg PO Q6H PRN tablet 03/04/18 [Rx] Acetaminophen [Tylenol] 650 mg PO TID 06/28/18 [History] Referrals: Mendez Hawley, [employer] [Nurse Practitioner] - 07/02/18 (Has appointment already scheduled. ) - Discharge Summary/Plan Comment DC Time >30 min.: No Discharge Summary/Plan Comment: Date of admission: 06/28/18 Date of discharge: 06/30/18 Admitting diagnosis: Primary: Acute kidney injury, Dehydration, Hyperglycemia in Type 2 diabetes, Dizziness Secondary: Hypertension, Dyslipidemia, Obesity, GERD, History of MRSA, Diabetic polyneuropathy, Depression, Constipation Final diagnosis: Primary: Acute kidney injury, resolved; Dehydration, resolved: Hyperglycemia in Type 2 diabetes, improved: Orthostatic hypotension, stable. Secondary: Hypertension, Dyslipidemia, Obesity, GERD, History of MRSA, Diabetic polyneuropathy, Depression, Constipation Procedures performed: None Hospital Course: The patient's hospital course went as expected. He was given IV fluids to correct the dehydration and subsequent kidney injury. Creatinine on discharge down to 1.02, which is at baseline. The patient's blood sugars were monitored and corrected with medium dose sliding scale novolog. His metformin was held. He was continued on lantus and victoza. Blood sugars were between 179-354. Patient notes home readings to be around 180. The patient was noted to have positive orthostatic blood pressures. He was given kishore stockings to wear and instructed to change positions slowly. His losartan and HCTZ were on hold during his stay as his BP was 110-130 systolic. The patient had been placed on phentermine about 6 weeks ago for weight loss. This was held during his stay as well. The patient remained afebrile. New medications on discharge: None. New changes to home medications on discharge: -Hold phentermine -Discontinue HCTZ Regular home medications on discharge: -Novolog 7 units SQ TID with meals -Crestor 2.5 mg po daily -Potassium chloride 10 mEq po BID -Miralax 17 gm po daily PRN -Metformin 1000 mg po BID -Omeprazole 20 mg po daily -Multivitamin 1 tab po daily -Losartan 25 mg po daily -Victoza 1.8 mg SQ daily -Lantus 13 units SQ daily -Lexapro 10 mg po daily -Calcium-Vitamin D 600 mg/400 IU po BID -Tylenol 650 mg po TID -Tylenol 650 mg po every 6 hours PRN -Aspirin 325 mg po daily Condition, Treatment, & Final Disposition: The patient was in stable condition at the time of discharge. He was discharged home with a family member. He will see Mendez Hawley NP as previously planned in the clinic on 07/02/18. Considerations at follow-up include determining restarting phentermine and HCTZ , repeating renal function, and evaluating recent blood sugars. - General Info Date of Service: 06/30/18 Functional Status: Reports: Pain Controlled, Tolerating Diet, Ambulating, Urinating. Denies: New Symptoms - Review of Systems General: Reports: Weakness, Fatigue. Denies: Fever, Malaise, Chills HEENT: Reports: Glasses. Denies: Headaches Pulmonary: Denies: Shortness of Breath, Cough Cardiovascular: Reports: Lightheadedness (with position changes). Denies: Chest Pain, Palpitations, Edema Gastrointestinal: Reports: Diarrhea (looser than normal stools). Denies: Abdominal Pain, Constipation, Decreased Appetite, Nausea, Vomiting Genitourinary: Reports: No Symptoms Neurological: Reports: Dizziness (with position changes). Denies: Headache Psychiatric: Reports: No Symptoms - Patient Data Vitals - Most Recent: Last Vital Signs Temp 99 F 06/30/18 07:00 Pulse 68 06/30/18 07:00 Resp 16 06/30/18 07:00 BP 130/69 06/30/18 07:00 Pulse Ox 98 06/30/18 07:00 Orthostatic Blood Pressure [ 84/48 Standing] Orthostatic Blood Pressure [ 105/56 Sitting] Orthostatic Blood Pressure [ 109/62 Supine] Weight - Most Recent: 268 lb 7 oz I&O - Last 24 hours: Intake & Output 06/29/18 06/30/18 06/30/18 22:59 06:59 14:59 Intake Total 1280 860 Output Total 2150 1900 Balance -870 -1040 Lab Results - Last 24 hrs: Laboratory Results - last 24 hr 06/29/18 06/29/18 06/29/18 Range/Units 11:32 17:48 20:39 Sodium (136-145) mmol/L Potassium (3.3-5.3) mmol/L Chloride (98-115) mmol/L Carbon Dioxide (21.0-32.0) mmol/L Anion Gap (5-15) mmol/L BUN (6-25) mg/dL Creatinine (0.51-1.17) mg/dL Est Cr Clr Drug Dosing mL/min Estimated GFR (MDRD) mL/min Glucose mg/dL POC Glucose 354 H 179 H 258 H (74-106) mg/dl Calcium (8.7-10.3) mg/dL 06/30/18 06/30/18 Range/Units 07:20 07:43 Sodium 138 (136-145) mmol/L Potassium 3.8 (3.3-5.3) mmol/L Chloride 100 (98-115) mmol/L Carbon Dioxide 28.0 (21.0-32.0) mmol/L Anion Gap 13.8 (5-15) mmol/L BUN 26 H (6-25) mg/dL Creatinine 1.02 (0.51-1.17) mg/dL Est Cr Clr Drug Dosing 87.70 mL/min Estimated GFR (MDRD) > 60 mL/min Glucose 235 mg/dL POC Glucose 233 H (74-106) mg/dl Calcium 8.7 (8.7-10.3) mg/dL Med Orders - Current: Current Medications Acetaminophen (Tylenol) 650 mg PO Q6H PRN PRN Reason: analgesia/fever Acetaminophen (Tylenol) 650 mg PO TID [facility] Last Admin: 06/30/18 08:02 Dose: 650 mg Al Hydroxide/Mg Hydroxide (Mag-Al Susp) 30 ml PO Q6H PRN PRN Reason: Dyspepsia Last Admin: 06/29/18 02:30 Dose: 30 ml Aspirin (Ecotrin) 325 mg PO DAILY [facility] Last Admin: 06/30/18 08:02 Dose: 325 mg Calcium Citrate (Calcium Citrate + D) 2 tab PO BIDMEALS [facility] Last Admin: 06/30/18 08:02 Dose: 2 tab Escitalopram Oxalate (Lexapro) 10 mg PO DAILY [facility] Last Admin: 06/30/18 08:02 Dose: 10 mg Sodium Chloride (Normal Saline) 1,000 mls @ 75 mls/hr IV ASDIRECTED [facility] Last Admin: 06/29/18 21:46 Dose: 75 mls/hr Insulin Aspart (Novolog) 0 unit SUBCUT TIDMEALS [facility]; Protocol Last Admin: 06/30/18 08:03 Dose: 4 units Insulin Detemir (Levemir) 13 unit SUBCUT DAILY [facility] Last Admin: 06/30/18 08:59 Dose: 13 unit Liraglutide (Victoza) 1.8 mg SUBCUT DAILY [facility] Last Admin: 06/30/18 08:59 Dose: 1.8 mg Metformin HCl (Glucophage) 1,000 mg PO BIDMEALS [facility] Last Admin: 06/30/18 09:04 Dose: 1,000 mg Multivitamins/Minerals (Centrum) 1 tab PO DAILY [facility] Last Admin: 06/30/18 08:02 Dose: 1 tab Omeprazole (Omeprazole) 20 mg PO ACBREAKFAST [facility] Last Admin: 06/30/18 07:32 Dose: 20 mg Polyethylene Glycol (Miralax) 17 gm PO DAILY PRN PRN Reason: Constipation Potassium Chloride (Klor-Con 10) 10 meq PO BID [facility] Last Admin: 06/30/18 08:59 Dose: 10 meq Rosuvastatin Calcium (Crestor) 2.5 mg PO DAILY [facility] Last Admin: 06/30/18 08:03 Dose: 2.5 mg Discontinued Medications Sodium Chloride (Normal Saline) Confirm Administered Dose 1,000 mls @ as directed .ROUTE .STK-MED ONE Stop: 06/28/18 12:52 Last Admin: 06/28/18 16:38 Dose: Not Given Sodium Chloride (Normal Saline) Confirm Administered Dose 1,000 mls @ as directed .ROUTE .STK-MED ONE Stop: 06/28/18 14:49 Last Admin: 06/28/18 16:39 Dose: Not Given Sodium Chloride (Normal Saline) 1,000 mls @ 999 mls/hr IV .BOLUS ONE Stop: 06/28/18 14:00 Last Admin: 06/28/18 13:45 Dose: 999 mls/hr Sodium Chloride (Normal Saline) 500 mls @ 999 mls/hr IV .BOLUS ONE Stop: 06/28/18 17:12 Last Admin: 06/28/18 14:45 Dose: 999 mls/hr Sodium Chloride (Normal Saline) 1,000 mls @ 100 mls/hr IV ASDIRECTED [facility] Last Admin: 06/28/18 22:59 Dose: 100 mls/hr Insulin Aspart (Novolog) Confirm Administered Dose 300 unit .ROUTE .STK-MED ONE Stop: 06/28/18 12:52 Last Admin: 06/28/18 16:38 Dose: Not Given Insulin Aspart (Novolog) 10 unit SUBCUT ONETIME ONE Stop: 06/28/18 13:01 Last Admin: 06/28/18 13:05 Dose: 10 unit - Exam Quality Assessment: Reports: DVT Prophylaxis (Kishore stockings). Denies: Supplemental Oxygen General: Reports: Alert, Oriented, Cooperative, No Acute Distress Lungs: Reports: Clear to Auscultation, Normal Respiratory Effort Cardiovascular: Reports: Regular Rate, Regular Rhythm, No Murmurs GI/Abdominal Exam: Normal Bowel Sounds, Soft, Non-Tender Extremities: No Pedal Edema Skin: Reports: Warm, Dry, Intact Neurological: Reports: Normal Speech Psy/Mental Status: Reports: Alert, Normal Affect, Normal Mood
== END 2018-06-30 11:45 | disposition home or self-care (01) ==
LOC: KA.IVTHER 12:18 → KA.MS 15:35
PROVIDERS: ADMIT Physician Assistant; ATTEND Nurse Practitioner Family
DX: N17.9 Acute kidney failure, unspecified (principal); E11.65 Type 2 diabetes mellitus with hyperglycemia; E86.0 Dehydration; I95.1 Orthostatic hypotension; E11.42 Type 2 diabetes mellitus with diabetic polyneuropathy; I10 Essential (primary) hypertension; E66.9 Obesity, unspecified; E78.5 Hyperlipidemia, unspecified; K21.9 Gastro-esophageal reflux disease without esophagitis; F32.9 Major depressive disorder, single episode, unspecified; K59.00 Constipation, unspecified; Z79.4 Long term (current) use of insulin; Z79.82 Long term (current) use of aspirin; Z79.899 Other long term (current) drug therapy; Z88.2 Allergy status to sulfonamides; Z88.1 Allergy status to other antibiotic agents
CPT/HCPCS: 36415; 80048; 80053; 82962; 85025; A9270; J1815; J7030; 96360; 96361; G0378; G0379; J3490

== ENCOUNTER 2018-07-08 03:50 | Emergency (ER) | payer BC, MEDICAID ==
[2018-07-08] MEDS ORDERED: Sodium Chloride 0.9% 1,000 ML IV ONE (03:59)
[2018-07-08] MEDS ORDERED: Ketorolac 30 MG/ML SDV IVPUSH ONE (04:19)
[2018-07-08] MEDS ORDERED: Ondansetron 4 MG/2 ML SDV IVPUSH ONE (04:19)
[2018-07-08] MEDS ORDERED: LORazepam 2 MG/ML SDV IVPUSH ONE (04:30)
--- NOTE | 2018-07-08 04:31 | EDM.PDOC ---
ED HPI GENERAL MEDICAL PROBLEM - General Chief Complaint: Headache Stated Complaint: headache Time Seen by Provider: 07/08/18 04:19 Source of Information: Reports: Patient, Family (Sister) History Limitations: Reports: No Limitations - History of Present Illness INITIAL COMMENTS - FREE TEXT/NARRATIVE: Patient is a 57-year-old gentleman who presents to the emergency department this morning with a complaint of headache. Patient states headache began Sunday evening approximately at 11 p.m., and has been persistent since. Woke up this morning with a headache and decided to present to the emergency department. Patient states that PCP discontinued his losartan and hydrochlorothiazide for high blood pressure on 06/30/2018. This was based on recent hospital stay, and patient was found to have controlled BP. Patient is a chronic diabetic, with difficult control, recently discontinued diet medication, and has lost approximately 100 pounds in the last 18 months. Patient describes headache as frontal and pounding. Patient denies chest pain, shortness of breath, blurry vision, dizziness, head trauma, neck stiffness, abdominal pain, or facial numbness. Onset: Gradual Onset Date: 07/06/18 Onset Time: 23:00 Duration: Day(s): Location: Reports: Head Quality: Reports: Ache Severity: Mild Improves with: Reports: None Worsens with: Reports: None Associated Symptoms: Reports: No Other Symptoms, Headaches. Denies: Chest Pain , Fever/Chills, Nausea/Vomiting, Shortness of Breath - Related Data Allergies Allergy/AdvReac Type Severity Reaction Status Date / Time vancomycin Allergy Intermediate Rash Verified 01/22/18 20:46 Sulfa (Sulfonamide Allergy Shortness Verified 01/22/18 20:46 Antibiotics) of Breath Home Meds: Home Meds Aspirin [Ecotrin] 325 mg PO DAILY 02/27/17 [History] Calcium Carbonate/Vitamin D3 [Calcium 600 + Vit D 400 Softgl] 1 tab PO BIDMEALS 02/27/17 [History] Omeprazole 20 mg PO ACBREAKFAST 02/27/17 [History] Polyethylene Glycol 3350 [MiraLAX] 17 gm PO DAILY PRN 02/27/17 [History] Liraglutide [Victoza] 1.8 mg SUBCUT DAILY 03/14/17 [History] metFORMIN [Glucophage] 1,000 mg PO BIDMEALS 03/14/17 [History] Escitalopram [Lexapro] 10 mg PO DAILY 05/11/17 [History] Losartan Potassium 25 mg PO DAILY 08/29/17 [History] Insulin Glarg,Human.Rec.Analog [LantUS Solostar] 13 units SQ DAILY 09/10/17 [ History] Insulin Aspart [NovoLOG] 7 unit SQ TIDMEALS 01/22/18 [History] Multivitamin with Minerals [Multivitamins with Minerals] 1 each PO DAILY [History] Potassium Chloride 10 meq PO BID 01/22/18 [History] Rosuvastatin [Crestor] 2.5 mg PO DAILY 01/22/18 [History] Acetaminophen [Tylenol] 650 mg PO Q6H PRN tablet 03/04/18 [Rx] Acetaminophen [Tylenol] 650 mg PO TID 06/28/18 [History] Past Medical History HEENT History: Reports: Impaired Vision Cardiovascular History: Reports: High Cholesterol, Hypertension Respiratory History: Reports: None Gastrointestinal History: Reports: GERD Genitourinary History: Reports: Chronic Renal Insuffiency Musculoskeletal History: Reports: Amputation Other Musculoskeletal History: 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 Neurological History: Reports: Neuropathy, Diabetic Psychiatric History: Reports: Anxiety, Depression, Panic Attack Endocrine/Metabolic History: Reports: Diabetes, Type II, IDDM, Obesity/BMI 30+ Dermatologic History: Reports: Cellulitis - Infectious Disease History Infectious Disease History: Reports: MRSA - Past Surgical History HEENT Surgical History: Reports: None Cardiovascular Surgical History: Reports: None Respiratory Surgical History: Reports: None GI Surgical History: Reports: Appendectomy, Cholecystectomy, Colonoscopy Male Surgical History: Reports: None Endocrine Surgical History: Reports: None Neurological Surgical History: Reports: None Musculoskeletal Surgical History: Reports: Amputation, Arthroscopic Knee Dermatological Surgical History: Reports: None Social & Family History - Family History Family Medical History: Noncontributory HEENT: Reports: None Cardiac: Reports: None Respiratory: Reports: None GI: Reports: None : Reports: None OBGYN: Reports: None Musculoskeletal: Reports: None Neurological: Reports: None Psychiatric: Reports: None Endocrine/Metabolic: Reports: Diabetes, type II (Brother) Hematologic: Reports: None Immunologic: Reports: None Dermatologic: Reports: None Oncologic: Reports: Prostate - Caffeine Use Caffeine Use: Reports: Soda ED ROS GENERAL - Review of Systems Review Of Systems: ROS reveals no pertinent complaints other than HPI. Constitutional: Reports: No Symptoms HEENT: Reports: No Symptoms Respiratory: Reports: No Symptoms Cardiovascular: Reports: No Symptoms Endocrine: Reports: No Symptoms GI/Abdominal: Reports: No Symptoms : Reports: No Symptoms Musculoskeletal: Reports: No Symptoms Skin: Reports: No Symptoms Neurological: Reports: Headache. Denies: Dizziness, Numbness, Paresthesia, Pre- Existing Deficit, Seizure, Syncope, Trouble Speaking, Difficulty Walking, Change in Speech Psychiatric: Reports: Anxiety Hematologic/Lymphatic: Reports: No Symptoms Immunologic: Reports: No Symptoms - Physical Exam Exam: See Below Exam Limited By: No Limitations General Appearance: Alert, WD/WN, No Apparent Distress Eye Exam: Bilateral Eye: Normal Inspection Ears: Normal External Exam, Normal Canal, Normal TMs Nose: Normal Inspection, Normal Mucosa, No Blood Throat/Mouth: Normal Inspection, Normal Oropharynx, No Airway Compromise Head Exam: Atraumatic, Normocephalic Neck: Normal Inspection, Supple, Non-Tender, Full Range of Motion Respiratory/Chest: No Respiratory Distress, Lungs Clear, Normal Breath Sounds, No Accessory Muscle Use, Chest Non-Tender Cardiovascular: Normal Peripheral Pulses, No Murmur, Tachycardia GI/Abdominal: Normal Bowel Sounds, Soft, Non-Tender, No Organomegaly, No Distention, No Abnormal Bruit, No Mass Neuro Exam (Abbreviated): Alert, Oriented, CN II-XII Intact, Normal Cognition, No Motor/Sensory Deficits Back Exam: Normal Inspection. No: CVA Tenderness (L), CVA Tenderness (R) Extremities: No Pedal Edema, Other (Left foot without toes beyond metatarsal. Right foot normal) Psychiatric: Anxious Skin Exam: Warm, Dry, Intact, Normal Color, No Rash EKG INTERPRETATION EKG Date: 07/08/18 Time: 04:35 Rate (Beats/Min): 110 [place]: Normal P-Wave: Present QRS: Normal ST-T: Normal QT: Normal Comparison: Change From Previous EKG EKG Interpretation Comments: Previous documented EKG on 02/27/2018 showed normal sinus rhythm at 96 Course - Orders/Labs/Meds Orders: Active Orders 24 hr Category Date Time Status EKG Documentation Completion [RC] ASDIRECTED Care 07/08/18 03:59 Active EKG 12 Lead [EK] Routine Ther 07/08/18 03:58 Ordered Labs: Laboratory Tests 07/08/18 07/08/18 Range/Units 04:20 04:20 WBC 5.88 (5.00-10.00) 10^3/uL RBC 3.73 L (4.50-6.00) 10^6/uL Hgb 12.4 L (13.0-17.0) g/dL Hct 34.7 L (40.0-52.0) % MCV 93.0 H (82.0-92.0) fL MCH 33.2 H (27.0-31.0) pg MCHC 35.7 (32.0-36.0) g/dL RDW 13.3 (11.5-14.5) % Plt Count 277 (150-400) 10^3/uL MPV 9.9 (7.4-10.4) fL Immature Gran % (Auto) 0.5 (0.0-5.0) % Neut % (Auto) 82.4 H (50.0-70.0) % Lymph % (Auto) 8.0 L (20.0-40.0) % Mclean % (Auto) 7.1 (2.0-8.0) % Eos % (Auto) 1.7 (1.0-3.0) % Baso % (Auto) 0.3 (0.0-1.0) % Immature Gran # (Auto) 0.03 (0.00-0.50) 10^3/uL Neut # (Auto) 4.84 (2.50-7.00) 10^3/uL Lymph # (Auto) 0.47 L (1.00-4.00) 10^3/uL Mclean # (Auto) 0.42 (0.10-0.80) 10^3/uL Eos # (Auto) 0.10 (0.10-0.30) 10^3/uL Baso # (Auto) 0.02 (0.00-0.10) 10^3/uL Sodium 137 (136-145) mmol/L Potassium 4.3 (3.3-5.3) mmol/L Chloride 100 (98-115) mmol/L Carbon Dioxide 24.4 (21.0-32.0) mmol/L Anion Gap 16.9 H (5-15) mmol/L BUN 14 (6-25) mg/dL Creatinine 1.14 (0.51-1.17) mg/dL Est Cr Clr Drug Dosing TNP Estimated GFR (MDRD) > 60 mL/min Glucose 193 mg/dL Calcium 8.0 L (8.7-10.3) mg/dL Total Bilirubin 0.9 (0.2-1.0) mg/dL AST 35 (15-37) U/L ALT 40 (12-78) U/L Alkaline Phosphatase 125 H (46-116) IU/L Total Protein 7.6 (6.4-8.2) g/dL Albumin 3.33 (3.00-4.80) g/dL Meds: Medications Discontinued Medications Generic Name Dose Route Start Last Admin Trade Name Freq PRN Reason Stop Dose Admin Sodium Chloride 1,000 mls @ 2,000 mls/hr 07/08/18 03:59 Normal Saline IV 07/08/18 04:28 .BOLUS ONE Ketorolac Tromethamine 30 mg 07/08/18 04:19 Toradol IVPUSH 07/08/18 04:20 ONETIME ONE Lorazepam 0.5 mg 07/08/18 04:30 Ativan IVPUSH 07/08/18 04:31 ONETIME ONE Ondansetron HCl 4 mg 07/08/18 04:19 Zofran IVPUSH 07/08/18 04:20 ONETIME ONE - Re-Assessments/Exams Free Text/Narrative Re-Assessment/Exam: 07/08/18 04:58 Patient afebrile, nontoxic appearing, vital signs stable, BP 140/60. Headache improving. Patient has appointment today with Mendez Hawley at [facility] and decision will be made on medication at that juncture. Departure - Departure Time of Disposition: 05:02 Disposition: Home, Self-Care 01 Condition: Good Clinical Impression: Anxiety and depression Headache Qualifiers: Headache type: unspecified Headache chronicity pattern: episodic headache Intractability: not intractable Qualified Code(s): R51 - Headache - Discharge Information Instructions: General Headache Without Cause, [id number] Referrals: Mendez Hawley, [facility] [Nurse Practitioner] - Forms: ED Department Discharge Additional Instructions: Follow-up with Mendez Hawley at [facility] today for recheck and medication evaluation - My Orders Last 24 Hours: My Active Orders 07/08/18 03:58 EKG 12 Lead [EK] Routine 07/08/18 03:59 EKG Documentation Completion [RC] ASDIRECTED - Assessment/Plan Last 24 Hours: My Active Orders 07/08/18 03:58 EKG 12 Lead [EK] Routine 07/08/18 03:59 EKG Documentation Completion [RC] ASDIRECTED Assessment:: Headache Plan: Follow-up at [facility]
[2018-07-08 04:45] LABS: ANION GAP 16.9 mmol/L (5-15); CHLORIDE,CL 100 mmol/L (98-115); SODIUM,NA 137 mmol/L (136-145)
[2018-07-08 06:24] VITALS: BP 126/55
== END 2018-07-08 05:45 | disposition home or self-care (01) ==
LOC: KA.ED 03:50
DX: F41.8 Other specified anxiety disorders (principal); R51 Headache
CPT/HCPCS: 36415; 80053; 85025; 96374; 96375; 99284; J1885; J2060; J2405; J7030

== ENCOUNTER 2018-07-08 19:42 | Emergency (ER) | payer BC, MEDICAID ==
[2018-07-08 20:01] VITALS: BP 139/63
[2018-07-08] MEDS ORDERED: Sodium Chloride 0.9% 1,000 ML IV ONE (20:28)
[2018-07-08] MEDS ORDERED: Ondansetron 4 MG/2 ML SDV IVPUSH ONE ×2 (20:28→21:42)
--- NOTE | 2018-07-08 20:34 | EDM.PDOC ---
ED HPI GENERAL MEDICAL PROBLEM - General Stated Complaint: DIZZY, THROWING UP Time Seen by Provider: 07/08/18 20:21 Source of Information: Reports: Patient, Family History Limitations: Reports: No Limitations - History of Present Illness INITIAL COMMENTS - FREE TEXT/NARRATIVE: Patient presents with nausea and vomiting for the last 3 hours. He still has a headache; he was here in ER about 16 hours ago with headache and was treated. The headache improved but didn't completely resolve and has come back some. Pt has felt dizzy too. Abdomen Pain Score (Numeric/FACES): 8 - Related Data Allergies Allergy/AdvReac Type Severity Reaction Status Date / Time vancomycin Allergy Intermediate Rash Verified 07/08/18 06:27 Sulfa (Sulfonamide Allergy Shortness Verified 07/08/18 06:27 Antibiotics) of Breath Home Meds: Home Meds Aspirin [Ecotrin] 325 mg PO DAILY 02/27/17 [History] Calcium Carbonate/Vitamin D3 [Calcium 600 + Vit D 400 Softgl] 1 tab PO BIDMEALS 02/27/17 [History] Omeprazole 20 mg PO ACBREAKFAST 02/27/17 [History] Polyethylene Glycol 3350 [MiraLAX] 17 gm PO DAILY PRN 02/27/17 [History] Liraglutide [Victoza] 1.8 mg SUBCUT DAILY 03/14/17 [History] metFORMIN [Glucophage] 1,000 mg PO BIDMEALS 03/14/17 [History] Escitalopram [Lexapro] 10 mg PO DAILY 05/11/17 [History] Insulin Glarg,Human.Rec.Analog [LantUS Solostar] 15 units SQ DAILY 09/10/17 [ History] Insulin Aspart [NovoLOG] 7 unit SQ TIDMEALS 01/22/18 [History] Multivitamin with Minerals [Multivitamins with Minerals] 1 each PO DAILY [History] Rosuvastatin [Crestor] 2.5 mg PO DAILY 01/22/18 [History] Acetaminophen [Tylenol] 650 mg PO Q6H PRN tablet 03/04/18 [Rx] Acetaminophen [Tylenol] 650 mg PO TID 06/28/18 [History] Phentermine HCl [Adipex-P] 37.5 mg PO DAILY 07/08/18 [History] Past Medical History HEENT History: Reports: Impaired Vision Cardiovascular History: Reports: High Cholesterol, Hypertension Respiratory History: Reports: None Gastrointestinal History: Reports: GERD Genitourinary History: Reports: Chronic Renal Insuffiency Musculoskeletal History: Reports: Amputation Other Musculoskeletal History: 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 Neurological History: Reports: Neuropathy, Diabetic Psychiatric History: Reports: Anxiety, Depression, Panic Attack Endocrine/Metabolic History: Reports: Diabetes, Type II, IDDM, Obesity/BMI 30+ Dermatologic History: Reports: Cellulitis - Infectious Disease History Infectious Disease History: Reports: MRSA - Past Surgical History HEENT Surgical History: Reports: None Cardiovascular Surgical History: Reports: None Respiratory Surgical History: Reports: None GI Surgical History: Reports: Appendectomy, Cholecystectomy, Colonoscopy Male Surgical History: Reports: None Endocrine Surgical History: Reports: None Neurological Surgical History: Reports: None Musculoskeletal Surgical History: Reports: Amputation, Arthroscopic Knee Dermatological Surgical History: Reports: None Social & Family History - Family History Family Medical History: Noncontributory HEENT: Reports: None Cardiac: Reports: None Respiratory: Reports: None GI: Reports: None : Reports: None OBGYN: Reports: None Musculoskeletal: Reports: None Neurological: Reports: None Psychiatric: Reports: None Endocrine/Metabolic: Reports: Diabetes, type II Hematologic: Reports: None Immunologic: Reports: None Dermatologic: Reports: None Oncologic: Reports: Prostate - Caffeine Use Caffeine Use: Reports: Soda ED ROS GENERAL - Review of Systems Review Of Systems: See Below Constitutional: Reports: Fever, Diaphoresis. Denies: Weakness HEENT: Denies: Throat Pain, Vision Change Respiratory: Denies: Shortness of Breath, Cough Cardiovascular: Denies: Chest Pain, Syncope GI/Abdominal: Reports: Abdominal Pain (upset, rumbling), Nausea, Vomiting. Denies: Constipation, Diarrhea : Denies: Dysuria, Flank Pain Musculoskeletal: Reports: No Symptoms Skin: Reports: Diaphoresis. Denies: Cyanosis, Jaundice, Mottled, Pallor Neurological: Reports: Dizziness, Headache. Denies: Confusion, Seizure, Syncope , Trouble Speaking, Weakness Psychiatric: Denies: Agitation, Anxiety, Confusion ED EXAM, GI/ABD - Physical Exam Exam: See Below Exam Limited By: No Limitations General Appearance: Alert, WD/WN, No Apparent Distress Eyes: Bilateral: Normal Appearance, EOMI Ears: Normal External Exam, Hearing Grossly Normal Nose: Normal Inspection, No Blood Throat/Mouth: Normal Inspection, Normal Lips, Normal Oropharynx, Normal Voice, No Airway Compromise Head: Atraumatic, Normocephalic Neck: Normal Inspection, Supple, Full Range of Motion, Tender Lateral (right paraspinal muscles). No: Tender Midline Respiratory/Chest: No Respiratory Distress, Lungs Clear, Normal Breath Sounds, No Accessory Muscle Use Cardiovascular: Regular Rate, Rhythm, No Murmur GI/Abdominal Exam: Normal Bowel Sounds, Soft, Non-Tender, No Organomegaly, No Distention Back Exam: Normal Inspection, Full Range of Motion. No: CVA Tenderness (L), CVA Tenderness (R) Extremities: Normal Inspection, Normal Range of Motion Neurological: Alert, Oriented, Normal Cognition, No Motor/Sensory Deficits Psychiatric: Normal Affect, Normal Mood Skin Exam: Warm, Intact, Normal Color, No Rash, Diaphoretic Course - Vital Signs Last Recorded V/S: Last Vital Signs Temp 105.1 F H 07/08/18 19:59 Pulse 118 H 07/08/18 19:59 Resp 20 07/08/18 19:59 BP 139/63 07/08/18 19:59 Pulse Ox 94 L 07/08/18 19:59 - Orders/Labs/Meds Orders: Active Orders 24 hr Category Date Time Status UA W/MICROSCOPIC [URIN] Stat Lab 07/08/18 20:28 Ordered Labs: Laboratory Tests 07/08/18 07/08/18 07/08/18 Range/Units 20:32 20:32 20:32 WBC 4.28 L (5.00-10.00) 10^3/uL RBC 3.69 L (4.50-6.00) 10^6/uL Hgb 11.9 L (13.0-17.0) g/dL Hct 34.2 L (40.0-52.0) % MCV 92.7 H (82.0-92.0) fL MCH 32.2 H (27.0-31.0) pg MCHC 34.8 (32.0-36.0) g/dL RDW 13.1 (11.5-14.5) % Plt Count 240 (150-400) 10^3/uL MPV 10.0 (7.4-10.4) fL Immature Gran % (Auto) 0.7 (0.0-5.0) % Neut % (Auto) 82.3 H (50.0-70.0) % Lymph % (Auto) 9.3 L (20.0-40.0) % [place]kin % (Auto) 6.8 (2.0-8.0) % Eos % (Auto) 0.9 L (1.0-3.0) % Baso % (Auto) 0.0 (0.0-1.0) % Immature Gran # (Auto) 0.03 (0.00-0.50) 10^3/uL Neut # (Auto) 3.52 (2.50-7.00) 10^3/uL Lymph # (Auto) 0.40 L (1.00-4.00) 10^3/uL [place]kin # (Auto) 0.29 (0.10-0.80) 10^3/uL Eos # (Auto) 0.04 L (0.10-0.30) 10^3/uL Baso # (Auto) 0.00 (0.00-0.10) 10^3/uL Sodium 133 L (136-145) mmol/L Potassium 4.1 (3.3-5.3) mmol/L Chloride 98 (98-115) mmol/L Carbon Dioxide 23.2 (21.0-32.0) mmol/L Anion Gap 15.9 H (5-15) mmol/L BUN 16 (6-25) mg/dL Creatinine 1.11 (0.51-1.17) mg/dL Est Cr Clr Drug Dosing 80.59 mL/min Estimated GFR (MDRD) > 60 mL/min Glucose 225 mg/dL Lactic Acid 1.5 (0.4-2.0) mmol/L Calcium 7.8 L (8.7-10.3) mg/dL Total Bilirubin 1.1 H (0.2-1.0) mg/dL AST 79 H (15-37) U/L ALT 85 H (12-78) U/L Alkaline Phosphatase 178 H (46-116) IU/L Total Protein 7.1 (6.4-8.2) g/dL Albumin 3.02 (3.00-4.80) g/dL Meds: Medications Discontinued Medications Generic Name Dose Route Start Last Admin Trade Name Freq PRN Reason Stop Dose Admin Sodium Chloride 1,000 mls @ 999 mls/hr 07/08/18 20:28 07/08/18 21:02 Normal Saline IV 07/08/18 21:28 999 mls/hr .BOLUS ONE Administration Ondansetron HCl 4 mg 07/08/18 20:28 07/08/18 21:02 Zofran IVPUSH 07/08/18 20:29 4 mg ONETIME ONE Administration Ondansetron HCl 4 mg 07/08/18 21:42 Zofran IVPUSH 07/08/18 21:43 ONETIME ONE - Re-Assessments/Exams Free Text/Narrative Re-Assessment/Exam: 07/08/18 21:45 Patient is feeling better but still some nausea. Will give another 4 mg of Zofran. Temp is down. Discussed findings and plan with patient and his sister. LFTs are somewhat elevated tonight but they weren't this morning when checked; likely due to the vomiting but should be rechecked. Discussed this with patient and his sister that it should be rechecked. He is scheduled to see his PCP tomorrow. Patient discharged to home in stable condition. Departure - Departure Time of Disposition: 21:43 Disposition: Home, Self-Care 01 Condition: Good Clinical Impression: Hypovolemia associated with vomiting, Orthostatic lightheadedness, Vertigo N&V (nausea and vomiting) Qualifiers: Vomiting type: unspecified Vomiting Intractability: unspecified Qualified Code( s): R11.2 - Nausea with vomiting, unspecified - Discharge Information Referrals: James Cook PA-C [Primary Care Provider] - Additional Instructions: 1. Follow up with your PCP tomorrow as scheduled. - My Orders Last 24 Hours: My Active Orders 07/08/18 20:28 UA W/MICROSCOPIC [URIN] Stat - Assessment/Plan Last 24 Hours: My Active Orders 07/08/18 20:28 UA W/MICROSCOPIC [URIN] Stat
[2018-07-08 21:12] LABS: ANION GAP 15.9 mmol/L (5-15); CHLORIDE,CL 98 mmol/L (98-115); SODIUM,NA 133 mmol/L (136-145)
== END 2018-07-08 22:00 | disposition home or self-care (01) ==
LOC: KA.ED 19:42
DX: E86.1 Hypovolemia (principal); R11.2 Nausea with vomiting, unspecified; R42 Dizziness and giddiness
CPT/HCPCS: 80053; 83605; 85025; 96361; 96374; 96376; 99284; J2405; J7030

== ENCOUNTER 2018-07-10 11:18 | Observation (INO) | payer BC, MEDICAID ==
[2018-07-10] MEDS: Sodium Chloride 0.9% 1,500 ML IV ONE ×2 (13:29→14:29)
[2018-07-10] MEDS ORDERED: Diatrizoate Meglumine/Diatrizoate Sodium 37% 120 ML Bottle PO ONE (14:29)
[2018-07-10] MEDS ORDERED: Iopamidol 612 MG/ML 75 ML Bottle IV ONE (14:29)
[2018-07-10] MEDS ORDERED: Sodium Chloride 0.9% 50 ML IV SCH (14:30)
[2018-07-10] MEDS ORDERED: Sodium Chloride 0.9% 5 ML Syringe FLUSH PRN (16:49)
[2018-07-10] MEDS: Ondansetron 4 MG/2 ML SDV IV PRN (17:15)
[2018-07-10] MEDS ORDERED: Acetaminophen 325 MG Tab PO ONE (17:32)
[2018-07-10] MEDS: Insulin Aspart 100 Units/ML 3 ML Pen SUBCUT SCH (17:56)
[2018-07-10] MEDS: traMADol 50 MG Tab PO PRN (21:20)
[2018-07-10] MEDS: Sodium Chloride 0.9% 1,000 ML IV SCH (22:00)
[2018-07-11] MEDS: traMADol 50 MG Tab PO PRN (04:42)
[2018-07-11] MEDS: Sodium Chloride 0.9% 1,000 ML IV SCH (08:09)
[2018-07-11] MEDS: Ondansetron 4 MG/2 ML SDV IV PRN (08:09)
[2018-07-11 08:20] LABS: ANION GAP 12.6 mmol/L (5-15); CHLORIDE,CL 103 mmol/L (98-115); SODIUM,NA 137 mmol/L (136-145)
[2018-07-11] MEDS ORDERED: Escitalopram 10 MG Tab PO SCH (09:00)
[2018-07-11] MEDS ORDERED: Aspirin 325 MG Tab.EC PO SCH (09:00)
[2018-07-11] MEDS ORDERED: Insulin Detemir 100 Units/ML 3 ML Pen SUBCUT SCH (09:00)
[2018-07-11] MEDS: Insulin Aspart 100 Units/ML 3 ML Pen SUBCUT SCH ×3 (09:10→18:22)
[2018-07-11] MEDS ORDERED: SUMAtriptan 6 MG/0.5 ML SDV SUBCUT ONE (10:30)
[2018-07-11] MEDS ORDERED: Metoclopramide 10 MG/2 ML SDV IVPUSH ONE (10:30)
[2018-07-11] MEDS ORDERED: Ketorolac 30 MG/ML SDV IVPUSH ONE (10:30)
[2018-07-11] MEDS ORDERED: SUMAtriptan 25 MG Tab PO ONE (11:10)
[2018-07-11 15:47] VITALS: BP 105/58
--- NOTE | 2018-07-11 17:39 | PCM.DCSUM1 ---
Discharge Summary - Hospital Course Free Text/Narrative:: Date of admission: 07/10/18 Date of discharge: 07/11/18 Admission diagnoses: 1. Dehydration 2. Headache 3. Elevated liver enzymes 4. Diabetes mellitus, type 2 5. Morbid obesity 6. Generalized anxiety disorder 7. GERD 8. Constipation Discharge diagnoses: 1. Dehydration, resolved 2. Headache, clinically fitting with migraine type, resolved 3. Elevated liver enzymes, improving 4. Hepatic steatosis 5. Diabetes mellitus, type 2 6. Morbid obesity 7. Generalized anxiety disorder 8. GERD 9. Constipation Consultations: None Procedures: - 07/10/18 CT abdomen/pelvis: Hepatic steatosis with peripancreatic and periportal adenopathy, but without discrete hepatic or pancreatic masses noted. Hepatic steatosis can mask underlying lesions. If there are persistent clinical concerns, MRI of the liver and pancreas, liver/pancreatic mass protocol, could be considered on an elective basis. - 07/11/18 MRI abdomen: Verbally reported as no acute abnormalities. Hospital course: Mr. Huertas is a 57yoM with a history notable for DMT2, morbid obesity, and several recent hospitalizations for diabetic foot infections and subsequent surgeries, who was evaluated in the ED and clinic four times in the past week for headache and other nonspecific symptoms and noted to have dehydration and elevated liver enzymes. Antihypertensives were stopped and despite this, he continued to be clinically dehydrated and in the setting of desiring proceeding with imaging of the abdomen with contrast, was admitted for IVF and monitoring. With fluids, his hemodynamic status improved to normal. His headache was initially treated with tramadol without benefit; subsequently had complete resolution with one dose of ketorolac 30mg, metoclopramide 10mg, and sumatriptan 25mg, as constellation of symptoms was suggestive of migraine. Liver enzymes improved on recheck and he continued to deny any abdominal pain. Metformin, liraglutide, phentermine, statin, and Tylenol were held during his stay. He was instructed to resume liraglutide and metformin tomorrow, but continue holding phentermine, statin, and Tylenol. Of note, he has been on rosuvastatin 2.5mg since 2012; the highest LDL in the past 6 years = 90, most recent 02/2018 = 48, and most in the 60s-70s. At follow-up recommend the following: - Recheck of complete metabolic panel - Consider ongoing treatment with statin and Tylenol - Discharge Data Discharge Date: 07/11/18 Discharge Disposition: DC/Tfer to In Rehab Fac 62 Condition: Good - Patient Instructions Diet: Usual Diet as Tolerated Activity: As Tolerated Other/Special Instructions: Ensure you are not taking more than 3000mg Tylenol daily. Bring all your medications with you to your appointment with Mendez on Sunday. - Discharge Plan *PRESCRIPTION DRUG MONITORING PROGRAM REVIEWED*: Not Applicable *COPY OF PRESCRIPTION DRUG MONITORING REPORT IN PATIENT SUDARSHAN: Not Applicable Prescriptions/Med Rec: SUMAtriptan [Imitrex] 50 mg PO DAILY PRN #9 tablet PRN Reason: Headache Home Medications: Home Meds Aspirin [Ecotrin] 325 mg PO DAILY 02/27/17 [History] Calcium Carbonate/Vitamin D3 [Calcium 600 + Vit D 400 Softgl] 1 tab PO BIDMEALS 02/27/17 [History] Omeprazole 20 mg PO ACBREAKFAST 02/27/17 [History] Polyethylene Glycol 3350 [MiraLAX] 17 gm PO DAILY PRN 02/27/17 [History] Liraglutide [Victoza] 1.8 mg SUBCUT DAILY 03/14/17 [History] metFORMIN [Glucophage] 1,000 mg PO BIDMEALS 03/14/17 [History] Escitalopram [Lexapro] 10 mg PO DAILY 05/11/17 [History] Insulin Glarg,Human.Rec.Analog [LantUS Solostar] 15 units SQ DAILY 09/10/17 [ History] Insulin Aspart [NovoLOG] 7 unit SQ TIDMEALS 01/22/18 [History] Multivitamin with Minerals [Multivitamins with Minerals] 1 each PO DAILY [History] Acetaminophen [Tylenol] 650 mg PO Q6H PRN tablet 03/04/18 [Rx] SUMAtriptan [Imitrex] 50 mg PO DAILY PRN #9 tablet 07/11/18 [Rx] Patient Handouts: Migraine Headache, [id number] Referrals: Mendez Hawley NP [Primary Care Provider] - 07/15/18 - Discharge Summary/Plan Comment DC Time >30 min.: Yes - General Info Date of Service: 07/11/18 Subjective Update: Ongoing headache with light sensitivity, noise sensitivity, and nausea. Denies any other GI symptoms, including abdominal pain, vomiting, diarrhea, or constipation. Denies hx of migraines, but admits to history of occasional headaches in the past. Has been taking Tylenol at home without much improvement , but is unable to quantify who much or how often he was taking. He states the unrelenting headache was the reason for him seeking ED and clinic care four times in the past week. Taking his other medications as prescribed. Interval update: Following treatment with ketorolac, metoclopramide, and sumatriptan, he had complete resolution of his headache and nausea. - Patient Data Vitals - Most Recent: Last Vital Signs Temp 36.6 C 07/11/18 15:00 Pulse 79 07/11/18 15:47 Resp 18 07/11/18 15:00 BP 105/58 L 07/11/18 15:47 Pulse Ox 99 07/11/18 15:00 Weight - Most Recent: 125.237 kg I&O - Last 24 hours: Intake & Output 07/11/18 07/11/18 07/11/18 06:59 14:59 22:59 Intake Total 1234 2018 Output Total 1700 600 Balance -466 1418 Lab Results - Last 24 hrs: Laboratory Results - last 24 hr 07/10/18 07/11/18 07/11/18 Range/Units 20:45 07:23 07:50 WBC 3.88 L (5.00-10.00) 10^3/uL RBC 3.33 L (4.50-6.00) 10^6/uL Hgb 10.6 L D (13.0-17.0) g/dL Hct 31.0 L (40.0-52.0) % MCV 93.1 H (82.0-92.0) fL MCH 31.8 H (27.0-31.0) pg MCHC 34.2 (32.0-36.0) g/dL RDW 13.5 (11.5-14.5) % Plt Count 155 (150-400) 10^3/uL MPV 10.3 (7.4-10.4) fL Immature Gran % (Auto) 0.3 (0.0-5.0) % Neut % (Auto) 68.7 (50.0-70.0) % Lymph % (Auto) 20.6 (20.0-40.0) % [place] % (Auto) 8.8 H (2.0-8.0) % Eos % (Auto) 1.3 (1.0-3.0) % Baso % (Auto) 0.3 (0.0-1.0) % Immature Gran # (Auto) 0.01 (0.00-0.50) 10^3/uL Neut # (Auto) 2.67 (2.50-7.00) 10^3/uL Lymph # (Auto) 0.80 L (1.00-4.00) 10^3/uL [place] # (Auto) 0.34 (0.10-0.80) 10^3/uL Eos # (Auto) 0.05 L (0.10-0.30) 10^3/uL Baso # (Auto) 0.01 (0.00-0.10) 10^3/uL Sodium (136-145) mmol/L Potassium (3.3-5.3) mmol/L Chloride (98-115) mmol/L Carbon Dioxide (21.0-32.0) mmol/L Anion Gap (5-15) mmol/L BUN (6-25) mg/dL Creatinine (0.51-1.17) mg/dL Est Cr Clr Drug Dosing mL/min Estimated GFR (MDRD) mL/min Glucose mg/dL POC Glucose 225 H 241 H (74-106) mg/dl Calcium (8.7-10.3) mg/dL Total Bilirubin (0.2-1.0) mg/dL AST (15-37) U/L ALT (12-78) U/L Alkaline Phosphatase (46-116) IU/L Total Protein (6.4-8.2) g/dL Albumin (3.00-4.80) g/dL Amylase (25-125) U/L Lipase (73-393) U/L 07/11/18 07/11/18 Range/Units 07:50 11:03 WBC (5.00-10.00) 10^3/uL RBC (4.50-6.00) 10^6/uL Hgb (13.0-17.0) g/dL Hct (40.0-52.0) % MCV (82.0-92.0) fL MCH (27.0-31.0) pg MCHC (32.0-36.0) g/dL RDW (11.5-14.5) % Plt Count (150-400) 10^3/uL MPV (7.4-10.4) fL Immature Gran % (Auto) (0.0-5.0) % Neut % (Auto) (50.0-70.0) % Lymph % (Auto) (20.0-40.0) % [place] % (Auto) (2.0-8.0) % Eos % (Auto) (1.0-3.0) % Baso % (Auto) (0.0-1.0) % Immature Gran # (Auto) (0.00-0.50) 10^3/uL Neut # (Auto) (2.50-7.00) 10^3/uL Lymph # (Auto) (1.00-4.00) 10^3/uL [place] # (Auto) (0.10-0.80) 10^3/uL Eos # (Auto) (0.10-0.30) 10^3/uL Baso # (Auto) (0.00-0.10) 10^3/uL Sodium 137 (136-145) mmol/L Potassium 3.6 (3.3-5.3) mmol/L Chloride 103 (98-115) mmol/L Carbon Dioxide 25.0 (21.0-32.0) mmol/L Anion Gap 12.6 (5-15) mmol/L BUN 13 (6-25) mg/dL Creatinine 0.85 (0.51-1.17) mg/dL Est Cr Clr Drug Dosing 108.36 mL/min Estimated GFR (MDRD) > 60 mL/min Glucose 233 mg/dL POC Glucose 308 H (74-106) mg/dl Calcium 7.8 L (8.7-10.3) mg/dL Total Bilirubin 1.6 H (0.2-1.0) mg/dL AST 54 H (15-37) U/L ALT 86 H (12-78) U/L Alkaline Phosphatase 269 H (46-116) IU/L Total Protein 6.2 L (6.4-8.2) g/dL Albumin 2.50 L (3.00-4.80) g/dL Amylase 25 (25-125) U/L Lipase 338 (73-393) U/L Med Orders - Current: Current Medications Aspirin (Ecotrin) 325 mg PO DAILY [facility] Last Admin: 07/11/18 09:08 Dose: 325 mg Escitalopram Oxalate (Lexapro) 10 mg PO DAILY [facility] Last Admin: 07/11/18 09:08 Dose: 10 mg Sodium Chloride (Normal Saline) 1,000 mls @ 100 [facility]ls[facility] Last Admin: 07/11/18 08:09 Dose: 100 mls/hr Insulin Aspart (Novolog) 7 unit SUBCUT TIDMEALS [facility] Last Admin: 07/11/18 11:05 Dose: 7 unit Insulin Detemir (Levemir) 15 unit SUBCUT DAILY [facility] Last Admin: 07/11/18 09:08 Dose: 15 unit Ondansetron HCl (Zofran) 4 mg IV Q4H PRN PRN Reason: Nausea/Vomiting Last Admin: 07/11/18 08:09 Dose: 4 mg Sodium Chloride (Syrex Flush) 5 ml FLUSH Q8HR PRN PRN Reason: Keep Vein Open Discontinued Medications Acetaminophen (Tylenol) 650 mg PO NOW ONE Stop: 07/10/18 17:33 Last Admin: 07/10/18 17:48 Dose: 650 mg Diatrizoate Meglum/Diatrizoate Sod (Gastrografin 37%) 120 ml PO ONETIME ONE Stop: 07/10/18 14:30 Last Admin: 07/10/18 14:30 Dose: 120 ml Sodium Chloride (Normal Saline) 1,500 mls @ 999 mls/hr IV .BOLUS ONE Stop: 07/10/18 14:00 Last Admin: 07/10/18 14:29 Dose: 999 mls/hr Sodium Chloride (Normal Saline) 50 mls @ 200 mls[facility]hr [facility] Last Admin: 07/10/18 16:04 Dose: 200 mls/hr Iopamidol (Isovue-300 (61%)) 75 ml IV ONETIME ONE Stop: 07/10/18 14:30 Last Admin: 07/10/18 16:04 Dose: 75 ml Ketorolac Tromethamine (Toradol) 30 mg IVPUSH ONETIME ONE Stop: 07/11/18 10:31 Last Admin: 07/11/18 10:53 Dose: 30 mg Metoclopramide HCl (Reglan) 10 mg IVPUSH ONETIME ONE Stop: 07/11/18 10:31 Last Admin: 07/11/18 10:53 Dose: 10 mg Sumatriptan Succinate (Imitrex) 6 mg SUBCUT ONETIME ONE Stop: 07/11/18 10:31 Last Admin: 07/11/18 11:38 Dose: Not Given Sumatriptan Succinate (Imitrex) 25 mg PO ONETIME ONE Stop: 07/11/18 11:11 Last Admin: 07/11/18 11:14 Dose: 25 mg Tramadol HCl (Ultram) 50 mg PO Q6H PRN PRN Reason: Pain Last Admin: 07/11/18 04:42 Dose: 50 mg - Exam Physical Findings Comments:: GENERAL: Morbidly obese white male sitting in bedside chair in no acute distress. HEENT: Normocephalic, atraumatic. Conjunctiva clear. Nares patent without discharge. Mucous membranes moist, posterior pharynx unremarkable. NECK: Supple, no masses. CV: Regular rate and rhythm, no murmurs, rubs, or gallops. 2+ radial pulses. PULMONARY: Normal effort, clear to auscultation bilaterally, no wheezes, rales, or rhonchi. ABDOMEN: Positive bowel sounds, soft, nontender, nondistended. EXTREMITIES: No edema, cyanosis, or clubbing. MUSCULOSKELETAL: Moves all extremities well. NEUROLOGICAL: CN II-XII intact. Sensation intact to light touch in distal extremities. Strength 5/5 in distal extremities. Gait not tested. DERMATOLOGIC: No rashes or suspicious lesions in exposed areas. PSYCHIATRIC: Alert, interactive, mildly anxious affect.
[2018-07-11] MEDS ORDERED: GADOPENTETATE DIMEGLUMINE IV ONE (18:26)
== END 2018-07-11 19:00 ==
LOC: KA.CT 11:18 → KA.MS 16:30
PROVIDERS: ADMIT Nurse Practitioner Family; ATTEND Family Medicine
DX: E86.0 Dehydration (principal); R94.5 Abnormal results of liver function studies; K76.0 Fatty (change of) liver, not elsewhere classified; E11.42 Type 2 diabetes mellitus with diabetic polyneuropathy; F41.1 Generalized anxiety disorder; K21.9 Gastro-esophageal reflux disease without esophagitis; K59.00 Constipation, unspecified; E66.01 Morbid (severe) obesity due to excess calories; Z68.36 Body mass index [BMI] 36.0-36.9, adult; Z79.4 Long term (current) use of insulin; Z79.82 Long term (current) use of aspirin; Z79.899 Other long term (current) drug therapy; Z88.1 Allergy status to other antibiotic agents; Z88.2 Allergy status to sulfonamides
CPT/HCPCS: 36415; 74177; 74183; 80053; 80076; 82150; 82962; 83690; 85025; 96361; 96374; 96375; 96376; A9270-GY; A9579; G0378; J1815-GY; J1885; J2405; J2765; J7030; J7050; Q9963; Q9967

== ENCOUNTER 2018-12-04 09:50 | Inpatient (IN) | payer MEDICAID ==
[2018-12-04] MEDS ORDERED: Sodium Chloride 0.9% 1,000 ML IV ONE ×2 (10:18→11:44)
[2018-12-04] MEDS ORDERED: Sodium Chloride 0.9% 10 ML Syringe FLUSH PRN (10:18)
[2018-12-04 10:31] LABS: O2 DELIVERY DEVICE ROOM AIR
--- NOTE | 2018-12-04 10:33 | EDM.PDOC ---
ED HPI GENERAL MEDICAL PROBLEM - General Chief Complaint: General Stated Complaint: High Blood Sugar Time Seen by Provider: 12/04/18 10:10 Source of Information: Reports: Patient History Limitations: Reports: No Limitations - History of Present Illness INITIAL COMMENTS - FREE TEXT/NARRATIVE: 58 YO WM presents to ER complaining of elevated blood sugar this am. Pt reports he woke around 6:30am and checked his blood sugar which read 178. Pt ate breakfast (banana, yogurt) and rechecked his blood sugar around 9:30am which read 400. Pt reports he take Lantus 15 units in am and takes Novolin 7 units after each meal. Pt reports compliance with his medications and is unsure of his last HgbA1C measurement. Pt alert and oriented x 4 and denies any discomfort or distress. Pt denies nausea/vomiting, fever/chills or any recent illnesses. Pt denies polydipsia, polyphagia or urinary frequency or urgency. Onset: Today Location: Reports: Generalized Improves with: Reports: None Worsens with: Reports: None Associated Symptoms: Reports: No Other Symptoms - Related Data Allergies Allergy/AdvReac Type Severity Reaction Status Date / Time vancomycin Allergy Intermediate Rash Verified 07/10/18 12:18 Sulfa (Sulfonamide Allergy Shortness Verified 07/10/18 12:18 Antibiotics) of Breath Home Meds: Home Meds Aspirin [Ecotrin] 325 mg PO DAILY 02/27/17 [History] Calcium Carbonate/Vitamin D3 [Calcium 600 + Vit D 400 Softgl] 1 tab PO BIDMEALS 02/27/17 [History] Omeprazole 20 mg PO ACBREAKFAST 02/27/17 [History] Polyethylene Glycol 3350 [MiraLAX] 17 gm PO DAILY PRN 02/27/17 [History] Liraglutide [Victoza] 1.8 mg SUBCUT DAILY 03/14/17 [History] metFORMIN [Glucophage] 1,000 mg PO BIDMEALS 03/14/17 [History] Insulin Glarg,Human.Rec.Analog [LantUS Solostar] 15 units SQ DAILY 09/10/17 [ History] Insulin Aspart [NovoLOG] 7 unit SQ TIDMEALS 01/22/18 [History] Multivitamin with Minerals [Multivitamins with Minerals] 1 each PO DAILY [History] Acetaminophen [Tylenol] 650 mg PO Q6H PRN tablet 03/04/18 [Rx] Escitalopram [Lexapro] 20 mg PO DAILY tablet 09/05/18 [Rx] Past Medical History HEENT History: Reports: Impaired Vision Cardiovascular History: Reports: High Cholesterol, Hypertension Respiratory History: Reports: None Gastrointestinal History: Reports: GERD Genitourinary History: Reports: Chronic Renal Insuffiency Musculoskeletal History: Reports: Amputation Other Musculoskeletal History: 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 Neurological History: Reports: Neuropathy, Diabetic Psychiatric History: Reports: Anxiety, Depression, Panic Attack Endocrine/Metabolic History: Reports: Diabetes, Type II, IDDM, Obesity/BMI 30+ Hematologic History: Reports: None Immunologic History: Reports: None Oncologic (Cancer) History: Reports: None Dermatologic History: Reports: Cellulitis - Infectious Disease History Infectious Disease History: Reports: MRSA - Past Surgical History HEENT Surgical History: Reports: None Cardiovascular Surgical History: Reports: None Respiratory Surgical History: Reports: None GI Surgical History: Reports: Appendectomy, Cholecystectomy, Colonoscopy Male Surgical History: Reports: None Endocrine Surgical History: Reports: None Neurological Surgical History: Reports: None Musculoskeletal Surgical History: Reports: Amputation, Arthroscopic Knee Dermatological Surgical History: Reports: None Social & Family History - Family History Family Medical History: Noncontributory HEENT: Reports: None Cardiac: Reports: None Respiratory: Reports: None GI: Reports: None : Reports: None OBGYN: Reports: None Musculoskeletal: Reports: None Neurological: Reports: None Psychiatric: Reports: None Endocrine/Metabolic: Reports: Diabetes, type II Hematologic: Reports: None Immunologic: Reports: None Dermatologic: Reports: None Oncologic: Reports: Prostate - Caffeine Use Caffeine Use: Reports: Soda ED ROS GENERAL - Review of Systems Review Of Systems: See Below Constitutional: Reports: No Symptoms HEENT: Reports: No Symptoms Respiratory: Reports: No Symptoms Cardiovascular: Reports: No Symptoms Endocrine: Reports: No Symptoms GI/Abdominal: Reports: No Symptoms : Reports: No Symptoms Musculoskeletal: Reports: No Symptoms Skin: Reports: No Symptoms Neurological: Reports: No Symptoms Psychiatric: Reports: No Symptoms Hematologic/Lymphatic: Reports: No Symptoms Immunologic: Reports: No Symptoms ED EXAM, GENERAL - Physical Exam Exam: See Below Exam Limited By: No Limitations General Appearance: Alert, WD/WN, No Apparent Distress Nose: Normal Inspection, Normal Mucosa, No Blood Throat/Mouth: Normal Inspection, Normal Lips, Normal Teeth, Normal Gums, Normal Oropharynx, Normal Voice, No Airway Compromise Head: Atraumatic, Normocephalic Neck: Normal Inspection, Supple, Non-Tender, Full Range of Motion Respiratory/Chest: No Respiratory Distress, Lungs Clear, Normal Breath Sounds, No Accessory Muscle Use, Chest Non-Tender Cardiovascular: Normal Peripheral Pulses, Regular Rate, Rhythm, No Edema, No Gallop, No JVD, No Murmur, No Rub GI/Abdominal: Normal Bowel Sounds, Soft, Non-Tender, No Organomegaly, No Distention, No Abnormal Bruit, No Mass Back Exam: Normal Inspection, Full Range of Motion, NT Extremities: Normal Inspection, Normal Range of Motion, Non-Tender, Normal Capillary Refill, No Pedal Edema Neurological: Alert, Oriented, CN II-XII Intact, Normal Cognition, Normal Gait, Normal Reflexes, No Motor/Sensory Deficits Psychiatric: Normal Affect, Normal Mood Skin Exam: Warm, Dry, Intact, Normal Color, No Rash Lymphatic: No Adenopathy Course - Orders/Labs/Meds Orders: Active Orders 24 hr Category Date Time Status Accu Check [Blood Glucose Check, Bedside] [] ONETIME Care 12/04/18 11:21 Ordered Peripheral IV Care [RC] . DIRECTED Care 12/04/18 10:18 Active UA W/MICROSCOPIC [URIN] Stat Lab 12/04/18 10:18 Ordered Sodium Chloride 0.9% @ 999 MLS/HR (1000ml) Med 12/04/18 11:44 Ordered Sodium Chloride 0.9% [Normal Saline] 1,000 ml IV .BOLUS Sodium Chloride 0.9% [Saline Flush] Med 12/04/18 10:18 Active 10 ml FLUSH Q8HR PRN Peripheral IV Insertion Adult [OM.PC] Routine Oth 12/04/18 10:18 Ordered Medication Orders Sodium Chloride (Normal Saline) 1,000 mls @ 999 mls/hr IV .BOLUS ONE Stop: 12/04/18 12:44 Sodium Chloride (Saline Flush) 10 ml FLUSH Q8HR PRN PRN Reason: keep vein open Labs: Laboratory Tests 12/04/18 12/04/18 12/04/18 Range/Units 10:30 10:30 10:30 WBC 12.48 H (5.00-10.00) 10^3/uL RBC 4.23 L (4.50-6.00) 10^6/uL Hgb 13.6 D (13.0-17.0) g/dL Hct 38.6 L (40.0-52.0) % MCV 91.3 (82.0-92.0) fL MCH 32.2 H (27.0-31.0) pg MCHC 35.2 (32.0-36.0) g/dL RDW 11.8 (11.5-14.5) % Plt Count 352 (150-400) 10^3/uL MPV 10.7 H (7.4-10.4) fL Immature Gran % (Auto) 0.2 (0.0-5.0) % Neut % (Auto) 84.4 H (50.0-70.0) % Lymph % (Auto) 10.1 L (20.0-40.0) % [place] % (Auto) 4.6 (2.0-8.0) % Eos % (Auto) 0.5 L (1.0-3.0) % Baso % (Auto) 0.2 (0.0-1.0) % Immature Gran # (Auto) 0.03 (0.00-0.50) 10^3/uL Neut # (Auto) 10.53 H (2.50-7.00) 10^3/uL Lymph # (Auto) 1.26 (1.00-4.00) 10^3/uL [place] # (Auto) 0.58 (0.10-0.80) 10^3/uL Eos # (Auto) 0.06 L (0.10-0.30) 10^3/uL Baso # (Auto) 0.02 (0.00-0.10) 10^3/uL VBG pH 7.32 (7.31-7.41) VBG pCO2 42 (41-51) mmHG VBG pO2 33 mmHG VBG HCO3 22 L (23-28) mmol/L VBG Total CO2 23 mmol/L VBG O2 Saturation 59 % VBG Base Excess -4 L ((-2)-3) mmol/L O2 Delivery Device Room air Sodium 135 L (136-145) mmol/L Potassium 3.9 (3.3-5.3) mmol/L Chloride 88 L* D (98-115) mmol/L Carbon Dioxide 22.0 (21.0-32.0) mmol/L Anion Gap 28.9 H (5-15) mmol/L BUN 27 H (6-25) mg/dL Creatinine 1.45 H (0.51-1.17) mg/dL Est Cr Clr Drug Dosing TNP Estimated GFR (MDRD) 50 mL/min Glucose 485 H (75 - 99) mg/dL Calcium 8.9 (8.7-10.3) mg/dL Meds: Medications Generic Name Dose Route Start Last Admin Trade Name Freq PRN Reason Stop Dose Admin Sodium Chloride 1,000 mls @ 999 mls/hr 12/04/18 11:44 Normal Saline IV 12/04/18 12:44 .BOLUS ONE Sodium Chloride 10 ml 12/04/18 10:18 Saline Flush FLUSH Q8HR PRN keep vein open Discontinued Medications Generic Name Dose Route Start Last Admin Trade Name Freq PRN Reason Stop Dose Admin Sodium Chloride 1,000 mls @ 999 mls/hr 12/04/18 10:18 12/04/18 10:30 Normal Saline IV 12/04/18 11:18 999 mls/hr .BOLUS ONE Administration Insulin Human Regular 8 unit 12/04/18 11:44 Novolin R SUBCUT 12/04/18 11:45 ONETIME ONE Protocol Departure - Departure Time of Disposition: 12:12 Disposition: Admitted As Inpatient 66 Condition: Fair Clinical Impression: Hyperosmolality due to uncontrolled type 1 diabetes mellitus Urinary tract infection Qualifiers: Urinary tract infection type: site unspecified Hematuria presence: without hematuria Qualified Code(s): N39.0 - Urinary tract infection, site not specified - Discharge Information Referrals: Mendez Hawley, [employer]NAGER [Primary Care Provider] - Forms: ED Department Discharge - My Orders Last 24 Hours: My Active Orders 12/04/18 10:18 Peripheral IV Care [RC] . DIRECTED UA W/MICROSCOPIC [URIN] Stat Sodium Chloride 0.9% [Saline Flush] 10 ml FLUSH Q8HR PRN Peripheral IV Insertion Adult [OM.PC] Routine 12/04/18 11:21 Accu Check [Blood Glucose Check, Bedside] [RC] ONETIME 12/04/18 11:44 Sodium Chloride 0.9% @ 999 MLS/HR (1000ml) Sodium Chloride 0.9% [Normal Saline] 1,000 ml IV .BOLUS - Assessment/Plan Last 24 Hours: My Active Orders 12/04/18 10:18 Peripheral IV Care [RC] . DIRECTED UA W/MICROSCOPIC [URIN] Stat Sodium Chloride 0.9% [Saline Flush] 10 ml FLUSH Q8HR PRN Peripheral IV Insertion Adult [OM.PC] Routine 12/04/18 11:21 Accu Check [Blood Glucose Check, Bedside] [] ONETIME 12/04/18 11:44 Sodium Chloride 0.9% @ 999 MLS/HR (1000ml) Sodium Chloride 0.9% [Normal Saline] 1,000 ml IV .BOLUS Assessment:: 1. Hyperosmolar hyperglycemia 2. urinary tract infection Plan: 1. admit to medicine- Mendez FRAUSTO 2. rocephin 1g IV QD 3. urine culture 4. accuchecks TID and QHS 5. IVF NS 125cc/hr
[2018-12-04 10:44] LABS: BICARBONATE,VENOUS 22 mmol/L (23-28); O2 SATURATION VENOUS 59 %; PCO2 VENOUS 42 mmHG (41-51); PH,VENOUS 7.32 (7.31-7.41); PO2 VENOUS 33 mmHG
[2018-12-04 10:45] LABS: BASE EXCESS VENOUS -4 mmol/L ((-2)-3)
[2018-12-04 11:01] LABS: ANION GAP 28.9 mmol/L (5-15); SODIUM,NA 135 mmol/L (136-145)
[2018-12-04 11:13] LABS: CHLORIDE,CL 88 mmol/L (98-115)
[2018-12-04] MEDS ORDERED: Insulin Regular, Human 100 Units/ML 10 ML Vial SUBCUT ONE (11:44)
[2018-12-04] MEDS ORDERED: cefTRIAXone 1 GM Vial IVPUSH ONE (12:11)
[2018-12-04] MEDS ORDERED: Ondansetron 4 MG/2 ML SDV IV PRN (15:40)
[2018-12-04] MEDS ORDERED: Polyethylene Glycol 3350 Powder 17 GM Packet PO PRN (15:54)
[2018-12-04 16:20] LABS: HEMOGLOBIN A1C 10.5 % (4.3-5.7)
[2018-12-04] MEDS: Insulin Aspart 100 Units/ML 3 ML Pen SUBCUT SCH ×2 (18:22)
[2018-12-04] MEDS: Acetaminophen 325 MG Tab PO PRN (18:30)
[2018-12-05] MEDS: Omeprazole 20 MG Cap.CR PO SCH (07:50)
[2018-12-05] MEDS: Multivitamins with Minerals/Iron/Folic Acid/Lycopene Tab PO SCH (08:09)
[2018-12-05] MEDS: Aspirin 325 MG Tab.EC PO SCH (08:09)
[2018-12-05] MEDS: Insulin Aspart 100 Units/ML 3 ML Pen SUBCUT SCH ×6 (08:09→18:12)
[2018-12-05] MEDS: Acetaminophen 325 MG Tab PO PRN (08:09)
[2018-12-05] MEDS: Escitalopram 10 MG Tab PO SCH (08:09)
[2018-12-05 08:21] LABS: ANION GAP 18.5 mmol/L (5-15); CHLORIDE,CL 96 mmol/L (98-115); SODIUM,NA 133 mmol/L (136-145)
--- NOTE | 2018-12-05 08:44 | PCM.HP ---
H&P History of Present Illness - General Date of Service: 12/05/18 Admit Problem/Dx: Admission Diagnosis/Problem Admission Diagnosis/Problem Hyperglycemia without ketosis Source of Information: Patient, Old Records, Provider, RN History Limitations: Reports: No Limitations - History of Present Illness Initial Comments - Free Text/Narative: Mr. Huertas is a 58-year-old male was admitted through the ED due to hyperglycemia. Pt reports he woke around 6:30am on the morning of admission and checked his blood sugar which read 178. Pt ate breakfast (banana, yogurt) and rechecked his blood sugar around 9:30am which read 400 due to having lightheadedness and not feeling overall well. Pt reports he take Lantus 15 units in am and takes Novolin 7 units after each meal. Pt reports compliance with his medications and is under close observation with his sister. His most recent hemoglobin A1c 6.5% however the patient has had multiple admissions due to skin infections of lower extremities and feet. 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 Pt denies polydipsia, polyphagia or urinary frequency or urgency. Toe-[place] Pain Score (Numeric/FACES): 2 - Related Data Allergies/Adverse Reactions: Allergies Allergy/AdvReac Type Severity Reaction Status Date / Time vancomycin Allergy Intermediate Rash Verified 07/10/18 12:18 Sulfa (Sulfonamide Allergy Shortness Verified 07/10/18 12:18 Antibiotics) of Breath Home Medications: Home Meds Aspirin [Ecotrin] 325 mg PO DAILY 02/27/17 [History] Calcium Carbonate/Vitamin D3 [Calcium 600 + Vit D 400 Softgl] 1 tab PO BIDMEALS 02/27/17 [History] Omeprazole 20 mg PO ACBREAKFAST 02/27/17 [History] Polyethylene Glycol 3350 [MiraLAX] 17 gm PO DAILY PRN 02/27/17 [History] Liraglutide [Victoza] 1.8 mg SUBCUT DAILY 03/14/17 [History] metFORMIN [Glucophage] 1,000 mg PO BIDMEALS 03/14/17 [History] Insulin Glarg,Human.Rec.Analog [LantUS Solostar] 15 units SQ DAILY 09/10/17 [ History] Insulin Aspart [NovoLOG] 7 unit SQ TIDMEALS 01/22/18 [History] Multivitamin with Minerals [Multivitamins with Minerals] 1 each PO DAILY [History] Acetaminophen [Tylenol] 650 mg PO Q6H PRN tablet 03/04/18 [Rx] Escitalopram [Lexapro] 20 mg PO DAILY tablet 09/05/18 [Rx] Losartan [Cozaar] 25 mg PO DAILY 12/04/18 [History] Rosuvastatin [Crestor] 5 mg PO DAILY 12/04/18 [History] Past Medical History HEENT History: Reports: Impaired Vision Cardiovascular History: Reports: High Cholesterol, Hypertension Respiratory History: Reports: None Gastrointestinal History: Reports: GERD Genitourinary History: Reports: Chronic Renal Insuffiency Musculoskeletal History: Reports: Amputation Other Musculoskeletal History: 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 Neurological History: Reports: Neuropathy, Diabetic Psychiatric History: Reports: Anxiety, Depression, Panic Attack Endocrine/Metabolic History: Reports: Diabetes, Type II, IDDM, Obesity/BMI 30+ Hematologic History: Reports: None Immunologic History: Reports: None Oncologic (Cancer) History: Reports: None Dermatologic History: Reports: Cellulitis - Infectious Disease History Infectious Disease History: Reports: Chicken Pox, MRSA, Mumps - Past Surgical History HEENT Surgical History: Reports: None Cardiovascular Surgical History: Reports: None Respiratory Surgical History: Reports: None GI Surgical History: Reports: Appendectomy, Cholecystectomy, Colonoscopy Male Surgical History: Reports: None Endocrine Surgical History: Reports: None Neurological Surgical History: Reports: None Musculoskeletal Surgical History: Reports: Amputation, Arthroscopic Knee Dermatological Surgical History: Reports: None Social & Family History - Family History HEENT: Reports: None Cardiac: Reports: None Respiratory: Reports: None GI: Reports: None : Reports: None OBGYN: Reports: None Musculoskeletal: Reports: None Neurological: Reports: None Psychiatric: Reports: None Endocrine/Metabolic: Reports: Diabetes, type II Hematologic: Reports: None Immunologic: Reports: None Dermatologic: Reports: None Oncologic: Reports: Prostate - Tobacco Use Smoking Status *Q: Never Smoker Second Hand Smoke Exposure: No - Caffeine Use Caffeine Use: Reports: Soda - Recreational Drug Use Recreational Drug Use: No H&P Review of Systems - Review of Systems: Review Of Systems: See Below General: Reports: Weakness. Denies: Fever, Chills, Malaise, Night Sweats, Diaphoresis HEENT: Reports: No Symptoms Pulmonary: Reports: No Symptoms Cardiovascular: Reports: No Symptoms Gastrointestinal: Reports: No Symptoms Genitourinary: Reports: Dysuria Musculoskeletal: Reports: No Symptoms Skin: Reports: Wound, Change in Color Psychiatric: Reports: No Symptoms Neurological: Reports: Pre-Existing Deficit Hematologic/Lymphatic: Reports: No Symptoms Immunologic: Reports: No Symptoms Exam - Exam Exam: See Below - Vital Signs Vital Signs: Last Vital Signs Temp 98.7 F 12/05/18 06:52 Pulse 111 H 12/05/18 06:52 Resp 20 12/05/18 06:52 BP 141/79 H 12/05/18 06:52 Pulse Ox 94 L 12/05/18 06:55 Weight: 274 lb 8 oz - Exam Quality Assessment: No: Supplemental Oxygen General: Alert, Oriented, 4 HEENT: Mucosa Moist & [place] Neck: Supple, Trachea Midline, 2 Lungs: Clear to Auscultation, Normal Respiratory Effort Cardiovascular: Regular Rate, Regular Rhythm GI/Abdominal Exam: Normal Bowel Sounds, Soft (Male) Exam: Deferred Rectal (Males) Exam: Deferred Extremities: No Pedal Edema Peripheral Pulses: 2+: Radial (L), Radial (R) Skin: Wound Neurological: Cranial Nerves Intact Neuro Extensive - Mental Status: Alert, Oriented x3, Normal Mood/Affect, Normal Cognition Neuro Extensive - Motor, Sensory, Reflexes: CN II-XII Intact, Normal Gait, Normal Reflexes Psychiatric: Alert, Normal Affect, Normal Mood - Patient Data Lab Results Last 24 hrs: Laboratory Results - last 24 hr 12/04/18 12/04/18 12/04/18 Range/Units 10:30 10:30 10:30 WBC 12.48 H (5.00-10.00) 10^3/uL RBC 4.23 L (4.50-6.00) 10^6/uL Hgb 13.6 D (13.0-17.0) g/dL Hct 38.6 L (40.0-52.0) % MCV 91.3 (82.0-92.0) fL MCH 32.2 H (27.0-31.0) pg MCHC 35.2 (32.0-36.0) g/dL RDW 11.8 (11.5-14.5) % Plt Count 352 (150-400) 10^3/uL MPV 10.7 H (7.4-10.4) fL Immature Gran % (Auto) 0.2 (0.0-5.0) % Neut % (Auto) 84.4 H (50.0-70.0) % Lymph % (Auto) 10.1 L (20.0-40.0) % [place] % (Auto) 4.6 (2.0-8.0) % Eos % (Auto) 0.5 L (1.0-3.0) % Baso % (Auto) 0.2 (0.0-1.0) % Immature Gran # (Auto) 0.03 (0.00-0.50) 10^3/uL Neut # (Auto) 10.53 H (2.50-7.00) 10^3/uL Lymph # (Auto) 1.26 (1.00-4.00) 10^3/uL [place] # (Auto) 0.58 (0.10-0.80) 10^3/uL Eos # (Auto) 0.06 L (0.10-0.30) 10^3/uL Baso # (Auto) 0.02 (0.00-0.10) 10^3/uL VBG pH 7.32 (7.31-7.41) VBG pCO2 42 (41-51) mmHG VBG pO2 33 mmHG VBG HCO3 22 L (23-28) mmol/L VBG Total CO2 23 mmol/L VBG O2 Saturation 59 % VBG Base Excess -4 L ((-2)-3) mmol/L O2 Delivery Device Room air Sodium 135 L (136-145) mmol/L Potassium 3.9 (3.3-5.3) mmol/L Chloride 88 L* D (98-115) mmol/L Carbon Dioxide 22.0 (21.0-32.0) mmol/L Anion Gap 28.9 H (5-15) mmol/L BUN 27 H (6-25) mg/dL Creatinine 1.45 H (0.51-1.17) mg/dL Est Cr Clr Drug Dosing TNP Estimated GFR (MDRD) 50 mL/min Glucose 485 H (75 - 99) mg/dL POC Glucose (74-106) mg/dl Hemoglobin A1c (4.3-5.7) % Calcium 8.9 (8.7-10.3) mg/dL C-Reactive Protein (0.0-0.9) mg/dL Specimen Type Urine Color (YELLOW) Urine Appearance (CLEAR) Urine pH (5.0-9.0) Ur Specific [place] (1.005-1.030) Urine Protein (NEGATIVE) mg/dL Urine Glucose (UA) (NEGATIVE) mg/dL Urine Ketones (NEGATIVE) mg/dL Urine Occult Blood (NEGATIVE) Urine Nitrite (NEGATIVE) Urine Bilirubin (NEGATIVE) Urine Urobilinogen (0.2-1.0) E.U./dL Ur Leukocyte Esterase (NEGATIVE) Urine RBC (0-5) /HPF Urine WBC (0-5) /HPF Ur Epithelial Cells /LPF Urine Bacteria (NONE TO FEW) /HPF Granular Casts (NEGATIVE) /LPF Urine Mucus (NEGATIVE) /LPF 12/04/18 12/04/18 12/04/18 Range/Units 11:20 11:23 11:35 WBC (5.00-10.00) 10^3/uL RBC (4.50-6.00) 10^6/uL Hgb (13.0-17.0) g/dL Hct (40.0-52.0) % MCV (82.0-92.0) fL MCH (27.0-31.0) pg MCHC (32.0-36.0) g/dL RDW (11.5-14.5) % Plt Count (150-400) 10^3/uL MPV (7.4-10.4) fL Immature Gran % (Auto) (0.0-5.0) % Neut % (Auto) (50.0-70.0) % Lymph % (Auto) (20.0-40.0) % [place] % (Auto) (2.0-8.0) % Eos % (Auto) (1.0-3.0) % Baso % (Auto) (0.0-1.0) % Immature Gran # (Auto) (0.00-0.50) 10^3/uL Neut # (Auto) (2.50-7.00) 10^3/uL Lymph # (Auto) (1.00-4.00) 10^3/uL [place] # (Auto) (0.10-0.80) 10^3/uL Eos # (Auto) (0.10-0.30) 10^3/uL Baso # (Auto) (0.00-0.10) 10^3/uL VBG pH (7.31-7.41) VBG pCO2 (41-51) mmHG VBG pO2 mmHG VBG HCO3 (23-28) mmol/L VBG Total CO2 mmol/L VBG O2 Saturation % VBG Base Excess ((-2)-3) mmol/L O2 Delivery Device Sodium (136-145) mmol/L Potassium (3.3-5.3) mmol/L Chloride (98-115) mmol/L Carbon Dioxide (21.0-32.0) mmol/L Anion Gap (5-15) mmol/L BUN (6-25) mg/dL Creatinine (0.51-1.17) mg/dL Est Cr Clr Drug Dosing Estimated GFR (MDRD) mL/min Glucose (75 - 99) mg/dL POC Glucose 446 H (74-106) mg/dl Hemoglobin A1c 10.5 H (4.3-5.7) % Calcium (8.7-10.3) mg/dL C-Reactive Protein (0.0-0.9) mg/dL Specimen Type Urinvoid Urine Color Yellow (YELLOW) Urine Appearance Slightly cloudy H (CLEAR) Urine pH 5.0 (5.0-9.0) Ur Specific [place] 1.010 (1.005-1.030) Urine Protein Negative (NEGATIVE) mg/dL Urine Glucose (UA) 500 H (NEGATIVE) mg/dL Urine Ketones Trace H (NEGATIVE) mg/dL Urine Occult Blood Negative (NEGATIVE) Urine Nitrite Negative (NEGATIVE) Urine Bilirubin Negative (NEGATIVE) Urine Urobilinogen 0.2 (0.2-1.0) E.U./dL Ur Leukocyte Esterase Negative (NEGATIVE) Urine RBC 0-5 (0-5) /HPF Urine WBC 30-40 H (0-5) /HPF Ur Epithelial Cells Moderate H /LPF Urine Bacteria Few (NONE TO FEW) /HPF Granular Casts Few H (NEGATIVE) /LPF Urine Mucus Few H (NEGATIVE) /LPF 02/12/04/18 12/04/18 Range/Units 13:08 16:10 17:37 WBC (5.00-10.00) 10^3/uL RBC (4.50-6.00) 10^6/uL Hgb (13.0-17.0) g/dL Hct (40.0-52.0) % MCV (82.0-92.0) fL MCH (27.0-31.0) pg MCHC (32.0-36.0) g/dL RDW (11.5-14.5) % Plt Count (150-400) 10^3/uL MPV (7.4-10.4) fL Immature Gran % (Auto) (0.0-5.0) % Neut % (Auto) (50.0-70.0) % Lymph % (Auto) (20.0-40.0) % [place] % (Auto) (2.0-8.0) % Eos % (Auto) (1.0-3.0) % Baso % (Auto) (0.0-1.0) % Immature Gran # (Auto) (0.00-0.50) 10^3/uL Neut # (Auto) (2.50-7.00) 10^3/uL Lymph # (Auto) (1.00-4.00) 10^3/uL [place] # (Auto) (0.10-0.80) 10^3/uL Eos # (Auto) (0.10-0.30) 10^3/uL Baso # (Auto) (0.00-0.10) 10^3/uL VBG pH (7.31-7.41) VBG pCO2 (41-51) mmHG VBG pO2 mmHG VBG HCO3 (23-28) mmol/L VBG Total CO2 mmol/L VBG O2 Saturation % VBG Base Excess ((-2)-3) mmol/L O2 Delivery Device Sodium (136-145) mmol/L Potassium (3.3-5.3) mmol/L Chloride (98-115) mmol/L Carbon Dioxide (21.0-32.0) mmol/L Anion Gap (5-15) mmol/L BUN (6-25) mg/dL Creatinine (0.51-1.17) mg/dL Est Cr Clr Drug Dosing Estimated GFR (MDRD) mL/min Glucose (75 - 99) mg/dL POC Glucose 393 H 320 H 341 H (74-106) mg/dl Hemoglobin A1c (4.3-5.7) % Calcium (8.7-10.3) mg/dL C-Reactive Protein (0.0-0.9) mg/dL Specimen Type Urine Color (YELLOW) Urine Appearance (CLEAR) Urine pH (5.0-9.0) Ur Specific [place] (1.005-1.030) Urine Protein (NEGATIVE) mg/dL Urine Glucose (UA) (NEGATIVE) mg/dL Urine Ketones (NEGATIVE) mg/dL Urine Occult Blood (NEGATIVE) Urine Nitrite (NEGATIVE) Urine Bilirubin (NEGATIVE) Urine Urobilinogen (0.2-1.0) E.U./dL Ur Leukocyte Esterase (NEGATIVE) Urine RBC (0-5) /HPF Urine WBC (0-5) /HPF Ur Epithelial Cells /LPF Urine Bacteria (NONE TO FEW) /HPF Granular Casts (NEGATIVE) /LPF Urine Mucus (NEGATIVE) /LPF 12/05/18 12/05/18 12/05/18 Range/Units 03:57 07:54 07:55 WBC 10.38 H (5.00-10.00) 10^3/uL RBC 4.27 L (4.50-6.00) 10^6/uL Hgb 13.6 (13.0-17.0) g/dL Hct 39.2 L (40.0-52.0) % MCV 91.8 (82.0-92.0) fL MCH 31.9 H (27.0-31.0) pg MCHC 34.7 (32.0-36.0) g/dL RDW 12.2 (11.5-14.5) % Plt Count 323 (150-400) 10^3/uL MPV 10.4 (7.4-10.4) fL Immature Gran % (Auto) 0.3 (0.0-5.0) % Neut % (Auto) 85.0 H (50.0-70.0) % Lymph % (Auto) 8.1 L (20.0-40.0) % [place] % (Auto) 5.8 (2.0-8.0) % Eos % (Auto) 0.6 L (1.0-3.0) % Baso % (Auto) 0.2 (0.0-1.0) % Immature Gran # (Auto) 0.03 (0.00-0.50) 10^3/uL Neut # (Auto) 8.83 H (2.50-7.00) 10^3/uL Lymph # (Auto) 0.84 L (1.00-4.00) 10^3/uL [place] # (Auto) 0.60 (0.10-0.80) 10^3/uL Eos # (Auto) 0.06 L (0.10-0.30) 10^3/uL Baso # (Auto) 0.02 (0.00-0.10) 10^3/uL VBG pH (7.31-7.41) VBG pCO2 (41-51) mmHG VBG pO2 mmHG VBG HCO3 (23-28) mmol/L VBG Total CO2 mmol/L VBG O2 Saturation % VBG Base Excess ((-2)-3) mmol/L O2 Delivery Device Sodium (136-145) mmol/L Potassium (3.3-5.3) mmol/L Chloride (98-115) mmol/L Carbon Dioxide (21.0-32.0) mmol/L Anion Gap (5-15) mmol/L BUN (6-25) mg/dL Creatinine (0.51-1.17) mg/dL Est Cr Clr Drug Dosing Estimated GFR (MDRD) mL/min Glucose (75 - 99) mg/dL POC Glucose 333 H 347 H (74-106) mg/dl Hemoglobin A1c (4.3-5.7) % Calcium (8.7-10.3) mg/dL C-Reactive Protein (0.0-0.9) mg/dL Specimen Type Urine Color (YELLOW) Urine Appearance (CLEAR) Urine pH (5.0-9.0) Ur Specific [place] (1.005-1.030) Urine Protein (NEGATIVE) mg/dL Urine Glucose (UA) (NEGATIVE) mg/dL Urine Ketones (NEGATIVE) mg/dL Urine Occult Blood (NEGATIVE) Urine Nitrite (NEGATIVE) Urine Bilirubin (NEGATIVE) Urine Urobilinogen (0.2-1.0) E.U./dL Ur Leukocyte Esterase (NEGATIVE) Urine RBC (0-5) /HPF Urine WBC (0-5) /HPF Ur Epithelial Cells /LPF Urine Bacteria (NONE TO FEW) /HPF Granular Casts (NEGATIVE) /LPF Urine Mucus (NEGATIVE) /LPF 12/05/18 Range/Units 07:55 WBC (5.00-10.00) 10^3/uL RBC (4.50-6.00) 10^6/uL Hgb (13.0-17.0) g/dL Hct (40.0-52.0) % MCV (82.0-92.0) fL MCH (27.0-31.0) pg MCHC (32.0-36.0) g/dL RDW (11.5-14.5) % Plt Count (150-400) 10^3/uL MPV (7.4-10.4) fL Immature Gran % (Auto) (0.0-5.0) % Neut % (Auto) (50.0-70.0) % Lymph % (Auto) (20.0-40.0) % [place] % (Auto) (2.0-8.0) % Eos % (Auto) (1.0-3.0) % Baso % (Auto) (0.0-1.0) % Immature Gran # (Auto) (0.00-0.50) 10^3/uL Neut # (Auto) (2.50-7.00) 10^3/uL Lymph # (Auto) (1.00-4.00) 10^3/uL [place] # (Auto) (0.10-0.80) 10^3/uL Eos # (Auto) (0.10-0.30) 10^3/uL Baso # (Auto) (0.00-0.10) 10^3/uL VBG pH (7.31-7.41) VBG pCO2 (41-51) mmHG VBG pO2 mmHG VBG HCO3 (23-28) mmol/L VBG Total CO2 mmol/L VBG O2 Saturation % VBG Base Excess ((-2)-3) mmol/L O2 Delivery Device Sodium 133 L (136-145) mmol/L Potassium 4.4 (3.3-5.3) mmol/L Chloride 96 L (98-115) mmol/L Carbon Dioxide 22.9 (21.0-32.0) mmol/L Anion Gap 18.5 H (5-15) mmol/L BUN 17 (6-25) mg/dL Creatinine 0.90 (0.51-1.17) mg/dL Est Cr Clr Drug Dosing 101.11 Estimated GFR (MDRD) > 60 mL/min Glucose 327 H (75 - 99) mg/dL POC Glucose (74-106) mg/dl Hemoglobin A1c (4.3-5.7) % Calcium 8.6 L (8.7-10.3) mg/dL C-Reactive Protein 4.3 H (0.0-0.9) mg/dL Specimen Type Urine Color (YELLOW) Urine Appearance (CLEAR) Urine pH (5.0-9.0) Ur Specific [place] (1.005-1.030) Urine Protein (NEGATIVE) mg/dL Urine Glucose (UA) (NEGATIVE) mg/dL Urine Ketones (NEGATIVE) mg/dL Urine Occult Blood (NEGATIVE) Urine Nitrite (NEGATIVE) Urine Bilirubin (NEGATIVE) Urine Urobilinogen (0.2-1.0) E.U./dL Ur Leukocyte Esterase (NEGATIVE) Urine RBC (0-5) /HPF Urine WBC (0-5) /HPF Ur Epithelial Cells /LPF Urine Bacteria (NONE TO FEW) /HPF Granular Casts (NEGATIVE) /LPF Urine Mucus (NEGATIVE) /LPF Result Diagrams: 12/05/18 07:55 12/05/18 07:55 Problem List Initiated/Reviewed/Updated: Yes Orders Last 24hrs: Active Orders 24 hr Category Date Time Status Patient Status [ADT] Routine ADT 12/04/18 15:40 Ordered Blood Glucose Check, Bedside [RC] 0730,1130,1730 Care 12/04/18 15:40 Active Height and Weight [RC] .PRN Care 12/04/18 15:40 Active Intake and Output [RC] 0600,1400,2200 Care 12/04/18 15:42 Active May Shower [RC] ASDIRECTED Care 12/04/18 15:40 Active Oxygen Therapy [RC] PRN Care 12/04/18 15:40 Active Up ad Brenna [RC] ASDIRECTED Care 12/04/18 15:40 Active Up to Chair [RC] ASDIRECTED Care 12/04/18 15:40 Active VTE/DVT Education [RC] PER UNIT ROUTINE Care 12/04/18 15:40 Active Vital Signs [RC] 0300,0700,1100,1500,1900,2300 Care 12/04/18 15:40 Active Citizen Of [place] Diabetic [employer] Diet [DIET] Diet 12/04/18 Dinner Active CULTURE URINE [RM] Stat Lab 12/04/18 12:11 Ordered MISCELLANEOUS CULT [MREF] Routine Lab 12/04/18 13:40 Received Acetaminophen [Tylenol] Med 12/04/18 15:54 Active 650 mg PO Q6H PRN Aspirin [Ecotrin] Med 12/05/18 09:00 Active 325 mg PO DAILY Escitalopram [Lexapro] Med 12/05/18 09:00 Active 20 mg PO DAILY FA/Lycopene/Lut/MV,Ca,Iron,Min [Centrum] Med 12/05/18 09:00 Active 1 tab PO DAILY Insulin Aspart [NovoLOG] Med 12/04/18 18:00 Active 7 unit SUBCUT TIDMEALS Insulin Aspart [NovoLOG] Med 12/04/18 18:00 Active See Protocol SUBCUT TIDMEALS Insulin Detemir [Levemir] Med 12/05/18 09:00 Ordered 18 unit SUBCUT DAILY Liraglutide [Victoza] Med 12/05/18 09:00 Active 1.8 mg SUBCUT DAILY Omeprazole Med 12/05/18 07:30 Active 20 mg PO ACBREAKFAST Ondansetron [Zofran] Med 12/04/18 15:40 Active 4 mg IV Q4H PRN Polyethylene Glycol 3350 [MiraLAX] Med 12/04/18 15:54 Active 17 gm PO DAILY PRN Sodium Chloride 0.9% [Saline Flush] Med 12/04/18 15:40 Active 10 ml FLUSH Q8HR PRN Saline Lock Insert [OM.PC] Routine Oth 12/04/18 15:40 Ordered Resuscitation Status Routine Resus Stat 12/04/18 15:40 Ordered Medication Orders Acetaminophen (Tylenol) 650 mg PO Q6H PRN PRN Reason: Pain Last Admin: 12/05/18 08:09 Dose: 650 mg Admin: 12/04/18 18:30 Dose: 650 mg Aspirin (Ecotrin) 325 mg PO DAILY [facility] Last Admin: 12/05/18 08:09 Dose: 325 mg Escitalopram Oxalate (Lexapro) 20 mg PO DAILY [facility] Last Admin: 12/05/18 08:09 Dose: 20 mg Insulin Aspart (Novolog) 0 unit SUBCUT TIDMEALS [facility]; Protocol Last Admin: 12/05/18 08:10 Dose: 4 unit Admin: 12/04/18 18:22 Dose: 4 unit Insulin Aspart (Novolog) 7 unit SUBCUT TIDMEALS [facility] Last Admin: 12/05/18 08:09 Dose: 7 unit Admin: 12/04/18 18:22 Dose: 7 unit Insulin Detemir (Levemir) 18 unit SUBCUT DAILY [facility] Liraglutide (Victoza) 1.8 mg SUBCUT DAILY [facility] Multivitamins/Minerals (Centrum) 1 tab PO DAILY [facility] Last Admin: 12/05/18 08:09 Dose: 1 tab Omeprazole (Omeprazole) 20 mg PO ACBREAKFAST [facility] Last Admin: 12/05/18 07:50 Dose: 20 mg Ondansetron HCl (Zofran) 4 mg IV Q4H PRN PRN Reason: Nausea/Vomiting Last Admin: 12/05/18 06:28 Dose: 4 mg Polyethylene Glycol (Miralax) 17 gm PO DAILY PRN PRN Reason: Constipation Sodium Chloride (Saline Flush) 10 ml FLUSH Q8HR PRN PRN Reason: keep vein open Assessment/Plan Comment:: History of present illness Mr. Huertas is a 58-year-old male was admitted through the ED due to hyperglycemia. Pt reports he woke around 6:30am on the morning of admission and checked his blood sugar which read 178. Pt ate breakfast (banana, yogurt) and rechecked his blood sugar around 9:30am which read 400 due to having lightheadedness and not feeling overall well. Pt reports he take Lantus 15 units in am and takes Novolin 7 units after each meal. Pt reports compliance with his medications and is under close observation with his sister. His most recent hemoglobin A1c 6.5% however the patient has had multiple admissions due to skin infections of lower extremities and feet. 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 Pt denies polydipsia, polyphagia or urinary frequency or urgency. ED course Rocephin 1 g evening ED, suspected UTI White count 12.48 Blood gas nonconcerning Upon admission and full examination patient was discovered to have infected appearing swollen edematous painful right great toe. Patient states he develop an ulceration a few days ago upon purchasing new shoes. Primary diagnosis T2 DM with hyperglycemia nonketotic, Diabetic foot ulceration, right great toe, Plan today --MRI right foot today, --wound culture, --hold metformin, --hydrate after MRI, --Daptomycin 500 mg IV every 24 hours, --Zosyn 3.75 mg IV every 8 infusion for 4 hours, --daily Betadine dressing changes --blood cultures 2 prior to antibiotics, --Offloading as much as possible. Keep elevated. --Correct hyperglycemia with increase in long-acting, add corrective insulin to prandial coverage. Increase prandial coverage. --ESR, CRP. 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
[2018-12-05] MEDS: Liraglutide (rDNA Origin) 0.6 MG/0.1 ML 3 ML Pen SUBCUT SCH (08:55)
[2018-12-05] MEDS: Insulin Detemir 100 Units/ML 3 ML Pen SUBCUT SCH (08:55)
[2018-12-05] MEDS ORDERED: Insulin Detemir 100 Units/ML 3 ML Pen SUBCUT SCH (09:00)
[2018-12-05] MEDS ORDERED: Insulin Aspart 100 Units/ML 3 ML Pen SUBCUT ONE (11:44)
[2018-12-05] MEDS ORDERED: Sodium Chloride 0.9% 250 ML IV SCH (12:00)
[2018-12-05] MEDS ORDERED: Sodium Chloride 0.9% 500 ML IV SCH (12:00)
[2018-12-05] MEDS ORDERED: DAPTOmycin 500 MG in Sodium Chloride 0.9% 50 ML IV SCH (12:00)
[2018-12-05] MEDS ORDERED: Piperacillin/Tazobactam/Dext 50 ML IV SCH (12:30)
[2018-12-05] MEDS ORDERED: LORazepam 2 MG/ML SDV IVPUSH ONE (13:10)
--- NOTE | 2018-12-05 14:57 | MR ---
[id number] MR/MRI Foot Right WWO IV Exam: MRI Foot Right WWO IV Indication:RULE OUT OSTEOMYELITIS. Comparison: No prior imaging for comparison. Discussion: In the first metatarsal head, there is a cystic lesion with a sclerotic border and surrounding marrow edema. Similar findings are seen in the second metatarsal head. Findings are most consistent with subchondral geode formation in the setting of osteoarthritis. However, extensive patient motion artifact markedly limits evaluation. Within this limitation, there is no obvious evidence of acute osteomyelitis. However, if there is continued suspicion for osteoarthritis, examination should be repeated. There is soft tissue edema throughout the foot, most prominent in the first and second digits. In the clinical setting of infection, findings are consistent with cellulitis. Impression: No definitive evidence of acute osteomyelitis on this limited examination, described above. Possible changes of cellulitis are seen. Justin Horvath MD 12/05/18 [id number] Thank you for allowing us to participate in the care of your patient.
[2018-12-05] MEDS ORDERED: GADOPENTETATE DIMEGLUMINE IV ONE (15:07)
[2018-12-05] MEDS: DAPTOmycin 500 MG in Sodium Chloride 0.9% 50 ML IV SCH (15:40)
[2018-12-05] MEDS: Piperacillin/Tazobactam/Dext 50 ML IV SCH ×2 (16:27→23:53)
[2018-12-06] MEDS ORDERED: Sodium Chloride 0.9% 500 ML ONE (05:45)
[2018-12-06] MEDS: Sodium Chloride 0.9% 500 ML IV SCH ×2 (05:47→14:45)
[2018-12-06] MEDS: Omeprazole 20 MG Cap.CR PO SCH (07:40)
[2018-12-06] MEDS: Piperacillin/Tazobactam/Dext 50 ML IV SCH ×3 (08:04→23:04)
[2018-12-06] MEDS: Aspirin 325 MG Tab.EC PO SCH (08:05)
[2018-12-06] MEDS: Escitalopram 10 MG Tab PO SCH (08:05)
[2018-12-06] MEDS: Multivitamins with Minerals/Iron/Folic Acid/Lycopene Tab PO SCH (08:05)
[2018-12-06] MEDS: Insulin Aspart 100 Units/ML 3 ML Pen SUBCUT SCH ×6 (08:06→17:49)
[2018-12-06] MEDS: Insulin Detemir 100 Units/ML 3 ML Pen SUBCUT SCH ×2 (08:55→20:54)
[2018-12-06] MEDS: Liraglutide (rDNA Origin) 0.6 MG/0.1 ML 3 ML Pen SUBCUT SCH (08:56)
--- NOTE | 2018-12-06 10:08 | PCM.PN ---
- General Info Date of Service: 12/06/18 Functional Status: Reports: Pain Controlled, Tolerating Diet, Urinating. Denies : Ambulating (Nonweightbearing for now), New Symptoms - Review of Systems General: Denies: Fever HEENT: Reports: No Symptoms Pulmonary: Reports: No Symptoms Cardiovascular: Reports: No Symptoms Gastrointestinal: Reports: No Symptoms Genitourinary: Reports: No Symptoms Musculoskeletal: Reports: Joint Swelling (Right great toe) Skin: Reports: Bruising Neurological: Reports: Difficulty Walking Psychiatric: Reports: Mood Lability - Patient Data Vitals - Most Recent: Last Vital Signs Temp 99.0 F 12/06/18 06:59 Pulse 99 12/06/18 06:59 Resp 20 12/06/18 06:59 BP 148/79 H 12/06/18 06:59 Pulse Ox 96 12/06/18 06:59 Weight - Most Recent: 274 lb 8 oz I&O - Last 24 Hours: Intake & Output 12/05/18 12/06/18 12/06/18 22:59 06:59 14:59 Intake Total 1232 581 Output Total 375 600 Balance 857 -19 Lab Results Last 24 Hours: Laboratory Results - last 24 hr 12/05/18 12/05/18 12/05/18 Range/Units 07:55 11:39 14:10 ESR 71 H (0-15) mm/hr POC Glucose 470 H 349 H (74-106) mg/dl 12/05/18 12/06/18 Range/Units 17:44 07:39 ESR (0-15) mm/hr POC Glucose 258 H 320 H (74-106) mg/dl Farzad Results Last 24 Hours: Microbiology 12/04/18 13:40 Gram Stain - Final Wound - Right Big Med Orders - Current: Current Medications Acetaminophen (Tylenol) 650 mg PO Q6H PRN PRN Reason: Pain Last Admin: 12/05/18 08:09 Dose: 650 mg Aspirin (Ecotrin) 325 mg PO DAILY [facility] Last Admin: 12/06/18 08:05 Dose: 325 mg Escitalopram Oxalate (Lexapro) 20 mg PO DAILY [facility] Last Admin: 12/06/18 08:05 Dose: 20 mg Daptomycin 500 mg/ Sodium (Chloride) 60 mls @ 120 mls/hr IV Q24H [facility] Last Admin: 12/05/18 15:40 Dose: 120 mls/hr Piperacillin/Tazobactam/Dextrose (Zosyn In Dextrose Iso-Osmotic 3.375 Gm) 50 mls @ 12.5 mls/hr IV Q8H [facility] Last Admin: 12/06/18 08:04 Dose: 12.5 mls/hr Sodium Chloride (Normal Saline) 500 mls @ 30 mls/hr IV DAILY@1500 [facility] Last Admin: 12/06/18 05:47 Dose: 30 mls/hr Insulin Aspart (Novolog) 0 unit SUBCUT TIDMEALS [facility]; Protocol Last Admin: 12/06/18 08:06 Dose: 8 unit Insulin Aspart (Novolog) 8 unit SUBCUT TIDMEALS [facility] Last Admin: 12/06/18 08:07 Dose: 8 unit Insulin Detemir (Levemir) 18 unit SUBCUT DAILY [facility] Last Admin: 12/06/18 08:55 Dose: 18 unit Liraglutide (Victoza) 1.8 mg SUBCUT DAILY [facility] Last Admin: 12/06/18 08:56 Dose: 1.8 mg Multivitamins/Minerals (Centrum) 1 tab PO DAILY [facility] Last Admin: 12/06/18 08:05 Dose: 1 tab Omeprazole (Omeprazole) 20 mg PO ACBREAKFAST [facility] Last Admin: 12/06/18 07:40 Dose: 20 mg Ondansetron HCl (Zofran) 4 mg IV Q4H PRN PRN Reason: Nausea/Vomiting Last Admin: 12/05/18 06:28 Dose: 4 mg Polyethylene Glycol (Miralax) 17 gm PO DAILY PRN PRN Reason: Constipation Sodium Chloride (Saline Flush) 10 ml FLUSH Q8HR PRN PRN Reason: keep vein open Discontinued Medications Ceftriaxone Sodium (Rocephin) 1 gm IVPUSH ONETIME ONE Stop: 12/04/18 12:12 Last Admin: 12/04/18 12:20 Dose: 1 gm Gadopentetate Dimeglumine (Magnevist) 20 ml IV ONETIME ONE Stop: 12/05/18 15:08 Last Admin: 12/05/18 15:55 Dose: 20 ml Sodium Chloride (Normal Saline) 1,000 mls @ 999 mls/hr IV .BOLUS ONE Stop: 12/04/18 11:18 Last Admin: 12/04/18 10:30 Dose: 999 mls/hr Sodium Chloride (Normal Saline) 1,000 mls @ 999 mls/hr IV .BOLUS ONE Stop: 12/04/18 12:44 Last Admin: 12/04/18 11:52 Dose: 999 mls/hr Piperacillin/Tazobactam/Dextrose (Zosyn In Dextrose Iso-Osmotic 3.375 Gm) 50 mls @ 12.5 mls/hr IV Q8H [facility] Last Admin: 12/05/18 14:26 Dose: Not Given Daptomycin 500 mg/ Sodium (Chloride) 50 mls @ 100 mls/hr IV Q24H [facility] Last Admin: 12/05/18 14:26 Dose: Not Given Sodium Chloride (Normal Saline) 250 mls @ 30 mls/hr IV DAILY@1200 RUSLAN Sodium Chloride (Normal Saline) 500 mls @ 30 mls/hr IV DAILY@1200 RUSLAN Last Admin: 12/05/18 14:26 Dose: Not Given Sodium Chloride (Normal Saline) 600 mls @ 999 mls/hr IV .BOLUS ONE Stop: 12/05/18 13:36 Last Admin: 12/05/18 14:20 Dose: 999 mls/hr Sodium Chloride (Normal Saline) Confirm Administered Dose 500 mls @ as directed .ROUTE .STK-MED ONE Stop: 12/06/18 05:46 Last Admin: 12/06/18 06:26 Dose: Not Given Insulin Aspart (Novolog) 7 unit SUBCUT TIDMEALS [facility] Last Admin: 12/05/18 08:09 Dose: 7 unit Insulin Aspart (Novolog) 10 unit SUBCUT ONETIME ONE Stop: 12/05/18 11:45 Last Admin: 12/05/18 11:48 Dose: 10 unit Insulin Detemir (Levemir) 15 unit SUBCUT DAILY [facility] Insulin Human Regular (Novolin R) 8 unit SUBCUT ONETIME ONE; Protocol Stop: 12/04/18 11:45 Last Admin: 12/04/18 12:01 Dose: 8 unit Lorazepam (Ativan) 0.5 mg IVPUSH ONETIME ONE Stop: 12/05/18 13:11 Last Admin: 12/05/18 13:25 Dose: 0.5 mg Sodium Chloride (Saline Flush) 10 ml FLUSH Q8HR PRN PRN Reason: keep vein open Last Admin: 12/04/18 21:56 Dose: 10 ml - Exam Quality Assessment: No: Supplemental Oxygen General: Alert, Oriented Neck: Supple Lungs: Clear to Auscultation, Normal Respiratory Effort Cardiovascular: Regular Rate, Regular Rhythm GI/Abdominal Exam: Normal Bowel Sounds, Soft Extremities: No Pedal Edema Skin: Other (Right great toe yesterday, erythremia, edematous purulent drainage) Wound/Incisions: Dressing Dry and Intact Neurological: No New Focal Deficit Psy/Mental Status: Alert, Normal Affect, Normal Mood - Problem List Review Problem List Initiated/Reviewed/Updated: Yes - My Orders Last 24 Hours: My Active Orders 12/05/18 09:00 Aspirin [Ecotrin] 325 mg PO DAILY Escitalopram [Lexapro] 20 mg PO DAILY FA/Lycopene/Lut/MV,Ca,Iron,Min [Centrum] 1 tab PO DAILY Insulin Detemir [Levemir] 18 unit SUBCUT DAILY Liraglutide [Victoza] 1.8 mg SUBCUT DAILY 12/05/18 12:00 Insulin Aspart [NovoLOG] 8 unit SUBCUT TIDMEALS 12/05/18 12:34 Dressing Change [Wound Care] [RC] DAILY 12/05/18 15:00 DAPTOmycin [Cubicin] 500 mg Sodium Chloride 0.9% [Normal Saline] 50 ml IV Q24H 12/05/18 15:10 CULTURE BLOOD [BC] Routine 12/05/18 15:33 CULTURE BLOOD [BC] Routine 12/05/18 16:00 Piperacillin/Tazobactam/Dext [Zosyn in Dextrose Iso-Osmotic 3.375 GM] 50 ml IV Q8H 12/06/18 15:00 Sodium Chloride 0.9% [Normal Saline] 500 ml IV DAILY@1500 12/07/18 05:11 CBC WITH AUTO DIFF [HEME] AM - Plan Plan:: History of present illness Mr. Huertas is a 58-year-old male was admitted through the ED due to hyperglycemia. Pt reports he woke around 6:30am on the morning of admission and checked his blood sugar which read 178. Pt ate breakfast (banana, yogurt) and rechecked his blood sugar around 9:30am which read 400 due to having lightheadedness and not feeling overall well. Pt reports he take Lantus 15 units in am and takes Novolin 7 units after each meal. Pt reports compliance with his medications and is under close observation with his sister. His most recent hemoglobin A1c 6.5% however the patient has had multiple admissions due to skin infections of lower extremities and feet. 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 Pt denies polydipsia, polyphagia or urinary frequency or urgency. Manager Of Recruiting Dr Chowdhury was consulted and also examining visited patient. Recommended daptomycin. ED course Rocephin 1 g evening ED, suspected UTI White count 12.48 Blood gas non-concerning Upon admission and full examination patient was discovered to have infected appearing swollen edematous painful right great toe. Patient states he develop an ulceration a few days ago upon purchasing new shoes. MRI right foot, no definitive evidence of acute osteomyelitis however possible cellulitis, right great metatarsal head cystic lesion consistent with subchondral geode formation in the setting of OA. Patient had slight panic attack while in MRI however improved with lorazepam. Primary diagnosis subchondral geode right great toe with ulceration T2DM with hyperglycemia nonketotic, GLP-1, metformin, Urinary tract infection, Secondary problems HLD, ASCVD risk < 5%, moderate dose statin therapy. HTN, ARB, stable, potassium normal, creatinine 0.9, GFR greater 60 Plan --Continue antibiotics --wound culture and blood cultures pending --hold metformin until Sunday (received contrast 12/05) hydrated after MRI --increase prandial coverage from 8 to 9 units, increase corrective SS to high- dose, 10 units NovoLog now, add HS long-acting to 8 units. --Daptomycin 500 mg IV every 24 hours, --Zosyn 3.75 mg IV every 8 infusion over 4 hours, --daily Betadine dressing changes --Offloading as much as possible. Keep elevated. --Correct hyperglycemia with increased in long-acting, add corrective insulin to prandial coverage. Increase prandial coverage. --ESR, CRP. --Send MRI results to switchboard operator Dr Chowdhury --Re-educated patient on CHO counting--seems quite knowledgeable --Reinforced the need for podiatry fitted shoes, patient not to purchase own shoes in future
[2018-12-06] MEDS: DAPTOmycin 500 MG in Sodium Chloride 0.9% 50 ML IV SCH (14:45)
[2018-12-07] MEDS: Omeprazole 20 MG Cap.CR PO SCH (07:13)
[2018-12-07] MEDS: Piperacillin/Tazobactam/Dext 50 ML IV SCH ×2 (07:58→15:56)
[2018-12-07] MEDS: Insulin Aspart 100 Units/ML 3 ML Pen SUBCUT SCH ×6 (07:59→18:01)
[2018-12-07] MEDS: Multivitamins with Minerals/Iron/Folic Acid/Lycopene Tab PO SCH (08:00)
[2018-12-07] MEDS: Escitalopram 10 MG Tab PO SCH (08:01)
[2018-12-07] MEDS: Aspirin 325 MG Tab.EC PO SCH (08:01)
[2018-12-07 08:15] LABS: ANION GAP 14.2 mmol/L (5-15); CHLORIDE,CL 100 mmol/L (98-115); SODIUM,NA 137 mmol/L (136-145)
[2018-12-07] MEDS: Insulin Detemir 100 Units/ML 3 ML Pen SUBCUT SCH ×2 (08:42→20:25)
[2018-12-07] MEDS: Liraglutide (rDNA Origin) 0.6 MG/0.1 ML 3 ML Pen SUBCUT SCH (08:42)
--- NOTE | 2018-12-07 10:22 | PN ---
12/07/2018 PATIENT NAME: GARETT LEE SUBJECTIVE: This is a 58-year-old gentleman who works at a local [employer] who has a history of diabetes. He does have a history of having toes on his left foot amputated due to his diabetes. He states he was at work and felt a little sweaty. He just did not feel right, so he checked his blood sugar, it was elevated at over 400. He then went to the emergency room for further evaluation and treatment. At that time, he was found to have an infected right great toe. He states that he just recently bought a new pair shoes and he cannot really feel his feet, it must have been rubbing on his foot and caused a big blister and sore area. The patient did have an MRI of this toe. It shows no osteomyelitis, but does show a cellulitis. Today, the patient denies any pain to the toe. He states that he is feeling okay. He denies any fever. His toe is still red with a large pustule on it that is not draining. OBJECTIVE: VITAL SIGNS: Today the patient's weight is 274 pounds. Temperature is 99.1, pulse is 83, blood pressure is 129/73, respiratory rate is 18, oxygen saturation on room air is 95%. GENERAL: This is a white male, in no acute distress. CARDIAC: Heart tones are regular rate and rhythm. No murmurs identified. LUNGS: Lung sounds are clear throughout lung guerrero. ABDOMEN: Large, soft, nontender, nondistended. Bowel sounds present x4. EXTREMITIES: Right great toe has a pustule on it approximately 3.5 cm in length. There is surrounding erythema. Mild warmth to touch. No drainage noted. Dressing has been applied over the top of this, so protected. The patient states the toe does not hurt at all, although he has peripheral neuropathy and cannot really feel it. LABORATORY DATA: The patient's lab work today CBC showed a white count within normal range at 6.8, hemoglobin 12.8, platelet count 288. The patient's chemistry panel is unremarkable except for the glucose elevated at 266. Calcium is slightly low at 8.5, and his C-reactive protein is elevated at 5.0. IMPRESSION AND PLAN: 1. Right great toe cellulitis. Plan, we will continue with IV antibiotic therapy of Zosyn IV every 8 hours. We will also continue with daptomycin 500 mg IV every 24 hours. The patient blood cultures came back with no growth at this point. We will continue with dressing over the patient's greater toe to protect the large pustule on his toe. The patient's white count was within normal range today at 6.82. We will continue treatment. 2. History of depression. Plan, continue with Lexapro 20 mg daily. 3. History of diabetes mellitus type 2. Plan, we will continue with sliding scale insulin high dose for high blood sugars. The patient's blood sugars have been a little on the high side since admission. We will continue with 8 units of NovoLog 3 times a day with meals. I am going to increase the patient's Levemir slightly. He was receiving 18 units in the morning and 8 at bedtime. I am going to increase his daily dose to 22 units in the morning. Also continue with Victoza 1.8 mg subcutaneously daily. We will continue to monitor blood sugars closely. The patient does have Accu-Cheks ordered t.i.d. before meals. 4. History of gastroesophageal reflux disease. Plan, continue with omeprazole 20 mg daily. OVERALL PLAN: Patient seems to be improving. 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 Continue with IV antibiotic therapy as ordered. /[id number]/MODL MTDD
[2018-12-07] MEDS: DAPTOmycin 500 MG in Sodium Chloride 0.9% 50 ML IV SCH (14:52)
[2018-12-07] MEDS: Sodium Chloride 0.9% 500 ML IV SCH (14:53)
[2018-12-08] MEDS: Piperacillin/Tazobactam/Dext 50 ML IV SCH ×3 (00:23→16:24)
[2018-12-08] MEDS: Omeprazole 20 MG Cap.CR PO SCH (06:41)
[2018-12-08] MEDS: Aspirin 325 MG Tab.EC PO SCH (08:00)
[2018-12-08] MEDS: Multivitamins with Minerals/Iron/Folic Acid/Lycopene Tab PO SCH (08:00)
[2018-12-08] MEDS: Insulin Aspart 100 Units/ML 3 ML Pen SUBCUT SCH ×6 (08:00→18:03)
[2018-12-08] MEDS: Escitalopram 10 MG Tab PO SCH (08:00)
[2018-12-08] MEDS: Insulin Detemir 100 Units/ML 3 ML Pen SUBCUT SCH ×2 (08:39→21:29)
[2018-12-08] MEDS: Liraglutide (rDNA Origin) 0.6 MG/0.1 ML 3 ML Pen SUBCUT SCH (08:40)
--- NOTE | 2018-12-08 11:16 | PN ---
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 He has a long history of diabetes. He actually has a history of having his toes and part of his foot amputated on the left foot due to his diabetes. The patient had been at work and he felt a little sweaty and dizzy. He just did not feel right, so he checked his blood sugar, it was greater than 400. Usually, he is pretty well controlled. At that time, he presented to the emergency room for further evaluation and treatment. He was found to have a red and inflamed right great toe. The patient had just bought some new shoes that were rubbing on his foot, which most likely a sore and caused an infection. The patient had an MRI of the right toe, it showed no osteomyelitis, but he did show cellulitis. Today, the patient denies any pain to his foot, although he does not feel much to his feet because of the peripheral neuropathy he suffers from. The patient denies any fever or chills. He states that his appetite is good. OBJECTIVE: VITAL SIGNS: Today, temperature is 97.9, pulse 85, blood pressure 141/86, respiratory rate 20, and oxygen saturation on room air is 98%. GENERAL: This is a white gentleman, in no acute distress. CARDIAC: Heart tones are regular rate and rhythm. PULMONARY: Lung sounds are clear throughout lung guerrero. ABDOMEN: Soft, nontender, nondistended. Bowel sounds present x4. EXTREMITIES: The patient's right great toe has area of erythema. It is slightly warm to the touch. He does have a vague large pustule approximately 3.5 cm in length and it did break open, it is draining some purulent drainage. LABORATORY DATA: The patient's lab work that he had today was just a blood sugar this morning that was elevated at 299. The patient's CBC that he had yesterday showed a white count within normal range at 6.82. IMPRESSION AND PLAN: 1. Cellulitis of right great toe. Plan: We will continue with antibiotic therapy of Zosyn IV every 8 hours along with daptomycin 500 mg IV daily. Blood cultures did come back with no growth at this time. I am going to culture the drainage coming from the large pustule on his toe today. After the culture is obtained, we will start Bactroban ointment to the toe with dressing changes twice a day. MRI did show no osteomyelitis, but did show cellulitis. 2. History of depression. Plan: Continue with Lexapro 20 mg daily. 3. History of diabetes mellitus type 2. Plan: The patient's blood sugars continue to be elevated. I am going to increase the patient's Levemir. He is currently going to be taking 22 units Levemir in the morning and receiving 12 units at bedtime. We will continue with NovoLog. I also did increase that. He will get 10 units of NovoLog 3 times a day with meals. We will continue to keep a close eye on his blood sugars. We will check it 4 times a day. He is also on high dose sliding scale insulin to cover high blood sugars. We will also continue with Victoza 1.8 mg subcutaneously daily. 4. History of gastroesophageal reflux disease. Plan: Continue with omeprazole 20 mg daily. OVERALL PLAN: The patient seems to be improving. The patient's pustule did break open. We will culture the drainage, wait for culture report, start applying some Bactroban to the wound, and we will continue with current antibiotics as prescribed at this time. /[id number]/MODL MTDD
[2018-12-08] MEDS ORDERED: Mupirocin Oint 22 GM Tube TOP SCH (14:00)
[2018-12-08] MEDS: DAPTOmycin 500 MG in Sodium Chloride 0.9% 50 ML IV SCH (14:44)
[2018-12-08] MEDS: Sodium Chloride 0.9% 500 ML IV SCH (14:44)
[2018-12-08] MEDS: Mupirocin Oint 22 GM Tube TOP SCH (21:21)
[2018-12-09] MEDS: Piperacillin/Tazobactam/Dext 50 ML IV SCH ×2 (01:02→08:13)
[2018-12-09] MEDS: Omeprazole 20 MG Cap.CR PO SCH (07:04)
[2018-12-09] MEDS: Insulin Aspart 100 Units/ML 3 ML Pen SUBCUT SCH ×6 (08:13→17:40)
[2018-12-09] MEDS: Liraglutide (rDNA Origin) 0.6 MG/0.1 ML 3 ML Pen SUBCUT SCH (09:55)
[2018-12-09] MEDS: Multivitamins with Minerals/Iron/Folic Acid/Lycopene Tab PO SCH (09:56)
[2018-12-09] MEDS: Escitalopram 10 MG Tab PO SCH (09:56)
[2018-12-09] MEDS: Aspirin 325 MG Tab.EC PO SCH (09:57)
[2018-12-09] MEDS: Insulin Detemir 100 Units/ML 3 ML Pen SUBCUT SCH ×2 (09:58→21:44)
--- NOTE | 2018-12-09 10:50 | PN ---
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 He does have a long history of diabetes. He actually has history of having an amputation of his toes along with part of his foot on his left foot due to his diabetes. The patient had been at work and noticed that he felt a little sweaty and a little dizzy, just was not feeling right. He checked his blood sugar and his blood sugar at that time was greater than 400, so he presented to the emergency room here in [facility]. He was found to have inflamed and red right great toe. The patient recently had bought some new shoes and apparently was rubbing on his foot causing a sore which must have gotten infected. The patient had a MRI of his right toe, which showed no osteomyelitis but it did show cellulitis. The patient was started on IV antibiotic therapy. Now today, the patient states that he has no pain to his foot or his toes. He says he can feel when I touch it, but he does not have very good feeling to his feet due to his peripheral neuropathy. The patient denies any fever or chills. He states his appetite is good. OBJECTIVE: VITAL SIGNS: Today, temperature is 97.7, pulse is 71, blood pressure 149/82, respiratory rate is 20, oxygen saturation on room air is 95%. GENERAL: This is a white gentleman in no acute distress. CARDIAC: Heart tones are regular rate and rhythm. No murmurs identified. ABDOMEN: Large, obese, soft, nontender, nondistended. Bowel sounds present x4. LUNGS: Sounds are clear throughout all lung guerrero. EXTREMITIES: The patient's right toe is still erythematous. The pustule has been draining. LABORATORY DATA: The patient did not have any lab work today. He does have blood sugars yesterday afternoon. His blood sugar was 150, now this morning, it is 234. The patient's blood cultures were negative. No growth after 3 days. The patient does have a preliminary report on his culture from his drainage from the right great toe, comes back as Staph aureus. IMPRESSION AND PLAN: 1. Cellulitis of right great toe in diabetic patient. Plan: We will continue with daptomycin 500 mg IV daily. I am going to stop patient's Zosyn at this time. Actually, the patient is allergic to vancomycin, so I am going to stop the Zosyn and start doxycycline 100 mg twice daily orally. I am concerned that it might be MRSA. I do not have the sensitivities back from the lab yet. Blood cultures did come back, no growth after 3 days. It is draining a moderate amount from the pustule on his toe. We will continue with Bactroban ointment with dressing changes. I am also going to have nursing staff do soaks with Betadine and warm water twice daily. MRI that was obtained did show no osteomyelitis but did show the cellulitis. 2. History of depression. Plan: Continue with Lexapro 20 mg daily. 3. History of diabetes mellitus type 2. Plan: The patient's blood sugars continue to be elevated. I did increase the patient's Levemir to 22 units in the morning and 12 units at bedtime. We will continue with NovoLog at 10 units three times a day with meals. We will to continue watch blood sugars closely. We will check him 4 times a day. The patient is on high dose sliding scale insulin to cover high blood sugars. Also continue with Victoza 1.8 mg subcutaneously daily. Blood sugars seem to be slightly improved but still elevated at times. We will continue with an ADA diet. 4. History of gastroesophageal reflux disease. Plan: Continue with omeprazole 20 mg daily. OVERALL PLAN: The patient seems to be improving. Culture of the pustule did come back, preliminary, as Staph aureus. I did stop the Zosyn. We will start doxycycline orally 100 mg twice daily due to patient having a vancomycin allergy. We will await for the sensitivity report to come back. We are going to soak the patient's right foot in warm water with Betadine twice a day with dressing changes. We will also continue with the Bactroban ointment twice a day with dressing changes to the pustule/wound. We will continue with the daptomycin 500 mg IV daily. We will continue to monitor the patient's blood sugars closely. Due to the patient's diabetes and history of amputations, we are going to continue the patient with inpatient therapy at this time. /[id number]/MODL MTDD
[2018-12-09] MEDS: Mupirocin Oint 22 GM Tube TOP SCH ×2 (13:17→21:44)
[2018-12-09] MEDS: Sodium Chloride 0.9% 500 ML IV SCH (15:15)
[2018-12-09] MEDS: DAPTOmycin 500 MG in Sodium Chloride 0.9% 50 ML IV SCH (15:24)
[2018-12-10] MEDS: Acetaminophen 325 MG Tab PO PRN (05:15)
[2018-12-10] MEDS: Omeprazole 20 MG Cap.CR PO SCH (07:38)
[2018-12-10] MEDS: Insulin Aspart 100 Units/ML 3 ML Pen SUBCUT SCH ×6 (08:10→17:54)
[2018-12-10] MEDS: Sodium Chloride 0.9% 10 ML Syringe FLUSH PRN ×2 (08:12→15:08)
[2018-12-10] MEDS: Aspirin 325 MG Tab.EC PO SCH (08:19)
[2018-12-10] MEDS: Multivitamins with Minerals/Iron/Folic Acid/Lycopene Tab PO SCH (08:19)
[2018-12-10] MEDS: Escitalopram 10 MG Tab PO SCH (08:19)
[2018-12-10] MEDS: Liraglutide (rDNA Origin) 0.6 MG/0.1 ML 3 ML Pen SUBCUT SCH (08:20)
[2018-12-10] MEDS: Insulin Detemir 100 Units/ML 3 ML Pen SUBCUT SCH ×2 (08:20→21:26)
--- NOTE | 2018-12-10 10:02 | PCM.PN ---
- General Info Date of Service: 12/10/18 Functional Status: Reports: Pain Controlled, Tolerating Diet. Denies: Ambulating, New Symptoms, Incentive Spirometry - Review of Systems General: Denies: Fever HEENT: Reports: No Symptoms Pulmonary: Reports: No Symptoms Cardiovascular: Reports: No Symptoms Gastrointestinal: Reports: No Symptoms Genitourinary: Reports: No Symptoms Musculoskeletal: Reports: Joint Pain (Right great toe) Neurological: Reports: Difficulty Walking Psychiatric: Reports: No Symptoms - Patient Data Vitals - Most Recent: Last Vital Signs Temp 97.7 F 12/10/18 06:52 Pulse 81 12/10/18 06:52 Resp 18 12/10/18 06:52 BP 140/93 H 12/10/18 06:52 Pulse Ox 95 12/10/18 06:52 Weight - Most Recent: 274 lb 8 oz I&O - Last 24 Hours: Intake & Output 12/09/18 12/10/18 12/10/18 22:59 06:59 14:59 Intake Total 700 300 Output Total 500 1100 Balance 200 -800 Lab Results Last 24 Hours: Laboratory Results - last 24 hr 12/09/18 12/09/18 12/10/18 Range/Units 11:42 17:33 07:36 POC Glucose 379 H 226 H 241 H (74-106) mg/dl [facility] Results Last 24 Hours: Microbiology 12/05/18 15:33 Aerobic Blood Culture - Preliminary Blood NO GROWTH AFTER 4 DAYS Anaerobic Blood Culture - Preliminary NO GROWTH AFTER 4 DAYS 12/05/18 15:10 Aerobic Blood Culture - Preliminary Blood NO GROWTH AFTER 4 DAYS Anaerobic Blood Culture - Preliminary NO GROWTH AFTER 4 DAYS Med Orders - Current: Current Medications Acetaminophen (Tylenol) 650 mg PO Q6H PRN PRN Reason: Pain Last Admin: 12/10/18 05:15 Dose: 650 mg Aspirin (Ecotrin) 325 mg PO DAILY [facility] Last Admin: 12/10/18 08:19 Dose: 325 mg Doxycycline Hyclate (Vibramycin) 100 mg PO BID [facility] Last Admin: 12/10/18 08:19 Dose: 100 mg Escitalopram Oxalate (Lexapro) 20 mg PO DAILY [facility] Last Admin: 12/10/18 08:19 Dose: 20 mg Daptomycin 500 mg/ Sodium (Chloride) 60 mls @ 120 mls/hr IV Q24H [facility] Last Admin: 12/09/18 15:24 Dose: 120 mls/hr Sodium Chloride (Normal Saline) 500 mls @ 30 mls/hr IV DAILY@1500 [facility] Last Admin: 12/09/18 15:15 Dose: 30 mls/hr Insulin Aspart (Novolog) 0 unit SUBCUT TIDMEALS [facility]; Protocol Last Admin: 12/10/18 08:10 Dose: 6 unit Insulin Aspart (Novolog) 10 unit SUBCUT TIDMEALS [facility] Last Admin: 12/10/18 08:10 Dose: 10 units Insulin Detemir (Levemir) 22 unit SUBCUT DAILY [facility] Last Admin: 12/10/18 08:20 Dose: 22 units Insulin Detemir (Levemir) 12 unit SUBCUT BEDTIME [facility] Last Admin: 12/09/18 21:44 Dose: 12 units Liraglutide (Victoza) 1.8 mg SUBCUT DAILY [facility] Last Admin: 12/10/18 08:20 Dose: 1.8 mg Multivitamins/Minerals (Centrum) 1 tab PO DAILY [facility] Last Admin: 12/10/18 08:19 Dose: 1 tab Mupirocin (Bactroban Oint) 0 gm TOP BID [facility] Last Admin: 12/09/18 21:44 Dose: 1 applic Omeprazole (Omeprazole) 20 mg PO ACBREAKFAST [facility] Last Admin: 12/10/18 07:38 Dose: 20 mg Ondansetron HCl (Zofran) 4 mg IV Q4H PRN PRN Reason: Nausea/Vomiting Last Admin: 12/05/18 06:28 Dose: 4 mg Polyethylene Glycol (Miralax) 17 gm PO DAILY PRN PRN Reason: Constipation Sodium Chloride (Saline Flush) 10 ml FLUSH Q8HR PRN PRN Reason: keep vein open Last Admin: 12/10/18 08:12 Dose: 10 ml Discontinued Medications Ceftriaxone Sodium (Rocephin) 1 gm IVPUSH ONETIME ONE Stop: 12/04/18 12:12 Last Admin: 12/04/18 12:20 Dose: 1 gm Gadopentetate Dimeglumine (Magnevist) 20 ml IV ONETIME ONE Stop: 12/05/18 15:08 Last Admin: 12/05/18 15:55 Dose: 20 ml Sodium Chloride (Normal Saline) 1,000 mls @ 999 mls/hr IV .BOLUS ONE Stop: 12/04/18 11:18 Last Admin: 12/04/18 10:30 Dose: 999 mls/hr Sodium Chloride (Normal Saline) 1,000 mls @ 999 mls/hr IV .BOLUS ONE Stop: 12/04/18 12:44 Last Admin: 12/04/18 11:52 Dose: 999 mls/hr Piperacillin/Tazobactam/Dextrose (Zosyn In Dextrose Iso-Osmotic 3.375 Gm) 50 mls @ 12.5 mls/hr IV Q8H [facility] Last Admin: 12/05/18 14:26 Dose: Not Given Daptomycin 500 mg/ Sodium (Chloride) 50 mls @ 100 mls/hr IV Q24H [facility] Last Admin: 12/05/18 14:26 Dose: Not Given Sodium Chloride (Normal Saline) 250 mls @ 30 mls/hr IV DAILY@1200 [facility] Sodium Chloride (Normal Saline) 500 mls @ 30 mls/hr IV DAILY@1200 [facility] Last Admin: 12/05/18 14:26 Dose: Not Given Sodium Chloride (Normal Saline) 600 mls @ 999 mls/hr IV .BOLUS ONE Stop: 12/05/18 13:36 Last Admin: 12/05/18 14:20 Dose: 999 mls/hr Piperacillin/Tazobactam/Dextrose (Zosyn In Dextrose Iso-Osmotic 3.375 Gm) 50 mls @ 12.5 mls/hr IV Q8H [facility] Last Admin: 12/09/18 08:13 Dose: 12.5 mls/hr Sodium Chloride (Normal Saline) Confirm Administered Dose 500 mls @ as directed .ROUTE .STK-MED ONE Stop: 12/06/18 05:46 Last Admin: 12/06/18 06:26 Dose: Not Given Insulin Aspart (Novolog) 7 unit SUBCUT TIDMEALS [facility] Last Admin: 12/05/18 08:09 Dose: 7 unit Insulin Aspart (Novolog) 8 unit SUBCUT TIDMEALS [facility] Last Admin: 12/08/18 08:01 Dose: 8 unit Insulin Aspart (Novolog) 10 unit SUBCUT ONETIME ONE Stop: 12/05/18 11:45 Last Admin: 12/05/18 11:48 Dose: 10 unit Insulin Detemir (Levemir) 15 unit SUBCUT DAILY [facility] Insulin Detemir (Levemir) 18 unit SUBCUT DAILY [facility] Last Admin: 12/07/18 08:42 Dose: 18 unit Insulin Detemir (Levemir) 8 unit SUBCUT BEDTIME [facility] Last Admin: 12/07/18 20:25 Dose: 8 units Insulin Human Regular (Novolin R) 8 unit SUBCUT ONETIME ONE; Protocol Stop: 12/04/18 11:45 Last Admin: 12/04/18 12:01 Dose: 8 unit Lorazepam (Ativan) 0.5 mg IVPUSH ONETIME ONE Stop: 12/05/18 13:11 Last Admin: 12/05/18 13:25 Dose: 0.5 mg Mupirocin (Bactroban Oint) 0 gm TOP TID [facility] Sodium Chloride (Saline Flush) 10 ml FLUSH Q8HR PRN PRN Reason: keep vein open Last Admin: 12/04/18 21:56 Dose: 10 ml - Exam Quality Assessment: No: Supplemental Oxygen General: Alert, Oriented Lungs: Clear to Auscultation, Normal Respiratory Effort Cardiovascular: Regular Rate, Regular Rhythm Skin: Other (Right great toe slightly erythematous superficial serous drainage noted) Neurological: Normal Speech, Normal Tone - Problem List Review Problem List Initiated/Reviewed/Updated: Yes - Plan Plan:: History of present illness Mr. Huertas is a 58-year-old male was admitted through the ED due to hyperglycemia. Pt reports he woke around 6:30am on the morning of admission and checked his blood sugar which read 178. Pt ate breakfast (banana, yogurt) and rechecked his blood sugar around 9:30am which read 400 due to having lightheadedness and not feeling overall well. Pt reports he take Lantus 15 units in am and takes Novolin 7 units after each meal. Pt reports compliance with his medications and is under close observation with his sister. His most recent hemoglobin A1c 6.5% however the patient has had multiple admissions due to skin infections of lower extremities and feet. 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 Pt denies polydipsia, polyphagia or urinary frequency or urgency. Senior Net Web Developer Dr Chowdhury was consulted and also examining visited patient. Recommended daptomycin. ED course Rocephin 1 g evening ED, suspected UTI White count 12.48 Blood gas non-concerning Diagnostics: MRI right foot, no definitive evidence of acute osteomyelitis however possible cellulitis, right great metatarsal head cystic lesion consistent with subchondral geode formation in the setting of OA. Patient had slight panic attack while in MRI however improved with lorazepam. Update today. Weekend provider discontinued Zosyn and added doxycycline 100 mg by mouth twice a day Primary diagnosis subchondral geode right great toe with ulceration T2DM with hyperglycemia nonketotic, GLP-1, metformin, improving Urinary tract infection, resolved Secondary problems HLD, ASCVD risk < 5%, moderate dose statin therapy. HTN, ARB, stable, potassium normal, creatinine 0.9, GFR greater 60 Plan Likely could be discharged soon consult with podiatry regarding outpatient services --Continue doxycycline. Along with daptomycin. --daily Betadine dressing changes --Offloading as much as possible. Keep elevated. --Reinforced the need for podiatry fitted shoes, patient not to purchase own shoes in future
[2018-12-10] MEDS: Mupirocin Oint 22 GM Tube TOP SCH ×2 (10:17→21:26)
[2018-12-10] MEDS ORDERED: Sodium Chloride 0.9% 50 ML IV SCH (15:00)
[2018-12-10] MEDS: DAPTOmycin 500 MG in Sodium Chloride 0.9% 50 ML IV SCH (15:06)
[2018-12-11 06:44] VITALS: BP 151/90
[2018-12-11] MEDS: Omeprazole 20 MG Cap.CR PO SCH (07:44)
[2018-12-11] MEDS: Insulin Aspart 100 Units/ML 3 ML Pen SUBCUT SCH ×2 (08:19→08:20)
[2018-12-11] MEDS: Aspirin 325 MG Tab.EC PO SCH (08:32)
[2018-12-11] MEDS: Liraglutide (rDNA Origin) 0.6 MG/0.1 ML 3 ML Pen SUBCUT SCH (08:32)
[2018-12-11] MEDS: Multivitamins with Minerals/Iron/Folic Acid/Lycopene Tab PO SCH (08:32)
[2018-12-11] MEDS: Escitalopram 10 MG Tab PO SCH (08:32)
[2018-12-11] MEDS: Insulin Detemir 100 Units/ML 3 ML Pen SUBCUT SCH (08:33)
[2018-12-11] MEDS: Mupirocin Oint 22 GM Tube TOP SCH (09:53)
--- NOTE | 2018-12-11 10:37 | PCM.DCSUM1 ---
Discharge Summary - Hospital Course Diagnosis: Stroke: No - Discharge Data Discharge Date: 12/11/18 Discharge Disposition: Home, W Home Health Agency 06 Condition: Good - Patient Instructions Diet: Diabetic Diet Activity: As Tolerated, Elevate Extremity, Partial Weight Bearing Driving: Do Not Drive Showering/Bathing: May Shower Wound/Incision Care: Keep Operative Site/Wound Site Clean and Dry, Change Dressing Daily Notify Provider of: Fever, Increased Pain, Nausea and/or Vomiting - Discharge Plan *PRESCRIPTION DRUG MONITORING PROGRAM REVIEWED*: Not Applicable *COPY OF PRESCRIPTION DRUG MONITORING REPORT IN PATIENT SUDARSHAN: Not Applicable Prescriptions/Med Rec: Doxycycline [Vibramycin] 100 mg PO BID #28 cap Home Medications: Home Meds Aspirin [Ecotrin] 325 mg PO DAILY 02/27/17 [History] Calcium Carbonate/Vitamin D3 [Calcium 600 + Vit D 400 Softgl] 1 tab PO BIDMEALS 02/27/17 [History] Omeprazole 20 mg PO ACBREAKFAST 02/27/17 [History] Polyethylene Glycol 3350 [MiraLAX] 17 gm PO DAILY PRN 02/27/17 [History] Liraglutide [Victoza] 1.8 mg SUBCUT DAILY 03/14/17 [History] metFORMIN [Glucophage] 1,000 mg PO BIDMEALS 03/14/17 [History] Insulin Glarg,Human.Rec.Analog [LantUS Solostar] 15 units SQ DAILY 09/10/17 [ History] Multivitamin with Minerals [Multivitamins with Minerals] 1 each PO DAILY [History] Acetaminophen [Tylenol] 650 mg PO Q6H PRN tablet 03/04/18 [Rx] Escitalopram [Lexapro] 20 mg PO DAILY tablet 09/05/18 [Rx] Losartan [Cozaar] 25 mg PO DAILY 12/04/18 [History] Rosuvastatin [Crestor] 5 mg PO DAILY 12/04/18 [History] Doxycycline [Vibramycin] 100 mg PO BID #28 cap 12/11/18 [Rx] Insulin Aspart [NovoLOG] 8 unit SQ TIDMEALS #0 12/11/18 [Rx] Forms: ED Department Discharge Referrals: [facility] [Outside] Mendez Hawley NP [Primary Care Provider] - - Discharge Summary/Plan Comment DC Time >30 min.: Yes Discharge Summary/Plan Comment: Final diagnosis subchondral geode right great toe with ulceration Urinary tract infection, resolved HLD, ASCVD risk < 5%, moderate dose statin therapy. HTN, ARB, stable, History summary Mr. Huertas is a 58-year-old male was admitted through the ED due to hyperglycemia. Pt reports he woke around 6:30am on the morning of admission and checked his blood sugar which read 178. Pt ate breakfast (banana, yogurt) and rechecked his blood sugar around 9:30am which read 400 due to having lightheadedness and not feeling overall well. Pt reports he take Lantus 15 units in am and takes Novolin 7 units after each meal. Pt reports compliance with his medications and is under close observation with his sister. His most recent hemoglobin A1c 6.5% however the patient has had multiple admissions due to skin infections of lower extremities and feet. 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 Pt denies polydipsia, polyphagia or urinary frequency or urgency. Professional Nursing Tutor Dr Chowdhury was consulted and also examining visited patient. Recommended daptomycin. Hospital course Hospital course went well, in the ED he was given 1 g of Rocephin for suspected UTI, his white count was slightly elevated at 12.4 he had a blood gas that was non-concerning. MRI right foot, no definitive evidence of acute osteomyelitis however possible cellulitis, right great metatarsal head cystic lesion consistent with subchondral geode formation in the setting of OA. Patient had slight panic attack while in MRI however improved with lorazepam. I did consult with bridge manager Dr. Chowdhury and he examined the wound prior to the MRI and recommended daptomycin along with broad-spectrum antibiotics. Eventually he was taken off broad-spectrum antibiotics started on axis cycling which she will continue for 2 more weeks post discharge. His wound was cleaned and dressed daily. He did require increasing insulin due to likely infection. He had no complications with treatments other than the MRI. He had daily Betadine dressing changes and his instructions were offloading as much as possible and we kept his foot elevated. His educated regarding proper fitting shoes. Medication changes/adjustments upon discharge Doxycycline 100 mg by mouth twice a day 2 weeks Increased prandial insulin from 7 to 8 units 3 times a day Disposition He will be discharged from [facility] with oral antibiotics for 2 weeks, Betadine dressing changes daily, he will follow-up at [facility] with Dr. Chowdhury Professional Nursing Tutor for wound check. Patient was educated regarding placing Moleskin in shoe to prevent friction. We will receive home health care This is a [id number] encounter for the patient to receive fdc health care for ongoing evaluation of his right great toe wound and daily Betadine dressing changes. Have high risk of rehospitalization due to the need for close monitoring, elevated blood glucose level result from infection, and wounds. Please assess patient for wound care and assessment and daily dressing changes. Patient is homebound due to his unsteady gait since he had surgical operation of contralateral foot and is at high risk of infection due to diabetes mellitus - General Info Functional Status: Reports: Pain Controlled - Review of Systems General: Reports: No Symptoms Pulmonary: Reports: No Symptoms Cardiovascular: Reports: No Symptoms Gastrointestinal: Reports: No Symptoms Skin: Reports: Other (Right great toe wound) - Patient Data Vitals - Most Recent: Last Vital Signs Temp 98.6 F 12/11/18 06:43 Pulse 78 12/11/18 06:43 Resp 18 12/11/18 06:43 BP 151/90 H 12/11/18 06:43 Pulse Ox 96 12/11/18 07:00 Weight - Most Recent: 274 lb 8 oz I&O - Last 24 hours: Intake & Output 12/10/18 12/11/18 12/11/18 22:59 06:59 14:59 Intake Total 765 50 Output Total 600 900 Balance 165 -850 Lab Results - Last 24 hrs: Laboratory Results - last 24 hr 12/10/18 12/10/18 12/11/18 Range/Units 11:45 17:47 07:12 POC Glucose 340 H 211 H 203 H (74-106) mg/dl [facility] Results - Last 24 hrs: Microbiology 12/08/18 21:21 Gram Stain - Final Wound - Foot, Right 12/05/18 15:33 Aerobic Blood Culture - Final Blood NO GROWTH AFTER 5 DAYS Anaerobic Blood Culture - Final NO GROWTH AFTER 5 DAYS 12/05/18 15:10 Aerobic Blood Culture - Final Blood NO GROWTH AFTER 5 DAYS Anaerobic Blood Culture - Final NO GROWTH AFTER 5 DAYS Med Orders - Current: Current Medications Acetaminophen (Tylenol) 650 mg PO Q6H PRN PRN Reason: Pain Last Admin: 12/10/18 05:15 Dose: 650 mg Aspirin (Ecotrin) 325 mg PO DAILY [facility] Last Admin: 12/11/18 08:32 Dose: 325 mg Doxycycline Hyclate (Vibramycin) 100 mg PO BID [facility] Last Admin: 12/11/18 08:32 Dose: 100 mg Escitalopram Oxalate (Lexapro) 20 mg PO DAILY [facility] Last Admin: 12/11/18 08:32 Dose: 20 mg Daptomycin 500 mg/ Sodium (Chloride) 60 mls @ 120 mls/hr IV Q24H [facility] Last Admin: 12/10/18 15:06 Dose: 120 mls/hr Sodium Chloride (Normal Saline) 50 mls @ 3 mls/hr IV DAILY@1500 [facility] Last Admin: 12/10/18 15:06 Dose: 120 mls/hr Insulin Aspart (Novolog) 0 unit SUBCUT TIDMEALS [facility]; Protocol Last Admin: 12/11/18 08:20 Dose: 6 unit Insulin Aspart (Novolog) 10 unit SUBCUT TIDMEALS [facility] Last Admin: 12/11/18 08:19 Dose: 10 units Insulin Detemir (Levemir) 22 unit SUBCUT DAILY [facility] Last Admin: 12/11/18 08:33 Dose: 22 units Insulin Detemir (Levemir) 12 unit SUBCUT BEDTIME [facility] Last Admin: 12/10/18 21:26 Dose: 12 units Liraglutide (Victoza) 1.8 mg SUBCUT DAILY [facility] Last Admin: 12/11/18 08:32 Dose: 1.8 mg Multivitamins/Minerals (Centrum) 1 tab PO DAILY [facility] Last Admin: 12/11/18 08:32 Dose: 1 tab Mupirocin (Bactroban Oint) 0 gm TOP BID [facility] Last Admin: 12/11/18 09:53 Dose: 1 applic Omeprazole (Omeprazole) 20 mg PO ACBREAKFAST [facility] Last Admin: 12/11/18 07:44 Dose: 20 mg Ondansetron HCl (Zofran) 4 mg IV Q4H PRN PRN Reason: Nausea/Vomiting Last Admin: 12/05/18 06:28 Dose: 4 mg Polyethylene Glycol (Miralax) 17 gm PO DAILY PRN PRN Reason: Constipation Sodium Chloride (Saline Flush) 10 ml FLUSH Q8HR PRN PRN Reason: keep vein open Last Admin: 12/10/18 15:08 Dose: 10 ml Discontinued Medications Ceftriaxone Sodium (Rocephin) 1 gm IVPUSH ONETIME ONE Stop: 12/04/18 12:12 Last Admin: 12/04/18 12:20 Dose: 1 gm Gadopentetate Dimeglumine (Magnevist) 20 ml IV ONETIME ONE Stop: 12/05/18 15:08 Last Admin: 12/05/18 15:55 Dose: 20 ml Sodium Chloride (Normal Saline) 1,000 mls @ 999 mls/hr IV .BOLUS ONE Stop: 12/04/18 11:18 Last Admin: 12/04/18 10:30 Dose: 999 mls/hr Sodium Chloride (Normal Saline) 1,000 mls @ 999 mls/hr IV .BOLUS ONE Stop: 12/04/18 12:44 Last Admin: 12/04/18 11:52 Dose: 999 mls/hr Piperacillin/Tazobactam/Dextrose (Zosyn In Dextrose Iso-Osmotic 3.375 Gm) 50 mls @ 12.5 mls/hr IV Q8H [facility] Last Admin: 12/05/18 14:26 Dose: Not Given Daptomycin 500 mg/ Sodium (Chloride) 50 mls @ 100 mls/hr IV Q24H [facility] Last Admin: 12/05/18 14:26 Dose: Not Given Sodium Chloride (Normal Saline) 250 mls @ 30 mls/hr IV DAILY@1200 [facility] Sodium Chloride (Normal Saline) 500 mls @ 30 mls/hr IV DAILY@1200 [facility] Last Admin: 12/05/18 14:26 Dose: Not Given Sodium Chloride (Normal Saline) 600 mls @ 999 mls/hr IV .BOLUS ONE Stop: 12/05/18 13:36 Last Admin: 12/05/18 14:20 Dose: 999 mls/hr Piperacillin/Tazobactam/Dextrose (Zosyn In Dextrose Iso-Osmotic 3.375 Gm) 50 mls @ 12.5 mls/hr IV Q8H [facility] Last Admin: 12/09/18 08:13 Dose: 12.5 mls/hr Sodium Chloride (Normal Saline) 500 mls @ 30 mls/hr IV DAILY@1500 [facility] Last Admin: 12/09/18 15:15 Dose: 30 mls/hr Sodium Chloride (Normal Saline) Confirm Administered Dose 500 mls @ as directed .ROUTE .STK-MED ONE Stop: 12/06/18 05:46 Last Admin: 12/06/18 06:26 Dose: Not Given Insulin Aspart (Novolog) 7 unit SUBCUT TIDMEALS [facility] Last Admin: 12/05/18 08:09 Dose: 7 unit Insulin Aspart (Novolog) 8 unit SUBCUT TIDMEALS [facility] Last Admin: 12/08/18 08:01 Dose: 8 unit Insulin Aspart (Novolog) 10 unit SUBCUT ONETIME ONE Stop: 12/05/18 11:45 Last Admin: 12/05/18 11:48 Dose: 10 unit Insulin Detemir (Levemir) 15 unit SUBCUT DAILY [facility] Insulin Detemir (Levemir) 18 unit SUBCUT DAILY [facility] Last Admin: 12/07/18 08:42 Dose: 18 unit Insulin Detemir (Levemir) 8 unit SUBCUT BEDTIME [facility] Last Admin: 12/07/18 20:25 Dose: 8 units Insulin Human Regular (Novolin R) 8 unit SUBCUT ONETIME ONE; Protocol Stop: 12/04/18 11:45 Last Admin: 12/04/18 12:01 Dose: 8 unit Lorazepam (Ativan) 0.5 mg IVPUSH ONETIME ONE Stop: 12/05/18 13:11 Last Admin: 12/05/18 13:25 Dose: 0.5 mg Mupirocin (Bactroban Oint) 0 gm TOP TID [facility] Sodium Chloride (Saline Flush) 10 ml FLUSH Q8HR PRN PRN Reason: keep vein open Last Admin: 12/04/18 21:56 Dose: 10 ml - Exam Quality Assessment: Denies: Supplemental Oxygen General: Reports: Alert, Oriented Skin: Reports: Other (Dressing intact right great toe) Psy/Mental Status: Reports: Alert, Normal Affect, Normal Mood
== END 2018-12-11 11:42 | disposition home health service (06) | DRG 638 ==
LOC: KA.ED 09:50 → KA.MS 12:13
PROVIDERS: ADMIT Physician Assistant Medical; ATTEND Family Medicine
DX: E11.65 Type 2 diabetes mellitus with hyperglycemia (principal); N39.0 Urinary tract infection, site not specified; L03.115 Cellulitis of right lower limb; M85.471 Solitary bone cyst, right ankle and foot; E78.5 Hyperlipidemia, unspecified; I25.10 Atherosclerotic heart disease of native coronary artery without angina pectoris; I10 Essential (primary) hypertension; M19.071 Primary osteoarthritis, right ankle and foot; F41.0 Panic disorder [episodic paroxysmal anxiety]; H54.7 Unspecified visual loss; E78.00 Pure hypercholesterolemia, unspecified; K21.9 Gastro-esophageal reflux disease without esophagitis; I12.9 Hypertensive chronic kidney disease with stage 1 through stage 4 chronic kidney disease, or unspecified chronic kidney disease; E11.22 Type 2 diabetes mellitus with diabetic chronic kidney disease; N18.9 Chronic kidney disease, unspecified; E11.42 Type 2 diabetes mellitus with diabetic polyneuropathy; F32.9 Major depressive disorder, single episode, unspecified; F41.9 Anxiety disorder, unspecified; E66.9 Obesity, unspecified; E11.621 Type 2 diabetes mellitus with foot ulcer; L97.519 Non-pressure chronic ulcer of other part of right foot with unspecified severity; Z88.1 Allergy status to other antibiotic agents; Z79.82 Long term (current) use of aspirin; Z79.4 Long term (current) use of insulin; Z79.899 Other long term (current) drug therapy; Z88.2 Allergy status to sulfonamides; Z89.412 Acquired absence of left great toe; Z89.422 Acquired absence of other left toe(s); Z86.14 Personal history of Methicillin resistant Staphylococcus aureus infection; Z90.49 Acquired absence of other specified parts of digestive tract; Z68.36 Body mass index [BMI] 36.0-36.9, adult
CPT/HCPCS: 36415; 73720-RT; 80048; 81001; 82803; 82962; 83036; 85025; 85651; 86140; 87040; 87070; 87086; 87205; 96361; 96372; 96374; 99284; A9270-GY; A9579; J0696; J0878; J1815-GY; J1817-GY; J2060; J2405; J2543; J3490; J7030; J7040; J7050

== ENCOUNTER 2019-01-19 08:37 | Emergency (ER) | payer MEDICAID ==
--- NOTE | 2019-01-19 09:15 | EDM.PDOC ---
ED HPI GENERAL MEDICAL PROBLEM - General Chief Complaint: Diabetic Complaint Stated Complaint: ELEVATED BLOOD SUGARS - Related Data Allergies Allergy/AdvReac Type Severity Reaction Status Date / Time vancomycin Allergy Intermediate Rash Verified 07/10/18 12:18 Sulfa (Sulfonamide Allergy Shortness Verified 07/10/18 12:18 Antibiotics) of Breath Home Meds: Home Meds Aspirin [Ecotrin] 325 mg PO DAILY 02/27/17 [History] Calcium Carbonate/Vitamin D3 [Calcium 600 + Vit D 400 Softgl] 1 tab PO BIDMEALS 02/27/17 [History] Omeprazole 20 mg PO ACBREAKFAST 02/27/17 [History] Polyethylene Glycol 3350 [MiraLAX] 17 gm PO DAILY PRN 02/27/17 [History] Liraglutide [Victoza] 1.8 mg SUBCUT DAILY 03/14/17 [History] metFORMIN [Glucophage] 1,000 mg PO BIDMEALS 03/14/17 [History] Insulin Glarg,Human.Rec.Analog [LantUS Solostar] 15 units SQ DAILY 09/10/17 [ History] Multivitamin with Minerals [Multivitamins with Minerals] 1 each PO DAILY [History] Acetaminophen [Tylenol] 650 mg PO Q6H PRN tablet 03/04/18 [Rx] Escitalopram [Lexapro] 20 mg PO DAILY tablet 09/05/18 [Rx] Losartan [Cozaar] 25 mg PO DAILY 12/04/18 [History] Rosuvastatin [Crestor] 5 mg PO DAILY 12/04/18 [History] Doxycycline [Vibramycin] 100 mg PO BID #28 cap 12/11/18 [Rx] Insulin Aspart [NovoLOG] 8 unit SQ TIDMEALS #0 12/11/18 [Rx] Past Medical History HEENT History: Reports: Impaired Vision Cardiovascular History: Reports: High Cholesterol, Hypertension Respiratory History: Reports: None Gastrointestinal History: Reports: GERD Genitourinary History: Reports: Chronic Renal Insuffiency Musculoskeletal History: Reports: Amputation Other Musculoskeletal History: 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 Neurological History: Reports: Neuropathy, Diabetic Psychiatric History: Reports: Anxiety, Depression, Panic Attack Endocrine/Metabolic History: Reports: Diabetes, Type II, IDDM, Obesity/BMI 30+ Hematologic History: Reports: None Immunologic History: Reports: None Oncologic (Cancer) History: Reports: None Dermatologic History: Reports: Cellulitis - Infectious Disease History Infectious Disease History: Reports: Chicken Pox, MRSA, Mumps - Past Surgical History HEENT Surgical History: Reports: None Cardiovascular Surgical History: Reports: None Respiratory Surgical History: Reports: None GI Surgical History: Reports: Appendectomy, Cholecystectomy, Colonoscopy Male Surgical History: Reports: None Endocrine Surgical History: Reports: None Neurological Surgical History: Reports: None Musculoskeletal Surgical History: Reports: Amputation, Arthroscopic Knee Dermatological Surgical History: Reports: None Social & Family History - Family History Family Medical History: Noncontributory HEENT: Reports: None Cardiac: Reports: None Respiratory: Reports: None GI: Reports: None : Reports: None OBGYN: Reports: None Musculoskeletal: Reports: None Neurological: Reports: None Psychiatric: Reports: None Endocrine/Metabolic: Reports: Diabetes, type II Hematologic: Reports: None Immunologic: Reports: None Dermatologic: Reports: None Oncologic: Reports: Prostate - Caffeine Use Caffeine Use: Reports: Soda Course - Vital Signs Last Recorded V/S: Last Vital Signs Temp 96.0 F 01/19/19 08:46 Pulse 107 H 01/19/19 08:46 Resp 20 01/19/19 08:46 BP 129/61 01/19/19 08:46 Pulse Ox 97 01/19/19 08:46 Departure - Discharge Information Referrals: Mendez Hawley [employer] [Primary Care Provider] -
[2019-01-19] MEDS ORDERED: Nitroglycerin 0.4 MG Tab.SL SL ONE (09:18)
[2019-01-19] MEDS ORDERED: Aspirin 81 MG Tab.Chew PO ONE (09:19)
[2019-01-19] MEDS ORDERED: Morphine 2 MG/ML Syringe IVPUSH ONE (09:26)
[2019-01-19] MEDS ORDERED: Ondansetron 4 MG/2 ML SDV IVPUSH ONE (10:05)
[2019-01-19] MEDS: Nitroglycerin 0.4 MG Tab.SL SL ONE ×2 (10:06→10:35)
[2019-01-19] MEDS ORDERED: Insulin Aspart 100 Units/ML 3 ML Pen SUBCUT ONE (10:06)
[2019-01-19 10:11] LABS: ANION GAP 19.6 mmol/L (5-15)
--- NOTE | 2019-01-19 10:17 | CR ---
[id number] RAD/RAD Chest PA or AP 1V EXAM: RAD Chest PA or AP 1V INDICATION: CHEST PAIN COMPARISON: September 03, 2018. DISCUSSION: Cardiomediastinal silhouette is normal in size and contour. Elevation left hemidiaphragm, stable. No infiltrate, effusion, pneumothorax, or edema. IMPRESSION: No acute cardiopulmonary abnormality. Jarvis Kaba DO 01/19/19 1016 Thank you for allowing us to participate in the care of your patient.
[2019-01-19] MEDS ORDERED: Heparin Sodium 5,000 Units/ML Vial IVPUSH ONE (10:50)
[2019-01-19 11:02] VITALS: BP 98/63
--- NOTE | 2019-01-19 17:31 | EDM.PDOC ---
ED HPI GENERAL MEDICAL PROBLEM - General Chief Complaint: Chest Pain Stated Complaint: ELEVATED BLOOD SUGARS, chest pressure Time Seen by Provider: 01/19/19 09:00 Source of Information: Reports: Patient History Limitations: Reports: No Limitations - History of Present Illness INITIAL COMMENTS - FREE TEXT/NARRATIVE: 58-year-old male is brought in by EMS with complaints of pressure over his chest is been continuous and rates it a 10 out of 10. Patient knows that the symptoms started approximately 8 AM this morning when he was at work. He works at the [employer] in [place], [place]. Patient was noted to be diaphoretic with complaints of lightheadedness and mild nausea. Patient felt that this was likely due to his blood sugars. Blood sugars were taken upon arrival and were 355. He is a type II diabetic and has been on insulin for 22 years. He has a history of hypertension, hypercholesterol, mild depression and anxiety. He denies any prior history of chest pain, heart disease, asthma. Onset: Today Onset Date: 01/19/19 Onset Time: 08:00 Duration: Minutes:, Getting Worse Location: Reports: Chest Quality: Reports: Pressure Severity: Severe Improves with: Reports: None Worsens with: Reports: Movement Context: Reports: Activity Associated Symptoms: Reports: Chest Pain, Diaphoresis. Denies: Confusion, Cough , Fever/Chills, Headaches, Nausea/Vomiting, Shortness of Breath, Syncope Chest Pain Score (Numeric/FACES): 10 - Related Data Allergies Allergy/AdvReac Type Severity Reaction Status Date / Time vancomycin Allergy Intermediate Rash Verified 01/19/19 09:13 Sulfa (Sulfonamide Allergy Shortness Verified 01/19/19 09:13 Antibiotics) of Breath Home Meds: Home Meds Aspirin [Ecotrin] 325 mg PO DAILY 02/27/17 [History] Calcium Carbonate/Vitamin D3 [Calcium 600 + Vit D 400 Softgl] 1 tab PO BIDMEALS 02/27/17 [History] Omeprazole 20 mg PO ACBREAKFAST 02/27/17 [History] Polyethylene Glycol 3350 [MiraLAX] 17 gm PO DAILY PRN 02/27/17 [History] Liraglutide [Victoza] 1.8 mg SUBCUT DAILY 03/14/17 [History] metFORMIN [Glucophage] 1,000 mg PO BIDMEALS 03/14/17 [History] Insulin Glarg,Human.Rec.Analog [LantUS Solostar] 15 units SQ DAILY 09/10/17 [ History] Multivitamin with Minerals [Multivitamins with Minerals] 1 each PO DAILY [History] Acetaminophen [Tylenol] 650 mg PO Q6H PRN tablet 03/04/18 [Rx] Escitalopram [Lexapro] 20 mg PO DAILY tablet 09/05/18 [Rx] Losartan [Cozaar] 25 mg PO DAILY 12/04/18 [History] Rosuvastatin [Crestor] 5 mg PO DAILY 12/04/18 [History] Insulin Aspart [NovoLOG] 8 unit SQ TIDMEALS #0 12/11/18 [Rx] ClonazePAM [KlonoPIN] 0.5 mg PO DAILY 01/19/19 [History] Past Medical History HEENT History: Reports: Impaired Vision Cardiovascular History: Reports: High Cholesterol, Hypertension Respiratory History: Reports: None Gastrointestinal History: Reports: GERD Genitourinary History: Reports: Chronic Renal Insuffiency Musculoskeletal History: Reports: Amputation Other Musculoskeletal History: 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 Neurological History: Reports: Neuropathy, Diabetic Psychiatric History: Reports: Anxiety, Depression, Panic Attack Endocrine/Metabolic History: Reports: Diabetes, Type II, IDDM, Obesity/BMI 30+ Hematologic History: Reports: None Immunologic History: Reports: None Oncologic (Cancer) History: Reports: None Dermatologic History: Reports: Cellulitis - Infectious Disease History Infectious Disease History: Reports: Chicken Pox, MRSA, Mumps - Past Surgical History HEENT Surgical History: Reports: None Cardiovascular Surgical History: Reports: None Respiratory Surgical History: Reports: None GI Surgical History: Reports: Appendectomy, Cholecystectomy, Colonoscopy Male Surgical History: Reports: None Endocrine Surgical History: Reports: None Neurological Surgical History: Reports: None Musculoskeletal Surgical History: Reports: Amputation, Arthroscopic Knee Dermatological Surgical History: Reports: None Social & Family History - Family History Family Medical History: Noncontributory HEENT: Reports: None Cardiac: Reports: None Respiratory: Reports: None GI: Reports: None : Reports: None OBGYN: Reports: None Musculoskeletal: Reports: None Neurological: Reports: None Psychiatric: Reports: None Endocrine/Metabolic: Reports: Diabetes, type II Hematologic: Reports: None Immunologic: Reports: None Dermatologic: Reports: None Oncologic: Reports: Prostate - Tobacco Use Smoking Status *Q: Never Smoker - Caffeine Use Caffeine Use: Reports: Soda - Recreational Drug Use Recreational Drug Use: No ED ROS GENERAL - Review of Systems Review Of Systems: See Below Constitutional: Reports: Diaphoresis. Denies: Fever HEENT: Reports: No Symptoms Respiratory: Denies: Shortness of Breath, Wheezing Cardiovascular: Reports: Chest Pain, Blood Pressure Problem, Dyspnea on Exertion , Lightheadedness. Denies: Palpitations Endocrine: Reports: High Glucose GI/Abdominal: Denies: Abdominal Pain : Reports: No Symptoms Musculoskeletal: Reports: No Symptoms Skin: Reports: No Symptoms Neurological: Denies: Headache, Numbness, Paresthesia, Syncope, Trouble Speaking , Change in Speech Psychiatric: Reports: Anxiety, Depression Hematologic/Lymphatic: Reports: No Symptoms Immunologic: Reports: No Symptoms ED EXAM, GENERAL - Physical Exam Exam: See Below Exam Limited By: No Limitations General Appearance: Alert, No Apparent Distress, Obese Eye Exam: Bilateral Eye: EOMI, PERRL Ears: Hearing Grossly Normal Nose: Normal Inspection Throat/Mouth: Normal Inspection, Normal Lips, Normal Gums, Normal Oropharynx, Normal Voice, No Airway Compromise Head: Atraumatic, Normocephalic Neck: Normal Inspection, Supple, Non-Tender, Full Range of Motion. No: Lymphadenopathy (L), Lymphadenopathy (R) Respiratory/Chest: No Respiratory Distress, Lungs Clear, Normal Breath Sounds Cardiovascular: No Edema, No JVD, No Murmur, Tachycardia Peripheral Pulses: 2+: Carotid (L), Carotid (R), Radial (L), Radial (R) GI/Abdominal: Normal Bowel Sounds, Soft, Non-Tender, No Organomegaly, No Distention, No Abnormal Bruit Back Exam: Normal Inspection, Full Range of Motion Extremities: Normal Inspection, Other (Left foot all the toes are amputated. Both feet were examined there is no swelling. No ulcerations no redness skin is benign appearing.) Neurological: Alert, Oriented, CN II-XII Intact, No Motor/Sensory Deficits Psychiatric: Normal Affect, Depressed Mood Skin Exam: Warm, Dry, Intact, Normal Color, No Rash Lymphatic: No Adenopathy EKG INTERPRETATION EKG Date: 01/19/19 Time: 09:14 Rhythm: Other [place]: Normal P-Wave: Present QRS: Normal ST-T: Normal QT: Normal Comparison: NA - No Prior EKG EKG Interpretation Comments: Sinus tachycardia otherwise normal ECG Course - Vital Signs Last Recorded V/S: Last Vital Signs Temp 96.9 F 01/19/19 11:01 Pulse 88 01/19/19 10:50 Resp 25 H 01/19/19 11:01 BP 98/63 01/19/19 11:01 Pulse Ox 98 01/19/19 11:01 - Orders/Labs/Meds Orders: Active Orders 24 hr Category Date Time Status EKG Documentation Completion [RC] ASDIRECTED Care 01/19/19 09:17 Active EKG 12 Lead [EK] Routine Ther 01/19/19 09:16 Ordered Labs: Laboratory Tests 01/19/19 01/19/19 Range/Units 09:35 09:35 WBC 10.16 H (5.00-10.00) 10^3/uL RBC 4.30 L (4.50-6.00) 10^6/uL Hgb 13.6 (13.0-17.0) g/dL Hct 39.4 L (40.0-52.0) % MCV 91.6 (82.0-92.0) fL MCH 31.6 H (27.0-31.0) pg MCHC 34.5 (32.0-36.0) g/dL RDW 12.5 (11.5-14.5) % Plt Count 391 D (150-400) 10^3/uL MPV 10.1 (7.4-10.4) fL Immature Gran % (Auto) 0.1 (0.0-5.0) % Neut % (Auto) 80.9 H (50.0-70.0) % Lymph % (Auto) 12.6 L (20.0-40.0) % [place] % (Auto) 5.1 (2.0-8.0) % Eos % (Auto) 1.1 (1.0-3.0) % Baso % (Auto) 0.2 (0.0-1.0) % Immature Gran # (Auto) 0.01 (0.00-0.50) 10^3/uL Neut # (Auto) 8.22 H (2.50-7.00) 10^3/uL Lymph # (Auto) 1.28 (1.00-4.00) 10^3/uL [place] # (Auto) 0.52 (0.10-0.80) 10^3/uL Eos # (Auto) 0.11 (0.10-0.30) 10^3/uL Baso # (Auto) 0.02 (0.00-0.10) 10^3/uL Sodium 136 (136-145) mmol/L Potassium 4.3 (3.3-5.3) mmol/L Chloride 97 L (98-115) mmol/L Carbon Dioxide 23.7 (21.0-32.0) mmol/L Anion Gap 19.6 H (5-15) mmol/L BUN 20 (6-25) mg/dL Creatinine 1.26 H (0.51-1.17) mg/dL Est Cr Clr Drug Dosing 93.01 mL/min Estimated GFR (MDRD) 59 mL/min Glucose 459 H (75 - 99) mg/dL Calcium 8.8 (8.7-10.3) mg/dL Creatine Kinase 103 (26-276) U/L CK-MB (CK-2) 2.60 (0.00-4.30) ng/mL Troponin I 0.05 (0.00-0.070) ng/mL Meds: Medications Discontinued Medications Generic Name Dose Route Start Last Admin Trade Name Kelvinq PRN Reason Stop Dose Admin Aspirin 324 mg 01/19/19 09:19 01/19/19 09:01 Aspirin PO 01/19/19 09:20 324 mg ONETIME ONE Administration Heparin Sodium (Porcine) 4,000 units 01/19/19 10:50 01/19/19 10:49 Heparin Sodium IVPUSH 01/19/19 10:51 4,000 units ONETIME ONE Administration Nitroglycerin/Dextrose 50 mg in 250 mls @ 3 mls/hr 01/19/19 10:45 01/19/19 10 :55 Nitroglycerin 50 Mg/D5w 250 Ml IV 10 mcg/min TITRATE RUSLAN 3 mls/hr Administration 10 MCG/MIN Insulin Aspart 10 unit 01/19/19 10:06 01/19/19 10:19 Novolog SUBCUT 01/19/19 10:07 10 unit ONETIME ONE Administration Morphine Sulfate 2 mg 01/19/19 09:26 01/19/19 09:33 Morphine IVPUSH 01/19/19 09:27 2 mg ONETIME ONE Administration Nitroglycerin 0.4 mg 01/19/19 09:18 01/19/19 10:03 Nitrostat SL 01/19/19 09:19 0.4 mg ONETIME ONE Administration Nitroglycerin 0.4 mg 01/19/19 10:04 01/19/19 10:35 Nitrostat SL 01/19/19 10:05 0.4 mg ONETIME ONE Administration Ondansetron HCl 8 mg 01/19/19 10:05 01/19/19 10:54 Zofran IVPUSH 01/19/19 10:06 8 mg ONETIME ONE Administration - Re-Assessments/Exams Free Text/Narrative Re-Assessment/Exam: 01/19/19 patient was given chewable aspirin 324 mg and his sublingual nitroglycerin upon arrival. Patient reported his pain reduced to a 5 out of 10. 50% better Patient was given another nitroglycerin with no improvement. He was given 2 mg of IV morphine. Patient reports that his chest pressure is continuing and now feels it's a 7 out of 10. Departure - Departure Time of Disposition: 11:15 Disposition: DC/Tfer to [facility] Reason for Transfer *Q: Primary PCI Indicated Condition: Fair Clinical Impression: Unstable angina pectoris Hyperglycemia due to type 2 diabetes mellitus Qualifiers: Diabetes mellitus skilled nursing insulin use: with oil heaterman use Qualified Code(s): E11.65 - Type 2 diabetes mellitus with hyperglycemia; Z79.4 - shelter (current ) use of insulin Referrals: Mendez Hawley CAREER PLACEMENT SERVICES COUNSELOR [Primary Care Provider] - Forms: ED Department Discharge - My Orders Last 24 Hours: My Active Orders 01/19/19 09:16 EKG 12 Lead [EK] Routine 01/19/19 09:17 EKG Documentation Completion [RC] ASDIRECTED - Assessment/Plan Last 24 Hours: My Active Orders 01/19/19 09:16 EKG 12 Lead [EK] Routine 01/19/19 09:17 EKG Documentation Completion [RC] ASDIRECTED Assessment:: 1. Unstable angina 2. Hyperglycemia with long-term use of insulin type II diabetic. Plan: 1. Patient was started on a nitro drip. Patient was given 4000 units of heparin. 2. Transfer to [facility] for possible PCI. 3. Patient was transferred by ground ambulance.
== END 2019-01-19 13:15 ==
LOC: KA.ED 08:37
DX: I20.0 Unstable angina (principal); E11.65 Type 2 diabetes mellitus with hyperglycemia; Z79.4 Long term (current) use of insulin; I12.9 Hypertensive chronic kidney disease with stage 1 through stage 4 chronic kidney disease, or unspecified chronic kidney disease; E11.22 Type 2 diabetes mellitus with diabetic chronic kidney disease; N18.9 Chronic kidney disease, unspecified; K21.9 Gastro-esophageal reflux disease without esophagitis; F41.9 Anxiety disorder, unspecified; F32.9 Major depressive disorder, single episode, unspecified; Z79.899 Other long term (current) drug therapy; Z79.82 Long term (current) use of aspirin; Z88.1 Allergy status to other antibiotic agents; Z88.2 Allergy status to sulfonamides
CPT/HCPCS: 36415; 71045; 80048; 82550; 82553; 84484; 85025; 93005; 96365; 96366; 96372; 96375; 99285-25; A9270-GY; J1644; J1815-GY; J2270; J2405

== ENCOUNTER 2019-03-05 10:50 | Inpatient (IN) | payer OTHER ==
[2019-03-05] MEDS ORDERED: Sodium Chloride 0.9% 10 ML Syringe FLUSH PRN ×2 (11:14→13:04)
--- NOTE | 2019-03-05 11:22 | EDM.PDOC ---
ED HPI GENERAL MEDICAL PROBLEM - General Chief Complaint: Syncope Stated Complaint: "Passed out at work, fell down, and hit my head" Time Seen by Provider: 03/05/19 11:15 Source of Information: Reports: Patient, EMS History Limitations: Reports: No Limitations - History of Present Illness INITIAL COMMENTS - FREE TEXT/NARRATIVE: 58 YO WM presents to ER after syncopal episode at work. Pt reports he was standing and became lightheaded and fell to the ground hitting the left side of his head on the ground. Pt currently complaining of dizziness and mild left sided headache. Pt denies chest pain, shortness of breath, or recent illnesses. Pt reports he has been eating and drinking well. Pt has had similar episodes of syncope in the past. Pt denies any neck or back pain. Pt able to move all extremities without difficulty. Onset: Today Location: Reports: Head Quality: Reports: Ache Severity: Mild Improves with: Reports: None Worsens with: Reports: None Associated Symptoms: Reports: Headaches, Malaise, Syncope, Weakness. Denies: Chest Pain, Cough, cough w sputum, Diaphoresis, Fever/Chills, Loss of Appetite, Nausea/Vomiting, Rash, Seizure, Shortness of Breath Headache Pain Score (Numeric/FACES): 3 - Related Data Allergies Allergy/AdvReac Type Severity Reaction Status Date / Time vancomycin Allergy Intermediate Rash Verified 03/05/19 11:16 Sulfa (Sulfonamide Allergy Shortness Verified 03/05/19 11:16 Antibiotics) of Breath Home Meds: Home Meds Aspirin [Ecotrin] 325 mg PO DAILY 02/27/17 [History] Calcium Carbonate/Vitamin D3 [Calcium 600 + Vit D 400 Softgl] 1 tab PO BIDMEALS 02/27/17 [History] Omeprazole 20 mg PO ACBREAKFAST 02/27/17 [History] Polyethylene Glycol 3350 [MiraLAX] 17 gm PO DAILY PRN 02/27/17 [History] Liraglutide [Victoza] 1.8 mg SUBCUT DAILY 03/14/17 [History] metFORMIN [Glucophage] 1,000 mg PO BIDMEALS 03/14/17 [History] Insulin Glarg,Human.Rec.Analog [LantUS Solostar] 15 units SQ DAILY 09/10/17 [ History] Multivitamin with Minerals [Multivitamins with Minerals] 1 each PO DAILY [History] Acetaminophen [Tylenol] 650 mg PO Q6H PRN tablet 03/04/18 [Rx] Escitalopram [Lexapro] 20 mg PO DAILY tablet 09/05/18 [Rx] Losartan [Cozaar] 25 mg PO DAILY 12/04/18 [History] Rosuvastatin [Crestor] 5 mg PO DAILY 12/04/18 [History] Insulin Aspart [NovoLOG] 8 unit SQ TIDMEALS #0 12/11/18 [Rx] ClonazePAM [KlonoPIN] 0.5 mg PO DAILY 01/19/19 [History] Past Medical History HEENT History: Reports: Impaired Vision Cardiovascular History: Reports: High Cholesterol, Hypertension Respiratory History: Reports: None Gastrointestinal History: Reports: GERD Genitourinary History: Reports: Chronic Renal Insuffiency Musculoskeletal History: Reports: Amputation Other Musculoskeletal History: 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 Neurological History: Reports: Neuropathy, Diabetic Psychiatric History: Reports: Anxiety, Depression, Panic Attack Endocrine/Metabolic History: Reports: Diabetes, Type II, IDDM, Obesity/BMI 30+ Hematologic History: Reports: None Immunologic History: Reports: None Oncologic (Cancer) History: Reports: None Dermatologic History: Reports: Cellulitis - Infectious Disease History Infectious Disease History: Reports: Chicken Pox, MRSA, Mumps - Past Surgical History HEENT Surgical History: Reports: None Cardiovascular Surgical History: Reports: None Respiratory Surgical History: Reports: None GI Surgical History: Reports: Appendectomy, Cholecystectomy, Colonoscopy Male Surgical History: Reports: None Endocrine Surgical History: Reports: None Neurological Surgical History: Reports: None Musculoskeletal Surgical History: Reports: Amputation, Arthroscopic Knee Dermatological Surgical History: Reports: None Social & Family History - Family History Family Medical History: Noncontributory HEENT: Reports: None Cardiac: Reports: None Respiratory: Reports: None GI: Reports: None : Reports: None OBGYN: Reports: None Musculoskeletal: Reports: None Neurological: Reports: None Psychiatric: Reports: None Endocrine/Metabolic: Reports: Diabetes, type II Hematologic: Reports: None Immunologic: Reports: None Dermatologic: Reports: None Oncologic: Reports: Prostate - Caffeine Use Caffeine Use: Reports: Soda ED ROS GENERAL - Review of Systems Review Of Systems: See Below Constitutional: Reports: No Symptoms HEENT: Reports: No Symptoms Respiratory: Reports: No Symptoms Cardiovascular: Reports: No Symptoms Endocrine: Reports: No Symptoms GI/Abdominal: Reports: No Symptoms : Reports: No Symptoms Musculoskeletal: Reports: No Symptoms Skin: Reports: No Symptoms Neurological: Reports: Dizziness, Headache, Syncope. Denies: Confusion, Numbness, Paresthesia, Pre-Existing Deficit, Seizure, Tingling, Tremors, Trouble Speaking, Difficulty Walking, Change in Speech, Gait Disturbance Psychiatric: Reports: No Symptoms Hematologic/Lymphatic: Reports: No Symptoms Immunologic: Reports: No Symptoms - Physical Exam Exam: See Below Exam Limited By: No Limitations General Appearance: Alert, WD/WN, No Apparent Distress Eye Exam: Bilateral Eye: EOMI, PERRL Ears: Normal External Exam, Normal Canal, Hearing Grossly Normal, Normal TMs Nose: Normal Inspection, Normal Mucosa, No Blood Throat/Mouth: Normal Inspection, Normal Lips, Normal Teeth, Normal Gums, Normal Oropharynx, Normal Voice, No Airway Compromise Head Exam: Normocephalic, Facial Abrasions Neck: Normal Inspection, Supple, Non-Tender, Full Range of Motion Respiratory/Chest: No Respiratory Distress, Lungs Clear, Normal Breath Sounds, No Accessory Muscle Use, Chest Non-Tender Cardiovascular: Normal Peripheral Pulses, Regular Rate, Rhythm, No Edema, No Gallop, No JVD, No Murmur, No Rub GI/Abdominal: Normal Bowel Sounds, Soft, Non-Tender, No Organomegaly, No Distention, No Abnormal Bruit, No Mass Neuro Exam (Abbreviated): Alert, Oriented, CN II-XII Intact, Normal Cognition, Normal Gait, Normal Reflexes, No Motor/Sensory Deficits Back Exam: Normal Inspection, Full Range of Motion, NT Extremities: Normal Inspection, Normal Range of Motion, Non-Tender, No Pedal Edema, Normal Capillary Refill Psychiatric: Depressed Mood, Flat Affect Skin Exam: Warm, Dry, Intact, Normal Color, No Rash EKG INTERPRETATION EKG Date: 03/05/19 Time: 11:14 Rhythm: NSR Rate (Beats/Min): 77 [place]: Normal P-Wave: Present QRS: Normal ST-T: Normal QT: Normal Comparison: No Change Course - Vital Signs Last Recorded V/S: Last Vital Signs Temp 36.6 C 03/05/19 10:50 Pulse 87 03/05/19 12:05 Resp 15 03/05/19 12:05 BP 121/58 L 03/05/19 12:05 Pulse Ox 96 03/05/19 12:05 Orthostatic Blood Pressure [ 79/39 Standing] Orthostatic Blood Pressure [ 110/49 Supine] - Orders/Labs/Meds Orders: Active Orders 24 hr Category Date Time Status Cardiac Monitoring [RC] . DIRECTED Care 03/05/19 11:21 Active EKG Documentation Completion [RC] ASDIRECTED Care 03/05/19 11:13 Active Orthostatic Vital Signs [RC] ASDIRECTED Care 03/05/19 11:21 Active Peripheral IV Care [RC] . DIRECTED Care 03/05/19 11:14 Active Sodium Chloride 0.9% [Saline Flush] Med 03/05/19 11:14 Active 10 ml FLUSH Q8HR PRN Peripheral IV Insertion Adult [OM.PC] Routine Oth 03/05/19 11:14 Ordered EKG 12 Lead [EK] Routine Ther 03/05/19 11:12 Ordered Medication Orders Sodium Chloride (Saline Flush) 10 ml FLUSH Q8HR PRN PRN Reason: keep vein open Labs: Laboratory Tests 03/05/19 03/05/19 03/05/19 Range/Units 11:02 11:45 11:45 WBC 11.49 H (5.00-10.00) 10^3/uL RBC 4.35 L (4.50-6.00) 10^6/uL Hgb 13.9 (13.0-17.0) g/dL Hct 40.5 (40.0-52.0) % MCV 93.1 H (82.0-92.0) fL MCH 32.0 H (27.0-31.0) pg MCHC 34.3 (32.0-36.0) g/dL RDW 12.8 (11.5-14.5) % Plt Count 448 H (150-400) 10^3/uL MPV 10.4 (7.4-10.4) fL Immature Gran % (Auto) 0.5 (0.0-5.0) % Neut % (Auto) 70.2 H (50.0-70.0) % Lymph % (Auto) 21.1 (20.0-40.0) % [place] % (Auto) 6.0 (2.0-8.0) % Eos % (Auto) 2.0 (1.0-3.0) % Baso % (Auto) 0.2 (0.0-1.0) % Immature Gran # (Auto) 0.06 (0.00-0.50) 10^3/uL Neut # (Auto) 8.07 H (2.50-7.00) 10^3/uL Lymph # (Auto) 2.42 (1.00-4.00) 10^3/uL [place] # (Auto) 0.69 (0.10-0.80) 10^3/uL Eos # (Auto) 0.23 (0.10-0.30) 10^3/uL Baso # (Auto) 0.02 (0.00-0.10) 10^3/uL Sodium 134 L (136-145) mmol/L Potassium 5.1 (3.3-5.3) mmol/L Chloride 96 L (98-115) mmol/L Carbon Dioxide 24.2 (21.0-32.0) mmol/L Anion Gap 18.9 H (5-15) mmol/L BUN 29 H (6-25) mg/dL Creatinine 1.74 H (0.51-1.17) mg/dL Est Cr Clr Drug Dosing 52.30 mL/min Estimated GFR (MDRD) 41 mL/min Glucose 187 H (75 - 99) mg/dL POC Glucose 195 H (74-106) mg/dl Calcium 8.9 (8.7-10.3) mg/dL Total Bilirubin 0.9 (0.2-1.0) mg/dL AST 33 (15-37) U/L ALT 21 (12-78) U/L Alkaline Phosphatase 143 H (46-116) IU/L Creatine Kinase 487 H* (26-276) U/L CK-MB (CK-2) 9.20 H* (0.00-4.30) ng/mL Troponin I 0.08 H* (0.00-0.070) ng/mL Total Protein 8.6 H (6.4-8.2) g/dL Albumin 3.94 (3.00-4.80) g/dL 03/05/19 Range/Units 12:01 WBC (5.00-10.00) 10^3/uL RBC (4.50-6.00) 10^6/uL Hgb (13.0-17.0) g/dL Hct (40.0-52.0) % MCV (82.0-92.0) fL MCH (27.0-31.0) pg MCHC (32.0-36.0) g/dL RDW (11.5-14.5) % Plt Count (150-400) 10^3/uL MPV (7.4-10.4) fL Immature Gran % (Auto) (0.0-5.0) % Neut % (Auto) (50.0-70.0) % Lymph % (Auto) (20.0-40.0) % [place] % (Auto) (2.0-8.0) % Eos % (Auto) (1.0-3.0) % Baso % (Auto) (0.0-1.0) % Immature Gran # (Auto) (0.00-0.50) 10^3/uL Neut # (Auto) (2.50-7.00) 10^3/uL Lymph # (Auto) (1.00-4.00) 10^3/uL [place] # (Auto) (0.10-0.80) 10^3/uL Eos # (Auto) (0.10-0.30) 10^3/uL Baso # (Auto) (0.00-0.10) 10^3/uL Sodium (136-145) mmol/L Potassium (3.3-5.3) mmol/L Chloride (98-115) mmol/L Carbon Dioxide (21.0-32.0) mmol/L Anion Gap (5-15) mmol/L BUN (6-25) mg/dL Creatinine (0.51-1.17) mg/dL Est Cr Clr Drug Dosing mL/min Estimated GFR (MDRD) mL/min Glucose (75 - 99) mg/dL POC Glucose 205 H (74-106) mg/dl Calcium (8.7-10.3) mg/dL Total Bilirubin (0.2-1.0) mg/dL AST (15-37) U/L ALT (12-78) U/L Alkaline Phosphatase (46-116) IU/L Creatine Kinase (26-276) U/L CK-MB (CK-2) (0.00-4.30) ng/mL Troponin I (0.00-0.070) ng/mL Total Protein (6.4-8.2) g/dL Albumin (3.00-4.80) g/dL Meds: Medications Generic Name Dose Route Start Last Admin Trade Name Freq PRN Reason Stop Dose Admin Sodium Chloride 10 ml 03/05/19 11:14 Saline Flush FLUSH Q8HR PRN keep vein open Discontinued Medications Generic Name Dose Route Start Last Admin Trade Name Freq PRN Reason Stop Dose Admin Sodium Chloride 1,000 mls @ 999 mls/hr 03/05/19 12:00 03/05/19 12:00 Normal Saline IV 03/05/19 13:00 999 mls/hr .BOLUS ONE Administration - Radiology Interpretation Free Text/Narrative:: CXR- NAD CT head- NAD Departure - Departure Time of Disposition: 13:02 Disposition: Refer to Observation Condition: Poor Clinical Impression: Orthostatic hypotension, Cardiac enzymes elevated Syncope Qualifiers: Encounter type: initial encounter - Discharge Information Referrals: PCP,Unknown [Ordering Only Provider] - Forms: ED Department Discharge - My Orders Last 24 Hours: My Active Orders 03/05/19 11:12 EKG 12 Lead [EK] Routine 03/05/19 11:13 EKG Documentation Completion [RC] ASDIRECTED 03/05/19 11:14 Peripheral IV Care [RC] . DIRECTED Sodium Chloride 0.9% [Saline Flush] 10 ml FLUSH Q8HR PRN Peripheral IV Insertion Adult [OM.PC] Routine 03/05/19 11:21 Cardiac Monitoring [RC] . DIRECTED Orthostatic Vital Signs [RC] ASDIRECTED - Assessment/Plan Last 24 Hours: My Active Orders 03/05/19 11:12 EKG 12 Lead [EK] Routine 03/05/19 11:13 EKG Documentation Completion [RC] ASDIRECTED 03/05/19 11:14 Peripheral IV Care [RC] . DIRECTED Sodium Chloride 0.9% [Saline Flush] 10 ml FLUSH Q8HR PRN Peripheral IV Insertion Adult [OM.PC] Routine 03/05/19 11:21 Cardiac Monitoring [RC] . DIRECTED Orthostatic Vital Signs [RC] ASDIRECTED Assessment:: 1. Syncope 2. orthostatic hypotension 3. elevated cardiac enzymes Plan: 1. admit to obs- Dr Toth 2. NS@150cc/hr 3. Trop I Q4 x 2 4. telemetry 5. supportive care
[2019-03-05] MEDS ORDERED: Sodium Chloride 0.9% 1,000 ML IV ONE (12:00)
--- NOTE | 2019-03-05 12:08 | CT ---
[id number] CT/CT Head WO IV EXAM: CT Head WO IV CLINICAL DATA: SYNOCPE WITH FALL. COMPARISON STUDY: September 03, 2018. FINDINGS: No intracranial hemorrhage, extra-axial fluid collection, mass, or acute ischemia. Soft tissues are unremarkable. Paranasal sinuses and mastoid air cells are clear. IMPRESSION: No acute intracranial findings. Jarvis Kaba DO 03/05/19 [id number] Thank you for allowing us to participate in the care of your patient.
--- NOTE | 2019-03-05 12:12 | CR ---
[id number] RAD/RAD Chest PA And Lateral EXAM: RAD Chest PA And Lateral INDICATION: SYNCOPE WITH FALL. COMPARISON: January 19, 2019. DISCUSSION: Cardiomediastinal silhouette is normal in size and contour. No infiltrate, effusion, pneumothorax, or edema. IMPRESSION: No acute findings or significant change from the prior examination. Justin Horvath MD 03/05/19 [id number] Thank you for allowing us to participate in the care of your patient.
[2019-03-05 12:29] LABS: ANION GAP 18.9 mmol/L (5-15)
[2019-03-05] MEDS: Sodium Chloride 0.9% 1,000 ML IV SCH ×2 (14:00→23:44)
[2019-03-05] MEDS ORDERED: Polyethylene Glycol 3350 Powder 17 GM Packet PO PRN (18:34)
[2019-03-05] MEDS: Calcium Citrate/Vitamin D3 315 MG-250 Unit Tab PO SCH (19:49)
[2019-03-05] MEDS: Acetaminophen 325 MG Tab PO PRN (19:54)
[2019-03-05] MEDS: ClonazePAM 0.5 MG Tab PO SCH (21:23)
[2019-03-06] MEDS: Sodium Chloride 0.9% 1,000 ML IV SCH ×2 (06:58→18:29)
[2019-03-06 07:31] LABS: HEMOGLOBIN A1C 9.7 % (4.3-5.7)
[2019-03-06] MEDS: Omeprazole 20 MG Cap.CR PO SCH (07:37)
[2019-03-06 07:41] LABS: ANION GAP 15.2 mmol/L (5-15); CHLORIDE,CL 101 mmol/L (98-115); SODIUM,NA 136 mmol/L (136-145)
[2019-03-06] MEDS ORDERED: Nitroglycerin 0.4 MG Tab.SL SL PRN (08:06)
[2019-03-06] MEDS ORDERED: Lidocaine 2% 100 MG/5 ML Syringe IVPUSH PRN (08:06)
[2019-03-06] MEDS ORDERED: Atropine 0.1 MG/ML 10 ML Syringe IVPUSH PRN (08:06)
[2019-03-06] MEDS ORDERED: EPINEPHrine 1:10,000 1 MG/10 ML Syringe IVPUSH PRN (08:06)
[2019-03-06] MEDS: Rosuvastatin 5 MG Tab PO SCH (08:31)
[2019-03-06] MEDS: Aspirin 325 MG Tab.EC PO SCH (08:31)
[2019-03-06] MEDS: Calcium Citrate/Vitamin D3 315 MG-250 Unit Tab PO SCH ×2 (08:31→18:00)
[2019-03-06] MEDS: Escitalopram 10 MG Tab PO SCH (08:31)
[2019-03-06] MEDS: Insulin Aspart 100 Units/ML 3 ML Pen SUBCUT SCH ×3 (08:31→17:59)
[2019-03-06] MEDS: ClonazePAM 0.5 MG Tab PO SCH ×2 (08:31→20:09)
[2019-03-06] MEDS: Insulin Detemir 100 Units/ML 3 ML Pen SUBCUT SCH (08:32)
[2019-03-06] MEDS: VICTOZA 0.6 MG/0.1 ML SUBCUT SCH (08:33)
[2019-03-06] MEDS ORDERED: Losartan 25 MG Tab PO SCH (09:00)
[2019-03-06] MEDS ORDERED: Sodium Chloride 0.9% 1,000 ML IV ONE (11:51)
--- NOTE | 2019-03-06 11:54 | PCM.HP ---
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 Prior to this he states that he had been complaining of dizziness. The following was witnessed and he was brought into the emergency department by EMS. He was down only for a few moments and responsive thereafter. He was not noted to have any seizure-like activity around the time of the fall. In the emergency department, he denied any complaints of chest pain , shortness of breath, or other concerns. He reports that he has been eating and drinking well, as well as taking his insulin and blood sugars as usual. Sister though reports that he has been eating a lot more sweets lately. He has had several episodes like this in the past in which she becomes dehydrated and has syncopal episodes. Last month, he also had cardiac workup of echocardiogram and cardiac catheterization, which were normal. This morning on rounds, he reports that he still feels a bit dizzy and lightheaded, but denies any pain or other new concerns. He states he has been taking his medications as prescribed without missed doses. He has not had any recurrent episodes of syncope and admission. He is unaware of any alleviating or aggravating factors to his symptoms. Headache Pain Score (Numeric/FACES): 0 - Related Data Allergies/Adverse Reactions: Allergies Allergy/AdvReac Type Severity Reaction Status Date / Time vancomycin Allergy Intermediate Rash Verified 03/05/19 11:16 Sulfa (Sulfonamide Allergy Shortness Verified 03/05/19 11:16 Antibiotics) of Breath Home Medications: Home Meds Aspirin [Ecotrin] 325 mg PO DAILY 02/27/17 [History] Calcium Carbonate/Vitamin D3 [Calcium 600 + Vit D 400 Softgl] 1 tab PO BIDMEALS 02/27/17 [History] Omeprazole 20 mg PO ACBREAKFAST 02/27/17 [History] Polyethylene Glycol 3350 [MiraLAX] 17 gm PO DAILY PRN 02/27/17 [History] Liraglutide [Victoza] 1.8 mg SUBCUT DAILY 03/14/17 [History] metFORMIN [Glucophage] 1,000 mg PO BIDMEALS 03/14/17 [History] Insulin Glarg,Human.Rec.Analog [LantUS Solostar] 20 units SQ DAILY 09/10/17 [ History] Multivitamin with Minerals [Multivitamins with Minerals] 1 each PO DAILY [History] Acetaminophen [Tylenol] 650 mg PO Q6H PRN tablet 03/04/18 [Rx] Escitalopram [Lexapro] 20 mg PO DAILY tablet 09/05/18 [Rx] Losartan [Cozaar] 25 mg PO DAILY 12/04/18 [History] Rosuvastatin [Crestor] 2.5 mg PO DAILY 12/04/18 [History] Insulin Aspart [NovoLOG] 8 unit SQ TIDMEALS #0 12/11/18 [Rx] ClonazePAM [KlonoPIN] 0.25 mg PO BID 01/19/19 [History] Phentermine HCl [Adipex-P] 1 tab PO DAILY 03/05/19 [History] Past Medical History HEENT History: Reports: Impaired Vision Cardiovascular History: Reports: High Cholesterol, Hypertension Other Cardiovascular History: Orthostatic Hypotension Respiratory History: Reports: None Gastrointestinal History: Reports: GERD Genitourinary History: Reports: Chronic Renal Insuffiency Musculoskeletal History: Reports: Amputation Other Musculoskeletal History: 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 Neurological History: Reports: Neuropathy, Diabetic Psychiatric History: Reports: Anxiety, Depression, Panic Attack Endocrine/Metabolic History: Reports: Diabetes, Type II, IDDM, Obesity/BMI 30+ Hematologic History: Reports: None Immunologic History: Reports: None Oncologic (Cancer) History: Reports: None Dermatologic History: Reports: Cellulitis - Infectious Disease History Infectious Disease History: Reports: Chicken Pox, MRSA, Mumps - Past Surgical History HEENT Surgical History: Reports: None Cardiovascular Surgical History: Reports: None Respiratory Surgical History: Reports: None GI Surgical History: Reports: Appendectomy, Cholecystectomy, Colonoscopy Male Surgical History: Reports: None Endocrine Surgical History: Reports: None Neurological Surgical History: Reports: None Musculoskeletal Surgical History: Reports: Amputation, Arthroscopic Knee Dermatological Surgical History: Reports: None Social & Family History - Family History HEENT: Reports: None Cardiac: Reports: None Respiratory: Reports: None GI: Reports: None : Reports: None OBGYN: Reports: None Musculoskeletal: Reports: None Neurological: Reports: None Psychiatric: Reports: None Endocrine/Metabolic: Reports: Diabetes, type II Hematologic: Reports: None Immunologic: Reports: None Dermatologic: Reports: None Oncologic: Reports: Prostate - Tobacco Use Smoking Status *Q: Never Smoker Second Hand Smoke Exposure: No - Caffeine Use Caffeine Use: Reports: Soda Other Caffeine Use: Diet Coke Caffeine Use Comment: Diet Coke - Recreational Drug Use Recreational Drug Use: No H&P Review of Systems - Review of Systems: Review Of Systems: See Below General: Denies: Fever, Chills, Malaise, Weakness, Fatigue, Diaphoresis, Decreased Appetite HEENT: Denies: Ear Pain, Eye Pain, Headaches Pulmonary: Denies: Shortness of Breath, Wheezing, Cough Cardiovascular: Denies: Chest Pain, Palpitations, Dyspnea on Exertion, Orthopnea , Edema Gastrointestinal: Denies: Abdominal Pain, Constipation, Diarrhea, Nausea Musculoskeletal: Denies: Neck Pain, Shoulder Pain, Arm Pain, Back Pain, Foot Pain Skin: Denies: Jaundice, Rash, Wound Psychiatric: Reports: Anxiety (Controlled). Denies: Confusion, Depression Neurological: Reports: Dizziness. Denies: Headache, Numbness, Tingling, Difficulty Walking Exam - Exam Exam: See Below - Vital Signs Vital Signs: Last Vital Signs Temp 36.5 C 03/06/19 06:06 Pulse 81 03/06/19 06:06 Resp 16 03/06/19 06:06 BP 95/64 03/06/19 10:02 Pulse Ox 93 L 03/06/19 06:06 Orthostatic Blood Pressure [ 79/39 Standing] Orthostatic Blood Pressure [ 110/49 Supine] Weight: 121.79 kg - Exam Physical Exam Comments:: GENERAL: Well-appearing adult white male sitting in hospital bed in no acute distress. HEENT: Normocephalic, atraumatic. Conjunctiva clear. Nares patent without discharge. Mucous membranes mildly dry, posterior pharynx unremarkable. NECK: Supple, no masses. CV: Regular rate and rhythm, no murmurs, rubs, or gallops. 2+ radial pulses. PULMONARY: Normal effort, clear to auscultation bilaterally, no wheezes, rales, or rhonchi. ABDOMEN: Positive bowel sounds, soft, nontender, nondistended. EXTREMITIES: Partial amputation of LLE. No edema, cyanosis, or clubbing. MUSCULOSKELETAL: Moves all extremities well. NEUROLOGICAL: No obvious deficits. DERMATOLOGIC: R great toe tip with superficial abrasion without surrounding erythema. No other rashes or suspicious lesions in exposed areas. PSYCHIATRIC: Alert, interactive, appropriate affect, minimal insight. - Patient Data Lab Results Last 24 hrs: Laboratory Results - last 24 hr 03/05/19 03/05/19 03/05/19 Range/Units 11:45 11:45 12:01 WBC 11.49 H (5.00-10.00) 10^3/uL RBC 4.35 L (4.50-6.00) 10^6/uL Hgb 13.9 (13.0-17.0) g/dL Hct 40.5 (40.0-52.0) % MCV 93.1 H (82.0-92.0) fL MCH 32.0 H (27.0-31.0) pg MCHC 34.3 (32.0-36.0) g/dL RDW 12.8 (11.5-14.5) % Plt Count 448 H (150-400) 10^3/uL MPV 10.4 (7.4-10.4) fL Immature Gran % (Auto) 0.5 (0.0-5.0) % Neut % (Auto) 70.2 H (50.0-70.0) % Lymph % (Auto) 21.1 (20.0-40.0) % Mora % (Auto) 6.0 (2.0-8.0) % Eos % (Auto) 2.0 (1.0-3.0) % Baso % (Auto) 0.2 (0.0-1.0) % Immature Gran # (Auto) 0.06 (0.00-0.50) 10^3/uL Neut # (Auto) 8.07 H (2.50-7.00) 10^3/uL Lymph # (Auto) 2.42 (1.00-4.00) 10^3/uL Mora # (Auto) 0.69 (0.10-0.80) 10^3/uL Eos # (Auto) 0.23 (0.10-0.30) 10^3/uL Baso # (Auto) 0.02 (0.00-0.10) 10^3/uL Sodium 134 L (136-145) mmol/L Potassium 5.1 (3.3-5.3) mmol/L Chloride 96 L (98-115) mmol/L Carbon Dioxide 24.2 (21.0-32.0) mmol/L Anion Gap 18.9 H (5-15) mmol/L BUN 29 H (6-25) mg/dL Creatinine 1.74 H (0.51-1.17) mg/dL Est Cr Clr Drug Dosing 52.30 mL/min Estimated GFR (MDRD) 41 mL/min Glucose 187 H (75 - 99) mg/dL POC Glucose 205 H (74-106) mg/dl Hemoglobin A1c (4.3-5.7) % Calcium 8.9 (8.7-10.3) mg/dL Total Bilirubin 0.9 (0.2-1.0) mg/dL AST 33 (15-37) U/L ALT 21 (12-78) U/L Alkaline Phosphatase 143 H (46-116) IU/L Creatine Kinase 487 H* (26-276) U/L CK-MB (CK-2) 9.20 H* (0.00-4.30) ng/mL Troponin I 0.08 H* (0.00-0.070) ng/mL Total Protein 8.6 H (6.4-8.2) g/dL Albumin 3.94 (3.00-4.80) g/dL 03/05/19 03/05/19 03/05/19 Range/Units 16:20 18:15 21:00 WBC (5.00-10.00) 10^3/uL RBC (4.50-6.00) 10^6/uL Hgb (13.0-17.0) g/dL Hct (40.0-52.0) % MCV (82.0-92.0) fL MCH (27.0-31.0) pg MCHC (32.0-36.0) g/dL RDW (11.5-14.5) % Plt Count (150-400) 10^3/uL MPV (7.4-10.4) fL Immature Gran % (Auto) (0.0-5.0) % Neut % (Auto) (50.0-70.0) % Lymph % (Auto) (20.0-40.0) % Mora % (Auto) (2.0-8.0) % Eos % (Auto) (1.0-3.0) % Baso % (Auto) (0.0-1.0) % Immature Gran # (Auto) (0.00-0.50) 10^3/uL Neut # (Auto) (2.50-7.00) 10^3/uL Lymph # (Auto) (1.00-4.00) 10^3/uL Mora # (Auto) (0.10-0.80) 10^3/uL Eos # (Auto) (0.10-0.30) 10^3/uL Baso # (Auto) (0.00-0.10) 10^3/uL Sodium (136-145) mmol/L Potassium (3.3-5.3) mmol/L Chloride (98-115) mmol/L Carbon Dioxide (21.0-32.0) mmol/L Anion Gap (5-15) mmol/L BUN (6-25) mg/dL Creatinine (0.51-1.17) mg/dL Est Cr Clr Drug Dosing mL/min Estimated GFR (MDRD) mL/min Glucose (75 - 99) mg/dL POC Glucose 123 H (74-106) mg/dl Hemoglobin A1c (4.3-5.7) % Calcium (8.7-10.3) mg/dL Total Bilirubin (0.2-1.0) mg/dL AST (15-37) U/L ALT (12-78) U/L Alkaline Phosphatase (46-116) IU/L Creatine Kinase (26-276) U/L CK-MB (CK-2) (0.00-4.30) ng/mL Troponin I 0.04 0.05 (0.00-0.070) ng/mL Total Protein (6.4-8.2) g/dL Albumin (3.00-4.80) g/dL 03/05/19 03/06/19 03/06/19 Range/Units 21:22 07:10 07:10 WBC 8.73 (5.00-10.00) 10^3/uL RBC 3.97 L (4.50-6.00) 10^6/uL Hgb 12.6 L (13.0-17.0) g/dL Hct 37.5 L (40.0-52.0) % MCV 94.5 H (82.0-92.0) fL MCH 31.7 H (27.0-31.0) pg MCHC 33.6 (32.0-36.0) g/dL RDW 12.8 (11.5-14.5) % Plt Count 369 D (150-400) 10^3/uL MPV 9.6 (7.4-10.4) fL Immature Gran % (Auto) 0.2 (0.0-5.0) % Neut % (Auto) 72.4 H (50.0-70.0) % Lymph % (Auto) 17.2 L (20.0-40.0) % Mora % (Auto) 7.4 (2.0-8.0) % Eos % (Auto) 2.6 (1.0-3.0) % Baso % (Auto) 0.2 (0.0-1.0) % Immature Gran # (Auto) 0.02 (0.00-0.50) 10^3/uL Neut # (Auto) 6.31 (2.50-7.00) 10^3/uL Lymph # (Auto) 1.50 (1.00-4.00) 10^3/uL Mora # (Auto) 0.65 (0.10-0.80) 10^3/uL Eos # (Auto) 0.23 (0.10-0.30) 10^3/uL Baso # (Auto) 0.02 (0.00-0.10) 10^3/uL Sodium 136 (136-145) mmol/L Potassium 5.2 (3.3-5.3) mmol/L Chloride 101 (98-115) mmol/L Carbon Dioxide 25.0 (21.0-32.0) mmol/L Anion Gap 15.2 H (5-15) mmol/L BUN 20 (6-25) mg/dL Creatinine 0.94 (0.51-1.17) mg/dL Est Cr Clr Drug Dosing 96.81 mL/min Estimated GFR (MDRD) > 60 mL/min Glucose 199 H (75 - 99) mg/dL POC Glucose 191 H (74-106) mg/dl Hemoglobin A1c 9.7 H (4.3-5.7) % Calcium 8.4 L (8.7-10.3) mg/dL Total Bilirubin (0.2-1.0) mg/dL AST (15-37) U/L ALT (12-78) U/L Alkaline Phosphatase (46-116) IU/L Creatine Kinase (26-276) U/L CK-MB (CK-2) (0.00-4.30) ng/mL Troponin I (0.00-0.070) ng/mL Total Protein (6.4-8.2) g/dL Albumin (3.00-4.80) g/dL 03/06/19 Range/Units 07:29 WBC (5.00-10.00) 10^3/uL RBC (4.50-6.00) 10^6/uL Hgb (13.0-17.0) g/dL Hct (40.0-52.0) % MCV (82.0-92.0) fL MCH (27.0-31.0) pg MCHC (32.0-36.0) g/dL RDW (11.5-14.5) % Plt Count (150-400) 10^3/uL MPV (7.4-10.4) fL Immature Gran % (Auto) (0.0-5.0) % Neut % (Auto) (50.0-70.0) % Lymph % (Auto) (20.0-40.0) % Mora % (Auto) (2.0-8.0) % Eos % (Auto) (1.0-3.0) % Baso % (Auto) (0.0-1.0) % Immature Gran # (Auto) (0.00-0.50) 10^3/uL Neut # (Auto) (2.50-7.00) 10^3/uL Lymph # (Auto) (1.00-4.00) 10^3/uL Mora # (Auto) (0.10-0.80) 10^3/uL Eos # (Auto) (0.10-0.30) 10^3/uL Baso # (Auto) (0.00-0.10) 10^3/uL Sodium (136-145) mmol/L Potassium (3.3-5.3) mmol/L Chloride (98-115) mmol/L Carbon Dioxide (21.0-32.0) mmol/L Anion Gap (5-15) mmol/L BUN (6-25) mg/dL Creatinine (0.51-1.17) mg/dL Est Cr Clr Drug Dosing mL/min Estimated GFR (MDRD) mL/min Glucose (75 - 99) mg/dL POC Glucose 202 H (74-106) mg/dl Hemoglobin A1c (4.3-5.7) % Calcium (8.7-10.3) mg/dL Total Bilirubin (0.2-1.0) mg/dL AST (15-37) U/L ALT (12-78) U/L Alkaline Phosphatase (46-116) IU/L Creatine Kinase (26-276) U/L CK-MB (CK-2) (0.00-4.30) ng/mL Troponin I (0.00-0.070) ng/mL Total Protein (6.4-8.2) g/dL Albumin (3.00-4.80) g/dL Result Diagrams: 03/06/19 07:10 03/06/19 07:10 Problem List Initiated/Reviewed/Updated: Yes Orders Last 24hrs: Active Orders 24 hr Category Date Time Status Patient Status [ADT] Routine ADT 03/05/19 13:04 Ordered Blood Glucose Check, Bedside [RC] WITHMEALSANDBED Care 03/05/19 13:04 Active Cardiac Monitoring [RC] 0300,0700,1100,1500,1900,2300 Care 03/05/19 13:05 Active Orthostatic Vital Signs [RC] BID Care 03/06/19 11:51 Ordered Oxygen Therapy [RC] PRN Care 03/05/19 13:04 Active Peripheral IV Care [RC] 0900,2100 Care 03/05/19 13:05 Active Up With Assistance [RC] ASDIRECTED Care 03/05/19 13:04 Active VTE/DVT Education [RC] PER UNIT ROUTINE Care 03/05/19 13:04 Active Vital Signs [RC] Q8H Care 03/05/19 13:04 Active [employer] Diet [DIET] Diet 03/05/19 Lunch Active Acetaminophen [Tylenol] Med 03/05/19 18:34 Active 650 mg PO Q6H PRN Aspirin [Ecotrin] Med 03/06/19 09:00 Active 325 mg PO DAILY Calcium Citrate/Vitamin D3 [Calcium Citrate + D] Med 03/05/19 19:15 Active 1 tab PO BIDMEALS ClonazePAM [KlonoPIN] Med 03/05/19 21:00 Active 0.25 mg PO BID Escitalopram [Lexapro] Med 03/06/19 09:00 Active 20 mg PO DAILY Insulin Aspart [NovoLOG] Med 03/06/19 08:00 Active See Protocol SUBCUT TIDMEALS Insulin Detemir [Levemir] Med 03/06/19 09:00 Active 20 unit SUBCUT DAILY Nitroglycerin [Nitrostat] Med 03/06/19 08:06 Active 0.4 mg SL ASDIRECTED PRN Omeprazole Med 03/06/19 07:30 Active 20 mg PO ACBREAKFAST Patient's Own Medication [Ptom] Med 03/06/19 09:00 Active 1.8 each SUBCUT DAILY Polyethylene Glycol 3350 [MiraLAX] Med 03/05/19 18:34 Active 17 gm PO DAILY PRN Rosuvastatin [Crestor] Med 03/06/19 09:00 Active 2.5 mg PO DAILY Sodium Chloride 0.9% @ 999 MLS/HR (1000ml) Med 03/06/19 11:51 Ordered Sodium Chloride 0.9% [Normal Saline] 1,000 ml IV .BOLUS Sodium Chloride 0.9% [Saline Flush] Med 03/05/19 13:04 Active 10 ml FLUSH Q8HR PRN Peripheral IV Insertion Adult [OM.PC] Routine Oth 03/05/19 13:04 Ordered Resuscitation Status Routine Resus Stat 03/05/19 13:04 Ordered Medication Orders Acetaminophen (Tylenol) 650 mg PO Q6H PRN PRN Reason: Pain Last Admin: 03/05/19 19:54 Dose: 650 mg Aspirin (Ecotrin) 325 mg PO DAILY RUSLAN Last Admin: 03/06/19 08:31 Dose: 325 mg Calcium Citrate (Calcium Citrate + D) 1 tab PO BIDMEALS [facility] Last Admin: 03/06/19 08:31 Dose: 1 tab Admin: 03/05/19 19:49 Dose: 1 tab Clonazepam (Klonopin) 0.25 mg PO BID [facility] Last Admin: 03/06/19 08:31 Dose: 0.25 mg Admin: 03/05/19 21:23 Dose: 0.25 mg Escitalopram Oxalate (Lexapro) 20 mg PO DAILY [facility] Last Admin: 03/06/19 08:31 Dose: 20 mg Sodium Chloride (Normal Saline) 1,000 mls @ 999 mls/hr IV .BOLUS ONE Stop: 03/06/19 12:51 Insulin Aspart (Novolog) 0 unit SUBCUT TIDMEALS [facility]; Protocol Last Admin: 03/06/19 08:31 Dose: 2 unit Insulin Detemir (Levemir) 20 unit SUBCUT DAILY [facility] Last Admin: 03/06/19 08:32 Dose: 20 unit Nitroglycerin (Nitrostat) 0.4 mg SL ASDIRECTED PRN PRN Reason: Heart Omeprazole (Omeprazole) 20 mg PO ACBREAKFAST [facility] Last Admin: 03/06/19 07:37 Dose: 20 mg Victoza (Liraglutide ) 0.6 Mg/0.1 Ml 3 Ml Pen 1.8 each SUBCUT DAILY [facility] Last Admin: 03/06/19 08:33 Dose: 1.8 each Polyethylene Glycol (Miralax) 17 gm PO DAILY PRN PRN Reason: Constipation Rosuvastatin Calcium (Crestor) 2.5 mg PO DAILY [facility] Last Admin: 03/06/19 08:31 Dose: 2.5 mg Sodium Chloride (Saline Flush) 10 ml FLUSH Q8HR PRN PRN Reason: keep vein open Assessment/Plan Comment:: HPI summary: 58-year-old male with a history notable for DMT2, prior syncopal episodes, and anxiety, who was in his usual state of health until the date of admission when he states he 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 Prior to this he states that he had been complaining of dizziness. He was not noted to have any seizure-like activity around the time of the fall. He reports that he has been eating and drinking well, as well as taking his insulin and blood sugars as usual. Sister though reports that he has been eating a lot more sweets lately. He has had several episodes like this in the past in which she becomes dehydrated and has syncopal episodes. He was down only for a few moments and responsive thereafter. The fall was witnessed and he was brought into the emergency department by EMS. Of note, last month, he also had cardiac workup of echocardiogram and cardiac catheterization, which were normal. ED course: In the emergency department, he denied any complaints other than dizziness and exam, including neurological, cardiovascular, and pulmonary exams were unremarkable. He had orthostatic hypotension from supine to standing. Labs were notable for elevated creatinine at 1.74, troponin of 0.08, and blood glucose of 195. Hospitalization problems and plan: # Syncopal episode # Orthostatic hypotension # HTN # Acute kidney injury, now resolved # DMT2 # Anxiety He was continued on IVF at 150cc/hr following boluses. Troponins were trended and subsequently normalized. Creatinine normalized on recheck. This morning on rounds, he reports that he still feels a bit dizzy and lightheaded, but denies any pain or other new concerns. He states he has been taking his medications as prescribed without missed doses, but A1c noted to be 9.7%. No concerns on telemetry. He remains orthostatic, but improved from admission. Suspect volume depletion as primary etiology for syncopal episode and LIV, which has now improved. Encourage po intake and monitor for one more day with anticipated discharge to home tomorrow. - NS 1 L bolus - Encourage increased po intake - D/c telemetry, which was ordered on admission - Orthostatic VS BID - Hold losartan - BG QID - Continue liraglutide and insulin Lantus 20un qAM - Low dose insulin sliding scale instead of regular dosing of NovoLog while in hospital - Hold metformin while in hospital - Continue escitalopram and clonazepam Chronic, stable conditions: # HLD: Continue statin. Hold ASA and consider discontinuation at discharge given lack of benefit for primary prevention. # Obesity: Hold phentermine while in hospital. # GERD: Continue PPI; consider de-escalation to H2B in future. # Constipation: Continue PEG. Hospitalization details: # FEN: NS 1 liter bolus. Electrolytes normalized. Diabetic diet. # PPX: Enoxaparin for DVT ppx. # Code status: FULL. # Emergency contact: Sister, who was updated by nursing staff. # Disposition: Observation status, as above. Anticipate discharge to home tomorrow.
[2019-03-07] MEDS: Sodium Chloride 0.9% 1,000 ML IV SCH ×2 (01:35→08:05)
[2019-03-07] MEDS: Omeprazole 20 MG Cap.CR PO SCH (07:44)
[2019-03-07] MEDS: Insulin Aspart 100 Units/ML 3 ML Pen SUBCUT SCH ×5 (07:48→18:23)
[2019-03-07] MEDS: Calcium Citrate/Vitamin D3 315 MG-250 Unit Tab PO SCH ×2 (07:48→18:21)
[2019-03-07] MEDS: Escitalopram 10 MG Tab PO SCH (09:12)
[2019-03-07] MEDS: Rosuvastatin 5 MG Tab PO SCH (09:12)
[2019-03-07] MEDS: Aspirin 325 MG Tab.EC PO SCH (09:12)
[2019-03-07] MEDS: VICTOZA 0.6 MG/0.1 ML SUBCUT SCH (09:14)
[2019-03-07] MEDS: Insulin Detemir 100 Units/ML 3 ML Pen SUBCUT SCH ×2 (09:15→12:12)
--- NOTE | 2019-03-07 11:42 | PCM.PN ---
- General Info Date of Service: 03/07/19 Admission Dx/Problem (Free Text): Syncope/Orthostatic hypotension Subjective Update: This morning on rounds, he reports ongoing dizziness and lightheadedness, but denies any pain or other new concerns. He has not had any recurrent episodes of syncope and admission. He is unaware of any alleviating or aggravating factors to his symptoms. Nursing reports ongoing patient unsteadiness with transfers and rising to standing position, even when done slowly. - Review of Systems HEENT: Reports: Dysphasia - Patient Data Vitals - Most Recent: Last Vital Signs Temp 36.8 C 03/07/19 06:52 Pulse 85 03/07/19 06:52 Resp 20 03/07/19 06:52 BP 122/70 03/07/19 06:52 Pulse Ox 94 L 03/07/19 06:52 Orthostatic Blood Pressure [ 104/39 Sitting] Orthostatic Blood Pressure [ 89/60 Standing] Orthostatic Blood Pressure [ 122/70 Supine] Weight - Most Recent: 121.79 kg I&O - Last 24 Hours: Intake & Output 03/06/19 03/07/19 03/07/19 22:59 06:59 14:59 Intake Total 1069 1395 729 Output Total 900 2000 Balance 169 -605 729 Lab Results Last 24 Hours: Laboratory Results - last 24 hr 03/06/19 03/06/19 03/06/19 Range/Units 11:59 17:24 20:15 POC Glucose 316 H 246 H 308 H (74-106) mg/dl 03/07/19 Range/Units 07:44 POC Glucose 213 H (74-106) mg/dl Med Orders - Current: Current Medications Acetaminophen (Tylenol) 650 mg PO Q6H PRN PRN Reason: Pain Last Admin: 03/05/19 19:54 Dose: 650 mg Aspirin (Ecotrin) 325 mg PO DAILY [facility] Last Admin: 03/07/19 09:12 Dose: 325 mg Calcium Citrate (Calcium Citrate + D) 1 tab PO BIDMEALS [facility] Last Admin: 03/07/19 07:48 Dose: 1 tab Clonazepam (Klonopin) 0.25 mg PO BEDTIME [facility] Escitalopram Oxalate (Lexapro) 20 mg PO DAILY [facility] Last Admin: 03/07/19 09:12 Dose: 20 mg Insulin Aspart (Novolog) 0 unit SUBCUT TIDMEALS [facility]; Protocol Last Admin: 03/07/19 07:48 Dose: 4 unit Insulin Aspart (Novolog) 8 unit SUBCUT TIDMEALS [facility] Insulin Detemir (Levemir) 25 unit SUBCUT DAILY [facility] Metformin HCl (Glucophage) 1,000 mg PO BIDMEALS [facility] Midodrine (Midodrine) 5 mg PO TIDAC [facility] Omeprazole (Omeprazole) 20 mg PO ACBREAKFAST [facility] Last Admin: 03/07/19 07:44 Dose: 20 mg Victoza (Liraglutide ) 0.6 Mg/0.1 Ml 3 Ml Pen 1.8 each SUBCUT DAILY [facility] Last Admin: 03/07/19 09:14 Dose: 1.8 each Polyethylene Glycol (Miralax) 17 gm PO DAILY PRN PRN Reason: Constipation Rosuvastatin Calcium (Crestor) 2.5 mg PO DAILY [facility] Last Admin: 03/07/19 09:12 Dose: 2.5 mg Sodium Chloride (Saline Flush) 10 ml FLUSH Q8HR PRN PRN Reason: keep vein open Last Admin: 03/06/19 13:10 Dose: 10 ml Discontinued Medications Atropine Sulfate (Atropine 0.1 Mg/Ml) 0 mg IVPUSH ASDIRECTED PRN PRN Reason: Heart Clonazepam (Klonopin) 0.25 mg PO BID [facility] Last Admin: 03/06/19 20:09 Dose: 0.25 mg Epinephrine HCl (Epinephrine 1:10,000) 1 mg IVPUSH ASDIRECTED PRN PRN Reason: Heart Sodium Chloride (Normal Saline) 1,000 mls @ 999 mls/hr IV .BOLUS ONE Stop: 03/05/19 13:00 Last Admin: 03/05/19 12:00 Dose: 999 mls/hr Sodium Chloride (Normal Saline) 1,000 mls @ 150 mls/hr IV ASDIRECTED [facility] Last Admin: 03/06/19 06:58 Dose: 150 mls/hr Sodium Chloride (Normal Saline) 1,000 mls @ 999 mls/hr IV .BOLUS ONE Stop: 03/06/19 12:51 Last Admin: 03/06/19 12:01 Dose: 999 mls/hr Sodium Chloride (Normal Saline) 1,000 mls @ 150 mls/hr IV ASDIRECTED [facility] Last Admin: 03/07/19 08:05 Dose: 150 mls/hr Insulin Detemir (Levemir) 20 unit SUBCUT DAILY [facility] Last Admin: 03/07/19 09:15 Dose: 20 unit Lidocaine HCl (Xylocaine 2%) 0 mg IVPUSH ASDIRECTED PRN PRN Reason: Heart Losartan Potassium (Cozaar) 25 mg PO DAILY [facility] Last Admin: 03/06/19 10:02 Dose: Not Given Nitroglycerin (Nitrostat) 0.4 mg SL ASDIRECTED PRN PRN Reason: Heart Sodium Chloride (Saline Flush) 10 ml FLUSH Q8HR PRN PRN Reason: keep vein open - Exam Physical Findings Comments:: GENERAL: Well-appearing adult white male sitting in hospital bed in no acute distress. Patient notably unsteady with initial standing. HEENT: Normocephalic, atraumatic. Conjunctiva clear. Nares patent without discharge. Mucous membranes moist, posterior pharynx unremarkable. NECK: Supple, no masses. CV: Regular rate and rhythm, no murmurs, rubs, or gallops. 2+ radial pulses. PULMONARY: Normal effort, clear to auscultation bilaterally, no wheezes, rales, or rhonchi. ABDOMEN: Positive bowel sounds, soft, nontender, nondistended. EXTREMITIES: Partial amputation of left foot. No edema, cyanosis, or clubbing. MUSCULOSKELETAL: Moves all extremities well. NEUROLOGICAL: No obvious deficits. DERMATOLOGIC: R great toe tip with superficial abrasion without surrounding erythema. No other rashes or suspicious lesions in exposed areas. PSYCHIATRIC: Alert, interactive, appropriate affect, minimal insight. - Problem List Review Problem List Initiated/Reviewed/Updated: Yes - My Orders Last 24 Hours: My Active Orders 03/06/19 11:51 Orthostatic Vital Signs [RC] 0700,1700 03/07/19 11:00 Midodrine 5 mg PO TIDAC 03/07/19 11:29 SCD [Sequential Compression Device] [OM.PC] Routine 03/07/19 11:30 Antiembolic Devices [RC] PER UNIT ROUTINE 03/07/19 12:00 Insulin Aspart [NovoLOG] 8 unit SUBCUT TIDMEALS 03/07/19 18:00 metFORMIN [Glucophage] 1,000 mg PO BIDMEALS 03/07/19 21:00 ClonazePAM [KlonoPIN] 0.25 mg PO BEDTIME 03/08/19 05:11 BASIC METABOLIC PANEL,BMP [CHEM] AM 03/08/19 09:00 Insulin Detemir [Levemir] 25 unit SUBCUT DAILY - Plan Plan:: HPI summary: 58-year-old male with a history notable for DMT2, prior syncopal episodes, and anxiety, who was in his usual state of health until the date of admission when he states he 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 Prior to this he states that he had been complaining of dizziness. He was not noted to have any seizure-like activity around the time of the fall. He reports that he has been eating and drinking well, as well as taking his insulin and blood sugars as usual. Sister though reports that he has been eating a lot more sweets lately. He has had several episodes like this in the past in which she becomes dehydrated and has syncopal episodes. He also reports progressive symptoms of dizziness upon standing for the past several weeks to months. He was down only for a few moments with this episode and responsive thereafter. The fall was witnessed and he was brought into the emergency department by EMS. Of note, last month, he also had cardiac workup of echocardiogram and cardiac catheterization, which were normal. ED course: In the emergency department, he denied any complaints other than dizziness and exam, including neurological, cardiovascular, and pulmonary exams were unremarkable. He had significant orthostatic hypotension from supine to standing. Labs were notable for elevated creatinine at 1.74, troponin of 0.08, and blood glucose of 195. Hospital course and overall plan: He was admitted into observation status for syncope, orthostatic hypotension, and elevated troponin. Troponins were trended and subsequently normalized and no concerns noted on telemetry. With NS boluses and infusion, he was volume resuscitated and reached volume neutral status with resolution of LIV, as well as losartan discontinued, but he remained orthostatic with significant symptoms. A1c also noted to be 9.7%. Due to ongoing significantly symptomatic othostasis, suboptimal control of DMT2 , and extremely high risk for readmission given multiple prior hospital admissions, limited cognitive function and baseline medical insight, it is prudent for transfer to inpatient status for further monitoring and management. Proceed with the following: - Start midodrine 5mg TID - ARNAV stockings - Encourage ongoing increased po intake - Discontinue IVF - Orthostatic VS BID - Restart metformin 1000mg BID - Increase insulin Levemir (Lantus at home) to 25un (from 20un) - Restart NovoLog 8un in addition to medium dose sliding scale TID with meals - Consider PT evaluation in the future if debility noted following improvement in orthostasis Hospitalization problems: # Syncopal episode: No recurrence # Orthostatic hypotension: Persistent. # NSTEMI, type 2: Troponin peak 0.08, then normalized. # Hx HTN: Losartan discontinued. # Acute kidney injury, resolved: Cr peak 1.74, then normalized. # DMT2, uncontrolled, with polyneuropathy: A1c 9.7%. Continue liraglutide 1.2mg daily. Metformin 1000mg BID restarted. Insulin regimen increased to Levemir ( Lantus at home) 25 units and NovoLog 8units plus medium dose sliding scale TID with meals. Monitor BGs QID and increase insulin based on control. # Anxiety: Stable. Continue escitalopram and clonzepam 0.25mg at bedtime. AM clonazepam dose discontinued given possible contribution to dizziness and orthostasis. Chronic, stable conditions: # HLD: Continue statin. ASA discontinued given lack of benefit for primary prevention. # Obesity: Hold phentermine while in hospital. # GERD: Controlled. Continue PPI; consider de-escalation to H2B in future. # Hepatic steatosis # Constipation: Controlled. Continue PEG. # Hx diabetic foot infections and subsequent progressive amputation of left foot # Cognitive impairment Hospitalization details: # FEN: Saline lock IV. Electrolytes normal. Diabetic diet. # PPX: SCDs and ambulation for DVT ppx, for which he is low risk. # Code status: FULL. # Emergency contact: Sister, who was updated by nursing staff. # Disposition: Transfer to inpatient status, as above. Anticipate eventual discharge to home when VS and symptoms improved.
[2019-03-07] MEDS ORDERED: metFORMIN 500 MG Tab PO SCH (12:00)
[2019-03-07] MEDS: Midodrine 5 MG Tab PO SCH ×2 (12:03→17:16)
[2019-03-07] MEDS: metFORMIN 500 MG Tab PO SCH (18:22)
[2019-03-07] MEDS: ClonazePAM 0.5 MG Tab PO SCH (21:15)
[2019-03-08] MEDS: Acetaminophen 325 MG Tab PO PRN (03:19)
[2019-03-08] MEDS: Midodrine 5 MG Tab PO SCH ×4 (06:26→17:49)
[2019-03-08] MEDS: Omeprazole 20 MG Cap.CR PO SCH (06:30)
[2019-03-08] MEDS: Insulin Aspart 100 Units/ML 3 ML Pen SUBCUT SCH ×6 (08:41→17:57)
[2019-03-08] MEDS: Insulin Detemir 100 Units/ML 3 ML Pen SUBCUT SCH (08:43)
[2019-03-08 08:44] LABS: ANION GAP 14.7 mmol/L (5-15); CHLORIDE,CL 99 mmol/L (98-115); SODIUM,NA 135 mmol/L (136-145)
[2019-03-08] MEDS: metFORMIN 500 MG Tab PO SCH ×2 (08:44→17:50)
[2019-03-08] MEDS: Calcium Citrate/Vitamin D3 315 MG-250 Unit Tab PO SCH ×2 (08:44→17:49)
[2019-03-08] MEDS: Escitalopram 10 MG Tab PO SCH (08:44)
[2019-03-08] MEDS: Rosuvastatin 5 MG Tab PO SCH (08:45)
[2019-03-08] MEDS: VICTOZA 0.6 MG/0.1 ML SUBCUT SCH (08:46)
--- NOTE | 2019-03-08 11:16 | PCM.PN ---
- General Info Date of Service: 03/08/19 Admission Dx/Problem (Free Text): Syncope/Orthostatic hypotension Subjective Update: Pt reports while sitting and lying he feels good. If he stands up, he has dizziness and lightheadedness. He denies any pain or other new concerns. He has not had any recurrent episodes of syncope since admission. Nurses report ongoing patient unsteadiness with transfers and rising to standing position, even when done slowly. Functional Status: Denies: New Symptoms - Review of Systems General: Reports: Other (no symptoms other than orthostatic dizziness and light headedness) HEENT: Reports: No Symptoms Pulmonary: Reports: No Symptoms Cardiovascular: Reports: No Symptoms Gastrointestinal: Reports: No Symptoms Genitourinary: Reports: No Symptoms Musculoskeletal: Reports: No Symptoms Skin: Reports: No Symptoms Neurological: Reports: Dizziness - Patient Data Vitals - Most Recent: Last Vital Signs Temp 98.5 F 03/08/19 06:51 Pulse 86 03/08/19 06:51 Resp 20 03/08/19 06:51 BP 137/72 03/08/19 06:51 Pulse Ox 92 L 03/08/19 06:51 Orthostatic Blood Pressure [ 112/64 Sitting] Orthostatic Blood Pressure [ 79/40 Standing] Orthostatic Blood Pressure [ 137/72 Supine] Weight - Most Recent: 268 lb 8 oz I&O - Last 24 Hours: Intake & Output 03/07/19 03/08/19 03/08/19 22:59 06:59 14:59 Intake Total 620 400 Output Total 1000 1700 Balance -380 -1300 Lab Results Last 24 Hours: Laboratory Results - last 24 hr 03/07/19 03/07/19 03/07/19 Range/Units 11:51 17:19 21:11 Sodium (136-145) mmol/L Potassium (3.3-5.3) mmol/L Chloride (98-115) mmol/L Carbon Dioxide (21.0-32.0) mmol/L Anion Gap (5-15) mmol/L BUN (6-25) mg/dL Creatinine (0.51-1.17) mg/dL Est Cr Clr Drug Dosing mL/min Estimated GFR (MDRD) mL/min Glucose (75 - 99) mg/dL POC Glucose 310 H 138 H 191 H (74-106) mg/dl Calcium (8.7-10.3) mg/dL 03/08/19 03/08/19 Range/Units 07:25 07:44 Sodium 135 L (136-145) mmol/L Potassium 4.5 (3.3-5.3) mmol/L Chloride 99 (98-115) mmol/L Carbon Dioxide 25.8 (21.0-32.0) mmol/L Anion Gap 14.7 (5-15) mmol/L BUN 21 (6-25) mg/dL Creatinine 0.87 (0.51-1.17) mg/dL Est Cr Clr Drug Dosing 104.59 mL/min Estimated GFR (MDRD) > 60 mL/min Glucose 214 H (75 - 99) mg/dL POC Glucose 219 H (74-106) mg/dl Calcium 8.8 (8.7-10.3) mg/dL Med Orders - Current: Current Medications Acetaminophen (Tylenol) 650 mg PO Q6H PRN PRN Reason: Pain Last Admin: 03/08/19 03:19 Dose: 650 mg Calcium Citrate (Calcium Citrate + D) 1 tab PO BIDMEALS [facility] Last Admin: 03/08/19 08:44 Dose: 1 tab Clonazepam (Klonopin) 0.25 mg PO BEDTIME [facility] Last Admin: 03/07/19 21:15 Dose: 0.25 mg Escitalopram Oxalate (Lexapro) 20 mg PO DAILY [facility] Last Admin: 03/08/19 08:44 Dose: 20 mg Insulin Aspart (Novolog) 0 unit SUBCUT TIDMEALS [facility]; Protocol Last Admin: 03/08/19 08:41 Dose: 4 unit Insulin Aspart (Novolog) 8 unit SUBCUT TIDMEALS [facility] Last Admin: 03/08/19 08:42 Dose: 8 units Insulin Detemir (Levemir) 25 unit SUBCUT DAILY [facility] Last Admin: 03/08/19 08:43 Dose: 25 units Metformin HCl (Glucophage) 1,000 mg PO BIDMEALS [facility] Last Admin: 03/08/19 08:44 Dose: 1,000 mg Metformin HCl (Glucophage) 1,000 mg PO ONETIME [facility] Last Admin: 03/07/19 12:11 Dose: 1,000 mg Midodrine (Midodrine) 10 mg PO TIDAC [facility] Omeprazole (Omeprazole) 20 mg PO ACBREAKFAST [facility] Last Admin: 03/08/19 06:30 Dose: 20 mg Victoza (Liraglutide ) 0.6 Mg/0.1 Ml 3 Ml Pen 1.8 each SUBCUT DAILY [facility] Last Admin: 03/08/19 08:46 Dose: 1.8 each Polyethylene Glycol (Miralax) 17 gm PO DAILY PRN PRN Reason: Constipation Rosuvastatin Calcium (Crestor) 2.5 mg PO DAILY [facility] Last Admin: 03/08/19 08:45 Dose: 2.5 mg Sodium Chloride (Saline Flush) 10 ml FLUSH Q8HR PRN PRN Reason: keep vein open Last Admin: 03/06/19 13:10 Dose: 10 ml Discontinued Medications Aspirin (Ecotrin) 325 mg PO DAILY [facility] Last Admin: 03/07/19 09:12 Dose: 325 mg Atropine Sulfate (Atropine 0.1 Mg/Ml) 0 mg IVPUSH ASDIRECTED PRN PRN Reason: Heart Clonazepam (Klonopin) 0.25 mg PO BID [facility] Last Admin: 03/06/19 20:09 Dose: 0.25 mg Epinephrine HCl (Epinephrine 1:10,000) 1 mg IVPUSH ASDIRECTED PRN PRN Reason: Heart Sodium Chloride (Normal Saline) 1,000 mls @ 999 mls/hr IV .BOLUS ONE Stop: 03/05/19 13:00 Last Admin: 03/05/19 12:00 Dose: 999 mls/hr Sodium Chloride (Normal Saline) 1,000 mls @ 150 mls/hr IV ASDIRECTED [facility] Last Admin: 03/06/19 06:58 Dose: 150 mls/hr Sodium Chloride (Normal Saline) 1,000 mls @ 999 mls/hr IV .BOLUS ONE Stop: 03/06/19 12:51 Last Admin: 03/06/19 12:01 Dose: 999 mls/hr Sodium Chloride (Normal Saline) 1,000 mls @ 150 mls/hr IV ASDIRECTED [facility] Last Admin: 03/07/19 08:05 Dose: 150 mls/hr Insulin Detemir (Levemir) 20 unit SUBCUT DAILY [facility] Last Admin: 03/07/19 09:15 Dose: 20 unit Lidocaine HCl (Xylocaine 2%) 0 mg IVPUSH ASDIRECTED PRN PRN Reason: Heart Losartan Potassium (Cozaar) 25 mg PO DAILY [facility] Last Admin: 05/23/19 10:02 Dose: Not Given Midodrine (Midodrine) 5 mg PO TIDAC [facility] Last Admin: 03/08/19 06:26 Dose: 5 mg Nitroglycerin (Nitrostat) 0.4 mg SL ASDIRECTED PRN PRN Reason: Heart Sodium Chloride (Saline Flush) 10 ml FLUSH Q8HR PRN PRN Reason: keep vein open - Exam General: Alert, Oriented, Other (intelectually slow) Lungs: Clear to Auscultation Cardiovascular: Regular Rate, Regular Rhythm, No Murmurs GI/Abdominal Exam: Soft, Non-Tender Extremities: Normal Inspection, No Pedal Edema Psy/Mental Status: Alert, Normal Affect, Normal Mood - Problem List Review Problem List Initiated/Reviewed/Updated: Yes - My Orders Last 24 Hours: My Active Orders 03/08/19 17:00 Midodrine 10 mg PO TIDAC - Plan Plan:: HPI summary: 58-year-old male with a history notable for DMT2, prior syncopal episodes, and anxiety, who was in his usual state of health until the date of admission when he states he 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 Prior to this he states that he had been complaining of dizziness. He was not noted to have any seizure-like activity around the time of the fall. He reports that he has been eating and drinking well, as well as taking his insulin and blood sugars as usual. Sister though reports that he has been eating a lot more sweets lately. He has had several episodes like this in the past in which she becomes dehydrated and has syncopal episodes. He also reports progressive symptoms of dizziness upon standing for the past several weeks to months. He was down only for a few moments with this episode and responsive thereafter. The fall was witnessed and he was brought into the emergency department by EMS. Of note, last month, he also had cardiac workup of echocardiogram and cardiac catheterization, which were normal. ED course: In the emergency department, he denied any complaints other than dizziness and exam, including neurological, cardiovascular, and pulmonary exams were unremarkable. He had significant orthostatic hypotension from supine to standing. Labs were notable for elevated creatinine at 1.74, troponin of 0.08, and blood glucose of 195. Hospital course and overall plan: Pt was initially admitted into observation status for syncope, orthostatic hypotension, and elevated troponin. Troponins were trended and subsequently normalized and no concerns noted on telemetry. With NS boluses and infusion, he was volume resuscitated and reached volume neutral status with resolution of LIV , as well as losartan discontinued, but he remained orthostatic with significant symptoms. A1c also noted to be 9.7%. Due to ongoing significantly symptomatic othostasis, suboptimal control of DMT2 , and extremely high risk for readmission given multiple prior hospital admissions, limited cognitive function and baseline medical insight, patient was transferred to inpatient status for further monitoring and management. Pt was started on midodrine 5mg TID. He continues with significant orthostatic hypotension. Will increase Midodrine to 10 mg tid. He is to continue with: - ARNAV stockings - Encourage ongoing increased po intake - IVF were Discontinued - Orthostatic VS BID - with resolution of LIV, metformin 1000mg BID was restarted - Levemir insulin (Lantus at home) was increased to 25un (from 20un) on admission. - NovoLog insulin 8un in addition to medium dose sliding scale TID with meals. - Consider PT evaluation in the future if debility noted following improvement in orthostasis Hospitalization problems: # Syncopal episode: No recurrence # Orthostatic hypotension: Persistent. Suspect this may be related to diabetic neuropathy. # NSTEMI, type 2: Troponin peak 0.08, then normalized. # Hx HTN: Losartan discontinued. # Acute kidney injury, resolved: Cr peak 1.74, then normalized to 0.87 today. # DMT2, uncontrolled, with polyneuropathy: A1c 9.7%. Continue liraglutide 1.8 mg daily. Metformin 1000mg BID restarted. Insulin regimen increased to Levemir ( Lantus at home) 25 units and NovoLog 8units plus medium dose sliding scale TID with meals. Monitor BGs QID and increase insulin based on control. # Anxiety: Stable. Continue escitalopram and clonzepam 0.25mg at bedtime. AM clonazepam dose discontinued given possible contribution to dizziness and orthostasis. Chronic, stable conditions: # HLD: Continue statin. ASA discontinued given lack of benefit for primary prevention. # Obesity: Hold phentermine while in hospital. # GERD: Controlled. Continue PPI; consider de-escalation to H2B in future. # Hepatic steatosis # Constipation: Controlled. Continue PEG. # Hx diabetic foot infections and subsequent progressive amputation of left foot # Cognitive impairment Hospitalization details: # FEN: Saline lock IV. Electrolytes normal. Diabetic diet. # PPX: SCDs and ambulation for DVT ppx, for which he is low risk. # Code status: FULL. # Emergency contact: Sister, who was updated by nursing staff. # Disposition: Given pt's multiple re admissions, cognitive impairment and orthostatic hypotension he is at high risk for readmission. Anticipate eventual discharge to home when VS and symptoms improved.
[2019-03-08] MEDS: ClonazePAM 0.5 MG Tab PO SCH (21:22)
[2019-03-09] MEDS ORDERED: Ondansetron 4 MG Tab.DIS PO PRN (07:00)
[2019-03-09] MEDS: Escitalopram 10 MG Tab PO SCH (08:14)
[2019-03-09] MEDS: Midodrine 5 MG Tab PO SCH ×3 (08:14→18:40)
[2019-03-09] MEDS: metFORMIN 500 MG Tab PO SCH ×2 (08:14→18:40)
[2019-03-09] MEDS: Omeprazole 20 MG Cap.CR PO SCH (08:15)
[2019-03-09] MEDS: Calcium Citrate/Vitamin D3 315 MG-250 Unit Tab PO SCH ×2 (08:15→18:40)
[2019-03-09] MEDS: Rosuvastatin 5 MG Tab PO SCH (08:15)
[2019-03-09] MEDS: Insulin Detemir 100 Units/ML 3 ML Pen SUBCUT SCH (08:16)
[2019-03-09] MEDS: VICTOZA 0.6 MG/0.1 ML SUBCUT SCH (08:16)
[2019-03-09] MEDS: Insulin Aspart 100 Units/ML 3 ML Pen SUBCUT SCH ×6 (08:17→18:41)
[2019-03-09 09:56] LABS: ANION GAP 15.2 mmol/L (5-15); CHLORIDE,CL 97 mmol/L (98-115); SODIUM,NA 133 mmol/L (136-145)
--- NOTE | 2019-03-09 10:39 | PCM.PN ---
- General Info Date of Service: 03/09/19 Admission Dx/Problem (Free Text): Syncope/Orthostatic hypotension Diabetes Subjective Update: Pt reports 1 incident of emesis last night while lying in bed. His BP at that time was 119/78, blood sugar 138. He reports he felt better immediately after the emesis. He has no abdominal pain. He is having nl BMs. He has had no further emesis and reports no nausea except when he is standing. While sitting and lying he feels good. If he stands up, he has nausea, diaphoresis, dizziness and lightheadedness. He has not had any further episodes of syncope since admission. Nurses report ongoing patient unsteadiness with transfers and rising to standing position, even when done slowly. Functional Status: Reports: Ambulating (ambulating only with assistance of 1-2 due to light headedness) - Review of Systems General: Reports: Other (no other symptoms other than those listed above) Pulmonary: Reports: No Symptoms Cardiovascular: Reports: No Symptoms Gastrointestinal: Reports: Nausea (with standing), Vomiting (one time). Denies : Abdominal Pain, Constipation, Decreased Appetite, Diarrhea Genitourinary: Reports: No Symptoms Musculoskeletal: Reports: No Symptoms, Other (history of diabetic toe amputations) Skin: Reports: No Symptoms Neurological: Reports: Dizziness. Denies: Headache, Syncope Psychiatric: Reports: No Symptoms - Patient Data Vitals - Most Recent: Last Vital Signs Temp 97.2 F 03/09/19 06:57 Pulse 95 03/09/19 06:57 Resp 20 03/09/19 06:57 BP 123/72 03/09/19 06:57 Pulse Ox 95 03/09/19 06:57 Orthostatic Blood Pressure [ 100/69 Sitting] Orthostatic Blood Pressure [ 89/62 Standing] Orthostatic Blood Pressure [ 117/73 Supine] Weight - Most Recent: 268 lb 8 oz I&O - Last 24 Hours: Intake & Output 03/08/19 03/09/19 03/09/19 22:59 06:59 14:59 Intake Total 640 300 Output Total 625 700 Balance 15 -400 Lab Results Last 24 Hours: Laboratory Results - last 24 hr 03/08/19 03/08/19 03/08/19 Range/Units 11:39 17:45 20:34 Sodium (136-145) mmol/L Potassium (3.3-5.3) mmol/L Chloride (98-115) mmol/L Carbon Dioxide (21.0-32.0) mmol/L Anion Gap (5-15) mmol/L BUN (6-25) mg/dL Creatinine (0.51-1.17) mg/dL Est Cr Clr Drug Dosing mL/min Estimated GFR (MDRD) mL/min Glucose (75 - 99) mg/dL POC Glucose 280 H 102 134 H (74-106) mg/dl Calcium (8.7-10.3) mg/dL Total Bilirubin (0.2-1.0) mg/dL AST (15-37) U/L ALT (12-78) U/L Alkaline Phosphatase (46-116) IU/L Total Protein (6.4-8.2) g/dL Albumin (3.00-4.80) g/dL 03/09/19 03/09/19 Range/Units 07:09 09:20 Sodium 133 L (136-145) mmol/L Potassium 4.6 (3.3-5.3) mmol/L Chloride 97 L (98-115) mmol/L Carbon Dioxide 25.4 (21.0-32.0) mmol/L Anion Gap 15.2 H (5-15) mmol/L BUN 26 H (6-25) mg/dL Creatinine 0.91 (0.51-1.17) mg/dL Est Cr Clr Drug Dosing 100.00 mL/min Estimated GFR (MDRD) > 60 mL/min Glucose 266 H (75 - 99) mg/dL POC Glucose 173 H (74-106) mg/dl Calcium 8.8 (8.7-10.3) mg/dL Total Bilirubin 1.1 H (0.2-1.0) mg/dL AST 19 (15-37) U/L ALT 20 (12-78) U/L Alkaline Phosphatase 130 H (46-116) IU/L Total Protein 8.0 (6.4-8.2) g/dL Albumin 3.47 (3.00-4.80) g/dL Med Orders - Current: Current Medications Acetaminophen (Tylenol) 650 mg PO Q6H PRN PRN Reason: Pain Last Admin: 03/08/19 03:19 Dose: 650 mg Calcium Citrate (Calcium Citrate + D) 1 tab PO BIDMEALS [facility]LAN Last Admin: 03/09/19 08:15 Dose: 1 tab Clonazepam (Klonopin) 0.25 mg PO BEDTIME [facility] Last Admin: 03/08/19 21:22 Dose: 0.25 mg Escitalopram Oxalate (Lexapro) 20 mg PO DAILY [facility] Last Admin: 03/09/19 08:14 Dose: 20 mg Fludrocortisone Acetate (Florinef) 0.1 mg PO WITHBREAKFAST [facility] Insulin Aspart (Novolog) 0 unit SUBCUT TIDMEALS [facility]; Protocol Last Admin: 03/09/19 08:17 Dose: 2 unit Insulin Aspart (Novolog) 10 unit SUBCUT TIDMEALS [facility] Insulin Detemir (Levemir) 25 unit SUBCUT DAILY [facility] Last Admin: 03/09/19 08:16 Dose: 25 units Metformin HCl (Glucophage) 1,000 mg PO BIDMEALS [facility] Last Admin: 03/09/19 08:14 Dose: 1,000 mg Metformin HCl (Glucophage) 1,000 mg PO ONETIME [facility] Last Admin: 03/07/19 12:11 Dose: 1,000 mg Midodrine (Midodrine) 10 mg PO TIDAC [facility] Last Admin: 03/09/19 08:14 Dose: 10 mg Omeprazole (Omeprazole) 20 mg PO ACBREAKFAST [facility] Last Admin: 03/09/19 08:15 Dose: 20 mg Ondansetron HCl (Zofran Odt) 4 mg PO Q6H PRN PRN Reason: Nausea/Vomiting Last Admin: 03/09/19 07:08 Dose: 4 mg Victoza (Liraglutide ) 0.6 Mg/0.1 Ml 3 Ml Pen 1.8 each SUBCUT DAILY [facility] Last Admin: 03/09/19 08:16 Dose: 1.8 each Polyethylene Glycol (Miralax) 17 gm PO DAILY PRN PRN Reason: Constipation Rosuvastatin Calcium (Crestor) 2.5 mg PO DAILY [facility] Last Admin: 03/09/19 08:15 Dose: 2.5 mg Sodium Chloride (Saline Flush) 10 ml FLUSH Q8HR PRN PRN Reason: keep vein open Last Admin: 03/06/19 13:10 Dose: 10 ml Sodium Chloride (Sodium Chloride) 1 gm PO TIDMEALS [facility] Discontinued Medications Aspirin (Ecotrin) 325 mg PO DAILY [facility] Last Admin: 03/07/19 09:12 Dose: 325 mg Atropine Sulfate (Atropine 0.1 Mg/Ml) 0 mg IVPUSH ASDIRECTED PRN PRN Reason: Heart Clonazepam (Klonopin) 0.25 mg PO BID [facility] Last Admin: 03/06/19 20:09 Dose: 0.25 mg Epinephrine HCl (Epinephrine 1:10,000) 1 mg IVPUSH ASDIRECTED PRN PRN Reason: Heart Sodium Chloride (Normal Saline) 1,000 mls @ 999 mls/hr IV .BOLUS ONE Stop: 03/05/19 13:00 Last Admin: 03/05/19 12:00 Dose: 999 mls/hr Sodium Chloride (Normal Saline) 1,000 mls @ 150 mls/hr IV ASDIRECTED [facility] Last Admin: 03/06/19 06:58 Dose: 150 mls/hr Sodium Chloride (Normal Saline) 1,000 mls @ 999 mls/hr IV .BOLUS ONE Stop: 03/06/19 12:51 Last Admin: 03/06/19 12:01 Dose: 999 mls/hr Sodium Chloride (Normal Saline) 1,000 mls @ 150 mls/hr IV ASDIRECTED [facility] Last Admin: 03/07/19 08:05 Dose: 150 mls/hr Insulin Aspart (Novolog) 8 unit SUBCUT TIDMEALS [facility] Last Admin: 03/09/19 08:17 Dose: 8 units Insulin Detemir (Levemir) 20 unit SUBCUT DAILY [facility] Last Admin: 03/07/19 09:15 Dose: 20 unit Lidocaine HCl (Xylocaine 2%) 0 mg IVPUSH ASDIRECTED PRN PRN Reason: Heart Losartan Potassium (Cozaar) 25 mg PO DAILY [facility] Last Admin: 03/06/19 10:02 Dose: Not Given Midodrine (Midodrine) 5 mg PO TIDAC [facility] Last Admin: 03/08/19 13:03 Dose: Not Given Nitroglycerin (Nitrostat) 0.4 mg SL ASDIRECTED PRN PRN Reason: Heart Sodium Chloride (Saline Flush) 10 ml FLUSH Q8HR PRN PRN Reason: keep vein open - Exam General: Alert, Oriented, Other (mild cognitive delay) Lungs: Clear to Auscultation, Normal Respiratory Effort. No: Decreased Breath Sounds, Crackles, Rales, Rhonchi, Wheezing Cardiovascular: Regular Rate, Regular Rhythm, No Murmurs, Other (tachycardia with orthostatic hypotension) GI/Abdominal Exam: Normal Bowel Sounds, Soft, Non-Tender, No Distention. No: Guarding Extremities: No Pedal Edema, Other (wearing compression stockings) Psy/Mental Status: Alert, Normal Affect, Normal Mood, Other (pleasant man, appropriate in affect, eye contact and conversation) - Problem List Review Problem List Initiated/Reviewed/Updated: Yes - My Orders Last 24 Hours: My Active Orders 03/08/19 17:00 Midodrine 10 mg PO TIDAC 03/09/19 07:00 Ondansetron [Zofran ODT] 4 mg PO Q6H PRN 03/09/19 10:30 Fludrocortisone [Florinef] 0.1 mg PO WITHBREAKFAST 03/09/19 12:00 Insulin Aspart [NovoLOG] 10 unit SUBCUT TIDMEALS Sodium Chloride 1 gm PO TID - Plan Plan:: HPI summary: 58-year-old male with a history notable for DMT2, prior syncopal episodes, and anxiety, who was in his usual state of health until the date of admission when he states he 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 Prior to this he states that he had been complaining of dizziness. He was not noted to have any seizure-like activity around the time of the fall. He reports that he has been eating and drinking well, as well as taking his insulin and blood sugars as usual. Sister though reports that he has been eating a lot more sweets lately. He has had several episodes like this in the past in which she becomes dehydrated and has syncopal episodes. He also reports progressive symptoms of dizziness upon standing for the past several weeks to months. He was down only for a few moments with this episode and responsive thereafter. The fall was witnessed and he was brought into the emergency department by EMS. Of note, last month, he also had cardiac workup of echocardiogram and cardiac catheterization, which were normal. ED course: In the emergency department, he denied any complaints other than dizziness and exam, including neurological, cardiovascular, and pulmonary exams were unremarkable. He had significant orthostatic hypotension from supine to standing. Labs were notable for elevated creatinine at 1.74, troponin of 0.08, and blood glucose of 195. Hospital course and overall plan: Pt was initially admitted into observation status for syncope, orthostatic hypotension, and elevated troponin. Troponins were trended and subsequently normalized and no concerns noted on telemetry. With NS boluses and infusion, he was volume resuscitated and reached volume neutral status with resolution of LIV. His losartan was discontinued. He remains orthostatic with significant symptoms. A1c is 9.7%. Due to ongoing significantly symptomatic othostasis, suboptimal control of DMT2 , and extremely high risk for readmission given multiple prior hospital admissions, limited cognitive function and baseline medical insight, patient was transferred to inpatient status for further monitoring and management. Pt was started on midodrine 5mg TID. He continued with significant orthostatic hypotension. Midodrine was increased to 10 mg tid. He continues with: - ARNAV stockings - PO fluids encouraged - Orthostatic VS BID - with resolution of LIV, metformin 1000mg BID was restarted - Levemir insulin (Lantus at home) was increased to 25un (from 20un) on admission. - NovoLog insulin increased to 10un with meals today in addition to medium dose sliding scale TID with meals. - Consider PT evaluation in the future if debility noted following improvement in orthostasis Hospitalization problems: # Syncopal episode: No recurrence # Orthostatic hypotension: Persistent. Suspect this may be related to diabetic neuropathy. Continue midodrine 10 mg tid, add fludrocortisone 0.1 mg po daily as well as NaCl 1 gm tid with meals. Continue bid orthostatic VS. # DMT2, uncontrolled, with polyneuropathy: A1c 9.7%. Continue liraglutide 1.8 mg daily. Metformin 1000mg BID was restarted. His Blood sugars have continued high FBS 173 this morning, with total daily insulin yesterday being 59 units. His Insulin regimen was increased to Levemir (Lantus at home) 25 units on admission. Will increase NovoLog to 10 units plus medium dose sliding scale TID with meals. Monitor BGs QID and will increase insulin based on control. His diet has been ADA, however, nurses report multiple carbs with each meal. Will ask nurses/dietary to help him make healthier diabetic diet choices. # NSTEMI, type 2: Troponin peak 0.08, then normalized. # Hx HTN: Losartan discontinued. # Acute kidney injury, resolved: Cr peak 1.74, then normalized to 0.91 today. # Anxiety: Stable. Continue escitalopram and clonzepam 0.25mg at bedtime. AM clonazepam dose discontinued given possible contribution to dizziness and orthostasis. Chronic, stable conditions: # HLD: Continue statin. ASA discontinued given lack of benefit for primary prevention. # Obesity: Hold phentermine while in hospital. # GERD: Controlled. Continue PPI; consider de-escalation to H2B in future. # Hepatic steatosis # Constipation: Controlled. Continue PEG. # Hx diabetic foot infections and subsequent progressive amputation of left foot # Cognitive impairment Hospitalization details: # FEN: Saline lock IV. Electrolytes normal. Diabetic diet. # PPX: SCDs and ambulation for DVT ppx, for which he is low risk. # Code status: FULL. # Emergency contact: Sister, who was updated by nursing staff. # Disposition: Given pt's multiple re admissions, cognitive impairment and orthostatic hypotension he is at high risk for readmission. Anticipate eventual discharge to home when VS and symptoms improved. I have consulted with Dr Siva Johns and he is in agreement with plan of care.
[2019-03-09] MEDS: Sodium Chloride 1 GM Tab PO SCH ×2 (13:33→18:40)
[2019-03-09] MEDS: Fludrocortisone 0.1 MG Tab PO SCH (13:33)
[2019-03-09] MEDS: ClonazePAM 0.5 MG Tab PO SCH (21:10)
[2019-03-10] MEDS: Midodrine 5 MG Tab PO SCH ×3 (06:19→17:38)
[2019-03-10] MEDS: Omeprazole 20 MG Cap.CR PO SCH (06:30)
[2019-03-10] MEDS: Rosuvastatin 5 MG Tab PO SCH (08:33)
[2019-03-10] MEDS: metFORMIN 500 MG Tab PO SCH ×2 (08:34→17:39)
[2019-03-10] MEDS: Escitalopram 10 MG Tab PO SCH (08:34)
[2019-03-10] MEDS: Calcium Citrate/Vitamin D3 315 MG-250 Unit Tab PO SCH ×2 (08:34→17:39)
[2019-03-10] MEDS: Sodium Chloride 1 GM Tab PO SCH ×3 (08:34→17:39)
[2019-03-10] MEDS: Fludrocortisone 0.1 MG Tab PO SCH (08:36)
[2019-03-10] MEDS: Insulin Detemir 100 Units/ML 3 ML Pen SUBCUT SCH (08:37)
[2019-03-10] MEDS: VICTOZA 0.6 MG/0.1 ML SUBCUT SCH (08:38)
[2019-03-10] MEDS: Insulin Aspart 100 Units/ML 3 ML Pen SUBCUT SCH ×6 (08:39→17:40)
--- NOTE | 2019-03-10 10:15 | PCM.PN ---
- General Info Date of Service: 03/10/19 Admission Dx/Problem (Free Text): Syncope/Orthostatic hypotension Diabetes Subjective Update: Pt reports no further emesis in last 24 hours. He does continue with nausea, diaphoresis, dizziness and lightheadedness with standing. He continues to need assist of 1-2 people when standing. Nurses report ongoing patient unsteadiness with transfers and rising to standing position, even when done slowly. Pt reports he is following his diabetic diet as instructed - Review of Systems General: Reports: No Symptoms (no symptoms other than those noted in update) Pulmonary: Reports: No Symptoms. Denies: Shortness of Breath, Cough, Wheezing Cardiovascular: Reports: Lightheadedness (with standing). Denies: Chest Pain, Edema Gastrointestinal: Reports: Nausea (nausea with hypotension on standing). Denies : Constipation, Diarrhea, Vomiting Genitourinary: Reports: No Symptoms Musculoskeletal: Reports: No Symptoms Neurological: Reports: Dizziness (with hypotension on standing) Psychiatric: Reports: No Symptoms - Patient Data Vitals - Most Recent: Last Vital Signs Temp 98.5 F 03/10/19 06:50 Pulse 92 03/10/19 06:50 Resp 16 03/10/19 06:50 BP 121/82 03/10/19 06:50 Pulse Ox 95 03/10/19 06:50 Orthostatic Blood Pressure [ 108/66 Sitting] Orthostatic Blood Pressure [ 108/35 Standing] Orthostatic Blood Pressure [ 121/82 Supine] Weight - Most Recent: 268 lb 8 oz I&O - Last 24 Hours: Intake & Output 03/09/19 03/10/19 03/10/19 22:59 06:59 14:59 Intake Total 550 100 Output Total 500 400 Balance 50 -300 Lab Results Last 24 Hours: Laboratory Results - last 24 hr 03/09/19 03/09/19 03/09/19 Range/Units 12:00 17:56 21:10 POC Glucose 223 H 111 H 159 H (74-106) mg/dl 03/10/19 Range/Units 06:30 POC Glucose 180 H (74-106) mg/dl Med Orders - Current: Current Medications Acetaminophen (Tylenol) 650 mg PO Q6H PRN PRN Reason: Pain Last Admin: 03/08/19 03:19 Dose: 650 mg Calcium Citrate (Calcium Citrate + D) 1 tab PO BIDMEALS [facility] Last Admin: 03/10/19 08:34 Dose: 1 tab Clonazepam (Klonopin) 0.25 mg PO BEDTIME [facility] Last Admin: 03/09/19 21:10 Dose: 0.25 mg Escitalopram Oxalate (Lexapro) 20 mg PO DAILY [facility] Last Admin: 03/10/19 08:34 Dose: 20 mg Fludrocortisone Acetate (Florinef) 0.1 mg PO WITHBREAKFAST [facility] Last Admin: 03/10/19 08:36 Dose: 0.1 mg Insulin Aspart (Novolog) 0 unit SUBCUT TIDMEALS [facility]; Protocol Last Admin: 03/10/19 08:40 Dose: 2 unit Insulin Aspart (Novolog) 10 unit SUBCUT TIDMEALS [facility] Last Admin: 03/10/19 08:39 Dose: 10 units Insulin Detemir (Levemir) 25 unit SUBCUT DAILY [facility] Last Admin: 03/10/19 08:37 Dose: 25 units Metformin HCl (Glucophage) 1,000 mg PO BIDMEALS [facility] Last Admin: 03/10/19 08:34 Dose: 1,000 mg Metformin HCl (Glucophage) 1,000 mg PO ONETIME [facility] Last Admin: 03/07/19 12:11 Dose: 1,000 mg Midodrine (Midodrine) 10 mg PO TIDAC [facility] Last Admin: 03/10/19 06:19 Dose: 10 mg Omeprazole (Omeprazole) 20 mg PO ACBREAKFAST [facility] Last Admin: 03/10/19 06:30 Dose: 20 mg Ondansetron HCl (Zofran Odt) 4 mg PO Q6H PRN PRN Reason: Nausea/Vomiting Last Admin: 03/09/19 07:08 Dose: 4 mg Victoza (Liraglutide ) 0.6 Mg/0.1 Ml 3 Ml Pen 1.8 each SUBCUT DAILY [facility] Last Admin: 03/10/19 08:38 Dose: 1.8 each Polyethylene Glycol (Miralax) 17 gm PO DAILY PRN PRN Reason: Constipation Rosuvastatin Calcium (Crestor) 2.5 mg PO DAILY [facility] Last Admin: 03/10/19 08:33 Dose: 2.5 mg Sodium Chloride (Saline Flush) 10 ml FLUSH Q8HR PRN PRN Reason: keep vein open Last Admin: 03/06/19 13:10 Dose: 10 ml Sodium Chloride (Sodium Chloride) 1 gm PO TIDMEALS [facility] Last Admin: 03/10/19 08:34 Dose: 1 gm Discontinued Medications Aspirin (Ecotrin) 325 mg PO DAILY [facility] Last Admin: 03/07/19 09:12 Dose: 325 mg Atropine Sulfate (Atropine 0.1 Mg/Ml) 0 mg IVPUSH ASDIRECTED PRN PRN Reason: Heart Clonazepam (Klonopin) 0.25 mg PO BID [facility] Last Admin: 03/06/19 20:09 Dose: 0.25 mg Epinephrine HCl (Epinephrine 1:10,000) 1 mg IVPUSH ASDIRECTED PRN PRN Reason: Heart Sodium Chloride (Normal Saline) 1,000 mls @ 999 mls/hr IV .BOLUS ONE Stop: 03/05/19 13:00 Last Admin: 03/05/19 12:00 Dose: 999 mls/hr Sodium Chloride (Normal Saline) 1,000 mls @ 150 mls/hr IV ASDIRECTED [facility] Last Admin: 03/06/19 06:58 Dose: 150 mls/hr Sodium Chloride (Normal Saline) 1,000 mls @ 999 mls/hr IV .BOLUS ONE Stop: 03/06/19 12:51 Last Admin: 03/06/19 12:01 Dose: 999 mls/hr Sodium Chloride (Normal Saline) 1,000 mls @ 150 mls/hr IV ASDIRECTED [facility] Last Admin: 03/07/19 08:05 Dose: 150 mls/hr Insulin Aspart (Novolog) 8 unit SUBCUT TIDMEALS [facility] Last Admin: 03/09/19 08:17 Dose: 8 units Insulin Detemir (Levemir) 20 unit SUBCUT DAILY [facility] Last Admin: 03/07/19 09:15 Dose: 20 unit Lidocaine HCl (Xylocaine 2%) 0 mg IVPUSH ASDIRECTED PRN PRN Reason: Heart Losartan Potassium (Cozaar) 25 mg PO DAILY [facility] Last Admin: 03/06/19 10:02 Dose: Not Given Midodrine (Midodrine) 5 mg PO TIDAC [facility] Last Admin: 03/08/19 13:03 Dose: Not Given Nitroglycerin (Nitrostat) 0.4 mg SL ASDIRECTED PRN PRN Reason: Heart Sodium Chloride (Saline Flush) 10 ml FLUSH Q8HR PRN PRN Reason: keep vein open - Exam General: Alert, Oriented, Cooperative Lungs: Clear to Auscultation Cardiovascular: Regular Rate, Regular Rhythm, Other (significant orthostatic hypotension) GI/Abdominal Exam: Soft, Non-Tender Extremities: No Pedal Edema (not wearing compression stockings as he is preparing for shower, however, he does wear the compression stockings at all other times), Other (toe amputations) Psy/Mental Status: Alert, Normal Affect, Normal Mood - Problem List Review Problem List Initiated/Reviewed/Updated: Yes - My Orders Last 24 Hours: My Active Orders 03/09/19 10:30 Fludrocortisone [Florinef] 0.1 mg PO WITHBREAKFAST 03/10/19 increase florinef to 0.2 mg daily NaCl 1 gm tid with meals. 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 Prior to this he states that he had been complaining of dizziness. He was not noted to have any seizure-like activity around the time of the fall. He reports that he has been eating and drinking well, as well as taking his insulin and blood sugars as usual. Sister does report that he has been eating a lot more sweets lately. He has had several episodes like this in the past in which he becomes dehydrated and has syncopal episodes. He also reports progressive symptoms of dizziness upon standing for the past several weeks to months. He was down only for a few moments with this episode and responsive thereafter. The fall was witnessed and he was brought into the emergency department by EMS. Of note, last month, he also had cardiac workup of echocardiogram and cardiac catheterization, which were normal. ED course: In the emergency department, he denied any complaints other than dizziness and exam, including neurological, cardiovascular, and pulmonary exams were unremarkable. He had significant orthostatic hypotension from supine to standing. Labs were notable for elevated creatinine at 1.74, troponin of 0.08, and blood glucose of 195. Hospital course and overall plan: Pt was initially admitted into observation status for syncope, orthostatic hypotension, and elevated troponin. Troponins were trended and subsequently normalized and no concerns noted on telemetry. With NS boluses and infusion, he was volume resuscitated and reached volume neutral status with resolution of LIV. His losartan was discontinued. He remains orthostatic with significant symptoms. A1c is 9.7%. Due to ongoing significantly symptomatic othostasis, suboptimal control of DMT2 , and extremely high risk for readmission given multiple prior hospital admissions, limited cognitive function and baseline medical insight, patient was transferred to inpatient status for further monitoring and management. Pt was started on midodrine 5mg TID. He continued with significant orthostatic hypotension. Midodrine was increased to 10 mg tid. Florinef 0.1 mg and NaCl 1 gm tid with meals was added yesterday. He continues with the symptomatic orthostatic hypotension. He continues with: - ARNAV stockings - PO fluids encouraged - Orthostatic VS BID - with resolution of LIV, metformin 1000mg BID was restarted - Levemir insulin (Lantus at home) was increased to 25un (from 20un) on admission. - NovoLog insulin increased to 10un with meals today in addition to medium dose sliding scale TID with meals. - Consider PT evaluation in the future if debility noted following improvement in orthostasis Hospitalization problems: # Syncopal episode: No recurrence # Orthostatic hypotension: Persistent. Suspect this may be related to diabetic neuropathy. Continue midodrine 10 mg tid, increase fludrocortisone to 0.2 mg po daily as well as NaCl 1 gm tid with meals. Continue bid orthostatic VS. Will ask the nurses to walk with pt more frequently. # DMT2, uncontrolled, with polyneuropathy: A1c 9.7%. Continue liraglutide 1.8 mg daily. Metformin 1000mg BID was restarted. His Blood sugars have continued high. FBS 180 this morning, with total daily insulin yesterday being 61 units. Will increase Levemir to 28 units. NovoLog was increased to 10 units on 03/09 , medium dose sliding scale continues TID with meals. Monitor BGs QID and will increase insulin based on control. # NSTEMI, type 2: Troponin peak 0.08, then normalized. # Hx HTN: Losartan discontinued. # Acute kidney injury, resolved: Cr peak 1.74, then normalized to 0.91 today. # Anxiety: Stable. Continue escitalopram and clonzepam 0.25mg at bedtime. AM clonazepam dose discontinued given possible contribution to dizziness and orthostasis. Chronic, stable conditions: # HLD: Continue statin. ASA discontinued given lack of benefit for primary prevention. # Obesity: Hold phentermine while in hospital. # GERD: Controlled. Continue PPI; consider de-escalation to H2B in future. # Hepatic steatosis # Constipation: Controlled. Continue PEG. # Hx diabetic foot infections and subsequent progressive amputation of left foot # Cognitive impairment Hospitalization details: # FEN: Saline lock IV. Electrolytes normal. Diabetic diet. # PPX: SCDs and ambulation for DVT ppx, for which he is low risk. # Code status: FULL. # Emergency contact: Sister, who was updated by nursing staff. # Disposition: Given pt's multiple re admissions, cognitive impairment and orthostatic hypotension he is at high risk for readmission. Anticipate eventual discharge to home when VS and symptoms improved. I have consulted with Dr Siva Johns and he is in agreement with plan of care.
[2019-03-10] MEDS ORDERED: Fludrocortisone 0.1 MG Tab PO ONE (10:50)
[2019-03-10] MEDS: ClonazePAM 0.5 MG Tab PO SCH (20:20)
[2019-03-11] MEDS: Midodrine 5 MG Tab PO SCH ×3 (06:19→17:11)
[2019-03-11] MEDS: Sodium Chloride 1 GM Tab PO SCH ×3 (09:04→17:11)
[2019-03-11] MEDS: Calcium Citrate/Vitamin D3 315 MG-250 Unit Tab PO SCH ×2 (09:04→17:11)
[2019-03-11] MEDS: metFORMIN 500 MG Tab PO SCH ×2 (09:04→17:11)
[2019-03-11] MEDS: Escitalopram 10 MG Tab PO SCH (09:04)
[2019-03-11] MEDS: Rosuvastatin 5 MG Tab PO SCH (09:05)
[2019-03-11] MEDS: Omeprazole 20 MG Cap.CR PO SCH (09:05)
[2019-03-11] MEDS: Insulin Detemir 100 Units/ML 3 ML Pen SUBCUT SCH (09:06)
[2019-03-11] MEDS: VICTOZA 0.6 MG/0.1 ML SUBCUT SCH (09:07)
[2019-03-11] MEDS: Insulin Aspart 100 Units/ML 3 ML Pen SUBCUT SCH ×6 (09:08→18:02)
--- NOTE | 2019-03-11 10:15 | PCM.PN ---
- General Info Date of Service: 03/11/19 Functional Status: Reports: Pain Controlled, Tolerating Diet, Urinating. Denies : Ambulating - Review of Systems General: Reports: No Symptoms HEENT: Reports: No Symptoms Pulmonary: Reports: No Symptoms Cardiovascular: Reports: Orthopnea, Lightheadedness. Denies: Edema Gastrointestinal: Reports: No Symptoms Genitourinary: Reports: No Symptoms Musculoskeletal: Reports: No Symptoms Skin: Reports: No Symptoms Neurological: Reports: Dizziness, Difficulty Walking, Gait Disturbance. Denies : Confusion, Headache, Numbness, Seizure, Syncope, Tingling Psychiatric: Denies: Confusion, Depression, Anxiety, Agitation - Patient Data Vitals - Most Recent: Last Vital Signs Temp 98.1 F 03/11/19 06:08 Pulse 92 03/11/19 06:08 Resp 18 03/11/19 06:08 BP 154/83 H 03/11/19 06:08 Pulse Ox 96 03/11/19 07:45 Orthostatic Blood Pressure [ 107/66 Sitting] Orthostatic Blood Pressure [ 89/60 Standing] Orthostatic Blood Pressure [ 131/79 Supine] Weight - Most Recent: 268 lb 8 oz I&O - Last 24 Hours: Intake & Output 03/10/19 03/11/19 03/11/19 22:59 06:59 14:59 Intake Total 800 300 Output Total 300 1200 Balance 500 -900 Lab Results Last 24 Hours: Laboratory Results - last 24 hr 03/10/19 03/10/19 03/10/19 Range/Units 11:46 17:37 20:20 POC Glucose 227 H 129 H 159 H (74-106) mg/dl Med Orders - Current: Current Medications Acetaminophen (Tylenol) 650 mg PO Q6H PRN PRN Reason: Pain Last Admin: 03/08/19 03:19 Dose: 650 mg Calcium Citrate (Calcium Citrate + D) 1 tab PO BIDMEALS [facility] Last Admin: 03/11/19 09:04 Dose: 1 tab Clonazepam (Klonopin) 0.25 mg PO BEDTIME [facility] Last Admin: 03/10/19 20:20 Dose: 0.25 mg Escitalopram Oxalate (Lexapro) 20 mg PO DAILY [facility] Last Admin: 03/11/19 09:04 Dose: 20 mg Fludrocortisone Acetate (Florinef) 0.2 mg PO WITHBREAKFAST [facility] Insulin Aspart (Novolog) 0 unit SUBCUT TIDMEALS [facility]; Protocol Last Admin: 03/11/19 09:08 Dose: 2 unit Insulin Aspart (Novolog) 10 unit SUBCUT [facility]IDMEALS [facility] Last Admin: 03/11/19 09:09 Dose: 10 units Insulin Detemir (Levemir) 28 unit SUBCUT DAILY [facility] Last Admin: 03/11/19 09:06 Dose: 28 units Metformin HCl (Glucophage) 1,000 mg PO BIDMEALS [facility] Last Admin: 03/11/19 09:04 Dose: 1,000 mg Metformin HCl (Glucophage) 1,000 mg PO ONETIME [facility] Last Admin: 03/07/19 12:11 Dose: 1,000 mg Midodrine (Midodrine) 10 mg PO TIDAC [facility] Last Admin: 03/11/19 06:19 Dose: 10 mg Omeprazole (Omeprazole) 20 mg PO ACBREAKFAST [facility] Last Admin: 03/11/19 09:05 Dose: 20 mg Ondansetron HCl (Zofran Odt) 4 mg PO Q6H PRN PRN Reason: Nausea/Vomiting Last Admin: 03/09/19 07:08 Dose: 4 mg Victoza (Liraglutide ) 0.6 Mg/0.1 Ml 3 Ml Pen 1.8 each SUBCUT DAILY [facility] Last Admin: 03/11/19 09:07 Dose: 1.8 each Polyethylene Glycol (Miralax) 17 gm PO DAILY PRN PRN Reason: Constipation Rosuvastatin Calcium (Crestor) 2.5 mg PO DAILY [facility] Last Admin: 03/11/19 09:05 Dose: 2.5 mg Sodium Chloride (Saline Flush) 10 ml FLUSH Q8HR PRN PRN Reason: keep vein open Last Admin: 03/06/19 13:10 Dose: 10 ml Sodium Chloride (Sodium Chloride) 1 gm PO TIDMEALS [facility] Last Admin: 03/11/19 09:04 Dose: 1 gm Discontinued Medications Aspirin (Ecotrin) 325 mg PO DAILY [facility] Last Admin: 03/07/19 09:12 Dose: 325 mg Atropine Sulfate (Atropine 0.1 Mg/Ml) 0 mg IVPUSH ASDIRECTED PRN PRN Reason: Heart Clonazepam (Klonopin) 0.25 mg PO BID [facility] Last Admin: 03/06/19 20:09 Dose: 0.25 mg Epinephrine HCl (Epinephrine 1:10,000) 1 mg IVPUSH ASDIRECTED PRN PRN Reason: Heart Fludrocortisone Acetate (Florinef) 0.1 mg PO WITHBREAKFAST [facility] Last Admin: 03/10/19 08:36 Dose: 0.1 mg Fludrocortisone Acetate (Florinef) 0.1 mg PO ONETIME ONE Stop: 03/10/19 10:51 Last Admin: 03/10/19 11:48 Dose: 0.1 mg Sodium Chloride (Normal Saline) 1,000 mls @ 999 mls/hr IV .BOLUS ONE Stop: 03/05/19 13:00 Last Admin: 03/05/19 12:00 Dose: 999 mls/hr Sodium Chloride (Normal Saline) 1,000 mls @ 150 mls/hr IV ASDIRECTED [facility] Last Admin: 03/06/19 06:58 Dose: 150 mls/hr Sodium Chloride (Normal Saline) 1,000 mls @ 999 mls/hr IV .BOLUS ONE Stop: 03/06/19 12:51 Last Admin: 03/06/19 12:01 Dose: 999 mls/hr Sodium Chloride (Normal Saline) 1,000 mls @ 150 mls/hr IV ASDIRECTED [facility] Last Admin: 03/07/19 08:05 Dose: 150 mls/hr Insulin Aspart (Novolog) 8 unit SUBCUT TIDMEALS [facility] Last Admin: 03/09/19 08:17 Dose: 8 units Insulin Detemir (Levemir) 20 unit SUBCUT DAILY [facility] Last Admin: 03/07/19 09:15 Dose: 20 unit Insulin Detemir (Levemir) 25 unit SUBCUT DAILY [facility] Last Admin: 03/10/19 08:37 Dose: 25 units Lidocaine HCl (Xylocaine 2%) 0 mg IVPUSH ASDIRECTED PRN PRN Reason: Heart Losartan Potassium (Cozaar) 25 mg PO DAILY [facility] Last Admin: 03/06/19 10:02 Dose: Not Given Midodrine (Midodrine) 5 mg PO TIDAC [facility] Last Admin: 03/08/19 13:03 Dose: Not Given Nitroglycerin (Nitrostat) 0.4 mg SL ASDIRECTED PRN PRN Reason: Heart Sodium Chloride (Saline Flush) 10 ml FLUSH Q8HR PRN PRN Reason: keep vein open - Exam Quality Assessment: No: Supplemental Oxygen General: Alert, Oriented, Cooperative, No Acute Distress HEENT: EOMI, Mucous Membr. Moist/[place] Neck: No JVD Lungs: Clear to Auscultation, Normal Respiratory Effort Cardiovascular: Regular Rate, Regular Rhythm GI/Abdominal Exam: Soft Extremities: No Pedal Edema Peripheral Pulses: 3+: Radial (L), Radial (R) Skin: Warm, Dry, Intact Neurological: Normal Speech, Normal Tone, Sensation Intact, Cranial Nerves Intact Psy/Mental Status: Alert, Normal Affect, Normal Mood - Problem List Review Problem List Initiated/Reviewed/Updated: Yes - Plan Plan:: HPI summary: 58-year-old male with a history notable for DMT2, prior syncopal episodes, and anxiety, who was in his usual state of health until the date of admission when 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 Prior to this he states that he had been complaining of dizziness. He was not noted to have any seizure-like activity around the time of the fall. He reports that he has been eating and drinking well, as well as taking his insulin and blood sugars as usual. Sister does report that he has been eating a lot more sweets lately. He has had several episodes like this in the past in which he becomes dehydrated and has syncopal episodes. He also reports progressive symptoms of dizziness upon standing for the past several weeks to months. He was down only for a few moments with this episode and responsive thereafter. The fall was witnessed and he was brought into the emergency department by EMS. Of note, last month, he also had cardiac workup of echocardiogram and cardiac catheterization, which were normal. ED course: In the emergency department, he denied any complaints other than dizziness and exam, including neurological, cardiovascular, and pulmonary exams were unremarkable. He had significant orthostatic hypotension from supine to standing. Labs were notable for elevated creatinine at 1.74, troponin of 0.08, and blood glucose of 195. Hospital course and overall plan: Pt was initially admitted into observation status for syncope, orthostatic hypotension, and elevated troponin. Troponins were trended and subsequently normalized and no concerns noted on telemetry. With NS boluses and infusion, he was volume resuscitated and reached volume neutral status with resolution of LIV. His losartan was discontinued. He remains orthostatic with significant symptoms. A1c is 9.7%. Due to ongoing significantly symptomatic othostasis, suboptimal control of DMT2 , and extremely high risk for readmission given multiple prior hospital admissions, limited cognitive function and baseline medical insight, patient was transferred to inpatient status for further monitoring and management. Pt was started on midodrine 5mg TID. He continued with significant orthostatic hypotension. Midodrine was increased to 10 mg tid. Florinef 0.1 mg and NaCl 1 gm tid with meals was added yesterday. He continues with the symptomatic orthostatic hypotension. He continues with: - ARNAV stockings - PO fluids encouraged - Orthostatic VS BID - with resolution of LIV, metformin 1000mg BID was restarted - Levemir insulin (Lantus at home) was increased to 25un (from 20un) on admission. - NovoLog insulin increased to 10un with meals today in addition to medium dose sliding scale TID with meals. - Consider PT evaluation in the future if debility noted following improvement in orthostasis Hospitalization problems: # Syncopal episode: No recurrence # Orthostatic hypotension: Persistent. Suspect this may be related to diabetic neuropathy. Continue midodrine 10 mg tid, increase fludrocortisone to 0.2 mg po daily as well as NaCl 1 gm tid with meals. Continue bid orthostatic VS. Will ask the nurses to walk with pt more frequently. # DMT2, uncontrolled, with polyneuropathy: A1c 9.7%. Continue liraglutide 1.8 mg daily. Metformin 1000mg BID was restarted. Recent increase Levemir to 28 units. NovoLog was increased to 10 units on 03/09, medium dose sliding scale continues TID with meals. Monitor BGs QID and will increase insulin based on control. # NSTEMI, type 2: Troponin peak 0.08, then normalized. # Hx HTN: Losartan discontinued. # Acute kidney injury, resolved: Cr peak 1.74, then normalized # Anxiety: Stable. Continue escitalopram and clonzepam 0.25mg at bedtime. AM clonazepam dose discontinued given possible contribution to dizziness and orthostasis. Chronic, stable conditions: # HLD: Continue statin. ASA discontinued given lack of benefit for primary prevention. # Obesity: Hold phentermine while in hospital. # GERD: Controlled. Continue PPI; consider de-escalation to H2B in future. # Hepatic steatosis # Constipation: Controlled. Continue PEG. # Hx diabetic foot infections and subsequent progressive amputation of left foot # Cognitive impairment Hospitalization details: # FEN: Saline lock IV. Electrolytes normal. Diabetic diet. # PPX: SCDs and ambulation for DVT ppx, for which he is low risk. # Code status: FULL. # Emergency contact: Sister, disposition/overall plan, Will assess orthostatic hypotension personally today in room to fully ssess patient burden. Patient could have some neurally- mediated reflex syncope that may require tilt-table testing. Abd binder today, PT consult. May also need psychiatric consultation/telemedicine.
[2019-03-11] MEDS: Fludrocortisone 0.1 MG Tab PO SCH (14:27)
[2019-03-11] MEDS: ClonazePAM 0.5 MG Tab PO SCH (20:03)
[2019-03-12] MEDS: Midodrine 5 MG Tab PO SCH ×3 (06:34→17:10)
[2019-03-12] MEDS: Omeprazole 20 MG Cap.CR PO SCH (06:35)
[2019-03-12] MEDS: Fludrocortisone 0.1 MG Tab PO SCH (08:22)
[2019-03-12] MEDS: Sodium Chloride 1 GM Tab PO SCH ×3 (08:22→17:10)
[2019-03-12] MEDS: Calcium Citrate/Vitamin D3 315 MG-250 Unit Tab PO SCH ×2 (08:22→17:10)
[2019-03-12] MEDS: Escitalopram 10 MG Tab PO SCH (08:22)
[2019-03-12] MEDS: Rosuvastatin 5 MG Tab PO SCH (08:22)
[2019-03-12] MEDS: metFORMIN 500 MG Tab PO SCH ×2 (08:22→17:10)
[2019-03-12] MEDS: Insulin Aspart 100 Units/ML 3 ML Pen SUBCUT SCH ×6 (08:25→18:11)
[2019-03-12] MEDS: Insulin Detemir 100 Units/ML 3 ML Pen SUBCUT SCH (08:26)
[2019-03-12] MEDS: VICTOZA 0.6 MG/0.1 ML SUBCUT SCH (08:27)
--- NOTE | 2019-03-12 11:05 | PCM.PN ---
- General Info Date of Service: 03/12/19 Functional Status: Reports: Pain Controlled, Ambulating (eeds assistance) - Review of Systems General: Reports: No Symptoms HEENT: Reports: No Symptoms Pulmonary: Reports: No Symptoms Cardiovascular: Reports: Lightheadedness (seems to be impr) Gastrointestinal: Reports: No Symptoms Genitourinary: Reports: No Symptoms Musculoskeletal: Reports: No Symptoms Skin: Reports: No Symptoms Neurological: Reports: Gait Disturbance Psychiatric: Reports: Anxiety - Patient Data Vitals - Most Recent: Last Vital Signs Temp 98.2 F 03/12/19 06:41 Pulse 84 03/12/19 06:41 Resp 18 03/12/19 06:41 BP 128/78 03/12/19 06:41 Pulse Ox 95 03/12/19 06:41 Orthostatic Blood Pressure [ 104/67 Sitting] Orthostatic Blood Pressure [ 92/58 Standing] Orthostatic Blood Pressure [ 135/77 Supine] Weight - Most Recent: 268 lb 8 oz I&O - Last 24 Hours: Intake & Output 03/11/19 03/12/19 03/12/19 22:59 06:59 14:59 Intake Total 440 150 Output Total 500 1350 Balance -60 -1200 Lab Results Last 24 Hours: Laboratory Results - last 24 hr 03/11/19 03/11/19 03/11/19 Range/Units 07:48 12:10 17:09 POC Glucose 177 H 236 H 159 H (74-106) mg/dl 03/11/19 03/12/19 Range/Units 20:01 07:15 POC Glucose 126 H 133 H (74-106) mg/dl Med Orders - Current: Current Medications Acetaminophen (Tylenol) 650 mg PO Q6H PRN PRN Reason: Pain Last Admin: 03/08/19 03:19 Dose: 650 mg Calcium Citrate (Calcium Citrate + D) 1 tab PO BIDMEALS [facility] Last Admin: 03/12/19 08:22 Dose: 1 tab Clonazepam (Klonopin) 0.25 mg PO BEDTIME [facility] Last Admin: 03/11/19 20:03 Dose: 0.25 mg Escitalopram Oxalate (Lexapro) 20 mg PO DAILY [facility] Last Admin: 03/12/19 08:22 Dose: 20 mg Fludrocortisone Acetate (Florinef) 0.2 mg PO WITHBREAKFAST [facility] Last Admin: 03/12/19 08:22 Dose: 0.2 mg Insulin Aspart (Novolog) 0 unit SUBCUT TIDMEALS [facility]; Protocol Last Admin: 03/12/19 08:25 Dose: Not Given Insulin Aspart (Novolog) 10 unit SUBCUT TIDMEALS [facility] Last Admin: 03/12/19 08:25 Dose: 10 units Insulin Detemir (Levemir) 28 unit SUBCUT DAILY [facility] Last Admin: 03/12/19 08:26 Dose: 28 units Metformin HCl (Glucophage) 1,000 mg PO BIDMEALS [facility] Last Admin: 03/12/19 08:22 Dose: 1,000 mg Metformin HCl (Glucophage) 1,000 mg PO ONETIME [facility] Last Admin: 03/07/19 12:11 Dose: 1,000 mg Midodrine (Midodrine) 10 mg PO TIDAC [facility] Last Admin: 03/12/19 06:34 Dose: 10 mg Omeprazole (Omeprazole) 20 mg PO ACBREAKFAST [facility] Last Admin: 03/12/19 06:35 Dose: 20 mg Ondansetron HCl (Zofran Odt) 4 mg PO Q6H PRN PRN Reason: Nausea/Vomiting Last Admin: 03/09/19 07:08 Dose: 4 mg Victoza (Liraglutide ) 0.6 Mg/0.1 Ml 3 Ml Pen 1.8 each SUBCUT DAILY [facility] Last Admin: 03/12/19 08:27 Dose: 1.8 each Polyethylene Glycol (Miralax) 17 gm PO DAILY PRN PRN Reason: Constipation Rosuvastatin Calcium (Crestor) 2.5 mg PO DAILY [facility] Last Admin: 03/12/19 08:22 Dose: 2.5 mg Sodium Chloride (Sodium Chloride) 1 gm PO TIDMEALS [facility] Last Admin: 03/12/19 08:22 Dose: 1 gm Discontinued Medications Aspirin (Ecotrin) 325 mg PO DAILY [facility] Last Admin: 03/07/19 09:12 Dose: 325 mg Atropine Sulfate (Atropine 0.1 Mg/Ml) 0 mg IVPUSH ASDIRECTED PRN PRN Reason: Heart Clonazepam (Klonopin) 0.25 mg PO BID [facility] Last Admin: 03/06/19 20:09 Dose: 0.25 mg Epinephrine HCl (Epinephrine 1:10,000) 1 mg IVPUSH ASDIRECTED PRN PRN Reason: Heart Fludrocortisone Acetate (Florinef) 0.1 mg PO WITHBREAKFAST [facility] Last Admin: 03/10/19 08:36 Dose: 0.1 mg Fludrocortisone Acetate (Florinef) 0.1 mg PO ONETIME ONE Stop: 03/10/19 10:51 Last Admin: 03/10/19 11:48 Dose: 0.1 mg Sodium Chloride (Normal Saline) 1,000 mls @ 999 mls/hr IV .BOLUS ONE Stop: 03/05/19 13:00 Last Admin: 03/05/19 12:00 Dose: 999 mls/hr Sodium Chloride (Normal Saline) 1,000 mls @ 150 mls/hr IV ASDIRECTED [facility] Last Admin: 03/06/19 06:58 Dose: 150 mls/hr Sodium Chloride (Normal Saline) 1,000 mls @ 999 mls/hr IV .BOLUS ONE Stop: 03/06/19 12:51 Last Admin: 03/06/19 12:01 Dose: 999 mls/hr Sodium Chloride (Normal Saline) 1,000 mls @ 150 mls/hr IV ASDIRECTED [facility] Last Admin: 03/07/19 08:05 Dose: 150 mls/hr Insulin Aspart (Novolog) 8 unit SUBCUT TIDMEALS [facility] Last Admin: 03/09/19 08:17 Dose: 8 units Insulin Detemir (Levemir) 20 unit SUBCUT DAILY [facility] Last Admin: 03/07/19 09:15 Dose: 20 unit Insulin Detemir (Levemir) 25 unit SUBCUT DAILY [facility] Last Admin: 03/10/19 08:37 Dose: 25 units Lidocaine HCl (Xylocaine 2%) 0 mg IVPUSH ASDIRECTED PRN PRN Reason: Heart Losartan Potassium (Cozaar) 25 mg PO DAILY [facility] Last Admin: 03/06/19 10:02 Dose: Not Given Midodrine (Midodrine) 5 mg PO TIDAC [facility] Last Admin: 03/08/19 13:03 Dose: Not Given Nitroglycerin (Nitrostat) 0.4 mg SL ASDIRECTED PRN PRN Reason: Heart Sodium Chloride (Saline Flush) 10 ml FLUSH Q8HR PRN PRN Reason: keep vein open Sodium Chloride (Saline Flush) 10 ml FLUSH Q8HR PRN PRN Reason: keep vein open Last Admin: 03/06/19 13:10 Dose: 10 ml - Exam General: Alert, Oriented, Cooperative Neck: No JVD Lungs: Clear to Auscultation, Normal Respiratory Effort Cardiovascular: Regular Rate, Regular Rhythm GI/Abdominal Exam: No Distention Back Exam: No: CVA Tenderness (L), CVA Tenderness (R) Peripheral Pulses: 2+: Radial (L), Radial (R) Skin: Warm, Dry, Intact Neurological: Normal Tone, Sensation Intact Psy/Mental Status: No: Agitated - Problem List Review Problem List Initiated/Reviewed/Updated: Yes - My Orders Last 24 Hours: My Active Orders 03/11/19 11:44 Consult to Physical Therapy [PT Evaluation and Treatment] [CONS] Routine 03/11/19 12:15 Abdominal Binder [OM.PC] Routine - Plan Plan:: HPI summary: 58-year-old male with a history notable for DMT2, prior syncopal episodes, and anxiety, who was in his usual state of health until the date of admission when 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 Prior to this he states that he had been complaining of dizziness. He was not noted to have any seizure-like activity around the time of the fall. He reports that he has been eating and drinking well, as well as taking his insulin and blood sugars as usual. Sister does report that he has been eating a lot more sweets lately. He has had several episodes like this in the past in which he becomes dehydrated and has syncopal episodes. He also reports progressive symptoms of dizziness upon standing for the past several weeks to months. He was down only for a few moments with this episode and responsive thereafter. The fall was witnessed and he was brought into the emergency department by EMS. Of note, last month, he also had cardiac workup of echocardiogram and cardiac catheterization, which were normal. ED course: In the emergency department, he denied any complaints other than dizziness and exam, including neurological, cardiovascular, and pulmonary exams were unremarkable. He had significant orthostatic hypotension from supine to standing. Labs were notable for elevated creatinine at 1.74, troponin of 0.08, and blood glucose of 195. Hospital course and overall plan: Pt was initially admitted into observation status for syncope, orthostatic hypotension, and elevated troponin. Troponins were trended and subsequently normalized and no concerns noted on telemetry. With NS boluses and infusion, he was volume resuscitated and reached volume neutral status with resolution of LIV. His losartan was discontinued. He remains orthostatic with significant symptoms. A1c is 9.7%. Due to ongoing significantly symptomatic othostasis, suboptimal control of DMT2 , and extremely high risk for readmission given multiple prior hospital admissions, limited cognitive function and baseline medical insight, patient was transferred to inpatient status for further monitoring and management. Pt was started on midodrine 5mg TID. He continued with significant orthostatic hypotension. Midodrine was increased to 10 mg tid. Florinef 0.1 mg and NaCl 1 gm tid with meals was added yesterday. He continues with the symptomatic orthostatic hypotension. He continues with: - ARNAV stockings - PO fluids encouraged - Orthostatic VS BID - with resolution of LIV, metformin 1000mg BID was restarted - Levemir insulin (Lantus at home) was increased to 25un (from 20un) on admission. - NovoLog insulin increased to 10un with meals today in addition to medium dose sliding scale TID with meals. - Consider PT evaluation in the future if debility noted following improvement in orthostasis Hospitalization problems: # Syncopal episode: No recurrence # Orthostatic hypotension: some improvement upon ambulation today, Suspect this may be related to diabetic neuropathy. Continue midodrine 10 mg tid, and max fludrocortisone to 0.2 mg po daily as well as NaCl 1 gm tid with meals. # DMT2, uncontrolled, with polyneuropathy: A1c 9.7%. Continue liraglutide 1.8 mg daily. Metformin 1000mg BID was restarted. Recent increase Levemir to 28 units. NovoLog was increased to 10 units on 03/09, medium dose sliding scale continues TID with meals. Monitor BGs QID and will increase insulin based on control. # NSTEMI, type 2: Troponin peak 0.08, then normalized. # Hx HTN: Losartan discontinued. # Acute kidney injury, resolved: Cr peak 1.74, then normalized # Anxiety: Stable. Continue escitalopram and clonzepam 0.25mg at bedtime. AM clonazepam dose discontinued given possible contribution to dizziness and orthostasis. Chronic, stable conditions: # HLD: Continue statin. ASA discontinued given lack of benefit for primary prevention. # Obesity: Hold phentermine while in hospital. # GERD: Controlled. Continue PPI; consider de-escalation to H2B in future. # Hepatic steatosis # Constipation: Controlled. Continue PEG. # Hx diabetic foot infections and subsequent progressive amputation of left foot # Cognitive impairment Hospitalization details: # FEN: Saline lock IV. Electrolytes normal. Diabetic diet. # PPX: SCDs and ambulation for DVT ppx, for which he is low risk. # Code status: FULL. # Emergency contact: Sister, disposition/overall plan, assess postprandial orthostatic VS today. Patient could have some neurally-mediated reflex syncope that may require tilt-table testing. Cont with jesús, PT consult. I do not think patient is a good swing- bed candidate, spoke with licensed clinical social worker today regarding long-term plan due to multiple admissions and lack of resources and inability to appropriately monitor his symptoms. social service will c/s with [facility] services with possible long-term care placement.
[2019-03-12] MEDS: ClonazePAM 0.5 MG Tab PO SCH (21:09)
[2019-03-13] MEDS: Omeprazole 20 MG Cap.CR PO SCH (06:29)
[2019-03-13] MEDS: Midodrine 5 MG Tab PO SCH ×3 (06:29→17:34)
[2019-03-13] MEDS: Fludrocortisone 0.1 MG Tab PO SCH (08:14)
[2019-03-13] MEDS: metFORMIN 500 MG Tab PO SCH ×2 (08:14→17:34)
[2019-03-13] MEDS: Calcium Citrate/Vitamin D3 315 MG-250 Unit Tab PO SCH ×2 (08:14→17:35)
[2019-03-13] MEDS: Insulin Detemir 100 Units/ML 3 ML Pen SUBCUT SCH (08:14)
[2019-03-13] MEDS: Rosuvastatin 5 MG Tab PO SCH (08:14)
[2019-03-13] MEDS: Sodium Chloride 1 GM Tab PO SCH ×3 (08:14→17:35)
[2019-03-13] MEDS: Escitalopram 10 MG Tab PO SCH (08:14)
[2019-03-13] MEDS: VICTOZA 0.6 MG/0.1 ML SUBCUT SCH (08:15)
[2019-03-13] MEDS: Insulin Aspart 100 Units/ML 3 ML Pen SUBCUT SCH ×6 (08:16→17:37)
[2019-03-13 09:49] LABS: ANION GAP 16.1 mmol/L (5-15); CHLORIDE,CL 99 mmol/L (98-115); SODIUM,NA 138 mmol/L (136-145)
--- NOTE | 2019-03-13 11:26 | PCM.PN ---
- General Info Date of Service: 03/13/19 Functional Status: Reports: Pain Controlled, Tolerating Diet, Ambulating - Review of Systems General: Reports: No Symptoms HEENT: Reports: No Symptoms Pulmonary: Reports: No Symptoms Cardiovascular: Reports: Lightheadedness Gastrointestinal: Reports: No Symptoms Genitourinary: Reports: No Symptoms Musculoskeletal: Reports: No Symptoms Skin: Reports: No Symptoms Neurological: Reports: Dizziness, Difficulty Walking, Gait Disturbance. Denies : Confusion, Headache, Numbness, Paresthesia, Syncope, Tingling, Tremors Psychiatric: Reports: Mood Lability. Denies: Agitation - Patient Data Vitals - Most Recent: Last Vital Signs Temp 98.3 F 03/13/19 07:00 Pulse 96 03/13/19 07:00 Resp 20 03/13/19 07:00 BP 144/76 H 03/13/19 07:00 Pulse Ox 94 L 03/13/19 07:25 Orthostatic Blood Pressure [ 126/71 Sitting] Orthostatic Blood Pressure [ 92/57 Standing] Orthostatic Blood Pressure [ 144/76 Supine] Weight - Most Recent: 268 lb 8 oz I&O - Last 24 Hours: Intake & Output 03/12/19 03/13/19 03/13/19 22:59 06:59 14:59 Intake Total 887 450 Output Total 900 750 Balance -13 -300 Lab Results Last 24 Hours: Laboratory Results - last 24 hr 03/12/19 03/12/19 03/12/19 Range/Units 11:33 17:02 21:08 Sodium (136-145) mmol/L Potassium (3.3-5.3) mmol/L Chloride (98-115) mmol/L Carbon Dioxide (21.0-32.0) mmol/L Anion Gap (5-15) mmol/L BUN (6-25) mg/dL Creatinine (0.51-1.17) mg/dL Est Cr Clr Drug Dosing mL/min Estimated GFR (MDRD) mL/min Glucose (75 - 99) mg/dL POC Glucose 212 H 134 H 85 (74-106) mg/dl Calcium (8.7-10.3) mg/dL Total Bilirubin (0.2-1.0) mg/dL AST (15-37) U/L ALT (12-78) U/L Alkaline Phosphatase (46-116) IU/L Total Protein (6.4-8.2) g/dL Albumin (3.00-4.80) g/dL 03/13/19 03/13/19 Range/Units 06:29 09:10 Sodium 138 (136-145) mmol/L Potassium 4.0 (3.3-5.3) mmol/L Chloride 99 (98-115) mmol/L Carbon Dioxide 26.9 (21.0-32.0) mmol/L Anion Gap 16.1 H (5-15) mmol/L BUN 17 (6-25) mg/dL Creatinine 0.77 (0.51-1.17) mg/dL Est Cr Clr Drug Dosing 118.18 mL/min Estimated GFR (MDRD) > 60 mL/min Glucose 219 H (75 - 99) mg/dL POC Glucose 167 H (74-106) mg/dl Calcium 8.5 L (8.7-10.3) mg/dL Total Bilirubin 0.9 (0.2-1.0) mg/dL AST 16 (15-37) U/L ALT 17 (12-78) U/L Alkaline Phosphatase 124 H (46-116) IU/L Total Protein 7.7 (6.4-8.2) g/dL Albumin 3.40 (3.00-4.80) g/dL Med Orders - Current: Current Medications Acetaminophen (Tylenol) 650 mg PO Q6H PRN PRN Reason: Pain Last Admin: 03/08/19 03:19 Dose: 650 mg Calcium Citrate (Calcium Citrate + D) 1 tab PO BIDMEALS [facility] Last Admin: 03/13/19 08:14 Dose: 1 tab Clonazepam (Klonopin) 0.25 mg PO BEDTIME [facility] Last Admin: 03/12/19 21:09 Dose: 0.25 mg Escitalopram Oxalate (Lexapro) 20 mg PO DAILY [facility] Last Admin: 03/13/19 08:14 Dose: 20 mg Fludrocortisone Acetate (Florinef) 0.2 mg PO WITHBREAKFAST [facility] Last Admin: 03/13/19 08:14 Dose: 0.2 mg Insulin Aspart (Novolog) 0 unit SUBCUT TIDMEALS [facility]; Protocol Last Admin: 03/13/19 08:16 Dose: 2 unit Insulin Aspart (Novolog) 10 unit SUBCUT TIDMEALS [facility] Last Admin: 03/13/19 08:16 Dose: 10 units Insulin Detemir (Levemir) 28 unit SUBCUT DAILY [facility] Last Admin: 03/13/19 08:14 Dose: 28 units Metformin HCl (Glucophage) 1,000 mg PO BIDMEALS [facility] Last Admin: 03/13/19 08:14 Dose: 1,000 mg Midodrine (Midodrine) 10 mg PO TIDAC [facility] Last Admin: 03/13/19 06:29 Dose: 10 mg Omeprazole (Omeprazole) 20 mg PO ACBREAKFAST [facility] Last Admin: 03/13/19 06:29 Dose: 20 mg Ondansetron HCl (Zofran Odt) 4 mg PO Q6H PRN PRN Reason: Nausea/Vomiting Last Admin: 03/09/19 07:08 Dose: 4 mg Victoza (Liraglutide ) 0.6 Mg/0.1 Ml 3 Ml Pen 1.8 each SUBCUT DAILY [facility] Last Admin: 03/13/19 08:15 Dose: 1.8 each Polyethylene Glycol (Miralax) 17 gm PO DAILY PRN PRN Reason: Constipation Rosuvastatin Calcium (Crestor) 2.5 mg PO DAILY [facility] Last Admin: 03/13/19 08:14 Dose: 2.5 mg Sodium Chloride (Sodium Chloride) 1 gm PO TIDMEALS [facility] Last Admin: 03/13/19 08:14 Dose: 1 gm Discontinued Medications Aspirin (Ecotrin) 325 mg PO DAILY [facility] Last Admin: 03/07/19 09:12 Dose: 325 mg Atropine Sulfate (Atropine 0.1 Mg/Ml) 0 mg IVPUSH ASDIRECTED PRN PRN Reason: Heart Clonazepam (Klonopin) 0.25 mg PO BID [facility] Last Admin: 03/06/19 20:09 Dose: 0.25 mg Epinephrine HCl (Epinephrine 1:10,000) 1 mg IVPUSH ASDIRECTED PRN PRN Reason: Heart Fludrocortisone Acetate (Florinef) 0.1 mg PO WITHBREAKFAST [facility] Last Admin: 03/10/19 08:36 Dose: 0.1 mg Fludrocortisone Acetate (Florinef) 0.1 mg PO ONETIME ONE Stop: 03/10/19 10:51 Last Admin: 03/10/19 11:48 Dose: 0.1 mg Sodium Chloride (Normal Saline) 1,000 mls @ 999 mls/hr IV .BOLUS ONE Stop: 03/05/19 13:00 Last Admin: 03/05/19 12:00 Dose: 999 mls/hr Sodium Chloride (Normal Saline) 1,000 mls @ 150 mls/hr IV ASDIRECTED [facility] Last Admin: 03/06/19 06:58 Dose: 150 mls/hr Sodium Chloride (Normal Saline) 1,000 mls @ 999 mls/hr IV .BOLUS ONE Stop: 03/06/19 12:51 Last Admin: 03/06/19 12:01 Dose: 999 mls/hr Sodium Chloride (Normal Saline) 1,000 mls @ 150 mls/hr IV ASDIRECTED [facility] Last Admin: 03/07/19 08:05 Dose: 150 mls/hr Insulin Aspart (Novolog) 8 unit SUBCUT TIDMEALS [facility] Last Admin: 03/09/19 08:17 Dose: 8 units Insulin Detemir (Levemir) 20 unit SUBCUT DAILY [facility] Last Admin: 03/07/19 09:15 Dose: 20 unit Insulin Detemir (Levemir) 25 unit SUBCUT DAILY [facility] Last Admin: 03/10/19 08:37 Dose: 25 units Lidocaine HCl (Xylocaine 2%) 0 mg IVPUSH ASDIRECTED PRN PRN Reason: Heart Losartan Potassium (Cozaar) 25 mg PO DAILY [facility] Last Admin: 03/06/19 10:02 Dose: Not Given Metformin HCl (Glucophage) 1,000 mg PO ONETIME [facility] Last Admin: 03/07/19 12:11 Dose: 1,000 mg Midodrine (Midodrine) 5 mg PO TIDAC [facility] Last Admin: 03/08/19 13:03 Dose: Not Given Nitroglycerin (Nitrostat) 0.4 mg SL ASDIRECTED PRN PRN Reason: Heart Sodium Chloride (Saline Flush) 10 ml FLUSH Q8HR PRN PRN Reason: keep vein open Sodium Chloride (Saline Flush) 10 ml FLUSH Q8HR PRN PRN Reason: keep vein open Last Admin: 03/06/19 13:10 Dose: 10 ml - Exam Quality Assessment: No: Supplemental Oxygen General: Alert, Oriented, Cooperative, No Acute Distress Neck: Supple Lungs: Clear to Auscultation, Normal Respiratory Effort Cardiovascular: Regular Rate, Regular Rhythm GI/Abdominal Exam: Normal Bowel Sounds, Soft, Non-Tender, No Organomegaly, No Distention, No Abnormal Bruit, No Mass, Pelvis Stable Extremities: No Pedal Edema Peripheral Pulses: 2+: Radial (L), Radial (R) Neurological: No New Focal Deficit, Cranial Nerves Intact Psy/Mental Status: Alert, Normal Affect, Normal Mood - Problem List Review Problem List Initiated/Reviewed/Updated: Yes - My Orders Last 24 Hours: My Active Orders 03/12/19 13:26 Communication Order [RC] DAILY - Plan Plan:: HPI summary: 58-year-old male with a history notable for DMT2, prior syncopal episodes, and anxiety, who was in his usual state of health until the date of admission when 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 Prior to this he states that he had been complaining of dizziness. He was not noted to have any seizure-like activity around the time of the fall. He reports that he has been eating and drinking well, as well as taking his insulin and blood sugars as usual. Sister does report that he has been eating a lot more sweets lately. He has had several episodes like this in the past in which he becomes dehydrated and has syncopal episodes. He also reports progressive symptoms of dizziness upon standing for the past several weeks to months. He was down only for a few moments with this episode and responsive thereafter. The fall was witnessed and he was brought into the emergency department by EMS. Of note, last month, he also had cardiac workup of echocardiogram and cardiac catheterization, which were normal. ED course: In the emergency department, he denied any complaints other than dizziness and exam, including neurological, cardiovascular, and pulmonary exams were unremarkable. He had significant orthostatic hypotension from supine to standing. Labs were notable for elevated creatinine at 1.74, troponin of 0.08, and blood glucose of 195. Hospital course and overall plan: Pt was initially admitted into observation status for syncope, orthostatic hypotension, and elevated troponin. Troponins were trended and subsequently normalized and no concerns noted on telemetry. With NS boluses and infusion, he was volume resuscitated and reached volume neutral status with resolution of LIV. His losartan was discontinued. He remains orthostatic with significant symptoms. A1c is 9.7%. Due to ongoing significantly symptomatic othostasis, suboptimal control of DMT2 , and extremely high risk for readmission given multiple prior hospital admissions, limited cognitive function and baseline medical insight, patient was transferred to inpatient status for further monitoring and management. Pt was started on midodrine 5mg TID. He continued with significant orthostatic hypotension. Midodrine was increased to 10 mg tid. Florinef 0.1 mg and NaCl 1 gm tid with meals was added yesterday. He continues with the symptomatic orthostatic hypotension. He continues with: - ARNAV stockings - PO fluids encouraged - Orthostatic VS BID - with resolution of LIV, metformin 1000mg BID was restarted - Levemir insulin (Lantus at home) was increased to 25un (from 20un) on admission. - NovoLog insulin increased to 10un with meals today in addition to medium dose sliding scale TID with meals. - Consider PT evaluation in the future if debility noted following improvement in orthostasis Hospitalization problems: # Syncopal episode: No recurrence # Orthostatic hypotension: some improvement upon ambulation today, Suspect this may be related to diabetic neuropathy. Continue midodrine 10 mg tid, and max fludrocortisone to 0.2 mg po daily as well as NaCl 1 gm tid with meals. # DMT2, uncontrolled, with polyneuropathy: A1c 9.7%. Continue liraglutide 1.8 mg daily. Metformin 1000mg BID was restarted. Recent increase Levemir to 28 units. NovoLog was increased to 10 units on 03/09, medium dose sliding scale continues TID with meals. Monitor BGs QID and will increase insulin based on control. # NSTEMI, type 2: Troponin peak 0.08, then normalized. # Hx HTN: Losartan discontinued. # Acute kidney injury, resolved: Cr peak 1.74, then normalized # Anxiety: Stable. Continue escitalopram and clonzepam 0.25mg at bedtime. AM clonazepam dose discontinued given possible contribution to dizziness and orthostasis. Chronic, stable conditions: # HLD: Continue statin. ASA discontinued given lack of benefit for primary prevention. # Obesity: Hold phentermine while in hospital. # GERD: Controlled. Continue PPI; consider de-escalation to H2B in future. # Hepatic steatosis # Constipation: Controlled. Continue PEG. # Hx diabetic foot infections and subsequent progressive amputation of left foot # Cognitive impairment Hospitalization details: # FEN: Saline lock IV. Electrolytes normal. Diabetic diet. # PPX: SCDs and ambulation for DVT ppx, for which he is low risk. # Code status: FULL. # Emergency contact: Sister, Recent psychology recommendations --That patient continue with individual psychotherapy to address symptoms, develop coping strategies, and improve functioning across settings. --If symptoms fail to improve or worsen, it is recommended the patient seek a medication management consultation to determine the usefulness, cost/benefits of a psychopharmacological intervention for his current constellation of symptoms. --Close follow-up with PCP. disposition/overall plan, Neurology consultation-- Patient could have some neurally-mediated reflex syncope that may require tilt- table testing. Cont with jesús, PT consult. I do not think patient is a good swing-bed candidate, spoke with web content & social media manager today regarding long-term plan due to multiple admissions and lack of resources and inability to appropriately monitor his symptoms. Recommend long-term care placement.
--- NOTE | 2019-03-13 15:21 | MR ---
[id number] MR/MRI Brain and Stem WO IV EXAM: MRI Brain and Stem WO IV CLINICAL DATA: ORTHOSTATIC HYPOTENSION COMPARISON: CORRELATION IS MADE WITH THE CAT SCAN OF MARCH 05, 2019. FINDINGS: There is no mass or mass effect. There is no hemorrhage or hydrocephalus. There are no extra-axial fluid collections. There are no sites of signal abnormality. No abnormalities of rivera matter white matter differentiation are seen. No anatomic abnormalities are identified either. IMPRESSION: NO ACUTE PROCESS. Abundio Garcia MD 03/13/19 [id number] Thank you for allowing us to participate in the care of your patient.
[2019-03-13] MEDS: ClonazePAM 0.5 MG Tab PO SCH (21:19)
[2019-03-14] MEDS: Midodrine 5 MG Tab PO SCH ×3 (06:31→16:54)
[2019-03-14] MEDS: Omeprazole 20 MG Cap.CR PO SCH (06:31)
[2019-03-14] MEDS: Insulin Aspart 100 Units/ML 3 ML Pen SUBCUT SCH ×6 (07:43→17:55)
[2019-03-14] MEDS: Rosuvastatin 5 MG Tab PO SCH (08:02)
[2019-03-14] MEDS: metFORMIN 500 MG Tab PO SCH ×2 (08:02→17:55)
[2019-03-14] MEDS: Fludrocortisone 0.1 MG Tab PO SCH (08:02)
[2019-03-14] MEDS: Escitalopram 10 MG Tab PO SCH (08:02)
[2019-03-14] MEDS: Calcium Citrate/Vitamin D3 315 MG-250 Unit Tab PO SCH ×2 (08:03→17:55)
[2019-03-14] MEDS: Sodium Chloride 1 GM Tab PO SCH ×3 (08:03→17:55)
[2019-03-14] MEDS: VICTOZA 0.6 MG/0.1 ML SUBCUT SCH (08:05)
[2019-03-14] MEDS: Insulin Detemir 100 Units/ML 3 ML Pen SUBCUT SCH (08:05)
--- NOTE | 2019-03-14 11:05 | PCM.PN ---
- General Info Date of Service: 03/14/19 - Review of Systems General: Reports: No Symptoms HEENT: Reports: No Symptoms Pulmonary: Reports: No Symptoms Cardiovascular: Reports: Orthopnea, Lightheadedness. Denies: Chest Pain, Palpitations, Dyspnea on Exertion Gastrointestinal: Reports: No Symptoms Genitourinary: Reports: No Symptoms Musculoskeletal: Reports: No Symptoms Skin: Denies: Dryness Neurological: Reports: Dizziness, Pre-Existing Deficit, Difficulty Walking, Gait Disturbance. Denies: Confusion, Headache, Seizure, Syncope, Tingling Psychiatric: Denies: Confusion, Anxiety, Hallucinations - Patient Data Vitals - Most Recent: Last Vital Signs Temp 98.2 F 03/14/19 06:47 Pulse 99 03/14/19 06:47 Resp 20 03/14/19 06:47 BP 130/74 03/14/19 06:47 Pulse Ox 96 03/14/19 06:47 Orthostatic Blood Pressure [ 114/61 Sitting] Orthostatic Blood Pressure [ 82/46 Standing] Orthostatic Blood Pressure [ 129/70 Supine] Weight - Most Recent: 268 lb 8 oz I&O - Last 24 Hours: Intake & Output 03/13/19 03/14/19 03/14/19 22:59 06:59 14:59 Intake Total 500 250 Output Total 300 1100 Balance 200 -850 Lab Results Last 24 Hours: Laboratory Results - last 24 hr 03/13/19 03/13/19 03/13/19 Range/Units 11:23 17:32 21:15 POC Glucose 178 H 182 H 100 (74-106) mg/dl 03/14/19 Range/Units 07:23 POC Glucose 145 H (74-106) mg/dl Med Orders - Current: Current Medications Acetaminophen (Tylenol) 650 mg PO Q6H PRN PRN Reason: Pain Last Admin: 03/08/19 03:19 Dose: 650 mg Calcium Citrate (Calcium Citrate + D) 1 tab PO BIDMEALS [facility] Last Admin: 03/14/19 08:03 Dose: 1 tab Clonazepam (Klonopin) 0.25 mg PO BEDTIME [facility] Last Admin: 03/13/19 21:19 Dose: 0.25 mg Escitalopram Oxalate (Lexapro) 20 mg PO DAILY [facility] Last Admin: 03/14/19 08:02 Dose: 20 mg Fludrocortisone Acetate (Florinef) 0.2 mg PO WITHBREAKFAST [facility] Last Admin: 03/14/19 08:02 Dose: 0.2 mg Insulin Aspart (Novolog) 0 unit SUBCUT TIDMEALS [facility]; Protocol Last Admin: 03/14/19 07:43 Dose: Not Given Insulin Aspart (Novolog) 10 unit SUBCUT TIDMEALS [facility] Last Admin: 03/14/19 08:06 Dose: 10 units Insulin Detemir (Levemir) 28 unit SUBCUT DAILY [facility] Last Admin: 03/14/19 08:05 Dose: 28 units Metformin HCl (Glucophage) 1,000 mg PO BIDMEALS [facility] Last Admin: 03/14/19 08:02 Dose: 1,000 mg Midodrine (Midodrine) 10 mg PO TIDAC [facility] Last Admin: 03/14/19 06:31 Dose: 10 mg Omeprazole (Omeprazole) 20 mg PO ACBREAKFAST [facility] Last Admin: 03/14/19 06:31 Dose: 20 mg Ondansetron HCl (Zofran Odt) 4 mg PO Q6H PRN PRN Reason: Nausea/Vomiting Last Admin: 03/09/19 07:08 Dose: 4 mg Victoza (Liraglutide ) 0.6 Mg/0.1 Ml 3 Ml Pen 1.8 each SUBCUT DAILY [facility] Last Admin: 03/14/19 08:05 Dose: 1.8 each Polyethylene Glycol (Miralax) 17 gm PO DAILY PRN PRN Reason: Constipation Rosuvastatin Calcium (Crestor) 2.5 mg PO DAILY [facility] Last Admin: 03/14/19 08:02 Dose: 2.5 mg Sodium Chloride (Sodium Chloride) 1 gm PO TIDMEALS [facility] Last Admin: 03/14/19 08:03 Dose: 1 gm Discontinued Medications Aspirin (Ecotrin) 325 mg PO DAILY [facility] Last Admin: 03/07/19 09:12 Dose: 325 mg Atropine Sulfate (Atropine 0.1 Mg/Ml) 0 mg IVPUSH ASDIRECTED PRN PRN Reason: Heart Clonazepam (Klonopin) 0.25 mg PO BID [facility] Last Admin: 03/06/19 20:09 Dose: 0.25 mg Epinephrine HCl (Epinephrine 1:10,000) 1 mg IVPUSH ASDIRECTED PRN PRN Reason: Heart Fludrocortisone Acetate (Florinef) 0.1 mg PO WITHBREAKFAST [facility] Last Admin: 03/10/19 08:36 Dose: 0.1 mg Fludrocortisone Acetate (Florinef) 0.1 mg PO ONETIME ONE Stop: 03/10/19 10:51 Last Admin: 03/10/19 11:48 Dose: 0.1 mg Sodium Chloride (Normal Saline) 1,000 mls @ 999 mls/hr IV .BOLUS ONE Stop: 03/05/19 13:00 Last Admin: 03/05/19 12:00 Dose: 999 mls/hr Sodium Chloride (Normal Saline) 1,000 mls @ 150 mls/hr IV ASDIRECTED [facility] Last Admin: 03/06/19 06:58 Dose: 150 mls/hr Sodium Chloride (Normal Saline) 1,000 mls @ 999 mls/hr IV .BOLUS ONE Stop: 03/06/19 12:51 Last Admin: 03/06/19 12:01 Dose: 999 mls/hr Sodium Chloride (Normal Saline) 1,000 mls @ 150 mls/hr IV ASDIRECTED [facility] Last Admin: 03/07/19 08:05 Dose: 150 mls/hr Insulin Aspart (Novolog) 8 unit SUBCUT TIDMEALS [facility] Last Admin: 03/09/19 08:17 Dose: 8 units Insulin Detemir (Levemir) 20 unit SUBCUT DAILY [facility] Last Admin: 03/07/19 09:15 Dose: 20 unit Insulin Detemir (Levemir) 25 unit SUBCUT DAILY [facility] Last Admin: 03/10/19 08:37 Dose: 25 units Lidocaine HCl (Xylocaine 2%) 0 mg IVPUSH ASDIRECTED PRN PRN Reason: Heart Losartan Potassium (Cozaar) 25 mg PO DAILY [facility] Last Admin: 03/06/19 10:02 Dose: Not Given Metformin HCl (Glucophage) 1,000 mg PO ONETIME [facility] Last Admin: 03/07/19 12:11 Dose: 1,000 mg Midodrine (Midodrine) 5 mg PO TIDAC [facility] Last Admin: 03/08/19 13:03 Dose: Not Given Nitroglycerin (Nitrostat) 0.4 mg SL ASDIRECTED PRN PRN Reason: Heart Sodium Chloride (Saline Flush) 10 ml FLUSH Q8HR PRN PRN Reason: keep vein open Sodium Chloride (Saline Flush) 10 ml FLUSH Q8HR PRN PRN Reason: keep vein open Last Admin: 03/06/19 13:10 Dose: 10 ml - Exam Quality Assessment: No: Supplemental Oxygen General: Alert, Oriented, Cooperative, No Acute Distress Neck: No JVD Lungs: Clear to Auscultation, Normal Respiratory Effort Cardiovascular: Regular Rate, Regular Rhythm GI/Abdominal Exam: Normal Bowel Sounds, Soft (Male) Exam: Deferred Extremities: No Pedal Edema Peripheral Pulses: 2+: Radial (L), Radial (R) Skin: Warm, Dry, Intact Neurological: Normal Speech, Normal Tone, Sensation Intact, Other (ambulatory with 4WW, unstable gait without walker) Psy/Mental Status: Alert, Normal Affect, Normal Mood - Problem List Review Problem List Initiated/Reviewed/Updated: Yes - Plan Plan:: HPI summary: 58-year-old male with a history notable for DMT2, prior syncopal episodes, and anxiety, who was in his usual state of health until the date of admission when 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 Prior to this he states that he had been complaining of dizziness. He was not noted to have any seizure-like activity around the time of the fall. He reports that he has been eating and drinking well, as well as taking his insulin and blood sugars as usual. Sister does report that he has been eating a lot more sweets lately. He has had several episodes like this in the past in which he becomes dehydrated and has syncopal episodes. He also reports progressive symptoms of dizziness upon standing for the past several weeks to months. He was down only for a few moments with this episode and responsive thereafter. The fall was witnessed and he was brought into the emergency department by EMS. Of note, last month, he also had cardiac workup of echocardiogram and cardiac catheterization, which were normal. ED course: In the emergency department, he denied any complaints other than dizziness and exam, including neurological, cardiovascular, and pulmonary exams were unremarkable. He had significant orthostatic hypotension from supine to standing. Labs were notable for elevated creatinine at 1.74, troponin of 0.08, and blood glucose of 195. Hospital course and overall plan: Pt was initially admitted into observation status for syncope, orthostatic hypotension, and elevated troponin. Troponins were trended and subsequently normalized and no concerns noted on telemetry. With NS boluses and infusion, he was volume resuscitated and reached volume neutral status with resolution of LIV. His losartan was discontinued. He remains orthostatic with significant symptoms. A1c is 9.7%. Due to ongoing significantly symptomatic othostasis, suboptimal control of DMT2 , and extremely high risk for readmission given multiple prior hospital admissions, limited cognitive function and baseline medical insight, patient was transferred to inpatient status for further monitoring and management. Pt was started on midodrine 5mg TID. He continued with significant orthostatic hypotension. Midodrine was increased to 10 mg tid. Florinef 0.1 mg and NaCl 1 gm tid with meals was added yesterday. He continues with the symptomatic orthostatic hypotension. He continues with: - ARNAV stockings - PO fluids encouraged - Orthostatic VS BID - with resolution of LIV, metformin 1000mg BID was restarted - Levemir insulin (Lantus at home) was increased to 25un (from 20un) on admission. - NovoLog insulin increased to 10un with meals today in addition to medium dose sliding scale TID with meals. - Consider PT evaluation in the future if debility noted following improvement in orthostasis Hospitalization problems: # autonomic dysfunction # Syncopal episode: neurally-mediated reflex syncope, No recurrence # Orthostatic hypotension: some improvement in symptoms today. however significant orthostatic hypotension with 45 point decreased SBP with some Compensatory HR increased however symptomatic. Continue midodrine 10 mg tid, and max fludrocortisone to 0.2 mg po daily as well as NaCl 1 gm tid with meals. # DMT2, uncontrolled, with polyneuropathy: A1c 9.7%. Continue liraglutide 1.8 mg daily. Metformin 1000mg BID was restarted. Recent increase Levemir to 28 units. NovoLog was increased to 10 units on 03/09, medium dose sliding scale continues TID with meals. Monitor BGs QID and will increase insulin based on control. # NSTEMI, type 2: Troponin peak 0.08, then normalized. # Hx HTN: Losartan discontinued. # Acute kidney injury, resolved: Cr peak 1.74, then normalized # Anxiety: Stable. Continue escitalopram and clonzepam 0.25mg at bedtime. AM clonazepam dose discontinued given possible contribution to dizziness and orthostasis. Chronic, stable conditions: # HLD: Continue statin. ASA discontinued given lack of benefit for primary prevention. # Obesity: Hold phentermine while in hospital. # GERD: Controlled. Continue PPI; consider de-escalation to H2B in future. # Hepatic steatosis # Constipation: Controlled. Continue PEG. # Hx diabetic foot infections and subsequent progressive amputation of left foot # Cognitive impairment Hospitalization details: # FEN: Saline lock IV. Electrolytes normal. Diabetic diet. # PPX: SCDs and ambulation for DVT ppx, for which he is low risk. # Code status: FULL. # Emergency contact: Sister, Recent psychology recommendations --That patient continue with individual psychotherapy to address symptoms, develop coping strategies, and improve functioning across settings. --If symptoms fail to improve or worsen, it is recommended the patient seek a medication management consultation to determine the usefulness, cost/benefits of a psychopharmacological intervention for his current constellation of symptoms. --Close follow-up with PCP. consultations --Spoke with both neurology and cardiology [facility] call. Neurology felt patient possibly could benefit from motion studies commended cardiology referral.Spoke with cardiology [facility] call symptoms consistent with autonomic dysfunction and agrees with current treatment with no other recommendations other than possible ondocrinology as outpatient. disposition/overall plan, --continue inpatient for now --Long-term care placement early next week --May need level II psyche referral, --family to apply for disability --SNF here at [facility] not recommended.
[2019-03-14] MEDS: ClonazePAM 0.5 MG Tab PO SCH (21:27)
[2019-03-15] MEDS: Midodrine 5 MG Tab PO SCH ×3 (06:45→17:36)
[2019-03-15] MEDS: Omeprazole 20 MG Cap.CR PO SCH (06:45)
[2019-03-15 07:48] LABS: ANION GAP 11.6 mmol/L (5-15); CHLORIDE,CL 103 mmol/L (98-115); SODIUM,NA 141 mmol/L (136-145)
[2019-03-15] MEDS: Calcium Citrate/Vitamin D3 315 MG-250 Unit Tab PO SCH ×2 (07:58→17:36)
[2019-03-15] MEDS: metFORMIN 500 MG Tab PO SCH ×2 (07:59→17:36)
[2019-03-15] MEDS: Fludrocortisone 0.1 MG Tab PO SCH (07:59)
[2019-03-15] MEDS: Insulin Aspart 100 Units/ML 3 ML Pen SUBCUT SCH ×6 (07:59→18:09)
[2019-03-15] MEDS: VICTOZA 0.6 MG/0.1 ML SUBCUT SCH (08:00)
[2019-03-15] MEDS: Sodium Chloride 1 GM Tab PO SCH ×3 (08:00→17:37)
[2019-03-15] MEDS: Insulin Detemir 100 Units/ML 3 ML Pen SUBCUT SCH (08:01)
[2019-03-15] MEDS: Escitalopram 10 MG Tab PO SCH (08:02)
[2019-03-15] MEDS: Rosuvastatin 5 MG Tab PO SCH (08:02)
--- NOTE | 2019-03-15 11:44 | PCM.PN ---
- General Info Date of Service: 03/15/19 Subjective Update: Continues to have lightheadedness with standing, but feels it has been improving , most notably in the past few day. Tolerating po intake well. Ambulating well. No new concerns. No nursing concerns. - Patient Data Vitals - Most Recent: Last Vital Signs Temp 36.7 C 03/15/19 06:53 Pulse 82 03/15/19 06:53 Resp 16 03/15/19 06:53 BP 123/73 03/15/19 06:53 Pulse Ox 95 03/15/19 06:53 Orthostatic Blood Pressure [ 110/67 Sitting] Orthostatic Blood Pressure [ 97/57 Standing] Orthostatic Blood Pressure [ 126/73 Supine] Weight - Most Recent: 121.79 kg I&O - Last 24 Hours: Intake & Output 03/14/19 03/15/19 03/15/19 22:59 06:59 14:59 Intake Total 820 500 Output Total 1150 950 Balance -330 -450 Lab Results Last 24 Hours: Laboratory Results - last 24 hr 03/14/19 03/14/19 03/14/19 Range/Units 12:03 17:53 21:05 Sodium (136-145) mmol/L Potassium (3.3-5.3) mmol/L Chloride (98-115) mmol/L Carbon Dioxide (21.0-32.0) mmol/L Anion Gap (5-15) mmol/L BUN (6-25) mg/dL Creatinine (0.51-1.17) mg/dL Est Cr Clr Drug Dosing mL/min Estimated GFR (MDRD) mL/min Glucose (75 - 99) mg/dL POC Glucose 177 H 134 H 183 H (74-106) mg/dl Calcium (8.7-10.3) mg/dL Total Bilirubin (0.2-1.0) mg/dL AST (15-37) U/L ALT (12-78) U/L Alkaline Phosphatase (46-116) IU/L Total Protein (6.4-8.2) g/dL Albumin (3.00-4.80) g/dL 03/15/19 03/15/19 Range/Units 06:47 07:15 Sodium 141 (136-145) mmol/L Potassium 4.1 (3.3-5.3) mmol/L Chloride 103 (98-115) mmol/L Carbon Dioxide 30.5 (21.0-32.0) mmol/L Anion Gap 11.6 (5-15) mmol/L BUN 14 (6-25) mg/dL Creatinine 0.82 (0.51-1.17) mg/dL Est Cr Clr Drug Dosing 110.97 mL/min Estimated GFR (MDRD) > 60 mL/min Glucose 137 H (75 - 99) mg/dL POC Glucose 150 H (74-106) mg/dl Calcium 8.2 L (8.7-10.3) mg/dL Total Bilirubin 0.7 (0.2-1.0) mg/dL AST 15 (15-37) U/L ALT 17 (12-78) U/L Alkaline Phosphatase 114 (46-116) IU/L Total Protein 7.0 (6.4-8.2) g/dL Albumin 3.19 (3.00-4.80) g/dL Med Orders - Current: Current Medications Acetaminophen (Tylenol) 650 mg PO Q6H PRN PRN Reason: Pain Last Admin: 03/08/19 03:19 Dose: 650 mg Calcium Citrate (Calcium Citrate + D) 1 tab PO BIDMEALS [facility] Last Admin: 03/15/19 07:58 Dose: 1 tab Clonazepam (Klonopin) 0.25 mg PO BEDTIME [facility] Last Admin: 03/14/19 21:27 Dose: 0.25 mg Escitalopram Oxalate (Lexapro) 20 mg PO DAILY [facility] Last Admin: 03/15/19 08:02 Dose: 20 mg Fludrocortisone Acetate (Florinef) 0.2 mg PO WITHBREAKFAST [facility] Last Admin: 03/15/19 07:59 Dose: 0.2 mg Insulin Aspart (Novolog) 0 unit SUBCUT TIDMEALS [facility]; Protocol Last Admin: 03/15/19 08:11 Dose: 2 unit Insulin Aspart (Novolog) 10 unit SUBCUT TIDMEALS [facility] Last Admin: 03/15/19 07:59 Dose: 10 units Insulin Detemir (Levemir) 28 unit SUBCUT DAILY [facility] Last Admin: 03/15/19 08:01 Dose: 28 units Metformin HCl (Glucophage) 1,000 mg PO BIDMEALS [facility] Last Admin: 03/15/19 07:59 Dose: 1,000 mg Midodrine (Midodrine) 10 mg PO TIDAC [facility] Last Admin: 03/15/19 10:40 Dose: 10 mg Omeprazole (Omeprazole) 20 mg PO ACBREAKFAST [facility] Last Admin: 03/15/19 06:45 Dose: 20 mg Ondansetron HCl (Zofran Odt) 4 mg PO Q6H PRN PRN Reason: Nausea/Vomiting Last Admin: 03/09/19 07:08 Dose: 4 mg Victoza (Liraglutide ) 0.6 Mg/0.1 Ml 3 Ml Pen 1.8 each SUBCUT DAILY [facility] Last Admin: 03/15/19 08:00 Dose: 1.8 each Polyethylene Glycol (Miralax) 17 gm PO DAILY PRN PRN Reason: Constipation Rosuvastatin Calcium (Crestor) 2.5 mg PO DAILY [facility] Last Admin: 03/15/19 08:02 Dose: 2.5 mg Sodium Chloride (Sodium Chloride) 1 gm PO TIDMEALS [facility] Last Admin: 03/15/19 08:00 Dose: 1 gm Discontinued Medications Aspirin (Ecotrin) 325 mg PO DAILY [facility] Last Admin: 03/07/19 09:12 Dose: 325 mg Atropine Sulfate (Atropine 0.1 Mg/Ml) 0 mg IVPUSH ASDIRECTED PRN PRN Reason: Heart Clonazepam (Klonopin) 0.25 mg PO BID [facility] Last Admin: 03/06/19 20:09 Dose: 0.25 mg Epinephrine HCl (Epinephrine 1:10,000) 1 mg IVPUSH ASDIRECTED PRN PRN Reason: Heart Fludrocortisone Acetate (Florinef) 0.1 mg PO WITHBREAKFAST [facility] Last Admin: 03/10/19 08:36 Dose: 0.1 mg Fludrocortisone Acetate (Florinef) 0.1 mg PO ONETIME ONE Stop: 03/10/19 10:51 Last Admin: 03/10/19 11:48 Dose: 0.1 mg Sodium Chloride (Normal Saline) 1,000 mls @ 999 mls/hr IV .BOLUS ONE Stop: 03/05/19 13:00 Last Admin: 03/05/19 12:00 Dose: 999 mls/hr Sodium Chloride (Normal Saline) 1,000 mls @ 150 mls/hr IV ASDIRECTED [facility] Last Admin: 03/06/19 06:58 Dose: 150 mls/hr Sodium Chloride (Normal Saline) 1,000 mls @ 999 mls/hr IV .BOLUS ONE Stop: 03/06/19 12:51 Last Admin: 03/06/19 12:01 Dose: 999 mls/hr Sodium Chloride (Normal Saline) 1,000 mls @ 150 mls/hr IV ASDIRECTED [facility] Last Admin: 03/07/19 08:05 Dose: 150 mls/hr Insulin Aspart (Novolog) 8 unit SUBCUT TIDMEALS [facility] Last Admin: 03/09/19 08:17 Dose: 8 units Insulin Detemir (Levemir) 20 unit SUBCUT DAILY [facility] Last Admin: 03/07/19 09:15 Dose: 20 unit Insulin Detemir (Levemir) 25 unit SUBCUT DAILY [facility] Last Admin: 03/10/19 08:37 Dose: 25 units Lidocaine HCl (Xylocaine 2%) 0 mg IVPUSH ASDIRECTED PRN PRN Reason: Heart Losartan Potassium (Cozaar) 25 mg PO DAILY [facility] Last Admin: 03/06/19 10:02 Dose: Not Given Metformin HCl (Glucophage) 1,000 mg PO ONETIME [facility] Last Admin: 03/07/19 12:11 Dose: 1,000 mg Midodrine (Midodrine) 5 mg PO TIDAC [facility] Last Admin: 03/08/19 13:03 Dose: Not Given Nitroglycerin (Nitrostat) 0.4 mg SL ASDIRECTED PRN PRN Reason: Heart Sodium Chloride (Saline Flush) 10 ml FLUSH Q8HR PRN PRN Reason: keep vein open Sodium Chloride (Saline Flush) 10 ml FLUSH Q8HR PRN PRN Reason: keep vein open Last Admin: 03/06/19 13:10 Dose: 10 ml - Exam Physical Findings Comments:: GENERAL: Well-appearing adult white male sitting in bedside chair in no acute distress. HEENT: Normocephalic, atraumatic. Conjunctiva clear. Nares patent without discharge. Mucous membranes moist, posterior pharynx unremarkable. NECK: Supple, no masses. CV: Regular rate and rhythm, no murmurs, rubs, or gallops. 2+ radial pulses. PULMONARY: Normal effort, clear to auscultation bilaterally, no wheezes, rales, or rhonchi. ABDOMEN: Positive bowel sounds, soft, nontender, nondistended. EXTREMITIES: Partial amputation of left foot. No edema, cyanosis, or clubbing. MUSCULOSKELETAL: Moves all extremities well. NEUROLOGICAL: No obvious deficits. DERMATOLOGIC: No rashes or suspicious lesions in exposed areas. PSYCHIATRIC: Alert, interactive, appropriate affect. 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 Prior to this he states that he had been complaining of dizziness. He was not noted to have any seizure-like activity around the time of the fall. He reports that he has been eating and drinking well, as well as taking his insulin and blood sugars as usual. Sister reports that he has been eating a lot more sweets lately. He has had several episodes like this in the past in which she becomes dehydrated and has syncopal episodes. He also reports progressive symptoms of dizziness upon standing for the past several weeks to months. He was down only for a few moments with this episode and responsive thereafter. The fall was witnessed and he was brought into the emergency department by EMS. Of note, last month, he also had cardiac workup of echocardiogram and cardiac catheterization, which were normal. ED course: In the emergency department, he denied any complaints other than dizziness and exam, including neurological, cardiovascular, and pulmonary exams were unremarkable. He had significant orthostatic hypotension from supine to standing. Labs were notable for elevated creatinine at 1.74, troponin of 0.08, and blood glucose of 195. Hospital course and overall plan: He was initially admitted into observation status for syncope, orthostatic hypotension, and elevated troponin. Troponins were trended and subsequently normalized and no concerns noted on telemetry. With NS boluses and infusion, he was volume resuscitated and reached volume neutral status with resolution of LIV , as well as losartan discontinued, but he remained orthostatic with significant symptoms. Due to ongoing significantly symptomatic orthostasis, suboptimal control of DMT2 , and extremely high risk for readmission given multiple prior hospital admissions, limited cognitive function and baseline medical insight, patient was transferred to inpatient status for further monitoring and management. Kishore stockings and abdominal binder were initiated as well as encouraging consistent oral intake. He was started on midodrine 5mg TID and later increased to 10 mg TID. Florinef 0.1 mg and NaCl 1 gm TID were also added due to ongoing symptomatic orthostatic hypotension. Etiology was felt to be secondary to diabetic autonomic neuropathy. Phone consultation with [facility] and cardiology were obtained, and both felt that etiology was fitting. Neurology felt the patient could possibly benefit from motion studies and recommended cardiology referral. Cardiology felt that the current treatment and no other work-up was necessary at this point, other than consideration for endocrinology referral as outpatient if control of diabetes continued to be suboptimal. He remains orthostatic, but systolic BP decrease and pulse increase are improving, as are patient symptoms. Continue BID monitoring and current regimen. A1c also noted to be 9.7%. Following resolution of LIV and achieving volume neutral status, metformin 1000mg BID was restarted. Liraglutide 1.8mg daily was continued. Levemir insulin (Lantus at home) was increased to 28un (from 20un) on admission. NovoLog insulin was increased to 10un (from 8un) TID with meals in addition to medium dose sliding scale. BGs much improved and with overall good control in the past few days with minimal sliding scale use. Will optimize regimen tomorrow for planned discharge to SNF. Due to deconditioning, physical therapy was consulted. It was determined that patient would benefit from SNF stay with plan to be admitted to [facility] on . Hospitalization problems: # Orthostatic hypotension: Persistent and symptomatic. Management as detailed above. # Autonomic neuropathy, secondary to DMT2 # Syncopal episode: No recurrence. Etiology likely neurally-mediated reflex syncope. # NSTEMI, type 2: Troponin peak 0.08, then normalized. # Hx HTN: Losartan discontinued. # Acute kidney injury, resolved: Cr peak 1.74, then normalized. # DMT2, uncontrolled, with polyneuropathy and autonomic neuropathy: A1c 9.7%. Management as detailed above. # Deconditioning: Physical therapy. Chronic, stable conditions: # HLD: Continue statin. ASA discontinued given lack of benefit for primary prevention. # Obesity: Hold phentermine while in hospital. # GERD: Controlled. Continue PPI; consider de-escalation to H2B in future. # Hepatic steatosis # Constipation: Controlled. Continue PEG. # Hx diabetic foot infections and subsequent progressive amputation of left foot # Anxiety: Stable. Continue escitalopram and clonzepam 0.25mg at bedtime. AM clonazepam dose discontinued given possible contribution to dizziness and orthostasis. Recent psychology recommendations include that the patient should continue with individual psychotherapy to address symptoms, develop coping strategies, and improve functioning across settings; If symptoms fail to improve or worsen, it is recommended the patient seek a medication management consultation to determine the usefulness, cost/benefits of a psychopharmacological intervention for his current constellation of symptoms; and Close follow-up with PCP. # Cognitive impairment Hospitalization details: # FEN: No IVF. Electrolytes normal. Diabetic diet. # PPX: SCDs and ambulation for DVT ppx, for which he is low risk. # Code status: FULL. # Emergency contact: Sister. # Disposition: Continue in inpatient status. Plan to discharge to [facility] on 03/17/19 for ongoing physical rehabilitation and close monitoring of VS and BGs. Family is assisting with applying for disability.
[2019-03-15] MEDS: ClonazePAM 0.5 MG Tab PO SCH (20:44)
[2019-03-16] MEDS: Midodrine 5 MG Tab PO SCH ×3 (06:20→17:43)
[2019-03-16] MEDS: Omeprazole 20 MG Cap.CR PO SCH (07:19)
[2019-03-16] MEDS: Fludrocortisone 0.1 MG Tab PO SCH (07:32)
[2019-03-16] MEDS: Sodium Chloride 1 GM Tab PO SCH ×3 (07:32→17:43)
[2019-03-16] MEDS: Calcium Citrate/Vitamin D3 315 MG-250 Unit Tab PO SCH ×2 (07:32→17:43)
[2019-03-16] MEDS: metFORMIN 500 MG Tab PO SCH ×2 (07:32→17:42)
[2019-03-16] MEDS: Insulin Aspart 100 Units/ML 3 ML Pen SUBCUT SCH ×3 (08:04→12:06)
[2019-03-16] MEDS: VICTOZA 0.6 MG/0.1 ML SUBCUT SCH (08:09)
[2019-03-16] MEDS: Insulin Detemir 100 Units/ML 3 ML Pen SUBCUT SCH (08:20)
[2019-03-16] MEDS: Rosuvastatin 5 MG Tab PO SCH (08:22)
[2019-03-16] MEDS: Escitalopram 10 MG Tab PO SCH (08:22)
--- NOTE | 2019-03-16 11:02 | PCM.PN ---
- General Info Date of Service: 03/16/19 Subjective Update: States that the lightheadedness with standing was not present last night and this morning. Endorses excitement that he is feeling so much better. Tolerating po intake well. Ambulating well. No new concerns. No nursing concerns. - Patient Data Vitals - Most Recent: Last Vital Signs Temp 36.8 C 03/16/19 06:36 Pulse 81 03/16/19 06:36 Resp 20 03/16/19 06:36 BP 136/88 03/16/19 06:36 Pulse Ox 95 03/16/19 06:36 Orthostatic Blood Pressure [ 117/79 Sitting] Orthostatic Blood Pressure [ 117/73 Standing] Orthostatic Blood Pressure [ 135/76 Supine] Weight - Most Recent: 121.79 kg I&O - Last 24 Hours: Intake & Output 03/15/19 03/16/19 03/16/19 22:59 06:59 14:59 Intake Total 150 300 Output Total 800 975 Balance -650 -675 Lab Results Last 24 Hours: Laboratory Results - last 24 hr 03/15/19 03/15/19 03/15/19 Range/Units 11:44 17:32 20:47 POC Glucose 181 H 156 H 103 (74-106) mg/dl 03/16/19 Range/Units 07:26 POC Glucose 134 H (74-106) mg/dl Med Orders - Current: Current Medications Acetaminophen (Tylenol) 650 mg PO Q6H PRN PRN Reason: Pain Last Admin: 03/08/19 03:19 Dose: 650 mg Calcium Citrate (Calcium Citrate + D) 1 tab PO BIDMEALS [facility] [place] Last Admin: 03/16/19 07:32 Dose: 1 tab Clonazepam (Klonopin) 0.25 mg PO BEDTIME [facility] [place] Last Admin: 03/15/19 20:44 Dose: 0.25 mg Escitalopram Oxalate (Lexapro) 20 mg PO DAILY [facility] [place] Last Admin: 03/16/19 08:22 Dose: 20 mg Fludrocortisone Acetate (Florinef) 0.2 mg PO WITHBREAKFAST [facility] [place] Last Admin: 03/16/19 07:32 Dose: 0.2 mg Insulin Aspart (Novolog) 10 unit SUBCUT 0800,1200 [facility] [place] Insulin Aspart (Novolog) 8 unit SUBCUT 1800 [facility] [place] Insulin Detemir (Levemir) 30 unit SUBCUT DAILY [facility] [place] Last Admin: 03/16/19 08:20 Dose: 30 units Metformin HCl (Glucophage) 1,000 mg PO BIDMEALS [facility] [place] Last Admin: 03/16/19 07:32 Dose: 1,000 mg Midodrine (Midodrine) 10 mg PO TIDAC [facility] [place] Last Admin: 03/16/19 06:20 Dose: 10 mg Omeprazole (Omeprazole) 20 mg PO ACBREAKFAST [facility] [place] Last Admin: 03/16/19 07:19 Dose: 20 mg Ondansetron HCl (Zofran Odt) 4 mg PO Q6H PRN PRN Reason: Nausea/Vomiting Last Admin: 03/09/19 07:08 Dose: 4 mg Victoza (Liraglutide ) 0.6 Mg/0.1 Ml 3 Ml Pen 1.8 each SUBCUT DAILY [facility] [place] Last Admin: 03/16/19 08:09 Dose: 1.8 each Polyethylene Glycol (Miralax) 17 gm PO DAILY PRN PRN Reason: Constipation Rosuvastatin Calcium (Crestor) 2.5 mg PO DAILY [facility] [place] Last Admin: 03/16/19 08:22 Dose: 2.5 mg Sodium Chloride (Sodium Chloride) 1 gm PO TIDMEALS [facility] [place] Last Admin: 03/16/19 07:32 Dose: 1 gm Discontinued Medications Aspirin (Ecotrin) 325 mg PO DAILY [facility] [place] Last Admin: 03/07/19 09:12 Dose: 325 mg Atropine Sulfate (Atropine 0.1 Mg/Ml) 0 mg IVPUSH ASDIRECTED PRN PRN Reason: Heart Clonazepam (Klonopin) 0.25 mg PO BID [facility] [place] Last Admin: 03/06/19 20:09 Dose: 0.25 mg Epinephrine HCl (Epinephrine 1:10,000) 1 mg IVPUSH ASDIRECTED PRN PRN Reason: Heart Fludrocortisone Acetate (Florinef) 0.1 mg PO WITHBREAKFAST [facility] [place] Last Admin: 03/10/19 08:36 Dose: 0.1 mg Fludrocortisone Acetate (Florinef) 0.1 mg PO ONETIME ONE Stop: 03/10/19 10:51 Last Admin: 03/10/19 11:48 Dose: 0.1 mg Sodium Chloride (Normal Saline) 1,000 mls @ 999 mls/hr IV .BOLUS ONE Stop: 03/05/19 13:00 Last Admin: 03/05/19 12:00 Dose: 999 mls/hr Sodium Chloride (Normal Saline) 1,000 mls @ 150 mls/hr IV ASDIRECTED [facility] [place] Last Admin: 03/06/19 06:58 Dose: 150 mls/hr Sodium Chloride (Normal Saline) 1,000 mls @ 999 mls/hr IV .BOLUS ONE Stop: 03/06/19 12:51 Last Admin: 03/06/19 12:01 Dose: 999 mls/hr Sodium Chloride (Normal Saline) 1,000 mls @ 150 mls/hr IV ASDIRECTED [facility] [place] Last Admin: 03/07/19 08:05 Dose: 150 mls/hr Insulin Aspart (Novolog) 0 unit SUBCUT TIDMEALS [facility] [place]; Protocol Last Admin: 03/16/19 08:04 Dose: Not Given Insulin Aspart (Novolog) 8 unit SUBCUT TIDMEALS [facility] [place] Last Admin: 03/09/19 08:17 Dose: 8 units Insulin Aspart (Novolog) 10 unit SUBCUT TIDMEALS [facility] [place] Last Admin: 03/16/19 08:06 Dose: 10 units Insulin Detemir (Levemir) 20 unit SUBCUT DAILY [facility] [place] Last Admin: 03/07/19 09:15 Dose: 20 unit Insulin Detemir (Levemir) 25 unit SUBCUT DAILY [facility] [place] Last Admin: 03/10/19 08:37 Dose: 25 units Insulin Detemir (Levemir) 28 unit SUBCUT DAILY [facility] [place] Last Admin: 03/15/19 08:01 Dose: 28 units Lidocaine HCl (Xylocaine 2%) 0 mg IVPUSH ASDIRECTED PRN PRN Reason: Heart Losartan Potassium (Cozaar) 25 mg PO DAILY [facility] [place] Last Admin: 03/06/19 10:02 Dose: Not Given Metformin HCl (Glucophage) 1,000 mg PO ONETIME [facility] [place] Last Admin: 03/07/19 12:11 Dose: 1,000 mg Midodrine (Midodrine) 5 mg PO TIDAC [facility] [place] Last Admin: 03/08/19 13:03 Dose: Not Given Nitroglycerin (Nitrostat) 0.4 mg SL ASDIRECTED PRN PRN Reason: Heart Sodium Chloride (Saline Flush) 10 ml FLUSH Q8HR PRN PRN Reason: keep vein open Sodium Chloride (Saline Flush) 10 ml FLUSH Q8HR PRN PRN Reason: keep vein open Last Admin: 03/06/19 13:10 Dose: 10 ml - Exam Physical Findings Comments:: GENERAL: Well-appearing adult white male sitting in chair in family room working on Mesitis in no acute distress. HEENT: Normocephalic, atraumatic. Conjunctiva clear. Nares patent without discharge. Mucous membranes moist, posterior pharynx unremarkable. NECK: Supple, no masses. CV: Regular rate and rhythm, no murmurs, rubs, or gallops. 2+ radial pulses. PULMONARY: Normal effort, clear to auscultation bilaterally, no wheezes, rales, or rhonchi. ABDOMEN: Positive bowel sounds, soft, nontender, nondistended. EXTREMITIES: Partial amputation of left foot. No edema, cyanosis, or clubbing. MUSCULOSKELETAL: Moves all extremities well. NEUROLOGICAL: No obvious deficits. DERMATOLOGIC: No rashes or suspicious lesions in exposed areas. PSYCHIATRIC: Alert, interactive, appropriate affect. 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 Prior to this he states that he had been complaining of dizziness. He was not noted to have any seizure-like activity around the time of the fall. He reports that he has been eating and drinking well, as well as taking his insulin and blood sugars as usual. Sister reports that he has been eating a lot more sweets lately. He has had several episodes like this in the past in which she becomes dehydrated and has syncopal episodes. He also reports progressive symptoms of dizziness upon standing for the past several weeks to months. He was down only for a few moments with this episode and responsive thereafter. The fall was witnessed and he was brought into the emergency department by EMS. Of note, last month, he also had cardiac workup of echocardiogram and cardiac catheterization, which were normal. ED course: In the emergency department, he denied any complaints other than dizziness and exam, including neurological, cardiovascular, and pulmonary exams were unremarkable. He had significant orthostatic hypotension from supine to standing. Labs were notable for elevated creatinine at 1.74, troponin of 0.08, and blood glucose of 195. Hospital course and overall plan: He was initially admitted into observation status for syncope, orthostatic hypotension, and elevated troponin. Troponins were trended and subsequently normalized and no concerns noted on telemetry. With NS boluses and infusion, he was volume resuscitated and reached volume neutral status with resolution of LIV , as well as losartan discontinued, but he remained orthostatic with significant symptoms. Due to ongoing significantly symptomatic orthostasis, suboptimal control of DMT2 , and extremely high risk for readmission given multiple prior hospital admissions, limited cognitive function and baseline medical insight, patient was transferred to inpatient status for further monitoring and management. Kishore stockings and abdominal binder were initiated as well as encouraging consistent oral intake. He was started on midodrine 5mg TID and later increased to 10 mg TID. Florinef 0.1 mg and NaCl 1 gm TID were also added due to ongoing symptomatic orthostatic hypotension. Etiology was felt to be secondary to diabetic autonomic neuropathy. Phone consultation with [facility] and cardiology were obtained, and both felt that etiology was fitting. Neurology felt the patient could possibly benefit from motion studies and recommended cardiology referral. Cardiology felt that the current treatment and no other work-up was necessary at this point, other than consideration for endocrinology referral as outpatient if control of diabetes continued to be suboptimal. Orthostasis resolved for two sets of vital signs in a row on 03/16/19 with resolution of symptoms as well. Continue BID monitoring and current regimen. A1c also noted to be 9.7%. Following resolution of LIV and achieving volume neutral status, metformin 1000mg BID was restarted. Liraglutide 1.8mg daily was continued. Home insulin regimen was Lantus 20un daily and NovoLog 8un TID with meals, which was increased throughout stay. BGs much improved and with overall good control in the past few days with minimal sliding scale use, but noted low- end in the morning. Increase Levemir (Lantus at discharge) to 30un daily and change NovoLog to 10-10-8 with meals. Due to deconditioning, physical therapy was consulted. It was determined that patient would benefit from SNF stay with plan to be admitted to [facility] on . Hospitalization problems: # Orthostatic hypotension: Persistent and symptomatic. Management as detailed above. # Autonomic neuropathy, secondary to DMT2 # Syncopal episode: No recurrence. Etiology likely neurally-mediated reflex syncope. # NSTEMI, type 2: Troponin peak 0.08, then normalized. # Hx HTN: Losartan discontinued. # Acute kidney injury, resolved: Cr peak 1.74, then normalized. # DMT2, uncontrolled, with polyneuropathy and autonomic neuropathy: A1c 9.7%. Management as detailed above. # Deconditioning: Physical therapy. Chronic, stable conditions: # HLD: Continue statin. ASA discontinued given lack of benefit for primary prevention. # Obesity: Hold phentermine while in hospital. # GERD: Controlled. Continue PPI; consider de-escalation to H2B in future. # Hepatic steatosis # Constipation: Controlled. Continue PEG. # Hx diabetic foot infections and subsequent progressive amputation of left foot # Anxiety: Stable. Continue escitalopram and clonzepam 0.25mg at bedtime. AM clonazepam dose discontinued given possible contribution to dizziness and orthostasis. Recent psychology recommendations include that the patient should continue with individual psychotherapy to address symptoms, develop coping strategies, and improve functioning across settings; If symptoms fail to improve or worsen, it is recommended the patient seek a medication management consultation to determine the usefulness, cost/benefits of a psychopharmacological intervention for his current constellation of symptoms; and Close follow-up with PCP. # Cognitive impairment Hospitalization details: # FEN: No IVF. Electrolytes normal. Diabetic diet. # PPX: SCDs and ambulation for DVT ppx, for which he is low risk. # Code status: FULL. # Emergency contact: Sister. # Disposition: Continue in inpatient status. Plan to discharge to [facility] SNF on 03/17/19 for ongoing physical rehabilitation and close monitoring of VS and BGs. Family is assisting with applying for disability.
[2019-03-16] MEDS ORDERED: Insulin Aspart 100 Units/ML 3 ML Pen SUBCUT SCH (18:00)
[2019-03-16] MEDS: ClonazePAM 0.5 MG Tab PO SCH (21:28)
[2019-03-17 06:17] VITALS: BP 154/100
[2019-03-17] MEDS: Midodrine 5 MG Tab PO SCH ×2 (06:18→11:08)
[2019-03-17] MEDS: Omeprazole 20 MG Cap.CR PO SCH (07:28)
[2019-03-17] MEDS: Insulin Detemir 100 Units/ML 3 ML Pen SUBCUT SCH (08:08)
[2019-03-17] MEDS: VICTOZA 0.6 MG/0.1 ML SUBCUT SCH (08:09)
[2019-03-17] MEDS: Insulin Aspart 100 Units/ML 3 ML Pen SUBCUT SCH (08:09)
[2019-03-17] MEDS: Fludrocortisone 0.1 MG Tab PO SCH (08:10)
[2019-03-17] MEDS: metFORMIN 500 MG Tab PO SCH (08:10)
[2019-03-17] MEDS: Sodium Chloride 1 GM Tab PO SCH (08:10)
[2019-03-17] MEDS: Escitalopram 10 MG Tab PO SCH (08:11)
[2019-03-17] MEDS: Rosuvastatin 5 MG Tab PO SCH (08:11)
[2019-03-17] MEDS: Calcium Citrate/Vitamin D3 315 MG-250 Unit Tab PO SCH (08:11)
--- NOTE | 2019-03-17 09:50 | PCM.DCSUM1 ---
Discharge Summary - Hospital Course Free Text/Narrative:: Date of admission: 03/05/19 Date of discharge: 03/17/19 Admission diagnoses: # Orthostatic hypotension # Syncopal episode # NSTEMI # Hx HTN # Acute kidney injury # DMT2, uncontrolled, with polyneuropathy and autonomic neuropathy # Deconditioning Discharge diagnoses: # Orthostatic hypotension # Autonomic neuropathy, secondary to DMT2 # Syncopal episode # NSTEMI, type 2 # Hx HTN # Acute kidney injury, resolved # DMT2, uncontrolled, with polyneuropathy and autonomic neuropathy # Deconditioning Consultations: Phone consultation with [facility] and cardiology were obtained, and both felt that etiology was fitting. Neurology felt the patient could possibly benefit from motion studies and recommended cardiology referral. Cardiology felt that the current treatment and no other work-up was necessary at this point , other than consideration for endocrinology referral as outpatient if control of diabetes continued to be suboptimal. 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 Prior to this he states that he had been complaining of dizziness. He was not noted to have any seizure-like activity around the time of the fall. He reports that he has been eating and drinking well, as well as taking his insulin and blood sugars as usual. Sister reports that he has been eating a lot more sweets lately. He has had several episodes like this in the past in which she becomes dehydrated and has syncopal episodes. He also reports progressive symptoms of dizziness upon standing for the past several weeks to months. He was down only for a few moments with this episode and responsive thereafter. The fall was witnessed and he was brought into the emergency department by EMS. Of note, last month, he also had cardiac workup of echocardiogram and cardiac catheterization, which were normal. In the emergency department, he denied any complaints other than dizziness and exam, including neurological, cardiovascular, and pulmonary exams were unremarkable. He had significant orthostatic hypotension from supine to standing. Labs were notable for elevated creatinine at 1.74, troponin of 0.08, and blood glucose of 195. He was initially admitted into observation status for syncope, orthostatic hypotension, and elevated troponin. Troponins were trended and subsequently normalized and no concerns noted on telemetry. With NS boluses and infusion, he was volume resuscitated and reached volume neutral status with resolution of LIV , as well as losartan discontinued, but he remained orthostatic with significant symptoms. Due to ongoing significantly symptomatic orthostasis, suboptimal control of DMT2 , and extremely high risk for readmission given multiple prior hospital admissions, limited cognitive function and baseline medical insight, patient was transferred to inpatient status for further monitoring and management. Kishore stockings and abdominal binder were initiated as well as encouraging consistent oral intake. He was started on midodrine 5mg TID and later increased to 10 mg TID. Florinef 0.1 mg and NaCl 1 gm TID were also added due to ongoing symptomatic orthostatic hypotension. Etiology was felt to be secondary to diabetic autonomic neuropathy. Phone consultation with [facility] and [facility]ology were obtained, and both felt that etiology was fitting. Neurology felt the patient could possibly benefit from motion studies and recommended cardiology referral. Cardiology felt that the current treatment and no other work-up was necessary at this point, other than consideration for endocrinology referral as outpatient if control of diabetes continued to be suboptimal. Orthostasis resolved for three out of four sets of vital signs in a row at time of discharge with resolution of symptoms as well. A1c also noted to be 9.7%. Following resolution of LIV and achieving volume neutral status, metformin 1000mg BID was restarted. Liraglutide 1.8mg daily was continued. Home insulin regimen was Lantus 20un daily and NovoLog 8un TID with meals, which was increased throughout stay. BGs much improved and with overall good control in the past few days with minimal sliding scale use, but noted low- end in the morning. Increased Levemir (Lantus at discharge) to 30un daily and change NovoLog to 10-10-8 with meals. Due to deconditioning, physical therapy was consulted. It was determined that patient would benefit from SNF stay with plan to be admitted to [facility] on . Family is assisting with applying for disability. He was continued on other medications for chronic medical conditions with the exception of aspirin, which was discontinued given lack of benefit for primary prevention. His phentermine was also discontinued. See medication list for updated discharge medications and orders. Modified Alysa Scale: Mod.Sev.Disability ;Unable to Walk/Attend Bodily Needs W/ O Assistance Modified [place] Scale Score: 4 - Discharge Data Discharge Date: 03/17/19 Discharge Disposition: DC/Tfer to SNF 03 Condition: Good - Patient Summary/Data Consults: Consultations 03/11/19 11:44 Consult to Physical Therapy [PT Evaluation and Treatment] [CONS] Routine - Patient Instructions Diet: Diabetic Diet Activity: As Tolerated Showering/Bathing: May Shower Notify Provider of: Fever, Increased Pain, Nausea and/or Vomiting - Discharge Plan *PRESCRIPTION DRUG MONITORING PROGRAM REVIEWED*: Not Applicable *COPY OF PRESCRIPTION DRUG MONITORING REPORT IN PATIENT [place]: Not Applicable Prescriptions/Med Rec: Escitalopram [Lexapro] 20 mg PO DAILY #30 tab Fludrocortisone [Florinef] 0.2 mg PO WITHBREAKFAST #30 tablet Insulin Glarg,Human.Rec.Analog [Lantus Solostar] 30 unit SUBCUT DAILY #1 pen Midodrine 10 mg PO TIDAC #90 tablet Sodium Chloride 1 gm PO TIDMEALS #90 tablet Home Medications: Home Meds Calcium Carbonate/Vitamin D3 [Calcium 600 + Vit D 400 Softgl] 1 tab PO BIDMEALS 02/27/17 [History] Omeprazole 20 mg PO ACBREAKFAST 02/27/17 [History] Polyethylene Glycol 3350 [MiraLAX] 17 gm PO DAILY PRN 02/27/17 [History] Liraglutide [Victoza] 1.8 mg SUBCUT DAILY 03/14/17 [History] metFORMIN [Glucophage] 1,000 mg PO BIDMEALS 03/14/17 [History] Multivitamin with Minerals [Multivitamins with Minerals] 1 each PO DAILY [History] Acetaminophen [Tylenol] 650 mg PO Q6H PRN tablet 03/04/18 [Rx] Rosuvastatin [Crestor] 2.5 mg PO DAILY 12/04/18 [History] ClonazePAM [KlonoPIN] 0.25 mg PO BEDTIME PRN tablet 03/17/19 [Rx] Escitalopram [Lexapro] 20 mg PO DAILY #30 tab 03/17/19 [Rx] Fludrocortisone [Florinef] 0.2 mg PO WITHBREAKFAST #30 tablet 03/17/19 [Rx] Insulin Aspart [NovoLOG] 8 unit SUBCUT DAILY@1800 pen 03/17/19 [Rx] Insulin Aspart [NovoLOG] 10 unit SUBCUT BID@0800,1200 pen 03/17/19 [Rx] Insulin Glarg,Human.Rec.Analog [Lantus Solostar] 30 unit SUBCUT DAILY #1 pen 12/31 [Rx] Midodrine 10 mg PO TIDAC #90 tablet 03/17/19 [Rx] Ondansetron [Zofran ODT] 4 mg PO Q6H PRN tab.dis 03/17/19 [Rx] Sodium Chloride 1 gm PO TIDMEALS #90 tablet 03/17/19 [Rx] [facility] PCP,Unknown [Ordering Only Provider] - (next rounds at [facility]) - Discharge Summary/Plan Comment DC Time >30 min.: Yes - General Info Admission Dx/Problem (Free Text: Syncope/Orthostatic hypotension Subjective Update: States that the lightheadedness with standing was not present last night and this morning. Endorses excitement that he is feeling so much better. Tolerating po intake well. Ambulating well. No new concerns. No nursing concerns. - Patient Data Vitals - Most Recent: Last Vital Signs Temp 37.0 C 03/17/19 06:16 Pulse 85 03/17/19 06:16 Resp 20 03/17/19 06:16 BP 154/100 H 03/17/19 06:16 Pulse Ox 94 L 03/17/19 06:16 Orthostatic Blood Pressure [ 137/80 Sitting] Orthostatic Blood Pressure [ 123/73 Standing] Orthostatic Blood Pressure [ 157/85 Supine] Weight - Most Recent: 121.79 kg I&O - Last 24 hours: Intake & Output 03/16/19 03/17/19 03/17/19 22:59 06:59 14:59 Intake Total 530 300 Output Total 700 1150 Balance -170 -850 Lab Results - Last 24 hrs: Laboratory Results - last 24 hr 03/16/19 03/16/19 03/16/19 Range/Units 11:30 17:38 21:27 POC Glucose 153 H 113 H 119 H (74-106) mg/dl 03/17/19 Range/Units 06:18 POC Glucose 133 H (74-106) mg/dl Med Orders - Current: Current Medications Acetaminophen (Tylenol) 650 mg PO Q6H PRN PRN Reason: Pain Last Admin: 05/25/19 03:19 Dose: 650 mg Calcium Citrate (Calcium Citrate + D) 1 tab PO BIDMEALS [facility] Last Admin: 03/17/19 08:11 Dose: 1 tab Clonazepam (Klonopin) 0.25 mg PO BEDTIME [facility] Last Admin: 03/16/19 21:28 Dose: 0.25 mg Escitalopram Oxalate (Lexapro) 20 mg PO DAILY [facility] Last Admin: 03/17/19 08:11 Dose: 20 mg Fludrocortisone Acetate (Florinef) 0.2 mg PO WITHBREAKFAST [facility] Last Admin: 03/17/19 08:10 Dose: 0.2 mg Insulin Aspart (Novolog) 10 unit SUBCUT BID@0800,1200 [facility] Last Admin: 03/17/19 08:09 Dose: 10 units Insulin Aspart (Novolog) 8 unit SUBCUT DAILY@1800 [facility] Last Admin: 03/16/19 18:00 Dose: 8 units Insulin Detemir (Levemir) 30 unit SUBCUT DAILY [facility] Last Admin: 03/17/19 08:08 Dose: 30 units Metformin HCl (Glucophage) 1,000 mg PO BIDMEALS [facility] Last Admin: 03/17/19 08:10 Dose: 1,000 mg Midodrine (Midodrine) 10 mg PO TIDAC [facility] Last Admin: 03/17/19 06:18 Dose: 10 mg Omeprazole (Omeprazole) 20 mg PO ACBREAKFAST [facility] Last Admin: 03/17/19 07:28 Dose: 20 mg Ondansetron HCl (Zofran Odt) 4 mg PO Q6H PRN PRN Reason: Nausea/Vomiting Last Admin: 03/09/19 07:08 Dose: 4 mg Victoza (Liraglutide ) 0.6 Mg/0.1 Ml 3 Ml Pen 1.8 each SUBCUT DAILY [facility] Last Admin: 03/17/19 08:09 Dose: 1.8 each Polyethylene Glycol (Miralax) 17 gm PO DAILY PRN PRN Reason: Constipation Rosuvastatin Calcium (Crestor) 2.5 mg PO DAILY [facility] Last Admin: 03/17/19 08:11 Dose: 2.5 mg Sodium Chloride (Sodium Chloride) 1 gm PO TIDMEALS [facility] Last Admin: 03/17/19 08:10 Dose: 1 gm Discontinued Medications Aspirin (Ecotrin) 325 mg PO DAILY [facility] Last Admin: 03/07/19 09:12 Dose: 325 mg Atropine Sulfate (Atropine 0.1 Mg/Ml) 0 mg IVPUSH ASDIRECTED PRN PRN Reason: Heart Clonazepam (Klonopin) 0.25 mg PO BID [facility] Last Admin: 03/06/19 20:09 Dose: 0.25 mg Epinephrine HCl (Epinephrine 1:10,000) 1 mg IVPUSH ASDIRECTED PRN PRN Reason: Heart Fludrocortisone Acetate (Florinef) 0.1 mg PO WITHBREAKFAST [facility] Last Admin: 03/10/19 08:36 Dose: 0.1 mg Fludrocortisone Acetate (Florinef) 0.1 mg PO ONETIME ONE Stop: 03/10/19 10:51 Last Admin: 03/10/19 11:48 Dose: 0.1 mg Sodium Chloride (Normal Saline) 1,000 mls @ 999 mls/hr IV .BOLUS ONE Stop: 03/05/19 13:00 Last Admin: 03/05/19 12:00 Dose: 999 mls/hr Sodium Chloride (Normal Saline) 1,000 mls @ 150 mls/hr IV ASDIRECTED [facility] Last Admin: 03/06/19 06:58 Dose: 150 mls/hr Sodium Chloride (Normal Saline) 1,000 mls @ 999 mls/hr IV .BOLUS ONE Stop: 03/06/19 12:51 Last Admin: 03/06/19 12:01 Dose: 999 mls/hr Sodium Chloride (Normal Saline) 1,000 mls @ 150 mls/hr IV ASDIRECTED [facility] Last Admin: 03/07/19 08:05 Dose: 150 mls/hr Insulin Aspart (Novolog) 0 unit SUBCUT TIDMEALS [facility]; Protocol Last Admin: 03/16/19 08:04 Dose: Not Given Insulin Aspart (Novolog) 8 unit SUBCUT TIDMEALS [facility] Last Admin: 03/09/19 08:17 Dose: 8 units Insulin Aspart (Novolog) 10 unit SUBCUT TIDMEALS [facility] Last Admin: 03/16/19 08:06 Dose: 10 units Insulin Detemir (Levemir) 20 unit SUBCUT DAILY [facility] Last Admin: 03/07/19 09:15 Dose: 20 unit Insulin Detemir (Levemir) 25 unit SUBCUT DAILY [facility] Last Admin: 03/10/19 08:37 Dose: 25 units Insulin Detemir (Levemir) 28 unit SUBCUT DAILY [facility] Last Admin: 03/15/19 08:01 Dose: 28 units Lidocaine HCl (Xylocaine 2%) 0 mg IVPUSH ASDIRECTED PRN PRN Reason: Heart Losartan Potassium (Cozaar) 25 mg PO DAILY [facility] Last Admin: 03/06/19 10:02 Dose: Not Given Metformin HCl (Glucophage) 1,000 mg PO ONETIME [facility] Last Admin: 03/07/19 12:11 Dose: 1,000 mg Midodrine (Midodrine) 5 mg PO TIDAC [facility] Last Admin: 03/08/19 13:03 Dose: Not Given Nitroglycerin (Nitrostat) 0.4 mg SL ASDIRECTED PRN PRN Reason: Heart Sodium Chloride (Saline Flush) 10 ml FLUSH Q8HR PRN PRN Reason: keep vein open Sodium Chloride (Saline Flush) 10 ml FLUSH Q8HR PRN PRN Reason: keep vein open Last Admin: 03/06/19 13:10 Dose: 10 ml - Exam Physical Findings Comments:: GENERAL: Well-appearing adult white male sitting in bedside chair in no acute distress. HEENT: Normocephalic, atraumatic. Conjunctiva clear. Nares patent without discharge. Mucous membranes moist, posterior pharynx unremarkable. NECK: Supple, no masses. CV: Regular rate and rhythm, no murmurs, rubs, or gallops. 2+ radial pulses. PULMONARY: Normal effort, clear to auscultation bilaterally, no wheezes, rales, or rhonchi. ABDOMEN: Positive bowel sounds, soft, nontender, nondistended. EXTREMITIES: Partial amputation of left foot. No edema, cyanosis, or clubbing. MUSCULOSKELETAL: Moves all extremities well. NEUROLOGICAL: No obvious deficits. DERMATOLOGIC: No rashes or suspicious lesions in exposed areas. PSYCHIATRIC: Alert, interactive, appropriate affect.
== END 2019-03-17 11:53 | DRG 281 ==
LOC: KA.ED 10:50 → KA.MS 13:04 → OBSVTOIN 03-07 11:27
PROVIDERS: ADMIT Family Medicine; ATTEND Family Medicine
DX: I95.1 Orthostatic hypotension (principal); I21.A1 Myocardial infarction type 2; N17.9 Acute kidney failure, unspecified; W18.30XA Fall on same level, unspecified, initial encounter; E78.00 Pure hypercholesterolemia, unspecified; H54.7 Unspecified visual loss; I12.9 Hypertensive chronic kidney disease with stage 1 through stage 4 chronic kidney disease, or unspecified chronic kidney disease; K21.9 Gastro-esophageal reflux disease without esophagitis; N18.9 Chronic kidney disease, unspecified; F41.9 Anxiety disorder, unspecified; F32.9 Major depressive disorder, single episode, unspecified; F41.0 Panic disorder [episodic paroxysmal anxiety]; E66.9 Obesity, unspecified; E11.22 Type 2 diabetes mellitus with diabetic chronic kidney disease; E11.43 Type 2 diabetes mellitus with diabetic autonomic (poly)neuropathy; K76.0 Fatty (change of) liver, not elsewhere classified; K59.00 Constipation, unspecified; G31.84 Mild cognitive impairment of uncertain or unknown etiology; Z90.49 Acquired absence of other specified parts of digestive tract; Z89.412 Acquired absence of left great toe; Z79.82 Long term (current) use of aspirin; Z88.1 Allergy status to other antibiotic agents; Z88.2 Allergy status to sulfonamides; Z79.4 Long term (current) use of insulin; Z68.35 Body mass index [BMI] 35.0-35.9, adult
CPT/HCPCS: 36415; 70450; 70551; 71046; 80048; 80053; 82550; 82553; 82962; 83036; 84484; 85025; 93005; 96360; 96361; 97110-GP; 97112-GP; 97162-GP; 99285-25; A9270-GY; G0378; J1815-GY; J7030

== ENCOUNTER 2019-03-24 23:25 | Emergency (ER) | payer OTHER ==
--- NOTE | 2019-03-24 23:46 | EDM.PDOC ---
ED HPI GENERAL MEDICAL PROBLEM - General Chief Complaint: Headache Stated Complaint: headache Time Seen by Provider: 03/24/19 23:29 Source of Information: Reports: Patient, EMS - History of Present Illness INITIAL COMMENTS - FREE TEXT/NARRATIVE: Patient brought via EMS with worst headache ever and hypertension. The headache started 2.5 hours ago quite abruptly. Pt says he occasionally gets minor headaches but nothing like this. No evidence of facial droop or limb weakness per patient and EMS. No blood thinners and no history of IL or stroke. When the headache started he also had lightheadedness and N/V. Left Temporal Head Pain Score (Numeric/FACES): 10 - Related Data Allergies Allergy/AdvReac Type Severity Reaction Status Date / Time vancomycin Allergy Intermediate Rash Verified 03/24/19 23:27 Sulfa (Sulfonamide Allergy Shortness Verified 03/24/19 23:27 Antibiotics) of Breath Home Meds: Home Meds Calcium Carbonate/Vitamin D3 [Calcium 600 + Vit D 400 Softgl] 1 tab PO BIDMEALS 02/27/17 [History] Omeprazole 20 mg PO ACBREAKFAST 02/27/17 [History] Polyethylene Glycol 3350 [MiraLAX] 17 gm PO DAILY PRN 02/27/17 [History] Liraglutide [Victoza] 1.8 mg SUBCUT DAILY 03/14/17 [History] metFORMIN [Glucophage] 1,000 mg PO BIDMEALS 03/14/17 [History] Multivitamin with Minerals [Multivitamins with Minerals] 1 each PO DAILY [History] Acetaminophen [Tylenol] 650 mg PO Q6H PRN tablet 03/04/18 [Rx] Rosuvastatin [Crestor] 2.5 mg PO DAILY 12/04/18 [History] ClonazePAM [KlonoPIN] 0.25 mg PO BEDTIME PRN tablet 03/17/19 [Rx] Escitalopram [Lexapro] 20 mg PO DAILY #30 tab 03/17/19 [Rx] Fludrocortisone [Florinef] 0.2 mg PO WITHBREAKFAST #30 tablet 03/17/19 [Rx] Insulin Aspart [NovoLOG] 8 unit SUBCUT DAILY@1800 pen 03/17/19 [Rx] Insulin Aspart [NovoLOG] 10 unit SUBCUT BID@0800,1200 pen 03/17/19 [Rx] Insulin Glarg,Human.Rec.Analog [Lantus Solostar] 30 unit SUBCUT DAILY #1 pen 12/31 [Rx] Midodrine 10 mg PO TIDAC #90 tablet 03/17/19 [Rx] Ondansetron [Zofran ODT] 4 mg PO Q6H PRN tab.dis 03/17/19 [Rx] Sodium Chloride 1 gm PO TIDMEALS #90 tablet 03/17/19 [Rx] Past Medical History HEENT History: Reports: Impaired Vision Cardiovascular History: Reports: High Cholesterol, Hypertension Other Cardiovascular History: Orthostatic Hypotension Respiratory History: Reports: None Gastrointestinal History: Reports: GERD Genitourinary History: Reports: Chronic Renal Insuffiency Musculoskeletal History: Reports: Amputation Other Musculoskeletal History: 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 Neurological History: Reports: Neuropathy, Diabetic Psychiatric History: Reports: Anxiety, Depression, Panic Attack Endocrine/Metabolic History: Reports: Diabetes, Type II, IDDM, Obesity/BMI 30+ Hematologic History: Reports: None Immunologic History: Reports: None Oncologic (Cancer) History: Reports: None Dermatologic History: Reports: Cellulitis - Infectious Disease History Infectious Disease History: Reports: Chicken Pox, MRSA, Mumps - Past Surgical History HEENT Surgical History: Reports: None Cardiovascular Surgical History: Reports: None Respiratory Surgical History: Reports: None GI Surgical History: Reports: Appendectomy, Cholecystectomy, Colonoscopy Male Surgical History: Reports: None Endocrine Surgical History: Reports: None Neurological Surgical History: Reports: None Musculoskeletal Surgical History: Reports: Amputation, Arthroscopic Knee Dermatological Surgical History: Reports: None Social & Family History - Family History Family Medical History: Noncontributory HEENT: Reports: None Cardiac: Reports: None Respiratory: Reports: None GI: Reports: None : Reports: None OBGYN: Reports: None Musculoskeletal: Reports: None Neurological: Reports: None Psychiatric: Reports: None Endocrine/Metabolic: Reports: Diabetes, type II Hematologic: Reports: None Immunologic: Reports: None Dermatologic: Reports: None Oncologic: Reports: Prostate - Caffeine Use Caffeine Use: Reports: Soda Other Caffeine Use: Diet Coke Caffeine Use Comment: Diet Coke ED ROS GENERAL - Review of Systems Review Of Systems: See Below Constitutional: Denies: Fever, Weakness HEENT: Denies: Ear Pain, Vision Change Respiratory: Denies: Shortness of Breath, Cough Cardiovascular: Reports: Lightheadedness. Denies: Chest Pain, Syncope GI/Abdominal: Reports: Vomiting (3x). Denies: Abdominal Pain, Diarrhea : Denies: Dysuria, Flank Pain Musculoskeletal: Reports: No Symptoms Skin: Denies: Cyanosis, Jaundice, Mottled, Pallor, Diaphoresis Neurological: Reports: Dizziness, Headache. Denies: Confusion, Numbness, Seizure, Syncope, Trouble Speaking Psychiatric: Denies: Agitation, Anxiety, Confusion - Physical Exam Exam: See Below Exam Limited By: No Limitations General Appearance: Alert, WD/WN, No Apparent Distress Eye Exam: Bilateral Eye: EOMI, Normal Inspection, PERRL Ears: Normal External Exam, Hearing Grossly Normal Nose: Normal Inspection, No Blood Throat/Mouth: Normal Inspection, Normal Lips, Normal Voice, No Airway Compromise Head Exam: Atraumatic, Normocephalic Neck: Normal Inspection, Supple, Non-Tender Respiratory/Chest: No Respiratory Distress, Lungs Clear, Normal Breath Sounds Cardiovascular: Regular Rate, Rhythm, No Murmur GI/Abdominal: Soft, Non-Tender Neuro Exam (Abbreviated): Alert, Oriented, CN II-XII Intact, Normal Cognition, No Motor/Sensory Deficits Extremities: Normal Inspection Psychiatric: Normal Affect, Normal Mood Skin Exam: Warm, Dry, Intact, Normal Color, No Rash Course - Vital Signs Last Recorded V/S: Last Vital Signs Temp 97.6 F 03/24/19 23:25 Pulse 99 03/25/19 00:45 Resp 16 03/25/19 00:15 BP 142/84 H 03/25/19 00:45 Pulse Ox 94 L 03/25/19 00:45 - Orders/Labs/Meds Orders: Active Orders 24 hr Category Date Time Status Head wo Cont [CT] Stat Exams 03/24/19 23:29 Ordered Sodium Chloride 0.9% @ 999 MLS/HR (1000ml) Med 03/25/19 00:31 Ordered Sodium Chloride 0.9% [Normal Saline] 1,000 ml IV .BOLUS Medication Orders Sodium Chloride (Normal Saline) 1,000 mls @ 999 mls/hr IV .BOLUS ONE Stop: 03/25/19 01:31 Last Admin: 03/25/19 00:33 Dose: 999 mls/hr Labs: Laboratory Tests 03/24/19 03/24/19 03/24/19 Range/Units 23:45 23:45 23:45 WBC 12.61 H (5.00-10.00) 10^3/uL RBC 3.97 L (4.50-6.00) 10^6/uL Hgb 13.0 (13.0-17.0) g/dL Hct 36.9 L (40.0-52.0) % MCV 92.9 H (82.0-92.0) fL MCH 32.7 H (27.0-31.0) pg MCHC 35.2 (32.0-36.0) g/dL RDW 12.7 (11.5-14.5) % Plt Count 395 (150-400) 10^3/uL MPV 10.1 (7.4-10.4) fL Immature Gran % (Auto) 0.2 (0.0-5.0) % Neut % (Auto) 72.7 H (50.0-70.0) % Lymph % (Auto) 18.1 L (20.0-40.0) % [place] % (Auto) 6.1 (2.0-8.0) % Eos % (Auto) 2.6 (1.0-3.0) % Baso % (Auto) 0.3 (0.0-1.0) % Immature Gran # (Auto) 0.03 (0.00-0.50) 10^3/uL Neut # (Auto) 9.16 H (2.50-7.00) 10^3/uL Lymph # (Auto) 2.28 (1.00-4.00) 10^3/uL [place] # (Auto) 0.77 (0.10-0.80) 10^3/uL Eos # (Auto) 0.33 H (0.10-0.30) 10^3/uL Baso # (Auto) 0.04 (0.00-0.10) 10^3/uL PT 10.3 (8.9-11.4) SEC INR 1.0 (0.9-1.1) APTT 25.6 (23.1-31.3) SEC Sodium 146 H (136-145) mmol/L Potassium 3.7 (3.3-5.3) mmol/L Chloride 106 (98-115) mmol/L Carbon Dioxide 26.0 (21.0-32.0) mmol/L Anion Gap 17.7 H (5-15) mmol/L BUN 17 (6-25) mg/dL Creatinine 0.73 (0.51-1.17) mg/dL Est Cr Clr Drug Dosing TNP Estimated GFR (MDRD) > 60 mL/min Glucose 103 H (75 - 99) mg/dL Calcium 8.6 L (8.7-10.3) mg/dL Meds: Medications Generic Name Dose Route Start Last Admin Trade Name Freq PRN Reason Stop Dose Admin Sodium Chloride 1,000 mls @ 999 mls/hr 03/25/19 00:31 03/25/19 00:33 Normal Saline IV 03/25/19 01:31 999 mls/hr .BOLUS ONE Administration Discontinued Medications Generic Name Dose Route Start Last Admin Trade Name Freq PRN Reason Stop Dose Admin Diphenhydramine HCl 50 mg 03/25/19 00:31 03/25/19 00:36 Benadryl IVPUSH 03/25/19 00:32 50 mg ONETIME ONE Administration Ketorolac Tromethamine 30 mg 03/25/19 00:31 03/25/19 00:35 Toradol IVPUSH 03/25/19 00:32 30 mg ONETIME ONE Administration Ondansetron HCl 4 mg 03/25/19 00:31 03/25/19 00:34 Zofran IVPUSH 03/25/19 00:32 4 mg ONETIME ONE Administration - Re-Assessments/Exams Free Text/Narrative Re-Assessment/Exam: 03/25/19 00:[address] is normal. WBC is 12 but without any evidence of an infection feel most likely due to the vomiting. Will give migraine cocktail now. 03/25/19 01:22 Patient is feeling much better and headache is gone. Patient is discharged to [facility] in stable condition. Departure - Departure Time of Disposition: 01:19 Disposition: DC/Tfer to SNF 03 Condition: Good Clinical Impression: Migraine - Discharge Information Instructions: Migraine Headache, [id number] Forms: ED Department Discharge Additional Instructions: 1. Drink 8 cups of water daily. 2. Follow up with your PCP in 2-3 days for evaluation of headache treatment options. - My Orders Last 24 Hours: My Active Orders 03/24/19 23:29 Head wo Cont [CT] Stat 03/25/19 00:31 Sodium Chloride 0.9% @ 999 MLS/HR (1000ml) Sodium Chloride 0.9% [Normal Saline] 1,000 ml IV .BOLUS - Assessment/Plan Last 24 Hours: My Active Orders 03/24/19 23:29 Head wo Cont [CT] Stat 03/25/19 00:31 Sodium Chloride 0.9% @ 999 MLS/HR (1000ml) Sodium Chloride 0.9% [Normal Saline] 1,000 ml IV .BOLUS
[2019-03-25 00:29] LABS: ANION GAP 17.7 mmol/L (5-15); CHLORIDE,CL 106 mmol/L (98-115); SODIUM,NA 146 mmol/L (136-145)
[2019-03-25] MEDS: Sodium Chloride 0.9% 1,000 ML IV ONE (00:33)
[2019-03-25] MEDS: Ondansetron 4 MG/2 ML SDV IVPUSH ONE (00:34)
[2019-03-25] MEDS: Ketorolac 30 MG/ML SDV IVPUSH ONE (00:35)
[2019-03-25] MEDS: diphenhydrAMINE 50 MG/ML SDV IVPUSH ONE (00:36)
[2019-03-25 04:01] VITALS: BP 137/65
--- NOTE | 2019-03-25 08:07 | CT ---
[id number] CT/CT Head WO IV EXAM: CT Head WO IV CLINICAL DATA: HEADACHE COMPARISON: CORRELATION IS MADE WITH THE EXAM OF MARCH 05, 2019. FINDINGS: There is no mass or mass effect. There is no hemorrhage or hydrocephalus. There are no extra-axial fluid collections. There are no sites of abnormal attenuation. IMPRESSION: NO PLAIN CT EVIDENCE OF ACUTE INTRACRANIAL PROCESS. Abundio Garcia MD 03/25/19 0806 Thank you for allowing us to participate in the care of your patient.
== END 2019-03-25 01:30 ==
LOC: KA.ED 23:25
DX: G43.909 Migraine, unspecified, not intractable, without status migrainosus (principal); I12.9 Hypertensive chronic kidney disease with stage 1 through stage 4 chronic kidney disease, or unspecified chronic kidney disease; N18.9 Chronic kidney disease, unspecified; K21.9 Gastro-esophageal reflux disease without esophagitis; E11.22 Type 2 diabetes mellitus with diabetic chronic kidney disease; E66.9 Obesity, unspecified; E11.40 Type 2 diabetes mellitus with diabetic neuropathy, unspecified; Z90.49 Acquired absence of other specified parts of digestive tract; F41.9 Anxiety disorder, unspecified; F32.9 Major depressive disorder, single episode, unspecified; Z88.1 Allergy status to other antibiotic agents; Z88.2 Allergy status to sulfonamides; Z79.899 Other long term (current) drug therapy; Z79.4 Long term (current) use of insulin
CPT/HCPCS: 36415; 70450; 80048; 85025; 85610; 85730; 93005; 96361; 96374; 96375; 99284-25; J1200; J1885; J2405; J7030

== ENCOUNTER 2019-07-09 10:25 | Inpatient (IN) | payer MEDICAID, OTHER, SELFPAY ==
[2019-07-09] MEDS ORDERED: Sodium Chloride 0.9% 10 ML Syringe FLUSH PRN (10:41)
[2019-07-09] MEDS ORDERED: Sodium Chloride 0.9% 1,000 ML IV ONE (10:42)
--- NOTE | 2019-07-09 11:22 | EDM.PDOC ---
ED HPI GENERAL MEDICAL PROBLEM - General Chief Complaint: General Stated Complaint: ELEVATED BLOOD SUGAR/WEAKNESS Time Seen by Provider: 07/09/19 11:00 Source of Information: Reports: Patient History Limitations: Reports: No Limitations - History of Present Illness INITIAL COMMENTS - FREE TEXT/NARRATIVE: 58 YO WM with PMH of NIDDM, obesity and frequent orthostasis presents to ER with complaints of lightheadedness, fatigue and elevated blood glucose readings at home. Pt reports over the last couple of days he's felt nauseated and vomited x 2. Pt reports this am his BS was 400 and he took 10units of Humalog. Pt denies any recent illness. No fever/chills, no shortness of breath, no diarrhea. Duration: Day(s): (3) Location: Reports: Generalized Severity: Mild Improves with: Reports: None Worsens with: Reports: None Associated Symptoms: Reports: No Other Symptoms, Nausea/Vomiting. Denies: Confusion, Fever/Chills, Loss of Appetite, Malaise, Shortness of Breath, Weakness - Related Data Allergies Allergy/AdvReac Type Severity Reaction Status Date / Time vancomycin Allergy Intermediate Rash Verified 07/09/19 10:33 Sulfa (Sulfonamide Allergy Shortness Verified 07/09/19 10:33 Antibiotics) of Breath Home Meds: Home Meds Calcium Carbonate/Vitamin D3 [Calcium 600 + Vit D 400 Softgl] 1 tab PO BIDMEALS 02/27/17 [History] Omeprazole 20 mg PO ACBREAKFAST 02/27/17 [History] Polyethylene Glycol 3350 [MiraLAX] 17 gm PO DAILY PRN 02/27/17 [History] Liraglutide [Victoza] 1.8 mg SUBCUT DAILY 03/14/17 [History] Multivitamin with Minerals [Multivitamins with Minerals] 1 each PO DAILY [History] Acetaminophen [Tylenol] 650 mg PO Q6H PRN tablet 03/04/18 [Rx] ClonazePAM [KlonoPIN] 0.25 mg PO BEDTIME PRN tablet 03/17/19 [Rx] Escitalopram [Lexapro] 20 mg PO DAILY #30 tab 03/17/19 [Rx] Fludrocortisone [Florinef] 0.2 mg PO WITHBREAKFAST #30 tablet 03/17/19 [Rx] Insulin Aspart [NovoLOG] 8 unit SUBCUT DAILY@1800 pen 03/17/19 [Rx] Midodrine 10 mg PO TIDAC #90 tablet 03/17/19 [Rx] Ondansetron [Zofran ODT] 4 mg PO Q6H PRN tab.dis 03/17/19 [Rx] Insulin Aspart [NovoLOG] 8 unit SUBCUT BID@0800,1200 07/09/19 [History] Insulin Glarg,Human.Rec.Analog [Lantus Solostar] 30 unit SUBCUT BEDTIME [History] Losartan Potassium 25 mg PO DAILY 07/09/19 [History] Rosuvastatin Calcium 40 mg PO DAILY 07/09/19 [History] metFORMIN HCl [Metformin HCl] 1,000 mg PO BIDMEALS 07/09/19 [History] Past Medical History HEENT History: Reports: Impaired Vision Cardiovascular History: Reports: High Cholesterol, Hypertension Other Cardiovascular History: Orthostatic Hypotension Respiratory History: Reports: None Gastrointestinal History: Reports: GERD Genitourinary History: Reports: Chronic Renal Insuffiency Musculoskeletal History: Reports: Amputation Other Musculoskeletal History: 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 Neurological History: Reports: Neuropathy, Diabetic Psychiatric History: Reports: Anxiety, Depression, Panic Attack Endocrine/Metabolic History: Reports: Diabetes, Type II, IDDM, Obesity/BMI 30+ Hematologic History: Reports: None Immunologic History: Reports: None Oncologic (Cancer) History: Reports: None Dermatologic History: Reports: Cellulitis - Infectious Disease History Infectious Disease History: Reports: Chicken Pox, MRSA - Past Surgical History HEENT Surgical History: Reports: None Cardiovascular Surgical History: Reports: None Respiratory Surgical History: Reports: None GI Surgical History: Reports: Appendectomy, Cholecystectomy, Colonoscopy Endocrine Surgical History: Reports: None Neurological Surgical History: Reports: None Musculoskeletal Surgical History: Reports: Amputation, Arthroscopic Knee Dermatological Surgical History: Reports: None Social & Family History - Family History Family Medical History: Noncontributory HEENT: Reports: None Cardiac: Reports: None Respiratory: Reports: None GI: Reports: None : Reports: None OBGYN: Reports: None Musculoskeletal: Reports: None Neurological: Reports: None Psychiatric: Reports: None Endocrine/Metabolic: Reports: Diabetes, type II Hematologic: Reports: None Immunologic: Reports: None Dermatologic: Reports: None Oncologic: Reports: Prostate - Tobacco Use Smoking Status *Q: Never Smoker - Caffeine Use Caffeine Use: Reports: Soda Other Caffeine Use: Diet Coke Caffeine Use Comment: Diet Coke - Recreational Drug Use Recreational Drug Use: No ED ROS GENERAL - Review of Systems Review Of Systems: See Below Constitutional: Reports: Malaise HEENT: Reports: No Symptoms Respiratory: Reports: No Symptoms Cardiovascular: Reports: No Symptoms Endocrine: Reports: No Symptoms GI/Abdominal: Reports: Nausea, Vomiting. Denies: Abdominal Pain, Diarrhea : Reports: No Symptoms Musculoskeletal: Reports: No Symptoms Skin: Reports: No Symptoms Neurological: Reports: No Symptoms Psychiatric: Reports: No Symptoms Hematologic/Lymphatic: Reports: No Symptoms Immunologic: Reports: No Symptoms ED EXAM, GENERAL - Physical Exam Exam: See Below Exam Limited By: No Limitations General Appearance: Alert, WD/WN, No Apparent Distress Nose: Normal Inspection, Normal Mucosa, No Blood Throat/Mouth: Normal Inspection, Normal Lips, Normal Teeth, Normal Gums, Normal Oropharynx, Normal Voice, No Airway Compromise Head: Atraumatic, Normocephalic Neck: Normal Inspection, Supple, Non-Tender, Full Range of Motion Respiratory/Chest: No Respiratory Distress, Lungs Clear, Normal Breath Sounds, No Accessory Muscle Use, Chest Non-Tender Cardiovascular: Normal Peripheral Pulses, Regular Rate, Rhythm, No Edema, No Gallop, No JVD, No Murmur, No Rub GI/Abdominal: Normal Bowel Sounds, Soft, Non-Tender, No Organomegaly, No Distention, No Abnormal Bruit, No Mass Back Exam: Normal Inspection, Full Range of Motion, NT Extremities: Normal Inspection, Normal Range of Motion, Non-Tender, Normal Capillary Refill, No Pedal Edema Neurological: Alert, Oriented, CN II-XII Intact, Normal Cognition, Normal Gait, Normal Reflexes, No Motor/Sensory Deficits Psychiatric: Normal Affect, Normal Mood Skin Exam: Warm, Dry, Intact, Normal Color, No Rash Lymphatic: No Adenopathy Course - Vital Signs Last Recorded V/S: Last Vital Signs Temp 36.6 C 07/09/19 10:42 Pulse 108 H 07/09/19 10:42 Resp 20 07/09/19 10:42 BP 142/98 H 07/09/19 10:42 Pulse Ox 100 07/09/19 10:42 Orthostatic Blood Pressure [ 102/70 Standing] Orthostatic Blood Pressure [ 131/79 Sitting] Orthostatic Blood Pressure [ 120/82 Supine] - Orders/Labs/Meds Orders: Active Orders 24 hr Category Date Time Status Blood Glucose Check, Bedside [RC] ONETIME Care 07/09/19 10:30 Active Orthostatic Vital Signs [RC] ASDIRECTED Care 07/09/19 11:09 Active Peripheral IV Care [RC] . DIRECTED Care 07/09/19 10:41 Active B-HYDROXYBUTYRATE [REF] Stat Lab 07/09/19 10:45 Received BASIC METABOLIC PANEL,BMP [CHEM] Stat Lab 07/09/19 10:45 Received Serum Ketones [B-HYDROXYBUTYRATE] [REF] Stat Lab 07/09/19 11:15 Ordered Sodium Chloride 0.9% [Normal Saline] 1,000 ml Med 07/09/19 10:42 Active IV .BOLUS Sodium Chloride 0.9% [Saline Flush] Med 07/09/19 10:41 Active 10 ml FLUSH Q8HR PRN Peripheral IV Insertion Adult [OM.PC] Routine Oth 07/09/19 10:41 Ordered Medication Orders Sodium Chloride (Normal Saline) 1,000 mls @ 999 mls/hr IV .BOLUS ONE Stop: 07/09/19 11:42 Last Admin: 07/09/19 10:57 Dose: 999 mls/hr Sodium Chloride (Saline Flush) 10 ml FLUSH Q8HR PRN PRN Reason: keep vein open Last Admin: 07/09/19 11:14 Dose: 10 ml Labs: Laboratory Tests 07/09/19 Range/Units 10:45 WBC 10.31 H (5.00-10.00) 10^3/uL RBC 4.69 (4.50-6.00) 10^6/uL Hgb 14.8 D (13.0-17.0) g/dL Hct 42.4 (40.0-52.0) % MCV 90.4 (82.0-92.0) fL MCH 31.6 H (27.0-31.0) pg MCHC 34.9 (32.0-36.0) g/dL RDW 12.1 (11.5-14.5) % Plt Count 383 (150-400) 10^3/uL MPV 10.7 H (7.4-10.4) fL Immature Gran % (Auto) 0.3 (0.0-5.0) % Neut % (Auto) 81.3 H (50.0-70.0) % Lymph % (Auto) 12.3 L (20.0-40.0) % Donley % (Auto) 4.9 (2.0-8.0) % Eos % (Auto) 1.0 (1.0-3.0) % Baso % (Auto) 0.2 (0.0-1.0) % Immature Gran # (Auto) 0.03 (0.00-0.50) 10^3/uL Neut # (Auto) 8.38 H (2.50-7.00) 10^3/uL Lymph # (Auto) 1.27 (1.00-4.00) 10^3/uL Donley # (Auto) 0.51 (0.10-0.80) 10^3/uL Eos # (Auto) 0.10 (0.10-0.30) 10^3/uL Baso # (Auto) 0.02 (0.00-0.10) 10^3/uL Meds: Medications Generic Name Dose Route Start Last Admin Trade Name Freq PRN Reason Stop Dose Admin Sodium Chloride 1,000 mls @ 999 mls/hr 07/09/19 10:42 07/09/19 10:57 Normal Saline IV 07/09/19 11:42 999 mls/hr .BOLUS ONE Administration Sodium Chloride 10 ml 07/09/19 10:41 07/09/19 11:14 Saline Flush FLUSH 10 ml Q8HR PRN Administration keep vein open Departure - Departure Time of Disposition: 11:43 Disposition: Admitted As Inpatient 66 Condition: Fair Clinical Impression: Orthostatic hypotension, Hyperosmolality due to uncontrolled type 1 diabetes mellitus, Hyponatremia, Hypochloremia - Discharge Information Referrals: Mednez Hawley, [employer] [Primary Care Provider] - - My Orders Last 24 Hours: My Active Orders 07/09/19 10:30 Blood Glucose Check, Bedside [RC] ONETIME 07/09/19 10:41 Peripheral IV Care [RC] . DIRECTED Sodium Chloride 0.9% [Saline Flush] 10 ml FLUSH Q8HR PRN Peripheral IV Insertion Adult [OM.PC] Routine 07/09/19 10:42 Sodium Chloride 0.9% [Normal Saline] 1,000 ml IV .BOLUS 07/09/19 10:45 B-HYDROXYBUTYRATE [REF] Stat BASIC METABOLIC PANEL,BMP [CHEM] Stat 07/09/19 11:09 Orthostatic Vital Signs [RC] ASDIRECTED 07/09/19 11:15 Serum Ketones [B-HYDROXYBUTYRATE] [REF] Stat - Assessment/Plan Last 24 Hours: My Active Orders 07/09/19 10:30 Blood Glucose Check, Bedside [RC] ONETIME 07/09/19 10:41 Peripheral IV Care [RC] . DIRECTED Sodium Chloride 0.9% [Saline Flush] 10 ml FLUSH Q8HR PRN Peripheral IV Insertion Adult [OM.PC] Routine 07/09/19 10:42 Sodium Chloride 0.9% [Normal Saline] 1,000 ml IV .BOLUS 07/09/19 10:45 B-HYDROXYBUTYRATE [REF] Stat BASIC METABOLIC PANEL,BMP [CHEM] Stat 07/09/19 11:09 Orthostatic Vital Signs [RC] ASDIRECTED 07/09/19 11:15 Serum Ketones [B-HYDROXYBUTYRATE] [REF] Stat Assessment:: 1. hyperosmolar hyperglycemia 2. hyponatremia 3. hypochloremia 4. orthostatic hypotension Plan: 1. admit to medicine- Mendez FRAUSTO 2. NS@125cc/hr 3. accucheck QAC and QHS 4. recheck labs in am 5. supportive care
[2019-07-09 11:23] LABS: ANION GAP 22.2 mmol/L (5-15); SODIUM,NA 128 mmol/L (136-145)
[2019-07-09 11:25] LABS: CHLORIDE,CL 89 mmol/L (98-115)
[2019-07-09] MEDS ORDERED: Ondansetron 4 MG/2 ML SDV IVPUSH ONE (11:27)
[2019-07-09] MEDS ORDERED: Ondansetron 4 MG/2 ML SDV ONE (11:28)
[2019-07-09] MEDS ORDERED: Insulin Regular, Human 100 Units/ML 10 ML Vial SUBCUT ONE (11:45)
[2019-07-09] MEDS ORDERED: Insulin Aspart 100 Units/ML 3 ML Pen SUBCUT ONE ×2 (11:51→17:54)
[2019-07-09] MEDS ORDERED: Ondansetron 4 MG/2 ML SDV IV PRN (11:53)
[2019-07-09] MEDS: Sodium Chloride 0.9% 1,000 ML IV SCH ×2 (12:36→20:25)
[2019-07-09] MEDS ORDERED: Polyethylene Glycol 3350 Powder 17 GM Packet PO PRN (16:25)
[2019-07-09] MEDS ORDERED: Ondansetron 4 MG Tab.DIS PO PRN (16:25)
[2019-07-09] MEDS ORDERED: Acetaminophen 325 MG Tab PO PRN (16:25)
[2019-07-09] MEDS: Midodrine 5 MG Tab PO SCH (17:00)
[2019-07-09] MEDS: Calcium Citrate/Vitamin D3 315 MG-250 Unit Tab PO SCH (17:22)
[2019-07-09] MEDS ORDERED: Insulin Glargine,Human Rec. Analog 100 Units/ML 3 ML Pen SUBCUT SCH (21:00)
[2019-07-10] MEDS: Sodium Chloride 0.9% 1,000 ML IV SCH ×2 (04:37→12:09)
[2019-07-10] MEDS: Midodrine 5 MG Tab PO SCH ×3 (06:28→17:19)
[2019-07-10] MEDS: Omeprazole 20 MG Cap.CR PO SCH (06:30)
[2019-07-10] MEDS ORDERED: Insulin Aspart 100 Units/ML 3 ML Pen SUBCUT ONE (08:00)
[2019-07-10 08:06] LABS: CHLORIDE,CL 101 mmol/L (98-115); SODIUM,NA 141 mmol/L (136-145)
[2019-07-10] MEDS: Aspirin 81 MG Tab.EC PO SCH (08:11)
[2019-07-10] MEDS: Calcium Citrate/Vitamin D3 315 MG-250 Unit Tab PO SCH ×2 (08:11→17:19)
[2019-07-10] MEDS: Multivitamins with Minerals/Iron/Folic Acid/Lycopene Tab PO SCH (08:11)
[2019-07-10] MEDS: Fludrocortisone 0.1 MG Tab PO SCH (08:11)
[2019-07-10] MEDS: Losartan 25 MG Tab PO SCH (08:11)
[2019-07-10] MEDS: Rosuvastatin 10 MG Tab PO SCH (08:11)
[2019-07-10] MEDS: Escitalopram 10 MG Tab PO SCH (08:11)
[2019-07-10] MEDS ORDERED: LANTUS 100 UNIT/ML SUBCUT SCH ×2 (08:52→09:48)
[2019-07-10] MEDS ORDERED: Liraglutide (rDNA Origin) 0.6 MG/0.1 ML 3 ML Pen SUBCUT SCH (09:00)
[2019-07-10] MEDS: VICTOZA 0.6 MG/0.1 ML SUBCUT SCH (09:58)
--- NOTE | 2019-07-10 10:24 | PCM.HP.2 ---
H&P History of Present Illness - General Date of Service: 07/10/19 Admit Problem/Dx: Admission Diagnosis/Problem Admission Diagnosis/Problem Hyperosmolar non-ketotic state in patient with type 2 diabetes mellitus Source of Information: Patient, Old Records, Provider, RN - Related Data Allergies/Adverse Reactions: Allergies Allergy/AdvReac Type Severity Reaction Status Date / Time vancomycin Allergy Intermediate Rash Verified 07/09/19 10:33 Sulfa (Sulfonamide Allergy Shortness Verified 07/09/19 10:33 Antibiotics) of Breath Home Medications: Home Meds Calcium Carbonate/Vitamin D3 [Calcium 600 + Vit D 400 Softgl] 1 tab PO BIDMEALS 02/27/17 [History] Omeprazole 20 mg PO ACBREAKFAST 02/27/17 [History] Polyethylene Glycol 3350 [MiraLAX] 17 gm PO DAILY PRN 02/27/17 [History] Liraglutide [Victoza] 1.8 mg SUBCUT DAILY 03/14/17 [History] Multivitamin with Minerals [Multivitamins with Minerals] 1 each PO DAILY [History] Acetaminophen [Tylenol] 650 mg PO Q6H PRN tablet 03/04/18 [Rx] Escitalopram [Lexapro] 20 mg PO DAILY #30 tab 03/17/19 [Rx] Fludrocortisone [Florinef] 0.2 mg PO WITHBREAKFAST #30 tablet 03/17/19 [Rx] Insulin Aspart [NovoLOG] 8 unit SUBCUT DAILY@1800 pen 03/17/19 [Rx] Midodrine 10 mg PO TIDAC #90 tablet 03/17/19 [Rx] Ondansetron [Zofran ODT] 4 mg PO Q6H PRN tab.dis 03/17/19 [Rx] Aspirin [Halfprin] 81 mg PO DAILY 07/09/19 [History] Insulin Aspart [NovoLOG] 10 unit SUBCUT BID@0800,1200 07/09/19 [History] Losartan Potassium 25 mg PO DAILY 07/09/19 [History] Rosuvastatin Calcium 40 mg PO DAILY 07/09/19 [History] metFORMIN HCl [Metformin HCl] 1,000 mg PO BIDMEALS 07/09/19 [History] Insulin Glarg,Human.Rec.Analog [Lantus Solostar] 35 unit SUBCUT BEDTIME #0 09/27 /19 [Rx] Past Medical History HEENT History: Reports: Impaired Vision Cardiovascular History: Reports: High Cholesterol, Hypertension Other Cardiovascular History: Orthostatic Hypotension Respiratory History: Reports: None Gastrointestinal History: Reports: GERD Genitourinary History: Reports: Chronic Renal Insuffiency Musculoskeletal History: Reports: Amputation Other Musculoskeletal History: 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 Neurological History: Reports: Neuropathy, Diabetic Psychiatric History: Reports: Anxiety, Depression, Panic Attack Endocrine/Metabolic History: Reports: Diabetes, Type II, IDDM, Obesity/BMI 30+ Hematologic History: Reports: None Immunologic History: Reports: None Oncologic (Cancer) History: Reports: None Dermatologic History: Reports: Cellulitis - Infectious Disease History Infectious Disease History: Reports: Chicken Pox, MRSA - Past Surgical History HEENT Surgical History: Reports: None Cardiovascular Surgical History: Reports: None Respiratory Surgical History: Reports: None GI Surgical History: Reports: Appendectomy, Cholecystectomy, Colonoscopy Endocrine Surgical History: Reports: None Neurological Surgical History: Reports: None Musculoskeletal Surgical History: Reports: Amputation, Arthroscopic Knee Dermatological Surgical History: Reports: None Social & Family History - Family History Family Medical History: Noncontributory HEENT: Reports: None Cardiac: Reports: None Respiratory: Reports: None GI: Reports: None : Reports: None OBGYN: Reports: None Musculoskeletal: Reports: None Neurological: Reports: None Psychiatric: Reports: None Endocrine/Metabolic: Reports: Diabetes, type II Hematologic: Reports: None Immunologic: Reports: None Dermatologic: Reports: None Oncologic: Reports: Prostate - Tobacco Use Smoking Status *Q: Never Smoker - Caffeine Use Caffeine Use: Reports: Soda Other Caffeine Use: Diet Coke Caffeine Use Comment: 1-2 per day - Recreational Drug Use Recreational Drug Use: No H&P Review of Systems - Review of Systems: Review Of Systems: See Below General: Reports: Malaise. Denies: Fever, Weakness, Night Sweats, Diaphoresis, Decreased Appetite HEENT: Reports: No Symptoms Pulmonary: Reports: No Symptoms Cardiovascular: Denies: Lightheadedness Gastrointestinal: Reports: No Symptoms Genitourinary: Reports: No Symptoms Musculoskeletal: Reports: Back Pain Skin: Reports: Dryness (Upper scapular back pain) Psychiatric: Reports: No Symptoms Neurological: Reports: No Symptoms Hematologic/Lymphatic: Reports: No Symptoms Immunologic: Reports: No Symptoms Exam - Exam Exam: See Below - Vital Signs Vital Signs: Last Vital Signs Temp 97.4 F 07/10/19 06:55 Pulse 70 07/10/19 06:55 Resp 16 07/10/19 06:55 BP 133/78 07/10/19 08:11 Pulse Ox 94 L 07/10/19 07:00 Orthostatic Blood Pressure [ 106/66 Standing] Orthostatic Blood Pressure [ 123/77 Sitting] Orthostatic Blood Pressure [ 126/75 Supine] Weight: 269 lb 9.6 oz - Exam Quality Assessment: No: Supplemental Oxygen General: Alert, Oriented, Cooperative HEENT: Pupils Equal. No: Mucosa Moist & [place] Neck: Supple. No: Lymphadenopathy Lungs: Clear to Auscultation, Normal Respiratory Effort Cardiovascular: Regular Rate, Regular Rhythm GI/Abdominal Exam: Normal Bowel Sounds, Soft, Non-Tender, No Organomegaly, No Distention (Male) Exam: Deferred Rectal (Males) Exam: Deferred Back Exam: No: CVA Tenderness (L), CVA Tenderness (R) Extremities: No Pedal Edema Peripheral Pulses: 2+: Radial (L), Radial (R) Skin: Warm, Dry, Intact Neurological: Cranial Nerves Intact, Reflexes Equal Bilateral Neuro Extensive - Mental Status: Alert, Oriented x3, Normal Mood/Affect, Normal Cognition Neuro Extensive - Motor, Sensory, Reflexes: CN II-XII Intact, Normal Gait, Normal Reflexes Psychiatric: Alert, Normal Affect, Normal Mood - Patient Data Lab Results Last 24 hrs: Laboratory Results - last 24 hr 07/09/19 07/09/19 07/09/19 Range/Units 10:45 10:45 10:45 WBC 10.31 H (5.00-10.00) 10^3/uL RBC 4.69 (4.50-6.00) 10^6/uL Hgb 14.8 D (13.0-17.0) g/dL Hct 42.4 (40.0-52.0) % MCV 90.4 (82.0-92.0) fL MCH 31.6 H (27.0-31.0) pg MCHC 34.9 (32.0-36.0) g/dL RDW 12.1 (11.5-14.5) % Plt Count 383 (150-400) 10^3/uL MPV 10.7 H (7.4-10.4) fL Immature Gran % (Auto) 0.3 (0.0-5.0) % Neut % (Auto) 81.3 H (50.0-70.0) % Lymph % (Auto) 12.3 L (20.0-40.0) % [place] % (Auto) 4.9 (2.0-8.0) % Eos % (Auto) 1.0 (1.0-3.0) % Baso % (Auto) 0.2 (0.0-1.0) % Immature Gran # (Auto) 0.03 (0.00-0.50) 10^3/uL Neut # (Auto) 8.38 H (2.50-7.00) 10^3/uL Lymph # (Auto) 1.27 (1.00-4.00) 10^3/uL [place] # (Auto) 0.51 (0.10-0.80) 10^3/uL Eos # (Auto) 0.10 (0.10-0.30) 10^3/uL Baso # (Auto) 0.02 (0.00-0.10) 10^3/uL Sodium 128 L D (136-145) mmol/L Potassium 4.6 (3.3-5.3) mmol/L Chloride 89 L* D (98-115) mmol/L Carbon Dioxide 21.4 (21.0-32.0) mmol/L Anion Gap 22.2 H (5-15) mmol/L BUN 26 H (6-25) mg/dL Creatinine 1.05 (0.51-1.17) mg/dL Est Cr Clr Drug Dosing 84.17 mL/min Estimated GFR (MDRD) > 60 mL/min Glucose 498 H (75 - 99) mg/dL POC Glucose (74-106) mg/dl Calcium 9.5 (8.7-10.3) mg/dL B-Hydroxybutyrate 5.5 H* (0.0-0.2) mmol/L 07/09/19 07/09/19 07/09/19 Range/Units 11:45 17:34 20:59 WBC (5.00-10.00) 10^3/uL RBC (4.50-6.00) 10^6/uL Hgb (13.0-17.0) g/dL Hct (40.0-52.0) % MCV (82.0-92.0) fL MCH (27.0-31.0) pg MCHC (32.0-36.0) g/dL RDW (11.5-14.5) % Plt Count (150-400) 10^3/uL MPV (7.4-10.4) fL Immature Gran % (Auto) (0.0-5.0) % Neut % (Auto) (50.0-70.0) % Lymph % (Auto) (20.0-40.0) % [place] % (Auto) (2.0-8.0) % Eos % (Auto) (1.0-3.0) % Baso % (Auto) (0.0-1.0) % Immature Gran # (Auto) (0.00-0.50) 10^3/uL Neut # (Auto) (2.50-7.00) 10^3/uL Lymph # (Auto) (1.00-4.00) 10^3/uL [place] # (Auto) (0.10-0.80) 10^3/uL Eos # (Auto) (0.10-0.30) 10^3/uL Baso # (Auto) (0.00-0.10) 10^3/uL Sodium (136-145) mmol/L Potassium (3.3-5.3) mmol/L Chloride (98-115) mmol/L Carbon Dioxide (21.0-32.0) mmol/L Anion Gap (5-15) mmol/L BUN (6-25) mg/dL Creatinine (0.51-1.17) mg/dL Est Cr Clr Drug Dosing mL/min Estimated GFR (MDRD) mL/min Glucose (75 - 99) mg/dL POC Glucose 426 H 373 H 307 H (74-106) mg/dl Calcium (8.7-10.3) mg/dL B-Hydroxybutyrate (0.0-0.2) mmol/L 07/10/19 07/10/19 07/10/19 Range/Units 06:56 07:20 07:20 WBC 8.32 (5.00-10.00) 10^3/uL RBC 4.14 L (4.50-6.00) 10^6/uL Hgb 13.0 D (13.0-17.0) g/dL Hct 38.0 L (40.0-52.0) % MCV 91.8 (82.0-92.0) fL MCH 31.4 H (27.0-31.0) pg MCHC 34.2 (32.0-36.0) g/dL RDW 12.6 (11.5-14.5) % Plt Count 173 D (150-400) 10^3/uL MPV 11.8 H (7.4-10.4) fL Immature Gran % (Auto) 0.2 (0.0-5.0) % Neut % (Auto) 69.9 (50.0-70.0) % Lymph % (Auto) 21.3 (20.0-40.0) % [place] % (Auto) 6.9 (2.0-8.0) % Eos % (Auto) 1.6 (1.0-3.0) % Baso % (Auto) 0.1 (0.0-1.0) % Immature Gran # (Auto) 0.02 (0.00-0.50) 10^3/uL Neut # (Auto) 5.82 (2.50-7.00) 10^3/uL Lymph # (Auto) 1.77 (1.00-4.00) 10^3/uL [place] # (Auto) 0.57 (0.10-0.80) 10^3/uL Eos # (Auto) 0.13 (0.10-0.30) 10^3/uL Baso # (Auto) 0.01 (0.00-0.10) 10^3/uL Sodium 141 D (136-145) mmol/L Potassium 4.1 (3.3-5.3) mmol/L Chloride 101 D (98-115) mmol/L Carbon Dioxide 28.1 (21.0-32.0) mmol/L Anion Gap 16.0 H (5-15) mmol/L BUN 17 (6-25) mg/dL Creatinine 0.77 (0.51-1.17) mg/dL Est Cr Clr Drug Dosing 118.18 mL/min Estimated GFR (MDRD) > 60 mL/min Glucose 229 H (75 - 99) mg/dL POC Glucose 211 H (74-106) mg/dl Calcium 9.0 (8.7-10.3) mg/dL B-Hydroxybutyrate (0.0-0.2) mmol/L 07/10/19 Range/Units 07:45 WBC (5.00-10.00) 10^3/uL RBC (4.50-6.00) 10^6/uL Hgb (13.0-17.0) g/dL Hct (40.0-52.0) % MCV (82.0-92.0) fL MCH (27.0-31.0) pg MCHC (32.0-36.0) g/dL RDW (11.5-14.5) % Plt Count (150-400) 10^3/uL MPV (7.4-10.4) fL Immature Gran % (Auto) (0.0-5.0) % Neut % (Auto) (50.0-70.0) % Lymph % (Auto) (20.0-40.0) % [place] % (Auto) (2.0-8.0) % Eos % (Auto) (1.0-3.0) % Baso % (Auto) (0.0-1.0) % Immature Gran # (Auto) (0.00-0.50) 10^3/uL Neut # (Auto) (2.50-7.00) 10^3/uL Lymph # (Auto) (1.00-4.00) 10^3/uL [place] # (Auto) (0.10-0.80) 10^3/uL Eos # (Auto) (0.10-0.30) 10^3/uL Baso # (Auto) (0.00-0.10) 10^3/uL Sodium (136-145) mmol/L Potassium (3.3-5.3) mmol/L Chloride (98-115) mmol/L Carbon Dioxide (21.0-32.0) mmol/L Anion Gap (5-15) mmol/L BUN (6-25) mg/dL Creatinine (0.51-1.17) mg/dL Est Cr Clr Drug Dosing mL/min Estimated GFR (MDRD) mL/min Glucose (75 - 99) mg/dL POC Glucose 250 H (74-106) mg/dl Calcium (8.7-10.3) mg/dL B-Hydroxybutyrate (0.0-0.2) mmol/L Result Diagrams: 07/10/19 07:20 07/10/19 07:20 Problem List Initiated/Reviewed/Updated: Yes Orders Last 24hrs: Active Orders 24 hr Category Date Time Status Patient Status [ADT] Routine ADT 07/09/19 11:53 Active Blood Glucose Check, Bedside [RC] QIDACANDBED Care 07/09/19 11:53 Active Communication Order [RC] 0900,2100 Care 07/09/19 15:57 Active Oxygen Therapy [RC] PRN Care 07/09/19 11:53 Active Up With Assistance [RC] DAILY Care 07/09/19 11:53 Active VTE/DVT Education [] DAILY Care 07/09/19 11:53 Active Vital Signs [RC] 0300,0700,1100,1500,1900,2300 Care 07/09/19 11:53 Active [place] [employer] Diet [DIET] Diet 07/09/19 Lunch Active Acetaminophen [Tylenol] Med 07/09/19 16:25 Active 650 mg PO Q6H PRN Aspirin [Halfprin] Med 07/10/19 09:00 Active 81 mg PO DAILY Calcium Citrate/Vitamin D3 [Calcium Citrate + D] Med 07/09/19 18:00 Active 2 tab PO BIDMEALS Escitalopram [Lexapro] Med 07/10/19 09:00 Active 10 mg PO DAILY FA/Lycopene/Lut/MV,Ca,Iron,Min [Centrum] Med 07/10/19 09:00 Active 1 tab PO DAILY Fludrocortisone [Florinef] Med 07/10/19 08:00 Active 0.2 mg PO WITHBREAKFAST Losartan [Cozaar] Med 07/10/19 09:00 Active 25 mg PO DAILY Midodrine Med 07/09/19 17:00 Active 10 mg PO TIDAC Omeprazole Med 07/10/19 07:30 Active 20 mg PO ACBREAKFAST Ondansetron [Zofran ODT] Med 07/09/19 16:25 Active 4 mg PO Q6H PRN Ondansetron [Zofran] Med 07/09/19 11:53 Active 4 mg IV Q6H PRN Patient's Own Medication [Ptom] Med 07/10/19 10:00 Active 1.8 each SUBCUT DAILY Patient's Own Medication [Ptom] Med 07/10/19 09:48 Active 35 each SUBCUT BEDTIME Polyethylene Glycol 3350 [MiraLAX] Med 07/09/19 16:25 Active 17 gm PO DAILY PRN Rosuvastatin [Crestor] Med 07/10/19 09:00 Active 40 mg PO DAILY Sodium Chloride 0.9% [Normal Saline] 1,000 ml Med 07/09/19 12:00 Active IV ASDIRECTED Resuscitation Status Routine Resus Stat 07/09/19 11:53 Ordered Medication Orders Acetaminophen (Tylenol) 650 mg PO Q6H PRN PRN Reason: Pain Aspirin (Halfprin) 81 mg PO DAILY [facility] Last Admin: 07/10/19 08:11 Dose: 81 mg Calcium Citrate (Calcium Citrate + D) 2 tab PO BIDMEALS [facility] Last Admin: 07/10/19 08:11 Dose: 2 tab Admin: 07/09/19 17:22 Dose: 2 tab Escitalopram Oxalate (Lexapro) 10 mg PO DAILY [facility] Last Admin: 07/10/19 08:11 Dose: 10 mg Fludrocortisone Acetate (Florinef) 0.2 mg PO WITHBREAKFAST [facility] Last Admin: 07/10/19 08:11 Dose: 0.2 mg Sodium Chloride (Normal Saline) 1,000 mls @ 125 mls/hr IV ASDIRECTED [facility] Last Admin: 07/10/19 04:37 Dose: 125 mls/hr Infusion: 07/10/19 04:25 Dose: 125 mls/hr Admin: 07/09/19 20:25 Dose: 125 mls/hr Infusion: 07/09/19 20:25 Dose: 125 mls/hr Admin: 07/09/19 12:36 Dose: 125 mls/hr Losartan Potassium (Cozaar) 25 mg PO DAILY [facility] Last Admin: 07/10/19 08:11 Dose: 25 mg Midodrine (Midodrine) 10 mg PO TIDAC [facility] Last Admin: 07/10/19 06:28 Dose: 10 mg Admin: 07/09/19 17:00 Dose: 10 mg Multivitamins/Minerals (Centrum) 1 tab PO DAILY [facility] Last Admin: 07/10/19 08:11 Dose: 1 tab Omeprazole (Omeprazole) 20 mg PO ACBREAKFAST [facility] Last Admin: 07/10/19 06:30 Dose: 20 mg Ondansetron HCl (Zofran) 4 mg IV Q6H PRN PRN Reason: Nausea/Vomiting Ondansetron HCl (Zofran Odt) 4 mg PO Q6H PRN PRN Reason: Nausea/Vomiting Victoza (Liraglutide ) 0.6 Mg/0.1 Ml 3 Ml Pen - Ptom 1.8 each SUBCUT DAILY [facility] Last Admin: 07/10/19 09:58 Dose: 1.8 each Lantus Solostar 100 Units/Ml 3 Ml Pen - Ptom 35 each SUBCUT BEDTIME [facility] Polyethylene Glycol (Miralax) 17 gm PO DAILY PRN PRN Reason: Constipation Rosuvastatin Calcium (Crestor) 40 mg PO DAILY [facility] Last Admin: 07/10/19 08:11 Dose: 40 mg Assessment/Plan Comment:: History of present illness/Prehospital course 58 YO WM was admitted into inpatient status from the ED when he presented due to elevated blood sugar levels fatigue and lightheadedness. Patient has had multiple previous hospitalizations with various symptoms similar one point was in LTC of her weight has been discharged for the past 2-3 months now lives at home. Does have diabetes mellitus which he can easily get significant rises in blood sugars upon any viral bacterial infections. 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 He had woke up that morning with a blood sugar of ~400 and he took 10units of Humalog. He denies fever chills nausea or vomiting or any diarrhea. Home insulin regimen --GLP-1 maxed --Lantus 30u daily --Novolog 8u daily at 1800, & 10u @1200, 1800 Update, IV fluids overnight, feels better, blood sugar slowly improving, no nausea vomiting or diarrhea, no fever, Primary hospital problems Diabetes mellitus, hyperglycemia Dehydration Hyponatremia, hypotonic, resolved Viral illness, improving Disposition/plan/charge planning --Cont Inpatient status, IV fluids discontinue tonight. --Restart metformin --Increased Long acting insulin to 35u last night --Restart Home insulin regimen of novolog --Assess A1c --Reviewed/education regarding CHO counting --Anticipate need for monthly nutritional visits. - Mortality Measure Prognosis:: Good
[2019-07-10 10:34] LABS: HEMOGLOBIN A1C 12.6 % (4.3-5.7)
[2019-07-10] MEDS: NOVOLOG 100 UNIT/ML SUBCUT SCH ×4 (10:35→18:03)
[2019-07-10] MEDS: metFORMIN 500 MG Tab PO SCH ×2 (10:49→17:19)
[2019-07-11 06:29] VITALS: PULSE 86
[2019-07-11] MEDS: Midodrine 5 MG Tab PO SCH ×2 (06:47→10:39)
[2019-07-11] MEDS: Sodium Chloride 0.9% 10 ML Syringe FLUSH SCH ×2 (06:48→06:51)
[2019-07-11] MEDS: Omeprazole 20 MG Cap.CR PO SCH (06:48)
[2019-07-11] MEDS: Fludrocortisone 0.1 MG Tab PO SCH (08:11)
[2019-07-11] MEDS: metFORMIN 500 MG Tab PO SCH (08:11)
[2019-07-11] MEDS: Calcium Citrate/Vitamin D3 315 MG-250 Unit Tab PO SCH (08:11)
[2019-07-11] MEDS: NOVOLOG 100 UNIT/ML SUBCUT SCH ×2 (08:12→13:05)
[2019-07-11] MEDS: Escitalopram 10 MG Tab PO SCH (08:57)
[2019-07-11] MEDS: Aspirin 81 MG Tab.EC PO SCH (08:57)
[2019-07-11] MEDS: Multivitamins with Minerals/Iron/Folic Acid/Lycopene Tab PO SCH (08:57)
[2019-07-11] MEDS: Losartan 25 MG Tab PO SCH (08:57)
[2019-07-11] MEDS: Rosuvastatin 10 MG Tab PO SCH (08:57)
[2019-07-11 08:58] VITALS: BP 121/67
[2019-07-11] MEDS: VICTOZA 0.6 MG/0.1 ML SUBCUT SCH (09:00)
--- NOTE | 2019-07-11 09:15 | PCM.DCSUM1 ---
Discharge Summary - Hospital Course Diagnosis: Stroke: No - Discharge Data Discharge Date: 07/11/19 Discharge Disposition: Home, Self-Care 01 Condition: Good - Referral to Home Health Primary Care Physician: Mendez Hawley NP - Patient Instructions Diet: Drink 8-10+ Glasses/Day, Diabetic Diet Activity: As Tolerated Showering/Bathing: May Shower Notify Provider of: Fever, Nausea and/or Vomiting Other/Special Instructions: bring your Blood sugar logs to the clinic when you come for your appointment. - Discharge Plan *PRESCRIPTION DRUG MONITORING PROGRAM REVIEWED*: Not Applicable *COPY OF PRESCRIPTION DRUG MONITORING REPORT IN PATIENT SUDARSHAN: Not Applicable Home Medications: Home Meds Calcium Carbonate/Vitamin D3 [Calcium 600 + Vit D 400 Softgl] 1 tab PO BIDMEALS 02/27/17 [History] Omeprazole 20 mg PO ACBREAKFAST 02/27/17 [History] Polyethylene Glycol 3350 [MiraLAX] 17 gm PO DAILY PRN 02/27/17 [History] Liraglutide [Victoza] 1.8 mg SUBCUT DAILY 03/14/17 [History] Multivitamin with Minerals [Multivitamins with Minerals] 1 each PO DAILY [History] Acetaminophen [Tylenol] 650 mg PO Q6H PRN tablet 03/04/18 [Rx] Escitalopram [Lexapro] 20 mg PO DAILY #30 tab 03/17/19 [Rx] Fludrocortisone [Florinef] 0.2 mg PO WITHBREAKFAST #30 tablet 03/17/19 [Rx] Insulin Aspart [NovoLOG] 8 unit SUBCUT DAILY@1800 pen 03/17/19 [Rx] Midodrine 10 mg PO TIDAC #90 tablet 03/17/19 [Rx] Ondansetron [Zofran ODT] 4 mg PO Q6H PRN tab.dis 03/17/19 [Rx] Aspirin [Halfprin] 81 mg PO DAILY 07/09/19 [History] Insulin Aspart [NovoLOG] 10 unit SUBCUT BID@0800,1200 07/09/19 [History] Losartan Potassium 25 mg PO DAILY 07/09/19 [History] Rosuvastatin Calcium 40 mg PO DAILY 07/09/19 [History] metFORMIN HCl [Metformin HCl] 1,000 mg PO BIDMEALS 07/09/19 [History] Insulin Glarg,Human.Rec.Analog [Lantus Solostar] 35 unit SUBCUT BEDTIME #0 07/11 [Rx] Forms: ED Department Discharge Referrals: Mendez Hawley, TH[facility]ER [Primary Care Provider] - - Discharge Summary/Plan Comment DC Time >30 min.: Yes Discharge Summary/Plan Comment: Final Diagnosis Diabetes mellitus, hyperglycemia, improving however uncontrolled Dehydration, improving Hyponatremia, hypotonic, resolved Viral illness, improving History summary Bernardo is a 58-year-old patient with diabetes type 2 into the ED due to elevated blood glucose hyperglycemia along with fatigue and lightheadedness and vomiting. She lives at home and states he has been monitoring his blood glucose is quite accurately however he has had problems with elevated blood sugar any snacks considerable amount of time and needs constant reinforcement guarding his dietary restrictions. 3 months ago he was released from a long-term care center which he did quite well all he was there and he's been home since March. He came into the ED he was complaining of nausea and vomiting twice that morning. He had woke up with a blood sugar of ~400 which he took 10units of Humalog. His home insulin regimen includes max dose GLP-1, Lantus 30u daily, Novolog 8u daily at 1800, & 10u @1200, 1800 Hospital course His hospital course was quite uneventful, he was significantly dehydrated on admission requiring IV fluids. He was becoming euvolemic upon discharge. Never had a temperature. Creases Lantus to 35 units. I reviewed his dietary choices on the min use for breakfast which he chose a 4 carb choices. He was given multiple rounds of NovoLog, metformin was held on the first day of admission due to dehydration. Blood sugar improved steadily. Her swing staff reviewed education regarding carbohydrate counting. Globin A1c in the hospital 4.6 was corresponds to approximately blood glucose 315. Medication changes/adjustments upon discharge Increase Lantus from 30 to 35 units Continue with GLP-1, Novolog 8u daily at 1800, & 10u @1200, 1800 Disposition/plan --Patient will be discharged from the hospital --Nutritional counseling monthly, consult placed --We'll work with patient and family regarding simplifying treatment regimen, consider weekly injections, consider adjunctive SGLT2. --Patient does not have that cognitive mentation to self manage his diabetes mellitus, consider permanent long-term care, may have to apply for disability - Review of Systems General: Reports: No Symptoms HEENT: Reports: No Symptoms Pulmonary: Reports: No Symptoms Cardiovascular: Reports: No Symptoms Gastrointestinal: Reports: No Symptoms - Patient Data Vitals - Most Recent: Last Vital Signs Temp 97.5 F 07/11/19 06:29 Pulse 86 07/11/19 06:29 Resp 16 07/11/19 06:29 BP 121/67 07/11/19 08:57 Pulse Ox 95 07/11/19 06:29 Orthostatic Blood Pressure [ 106/66 Standing] Orthostatic Blood Pressure [ 123/77 Sitting] Orthostatic Blood Pressure [ 126/75 Supine] Weight - Most Recent: 269 lb 9.6 oz I&O - Last 24 hours: Intake & Output 07/10/19 07/11/19 07/11/19 22:59 06:59 14:59 Intake Total 1110 250 Output Total 600 900 Balance 510 -650 Lab Results - Last 24 hrs: Laboratory Results - last 24 hr 07/10/19 07/10/19 07/10/19 Range/Units 07:20 11:31 17:49 POC Glucose 318 H 203 H (74-106) mg/dl Hemoglobin A1c 12.6 H (4.3-5.7) % 07/10/19 07/11/19 Range/Units 20:31 07:48 POC Glucose 117 H 226 H (74-106) mg/dl Hemoglobin A1c (4.3-5.7) % Med Orders - Current: Current Medications Acetaminophen (Tylenol) 650 mg PO Q6H PRN PRN Reason: Pain Last Admin: 07/10/19 13:48 Dose: 650 mg Aspirin (Halfprin) 81 mg PO DAILY [facility] Last Admin: 07/11/19 08:57 Dose: 81 mg Calcium Citrate (Calcium Citrate + D) 2 tab PO BIDMEALS [facility] Last Admin: 07/11/19 08:11 Dose: 2 tab Escitalopram Oxalate (Lexapro) 10 mg PO DAILY [facility] Last Admin: 07/11/19 08:57 Dose: 10 mg Fludrocortisone Acetate (Florinef) 0.2 mg PO WITHBREAKFAST [facility] Last Admin: 07/11/19 08:11 Dose: 0.2 mg Losartan Potassium (Cozaar) 25 mg PO DAILY [facility] Last Admin: 07/11/19 08:57 Dose: 25 mg Metformin HCl (Glucophage) 1,000 mg PO BIDMEALS [facility] Last Admin: 07/11/19 08:11 Dose: 1,000 mg Midodrine (Midodrine) 10 mg PO TIDAC [facility] Last Admin: 07/11/19 06:47 Dose: 10 mg Multivitamins/Minerals (Centrum) 1 tab PO DAILY [facility] Last Admin: 07/11/19 08:57 Dose: 1 tab Omeprazole (Omeprazole) 20 mg PO ACBREAKFAST [facility] Last Admin: 07/11/19 06:48 Dose: 20 mg Ondansetron HCl (Zofran) 4 mg IV Q6H PRN PRN Reason: Nausea/Vomiting Ondansetron HCl (Zofran Odt) 4 mg PO Q6H PRN PRN Reason: Nausea/Vomiting Victoza (Liraglutide ) 0.6 Mg/0.1 Ml 3 Ml Pen - Ptom 1.8 each SUBCUT DAILY [facility] Last Admin: 07/11/19 09:00 Dose: 1.8 each Lantus Solostar 100 Units/Ml 3 Ml Pen - Ptom 35 each SUBCUT BEDTIME [facility] Last Admin: 07/10/19 20:33 Dose: 35 each Novolog (Insulin Aspart) 100 Units/Ml 3 Ml Pen - Ptom 8 each SUBCUT DAILY@1800 [facility] Last Admin: 07/10/19 18:03 Dose: 8 each Novolog (Insulin Aspart) 100 Units/Ml 3 Ml Pen - Ptom 10 each SUBCUT BID@0800, 1200 [facility] Last Admin: 07/11/19 08:12 Dose: 10 each Polyethylene Glycol (Miralax) 17 gm PO DAILY PRN PRN Reason: Constipation Rosuvastatin Calcium (Crestor) 40 mg PO DAILY [facility] Last Admin: 07/11/19 08:57 Dose: 40 mg Sodium Chloride (Saline Flush) 10 ml FLUSH Q8HR [facility] Last Admin: 07/11/19 06:51 Dose: 10 ml Discontinued Medications Sodium Chloride (Normal Saline) 1,000 mls @ 999 mls/hr IV .BOLUS ONE Stop: 07/09/19 11:42 Last Admin: 07/09/19 10:57 Dose: 999 mls/hr Sodium Chloride (Normal Saline) 1,000 mls @ 125 mls/hr IV ASDIRECTED [facility] Stop: 07/10/19 18:00 Last Admin: 07/10/19 12:09 Dose: 125 mls/hr Insulin Aspart (Novolog) 12 unit SUBCUT ONETIME ONE Stop: 07/09/19 11:52 Last Admin: 07/09/19 12:00 Dose: 12 unit Insulin Aspart (Novolog) 10 unit SUBCUT ONETIME ONE Stop: 07/09/19 17:55 Last Admin: 07/09/19 18:04 Dose: 10 units Insulin Aspart (Novolog) 10 unit SUBCUT ONETIME ONE Stop: 07/10/19 08:01 Last Admin: 07/10/19 08:12 Dose: 10 unit Insulin Glargine (Lantus Solostar) 35 units SUBCUT BEDTIME [facility] Last Admin: 07/09/19 21:00 Dose: 35 units Insulin Human Regular (Novolin R) 12 unit SUBCUT ONETIME ONE; Protocol Stop: 07/09/19 11:46 Last Admin: 07/09/19 11:52 Dose: Not Given Liraglutide (Victoza) 1.8 mg SUBCUT DAILY [facility] Last Admin: 07/10/19 09:47 Dose: Not Given Ondansetron HCl (Zofran) 4 mg IVPUSH ONETIME ONE Stop: 07/09/19 11:28 Last Admin: 07/09/19 11:31 Dose: 4 mg Ondansetron HCl (Zofran) Confirm Administered Dose 4 mg .ROUTE .STK-MED ONE Stop: 07/09/19 11:29 Last Admin: 07/09/19 11:30 Dose: Not Given Lantus Solostar 100 Units/Ml 3 Ml Pen - Ptom 35 each SUBCUT BEDTIME [facility] Sodium Chloride (Saline Flush) 10 ml FLUSH Q8HR PRN PRN Reason: keep vein open Last Admin: 07/09/19 11:14 Dose: 10 ml - Exam Quality Assessment: Denies: Supplemental Oxygen General: Reports: Alert, Oriented Lungs: Reports: Clear to Auscultation, Normal Respiratory Effort Cardiovascular: Reports: Regular Rate Extremities: No Pedal Edema
== END 2019-07-11 13:08 | disposition home or self-care (01) | DRG 638 ==
LOC: KA.ED 10:25 → KA.MS 11:53
PROVIDERS: ADMIT Physician Assistant Medical; ATTEND Nurse Practitioner Family
DX: E11.00 Type 2 diabetes mellitus with hyperosmolarity without nonketotic hyperglycemic-hyperosmolar coma (NKHHC) (principal); E87.1 Hypo-osmolality and hyponatremia; B34.9 Viral infection, unspecified; H54.7 Unspecified visual loss; E78.00 Pure hypercholesterolemia, unspecified; I95.9 Hypotension, unspecified; I12.9 Hypertensive chronic kidney disease with stage 1 through stage 4 chronic kidney disease, or unspecified chronic kidney disease; N18.9 Chronic kidney disease, unspecified; K21.9 Gastro-esophageal reflux disease without esophagitis; E11.22 Type 2 diabetes mellitus with diabetic chronic kidney disease; E11.42 Type 2 diabetes mellitus with diabetic polyneuropathy; G62.9 Polyneuropathy, unspecified; F41.9 Anxiety disorder, unspecified; F32.9 Major depressive disorder, single episode, unspecified; E66.9 Obesity, unspecified; Z90.49 Acquired absence of other specified parts of digestive tract; Z88.1 Allergy status to other antibiotic agents; Z88.2 Allergy status to sulfonamides; Z89.412 Acquired absence of left great toe; Z79.899 Other long term (current) drug therapy; Z79.4 Long term (current) use of insulin; Z79.82 Long term (current) use of aspirin; Z68.35 Body mass index [BMI] 35.0-35.9, adult
CPT/HCPCS: 36415; 80048; 82010; 82962; 83036; 85025; 96361; 96372; 96374; 99285-25; A9270-GY; J1815-GY; J2405; J3490; J7030

== ENCOUNTER 2019-08-29 14:50 | Emergency (ER) | payer MEDICAID ==
--- NOTE | 2019-08-29 15:20 | EDM.PDOC ---
ED HPI GENERAL MEDICAL PROBLEM - General Chief Complaint: Laceration Stated Complaint: scalp laceration Time Seen by Provider: 08/29/19 14:55 Source of Information: Reports: Patient History Limitations: Reports: No Limitations - History of Present Illness INITIAL COMMENTS - FREE TEXT/NARRATIVE: 58 YO WM presents to ER with laceration to scalp after trip and fall at home. Pt reports he tripped over a garden shovel and fell forward into a chain link fence causing a 10cm laceration to right parietal scalp. Pt denies headache, neck pain, dizziness or nausea/vomiting. Pt reports he was able to control bleeding with direct pressure to wound. Pt able to ambulate into ER without difficulty. Onset: Today Location: Reports: Head Quality: Reports: Ache Severity: Mild Improves with: Reports: None Worsens with: Reports: None Associated Symptoms: Reports: No Other Symptoms. Denies: Confusion, Headaches, Nausea/Vomiting, Seizure, Syncope Lower Head Pain Score (Numeric/FACES): 6 - Related Data Allergies Allergy/AdvReac Type Severity Reaction Status Date / Time vancomycin Allergy Intermediate Rash Verified 08/29/19 15:11 Sulfa (Sulfonamide Allergy Shortness Verified 08/29/19 15:11 Antibiotics) of Breath Home Meds: Home Meds Calcium Carbonate/Vitamin D3 [Calcium 600 + Vit D 400 Softgl] 1 tab PO BIDMEALS 02/27/17 [History] Omeprazole 20 mg PO ACBREAKFAST 02/27/17 [History] Polyethylene Glycol 3350 [MiraLAX] 17 gm PO DAILY PRN 02/27/17 [History] Multivitamin with Minerals [Multivitamins with Minerals] 1 each PO DAILY [History] Acetaminophen [Tylenol] 650 mg PO Q6H PRN tablet 03/04/18 [Rx] Escitalopram [Lexapro] 20 mg PO DAILY #30 tab 03/17/19 [Rx] Fludrocortisone [Florinef] 0.2 mg PO WITHBREAKFAST #30 tablet 03/17/19 [Rx] Insulin Aspart [NovoLOG] 8 unit SUBCUT DAILY@1800 pen 03/17/19 [Rx] Midodrine 10 mg PO TIDAC #90 tablet 03/17/19 [Rx] Ondansetron [Zofran ODT] 4 mg PO Q6H PRN tab.dis 03/17/19 [Rx] Aspirin [Halfprin] 81 mg PO DAILY 07/09/19 [History] Insulin Aspart [NovoLOG] 10 unit SUBCUT BID@0800,1200 07/09/19 [History] Losartan Potassium 25 mg PO DAILY 07/09/19 [History] Rosuvastatin Calcium 40 mg PO DAILY 07/09/19 [History] metFORMIN HCl [Metformin HCl] 1,000 mg PO BIDMEALS 07/09/19 [History] Insulin Glargine/Lixisenatide [Soliqua 100 Unit-33 Mcg/ml Pen] 30 units SQ DAILY 08/29/19 [History] Past Medical History HEENT History: Reports: Impaired Vision Cardiovascular History: Reports: High Cholesterol, Hypertension Other Cardiovascular History: Orthostatic Hypotension Respiratory History: Reports: None Gastrointestinal History: Reports: GERD Genitourinary History: Reports: Chronic Renal Insuffiency Musculoskeletal History: Reports: Amputation Other Musculoskeletal History: 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 Neurological History: Reports: Neuropathy, Diabetic Psychiatric History: Reports: Anxiety, Depression, Panic Attack Endocrine/Metabolic History: Reports: Diabetes, Type II, IDDM, Obesity/BMI 30+ Hematologic History: Reports: None Immunologic History: Reports: None Oncologic (Cancer) History: Reports: None Dermatologic History: Reports: Cellulitis - Infectious Disease History Infectious Disease History: Reports: Chicken Pox, MRSA - Past Surgical History HEENT Surgical History: Reports: None Cardiovascular Surgical History: Reports: None Respiratory Surgical History: Reports: None GI Surgical History: Reports: Appendectomy, Cholecystectomy, Colonoscopy Endocrine Surgical History: Reports: None Neurological Surgical History: Reports: None Musculoskeletal Surgical History: Reports: Amputation, Arthroscopic Knee Dermatological Surgical History: Reports: None Social & Family History - Family History Family Medical History: Noncontributory HEENT: Reports: None Cardiac: Reports: None Respiratory: Reports: None GI: Reports: None : Reports: None OBGYN: Reports: None Musculoskeletal: Reports: None Neurological: Reports: None Psychiatric: Reports: None Endocrine/Metabolic: Reports: Diabetes, type II Hematologic: Reports: None Immunologic: Reports: None Dermatologic: Reports: None Oncologic: Reports: Prostate - Caffeine Use Caffeine Use: Reports: Soda Other Caffeine Use: Diet Coke Caffeine Use Comment: 1-2 per day ED ROS GENERAL - Review of Systems Review Of Systems: See Below Constitutional: Reports: No Symptoms HEENT: Reports: No Symptoms Respiratory: Reports: No Symptoms Cardiovascular: Reports: No Symptoms Endocrine: Reports: No Symptoms GI/Abdominal: Reports: No Symptoms : Reports: No Symptoms Musculoskeletal: Reports: No Symptoms Skin: Reports: Wound (10cm laceration to right parietal scalp) Neurological: Reports: No Symptoms Psychiatric: Reports: No Symptoms Hematologic/Lymphatic: Reports: No Symptoms Immunologic: Reports: No Symptoms ED EXAM, SKIN/RASH Exam: See Below Exam Limited By: No Limitations General Appearance: Alert, WD/WN, No Apparent Distress Eye Exam: Bilateral Eye: EOMI, PERRL Nose: Normal Inspection, Normal Mucosa, No Blood Throat/Mouth: Normal Inspection, Normal Lips, Normal Teeth, Normal Gums, Normal Oropharynx, Normal Voice, No Airway Compromise Head: Normocephalic. No: Atraumatic Neck: Normal Inspection, Supple, Non-Tender, Full Range of Motion Respiratory/Chest: No Respiratory Distress, Lungs Clear, Normal Breath Sounds, No Accessory Muscle Use, Chest Non-Tender Cardiovascular: Normal Peripheral Pulses, Regular Rate, Rhythm, No Edema, No Gallop, No JVD, No Murmur, No Rub GI/Abdominal: Normal Bowel Sounds, Soft, Non-Tender, No Organomegaly, No Distention, No Abnormal Bruit, No Mass Back Exam: Normal Inspection, Full Range of Motion, NT Extremities: Normal Inspection, Normal Range of Motion, Non-Tender, No Pedal Edema, Normal Capillary Refill Neurological: Alert, Oriented, CN II-XII Intact, Normal Cognition, Normal Gait, Normal Reflexes, No Motor/Sensory Deficits Psychiatric: Normal Affect, Normal Mood Skin: Wound/Incision (10cm laceration to right parietal scalp) Location, Skin: Head Lymphatic: No Adenopathy ED SKIN PROCEDURES - Laceration/Wound Repair Right Lateral Appearance: Superficial, Subcutaneous Distal NVT: Neuro & Vascular Intact Skin Prep: Providone-Iodine (Betadine), Saline Exploration/Debridement/Repair: Wound Explored Closed with: [place] Lac/Wound length In cm: 10 # of Sutures: 7 Tetanus Status Addressed: Yes Complications: No Course - Vital Signs Last Recorded V/S: Last Vital Signs Temp 37.0 C 08/29/19 15:07 Pulse 89 08/29/19 15:07 Resp 18 08/29/19 15:07 BP 157/70 H 08/29/19 15:07 Pulse Ox 92 L 08/29/19 15:07 Departure - Departure Time of Disposition: 15:26 Disposition: Home, Self-Care 01 Condition: Good Clinical Impression: Laceration of scalp Qualifiers: Encounter type: initial encounter Qualified Code(s): S01.01XA - Laceration without foreign body of scalp, initial encounter Minor head injury Qualifiers: Encounter type: initial encounter Qualified Code(s): S09.90XA - Unspecified injury of head, initial encounter - Discharge Information Instructions: Laceration Care, Adult, [id number], Head Injury, Adult, Easy-to -Read Referrals: Ginger Pride MD [Primary Care Provider] - Additional Instructions: 1. discharge home 2. head injury precautions given 3. wound care instructions given 4. staple removal 7-10 days 5. return to ER for worsening symptoms - Assessment/Plan Assessment:: 1. 10cm laceration to right parietal scalp Plan: 1. discharge home 2. head injury precautions given 3. wound care instructions given 4. staple removal 7-10 days 5. return to ER for worsening symptoms
[2019-08-29] MEDS ORDERED: Diphtheria,Pertussis(Acell),Tetanus Vaccine 0.5 ML SDV IM ONE (15:24)
[2019-08-29 15:32] VITALS: BP 148/67; PULSE 84
--- NOTE | 2019-08-29 16:26 | CT ---
[id number] CT/CT Head WO IV EXAM: NONCONTRAST HEAD CT INDICATION: Head injury with dizziness and headache. COMPARISON: March 24, 2019. DISCUSSION: The ventricles and sulci are normal in size and configuration. The rivera and white matter are normal in attenuation. No mass effect or midline shift. No acute hemorrhage or extra-axial fluid collection. No acute territorial infarct is identified. Mild to moderate paranasal sinus mucosal thickening. Right anterior scalp laceration post stable repair. IMPRESSION: 1. No evidence of acute intracranial trauma. Woo Gastelum MD 08/29/19 [id number] Thank you for allowing us to participate in the care of your patient.
== END 2019-08-29 16:30 | disposition home or self-care (01) ==
LOC: KA.ED 14:50
DX: S01.01XA Laceration without foreign body of scalp, initial encounter (principal); I12.9 Hypertensive chronic kidney disease with stage 1 through stage 4 chronic kidney disease, or unspecified chronic kidney disease; N18.9 Chronic kidney disease, unspecified; E78.00 Pure hypercholesterolemia, unspecified; K21.9 Gastro-esophageal reflux disease without esophagitis; E11.40 Type 2 diabetes mellitus with diabetic neuropathy, unspecified; F41.9 Anxiety disorder, unspecified; F32.9 Major depressive disorder, single episode, unspecified; E66.9 Obesity, unspecified; Z68.34 Body mass index [BMI] 34.0-34.9, adult; Z23 Encounter for immunization; Z88.1 Allergy status to other antibiotic agents; Z88.2 Allergy status to sulfonamides; Z79.4 Long term (current) use of insulin; Z79.82 Long term (current) use of aspirin; Z79.899 Other long term (current) drug therapy; W01.198A Fall on same level from slipping, tripping and stumbling with subsequent striking against other object, initial encounter; Y92.009 Unspecified place in unspecified non-institutional (private) residence as the place of occurrence of the external cause
CPT/HCPCS: 12004; 70450; 90471; 90715; 99283-25

== ENCOUNTER 2020-07-26 03:15 | Emergency (ER) | payer MEDICARE, OTHER, MEDICAID ==
[2020-07-26] MEDS ORDERED: Glucose Gel 15 GM in 37.5 GM Tube PO ONE (03:28)
[2020-07-26] MEDS ORDERED: Glucose Gel 15 GM in 37.5 GM Tube ONE (03:29)
--- NOTE | 2020-07-26 03:29 | EDM.PDOC ---
ED HPI GENERAL MEDICAL PROBLEM - General Chief Complaint: General Stated Complaint: hypoglycemia Time Seen by Provider: 07/26/20 03:30 Source of Information: Reports: Patient (03) History Limitations: Reports: No Limitations - History of Present Illness INITIAL COMMENTS - FREE TEXT/NARRATIVE: Presents emergency room by ambulance for syncopal episode at home. Patient was leaving his bathroom at [address] back to the room, he became very weak and dizzy hit his face on the side of the wall and then fell face forward onto the carpet. He turned on his side and laid there for 3 hours and exactly one spot, while he continuously voiced called for his sister who lives below him, who eventually woke up at 2:00 this morning. On arrival the patient was found to have a blood glucose level 42. He notes when he checked his blood sugar prior to bedtime it was in the 50s despite that he still took his Lantus and NovoLog. He does have history of type 2 diabetes with complications involving toe amputations on left side. Denies any recent infection or illness symptoms. Denies any chest pain shortness of breath or palpitations. Currently patient has bilateral arm pain which complains of stiffness and weakness to his bilateral arms. He does have a skin abrasion/carpet burn on his forehead and tip of his nose from the fall. - Related Data Allergies Allergy/AdvReac Type Severity Reaction Status Date / Time vancomycin Allergy Intermediate Rash Verified 07/26/20 03:35 Sulfa (Sulfonamide Allergy Shortness Verified 07/26/20 03:35 Antibiotics) of Breath Home Meds: Home Meds Calcium Carbonate/Vitamin D3 [Calcium 600 + Vit D 400 Softgl] 1 tab PO 0800,1800 02/27/17 [History] Omeprazole 20 mg PO 0800 02/27/17 [History] Polyethylene Glycol 3350 [MiraLAX] 17 gm PO DAILY PRN 02/27/17 [History] Multivitamin with Minerals [Multivitamins with Minerals] 1 each PO DAILY 01/22/18 [History] Acetaminophen [Tylenol] 650 mg PO Q6H PRN tablet 03/04/18 [Rx] Escitalopram [Lexapro] 20 mg PO DAILY #30 tab 03/17/19 [Rx] Fludrocortisone [Florinef] 0.2 mg PO WITHBREAKFAST #30 tablet 03/17/19 [Rx] Ondansetron [Zofran ODT] 4 mg PO Q6H PRN tab.dis 03/17/19 [Rx] Aspirin [Halfprin] 81 mg PO DAILY 07/09/19 [History] Insulin Aspart [NovoLOG] 10 unit SUBCUT BID@1200,1800 07/09/19 [History] Losartan Potassium 25 mg PO DAILY 07/09/19 [History] metFORMIN HCl [Metformin HCl] 1,000 mg PO 0800,1800 07/09/19 [History] Insulin Glargine/Lixisenatide [Soliqua 100 Unit-33 Mcg/ml Pen] 35 units SQ BEDTIME 08/29/19 [History] Insulin Aspart [NovoLOG] 8 unit SUBCUT DAILY@0800 07/26/20 [History] Midodrine 10 mg PO 0700,1200,1800 07/26/20 [History] Rosuvastatin Calcium [Crestor] 40 mg PO DAILY 07/26/20 [History] glipiZIDE [Glipizide ER] 5 mg PO DAILY 07/26/20 [History] Past Medical History HEENT History: Reports: Impaired Vision Cardiovascular History: Reports: High Cholesterol, Hypertension Other Cardiovascular History: Orthostatic Hypotension Respiratory History: Reports: None Gastrointestinal History: Reports: GERD Genitourinary History: Reports: Chronic Renal Insuffiency Musculoskeletal History: Reports: Amputation Other Musculoskeletal History: 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 Neurological History: Reports: Neuropathy, Diabetic Psychiatric History: Reports: Anxiety, Depression, Panic Attack Endocrine/Metabolic History: Reports: Diabetes, Type II, IDDM, Obesity/BMI 30+ Hematologic History: Reports: None Immunologic History: Reports: None Oncologic (Cancer) History: Reports: None Dermatologic History: Reports: Cellulitis - Infectious Disease History Infectious Disease History: Reports: Chicken Pox, MRSA - Past Surgical History HEENT Surgical History: Reports: None Cardiovascular Surgical History: Reports: None Respiratory Surgical History: Reports: None GI Surgical History: Reports: Appendectomy, Cholecystectomy, Colonoscopy Endocrine Surgical History: Reports: None Neurological Surgical History: Reports: None Musculoskeletal Surgical History: Reports: Amputation, Arthroscopic Knee Dermatological Surgical History: Reports: None Social & Family History - Family History Family Medical History: Noncontributory HEENT: Reports: None Cardiac: Reports: None Respiratory: Reports: None GI: Reports: None : Reports: None OBGYN: Reports: None Musculoskeletal: Reports: None Neurological: Reports: None Psychiatric: Reports: None Endocrine/Metabolic: Reports: Diabetes, type II Hematologic: Reports: None Immunologic: Reports: None Dermatologic: Reports: None Oncologic: Reports: Prostate - Caffeine Use Caffeine Use: Reports: Soda Other Caffeine Use: Diet Coke Caffeine Use Comment: 1-2 per day ED ROS GENERAL - Review of Systems Review Of Systems: See Below Constitutional: Reports: Weakness HEENT: Reports: No Symptoms Respiratory: Reports: No Symptoms. Denies: Shortness of Breath Cardiovascular: Reports: No Symptoms. Denies: Chest Pain Endocrine: Reports: Low Glucose GI/Abdominal: Reports: No Symptoms. Denies: Abdominal Pain, Diarrhea, Vomiting Musculoskeletal: Reports: Arm Pain. Denies: Neck Pain, Back Pain Neurological: Reports: Dizziness, Tingling Psychiatric: Reports: No Symptoms Hematologic/Lymphatic: Reports: No Symptoms ED EXAM, GENERAL - Physical Exam Exam: See Below Exam Limited By: No Limitations General Appearance: Alert, WD/WN, No Apparent Distress Eye Exam: Bilateral Eye: EOMI, PERRL Ears: Normal External Exam, Normal Canal, Normal TMs Nose: Normal Inspection, Normal Mucosa Throat/Mouth: Normal Inspection, Normal Lips, Normal Oropharynx Head: Atraumatic, Normocephalic Neck: Normal Inspection, Supple, Non-Tender, Full Range of Motion Respiratory/Chest: No Respiratory Distress, Lungs Clear, Normal Breath Sounds, No Accessory Muscle Use Cardiovascular: Normal Peripheral Pulses, Regular Rate, Rhythm, No Murmur Peripheral Pulses: 2+: Radial (L), Radial (R) GI/Abdominal: Soft, Non-Tender, Other (Obese) Back Exam: Normal Inspection, Full Range of Motion Extremities: Normal Range of Motion, Non-Tender, No Pedal Edema, Normal Capillary Refill, Other Neurological: Alert, Oriented, CN II-XII Intact, Normal Cognition, No Motor/Sensory Deficits Psychiatric: Normal Affect, Normal Mood Skin Exam: Warm, Dry, Intact EKG INTERPRETATION EKG Date: 07/26/20 Time: 04:24 Rhythm: NSR [place]: Normal P-Wave: Present QRS: Normal ST-T: Normal QT: Normal Course - Vital Signs Last Recorded V/S: Last Vital Signs Temp 96.9 F 07/26/20 03:20 Pulse 81 07/26/20 06:00 Resp 16 07/26/20 06:00 BP 153/86 H 07/26/20 06:00 Pulse Ox 96 07/26/20 06:00 - Orders/Labs/Meds Orders: Active Orders 24 hr Category Date Time Status Admission Status [Patient Status] [ADT] Routine ADT 07/26/20 04:37 Active MYOGLOBIN, URINE Routine Lab 07/26/20 19:30 Received EKG 12 Lead [EK] Stat Ther 07/26/20 03:30 Ordered Labs: Laboratory Tests 07/26/20 07/26/20 07/26/20 Range/Units 03:40 03:40 03:40 WBC 17.77 H (5.00-10.00) 10^3/uL RBC 4.14 L (4.50-6.00) 10^6/uL Hgb 13.2 (13.0-17.0) g/dL Hct 39.0 L (40.0-52.0) % MCV 94.2 H (82.0-92.0) fL MCH 31.9 H (27.0-31.0) pg MCHC 33.8 (32.0-36.0) g/dL RDW 13.3 (11.5-14.5) % Plt Count 300 D (150-400) 10^3/uL MPV 10.5 H (7.4-10.4) fL Immature Gran % (Auto) 0.3 (0.0-5.0) % Neut % (Auto) 84.1 H (50.0-70.0) % Lymph % (Auto) 9.8 L (20.0-40.0) % [place] % (Auto) 5.3 (2.0-8.0) % Eos % (Auto) 0.4 L (1.0-3.0) % Baso % (Auto) 0.1 (0.0-1.0) % Neut # (Auto) 14.93 H (2.50-7.00) 10^3/uL Lymph # (Auto) 1.75 (1.00-4.00) 10^3/uL [place] # (Auto) 0.95 H (0.10-0.80) 10^3/uL Eos # (Auto) 0.07 L (0.10-0.30) 10^3/uL Baso # (Auto) 0.02 (0.00-0.10) 10^3/uL Immature Gran # (Auto) 0.05 (0.00-0.50) 10^3/uL Sodium 139 (136-145) mmol/L Potassium 3.4 (3.3-5.3) mmol/L Chloride 102 (98-115) mmol/L Carbon Dioxide 25.4 (21.0-32.0) mmol/L Anion Gap 15.0 (5-15) mmol/L BUN 19 (6-25) mg/dL Creatinine 0.71 (0.51-1.17) mg/dL Est Cr Clr Drug Dosing TNP Estimated GFR (MDRD) > 60 mL/min Glucose 87 (75 - 99) mg/dL POC Glucose (74-100) mg/dL Lactic Acid 1.7 (0.4-2.0) mmol/L Calcium 8.6 L (8.7-10.3) mg/dL Total Bilirubin 0.9 (0.2-1.0) mg/dL AST 31 (15-37) U/L ALT 26 (12-78) U/L Alkaline Phosphatase 96 (46-116) IU/L Creatine Kinase 409 H* (26-276) U/L Total Protein 7.8 (6.4-8.2) g/dL Albumin 3.89 (3.00-4.80) g/dL SARS CoV-2 RNA Rapid GO (NEGATIVE) 07/26/20 07/26/20 07/26/20 Range/Units 05:10 06:40 08:02 WBC (5.00-10.00) 10^3/uL RBC (4.50-6.00) 10^6/uL Hgb (13.0-17.0) g/dL Hct (40.0-52.0) % MCV (82.0-92.0) fL MCH (27.0-31.0) pg MCHC (32.0-36.0) g/dL RDW (11.5-14.5) % Plt Count (150-400) 10^3/uL MPV (7.4-10.4) fL Immature Gran % (Auto) (0.0-5.0) % Neut % (Auto) (50.0-70.0) % Lymph % (Auto) (20.0-40.0) % [place] % (Auto) (2.0-8.0) % Eos % (Auto) (1.0-3.0) % Baso % (Auto) (0.0-1.0) % Neut # (Auto) (2.50-7.00) 10^3/uL Lymph # (Auto) (1.00-4.00) 10^3/uL [place] # (Auto) (0.10-0.80) 10^3/uL Eos # (Auto) (0.10-0.30) 10^3/uL Baso # (Auto) (0.00-0.10) 10^3/uL Immature Gran # (Auto) (0.00-0.50) 10^3/uL Sodium 138 (136-145) mmol/L Potassium 3.4 (3.3-5.3) mmol/L Chloride 103 (98-115) mmol/L Carbon Dioxide 26.3 (21.0-32.0) mmol/L Anion Gap 12.1 (5-15) mmol/L BUN 15 (6-25) mg/dL Creatinine 0.63 (0.51-1.17) mg/dL Est Cr Clr Drug Dosing 142.68 Estimated GFR (MDRD) > 60 mL/min Glucose 144 H (75 - 99) mg/dL POC Glucose 117 H (74-100) mg/dL Lactic Acid (0.4-2.0) mmol/L Calcium 8.0 L (8.7-10.3) mg/dL Total Bilirubin 1.1 H (0.2-1.0) mg/dL AST 36 (15-37) U/L ALT 28 (12-78) U/L Alkaline Phosphatase 94 (46-116) IU/L Creatine Kinase 693 H* (26-276) U/L Total Protein 6.9 (6.4-8.2) g/dL Albumin 3.36 (3.00-4.80) g/dL SARS CoV-2 RNA Rapid GO Negative (NEGATIVE) Meds: Medications Discontinued Medications Generic Name Dose Route Start Last Admin Trade Name Freq PRN Reason Stop Dose Admin Dextrose 15 gm 07/26/20 03:28 07/26/20 03:25 Glutose 15 PO 07/26/20 03:29 15 gm ONETIME ONE Administration Dextrose Confirm 07/26/20 03:29 07/26/20 03:36 Glutose 15 Administered 07/26/20 03:30 Not Given Dose 15 gm .ROUTE .STK-MED ONE Sodium Chloride Confirm 07/26/20 04:16 07/26/20 04:35 Normal Saline Administered 07/26/20 04:17 Not Given Dose 1,000 mls @ as directed .ROUTE .STK-MED ONE Sodium Chloride 1,000 mls @ 999 mls/hr 07/26/20 04:19 07/26/20 04:20 Normal Saline IV 07/26/20 05:19 999 mls/hr .BOLUS ONE Administration Sodium Chloride 1,000 mls @ 150 mls/hr 07/26/20 04:45 07/26/20 05:30 Normal Saline IV 150 mls/hr ASDIRECTED RUSLAN Administration - Re-Assessments/Exams Free Text/Narrative Re-Assessment/Exam: Labs ordered repeat fingerstick glucose it was in the 70s. Patient is alert and orientated he does have some dizziness bilateral upper and lower arm stiffness and tingling. CK came back in the 400s. With leukocytosis. 07/26/20 04:[address] [place], patient be given IV fluids repeat CK at 8:00. monitor blood glucose every hour 07/26/20 0438 Patient does have rhabdomyolysis I did consider compartment syndrome as another differential diagnosis. He does have some bilateral lower forearm pain. Strong palpable radial pulses +2 cap refill less than 3 seconds he does have some tingling to his fingertips. He does not have pain out of proportion and no pallor. Departure - Departure Time of Disposition: 04:33 Disposition: Admitted As Inpatient 66 Condition: Fair Clinical Impression: Hypoglycemia Rhabdomyolysis Qualifiers: Rhabdomyolysis type: traumatic Encounter type: initial encounter Qualified Code(s): T79.6XXA - Traumatic ischemia of muscle, initial encounter - Discharge Information *PRESCRIPTION DRUG MONITORING PROGRAM REVIEWED*: No *COPY OF PRESCRIPTION DRUG MONITORING REPORT IN PATIENT SUDARSHAN: No Referrals: Mendez Hawley, PROFESSOR/NURSE ANESTHETIST [Primary Care Provider] - Forms: ED Department Discharge Sepsis Event Note (ED) - Focused Exam Vital Signs: Vital Signs Temp Pulse Resp BP Pulse Ox 07/26/20 06:00 81 16 153/86 H 96 07/26/20 05:30 84 18 160/87 H 96 07/26/20 05:00 84 18 140/87 96 07/26/20 04:20 87 20 150/83 H 96 07/26/20 03:50 84 20 149/82 H 99 07/26/20 03:20 96.9 F 84 20 149/87 H 100 - My Orders Last 24 Hours: My Active Orders 07/26/20 03:30 EKG 12 Lead [EK] Stat 07/26/20 04:37 Admission Status [Patient Status] [ADT] Routine 07/26/20 19:30 MYOGLOBIN, URINE Routine - Assessment/Plan Last 24 Hours: My Active Orders 07/26/20 03:30 EKG 12 Lead [EK] Stat 07/26/20 04:37 Admission Status [Patient Status] [ADT] Routine 07/26/20 19:30 MYOGLOBIN, URINE Routine
[2020-07-26 04:09] LABS: CHLORIDE,CL 102 mmol/L (98-115); SODIUM,NA 139 mmol/L (136-145)
[2020-07-26] MEDS ORDERED: Sodium Chloride 0.9% 1,000 ML ONE (04:16)
[2020-07-26] MEDS ORDERED: Sodium Chloride 0.9% 1,000 ML IV ONE (04:19)
[2020-07-26] MEDS ORDERED: Sodium Chloride 0.9% 1,000 ML IV SCH (04:45)
[2020-07-26 06:36] VITALS: BP 153/86; PULSE 81
--- NOTE | 2020-07-26 07:57 | CT ---
[id number] CT/CT Head WO IV EXAM: CT Head WO IV CLINICAL DATA: SYNCOPE COMPARISON STUDY: Multiple priors, most recent from August 29, 2019 FINDINGS: No intracranial hemorrhage, extra-axial fluid collection, mass, or acute ischemia. No hydrocephalus.. Mild paranasal sinusitis. IMPRESSION: Negative examination of the brain. Justin Horvath MD 07/26/20 0756 Thank you for allowing us to participate in the care of your patient.
[2020-07-26 08:38] LABS: ANION GAP 12.1 mmol/L (5-15); CHLORIDE,CL 103 mmol/L (98-115); SODIUM,NA 138 mmol/L (136-145)
== END 2020-07-26 06:00 | disposition critical access hospital (66) ==
LOC: KA.ED 03:15
DX: T79.6XXA Traumatic ischemia of muscle, initial encounter (principal); E11.649 Type 2 diabetes mellitus with hypoglycemia without coma; I12.9 Hypertensive chronic kidney disease with stage 1 through stage 4 chronic kidney disease, or unspecified chronic kidney disease; N18.9 Chronic kidney disease, unspecified; E11.40 Type 2 diabetes mellitus with diabetic neuropathy, unspecified; E66.9 Obesity, unspecified; F41.9 Anxiety disorder, unspecified; F32.9 Major depressive disorder, single episode, unspecified; E78.00 Pure hypercholesterolemia, unspecified; Z20.828 Contact with and (suspected) exposure to other viral communicable diseases; Z88.2 Allergy status to sulfonamides; Z88.1 Allergy status to other antibiotic agents; Z79.899 Other long term (current) drug therapy; Z79.4 Long term (current) use of insulin; Z90.49 Acquired absence of other specified parts of digestive tract; W22.01XA Walked into wall, initial encounter
CPT/HCPCS: 36415; 70450; 80053; 82550; 82962; 83605; 83874; 85025; 93005; 99285; J7030; U0002; 99284

== ENCOUNTER 2020-07-26 06:00 | Inpatient (IN) | payer MEDICARE, OTHER, MEDICAID ==
[2020-07-26] MEDS ORDERED: Polyethylene Glycol 3350 Powder 17 GM Packet PO PRN (09:36)
[2020-07-26] MEDS ORDERED: Sodium Chloride 0.9% 1,000 ML IV SCH (09:45)
--- NOTE | 2020-07-26 09:51 | PCM.HP.2 ---
H&P History of Present Illness - General Date of Service: 07/26/20 Admit Problem/Dx: Admission Diagnosis/Problem Admission Diagnosis/Problem Syncope Source of Information: Patient, Old Records, RN History Limitations: Reports: No Limitations - Related Data Allergies/Adverse Reactions: Allergies Allergy/AdvReac Type Severity Reaction Status Date / Time vancomycin Allergy Intermediate Rash Verified 07/26/20 03:35 Sulfa (Sulfonamide Allergy Shortness Verified 07/26/20 03:35 Antibiotics) of Breath Home Medications: Home Meds Calcium Carbonate/Vitamin D3 [Calcium 600 + Vit D 400 Softgl] 1 tab PO 0800,1800 02/27/17 [History] Omeprazole 20 mg PO 0800 02/27/17 [History] Polyethylene Glycol 3350 [MiraLAX] 17 gm PO DAILY PRN 02/27/17 [History] Multivitamin with Minerals [Multivitamins with Minerals] 1 each PO DAILY 01/22/18 [History] Acetaminophen [Tylenol] 650 mg PO Q6H PRN tablet 03/04/18 [Rx] Escitalopram [Lexapro] 20 mg PO DAILY #30 tab 03/17/19 [Rx] Fludrocortisone [Florinef] 0.2 mg PO WITHBREAKFAST #30 tablet 03/17/19 [Rx] Ondansetron [Zofran ODT] 4 mg PO Q6H PRN tab.dis 03/17/19 [Rx] Aspirin [Halfprin] 81 mg PO DAILY 07/09/19 [History] Insulin Aspart [NovoLOG] 10 unit SUBCUT BID@1200,1800 07/09/19 [History] Losartan Potassium 25 mg PO DAILY 07/09/19 [History] metFORMIN HCl [Metformin HCl] 1,000 mg PO 0800,1800 07/09/19 [History] Insulin Glargine/Lixisenatide [Soliqua 100 Unit-33 Mcg/ml Pen] 35 units SQ BEDTIME 08/29/19 [History] Insulin Aspart [NovoLOG] 8 unit SUBCUT DAILY@0800 07/26/20 [History] Midodrine 10 mg PO 0700,1200,1800 07/26/20 [History] Rosuvastatin Calcium [Crestor] 40 mg PO DAILY 07/26/20 [History] glipiZIDE [Glipizide ER] 5 mg PO DAILY 07/26/20 [History] Past Medical History HEENT History: Reports: Impaired Vision Cardiovascular History: Reports: High Cholesterol, Hypertension Other Cardiovascular History: Orthostatic Hypotension Respiratory History: Reports: None Gastrointestinal History: Reports: GERD Genitourinary History: Reports: Chronic Renal Insuffiency Musculoskeletal History: Reports: Amputation Other Musculoskeletal History: 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 Neurological History: Reports: Neuropathy, Diabetic Psychiatric History: Reports: Anxiety, Depression, Panic Attack Endocrine/Metabolic History: Reports: Diabetes, Type II, IDDM, Obesity/BMI 30+ Hematologic History: Reports: None Immunologic History: Reports: None Oncologic (Cancer) History: Reports: None Dermatologic History: Reports: Cellulitis - Infectious Disease History Infectious Disease History: Reports: MRSA - Past Surgical History Head Surgeries/Procedures: Reports: None HEENT Surgical History: Reports: None Cardiovascular Surgical History: Reports: None Respiratory Surgical History: Reports: None GI Surgical History: Reports: Appendectomy, Cholecystectomy, Colonoscopy Endocrine Surgical History: Reports: None Neurological Surgical History: Reports: None Musculoskeletal Surgical History: Reports: Amputation, Arthroscopic Knee Dermatological Surgical History: Reports: None Social & Family History - Family History HEENT: Reports: None Cardiac: Reports: None Respiratory: Reports: None GI: Reports: None : Reports: None OBGYN: Reports: None Musculoskeletal: Reports: None Neurological: Reports: None Psychiatric: Reports: None Endocrine/Metabolic: Reports: Diabetes, type II Hematologic: Reports: None Immunologic: Reports: None Dermatologic: Reports: None Oncologic: Reports: Prostate - Tobacco Use Smoking Status *Q: Never Smoker Second Hand Smoke Exposure: No - Caffeine Use Caffeine Use: Reports: Soda Other Caffeine Use: Diet Coke Caffeine Use Comment: 1-2 per day - Recreational Drug Use Recreational Drug Use: No H&P Review of Systems - Review of Systems: Review Of Systems: See Below General: Reports: Weakness HEENT: Reports: Glasses. Denies: Ear Pain, Headaches, Sore Throat, Visual Changes Pulmonary: Denies: Shortness of Breath Cardiovascular: Reports: Lightheadedness, Syncope. Denies: Chest Pain, Edema Gastrointestinal: Denies: Abdominal Pain, Nausea, Vomiting Genitourinary: Reports: No Symptoms Musculoskeletal: Reports: Neck Pain, Shoulder Pain (right), Arm Pain (right upper/lower arm), Hand Pain (bilateral hands, R>L ), Other (right knee pain/edema). Denies: Back Pain Skin: Reports: Wound (abrasions to forehead/nose and left knee) Psychiatric: Reports: Anxiety Hematologic/Lymphatic: Reports: Easy Bruising. Denies: Easy Bleeding Exam - Exam Exam: See Below - Vital Signs Vital Signs: Last Vital Signs Temp 98.4 F 07/26/20 06:56 Pulse 81 07/26/20 06:56 Resp 16 07/26/20 06:56 BP 153/86 H 07/26/20 06:56 Pulse Ox 96 07/26/20 06:56 Weight: 295 lb - Exam Quality Assessment: DVT Prophylaxis (Kishore stockings). No: Supplemental Oxygen General: Alert, Oriented (x3), Cooperative, Mild Distress HEENT: Conjunctiva Clear, Hearing Intact, Mucosa Moist & [place], Pupils Equal, Pupils Reactive, TMs Clear, Glasses Neck: Supple, Trachea Midline Lungs: Clear to Auscultation, Normal Respiratory Effort Cardiovascular: Regular Rhythm, Normal S1, Normal S2, Tachycardia. No: Systolic Murmur, Diastolic Murmur Extremities: No Pedal Edema, Normal Capillary Refill, Arm Pain (right biceps and forearm tenderness, AROM intact to right elbow and wrist, unable to completely close right fist), Other (Left shoulder-full AROM w/o pain; Right shoulder- decreased AROM in all guerrero d/t pain, tender over AC joint; Right knee-tender patella and lateral aspect with moderate edema, AROM limited d/t pain) Skin: Warm, Dry, Ecchymosis (2 areas to abdomen-pt states this is from his insulin), Other (abrasion to forehead, nasal bridge, and left knee) Neurological: Cranial Nerves Intact, Normal Speech, Sensation Intact. No: Strength Equal Bilateral (Strength 3/5 to RUE, 4/5 to LUE) Neuro Extensive - Mental Status: Alert, Oriented x3, Normal Mood/Affect, Normal Cognition, Memory Intact Psychiatric: Alert, Normal Affect, Normal Mood, Anxious (at times d/t pain) EKG INTERPRETATION EKG Date: 07/26/20 Time: 04:24 Rhythm: NSR Rate (Beats/Min): 84 [place]: Normal P-Wave: Present QRS: Normal ST-T: Normal QT: Normal Sepsis Event Note - Evaluation Sepsis Screening Result: No Definite Risk - Focused Exam Vital Signs: Vital Signs Temp Pulse Resp BP Pulse Ox 07/26/20 06:56 98.4 F 81 16 153/86 H 96 Problem List Initiated/Reviewed/Updated: Yes Orders Last 24hrs: Active Orders 24 hr Category Date Time Status Patient Status [ADT] Routine ADT 07/26/20 09:18 Active Blood Glucose Check, Bedside [RC] QIDACANDBED Care 07/26/20 09:29 Active Cardiac Monitoring [RC] CONTINUOUS Care 07/26/20 09:31 Active Intake and Output [RC] QSHIFT Care 07/26/20 09:30 Active Orthostatic Vital Signs [RC] ASDIRECTED Care 07/26/20 09:40 Active Oxygen Therapy [RC] PRN Care 07/26/20 09:18 Active Up With Assistance [RC] ASDIRECTED Care 07/26/20 09:29 Active VTE/DVT Education [RC] PER UNIT ROUTINE Care 07/26/20 09:18 Active Vital Signs [RC] Q4H Care 07/26/20 09:18 Active Consult to Case Management/Healthcare Prof [CONS] Cons 07/26/20 09:29 Active Routine Consult to Physical Therapy [PT Evaluation and Cons 07/26/20 09:35 Active Treatment] [CONS] Routine [employer] Diet [DIET] Diet 07/26/20 Breakfast Active Knee 3V Rt [CR] Routine Exams 07/26/20 09:38 Ordered Shoulder Comp Rt [CR] Routine Exams 07/26/20 09:39 Ordered CBC WITH AUTO DIFF [HEME] AM Lab 07/27/20 05:11 Ordered CBC WITH AUTO DIFF [HEME] Routine Lab 07/26/20 18:00 Ordered CMP [COMPREHENSIVE METABOLIC PN,CMP] [CHEM] Routine Lab 07/26/20 18:00 Ordered COMPREHENSIVE METABOLIC PN,CMP [CHEM] AM Lab 07/27/20 05:11 Ordered CREATINE KINASE,CK [CHEM] AM Lab 07/27/20 05:11 Ordered CREATINE KINASE,CK [CHEM] Routine Lab 07/26/20 18:00 Ordered MAGNESIUM [CHEM] Routine Lab 07/26/20 09:43 Ordered Acetaminophen [TylenoL] Med 07/26/20 09:36 Ordered 650 mg PO Q6H PRN Aspirin [Halfprin] Med 07/26/20 09:45 Ordered 81 mg PO DAILY Calcium Carbonate/Vitamin D3 [Calcium 600 + Vit D 400 Med 07/26/20 18:00 Ordered Softgl] 1 tab PO 0800,1800 Escitalopram [Lexapro] Med 07/26/20 09:45 Ordered 20 mg PO DAILY Fludrocortisone [Florinef] Med 07/27/20 08:00 Ordered 0.2 mg PO WITHBREAKFAST Insulin Aspart [NovoLOG] Med 07/26/20 12:00 Ordered See Protocol SUBCUT WITHMEALSANDBED Losartan [Cozaar] Med 07/26/20 09:45 Ordered 25 mg PO DAILY Midodrine Med 07/26/20 12:00 Ordered 10 mg PO 0700,1200,1800 Multivitamin with Minerals [Multivitamins with Minerals Med 07/26/20 09:45 Ordered ] 1 each PO DAILY Omeprazole Med 07/27/20 08:00 Ordered 20 mg PO 0800 Ondansetron [Zofran ODT] Med 07/26/20 09:36 Ordered 4 mg PO Q6H PRN Sodium Chloride 0.9% [Normal Saline] 1,000 ml Med 07/26/20 09:45 Ordered IV ASDIRECTED Sodium Chloride 0.9% [Normal Saline] 1,000 ml Med 07/26/20 12:00 Ordered IV ASDIRECTED polyethylene glycoL 3350 [MiraLAX] Med 07/26/20 09:36 Ordered 17 gm PO DAILY PRN Resuscitation Status Routine Resus Stat 07/26/20 09:17 Ordered Medication Orders Acetaminophen (Tylenol) 650 mg PO Q6H PRN PRN Reason: Pain Aspirin (Halfprin) 81 mg PO DAILY RUSLAN Fludrocortisone Acetate (Florinef) 0.2 mg PO WITHBREAKFAST RUSLAN Sodium Chloride (Normal Saline) 1,000 mls @ 150 mls/hr IV ASDIRECTED RUSLAN Stop: 07/26/20 12:00 Sodium Chloride (Normal Saline) 1,000 mls @ 100 mls/hr IV ASDIRECTED RUSLAN Insulin Aspart (Novolog) 0 unit SUBCUT WITHMEALSANDBED RUSLAN; Protocol Losartan Potassium (Cozaar) 25 mg PO DAILY RUSLAN Midodrine (Midodrine) 10 mg PO 0700,1200,1800 RUSLAN Non-Formulary Medication (Calcium Carbonate/Vitamin D3 [Calcium 600 + Vit D 400 Softgl]) 1 tab PO 0800,1800 RUS[facility] Non-Formulary Medication (Escitalopram [Lexapro]) 20 mg PO DAILY RUSLAN Non-Formulary Medication (Multivitamin With Minerals [Multivitamins With Min erals]) 1 each PO DAILY PENDING SALE TO [facility] Omeprazole (Omeprazole) 20 mg PO 0800 PENDING SALE TO [facility] Ondansetron HCl (Zofran Odt) 4 mg PO Q6H PRN PRN Reason: Nausea/Vomiting Polyethylene Glycol (Miralax) 17 gm PO DAILY PRN PRN Reason: Constipation Assessment/Plan Comment:: HPI: This is a 59 yo WM who presented to the ED via ambulance after he experienced a low blood sugar and fell at home. Patient reports his blood sugar was lower when he was getting ready to go to bed, so he only took his Lantus insulin. He got up around 11p to use the bathroom and prior to this he ate a protein bar because he felt his sugar was low. He used the bathroom and on his way back to his bed he felt dizzy and his left leg gave out. He fell face first onto the floor. He was able to roll to his right side and called for his sister in the apartment above him, but was unsuccessful for about 3 hours. When his sister arrived his blood sugar was 41, so she called 911. He was given oral glucose 15 gm by EMS and transported to the ER. Glucose on arrival to ER was 53, so he was given another oral glucose 15 gm along with juice x 2, which brought his glucose up to 75. Pertinent ED work-up: WBC 17.7 w/neutrophils 84.1% Hgb 13.2. Na 139 K 3.4 Creatinine 0.71 Lactic acid 1.7 LFTs unremarkable CK 409 Urine myoglobin obtained and is a send out COVID negative EKG NSR Head CT negative Hospital Course: 07/26/20: Patient sitting in chair during rounds. Complains of pain to his right knee, right shoulder and entire right arm with difficulty closing his right fist. Cranial nerves intact with strength 3/5 to RUE and 4/5 to LUE. Right knee with effusion and pain at patella and laterally. Dr. Paniagua in to examine patient as well and plans to remove the fluid after x-ray is obtained. VS T 98.4 F, HR 81, RR 16, BP 153/86, O2 sat 96% on room air. Na 138, K 3.4, Creatinine 0.63, Corrected calcium 8.5, total bilirubin 1.1, LFTs wnl, CK 693, Mg 1.2. Hospitalization problems & plan: #Syncopal episode #Hypoglycemia in T2DM #Rhabdomyolysis #Right upper extremity pain, question brachial plexus injury/compression, no evidence of compartment syndrome #Right knee pain with effusion #Facial and left knee abrasions #Leukocytosis with neutrophilia & leukopenia #Hypocalcemia, mild #Hypomagnesemia #Generalized weakness -Continuous telemetry monitoring -Orthostatic vitals -NS at 150 mL/hr until 1200, then NS at 100 mL/hr -Accuchecks QIDAC -Holding home diabetic medications -Low dose SS insulin QIDAC -Repeat CK and CMP at 1800 -Urine myoglobin pending/send out -Hold off on bicarbonate d/t hypocalcemia and CK <5000 -Xray of right shoulder -Monitor for compartment syndrome -Xray of right knee -Dr. Paniagua to drain right knee and send fluid for analysis if necessary -Continue tylenol 650 mg q6h prn -Repeat CBC at 1800 -Continue calcium supplementation 600 mg BID -Mg Sulfate 4 gm IV x 1 dose over 4 hours -CBC, CMP, CK, Mg in AM -PT and SS consults Chronic, stable conditions: #HTN, essential. Continue losartan 25 mg daily. #Orthostatic hypotension. Continue florinef 0.2 mg daily, midodrine 10 mg TID. #NSTEMI, history. Continue aspirin 81 mg daily. #Diabetic polyneuropathy. #Diabetic autonomic neuropathy. #Dyslipidemia. Holding crestor d/t rhabdomyolysis. #Obesity. #Anxiety. Continue lexapro 20 mg daily. #Conversion disorder. #Anemia d/t CKD stage 3, history. #Esophageal reflux. Continue omeprazole 20 mg daily. #Hepatic steatosis. #MRSA history. #Constipation. Continue Miralax 17 gm daily prn. Hospitalization details: #FEN. NS at 150 mL/hr until 1200, then NS at 100 mL/hr; Na/K wnl, Ca low normal- continue oral calcium, Mg low-replacing IV; ADA. #PPX. Kishore stockings. Bed alarm. #Code Status. Full Code. #Emergency Contact. Yanique Huertas, sister. #Disposition. Patient will require at minimum a 3 day inpatient stay to fully evaluate all of his current conditions. He may benefit from swing bed with PT for a short time afterwards. - Mortality Measure Prognosis:: Good
[2020-07-26] MEDS ORDERED: Magnesium Sulfate/Water 4 GM in Premix Bag 1 BAG IV ONE (10:15)
[2020-07-26] MEDS ORDERED: Bupivacaine 0.5% 10 ML SDV INJECT ONE (11:00)
[2020-07-26] MEDS: Ondansetron 4 MG Tab.DIS PO PRN (11:12)
[2020-07-26] MEDS: Sodium Chloride 0.9% 1,000 ML IV SCH ×2 (11:44→21:52)
[2020-07-26] MEDS: Midodrine 5 MG Tab PO SCH ×2 (12:27→18:06)
[2020-07-26] MEDS: Escitalopram 10 MG Tab PO SCH (12:28)
[2020-07-26] MEDS: Aspirin 81 MG Tab.EC PO SCH (12:28)
[2020-07-26] MEDS: Losartan 25 MG Tab PO SCH (12:30)
[2020-07-26] MEDS: Insulin Aspart 100 Units/ML 3 ML Pen SUBCUT SCH ×3 (12:32→21:50)
[2020-07-26] MEDS: Multivitamins with Minerals/Iron/Folic Acid/Lycopene Tab PO SCH (12:32)
[2020-07-26] MEDS: Cholecalciferol (Vitamin D3) 25 MCG Tab PO SCH (12:32)
--- NOTE | 2020-07-26 15:19 | OR ---
DATE OF SURGERY: 07/26/2020 SURGEON: Mady Johns MD PREOPERATIVE DIAGNOSIS: Moderate to massive right knee effusion, traumatic. POSTOPERATIVE DIAGNOSIS: Moderate to massive right knee effusion, traumatic. OPERATION PERFORMED: Aseptic aspiration of right knee effusion. DESCRIPTION OF PROCEDURE: The informed consent was obtained from the patient regarding this procedure. All possible complications were discussed with the patient. He wished to proceed. He was kept in the lying position. The knee was thoroughly prepped and anesthetized the needle tract with Xylocaine 1%, and following that, we introduced an 18-gauge needle into the joint and aspirated approximately 20 mL of slightly blood-tinged fluid. We then applied a [place] pressure dressing. The patient tolerated the procedure very well. /[id number]/MODL MTDD
[2020-07-26] MEDS: Acetaminophen 325 MG Tab PO PRN (16:52)
[2020-07-26] MEDS: Calcium Carbonate 600 MG Tab PO SCH (18:06)
[2020-07-26 18:25] LABS: ANION GAP 13.7 mmol/L (5-15); CHLORIDE,CL 102 mmol/L (98-115); SODIUM,NA 137 mmol/L (136-145)
[2020-07-27] MEDS: Acetaminophen 325 MG Tab PO PRN ×3 (01:21→18:28)
[2020-07-27] MEDS: Ondansetron 4 MG Tab.DIS PO PRN (05:42)
[2020-07-27] MEDS: Midodrine 5 MG Tab PO SCH ×3 (06:28→18:29)
[2020-07-27] MEDS: Aspirin 81 MG Tab.EC PO SCH (08:13)
[2020-07-27] MEDS: Fludrocortisone 0.1 MG Tab PO SCH (08:14)
[2020-07-27] MEDS: Losartan 25 MG Tab PO SCH (08:14)
[2020-07-27] MEDS: Cholecalciferol (Vitamin D3) 25 MCG Tab PO SCH (08:15)
[2020-07-27] MEDS: Calcium Carbonate 600 MG Tab PO SCH ×2 (08:15→18:30)
[2020-07-27] MEDS: Escitalopram 10 MG Tab PO SCH (08:15)
[2020-07-27] MEDS: Multivitamins with Minerals/Iron/Folic Acid/Lycopene Tab PO SCH (08:15)
[2020-07-27] MEDS: Omeprazole 20 MG Cap.CR PO SCH (08:15)
[2020-07-27] MEDS: Sodium Chloride 0.9% 1,000 ML IV SCH ×2 (08:16→18:28)
[2020-07-27] MEDS: Insulin Aspart 100 Units/ML 3 ML Pen SUBCUT SCH ×4 (08:17→21:48)
--- NOTE | 2020-07-27 08:24 | CR ---
[id number] RAD/RAD Wrist Right 3V Min EXAM: 3 VIEWS RIGHT WRIST. INDICATION: FALL, SWELLING,PAIN. COMPARISON: None. DISCUSSION: No fracture, dislocation or other acute osseous abnormality. Old fracture of the ulnar styloid. Mild degenerative changes most pronounced at the first carpometacarpal joint. IMPRESSION: 1. No acute osseous abnormalities. Chronic changes as above. Jarvis Kaba DO 07/27/20 0823 Thank you for allowing us to participate in the care of your patient.
[2020-07-27 08:36] LABS: ANION GAP 11.5 mmol/L (5-15); CHLORIDE,CL 103 mmol/L (98-115); SODIUM,NA 138 mmol/L (136-145)
--- NOTE | 2020-07-27 11:56 | PCM.PN ---
- General Info Date of Service: 07/27/20 Functional Status: Reports: Pain Controlled, Tolerating Diet, Urinating. Denies: Ambulating, New Symptoms - Review of Systems General: Reports: Weakness, Fatigue. Denies: Chills, Night Sweats HEENT: Reports: No Symptoms Pulmonary: Reports: No Symptoms Cardiovascular: Reports: No Symptoms Gastrointestinal: Reports: No Symptoms Genitourinary: Reports: No Symptoms Musculoskeletal: Reports: Hand Pain (Right wrist right hand pain.) Skin: Reports: Bruising Neurological: Reports: Pre-Existing Deficit, Tingling (Sling in right fingers this morning), Difficulty Walking, Weakness, Gait Disturbance. Denies: Confusion, Headache, Numbness - Patient Data Vitals - Most Recent: Last Vital Signs Temp 97.9 F 07/27/20 07:00 Pulse 82 07/27/20 07:00 Resp 20 07/27/20 07:00 BP 159/81 H 07/27/20 08:14 Pulse Ox 94 L 07/27/20 07:00 Weight - Most Recent: 295 lb I&O - Last 24 Hours: Intake & Output 07/26/20 07/27/20 07/27/20 22:59 06:59 14:59 Intake Total 1310 927 Output Total 1025 450 Balance 285 477 Lab Results Last 24 Hours: Laboratory Results - last 24 hr 07/26/20 07/26/20 07/26/20 Range/Units 11:37 17:50 17:50 WBC 11.19 H (5.00-10.00) 10^3/uL RBC 3.80 L (4.50-6.00) 10^6/uL Hgb 11.9 L (13.0-17.0) g/dL Hct 36.0 L (40.0-52.0) % MCV 94.7 H (82.0-92.0) fL MCH 31.3 H (27.0-31.0) pg MCHC 33.1 (32.0-36.0) g/dL RDW 13.5 (11.5-14.5) % Plt Count 327 (150-400) 10^3/uL MPV 10.2 (7.4-10.4) fL Immature Gran % (Auto) 0.2 (0.0-5.0) % Neut % (Auto) 74.9 H (50.0-70.0) % Lymph % (Auto) 15.4 L (20.0-40.0) % Warren % (Auto) 8.0 (2.0-8.0) % Eos % (Auto) 1.4 (1.0-3.0) % Baso % (Auto) 0.1 (0.0-1.0) % Neut # (Auto) 8.38 H (2.50-7.00) 10^3/uL Lymph # (Auto) 1.72 (1.00-4.00) 10^3/uL Warren # (Auto) 0.90 H (0.10-0.80) 10^3/uL Eos # (Auto) 0.16 (0.10-0.30) 10^3/uL Baso # (Auto) 0.01 (0.00-0.10) 10^3/uL Immature Gran # (Auto) 0.02 (0.00-0.50) 10^3/uL Sodium 137 (136-145) mmol/L Potassium 3.8 (3.3-5.3) mmol/L Chloride 102 (98-115) mmol/L Carbon Dioxide 25.1 (21.0-32.0) mmol/L Anion Gap 13.7 (5-15) mmol/L BUN 12 (6-25) mg/dL Creatinine 0.68 (0.51-1.17) mg/dL Est Cr Clr Drug Dosing 132.19 mL/min Estimated GFR (MDRD) > 60 mL/min Glucose 213 H (75 - 99) mg/dL POC Glucose 183 H (74-100) mg/dL Calcium 7.9 L (8.7-10.3) mg/dL Magnesium (1.8-2.4) mg/dL Total Bilirubin 1.4 H (0.2-1.0) mg/dL AST 46 H (15-37) U/L ALT 28 (12-78) U/L Alkaline Phosphatase 97 (46-116) IU/L Creatine Kinase 1066 H* (26-276) U/L Total Protein 7.0 (6.4-8.2) g/dL Albumin 3.31 (3.00-4.80) g/dL 07/26/20 07/26/20 07/27/20 Range/Units 18:02 21:48 05:39 WBC (5.00-10.00) 10^3/uL RBC (4.50-6.00) 10^6/uL Hgb (13.0-17.0) g/dL Hct (40.0-52.0) % MCV (82.0-92.0) fL MCH (27.0-31.0) pg MCHC (32.0-36.0) g/dL RDW (11.5-14.5) % Plt Count (150-400) 10^3/uL MPV (7.4-10.4) fL Immature Gran % (Auto) (0.0-5.0) % Neut % (Auto) (50.0-70.0) % Lymph % (Auto) (20.0-40.0) % Warren % (Auto) (2.0-8.0) % Eos % (Auto) (1.0-3.0) % Baso % (Auto) (0.0-1.0) % Neut # (Auto) (2.50-7.00) 10^3/uL Lymph # (Auto) (1.00-4.00) 10^3/uL Warren # (Auto) (0.10-0.80) 10^3/uL Eos # (Auto) (0.10-0.30) 10^3/uL Baso # (Auto) (0.00-0.10) 10^3/uL Immature Gran # (Auto) (0.00-0.50) 10^3/uL Sodium (136-145) mmol/L Potassium (3.3-5.3) mmol/L Chloride (98-115) mmol/L Carbon Dioxide (21.0-32.0) mmol/L Anion Gap (5-15) mmol/L BUN (6-25) mg/dL Creatinine (0.51-1.17) mg/dL Est Cr Clr Drug Dosing mL/min Estimated GFR (MDRD) mL/min Glucose (75 - 99) mg/dL POC Glucose 175 H 204 H 168 H (74-100) mg/dL Calcium (8.7-10.3) mg/dL Magnesium (1.8-2.4) mg/dL Total Bilirubin (0.2-1.0) mg/dL AST (15-37) U/L ALT (12-78) U/L Alkaline Phosphatase (46-116) IU/L Creatine Kinase (26-276) U/L Total Protein (6.4-8.2) g/dL Albumin (3.00-4.80) g/dL 07/27/20 07/27/20 07/27/20 Range/Units 07:21 07:21 07:45 WBC 7.75 (5.00-10.00) 10^3/uL RBC 3.62 L (4.50-6.00) 10^6/uL Hgb 11.6 L (13.0-17.0) g/dL Hct 34.7 L (40.0-52.0) % MCV 95.9 H (82.0-92.0) fL MCH 32.0 H (27.0-31.0) pg MCHC 33.4 (32.0-36.0) g/dL RDW 13.9 (11.5-14.5) % Plt Count 281 (150-400) 10^3/uL MPV 10.6 H (7.4-10.4) fL Immature Gran % (Auto) 0.1 (0.0-5.0) % Neut % (Auto) 68.8 (50.0-70.0) % Lymph % (Auto) 20.3 (20.0-40.0) % Warren % (Auto) 7.6 (2.0-8.0) % Eos % (Auto) 2.7 (1.0-3.0) % Baso % (Auto) 0.5 (0.0-1.0) % Neut # (Auto) 5.33 (2.50-7.00) 10^3/uL Lymph # (Auto) 1.57 (1.00-4.00) 10^3/uL Warren # (Auto) 0.59 (0.10-0.80) 10^3/uL Eos # (Auto) 0.21 (0.10-0.30) 10^3/uL Baso # (Auto) 0.04 (0.00-0.10) 10^3/uL Immature Gran # (Auto) 0.01 (0.00-0.50) 10^3/uL Sodium 138 (136-145) mmol/L Potassium 3.7 (3.3-5.3) mmol/L Chloride 103 (98-115) mmol/L Carbon Dioxide 27.2 (21.0-32.0) mmol/L Anion Gap 11.5 (5-15) mmol/L BUN 10 (6-25) mg/dL Creatinine 0.69 (0.51-1.17) mg/dL Est Cr Clr Drug Dosing 130.27 mL/min Estimated GFR (MDRD) > 60 mL/min Glucose 203 H (75 - 99) mg/dL POC Glucose 167 H (74-100) mg/dL Calcium 8.0 L (8.7-10.3) mg/dL Magnesium 1.5 L (1.8-2.4) mg/dL Total Bilirubin 1.4 H (0.2-1.0) mg/dL AST 38 H (15-37) U/L ALT 28 (12-78) U/L Alkaline Phosphatase 93 (46-116) IU/L Creatine Kinase 641 H* (26-276) U/L Total Protein 6.7 (6.4-8.2) g/dL Albumin 3.09 (3.00-4.80) g/dL 07/27/20 Range/Units 10:50 WBC (5.00-10.00) 10^3/uL RBC (4.50-6.00) 10^6/uL Hgb (13.0-17.0) g/dL Hct (40.0-52.0) % MCV (82.0-92.0) fL MCH (27.0-31.0) pg MCHC (32.0-36.0) g/dL RDW (11.5-14.5) % Plt Count (150-400) 10^3/uL MPV (7.4-10.4) fL Immature Gran % (Auto) (0.0-5.0) % Neut % (Auto) (50.0-70.0) % Lymph % (Auto) (20.0-40.0) % Warren % (Auto) (2.0-8.0) % Eos % (Auto) (1.0-3.0) % Baso % (Auto) (0.0-1.0) % Neut # (Auto) (2.50-7.00) 10^3/uL Lymph # (Auto) (1.00-4.00) 10^3/uL Warren # (Auto) (0.10-0.80) 10^3/uL Eos # (Auto) (0.10-0.30) 10^3/uL Baso # (Auto) (0.00-0.10) 10^3/uL Immature Gran # (Auto) (0.00-0.50) 10^3/uL Sodium (136-145) mmol/L Potassium (3.3-5.3) mmol/L Chloride (98-115) mmol/L Carbon Dioxide (21.0-32.0) mmol/L Anion Gap (5-15) mmol/L BUN (6-25) mg/dL Creatinine (0.51-1.17) mg/dL Est Cr Clr Drug Dosing mL/min Estimated GFR (MDRD) mL/min Glucose (75 - 99) mg/dL POC Glucose 273 H (74-100) mg/dL Calcium (8.7-10.3) mg/dL Magnesium (1.8-2.4) mg/dL Total Bilirubin (0.2-1.0) mg/dL AST (15-37) U/L ALT (12-78) U/L Alkaline Phosphatase (46-116) IU/L Creatine Kinase (26-276) U/L Total Protein (6.4-8.2) g/dL Albumin (3.00-4.80) g/dL Med Orders - Current: Current Medications Acetaminophen (Tylenol) 650 mg PO Q6H PRN PRN Reason: Pain Last Admin: 07/27/20 09:32 Dose: 650 mg Documented by: Aspirin (Halfprin) 81 mg PO DAILY [facility] Last Admin: 07/27/20 08:13 Dose: 81 mg Documented by: Calcium Carbonate/Glycine (Calcium Carbonate) 600 mg PO 0800,1800 [facility] Last Admin: 07/27/20 08:15 Dose: 600 mg Documented by: Cholecalciferol (Vitamin D3) 25 mcg PO DAILY [facility] Last Admin: 07/27/20 08:15 Dose: 25 mcg Documented by: Escitalopram Oxalate (Lexapro) 20 mg PO DAILY [facility] Last Admin: 07/27/20 08:15 Dose: 20 mg Documented by: Fludrocortisone Acetate (Florinef) 0.2 mg PO WITHBREAKFAST [facility] Last Admin: 07/27/20 08:14 Dose: 0.2 mg Documented by: Sodium Chloride (Normal Saline) 1,000 mls @ 100 mls/hr IV ASDIRECTED [facility] Last Admin: 07/27/20 08:16 Dose: 100 mls/hr Documented by: Insulin Aspart (Novolog) 0 unit SUBCUT WITHMEALSANDBED [facility]; Protocol Last Admin: 07/27/20 08:17 Dose: 1 unit Documented by: Losartan Potassium (Cozaar) 25 mg PO DAILY [facility] Last Admin: 07/27/20 08:14 Dose: 25 mg Documented by: Midodrine (Midodrine) 10 mg PO 0700,1200,1800 [facility] Last Admin: 07/27/20 06:28 Dose: Not Given Documented by: Multivitamins/Minerals (Centrum) 1 tab PO DAILY [facility] Last Admin: 07/27/20 08:15 Dose: 1 tab Documented by: Omeprazole (Omeprazole) 20 mg PO 0800 [facility] Last Admin: 07/27/20 08:15 Dose: 20 mg Documented by: Ondansetron HCl (Zofran Odt) 4 mg PO Q6H PRN PRN Reason: Nausea/Vomiting Last Admin: 07/27/20 05:42 Dose: 4 mg Documented by: Polyethylene Glycol (Miralax) 17 gm PO DAILY PRN PRN Reason: Constipation Discontinued Medications Bupivacaine HCl (Sensorcaine-Mpf 0.5%) 10 ml INJECT .STK-MED ONE Stop: 07/26/20 11:01 Sodium Chloride (Normal Saline) 1,000 mls @ 150 mls/hr IV ASDIRECTED [facility] Stop: 07/26/20 12:00 Magnesium Sulfate 4 gm/ Premix 100 mls @ 25 mls/hr IV ONETIME ONE Stop: 07/26/20 14:14 Last Admin: 07/26/20 11:43 Dose: 25 mls/hr Documented by: Lidocaine HCl (Xylocaine-Mpf 1%) 2 ml INJECT .STK-MED ONE Stop: 07/26/20 11:01 - Exam Quality Assessment: DVT Prophylaxis General: Alert, Oriented Neck: Supple Lungs: Clear to Auscultation, Normal Respiratory Effort Cardiovascular: Regular Rate, Regular Rhythm GI/Abdominal Exam: Soft. No: Distended Back Exam: No: CVA Tenderness (L), CVA Tenderness (R) Extremities: Other (Right knee previous drainage, wrapped in Rg bandage placed. Right hand, good distal ulnar and pedal pulses, slightly edematous, fair movement. Some tingling likely due to tight wrist splint.) Skin: Other (Linear 4 cm abrasion to forehead and nasal bridge,) Wound/Incisions: No Drainage Neurological: Normal Speech, Normal Tone, Sensation Intact Psy/Mental Status: Alert, Normal Affect, Normal Mood Sepsis Event Note - Evaluation Sepsis Screening Result: No Definite Risk - Focused Exam Vital Signs: Vital Signs Temp Pulse Resp BP BP Pulse Ox 07/27/20 08:14 159/81 H 07/27/20 07:00 97.9 F 82 20 162/81 H 94 L 07/27/20 03:00 99 F 83 16 126/69 94 L - Problem List Review Problem List Initiated/Reviewed/Updated: Yes - Plan Plan:: HPI: This is a 59 yo WM who presented to the ED via ambulance after he experien janet a low blood sugar and fell at home. Patient reports his blood sugar was lower when he was getting ready to go to bed, so he only took his Lantus insulin. He got up around 11p to use the bathroom and prior to this he ate a protein bar because he felt his sugar was low. He used the bathroom and on his way back to his bed he felt dizzy and his left leg gave out. He fell face first onto the floor. He was able to roll to his right side and called for his sister in the apartment above him, but was unsuccessful for about 3 hours. When his sister arrived his blood sugar was 41, so she called 911. He was given oral glucose 15 gm by EMS and transported to the ER. Glucose on arrival to ER was 53, so he was given another oral glucose 15 gm along with juice x 2, which brought his glucose up to 75. Pertinent ED work-up: WBC 17.7 w/neutrophils 84.1% Hgb 13.2. Na 139 K 3.4 Creatinine 0.71 Lactic acid 1.7 LFTs unremarkable CK 409 Urine myoglobin obtained and is a send out COVID negative EKG NSR Head CT negative Hospital Course: 07/26/20: Patient sitting in chair during rounds. Complains of pain to his right knee, right shoulder and entire right arm with difficulty closing his right fist. Cranial nerves intact with strength 3/5 to RUE and 4/5 to LUE. Right knee with effusion and pain at patella and laterally. Dr. Paniagua in to examine patient as well and plans to remove the fluid after x-ray is obtained. VS T 98.4 F, HR 81, RR 16, BP 153/86, O2 sat 96% on room air. Na 138, K 3.4, Creatinine 0.63, Corrected calcium 8.5, total bilirubin 1.1, LFTs wnl, CK 693, Mg 1.2. 07/27/2020; Patient is sitting in chair feeling better however does complain of right hand pain and tingling in his fingers. Wrist x-ray this morning was negative. Patient did have wrist splint on this was loosened on rounds this morning. CK improving -Xray of right shoulder; No official read however viewed the film myself, no dislocation or fracture is noted. -Wrist x-ray, no fracture or dislocation however mild degenerative changes first CMP joint Hospitalization problems & plan: #Rhabdomyolysis #Syncopal episode #Hypoglycemia in T2DM #Right upper extremity pain, question brachial plexus injury/compression, no evidence of compartment syndrome #Right knee pain with effusion #Facial and left knee abrasions #Leukocytosis with neutrophilia & leukopenia #Hypocalcemia, minimally corrects with normal albumin #Hypomagnesemia #Generalized weakness -Can DC telemetry monitoring -Cont NS at 100 mL/hr -Accuchecks QIDAC -Holding home diabetic medications -Low dose SS insulin QIDAC -Repeat CK and CMP in am -Urine myoglobin pending/send out -Monitor for compartment syndrome -Xray of right knee -Dr. Paniagua to drain right knee and send fluid for analysis if necessary -Continue tylenol 650 mg q6h prn -Continue calcium supplementation 600 mg BID -Mg Sulfate 4 gm IV x 1 dose over 4 hours Chronic, stable conditions: #HTN, essential. Continue losartan 25 mg daily. #Orthostatic hypotension. Continue florinef 0.2 mg daily, midodrine 10 mg TID. #NSTEMI, history. Continue aspirin 81 mg daily. #Diabetic polyneuropathy. #Diabetic autonomic neuropathy. #Dyslipidemia. Holding crestor d/t rhabdomyolysis. #Obesity. #Anxiety. Continue lexapro 20 mg daily. #Conversion disorder. #Anemia d/t CKD stage 3, history. #Esophageal reflux. Continue omeprazole 20 mg daily. #Hepatic steatosis. #MRSA history. #Constipation. Continue Miralax 17 gm daily prn. Hospitalization details: #FEN. NS at 100 mL/hr; Na/K wnl, ADA. #PPX. Kishore stockings. Bed alarm. #Code Status. Full Code. #Emergency Contact. Yanique Velázquezkristen, sister. #Disposition. Patient will require at minimum a 3 day inpatient stay to fully evaluate all of his current conditions. Likely swing bed Candidate with PT. Medicaid.
[2020-07-28] MEDS: Sodium Chloride 0.9% 1,000 ML IV SCH (04:22)
[2020-07-28] MEDS: Acetaminophen 325 MG Tab PO PRN (04:23)
[2020-07-28] MEDS: Midodrine 5 MG Tab PO SCH ×3 (06:15→18:17)
[2020-07-28] MEDS: Insulin Aspart 100 Units/ML 3 ML Pen SUBCUT SCH ×4 (08:06→21:31)
[2020-07-28] MEDS: Cholecalciferol (Vitamin D3) 25 MCG Tab PO SCH (08:07)
[2020-07-28] MEDS: Multivitamins with Minerals/Iron/Folic Acid/Lycopene Tab PO SCH (08:07)
[2020-07-28] MEDS: Escitalopram 10 MG Tab PO SCH (08:07)
[2020-07-28] MEDS: Omeprazole 20 MG Cap.CR PO SCH (08:07)
[2020-07-28] MEDS: Fludrocortisone 0.1 MG Tab PO SCH (08:07)
[2020-07-28] MEDS: Calcium Carbonate 600 MG Tab PO SCH ×2 (08:07→18:17)
[2020-07-28] MEDS: Losartan 25 MG Tab PO SCH (08:08)
[2020-07-28] MEDS: Aspirin 81 MG Tab.EC PO SCH (08:08)
--- NOTE | 2020-07-28 10:55 | PCM.PN ---
- General Info Date of Service: 07/28/20 Functional Status: Reports: Tolerating Diet. Denies: Pain Controlled, Ambulating - Review of Systems General: Reports: Weakness Pulmonary: Reports: No Symptoms Cardiovascular: Reports: No Symptoms Gastrointestinal: Reports: No Symptoms Genitourinary: Reports: No Symptoms Musculoskeletal: Reports: Hand Pain (right hand pain). Denies: Joint Swelling Skin: Reports: Bruising Neurological: Reports: Pre-Existing Deficit, Tingling (tingling Right hand ), Difficulty Walking, Weakness, Gait Disturbance Psychiatric: Reports: No Symptoms - Patient Data Vitals - Most Recent: Last Vital Signs Temp 98.7 F 07/28/20 06:08 Pulse 72 07/28/20 06:08 Resp 18 07/28/20 06:08 BP 154/79 H 07/28/20 08:08 Pulse Ox 94 L 07/28/20 06:08 Weight - Most Recent: 295 lb I&O - Last 24 Hours: Intake & Output 07/27/20 07/28/20 07/28/20 22:59 06:59 14:59 Intake Total 1350 1185 Output Total 1750 1700 Balance -400 -515 Lab Results Last 24 Hours: Laboratory Results - last 24 hr 07/27/20 07/27/20 07/27/20 Range/Units 10:50 17:28 21:47 POC Glucose 273 H 237 H 308 H (74-100) mg/dL Creatine Kinase (26-276) U/L 07/28/20 07/28/20 Range/Units 07:31 10:00 POC Glucose 245 H (74-100) mg/dL Creatine Kinase 311 H* (26-276) U/L Med Orders - Current: Current Medications Acetaminophen (Tylenol) 650 mg PO Q6H PRN PRN Reason: Pain Last Admin: 07/28/20 04:23 Dose: 650 mg Documented by: Aspirin (Halfprin) 81 mg PO DAILY [facility] Last Admin: 07/28/20 08:08 Dose: 81 mg Documented by: Calcium Carbonate/Glycine (Calcium Carbonate) 600 mg PO 0800,1800 [facility] Last Admin: 07/28/20 08:07 Dose: 600 mg Documented by: Cholecalciferol (Vitamin D3) 25 mcg PO DAILY [facility] Last Admin: 07/28/20 08:07 Dose: 25 mcg Documented by: Escitalopram Oxalate (Lexapro) 20 mg PO DAILY [facility] Last Admin: 07/28/20 08:07 Dose: 20 mg Documented by: Fludrocortisone Acetate (Florinef) 0.2 mg PO WITHBREAKFAST [facility] Last Admin: 07/28/20 08:07 Dose: 0.2 mg Documented by: Sodium Chloride (Normal Saline) 1,000 mls @ 100 mls/hr IV ASDIRECTED [facility] Last Admin: 07/28/20 04:22 Dose: 100 mls/hr Documented by: Insulin Aspart (Novolog) 0 unit SUBCUT WITHMEALSANDBED [facility]; Protocol Last Admin: 07/28/20 08:06 Dose: 2 unit Documented by: Losartan Potassium (Cozaar) 25 mg PO DAILY [facility] Last Admin: 07/28/20 08:08 Dose: 25 mg Documented by: Midodrine (Midodrine) 10 mg PO 0700,1200,1800 [facility] Last Admin: 07/28/20 06:15 Dose: 10 mg Documented by: Multivitamins/Minerals (Centrum) 1 tab PO DAILY [facility] Last Admin: 07/28/20 08:07 Dose: 1 tab Documented by: Omeprazole (Omeprazole) 20 mg PO 0800 [facility] Last Admin: 07/28/20 08:07 Dose: 20 mg Documented by: Ondansetron HCl (Zofran Odt) 4 mg PO Q6H PRN PRN Reason: Nausea/Vomiting Last Admin: 07/27/20 05:42 Dose: 4 mg Documented by: Polyethylene Glycol (Miralax) 17 gm PO DAILY PRN PRN Reason: Constipation Discontinued Medications Bupivacaine HCl (Sensorcaine-Mpf 0.5%) 10 ml INJECT .STK-MED ONE Stop: 07/26/20 11:01 Sodium Chloride (Normal Saline) 1,000 mls @ 150 mls/hr IV ASDIRECTED [facility] Stop: 07/26/20 12:00 Magnesium Sulfate 4 gm/ Premix 100 mls @ 25 mls/hr IV ONETIME ONE Stop: 07/26/20 14:14 Last Admin: 07/26/20 11:43 Dose: 25 mls/hr Documented by: Lidocaine HCl (Xylocaine-Mpf 1%) 2 ml INJECT .STK-MED ONE Stop: 07/26/20 11:01 - Exam Quality Assessment: No: Supplemental Oxygen General: Alert, Oriented Neck: Supple Lungs: Clear to Auscultation, Normal Respiratory Effort Cardiovascular: Regular Rate, Regular Rhythm GI/Abdominal Exam: Normal Bowel Sounds, Soft (Male) Exam: Deferred Back Exam: No: CVA Tenderness (L), CVA Tenderness (R) Peripheral Pulses: 2+: Brachial (L), Brachial (R), Radial (L), Radial (R) Skin: Other (Bottom of her right foot, healing ulcerations) Wound/Incisions: Healing Well Neurological: Normal Speech, Normal Tone, Sensation Intact, Other (Right shoulder, fair external and internal rotation, tingling right hand with pain, very limited active flexion all digits right hand, good distal pulses, sensation appears intact, strength limited to 1+, good brachial pulses). No: Strength Equal Bilateral Psy/Mental Status: Alert, Normal Affect, Normal Mood Sepsis Event Note - Evaluation Sepsis Screening Result: No Definite Risk - Focused Exam Vital Signs: Vital Signs Temp Pulse Resp BP BP Pulse Ox 07/28/20 08:08 154/79 H 07/28/20 06:08 98.7 F 72 18 166/74 H 94 L - Problem List Review Problem List Initiated/Reviewed/Updated: Yes - Plan Plan:: HPI: This is a 59 yo WM who presented to the ED via ambulance after he experienced a low blood sugar and fell at home. Patient reports his blood sugar was lower when he was getting ready to go to bed, so he only took his Lantus insulin. He got up around 11p to use the bathroom and prior to this he ate a protein bar because he felt his sugar was low. He used the bathroom and on his way back to his bed he felt dizzy and his left leg gave out. He fell face first onto the floor. He was able to roll to his right side and called for his sister in the apartment above him, but was unsuccessful for about 3 hours. When his sister arrived his blood sugar was 41, so she called 911. He was given oral glucose 15 gm by EMS and transported to the ER. Glucose on arrival to ER was 53, so he was given another oral glucose 15 gm along with juice x 2, which brought his glucose up to 75. Pertinent ED work-up: WBC 17.7 w/neutrophils 84.1% Hgb 13.2. Na 139 K 3.4 Creatinine 0.71 Lactic acid 1.7 LFTs unremarkable CK 409 Urine myoglobin obtained and is a send out COVID negative EKG NSR Head CT negative Hospital Course: 07/26/20: Patient sitting in chair during rounds. Complains of pain to his right knee, right shoulder and entire right arm with difficulty closing his right fist. Cranial nerves intact with strength 3/5 to RUE and 4/5 to LUE. Right knee with effusion and pain at patella and laterally. Dr. Paniagua in to examine patient as well and plans to remove the fluid after x-ray is obtained. VS T 98.4 F, HR 81, RR 16, BP 153/86, O2 sat 96% on room air. Na 138, K 3.4, Creatinine 0.63, Corrected calcium 8.5, total bilirubin 1.1, LFTs wnl, CK 693, Mg 1.2. 07/27/2020; Patient is sitting in chair feeling better however does complain of right hand pain and tingling in his fingers. Wrist x-ray this morning was negative. Patient did have wrist splint on this was loosened on rounds this morning. CK improving 07/28/2020; CK dramatically improved now down to 311. Tolerating fluids well. Only complaint is tingling and numbness and pain into his right hand with limited range of motion and function. Internal/external rotation adequate, good brachial and distal pulses, seems to have good sensation distally. Slight edema into his hands. No erythremia. Fluids are running into right arm. -Xray of right shoulder; No official read however viewed the film myself, no dislocation or fracture is noted. -Wrist x-ray, no fracture or dislocation however mild degenerative changes first CMP joint Hospitalization problems & plan: #Rhabdomyolysis #Right upper extremity pain, question brachial plexus injury/compression, no evidence of compartment syndrome #Syncopal episode #T2DM, with hyperglycemia, adjust insulin #Right knee pain with effusion #Facial and left knee abrasions #Leukocytosis with neutrophilia & leukopenia #Hypocalcemia, minimally corrects with normal albumin #Hypomagnesemia #Generalized weakness -Saline lock IV fluids. -Accuchecks QIDAC -Holding home diabetic medications -Change to High dose SS insulin QIDAC -Repeat CK and CMP in am -Urine myoglobin pending/send out -Monitor for compartment syndrome -Continue tylenol 650 mg q6h prn -Continue calcium supplementation 600 mg BID Chronic, stable conditions: #HTN, essential. Continue losartan 25 mg daily. #Orthostatic hypotension. Continue florinef 0.2 mg daily, midodrine 10 mg TID. #NSTEMI, history. Continue aspirin 81 mg daily. #Diabetic polyneuropathy. #Diabetic autonomic neuropathy. #Dyslipidemia. Holding crestor d/t rhabdomyolysis. #Obesity. #Anxiety. Continue lexapro 20 mg daily. #Conversion disorder. #Anemia d/t CKD stage 3, history. #Esophageal reflux. Continue omeprazole 20 mg daily. #Hepatic steatosis. #MRSA history. #Constipation. Continue Miralax 17 gm daily prn. Hospitalization details: #FEN. NS at 100 mL/hr; Na/K wnl, ADA. #PPX. Kishore stockings. Bed alarm. #Code Status. Full Code. #Emergency Contact. Yanique Huertas, sister. Disposition. --Contacted neurology [place] 1 call, recommend MRI brachial plexus with outpatient EMG if needed. --Since MRI, cont to hold Metformin and 48 hours thereafter, will need to adjust insulin, continue IV hydration at least until 3 hours after contrasted MRI --Change to High dose SS insulin QIDAC --Dietary staff to monitor patient CHO dietary choices --Likely swing bed Candidate with PT. Medicaid. --Strongly recommend long-term care placement, if not at a minimal life alert
[2020-07-28] MEDS ORDERED: Glucagon,Human Recombinant 1 MG Vial IM PRN (11:14)
[2020-07-28] MEDS ORDERED: 50% Dextrose in Water 50 ML Syringe IV PRN (11:14)
[2020-07-29] MEDS: Acetaminophen 325 MG Tab PO PRN (03:31)
[2020-07-29] MEDS: Midodrine 5 MG Tab PO SCH ×2 (06:05→12:23)
[2020-07-29 06:15] VITALS: PULSE 66
[2020-07-29] MEDS: Calcium Carbonate 600 MG Tab PO SCH (08:14)
[2020-07-29] MEDS: Fludrocortisone 0.1 MG Tab PO SCH (08:14)
[2020-07-29] MEDS: Aspirin 81 MG Tab.EC PO SCH (08:15)
[2020-07-29] MEDS: Multivitamins with Minerals/Iron/Folic Acid/Lycopene Tab PO SCH (08:15)
[2020-07-29] MEDS: Cholecalciferol (Vitamin D3) 25 MCG Tab PO SCH (08:15)
[2020-07-29] MEDS: Omeprazole 20 MG Cap.CR PO SCH (08:15)
[2020-07-29] MEDS: Escitalopram 10 MG Tab PO SCH (08:15)
[2020-07-29 08:16] VITALS: BP 141/71
[2020-07-29] MEDS: Insulin Aspart 100 Units/ML 3 ML Pen SUBCUT SCH ×2 (08:16→12:22)
[2020-07-29] MEDS: Losartan 25 MG Tab PO SCH (08:16)
--- NOTE | 2020-07-29 11:24 | PCM.DCSUM1 ---
Discharge Summary - Hospital Course Diagnosis: Stroke: No - Discharge Data Discharge Date: 07/29/20 Discharge Disposition: DC/Tfer to SNF 03 Condition: Good - Referral to Home Health Primary Care Physician: Mendez Hawley NP - Patient Summary/Data Consults: Consultations 07/26/20 09:29 Consult to Case Management/Wellness Coach [CONS] Routine 07/26/20 09:35 Consult to Physical Therapy [PT Evaluation and Treatment] [CONS] Routine - Patient Instructions Diet: Diabetic Diet, Weight Loss Diet Activity: As Tolerated Driving: Do Not Drive Showering/Bathing: May Shower Notify Provider of: Increased Pain - Discharge Plan *PRESCRIPTION DRUG MONITORING PROGRAM REVIEWED*: Not Applicable *COPY OF PRESCRIPTION DRUG MONITORING REPORT IN PATIENT SUDARSHAN: Not Applicable Home Medications: Home Meds Calcium Carbonate/Vitamin D3 [Calcium 600 + Vit D 400 Softgl] 1 tab PO 0800,1800 02/27/17 [History] Omeprazole 20 mg PO 0800 02/27/17 [History] Polyethylene Glycol 3350 [MiraLAX] 17 gm PO DAILY PRN 02/27/17 [History] Multivitamin with Minerals [Multivitamins with Minerals] 1 each PO DAILY 01/22/18 [History] Acetaminophen [Tylenol] 650 mg PO Q6H PRN tablet 03/04/18 [Rx] Escitalopram [Lexapro] 20 mg PO DAILY #30 tab 03/17/19 [Rx] Fludrocortisone [Florinef] 0.2 mg PO WITHBREAKFAST #30 tablet 03/17/19 [Rx] Ondansetron [Zofran ODT] 4 mg PO Q6H PRN tab.dis 03/17/19 [Rx] Aspirin [Halfprin] 81 mg PO DAILY 07/09/19 [History] Insulin Aspart [NovoLOG] 10 unit SUBCUT BID@1200,1800 07/09/19 [History] Losartan Potassium 25 mg PO DAILY 07/09/19 [History] metFORMIN HCl [Metformin HCl] 1,000 mg PO 0800,1800 07/09/19 [History] Insulin Glargine/Lixisenatide [Soliqua 100 Unit-33 Mcg/ml Pen] 35 units SQ BEDTIME 08/29/19 [History] Insulin Aspart [NovoLOG] 8 unit SUBCUT DAILY@0800 07/26/20 [History] Midodrine 10 mg PO 0700,1200,1800 07/26/20 [History] Rosuvastatin Calcium [Crestor] 40 mg PO DAILY 07/26/20 [History] glipiZIDE [Glipizide ER] 5 mg PO DAILY 07/26/20 [History] - Discharge Summary/Plan Comment DC Time >30 min.: Yes Discharge Summary/Plan Comment: Final diagnosis Rhabdomyolysis R/O brachial plexus injury, Syncopal episode T2DM, with hyperglycemia, Right knee pain with effusion, drained this admission Facial and left knee abrasions Leukocytosis with neutrophilia & leukopenia Hypocalcemia, minimally corrects with normal albumin Hypomagnesemia Generalized weakness Chronic, stable conditions: #HTN, essential. Continue losartan 25 mg daily. #Orthostatic hypotension. Continue florinef 0.2 mg daily, midodrine 10 mg TID. #NSTEMI, history. Continue aspirin 81 mg daily. #Diabetic polyneuropathy. #Diabetic autonomic neuropathy. #Dyslipidemia. Statin crestor #Obesity, add Wt loss diet #Anxiety. Continue lexapro 20 mg daily. #Conversion disorder, stable, remote hx. #Anemia d/t CKD stage 3, history. #Esophageal reflux. Continue omeprazole 20 mg daily. #Hepatic steatosis. #MRSA history. #Constipation. Continue Miralax 17 gm daily pr History summary "Maldonado" is a 59 yo WM who presented to the ED with hospital via ambulance after he experienced a glycemic episode and a fall at home eventually suffering rhabdomyolysis due to extended immobility. While in the ED it was noted that he had a white count of 17.7 with neutrophilia 84%. He had elevated CK and he was admitted for aggressive IV fluid hydration on entering of his renal function. Pertinent ED work-up: Xray of right shoulder; No official read however viewed the film myself, no dislocation or fracture is noted. Wrist x-ray, no fracture or dislocation however mild degenerative changes first CMP joint WBC 17.7 w/neutrophils 84.1% Hgb 13.2. Na 139 K 3.4 Creatinine 0.71 Lactic acid 1.7 LFTs unremarkable CK 409 Urine myoglobin obtained and is a send out COVID negative EKG NSR Head CT negative Hospital Course: 07/26/20: Patient sitting in chair during rounds. Complains of pain to his right knee, right shoulder and entire right arm with difficulty closing his right fist. Cranial nerves intact with strength 3/5 to RUE and 4/5 to LUE. Right knee with effusion and pain at patella and laterally. Dr. Paniagua in to examine patient as well and removed 20 cc of blood-tinged fluid fluid of his knee. VS T 98.4 F, HR 81, RR 16, BP 153/86, O2 sat 96% on room air. Na 138, K 3.4, Creatinine 0.63, Corrected calcium 8.5, total bilirubin 1.1, LFTs wnl, CK 693, Mg 1.2. 07/27/2020; Patient was sitting in chair feeling better however does complain of right hand pain and tingling in his fingers. Wrist x-ray this morning was negative. Patient did have wrist splint on this was loosened on rounds this morning. CK improving, count improved. 07/28/2020; CK dramatically improved down to 311--slightly over normal. Tolerating fluids well. Did have some mild tingling in his right hand however had good sensation. He was scheduled for MRI here at [facility] with contrast however of his large body habitus he was not able to fit in the MRI machine. IV fluids were eventually saline locked. He was taken adequate oral hydration. His sliding scale dose of insulin was changed to high as he did have hyperglycemia. No signs of compartment syndrome. Disposition --Patient will be discharged from hospital and placed in permanent long-term care setting I strongly feel as the patient's PCP he cannot adequately manage OR be managed at his home of his extensive chronic comorbidities due to frequent falls, hospitalizations, surgeries etc. Consultations: --Contacted neurology [place] 1 call, recommend MRI brachial plexus with outpatient EMG if needed. Will be ordered as outpatient. - General Info Functional Status: Reports: Pain Controlled, Tolerating Diet, Urinating. Denies: Ambulating - Review of Systems General: Denies: Fever, Weakness HEENT: Reports: No Symptoms Pulmonary: Reports: No Symptoms Cardiovascular: Reports: No Symptoms Gastrointestinal: Reports: No Symptoms Genitourinary: Reports: No Symptoms Musculoskeletal: Reports: Arm Pain, Hand Pain Neurological: Reports: Pre-Existing Deficit, Tingling, Difficulty Walking, Gait Disturbance. Denies: Headache, Numbness Psychiatric: Reports: Mood Lability (Right tearful as he contemplates going to long-term care today) - Patient Data Vitals - Most Recent: Last Vital Signs Temp 97.7 F 07/29/20 06:14 Pulse 66 07/29/20 06:14 Resp 18 07/29/20 06:14 BP 141/71 H 07/29/20 08:16 Pulse Ox 94 L 07/29/20 06:14 Weight - Most Recent: 295 lb I&O - Last 24 hours: Intake & Output 07/28/20 07/29/20 07/29/20 22:59 06:59 14:59 Intake Total 600 200 Output Total 1200 Balance -600 200 Lab Results - Last 24 hrs: Laboratory Results - last 24 hr 07/28/20 07/28/20 07/28/20 Range/Units 11:45 17:46 21:29 POC Glucose 279 H 249 H 282 H (74-100) mg/dL 07/29/20 Range/Units 07:41 POC Glucose 247 H (74-100) mg/dL Med Orders - Current: Current Medications Acetaminophen (Tylenol) 650 mg PO Q6H PRN PRN Reason: Pain Last Admin: 07/29/20 03:31 Dose: 650 mg Documented by: Aspirin (Halfprin) 81 mg PO DAILY [facility] Last Admin: 07/29/20 08:15 Dose: 81 mg Documented by: Calcium Carbonate/Glycine (Calcium Carbonate) 600 mg PO 0800,1800 [facility] Last Admin: 07/29/20 08:14 Dose: 600 mg Documented by: Cholecalciferol (Vitamin D3) 25 mcg PO DAILY [facility] Last Admin: 07/29/20 08:15 Dose: 25 mcg Documented by: Dextrose/Water (Dextrose 50% In Water) 50 ml IV ASDIRECTED PRN PRN Reason: Hypoglycemia Escitalopram Oxalate (Lexapro) 20 mg PO DAILY [facility] Last Admin: 07/29/20 08:15 Dose: 20 mg Documented by: Fludrocortisone Acetate (Florinef) 0.2 mg PO WITHBREAKFAST [facility] Last Admin: 07/29/20 08:14 Dose: 0.2 mg Documented by: Glucagon (Glucagen) 1 mg IM ASDIRECTED PRN PRN Reason: Hypoglycemia Insulin Aspart (Novolog) 0 unit SUBCUT WITHMEALSANDBED [facility]; Protocol Last Admin: 07/29/20 08:16 Dose: 6 units Documented by: Losartan Potassium (Cozaar) 25 mg PO DAILY [facility] Last Admin: 10/15/20 08:16 Dose: 25 mg Documented by: Midodrine (Midodrine) 10 mg PO 0700,1200,1800 [facility] Last Admin: 07/29/20 06:05 Dose: 10 mg Documented by: Multivitamins/Minerals (Centrum) 1 tab PO DAILY [facility] Last Admin: 07/29/20 08:15 Dose: 1 tab Documented by: Omeprazole (Omeprazole) 20 mg PO 0800 [facility] Last Admin: 07/29/20 08:15 Dose: 20 mg Documented by: Ondansetron HCl (Zofran Odt) 4 mg PO Q6H PRN PRN Reason: Nausea/Vomiting Last Admin: 07/27/20 05:42 Dose: 4 mg Documented by: Polyethylene Glycol (Miralax) 17 gm PO DAILY PRN PRN Reason: Constipation Discontinued Medications Bupivacaine HCl (Sensorcaine-Mpf 0.5%) 10 ml INJECT .STK-MED ONE Stop: 07/26/20 11:01 Sodium Chloride (Normal Saline) 1,000 mls @ 150 mls/hr IV ASDIRECTED [facility] Stop: 07/26/20 12:00 Sodium Chloride (Normal Saline) 1,000 mls @ 100 mls/hr IV ASDIRECTED [facility] Last Admin: 07/28/20 04:22 Dose: 100 mls/hr Documented by: Magnesium Sulfate 4 gm/ Premix 100 mls @ 25 mls/hr IV ONETIME ONE Stop: 07/26/20 14:14 Last Admin: 07/26/20 11:43 Dose: 25 mls/hr Documented by: Insulin Aspart (Novolog) 0 unit SUBCUT WITHMEALSANDBED [facility]; Protocol Last Admin: 07/28/20 08:06 Dose: 2 unit Documented by: Lidocaine HCl (Xylocaine-Mpf 1%) 2 ml INJECT .STK-MED ONE Stop: 07/26/20 11:01 - Exam Quality Assessment: Denies: Supplemental Oxygen General: Reports: Alert, Oriented, Cooperative, Mild Distress Neck: Reports: Supple Lungs: Reports: Clear to Auscultation, Normal Respiratory Effort Cardiovascular: Reports: Regular Rate, Regular Rhythm GI/Abdominal Exam: Soft Back Exam: Denies: CVA Tenderness (L), CVA Tenderness (R) Extremities: Normal Capillary Refill, Other (Right arm less tingling today, point tenderness pain dorsal, poor 1+ right hand strength flexion). No: Slow Capillary Refill, Joint Swelling, Increased Warmth, Mottled, Pallor, Redness Skin: Reports: Other (foreHead abrasion) Wound/Incisions: Reports: Healing Well Neurological: Reports: Normal Speech, Normal Tone, Strength Equal Bilateral, Sensation Intact Psy/Mental Status: Reports: Labile Mood
== END 2020-07-29 12:55 | DRG 638 ==
LOC: KA.MS 06:00
PROVIDERS: ADMIT Nurse Practitioner Family; ATTEND Family Medicine
PROC: 0S9C3ZZ Drainage of Right Knee Joint, Percutaneous Approach (ICD-10-PCS; principal; 2020-07-26)
DX: E11.65 Type 2 diabetes mellitus with hyperglycemia (principal); M62.82 Rhabdomyolysis; Z79.4 Long term (current) use of insulin; R55 Syncope and collapse; E83.42 Hypomagnesemia; E83.51 Hypocalcemia; R53.1 Weakness; M25.461 Effusion, right knee; I10 Essential (primary) hypertension; I95.1 Orthostatic hypotension; I25.2 Old myocardial infarction; E11.42 Type 2 diabetes mellitus with diabetic polyneuropathy; E11.43 Type 2 diabetes mellitus with diabetic autonomic (poly)neuropathy; E78.5 Hyperlipidemia, unspecified; F41.9 Anxiety disorder, unspecified; D63.1 Anemia in chronic kidney disease; K21.9 Gastro-esophageal reflux disease without esophagitis; K59.00 Constipation, unspecified; K76.0 Fatty (change of) liver, not elsewhere classified; E11.22 Type 2 diabetes mellitus with diabetic chronic kidney disease; I12.9 Hypertensive chronic kidney disease with stage 1 through stage 4 chronic kidney disease, or unspecified chronic kidney disease; N18.30 Chronic kidney disease, stage 3 unspecified; W18.30XA Fall on same level, unspecified, initial encounter; Y92.009 Unspecified place in unspecified non-institutional (private) residence as the place of occurrence of the external cause; Z20.828 Contact with and (suspected) exposure to other viral communicable diseases
CPT/HCPCS: 36415; 73030-RT; 73110-RT; 73562-RT; 80053; 82550; 82962; 83735; 85025; 97110-GP; 97162-GP; A9270-GY; J1815-GY; J2001; J3475; J3490; J7030; U0002

== ENCOUNTER 2020-11-17 10:17 | Observation (INO) | payer MEDICARE, OTHER, MEDICAID ==
[2020-11-17] MEDS ORDERED: Sodium Chloride 0.9% 10 ML Syringe FLUSH PRN (10:21)
[2020-11-17] MEDS ORDERED: Sodium Chloride 0.9% 1,000 ML IV ONE (10:23)
--- NOTE | 2020-11-17 10:31 | EDM.PDOC ---
ED HPI GENERAL MEDICAL PROBLEM - General Chief Complaint: Chest Pain Stated Complaint: CHEST PAIN Time Seen by Provider: 11/17/20 10:17 Source of Information: Reports: Patient History Limitations: Reports: No Limitations - History of Present Illness INITIAL COMMENTS - FREE TEXT/NARRATIVE: 60 YO WM PRESENTS TO ER BY EMS WITH EPISODE OF CHEST PAIN WHILE AMBULATING BACK TO BED FROM BATHROOM. PT REPORTS HE DEVELOPED LEFT SIDED CHEST PAIN WITH RADIATION TO LEFT ARM WITH ASSOCIATED SHORTNESS OF BREATH, DIAPHORESIS AND LIGHTHEADEDNESS/NEAR SYNCOPE. PT HAD RIGHT TKA 11/11/2020 [address] [place] [address] DR HERNANDEZ. PT WAS DISCHARGED 3 DAYS LATER WITHOUT COMPLICATIONS. PT WITH PMH OF IDDM- POORLY CONTROLLED, OBESITY, AND ORTHOSTATIC HYPOTENSION. PT WAS GIVEN NITRO SL X 2 WITHOUT IMPROVEMENT. PT WAS GIVEN MORPHINE IN ROUTE WITH IMPROVEMENT IN PAIN AND SYMPTOMS. Onset: Today Onset Date: 11/17/20 Duration: Minutes: Location: Reports: Chest Quality: Reports: Ache Severity: Moderate Improves with: Reports: Rest Worsens with: Reports: Movement Context: Reports: Activity Associated Symptoms: Reports: Chest Pain, Diaphoresis, Nausea/Vomiting, S hortness of Breath. 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: Reports: Nitroglycerin, Other (see below) (MORPHINE) Chest Pain Score (Numeric/FACES): 6 - Related Data Allergies Allergy/AdvReac Type Severity Reaction Status Date / Time vancomycin Allergy Intermediate Rash Verified 11/17/20 10:59 Sulfa (Sulfonamide Allergy Shortness Verified 11/17/20 10:59 Antibiotics) of Breath Home Meds: Home Meds Omeprazole 20 mg PO 0800 02/27/17 [History] Polyethylene Glycol 3350 [MiraLAX] 17 gm PO DAILY PRN 02/27/17 [History] Escitalopram [Lexapro] 20 mg PO DAILY #30 tab 03/17/19 [Rx] Fludrocortisone [Florinef] 0.2 mg PO WITHBREAKFAST #30 tablet 03/17/19 [Rx] Ondansetron [Zofran ODT] 4 mg PO Q6H PRN tab.dis 03/17/19 [Rx] Insulin Aspart [NovoLOG] 10 unit SUBCUT BID@1200,1800 07/09/19 [History] Losartan Potassium 25 mg PO DAILY 07/09/19 [History] metFORMIN HCl [Metformin HCl] 1,000 mg PO 0800,1800 07/09/19 [History] Insulin Glargine/Lixisenatide [Soliqua 100 Unit-33 Mcg/ml Pen] 50 units SQ BEDTIME 08/29/19 [History] Insulin Aspart [NovoLOG] 8 unit SUBCUT DAILY@0800 07/26/20 [History] Midodrine 10 mg PO 0700,1200,1800 07/26/20 [History] Rosuvastatin Calcium [Crestor] 40 mg PO DAILY 07/26/20 [History] glipiZIDE [Glipizide ER] 5 mg PO DAILY 07/26/20 [History] Acetaminophen 650 mg PO BID 11/17/20 [History] Acetaminophen [Tylenol] 650 mg PO DAILY PRN 11/17/20 [History] Apixaban [Eliquis] 2.5 mg PO BID 11/17/20 [History] Magnesium Hydroxide [Milk of Magnesia] 30 ml PO DAILY PRN 11/17/20 [History] Sennosides/Docusate Sodium [Senna-S 8.6-50 mg Tablet] 1 tab PO BID 11/17/20 [History] oxyCODONE HCl [Oxycodone HCl] 5 mg PO Q4H PRN 11/17/20 [History] traMADol HCl [Tramadol HCl] 50 - 100 mg PO QID 11/17/20 [History] Past Medical History HEENT History: Reports: Impaired Vision Cardiovascular History: Reports: High Cholesterol, Hypertension Other Cardiovascular History: Orthostatic Hypotension Respiratory History: Reports: None Gastrointestinal History: Reports: GERD Genitourinary History: Reports: Chronic Renal Insuffiency Musculoskeletal History: Reports: Amputation Other Musculoskeletal History: 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 Neurological History: Reports: Neuropathy, Diabetic Psychiatric History: Reports: Anxiety, Depression, Panic Attack Endocrine/Metabolic History: Reports: Diabetes, Type II, IDDM, Obesity/BMI 30+ Hematologic History: Reports: None Immunologic History: Reports: None Oncologic (Cancer) History: Reports: None Dermatologic History: Reports: Cellulitis - Infectious Disease History Infectious Disease History: Reports: MRSA - Past Surgical History Head Surgeries/Procedures: Reports: None HEENT Surgical History: Reports: None Cardiovascular Surgical History: Reports: None Respiratory Surgical History: Reports: None GI Surgical History: Reports: Appendectomy, Cholecystectomy, Colonoscopy Endocrine Surgical History: Reports: None Neurological Surgical History: Reports: None Musculoskeletal Surgical History: Reports: Amputation, Arthroscopic Knee Dermatological Surgical History: Reports: None Social & Family History - Family History Family Medical History: No Pertinent Family History HEENT: Reports: None Cardiac: Reports: None Respiratory: Reports: None GI: Reports: None : Reports: None OBGYN: Reports: None Musculoskeletal: Reports: None Neurological: Reports: None Psychiatric: Reports: None Endocrine/Metabolic: Reports: Diabetes, type II Hematologic: Reports: None Immunologic: Reports: None Dermatologic: Reports: None Oncologic: Reports: Prostate - Caffeine Use Caffeine Use: Reports: Soda Other Caffeine Use: Diet Coke Caffeine Use Comment: 1-2 per day ED ROS GENERAL - Review of Systems Review Of Systems: See Below Constitutional: Reports: Diaphoresis HEENT: Reports: No Symptoms Respiratory: Reports: Shortness of Breath Cardiovascular: Reports: Chest Pain, Lightheadedness Endocrine: Reports: No Symptoms GI/Abdominal: Reports: Nausea : Reports: No Symptoms Musculoskeletal: Reports: Arm Pain Skin: Reports: No Symptoms Neurological: Reports: No Symptoms Psychiatric: Reports: No Symptoms Hematologic/Lymphatic: Reports: No Symptoms Immunologic: Reports: No Symptoms ED EXAM, GENERAL - Physical Exam Exam: See Below Exam Limited By: No Limitations General Appearance: Alert, WD/WN, No Apparent Distress Eye Exam: Bilateral Eye: Normal Inspection Head: Atraumatic, Normocephalic Neck: Normal Inspection, Supple, Non-Tender, Full Range of Motion Respiratory/Chest: No Respiratory Distress, Lungs Clear, Normal Breath Sounds, No Accessory Muscle Use, Chest Non-Tender Cardiovascular: Normal Peripheral Pulses, Regular Rate, Rhythm, No Edema, No Gallop, No JVD, No Murmur, No Rub GI/Abdominal: Normal Bowel Sounds, Soft, Non-Tender, No Organomegaly, No Distention, No Abnormal Bruit, No Mass Back Exam: Normal Inspection, Full Range of Motion, NT Extremities: Normal Inspection, Normal Range of Motion, Non-Tender, Normal Capillary Refill, No Pedal Edema Neurological: Alert, Oriented, CN II-XII Intact, Normal Cognition, Normal Gait, Normal Reflexes, No Motor/Sensory Deficits Psychiatric: Normal Affect, Normal Mood Skin Exam: Warm, Dry, Intact, Normal Color, No Rash Lymphatic: No Adenopathy #1 Interpretation EKG Date: 11/17/20 Time: 10:44 Rhythm: NSR Rate (Beats/Min): 97 [place]: Normal P-Wave: Present QRS: Normal ST-T: Normal QT: Normal Course - Vital Signs Last Recorded V/S: Last Vital Signs Temp 96.7 F L 11/17/20 10:25 Pulse 90 11/17/20 12:22 Resp 16 11/17/20 12:22 BP 135/74 11/17/20 12:22 Pulse Ox 98 11/17/20 12:22 - Orders/Labs/Meds Orders: Active Orders 24 hr Category Date Time Status Patient Status Manage Transfer [TRANSFER] Routine ADT 11/17/20 12:34 Active Patient Status [ADT] Routine ADT 11/17/20 12:35 Active Accu Check [Blood Glucose Check, Bedside] [RC] ONETIME Care 11/17/20 10:23 Active EKG Documentation Completion [RC] ASDIRECTED Care 11/17/20 10:23 Active Oxygen Therapy [RC] PRN Care 11/17/20 12:35 Active Peripheral IV Care [RC] . DIRECTED Care 11/17/20 10:23 Active VTE/DVT Education [RC] PER UNIT ROUTINE Care 11/17/20 12:35 Active Vital Signs [RC] Q4H Care 11/17/20 12:35 Active Heart Healthy Diet [DIET] Diet 11/17/20 Lunch Active CORONAVIRUS COVID-19 RAPID [MOLEC] Stat Lab 11/17/20 12:34 Ordered Sodium Chloride 0.9% [Normal Saline] 100 ml Med 11/17/20 11:45 Active IV ASDIRECTED Sodium Chloride 0.9% [Normal Saline] 50 ml Med 11/17/20 10:45 Active IV ASDIRECTED Sodium Chloride 0.9% [Saline Flush] Med 11/17/20 10:21 Active 10 ml FLUSH Q8HR PRN Peripheral IV Insertion Adult [OM.PC] Routine Oth 11/17/20 10:21 Ordered Resuscitation Status Routine Resus Stat 11/17/20 12:35 Ordered EKG 12 Lead [EK] Stat Ther 11/17/20 10:21 Ordered Medication Orders Sodium Chloride (Normal Saline) 50 mls @ 200 mls/min IV ASDIRECTED [facility]LAN Last Admin: 11/17/20 11:20 Dose: 200 mls/min Documented by: [id number] Sodium Chloride (Normal Saline) 100 mls @ 200 mls/hr IV ASDIRECTED [facility] Sodium Chloride (Saline Flush) 10 ml FLUSH Q8HR PRN PRN Reason: keep vein open Labs: Laboratory Tests 11/17/20 11/17/20 11/17/20 Range/Units 10:15 10:15 10:15 WBC 13.54 H (5.00-10.00) 10^3/uL RBC 3.67 L (4.50-6.00) 10^6/uL Hgb 11.5 L (13.0-17.0) g/dL Hct 34.3 L (40.0-52.0) % MCV 93.5 H (82.0-92.0) fL MCH 31.3 H (27.0-31.0) pg MCHC 33.5 (32.0-36.0) g/dL RDW 12.5 (11.5-14.5) % Plt Count 416 H D (150-400) 10^3/uL MPV 10.5 H (7.4-10.4) fL Immature Gran % (Auto) 0.6 (0.0-5.0) % Neut % (Auto) 68.7 (50.0-70.0) % Lymph % (Auto) 18.7 L (20.0-40.0) % Clinch % (Auto) 8.3 H (2.0-8.0) % Eos % (Auto) 3.5 H (1.0-3.0) % Baso % (Auto) 0.2 (0.0-1.0) % Neut # (Auto) 9.30 H (2.50-7.00) 10^3/uL Lymph # (Auto) 2.53 (1.00-4.00) 10^3/uL Clinch # (Auto) 1.12 H (0.10-0.80) 10^3/uL Eos # (Auto) 0.48 H (0.10-0.30) 10^3/uL Baso # (Auto) 0.03 (0.00-0.10) 10^3/uL Immature Gran # (Auto) 0.08 (0.00-0.50) 10^3/uL PT 9.8 (9.2-11.2) SEC INR 1.0 (0.9-1.1) APTT 29.2 (22.8-31.4) SEC Sodium 133 L (136-145) mmol/L Potassium 3.8 (3.5-5.1) mmol/L Chloride 94 L (98-107) mmol/L Carbon Dioxide 28.0 (21.0-32.0) mmol/L Anion Gap 14.8 (5-15) mmol/L BUN 19 H (7-18) mg/dL Creatinine 0.77 (0.51-1.17) mg/dL Est Cr Clr Drug Dosing 115.30 mL/min Estimated GFR (MDRD) > 60 mL/min Glucose 347 H (70-140) mg/dL Calcium 8.7 (8.7-10.3) mg/dL Total Bilirubin 2.2 H (0.2-1.0) mg/dL AST 23 (15-37) U/L ALT 41 (14-63) U/L Alkaline Phosphatase 103 (46-116) U/L Creatine Kinase 67 (26-276) U/L CK-MB (CK-2) 1.56 (0.00-3.60) ng/mL Troponin I < 0.017 (0.000-0.056) ng/mL Total Protein 7.4 (6.4-8.2) g/dL Albumin 3.04 L (3.40-5.00) g/dL Meds: Medications Generic Name Dose Route Start Last Admin Trade Name Freq PRN Reason Stop Dose Admin Sodium Chloride 50 mls @ 200 mls/min 11/17/20 10:45 11/17/20 11:20 Normal Saline IV 200 mls/min ASDIRECTED RUSLAN Administration Sodium Chloride 100 mls @ 200 mls/hr 11/17/20 11:45 Normal Saline IV ASDIRECTED RUSLAN Sodium Chloride 10 ml 11/17/20 10:21 Saline Flush FLUSH Q8HR PRN keep vein open Discontinued Medications Generic Name Dose Route Start Last Admin Trade Name Freq PRN Reason Stop Dose Admin Sodium Chloride 1,000 mls @ 999 mls/hr 11/17/20 10:23 11/17/20 11:43 Normal Saline IV 11/17/20 11:23 999 mls/hr .BOLUS ONE Administration Iopamidol 100 ml 11/17/20 10:44 Isovue-370 (76%) IV 11/17/20 10:45 ONETIME ONE Iopamidol 75 ml 11/17/20 11:39 11/17/20 11:20 Isovue-370 (76%) IVPUSH 11/17/20 11:40 75 ml ONETIME ONE Administration Morphine Sulfate 1 mg 11/17/20 11:29 11/17/20 11:56 Morphine IVPUSH 11/17/20 11:30 Not Given ONETIME ONE Morphine Sulfate 4 mg 11/17/20 11:30 11/17/20 11:45 Morphine IVPUSH 11/17/20 11:31 4 mg ONETIME ONE Administration Ondansetron HCl 4 mg 11/17/20 11:29 11/17/20 11:35 Zofran IVPUSH 11/17/20 11:30 4 mg ONETIME ONE Administration - Radiology Interpretation Free Text/Narrative:: CXR-NAD CT THORAX- NO PE Departure - Departure Time of Disposition: 12:10 Disposition: Refer to Observation Condition: Good Clinical Impression: Hyperglycemia Chest pain Qualifiers: Ischemic chest pain type: stable angina pectoris Referrals: Mendez Hawley, EMERY WHEEL [employer]OLDER [Primary Care Provider] - Forms: ED Department Discharge Sepsis Event Note (ED) - Focused Exam Vital Signs: Vital Signs Temp Pulse Resp BP Pulse Ox 11/17/20 12:22 90 16 135/74 98 11/17/20 12:00 92 18 120/71 98 11/17/20 11:45 94 20 133/70 99 11/17/20 11:30 95 25 H 140/77 96 11/17/20 11:00 97 18 134/67 98 11/17/20 10:30 102 H 13 131/64 93 L 11/17/20 10:25 96.7 F L 106 H 20 125/69 93 L - My Orders Last 24 Hours: My Active Orders 11/17/20 10:21 Sodium Chloride 0.9% [Saline Flush] 10 ml FLUSH Q8HR PRN Peripheral IV Insertion Adult [OM.PC] Routine EKG 12 Lead [EK] Stat 11/17/20 10:23 Accu Check [Blood Glucose Check, Bedside] [RC] ONETIME EKG Documentation Completion [RC] ASDIRECTED Peripheral IV Care [RC] . DIRECTED 11/17/20 10:45 Sodium Chloride 0.9% [Normal Saline] 50 ml IV ASDIRECTED 11/17/20 11:45 Sodium Chloride 0.9% [Normal Saline] 100 ml IV ASDIRECTED 11/17/20 Lunch Heart Healthy Diet [DIET] 11/17/20 12:34 Patient Status Manage Transfer [TRANSFER] Routine CORONAVIRUS COVID-19 RAPID [MOLEC] Stat 11/17/20 12:35 Patient Status [ADT] Routine Oxygen Therapy [RC] PRN VTE/DVT Education [RC] PER UNIT ROUTINE Vital Signs [RC] Q4H Resuscitation Status Routine - Assessment/Plan Last 24 Hours: My Active Orders 11/17/20 10:21 Sodium Chloride 0.9% [Saline Flush] 10 ml FLUSH Q8HR PRN Peripheral IV Insertion Adult [OM.PC] Routine EKG 12 Lead [EK] Stat 11/17/20 10:23 Accu Check [Blood Glucose Check, Bedside] [RC] ONETIME EKG Documentation Completion [RC] ASDIRECTED Peripheral IV Care [RC] . DIRECTED 11/17/20 10:45 Sodium Chloride 0.9% [Normal Saline] 50 ml IV ASDIRECTED 11/17/20 11:45 Sodium Chloride 0.9% [Normal Saline] 100 ml IV ASDIRECTED 11/17/20 Lunch Heart Healthy Diet [DIET] 11/17/20 12:34 Patient Status Manage Transfer [TRANSFER] Routine CORONAVIRUS COVID-19 RAPID [MOLEC] Stat 11/17/20 12:35 Patient Status [ADT] Routine Oxygen Therapy [RC] PRN VTE/DVT Education [RC] PER UNIT ROUTINE Vital Signs [RC] Q4H Resuscitation Status Routine Assessment:: 1. CHEST PAIN 2. HYPERGLYCEMIA Plan: 1. ADMIT TO MEDICINE- DR BARRON-MARY- OBSERVATION 2. ASA/NTRO/O2/SUPPORTIVE CARE 3. REPEAT TROP I Q6 X 3
[2020-11-17] MEDS ORDERED: Iopamidol 755 Mg/ML 100 ML Bottle IV ONE (10:44)
[2020-11-17] MEDS ORDERED: Sodium Chloride 0.9% 50 ML IV SCH (10:45)
[2020-11-17 10:55] LABS: PTT,PARTIAL THROMBOPLSTIN TIME 29.2 SEC (22.8-31.4)
[2020-11-17 11:01] LABS: ANION GAP 14.8 mmol/L (5-15); CHLORIDE,CL 94 mmol/L (98-107); SODIUM,NA 133 mmol/L (136-145)
--- NOTE | 2020-11-17 11:04 | CR ---
[id number] RAD/RAD Chest PA or AP 1V EXAM: SINGLE VIEW CHEST. INDICATION: CHEST PAIN COMPARISON: CORRELATION IS MADE WITH MARCH 05, 2019 FINDINGS: The lungs are clear The cardiomediastinal contour is prominent but stable IMPRESSION: STABLE CHEST Abundio Garcia MD 11/17/20 [id number] Thank you for allowing us to participate in the care of your patient.
[2020-11-17] MEDS ORDERED: Ondansetron 4 MG/2 ML SDV IVPUSH ONE (11:29)
[2020-11-17] MEDS ORDERED: Morphine 2 MG/ML SYRINGE IVPUSH ONE (11:29)
[2020-11-17] MEDS ORDERED: Morphine 4 MG/ML Syringe IVPUSH ONE (11:30)
[2020-11-17] MEDS ORDERED: Iopamidol 755 Mg/ML 75 ML Bottle IVPUSH ONE (11:39)
[2020-11-17] MEDS ORDERED: Sodium Chloride 0.9% 100 ML IV SCH (11:45)
--- NOTE | 2020-11-17 11:56 | CT ---
[id number] CT/CT Chest W IV EXAM: CT ANGIOGRAM CHEST INDICATION: CHEST PAIN. COMPARISON: 07/21/2013. DISCUSSION: The pulmonary arteries are normal in appearance with no emboli identified. The lungs are clear with no nodule, infiltrate or mass identified.No pleural or pericardial effusion. Coronary artery disease. A few scattered atherosclerotic calcifications of the aorta. No mediastinal, hilar or axillary lymphadenopathy. The imaged upper abdomen and osseous structures are unremarkable. Minimal inflammation within the superficial soft tissues of the left anterior lower chest/upper abdominal wall. IMPRESSION: 1. No evidence of acute pulmonary embolism. Jarvis Kaba DO 11/17/20 1156 Thank you for allowing us to participate in the care of your patient.
[2020-11-17] MEDS ORDERED: Magnesium Hydroxide 400 MG/5 ML Susp 30 ML Cup PO PRN (13:15)
[2020-11-17] MEDS ORDERED: Glucagon,Human Recombinant 1 MG Vial IM PRN (13:15)
[2020-11-17] MEDS ORDERED: 50% Dextrose in Water 50 ML Syringe IV PRN (13:15)
[2020-11-17] MEDS ORDERED: Acetaminophen 325 MG Tab PO PRN (13:15)
[2020-11-17] MEDS ORDERED: Ondansetron 4 MG Tab.DIS PO PRN (13:15)
[2020-11-17] MEDS ORDERED: Polyethylene Glycol 3350 Powder 17 GM Packet PO PRN (13:15)
[2020-11-17] MEDS: Insulin Aspart 100 Units/ML 3 ML Pen SUBCUT SCH ×2 (14:11→17:58)
[2020-11-17] MEDS ORDERED: Nitroglycerin 0.4 MG Tab.SL SL PRN (14:30)
[2020-11-17] MEDS ORDERED: EPINEPHrine 1:10,000 1 MG/10 ML Syringe IVPUSH PRN (14:30)
[2020-11-17] MEDS ORDERED: Lidocaine 2% 100 MG/5 ML Syringe IVPUSH PRN (14:30)
[2020-11-17] MEDS ORDERED: Atropine 0.1 MG/ML 10 ML Syringe IVPUSH PRN (14:30)
[2020-11-17] MEDS: oxyCODONE 5 MG Tab PO PRN (14:49)
[2020-11-17] MEDS ORDERED: traMADol 50 MG Tab PO SCH (17:00)
[2020-11-17] MEDS: Midodrine 5 MG Tab PO SCH (17:56)
[2020-11-17] MEDS ORDERED: traMADol 50 MG Tab PO PRN (17:57)
[2020-11-17] MEDS ORDERED: metFORMIN 500 MG Tab PO SCH (18:00)
[2020-11-17] MEDS: traMADol 50 MG Tab PO SCH ×2 (18:58→23:36)
[2020-11-17] MEDS: Acetaminophen 325 MG Tab PO SCH (20:51)
[2020-11-17] MEDS: Apixaban 5 MG Tab PO SCH (20:51)
[2020-11-18] MEDS: oxyCODONE 5 MG Tab PO PRN (01:01)
[2020-11-18] MEDS: Midodrine 5 MG Tab PO SCH ×2 (06:00→12:08)
[2020-11-18] MEDS: traMADol 50 MG Tab PO SCH ×2 (06:00→12:09)
[2020-11-18] MEDS ORDERED: Fludrocortisone 0.1 MG Tab PO SCH (08:00)
[2020-11-18] MEDS ORDERED: Insulin Aspart 100 Units/ML 3 ML Pen SUBCUT SCH (08:00)
[2020-11-18] MEDS ORDERED: Omeprazole 20 MG Cap.CR PO SCH (08:00)
[2020-11-18] MEDS: Acetaminophen 325 MG Tab PO SCH (08:10)
[2020-11-18] MEDS: Apixaban 5 MG Tab PO SCH (08:15)
[2020-11-18] MEDS ORDERED: glipiZIDE 5 MG Tab.ER PO SCH (09:00)
[2020-11-18] MEDS ORDERED: Rosuvastatin 10 MG Tab PO SCH (09:00)
[2020-11-18] MEDS ORDERED: Escitalopram 10 MG Tab PO SCH (09:00)
[2020-11-18] MEDS ORDERED: Losartan 25 MG Tab PO SCH (09:00)
--- NOTE | 2020-11-18 11:09 | PCM.HP.2 ---
H&P History of Present Illness - General Date of Service: 11/18/20 Admit Problem/Dx: Admission Diagnosis/Problem Admission Diagnosis/Problem Chest pain Chest Pain Score (Numeric/FACES): 6 Right Knee Pain Score (Numeric/FACES): 6 - Related Data Allergies/Adverse Reactions: Allergies Allergy/AdvReac Type Severity Reaction Status Date / Time vancomycin Allergy Intermediate Rash Verified 11/17/20 10:59 Sulfa (Sulfonamide Allergy Shortness Verified 11/17/20 10:59 Antibiotics) of Breath Home Medications: Home Meds Omeprazole 20 mg PO 0800 02/27/17 [History] Polyethylene Glycol 3350 [MiraLAX] 17 gm PO DAILY PRN 02/27/17 [History] Escitalopram [Lexapro] 20 mg PO DAILY #30 tab 03/17/19 [Rx] Fludrocortisone [Florinef] 0.2 mg PO WITHBREAKFAST #30 tablet 03/17/19 [Rx] Ondansetron [Zofran ODT] 4 mg PO Q6H PRN tab.dis 03/17/19 [Rx] Insulin Aspart [NovoLOG] 10 unit SUBCUT BID@1200,1800 07/09/19 [History] Losartan Potassium 25 mg PO DAILY 07/09/19 [History] metFORMIN HCl [Metformin HCl] 1,000 mg PO 0800,1800 07/09/19 [History] Insulin Glargine/Lixisenatide [Soliqua 100 Unit-33 Mcg/ml Pen] 50 units SQ BEDTIME 08/29/19 [History] Insulin Aspart [NovoLOG] 8 unit SUBCUT DAILY@0800 07/26/20 [History] Midodrine 10 mg PO 0700,1200,1800 07/26/20 [History] Rosuvastatin Calcium [Crestor] 40 mg PO DAILY 07/26/20 [History] glipiZIDE [Glipizide ER] 5 mg PO DAILY 07/26/20 [History] Acetaminophen 650 mg PO BID 11/17/20 [History] Acetaminophen [Tylenol] 650 mg PO DAILY PRN 11/17/20 [History] Apixaban [Eliquis] 2.5 mg PO BID 11/17/20 [History] Magnesium Hydroxide [Milk of Magnesia] 30 ml PO DAILY PRN 11/17/20 [History] Sennosides/Docusate Sodium [Senna-S 8.6-50 mg Tablet] 1 tab PO BID 11/17/20 [History] oxyCODONE HCl [Oxycodone HCl] 5 mg PO Q4H PRN 11/17/20 [History] traMADol HCl [Tramadol HCl] 50 - 100 mg PO QID 11/17/20 [History] Nitroglycerin [Nitrostat] 0.4 mg SL ASDIRECTED PRN #24 tab.sl 11/18/20 [Rx] Past Medical History HEENT History: Reports: Impaired Vision Cardiovascular History: Reports: High Cholesterol, Hypertension Other Cardiovascular History: Orthostatic Hypotension Respiratory History: Reports: None Gastrointestinal History: Reports: GERD Genitourinary History: Reports: Chronic Renal Insuffiency Musculoskeletal History: Reports: Amputation Other Musculoskeletal History: 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 Neurological History: Reports: Neuropathy, Diabetic Psychiatric History: Reports: Anxiety, Depression, Panic Attack Endocrine/Metabolic History: Reports: Diabetes, Type II, IDDM, Obesity/BMI 30+ Hematologic History: Reports: None Immunologic History: Reports: None Oncologic (Cancer) History: Reports: None Dermatologic History: Reports: Cellulitis - Infectious Disease History Infectious Disease History: Reports: MRSA - Past Surgical History Head Surgeries/Procedures: Reports: None HEENT Surgical History: Reports: None Cardiovascular Surgical History: Reports: None Respiratory Surgical History: Reports: None GI Surgical History: Reports: Appendectomy, Cholecystectomy, Colonoscopy Male Surgical History: Reports: None Endocrine Surgical History: Reports: None Neurological Surgical History: Reports: None Musculoskeletal Surgical History: Reports: Amputation, Arthroscopic Knee, Knee Replacement, Other (See Below) Other Musculoskeletal Surgeries/Procedures:: TKA surgery to right knee 11/11/20 Dermatological Surgical History: Reports: None Social & Family History - Family History Family Medical History: No Pertinent Family History HEENT: Reports: None Cardiac: Reports: None Respiratory: Reports: None GI: Reports: None : Reports: None OBGYN: Reports: None Musculoskeletal: Reports: None Neurological: Reports: None Psychiatric: Reports: None Endocrine/Metabolic: Reports: Diabetes, type II Hematologic: Reports: None Immunologic: Reports: None Dermatologic: Reports: None Oncologic: Reports: Prostate - Tobacco Use Tobacco Use Status *Q: Never Tobacco User - Caffeine Use Caffeine Use: Reports: Coffee Other Caffeine Use: Diet Coke Caffeine Use Comment: 1-2 per day - Recreational Drug Use Recreational Drug Use: No H&P Review of Systems - Review of Systems: Review Of Systems: See Below General: Reports: No Symptoms HEENT: Reports: No Symptoms Cardiovascular: Denies: Chest Pain, Palpitations, Dyspnea on Exertion, Orthopnea, PND, Edema, Lightheadedness Gastrointestinal: Denies: No Symptoms Genitourinary: Reports: No Symptoms Skin: Reports: Bruising, Wound (Right knee postoperative) Psychiatric: Denies: Confusion Neurological: Reports: No Symptoms Hematologic/Lymphatic: Reports: No Symptoms Immunologic: Reports: No Symptoms Exam - Exam Exam: See Below - Vital Signs Vital Signs: Last Vital Signs Temp 96.8 F L 11/18/20 06:17 Pulse 87 11/18/20 06:17 Resp 20 11/18/20 06:17 BP 109/60 11/18/20 08:14 Pulse Ox 95 11/18/20 06:25 Weight: 268 lb 8 oz - Exam Quality Assessment: DVT Prophylaxis. No: Supplemental Oxygen General: Alert, Oriented, Cooperative HEENT: PERRLA, Hearing Intact, Mucosa Moist & [place], Nares Patent, Normal Nasal Septum, Posterior Pharynx Clear, Conjunctiva Clear, EOMI, EACs Clear, TMs Clear Neck: Supple, Trachea Midline, 2 Lungs: Clear to Auscultation, Normal Respiratory Effort Cardiovascular: Regular Rate, Regular Rhythm GI/Abdominal Exam: Soft, No Distention (Male) Exam: Deferred Rectal (Males) Exam: Deferred Extremities: No Pedal Edema, Other (Right knee, postoperative replacement, generalized edema, dressing intact) Peripheral Pulses: 2+: Posterior Tibial (R), Dorsalis Pedis (R) Neurological: Normal Speech, Sensation Intact Neuro Extensive - Mental Status: Alert, Oriented x3 - Patient Data Lab Results Last 24 hrs: Laboratory Results - last 24 hr 11/17/20 11/17/20 11/17/20 Range/Units 10:15 12:34 14:02 Sodium 133 L (136-145) mmol/L Potassium 3.8 (3.5-5.1) mmol/L Chloride 94 L (98-107) mmol/L Carbon Dioxide 28.0 (21.0-32.0) mmol/L Anion Gap 14.8 (5-15) mmol/L BUN 19 H (7-18) mg/dL Creatinine 0.77 (0.51-1.17) mg/dL Est Cr Clr Drug Dosing 115.30 mL/min Estimated GFR (MDRD) > 60 mL/min Glucose 347 H (70-140) mg/dL POC Glucose 320 H (74-100) mg/dL Calcium 8.7 (8.7-10.3) mg/dL Total Bilirubin 2.2 H (0.2-1.0) mg/dL AST 23 (15-37) U/L ALT 41 (14-63) U/L Alkaline Phosphatase 103 (46-116) U/L Creatine Kinase 67 (26-276) U/L CK-MB (CK-2) 1.56 (0.00-3.60) ng/mL Troponin I < 0.017 (0.000-0.056) ng/mL Total Protein 7.4 (6.4-8.2) g/dL Albumin 3.04 L (3.40-5.00) g/dL SARS CoV-2 RNA Rapid GO Negative (NEGATIVE) 11/17/20 11/17/20 11/17/20 Range/Units 16:35 17:59 20:51 Sodium (136-145) mmol/L Potassium (3.5-5.1) mmol/L Chloride (98-107) mmol/L Carbon Dioxide (21.0-32.0) mmol/L Anion Gap (5-15) mmol/L BUN (7-18) mg/dL Creatinine (0.51-1.17) mg/dL Est Cr Clr Drug Dosing mL/min Estimated GFR (MDRD) mL/min Glucose (70-140) mg/dL POC Glucose 258 H 261 H (74-100) mg/dL Calcium (8.7-10.3) mg/dL Total Bilirubin (0.2-1.0) mg/dL AST (15-37) U/L ALT (14-63) U/L Alkaline Phosphatase (46-116) U/L Creatine Kinase (26-276) U/L CK-MB (CK-2) (0.00-3.60) ng/mL Troponin I < 0.017 (0.000-0.056) ng/mL Total Protein (6.4-8.2) g/dL Albumin (3.40-5.00) g/dL SARS CoV-2 RNA Rapid GO (NEGATIVE) 11/17/20 Range/Units 22:16 Sodium (136-145) mmol/L Potassium (3.5-5.1) mmol/L Chloride (98-107) mmol/L Carbon Dioxide (21.0-32.0) mmol/L Anion Gap (5-15) mmol/L BUN (7-18) mg/dL Creatinine (0.51-1.17) mg/dL Est Cr Clr Drug Dosing mL/min Estimated GFR (MDRD) mL/min Glucose (70-140) mg/dL POC Glucose (74-100) mg/dL Calcium (8.7-10.3) mg/dL Total Bilirubin (0.2-1.0) mg/dL AST (15-37) U/L ALT (14-63) U/L Alkaline Phosphatase (46-116) U/L Creatine Kinase (26-276) U/L CK-MB (CK-2) (0.00-3.60) ng/mL Troponin I < 0.017 (0.000-0.056) ng/mL Total Protein (6.4-8.2) g/dL Albumin (3.40-5.00) g/dL SARS CoV-2 RNA Rapid GO (NEGATIVE) Result Diagrams: 11/17/20 10:15 11/17/20 10:15 Sepsis Event Note - Evaluation Sepsis Screening Result: No Definite Risk - Focused Exam Vital Signs: Vital Signs Temp Pulse Resp BP BP Pulse Ox Pulse Ox 11/18/20 08:14 109/60 11/18/20 06:25 95 11/18/20 06:17 96.8 F L 87 20 109/60 95 11/18/20 02:53 97.3 F 106 H 20 147/74 H 95 Problem List Initiated/Reviewed/Updated: Yes Orders Last 24hrs: Active Orders 24 hr Category Date Time Status Patient Status [ADT] Routine ADT 11/17/20 12:35 Active Blood Glucose Check, Bedside [RC] WITHMEALSANDBED Care 11/17/20 13:17 Active Oxygen Therapy [RC] PRN Care 11/17/20 12:35 Active Peripheral IV Care [RC] ,21 Care 11/17/20 10:23 Active Ready for Discharge [RC] PER UNIT ROUTINE Care 11/18/20 10:58 Ordered Telemetry Monitoring [Cardiac Monitoring] [RC] 03,07,11 Care 11/17/20 14:29 Active ,15,19,23 VTE/DVT Education [RC] PER UNIT ROUTINE Care 11/17/20 12:35 Active Vital Signs [RC] 03,07,11,15,19,23 Care 11/17/20 12:35 Active Heart Healthy Diet [DIET] Diet 11/17/20 Lunch Active Acetaminophen [TylenoL] Med 11/17/20 21:00 Active 650 mg PO BID Acetaminophen [TylenoL] Med 11/17/20 13:15 Active 650 mg PO DAILY PRN Apixaban [Eliquis] Med 11/17/20 21:00 Active 2.5 mg PO BID Atropine [Atropine 0.1 MG/ML] Med 11/17/20 14:30 Active See Dose Instructions IVPUSH ASDIRECTED PRN Dextrose 50% in Water Med 11/17/20 13:15 Active 50 ml IV ASDIRECTED PRN Docusate Sodium/Sennosides [Senna Plus] Med 11/17/20 21:00 Active 1 tab PO BID EPINEPHrine [EPINEPHrine 1:10,000] Med 11/17/20 14:30 Active 1 mg IVPUSH ASDIRECTED PRN Escitalopram [Lexapro] Med 11/18/20 09:00 Active 20 mg PO DAILY Fludrocortisone [Florinef] Med 11/18/20 08:00 Active 0.2 mg PO WITHBREAKFAST Glucagon,Human Recombinant [GlucaGen] Med 11/17/20 13:15 Active 1 mg IM ASDIRECTED PRN Insulin Aspart [NovoLOG] Med 11/17/20 12:00 Active 10 unit SUBCUT BID@1200,1800 Insulin Aspart [NovoLOG] Med 11/18/20 08:00 Active 8 unit SUBCUT DAILY@0800 Lidocaine 2% [Xylocaine 2%] Med 11/17/20 14:30 Active See Dose Instructions IVPUSH ASDIRECTED PRN Losartan [Cozaar] Med 11/18/20 09:00 Active 25 mg PO DAILY Magnesium Hydroxide [Milk of Magnesia] Med 11/17/20 13:15 Active 30 ml PO DAILY PRN Midodrine Med 11/17/20 18:00 Active 10 mg PO 0700,1200,1800 Nitroglycerin [Nitrostat] Med 11/17/20 14:30 Active 0.4 mg SL ASDIRECTED PRN Omeprazole Med 11/18/20 08:00 Active 20 mg PO 0800 Ondansetron [Zofran ODT] Med 11/17/20 13:15 Active 4 mg PO Q6H PRN Patient's Own Medication [Ptom] Med 11/17/20 21:00 Active 0 each SUBCUT BEDTIME Rosuvastatin [Crestor] Med 11/18/20 09:00 Active 40 mg PO DAILY Sodium Chloride 0.9% [Saline Flush] Med 11/17/20 10:21 Active 10 ml FLUSH Q8HR PRN glipiZIDE [Glucotrol XL] Med 11/18/20 09:00 Active 5 mg PO DAILY metFORMIN [Glucophage] Med 11/19/20 18:00 Hold 1,000 mg PO 0800,1800 oxyCODONE Med 11/17/20 13:38 Active 5 mg PO Q4H PRN polyethylene glycoL 3350 [MiraLAX] Med 11/17/20 13:15 Active 17 gm PO DAILY PRN traMADol [Ultram] Med 11/17/20 18:30 Active 50 mg PO Q6H Peripheral IV Insertion Adult [OM.PC] Routine Oth 11/17/20 10:21 Ordered Resuscitation Status Routine Resus Stat 11/17/20 12:35 Ordered EKG 12 Lead [EK] Stat Ther 11/17/20 10:21 Stop Req Medication Orders Acetaminophen (Tylenol) 650 mg PO BID [facility] Last Admin: 11/18/20 08:10 Dose: 650 mg Documented by: Admin: 11/17/20 20:51 Dose: 650 mg Documented by: TIN Acetaminophen (Tylenol) 650 mg PO DAILY PRN PRN Reason: Pain Apixaban (Eliquis) 2.5 mg PO BID [facility] Last Admin: 11/18/20 08:15 Dose: 5 mg Documented by: Admin: 11/17/20 20:51 Dose: 2.5 mg Documented by: TIN Atropine Sulfate (Atropine 0.1 Mg/Ml) 0 mg IVPUSH ASDIRECTED PRN PRN Reason: Heart. Dextrose/Water (Dextrose 50% In Water) 50 ml IV ASDIRECTED PRN PRN Reason: Hypoglycemia Epinephrine HCl (Epinephrine 1:10,000) 1 mg IVPUSH ASDIRECTED PRN PRN Reason: Heart. Escitalopram Oxalate (Lexapro) 20 mg PO DAILY [facility] Last Admin: 11/18/20 08:13 Dose: 20 mg Documented by: DEJA Fludrocortisone Acetate (Florinef) 0.2 mg PO WITHBREAKFAST [facility] Last Admin: 11/18/20 08:08 Dose: 0.2 mg Documented by: DEJA Glipizide (Glucotrol Xl) 5 mg PO DAILY [facility] Last Admin: 11/18/20 08:13 Dose: 5 mg Documented by: DEJA Glucagon (Glucagen) 1 mg IM ASDIRECTED PRN PRN Reason: Hypoglycemia Insulin Aspart (Novolog) 8 unit SUBCUT DAILY@0800 [facility] Last Admin: 11/18/20 08:17 Dose: 8 units Documented by: DEJA Insulin Aspart (Novolog) 10 unit SUBCUT BID@1200,1800 [facility] Last Admin: 11/17/20 17:58 Dose: 10 unit Documented by: Admin: 11/17/20 14:11 Dose: 10 unit Documented by: LEYLA Lidocaine HCl (Xylocaine 2%) 0 mg IVPUSH ASDIRECTED PRN PRN Reason: Heart. Losartan Potassium (Cozaar) 25 mg PO DAILY [facility] Last Admin: 11/18/20 08:14 Dose: 25 mg Documented by: DEJA Magnesium Hydroxide (Milk Of Magnesia) 30 ml PO DAILY PRN PRN Reason: Constipation Metformin HCl (Glucophage) 1,000 mg PO 0800,1800 [facility] Midodrine (Midodrine) 10 mg PO 0700,1200,1800 [facility] Last Admin: 11/18/20 06:00 Dose: 10 mg Documented by: Admin: 11/17/20 17:56 Dose: 10 mg Documented by: LEYLA Nitroglycerin (Nitrostat) 0.4 mg SL ASDIRECTED PRN PRN Reason: Heart. Omeprazole (Omeprazole) 20 mg PO 0800 [facility] Last Admin: 11/18/20 08:12 Dose: 20 mg Documented by: DEJA Ondansetron HCl (Zofran Odt) 4 mg PO Q6H PRN PRN Reason: Nausea/Vomiting Oxycodone HCl (Oxycodone) 5 mg PO Q4H PRN PRN Reason: Pain Last Admin: 11/18/20 01:01 Dose: 5 mg Documented by: Admin: 11/17/20 14:49 Dose: 5 mg Documented by: LEYLA Soliqucourtney 100 Unit-33 (Mcg/Ml) 0 each SUBCUT BEDTIME [facility] Last Admin: 11/17/20 20:52 Dose: 1 each Documented by: TIN Polyethylene Glycol (Miralax) 17 gm PO DAILY PRN PRN Reason: Constipation Rosuvastatin Calcium (Crestor) 40 mg PO DAILY [facility] Last Admin: 11/18/20 08:08 Dose: 40 mg Documented by: DEJA Senna/Docusate Sodium (Senna Plus) 1 tab PO BID [facility] Last Admin: 11/18/20 08:15 Dose: 1 tab Documented by: Admin: 11/17/20 20:51 Dose: 1 tab Documented by: TIN Sodium Chloride (Saline Flush) 10 ml FLUSH Q8HR PRN PRN Reason: keep vein open Tramadol HCl (Ultram) 50 mg PO Q6H [facility] Last Admin: 11/18/20 06:00 Dose: 50 mg Documented by: Admin: 11/17/20 23:36 Dose: 50 mg Documented by: Admin: 11/17/20 18:58 Dose: 50 mg Documented by: LEYLA Assessment/Plan Comment:: Please use this history and physical as a combined discharge summary as patient was seen and discharged same day History of present illness Bernardo is a 60 y/o gentleman who was admitted into observation due to chest pain and rule out [place]. The patient is a resident of a long-term care center and he came in by EMS with episodes of left-sided chest pain and radiation to his left arm associated with some shortness of breath diaphoresis and lightheadedness near syncope chest pain that he stated that occurred when he was walking back to bed from the bathroom. He does have a history of orthostatic hypotension and non-STEMI's in the past. He was given nitroglycerin x2 without improvement in the ED however morphine in route improved his symptoms. ED course, initial troponin negative, placed into observation, aspirin was given Hospital course Uneventful overnight negative troponins, EKG did not show any abnormality. He had no further chest pain nor shortness of breath. Vital signs good. He ambulated on the floor without difficulty. Medication changes/additions upon discharge Nitroglycerin as directed Disposition Will be discharged back to long-term care - Mortality Measure Prognosis:: Good
[2020-11-18 11:40] VITALS: BP 105/48; PULSE 80
[2020-11-18] MEDS: Insulin Aspart 100 Units/ML 3 ML Pen SUBCUT SCH (12:10)
[2020-11-19] MEDS ORDERED: metFORMIN 500 MG Tab PO SCH (18:00)
== END 2020-11-18 13:10 ==
LOC: KA.ED 10:17 → KA.MS 12:34
PROVIDERS: ADMIT Physician Assistant Medical; ATTEND Family Medicine
DX: R07.9 Chest pain, unspecified (principal); R06.02 Shortness of breath; E78.00 Pure hypercholesterolemia, unspecified; I12.9 Hypertensive chronic kidney disease with stage 1 through stage 4 chronic kidney disease, or unspecified chronic kidney disease; E11.22 Type 2 diabetes mellitus with diabetic chronic kidney disease; N18.9 Chronic kidney disease, unspecified; E66.9 Obesity, unspecified; E11.40 Type 2 diabetes mellitus with diabetic neuropathy, unspecified; Z20.822 Contact with and (suspected) exposure to COVID-19; Z88.2 Allergy status to sulfonamides; Z88.8 Allergy status to other drugs, medicaments and biological substances; Z79.899 Other long term (current) drug therapy; Z79.84 Long term (current) use of oral hypoglycemic drugs; Z98.890 Other specified postprocedural states; Z68.35 Body mass index [BMI] 35.0-35.9, adult
CPT/HCPCS: 36415; 71045; 71275; 80053; 82550; 82553; 82962; 84484; 85025; 85610; 85730; 93005; 96374; 96375; 99284; 99285-25; A9270-GY; G0378; J1815-GY; J2270; J2405; J7030; Q9967; U0002

== ENCOUNTER 2022-02-06 08:00 | Day surgery (SDC) | payer MEDICARE, OTHER, MEDICAID ==
[~2022-02-06 08:00] MED LIST: Sodium Chloride 0.9% 1,000 ML IV SCH; Sodium Chloride 0.9% 10 ML Syringe FLUSH PRN
[2022-02-06] MEDS ORDERED: Midazolam 1 MG/ML 2 ML SDV ONE (08:20)
[2022-02-06] MEDS ORDERED: Propofol 200 MG/20 ML SDV ONE (08:20)
[2022-02-06 10:47] VITALS: BP 124/65; PULSE 76
== END 2022-02-06 11:35 ==
LOC: KA.SDS 08:00
PROVIDERS: ATTEND Family Medicine
DX: Z12.11 Encounter for screening for malignant neoplasm of colon (principal); D12.4 Benign neoplasm of descending colon; I10 Essential (primary) hypertension; I95.1 Orthostatic hypotension; I25.10 Atherosclerotic heart disease of native coronary artery without angina pectoris; E78.5 Hyperlipidemia, unspecified; E66.9 Obesity, unspecified; E83.51 Hypocalcemia; E11.43 Type 2 diabetes mellitus with diabetic autonomic (poly)neuropathy; G90.8 Other disorders of autonomic nervous system; E83.42 Hypomagnesemia; F41.9 Anxiety disorder, unspecified; K21.9 Gastro-esophageal reflux disease without esophagitis; K59.04 Chronic idiopathic constipation; Z88.2 Allergy status to sulfonamides; Z88.1 Allergy status to other antibiotic agents; Z98.890 Other specified postprocedural states; Z90.49 Acquired absence of other specified parts of digestive tract; Z68.41 Body mass index [BMI] 40.0-44.9, adult; Z89.432 Acquired absence of left foot; Z79.84 Long term (current) use of oral hypoglycemic drugs; Z79.899 Other long term (current) drug therapy; Z79.4 Long term (current) use of insulin; Z79.82 Long term (current) use of aspirin; Z86.19 Personal history of other infectious and parasitic diseases; Z80.0 Family history of malignant neoplasm of digestive organs
CPT/HCPCS: 00812; 82947; J2250; J2704; J7030

== ENCOUNTER 2022-05-06 18:36 | Emergency (ER) | payer MEDICARE, OTHER, MEDICAID ==
[2022-05-06] MEDS ORDERED: Sodium Chloride 0.9% 10 ML Syringe FLUSH PRN (18:55)
[2022-05-06] MEDS ORDERED: Sodium Chloride 0.9% 1,000 ML IV ONE (19:01)
[2022-05-06] MEDS ORDERED: Aspirin 81 MG Tab.Chew PO ONE (19:03)
[2022-05-06] MEDS ORDERED: LORazepam 0.5 MG Tab PO ONE (19:03)
[2022-05-06 19:36] LABS: ANION GAP 16.2 mmol/L (5-15)
[2022-05-06] MEDS ORDERED: Metoprolol Tartrate 5 MG/5 ML SDV IVPUSH ONE ×3 (20:25→22:06)
[2022-05-06 20:27] LABS: CORONAVIRUS COVID-19 NAA POSITIVE (NEGATIVE)
[2022-05-06] MEDS ORDERED: Acetaminophen 500 MG Tab PO ONE (20:49)
[2022-05-06] MEDS ORDERED: Metoprolol Tartrate 5 MG/5 ML SDV ONE (22:07)
[2022-05-07 06:20] VITALS: BP 136/87; PULSE 104
== END 2022-05-07 01:27 ==
LOC: KA.ED 18:36 → SUPCPDRO 18:36 → KA.ED 05-07 01:27
DX: U07.1 COVID-19 (principal); I10 Essential (primary) hypertension; I25.10 Atherosclerotic heart disease of native coronary artery without angina pectoris; E78.00 Pure hypercholesterolemia, unspecified; I12.9 Hypertensive chronic kidney disease with stage 1 through stage 4 chronic kidney disease, or unspecified chronic kidney disease; E11.22 Type 2 diabetes mellitus with diabetic chronic kidney disease; E11.40 Type 2 diabetes mellitus with diabetic neuropathy, unspecified; N18.9 Chronic kidney disease, unspecified; E66.9 Obesity, unspecified; Z88.1 Allergy status to other antibiotic agents; Z88.2 Allergy status to sulfonamides; Z79.899 Other long term (current) drug therapy; Z79.4 Long term (current) use of insulin; Z68.41 Body mass index [BMI] 40.0-44.9, adult
CPT/HCPCS: 0240U; 36415; 71045; 80048; 84484; 85025; 93005; 96361; 96374; 96376; 99284; 99285-25; A9270-GY; J3490; J7030